=== PATIENT | male | born 1950 | race Caucasian/White ===

== ENCOUNTER → 2016-07-22 | Outpatient (CLI) | payer MEDICARE, OTHER ==
[2016-07-22 11:46] LABS: EKG EKG PERFORMED
[2016-07-22 12:42] LABS: Basophils % (A) 0 %; CH 26.9; CHCM 30.2; Eosinophils % (A) 1 %; HCT 34.9 % (39.0-53.0); HDW 2.88; HGB 10.8 gm/dL (13.0-17.5); Hypochromasia Marked; Luc # (Auto) 0.06; Luc % (Auto) 1; Lymphocytes # (A) 0.4 k/uL (1.0-4.8); Lymphocytes % (A) 7 %; MCH 27.5 pg (25.0-35.0); MCHC 30.9 g/dL (31.0-37.0); MCV 89.1 fL (80.0-100.0); Monocytes # (A) 0.3 k/uL (0-1.0); Monocytes % (A) 6 %; Neutrophils % (A) 85 %; RBC 3.92 m/uL (4.30-5.90); RDW 15.4 % (11.5-15.5); WBC 5.8 k/uL (3.8-10.6)
[2016-07-22 12:46] LABS: Anion Gap 13 mmol/L; Blood Urea Nitrogen 30 mg/dL (9-20); Carbon Dioxide 27 mmol/L (22-30); Chloride 95 mmol/L (98-107); Glucose 195 mg/dL (74-99); Non-African American GFR(MDRD) 59 (>60 ml/min/1.73 sqM); Potassium 4.1 mmol/L (3.5-5.1); Sodium 135 mmol/L (137-145)
== END | disposition home or self-care (01) ==
LOC: LABWHC1 11:24
PROVIDERS: ATTEND Urology
DX: Z01.812 Encounter for preprocedural laboratory examination (principal); E11.9 Type 2 diabetes mellitus without complications; R30.9 Painful micturition, unspecified; I10 Essential (primary) hypertension
CPT/HCPCS: 36415; 80048; 85025; 87077; 87086; 87186; 93005

== ENCOUNTER 2016-07-29 06:14 | Day surgery (SDC) | payer MEDICARE, OTHER ==
[2016-07-23 10:56] VITALS: BMI 23.8
[~2016-07-29 06:14] MED LIST: Pre Op ABX Message 1 EACH MISC MISCELLANE ONE
[2016-07-29] MEDS ORDERED: MIDAZOLAM 2 MG/2 ML VIAL IV PRN (06:25)
[2016-07-29] MEDS ORDERED: ONDANSETRON 4 MG/2 ML VIAL IVP ONE (06:25)
[2016-07-29] MEDS ORDERED: HYDROmorphone 1 MG/ML 1 ML SYRINGE IVP PRN (06:25)
[2016-07-29] MEDS ORDERED: LACTATED RINGERS 1,000 ML IV SCH (06:25)
[2016-07-29] MEDS ORDERED: DEXAMETHASONE SOD PHOSPHATE 10 MG/ML 1 ML VIAL IV ONE (06:25)
[2016-07-29] MEDS ORDERED: SCOPOLAMINE 1.5MG/72HR PATCH TRANSDERM ONE (06:25)
[2016-07-29] MEDS ORDERED: LIDOCAINE 1% 20 ML VIAL (10MG/ML) FOR IV START INTRADERMA PRN (06:25)
[2016-07-29] MEDS ORDERED: LIDOCAINE 1% 20 ML VIAL (10MG/ML) FOR IV START INTRADERMA ONE (07:01)
[2016-07-29 07:07] LABS: Glucose,Whole Blood 200 mg/dL (75-99)
[2016-07-29] MEDS ORDERED: ceFAZolin 1,000 MG in DEXTROSE/WATER 1 50ML.BAG IVPB STA (07:52)
[2016-07-29] MEDS ORDERED: MIDAZOLAM 2 MG/2 ML VIAL ONE (08:03)
[2016-07-29] MEDS ORDERED: SODIUM CHLORIDE 0.9% 50 ML with ceFAZolin 1,000 MG IV ONE ×2 (08:03)
[2016-07-29] MEDS ORDERED: LIDOCAINE 1% INJ 10MG/ML (20 ML MDV) ONE (08:03)
[2016-07-29] MEDS ORDERED: SODIUM CHLORIDE 0.9% 100 ML BAG ONE (08:03)
[2016-07-29] MEDS ORDERED: fentaNYL (PF) 50 MCG/ML 2 ML AMP ONE (08:03)
[2016-07-29] MEDS ORDERED: SUCCINYLCHOLINE CHLORIDE 100 MG/5 ML SYR IV ONE (08:03)
[2016-07-29] MEDS ORDERED: ceFAZolin 1,000 MG VIAL ONE (08:03)
[2016-07-29] MEDS ORDERED: PROPOFOL 10 MG/ML 20 ML VIAL IV ONE (08:03)
[2016-07-29] MEDS ORDERED: LACTATED RINGERS 1,000 ML IV ONE (08:47)
[2016-07-29 09:10] VITALS: TEMP 97.4
[2016-07-29 09:13] LABS: Glucose,Whole Blood 230 mg/dL (75-99)
[2016-07-29] MEDS ORDERED: INSULIN LISPRO (humaLOG) 300 UNIT/3 ML VIAL SQ ONE (09:24)
[2016-07-29 10:19] LABS: Glucose,Whole Blood 246 mg/dL (75-99)
[2016-07-29] MEDS ORDERED: Acetaminophen-Codeine 300-30mg TAB PO ONE (10:23)
[2016-07-29 10:28] VITALS: BP 164/74; PULSE 67; RESP 18
--- NOTE | 2016-07-29 11:06 | OP ---
DATE OF SERVICE: 07/29/2016 SURGEON: HIRAM CALVIN MD PREOPERATIVE DIAGNOSIS: Incomplete bladder emptying secondary to bladder outflow obstruction. POSTOPERATIVE DIAGNOSIS: Incomplete bladder emptying secondary to bladder outflow obstruction. OPERATION: Transurethral resection of bladder neck. ANESTHESIA: General. The patient is a 65-year-old male with a history of a chronic urinary tract infection and incomplete bladder emptying, who has failed treatment with alpha blockers. Cystoscopy identified a relatively short prostatic urethra with a tight bladder neck. The bladder was heavily trabeculated with numerous cellules. Transurethral incision of the prostate was initially planned. DESCRIPTION OF THE PROCEDURE: The patient was taken to the operative suite where adequate general anesthesia via orotracheal intubation was instituted. The patient was placed in the dorsal lithotomy position with his legs suspended from padded Randolph stirrups. Pneumatic compression stockings were applied to the lower legs. The genitalia was prepped with Betadine soap, painted with Betadine solution, and draped in sterile fashion. A prophylactic dorsal urethrotomy to 26 Czech was performed using the Krebs urethrotome. The 26 Czech resectoscope with visual obturator and 30-degree lens was passed through the urethra under direct vision. Anterior urethra was unremarkable. Prostatic urethra was relatively short with a prominent bladder neck. The bladder was examined and some sediment was present on the floor which was irrigated out. The remainder of the bladder was free of tumor, foreign body and diverticulum. Numerous cellules were present and the bladder was heavily trabeculated. I initially had hoped to perform a transurethral incision of the prostate but unfortunately a knife electrode was not available. It was elected to perform a limited resection of the bladder neck. This was performed using the [employer] resectoscope and loop cutting electrode. The bladder neck was incised between 5 o'clock and 7 o'clock down to the capsular fibers. The resection was continued distally up to the region of the veru. Bleeding vessels were controlled using electrocautery. The prostate tissue was removed using the Nelson evacuator. After ensuring adequate hemostasis, the resectoscope was withdrawn. An 18 Czech Meier catheter was inserted and left to gravity drainage. The patient tolerated the procedure well and left the operating room awake and in satisfactory condition. Blood loss was between 5 and 10 mL. Patient's catheter will be removed in the morning provided that his urine is clear. [facility]
== END 2016-07-29 12:01 | disposition home or self-care (01) ==
LOC: OR 06:14
PROVIDERS: ATTEND Urology
DX: N40.1 Benign prostatic hyperplasia with lower urinary tract symptoms (principal); N32.0 Bladder-neck obstruction; R33.9 Retention of urine, unspecified; N34.2 Other urethritis; Z94.2 Lung transplant status; I10 Essential (primary) hypertension; K21.9 Gastro-esophageal reflux disease without esophagitis; E11.9 Type 2 diabetes mellitus without complications; Z79.4 Long term (current) use of insulin; F32.9 Major depressive disorder, single episode, unspecified; M81.0 Age-related osteoporosis without current pathological fracture; J45.909 Unspecified asthma, uncomplicated; Z79.899 Other long term (current) drug therapy; Z79.51 Long term (current) use of inhaled steroids; Z88.1 Allergy status to other antibiotic agents; Z88.8 Allergy status to other drugs, medicaments and biological substances
CPT/HCPCS: 88305; 52500; J2250; J2405; J0690 ×2; J2001; J3010; J0330; J2704

== ENCOUNTER 2016-08-01 01:46 | Emergency (ER) | payer MEDICARE, OTHER ==
[2016-08-01] MEDS ORDERED: MORPHINE SULFATE 4 MG/ML SYRINGE IM STA (02:04)
[2016-08-01 02:07] VITALS: PULSE 75
--- NOTE | 2016-08-01 02:16 | ED ---
General Adult HPI - General Chief complaint: Urogenital Stated complaint: unable to urinate Time Seen by Provider: 08/01/16 01:47 Source: patient Mode of arrival: ambulatory Limitations: no limitations - History of Present Illness Initial comments: This is a 65-year-old male who presents emergency department for urinary retention. The patient recently had prostate surgery 3 days ago. He states that he was doing fine until this afternoon when he was unable to urinate. He has a severe amount of discomfort because of this. He states the last time he urinated was at 4 PM. Denies any nausea or vomiting. No fevers or chills. No other complaints. - Related Data Home Medications Medication Instructions Recorded Confirmed Alendronate Sodium [Fosamax] 70 mg PO WE 11/06/13 07/31/16 Calcium Carbonate [Antacid] 150 mg PO BID 11/06/13 07/31/16 Ergocalciferol (Vitamin D2) 50,000 units PO Q15D 11/06/13 07/31/16 [Drisdol] Fludrocortisone [Florinef] 0.1 mg PO QAM 11/06/13 07/31/16 Gammagard 35 gm IV QMONTH 11/06/13 07/31/16 Metoprolol Succinate (ER) [Toprol 100 mg PO QAM 11/06/13 07/31/16 XL] Omeprazole [PriLOSEC] 20 mg PO BID 11/06/13 07/31/16 Sulfamethox-Tmp 800-160Mg [Bactrim 800 mg PO MOWEFR 11/06/13 07/31/16 DS 800-160 mg] Tacrolimus [Prograf] 3 mg PO BID 11/06/13 07/31/16 Tamsulosin HCl [Flomax] 0.4 mg PO QAM 11/06/13 07/31/16 amLODIPine BESYLATE [Norvasc] 5 mg PO QAM 11/06/13 07/31/16 predniSONE 20 mg PO DAILY 11/06/13 07/31/16 Sodium Bicarbonate Tab 1,300 mg PO BID 11/07/13 07/31/16 Insulin Detemir [Levemir] 50 unit SQ QAM 01/02/14 07/31/16 Azithromycin [Zithromax] 250 mg PO MOWEFR 11/05/15 07/31/16 Sertraline [Zoloft] 25 mg PO QAM 04/30/16 07/31/16 HYDROcodone/APAP 5-325MG [[place] 1 tab PO Q4H PRN 07/23/16 07/31/16 5-325] Magnesium Chloride [Mag64] 64 mg PO BID 07/23/16 07/31/16 Multivitamins, Thera [Multivitamin] 1 tab PO DAILY 07/23/16 07/31/16 Previous Rx's Medication Instructions Recorded Acetaminophen-Codeine 300-30mg 1 tab PO Q6H PRN #10 tablet 07/29/16 [Tylenol w/codeine #3] Allergies Allergy/AdvReac Type Severity Reaction Status Date / Time clarithromycin [From Biaxin] Allergy instructed Verified 07/29/16 06:44 not to take r/t lung transplant ibuprofen [From Motrin] Allergy Abdominal Verified 07/29/16 06:44 Pain Review of Systems ROS Statement: Those systems with pertinent positive or pertinent negative responses have been documented in the HPI. ROS Other: All systems not noted in ROS Statement are negative. Past Medical History Past Medical History: Asthma, COPD, GERD/Reflux, Osteoarthritis (OA), Pneumonia , Respiratory Disorder Additional Past Medical History / Comment(s): ARTHRITIS/BACK PAIN/PULMONARY FIBROSIS/DEGENERATIVE DISC DS/DEPRESSED IMMUNE SYSTEM History of Any Multi-Drug Resistant Organisms: None Reported Past Surgical History: Heart Catheterization, Hernia Repair Additional Past Surgical History / Comment(s): RT & LT CATARACT REMOVED/ COLONOSCOPY/BILATERAL LUNG TRANSPLANT 20082013 HERNIA REPAIR UMBILICAL , LEFT INGUINAL AND FEMEROL Past Anesthesia/Blood Transfusion Reactions: No Reported Reaction Past Psychological History: Anxiety, Depression Smoking Status: Former smoker Past Alcohol Use History: None Reported Past Drug Use History: None Reported General Exam - General Exam Comments Initial Comments: Constitutional: Awake alert ears uncomfortable Head: Normocephalic atraumatic Eyes: no conjunctival injection No scleral icterus EOMI Neck: No JVD Supple Heart: Regular rate rhythm normal S1-S2 no murmurs Lungs: Clear to auscultation bilaterally No wheezing No rales Abdomen: Soft nondistended tenderness in the suprapubic region with distended bladder Extremities: Non edematous DP pulses intact Radial pulses intact Neuro: A&Ox3 No focal neurologic deficits Psych: Appropriate mood and affect Limitations: no limitations Course Vital Signs 08/01/16 01:59 Temperature 98.2 F Pulse Rate 75 Respiratory 20 Rate Blood Pressure 196/86 O2 Sat by Pulse 99 Oximetry Medical Decision Making - Medical Decision Making Patient had Meier catheter placed with immediate draining of over 1000 mL of bloody urine. Urinalysis reveals UTI. The patient is on Macrobid currently along with Bactrim and azithromycin. I told him to neuro telemetry the Meier in. He is to follow-up with Dr. Terrazas her about removal. He can return if he has worsening symptoms. - Lab Data Lab Results 08/01/16 Range/Units 02:10 Urine Color Light Red Urine Appearance Cloudy (Clear) Urine pH 6.0 (5.0-8.0) Ur Specific [place] 1.012 (1.001-1.035) Urine Protein 1+ H (Negative) Urine Glucose (UA) 4+ H (Negative) Urine Ketones Negative (Negative) Urine Blood Large H (Negative) Urine Nitrate Negative (Negative) Urine Bilirubin Negative (Negative) Urine Urobilinogen <2.0 (<2.0) mg/dL Ur Leukocyte Esterase Moderate H (Negative) Urine RBC >182 H (0-5) /hpf Urine WBC >182 H (0-5) /hpf Disposition Clinical Impression: Urinary retention Disposition: HOME SELF-CARE Condition: Stable Instructions: Urinary Tract Infection in Men (ED), Urinary Retention in Men (ED ) Referrals: Louie Alaniz MD [Primary Care Provider] - 1-2 days Kevin Teresa MD [STAFF PHYSICIAN] - 1-2 days
[2016-08-01 02:27] LABS: Appearance,Urine Cloudy (Clear); Bilirubin,Urine Negative (Negative); Glucose,Urine (UA) 4+ (Negative); Ketones,Urine Negative (Negative); Leukocyte Esterase,Urine Moderate (Negative); Nitrite,Urine Negative (Negative); Particle Count 6819; Protein,Urine 1+ (Negative); RBC,Urine >182 /hpf (0-5); Specific Gravity,Urine 1.012 (1.001-1.035); UA Billing (MACRO vs. MICRO) MICRO; Urobilinogen,Urine <2.0 mg/dL (<2.0); WBC,Urine >182 /hpf (0-5)
[2016-08-01 03:01] VITALS: BP 178/78; RESP 18; TEMP 97.8
== END 2016-08-01 03:26 | disposition home or self-care (01) ==
LOC: EC 01:46
DX: R33.9 Retention of urine, unspecified (principal); K21.9 Gastro-esophageal reflux disease without esophagitis; J45.909 Unspecified asthma, uncomplicated; J44.9 Chronic obstructive pulmonary disease, unspecified; F32.9 Major depressive disorder, single episode, unspecified; F41.9 Anxiety disorder, unspecified; Z87.891 Personal history of nicotine dependence; Z79.51 Long term (current) use of inhaled steroids; Z79.4 Long term (current) use of insulin; Z79.899 Other long term (current) drug therapy; Z88.1 Allergy status to other antibiotic agents; Z88.6 Allergy status to analgesic agent; Z98.890 Other specified postprocedural states
CPT/HCPCS: 96372 ×2; 99283 ×2; 51702 ×2; 81001; J2270

== ENCOUNTER → 2017-01-06 | Outpatient (CLI) | payer MEDICARE, OTHER ==
--- NOTE | 2017-01-06 09:23 | US ---
EXAMINATION TYPE: US abdomen limited DATE OF EXAM: 01/06/2017 COMPARISON: NONE CLINICAL HISTORY: 66-year-old male Abdominal distention R14.0. TECHNIQUE: Multiple sonographic images of the 4 abdominal quadrants were obtained. FINDINGS: No ascites fluid is identified in the 4 abdominal quadrants. Incidentally, the liver has a slight het erogeneous echotexture. IMPRESSION: 1. No abdominal ascites fluid seen. The 4 quadrants were scanned. 2. Incidentally, heterogeneous appearance to the liver. This could be on a technical basis. Correlate to exclude underlying nonspecific hepatocellular disease.
== END | disposition home or self-care (01) ==
LOC: RADUSWWP 07:53
PROVIDERS: ATTEND Internal Medicine
DX: R14.0 Abdominal distension (gaseous) (principal)
CPT/HCPCS: 76705

== ENCOUNTER 2017-05-06 11:43 | Emergency (ER) | payer MEDICARE, OTHER ==
[2017-05-06] MEDS ORDERED: HYDROmorphone 1 MG/ML 1 ML SYRINGE IVP STA ×2 (12:16→15:19)
[2017-05-06] MEDS ORDERED: RX INFO: IV CONTRAST WAS GIVEN 1 EACH MISC MISCELLANE PRN (12:16)
--- NOTE | 2017-05-06 12:19 | ED ---
General Adult HPI - General Chief complaint: Back Pain/Injury Stated complaint: dr sent/severe back pain Time Seen by Provider: 05/06/17 12:01 Source: patient, RN notes reviewed Mode of arrival: ambulatory Limitations: physical limitation - History of Present Illness Initial comments: 66 yo male presents to the ER with cc of left-sided back pain. Patient states he does suffer from back pain but over the last 4 days his back pain has been flaring up. He states is in the left side of his back and radiates down his left leg. He sees a pain management doctor for this and he is on [place] and he has had injections. Patient states that his pain was not flared up this much in a very long time and he is concerned. He has multiple specialists he's had multiple surgeries and does have an extensive past medical history. He states that his most recent workup discussed his ascites on his abdomen and discussed most likely a paracentesis at some point in the future. Patient denies any abdominal pain any nausea any vomiting with this. He states just his neck pain radiating down his left leg. He denies any falls traumas or recent. Patient denies any recent fever, chills, shortness of breath, chest pain, abdominal pain , nausea vomiting, numbness or tingling, dysuria or hematuria, constipation or diarrhea, headaches or visual changes, or any other current symptoms. - Related Data Home Medications Medication Instructions Recorded Confirmed Alendronate Sodium [Fosamax] 70 mg PO WE 11/06/13 05/06/17 Ergocalciferol (Vitamin D2) 50,000 units PO Q15D 11/06/13 05/06/17 [Drisdol] Fludrocortisone [Florinef] 0.1 mg PO QAM 11/06/13 05/06/17 Gammagard 35 gm IV Q28D 11/06/13 05/06/17 Metoprolol Succinate (ER) [Toprol 100 mg PO QAM 11/06/13 05/06/17 XL] Omeprazole [PriLOSEC] 20 mg PO BID 11/06/13 05/06/17 Sulfamethox-Tmp 800-160Mg [Bactrim 800 mg PO MOWEFR 11/06/13 05/06/17 DS 800-160 mg] Tacrolimus [Prograf] 3 mg PO BID 11/06/13 05/06/17 predniSONE 20 mg PO DAILY 11/06/13 05/06/17 Sodium Bicarbonate Tab 1,300 mg PO BID 11/07/13 05/06/17 Insulin Detemir [Levemir] 65 unit SQ QAM 01/02/14 05/06/17 Azithromycin [Zithromax] 250 mg PO MOWEFR 11/05/15 05/06/17 Sertraline [Zoloft] 25 mg PO QAM 04/30/16 05/06/17 HYDROcodone/APAP 5-325MG [[place] 1 tab PO TID PRN 07/23/16 05/06/17 5-325] Magnesium Chloride [Mag64] 64 mg PO BID 07/23/16 05/06/17 Multivitamins, Thera [Multivitamin] 1 tab PO DAILY 07/23/16 05/06/17 Ferrous Sulfate [Feosol] 325 mg PO BID 09/29/16 05/06/17 Allopurinol [Zyloprim] 100 mg PO DAILY 05/06/17 05/06/17 Calcium Carbonate 1500mg 1,500 mg PO BID 05/06/17 05/06/17 Fluticasone Nasal [place] [Flonase 2 spr EA NOSTRIL DAILY PRN 05/06/17 05/06/17 Nasal [place]] Losartan/Hydrochlorothiazide 1 tab PO DAILY 05/06/17 05/06/17 [Hyzaar 100-25 Tablet] Metoclopramide [Reglan] 10 mg PO QAM 05/06/17 05/06/17 Sennosides [Senokot] 8.6 mg PO DAILY PRN 05/06/17 05/06/17 amLODIPine [Norvasc] 10 mg PO DAILY 05/06/17 05/06/17 Previous Rx's Medication Instructions Recorded HYDROcodone/APAP 10-325MG [[place] 1 tab PO Q6H PRN #20 tab 05/06/17 10-325] Ondansetron Odt [Zofran ODT] 4 mg PO Q8HR PRN #20 tab 05/06/17 Tamsulosin [Flomax] 0.4 mg PO DAILY #5 cap 05/06/17 Allergies Allergy/AdvReac Type Severity Reaction Status Date / Time clarithromycin [From Biaxin] Allergy instructed Verified 05/06/17 12:27 not to take r/t lung transplant ibuprofen [From Motrin] Allergy Abdominal Verified 05/06/17 12:27 Pain Review of Systems ROS Statement: Those systems with pertinent positive or pertinent negative responses have been documented in the HPI. ROS Other: All systems not noted in ROS Statement are negative. Past Medical History Past Medical History: Asthma, COPD, Diabetes Mellitus, GERD/Reflux, Osteoarthritis (OA), Pneumonia, Prostate Disorder, Renal Disease, Respiratory Disorder Additional Past Medical History / Comment(s): having difficulty urinating, daily steroid,ARTHRITIS/BACK PAIN/PULMONARY FIBROSIS/DEGENERATIVE DISC DS/ DEPRESSED IMMUNE SYSTEM History of Any Multi-Drug Resistant Organisms: None Reported Past Surgical History: Heart Catheterization, Hernia Repair Additional Past Surgical History / Comment(s): RT & LT CATARACT REMOVED/ COLONOSCOPY/BILATERAL LUNG TRANSPLANT 20082013 HERNIA REPAIR UMBILICAL , LEFT INGUINAL AND FEMEROL. TURP - 2015 Past Anesthesia/Blood Transfusion Reactions: No Reported Reaction Past Psychological History: Anxiety, Depression Smoking Status: Former smoker Past Alcohol Use History: None Reported Past Drug Use History: None Reported - Past Family History Mother Family Medical History: No Reported History General Exam - General Exam Comments Initial Comments: General: The patient is awake and alert, in no distress, and does not appear acutely ill. Eye: Pupils are equal, round and reactive to light, extra-ocular movements are intact; there is normal conjunctiva bilaterally. No signs of icterus. Ears, nose, mouth and throat: There are moist mucous membranes and. Neck: The neck is supple, there is no tenderness. Cardiovascular: There is a regular rate and rhythm. No murmur, rub or gallop is appreciated. Respiratory: Lungs are clear to auscultation, respirations are non-labored, breath sounds are equal. No wheezes, stridor, rales, or rhonchi. Gastrointestinal: Soft, non-distended, non-tender abdomen without masses or organomegaly noted. There is no rebound or guarding present. Left sided CVA tenderness. Bowel sounds are unremarkable. Back: There is no tenderness to palpation in the midline. There is no obvious deformity. No rashes noted. Left sided straight leg raise is positive. Musculoskeletal: Normal ROM, no tenderness, There is no pedal edema. There is no calf tenderness or swelling. Sensation intact. Pulses equal bilaterally 2+. Neurological: CN II-XII intact, There are no obvious motor or sensory deficits. Coordination appears grossly intact. Speech is normal. Skin: Skin is warm and dry and no rashes or lesions are noted. Psychiatric: Cooperative, appropriate mood & affect, normal judgment. Limitations: physical limitation Course Vital Signs 05/06/17 05/06/17 11:53 14:21 Temperature 98.0 F Pulse Rate 80 71 Respiratory 20 20 Rate Blood Pressure 162/72 147/71 O2 Sat by Pulse 97 97 Oximetry Medical Decision Making - Medical Decision Making 66-year-old male presents to the emergency department with a chief complaint of left-sided flank pain and back pain. At this time patient's CAT scan has been discussed in detail with them. We did discuss the findings. He does have history of the bladder issues in the past. At this time it does appear to be a 6 mm calculus to the left ureter. This tenderness is a 60 causing the patient' s flank pain. This time we will give him pain medications for home. We discussed taking the Flomax that he states he has at home as well as nausea medication. We did discuss follow-up with urology and he states that he normally sees Dr. catherine castillo. We will give him Dr. Penn as well since he is on-call. We did discuss return parameters all questions. The patient stated that he understood any significant this plan. This time he will be discharged home. - Lab Data Result diagrams: 05/06/17 12:31 05/06/17 12:31 Lab Results 05/06/17 05/06/17 Range/Units 12:31 12:31 WBC 9.5 (3.8-10.6) k/uL RBC 4.12 L (4.30-5.90) m/uL Hgb 13.5 (13.0-17.5) gm/dL Hct 41.2 (39.0-53.0) % MCV 99.8 (80.0-100.0) fL MCH 32.7 (25.0-35.0) pg MCHC 32.7 (31.0-37.0) g/dL RDW 14.8 (11.5-15.5) % Plt Count 137 L (150-450) k/uL Neutrophils % 83 % Lymphocytes % 7 % Monocytes % 7 % Eosinophils % 1 % Basophils % 1 % Neutrophils # 7.9 H (1.3-7.7) k/uL Lymphocytes # 0.7 L (1.0-4.8) k/uL Monocytes # 0.7 (0-1.0) k/uL Eosinophils # 0.1 (0-0.7) k/uL Basophils # 0.1 (0-0.2) k/uL Macrocytosis Slight Sodium 135 L (137-145) mmol/L Potassium 4.3 (3.5-5.1) mmol/L Chloride 97 L (98-107) mmol/L Carbon Dioxide 26 (22-30) mmol/L Anion Gap 12 mmol/L BUN 24 H (9-20) mg/dL Creatinine 1.48 H (0.66-1.25) mg/dL Est GFR (MDRD) Af Amer 57 (>60 ml/min/1.73 sqM) Est GFR (MDRD) Non-Af 47 (>60 ml/min/1.73 sqM) Glucose 160 H (74-99) mg/dL Calcium 9.7 (8.4-10.2) mg/dL Phosphorus 2.6 (2.5-4.5) mg/dL Magnesium 1.5 L (1.6-2.3) mg/dL Total Bilirubin 0.6 (0.2-1.3) mg/dL AST 68 H (17-59) U/L ALT 77 H (21-72) U/L Alkaline Phosphatase 108 (38-126) U/L Total Protein 8.2 (6.3-8.2) g/dL Albumin 4.5 (3.5-5.0) g/dL Amylase 58 (30-110) U/L Lipase 99 (23-300) U/L - Radiology Data Radiology results: report reviewed, image reviewed Disposition Clinical Impression: Left ureteral calculus, Lymphadenopathy, Chronic back pain Disposition: HOME SELF-CARE Condition: Stable Instructions: Chronic Back Pain (ED), Kidney Stones (ED) Additional Instructions: Please use medication as discussed. Please follow up with family doctor if symptoms have not improved over the next two days. Please return to the emergency room if your symptoms increase or worsen or for any other concerns. Prescriptions: HYDROcodone/APAP 10-325MG [[place] 10-325] 1 tab PO Q6H PRN #20 tab PRN Reason: Pain Ondansetron Odt [Zofran ODT] 4 mg PO Q8HR PRN #20 tab PRN Reason: Nausea Tamsulosin [Flomax] 0.4 mg PO DAILY #5 cap Referrals: Reinaldo Alaniz MD [STAFF PHYSICIAN] - 1-2 days Robinson Christie MD [STAFF PHYSICIAN] - 1-2 days Time of Disposition: 15:18
[2017-05-06 12:46] LABS: Basophils # (A) 0.1 k/uL (0-0.2); Basophils % (A) 1 %; CH 33.8; Eosinophils # (A) 0.1 k/uL (0-0.7); Eosinophils % (A) 1 %; HCT 41.2 % (39.0-53.0); HDW 3.08; HGB 13.5 gm/dL (13.0-17.5); Luc # (Auto) 0.15; Luc % (Auto) 2; Lymphocytes # (A) 0.7 k/uL (1.0-4.8); Lymphocytes % (A) 7 %; MCH 32.7 pg (25.0-35.0); MCHC 32.7 g/dL (31.0-37.0); MCV 99.8 fL (80.0-100.0); Macrocytosis Slight; Monocytes # (A) 0.7 k/uL (0-1.0); Monocytes % (A) 7 %; Neutrophils # (A) 7.9 k/uL (1.3-7.7); Neutrophils % (A) 83 %; RBC 4.12 m/uL (4.30-5.90); RDW 14.8 % (11.5-15.5); WBC 9.5 k/uL (3.8-10.6); WBC (Perox) 9.56
[2017-05-06 12:56] LABS: Calcium 9.7 mg/dL (8.4-10.2); Magnesium 1.5 mg/dL (1.6-2.3); Phosphorus 2.6 mg/dL (2.5-4.5); Potassium 4.3 mmol/L (3.5-5.1); Total Bilirubin 0.6 mg/dL (0.2-1.3); Total Protein 8.2 g/dL (6.3-8.2)
--- NOTE | 2017-05-06 13:54 | CT ---
EXAMINATION TYPE: CT abdomen pelvis wo con DATE OF EXAM: 05/06/2017 COMPARISON: NONE HISTORY: 66-year-old male Severe back pain CT DLP: 754 mGycm. Automated exposure control for dose reduction was used. TECHNIQUE: Contiguous axial scanning of the abdomen and pelvis without IV contrast. Coronal and sagit jarrett reconstructions performed. FINDINGS: The heart is upper limits of normal in size without pericardial effusion. Coronary vessel calcificati ons are present in remarkable for coronary artery disease. Calcified right hilar and left paraesophag eal lymph nodes suggest prior granulomatous disease. Strandy atelectasis or scarring in the lower nick gs. Small hiatal hernia. Noncontrast appearance of the liver, adrenal glands, kidneys, and atrophic pancreas show no gross abn ormality. There is small dependent gallstones without abnormal gallbladder distention. Splenomegaly at 15.5 cm craniocaudal. Despite the absence of hydronephrosis, there is a suspicious 6 mm calcification in the left hemipelvi s along the course of the distal left ureter. No dilated small bowel, free fluid, or free air. Mild prostatic calcifications within the abdominal aorta and iliac arteries. There is a small right mid abdominal omental fat-containing hernia measuring 2.0 cm. The abdominal wa ll defect is very small. Mild surrounding inflammation. There seems to be some surgical material lisa g the left paramedian upper to mid abdomen. Mild stool burden in mild sigmoid diverticulosis without pericolonic inflammatory change. Mild circumferential bladder wall thickening with bladder diverticula noted measuring up to 2.8 cm. T here is a 3.3 x 1.3 cm lobulated hypodense area anterolateral aspect of the bladder wall just deep to the abdominal wall musculature which extends to the level of the superficial inguinal ring, axial im age 71. Exact etiology is uncertain. There appears to be a subtle fat plane on the coronal series, im age 48. Follow-up can be performed. Otherwise, no lymphadenopathy or abnormal fluid collection seen i n the pelvis. Bones: Sclerotic focus measuring 1.3 cm medial posterior right iliac bone was present back in 2009 co mpatible with a benign bone island. Degenerated dextroconvex curvature. IMPRESSION: 1. 6 mm distal left ureteral calculus without significant hydronephrosis. 2. Small 2 cm omental fat-containing hernia through a tiny defect in the right mid abdominal wall. T here is some surrounding fat stranding that could represent mild inflammation such as in the setting of fatty hernia incarceration. Correlate for any focal pain here. 3. Splenomegaly and cholelithiasis. Small hiatal hernia. 4. Mild circumferential bladder wall thickening and diverticular change in the bladder. Findings sug gest chronic bladder outlet obstruction. Clinically correlate. 5. A 3.3 x 1.3 cm lobulated hypodense area located anterolateral to the bladder just deep to the abd ominal wall musculature. Etiology is uncertain. Recommend three-month follow-up to exclude abnormal l ymphadenopathy.
[2017-05-06 15:27] VITALS: BP 153/71; PULSE 70; RESP 16; TEMP 98.9
== END 2017-05-06 15:35 | disposition home or self-care (01) ==
LOC: EC 11:43
DX: N20.1 Calculus of ureter (principal); R59.1 Generalized enlarged lymph nodes; M54.9 Dorsalgia, unspecified; G89.29 Other chronic pain; J44.1 Chronic obstructive pulmonary disease with (acute) exacerbation; E11.9 Type 2 diabetes mellitus without complications; K21.9 Gastro-esophageal reflux disease without esophagitis; M19.90 Unspecified osteoarthritis, unspecified site; N42.9 Disorder of prostate, unspecified; F32.9 Major depressive disorder, single episode, unspecified; F41.9 Anxiety disorder, unspecified; Z87.891 Personal history of nicotine dependence; Z79.4 Long term (current) use of insulin; Z79.52 Long term (current) use of systemic steroids; Z79.899 Other long term (current) drug therapy; Z88.1 Allergy status to other antibiotic agents; Z88.6 Allergy status to analgesic agent
CPT/HCPCS: 36415; 80053; 82150; 83690; 83735; 84100; 85025; 74176; 99284; 96374; 96376; J1170

== ENCOUNTER → 2017-07-29 | Outpatient (CLI) | payer MEDICARE, OTHER ==
--- NOTE | 2017-07-29 14:49 | XR ---
EXAMINATION TYPE: XR abdomen 1V DATE OF EXAM: 07/29/2017 CLINICAL DATA: 66-year-old male kidney stones, pain, PHH COMPARISON: Correlation CT 05/06/2017 FINDINGS: Supine imaging limited for assessment of free intraperitoneal air. Mild stool burden. No dilated small bowel loops. Prominent air and likely ingested debris within the stomach. Gallstones are seen in the right upper quadrant as well as splenic artery calcifications in the left upper quadrant. Possible 3 mm calcification projecting at the right mid kidney. A 1.1 cm density projecting over the right SI joint corresponds to a bone island in the posterior rig ht iliac bone. Vascular calcifications and surgical clips in the pelvis. IMPRESSION: 1. A 3 mm right renal calculus, new from 05/06/2017, is possible. 2. Otherwise, calcifications seem to represent cholelithiasis, splenic artery calcifications, and a r ight sided pelvic bone island.
== END | disposition home or self-care (01) ==
LOC: RADXRMAIN 13:17
PROVIDERS: ATTEND Urology
DX: K80.20 Calculus of gallbladder without cholecystitis without obstruction (principal); I70.8 Atherosclerosis of other arteries; M89.8X8 Other specified disorders of bone, other site
CPT/HCPCS: 74018

== ENCOUNTER 2018-03-02 13:35 | Emergency (ER) | payer MEDICARE, OTHER ==
[2018-03-02 14:09] VITALS: RESP 18
--- NOTE | 2018-03-02 15:02 | ED ---
General Adult HPI - General Chief complaint: Fall Stated complaint: fall, rt knee pain Time Seen by Provider: 03/02/18 14:15 Source: patient, family, RN notes reviewed Mode of arrival: wheelchair Limitations: no limitations - History of Present Illness Initial comments: 67-year-old male sent to the emergency department for a chief complaint of fall times one day. Patient states he was pushing a hammock with wheals across his yard yesterday when he tripped and fell. Patient states he injured his right elbow and right knee as well as his left shoulder. Patient is concerned most about the right knee. He states it is painful to walk on and he has been using his cane due to the pain. Patient denies any pain in the calf. Patient denies hitting his head. Patient denies any neck or back pain. Patient states he can move the right elbow without any difficulty but does have pain with moving the left shoulder and right knee. Patient has no other complaints at this time including shortness of breath, chest pain, abdominal pain, nausea or vomiting, headache, or visual changes. - Related Data Home Medications Medication Instructions Recorded Confirmed Alendronate Sodium [Fosamax] 70 mg PO WE 11/06/13 03/02/18 Ergocalciferol (Vitamin D2) 50,000 units PO Q15D 11/06/13 03/02/18 [Drisdol] Fludrocortisone [Florinef] 0.1 mg PO QAM 11/06/13 03/02/18 Metoprolol Succinate (ER) [Toprol 100 mg PO QAM 11/06/13 03/02/18 XL] Sulfamethox-Tmp 800-160Mg [Bactrim 800 mg PO MOWEFR 11/06/13 03/02/18 DS 800-160 mg] Tacrolimus [Prograf] 3 mg PO BID 11/06/13 03/02/18 Sodium Bicarbonate Tab 1,300 mg PO BID 11/07/13 03/02/18 Insulin Detemir [Levemir] 65 unit SQ QAM 01/02/14 03/02/18 Azithromycin [Zithromax] 250 mg PO MOWEFR 11/05/15 03/02/18 HYDROcodone/APAP 5-325MG [Tyler 1 tab PO QID PRN 07/23/16 03/02/18 5-325] Magnesium Chloride [Mag64] 64 mg PO BID 07/23/16 03/02/18 Multivitamins, Thera [Multivitamin] 1 tab PO DAILY 07/23/16 03/02/18 Ferrous Sulfate [Feosol] 325 mg PO BID 09/29/16 03/02/18 Allopurinol [Zyloprim] 100 mg PO DAILY 05/06/17 03/02/18 Calcium Carbonate 1500mg 1,500 mg PO MOFR 05/06/17 03/02/18 Losartan/Hydrochlorothiazide 1 tab PO DAILY 05/06/17 03/02/18 [Hyzaar 100-25 Tablet] Metoclopramide [Reglan] 10 mg PO QAM 05/06/17 03/02/18 amLODIPine [Norvasc] 10 mg PO DAILY 05/06/17 03/02/18 Omeprazole [PriLOSEC] 40 mg PO DAILY 03/02/18 03/02/18 Sertraline [Zoloft] 50 mg PO DAILY 03/02/18 03/02/18 Triamcinolone Acetonide 1 applic TOPICAL BID 03/02/18 03/02/18 [Triamcinolone Acetonide 0.025%] predniSONE 5 mg PO DAILY 03/02/18 03/02/18 Allergies Allergy/AdvReac Type Severity Reaction Status Date / Time clarithromycin [From Biaxin] Allergy instructed Verified 03/02/18 14:18 not to take r/t lung transplant ibuprofen [From Motrin] Allergy Abdominal Verified 03/02/18 14:18 Pain Review of Systems ROS Statement: Those systems with pertinent positive or pertinent negative responses have been documented in the HPI. ROS Other: All systems not noted in ROS Statement are negative. Past Medical History Past Medical History: Asthma, COPD, Diabetes Mellitus, GERD/Reflux, Osteoarthritis (OA), Pneumonia, Prostate Disorder, Renal Disease, Respiratory Disorder Additional Past Medical History / Comment(s): having difficulty urinating, daily steroid,ARTHRITIS/BACK PAIN/PULMONARY FIBROSIS/DEGENERATIVE DISC DS/ DEPRESSED IMMUNE SYSTEM. FELL ON 03/01/18. History of Any Multi-Drug Resistant Organisms: None Reported Past Surgical History: Heart Catheterization, Hernia Repair Additional Past Surgical History / Comment(s): RT & LT CATARACT REMOVED/ COLONOSCOPY/BILATERAL LUNG TRANSPLANT 20082013 HERNIA REPAIR UMBILICAL , LEFT INGUINAL AND FEMEROL. TURP - 2015 Past Anesthesia/Blood Transfusion Reactions: No Reported Reaction Past Psychological History: Anxiety, Depression Smoking Status: Former smoker Past Alcohol Use History: Occasional Past Drug Use History: None Reported - Past Family History Mother Family Medical History: No Reported History General Exam - General Exam Comments Initial Comments: Right elbow: Patient has full range of motion including flexion and extension of the right elbow. There is mild ecchymosis noted to the lateral right elbow about 5 cm x 5 cm. No tenderness to the right elbow. Capillary refill less than 2 seconds and radial pulse 2+ in the right upper extremity. Restaurant Kitchen Manager strength 5 out of 5. Sensation intact Right knee: Patient has full extension with about 90 flexion of the right knee. Capillary refill less than 2 seconds and pedal pulse 2+ in the right lower extremity. No erythema, edema, swelling or signs of infection on the right knee. Mild tenderness noted to the lateral right knee. No calf tenderness, erythema, swelling, or increased warmth. Negative Homans sign. Sensation intact in the right lower extremity and full range motion of all digits. Left shoulder: Mild lateral shoulder tenderness. 90 flexion and abduction and of left shoulder. Sensation intact in left upper extremity. Capillary refill less than 2 seconds and radial pulse 2+. Restaurant Kitchen Manager strength 5 out of 5. No AC joint tenderness. Limitations: no limitations General appearance: alert, in no apparent distress Head exam: Present: atraumatic, normocephalic, normal inspection Eye exam: Present: normal appearance. Absent: scleral icterus, conjunctival injection ENT exam: Present: normal exam, mucous membranes moist Neck exam: Present: normal inspection, full ROM. Absent: tenderness, meningismus, lymphadenopathy Respiratory exam: Present: normal lung sounds bilaterally. Absent: respiratory distress, wheezes, rales, rhonchi, stridor Cardiovascular Exam: Present: regular rate, normal rhythm, normal heart sounds. Absent: systolic murmur, diastolic murmur, rubs, gallop, clicks Neurological exam: Present: alert, oriented X3, CN II-XII intact Psychiatric exam: Present: normal affect, normal mood Course Vital Signs 03/02/18 03/02/18 14:06 16:16 Temperature 98.5 F 96.9 F L Pulse Rate 61 53 L Respiratory 18 18 Rate Blood Pressure 108/61 112/59 O2 Sat by Pulse 98 98 Oximetry Medical Decision Making - Medical Decision Making 67-year-old male who presents after falling yesterday. Patient complains of right elbow and knee pain as well as left shoulder pain. He did not hit his head and denies neck back pain or headache. Right elbow patient has full range of motion but there is mild ecchymosis noted. No tenderness. Right knee patient has about 90 flexion with full extension. Neurovascular intact. Mild tenderness noted to the lateral right knee. Negative Homans sign. No calf tenderness or concern for DVT. Patient has 90 flexion and abduction of the left shoulder. Mild lateral tenderness noted. Neurovascular intact in the upper airways bilaterally as well as right lower extremity.X-ray of the left shoulder shows a normal shoulder. No fractures or dislocations evident. X-ray of the right knee shows a small joint effusion and mild anterior soft tissue swelling. No acute osseous abnormality seen. X-ray of the right elbow shows no acute osseous abnormality. No abnormal elevation of posterior fat pad is evident. Discussed with patient that x-ray does not show ligamentous damage of the knee. Patient was given a knee immobilizer. He will take Motrin and Tylenol for pain and rest ice and elevate the right knee. Patient will follow up with orthopedics. He will return if he has any worsening symptoms. Disposition Clinical Impression: Knee pain, right Disposition: HOME SELF-CARE Condition: Good Instructions: Knee Pain (ED) Additional Instructions: Please follow up with primary care in 1-2 days. Follow-up with orthopedics for your knee. Wear knee immobilizer with ambulation. Take Tylenol for pain. Rest ice and elevate the right knee. Return to the emergency department if you have any worsening symptoms. Is patient prescribed a controlled substance at d/c from ED?: No Referrals: Louie Alaniz MD [Primary Care Provider] - 1-2 days Time of Disposition: 15:47
--- NOTE | 2018-03-02 15:19 | XR ---
EXAMINATION TYPE: XR knee complete RT DATE OF EXAM: 03/02/2018 COMPARISON: NONE HISTORY: 67-year-old male with pain after fall TECHNIQUE: 3 views FINDINGS: Small knee joint effusion. Mild prepatellar soft tissue swelling overlying the patellar tendon. No ac lyssa fracture, subluxation, or dislocation seen. IMPRESSION: Small knee joint effusion and mild anterior soft tissue swelling. No acute osseous abnormality seen. If concern for internal derangement, follow-up MRI.
--- NOTE | 2018-03-02 15:23 | XR ---
EXAMINATION TYPE: XR elbow complete RT DATE OF EXAM: 03/02/2018 COMPARISON: None HISTORY: Pain following fall TECHNIQUE: Three-view right elbow FINDINGS: Radius aligns normally with the humerus. No acute fractures are evident. Anterior fat pad i s normal. No abnormal elevation of the posterior fat pad is evident. Others some degenerative joint c hanges present. IMPRESSION: 1. No acute osseous abnormality. 2. Follow-up exam can be performed 7-10 days from acute trauma for continued pain.
--- NOTE | 2018-03-02 15:25 | XR ---
EXAMINATION TYPE: XR shoulder complete LT DATE OF EXAM: 03/02/2018 COMPARISON: NONE HISTORY: Pain TECHNIQUE: Shoulder examined in 3 FINDINGS: The humeral head articulates with the glenoid. The acromio-clavicular junction is normal. No acute fractures or dislocations are evident. A follow up study can be performed 7-10 days from acute trauma for continued pain. IMPRESSION: 1. Normal Shoulder
[2018-03-02] MEDS ORDERED: ACETAMINOPHEN TAB 500 MG TAB PO STA (15:48)
[2018-03-02 16:19] VITALS: BP 112/59; PULSE 53; TEMP 96.9
== END 2018-03-02 16:14 | disposition home or self-care (01) ==
LOC: EC 13:35
DX: M25.561 Pain in right knee (principal); S50.01XA Contusion of right elbow, initial encounter; M25.512 Pain in left shoulder; J44.9 Chronic obstructive pulmonary disease, unspecified; E11.9 Type 2 diabetes mellitus without complications; K21.9 Gastro-esophageal reflux disease without esophagitis; M19.90 Unspecified osteoarthritis, unspecified site; F41.9 Anxiety disorder, unspecified; F32.9 Major depressive disorder, single episode, unspecified; Z87.891 Personal history of nicotine dependence; Z98.890 Other specified postprocedural states; Z79.4 Long term (current) use of insulin; Z79.51 Long term (current) use of inhaled steroids; Z79.52 Long term (current) use of systemic steroids; Z79.899 Other long term (current) drug therapy; W01.0XXA Fall on same level from slipping, tripping and stumbling without subsequent striking against object, initial encounter; Y92.017 Garden or yard in single-family (private) house as the place of occurrence of the external cause; Y93.89 Activity, other specified
CPT/HCPCS: 99283

== ENCOUNTER → 2019-03-10 | Outpatient (CLI) | payer MEDICARE, OTHER ==
[~2019-03-10] MED LIST changes: +ACETAMINOPHEN TAB 325 MG TAB PO NR; +IMMUNE GLOBULIN IV NR; -Pre Op ABX Message 1 EACH MISC MISCELLANE ONE; +SODIUM CHLORIDE 0.9% 500 ML 500 ML in EMPTY BAG 1 BAG IV PRN; +diphenhydrAMINE 50 MG/ML 1 ML VIAL IVP NR
[2019-03-10 10:29] VITALS: PULSE 57; TEMP 98
[2019-03-10 11:13] LABS: Basophils # (A) 0.1 k/uL (0-0.2); Basophils % (A) 1 %; Eosinophils % (A) 0 %; HCT 36.4 % (39.0-53.0); HGB 11.5 gm/dL (13.0-17.5); Lymphocytes # (A) 0.3 k/uL (1.0-4.8); Lymphocytes % (A) 4 %; MCH 32.1 pg (25.0-35.0); MCHC 31.7 g/dL (31.0-37.0); MCV 101.5 fL (80.0-100.0); Macrocytosis Slight; Mean Platelet Volume 8.5; Monocytes # (A) 0.5 k/uL (0-1.0); Monocytes % (A) 6 %; Neutrophils # (A) 6.6 k/uL (1.3-7.7); Neutrophils % (A) 88 %; RBC 3.59 m/uL (4.30-5.90); RDW 15.8 % (11.5-15.5); WBC 7.5 k/uL (3.8-10.6)
[2019-03-10 11:22] LABS: Platelet Count 85 k/uL (150-450)
[2019-03-10 11:35] LABS: Albumin 4.1 g/dL (3.5-5.0); Calcium 9.5 mg/dL (8.4-10.2); Magnesium 2.2 mg/dL (1.6-2.3); Potassium 5.1 mmol/L (3.5-5.1); Total Bilirubin 0.5 mg/dL (0.2-1.3)
[2019-03-10 12:36] VITALS: RESP 16
[2019-03-10 12:53] VITALS: BP 156/71
[2019-03-11 10:47] LABS: Tacrolimus (FK506) 5.5 ng/mL (5.0-20.0)
[2019-03-13 15:10] LABS: CMV DNA Qualitative Not detected (Not detected); CMV DNA, Quantitative <50 IU/mL (<50); LOG CMV Copies/mL <126 Copies/mL (<126); Log Cytomegalovirus <1.70 (<1.70)
== END | disposition home or self-care (01) ==
LOC: PROCWHC3 10:03
PROVIDERS: ATTEND Internal Medicine
DX: D80.1 Nonfamilial hypogammaglobulinemia (principal); Z48.298 Encounter for aftercare following other organ transplant; Z94.2 Lung transplant status
CPT/HCPCS: 80053; 80197; 83735; 85025; 87497; 96365; 96366; 36415; J1200; J1566

== ENCOUNTER → 2019-04-10 | Outpatient (CLI) | payer MEDICARE, OTHER ==
[~2019-04-10] MED LIST changes: -ACETAMINOPHEN TAB 325 MG TAB PO NR; +ACETAMINOPHEN TAB 325 MG TAB PO ONE; -diphenhydrAMINE 50 MG/ML 1 ML VIAL IVP NR; +diphenhydrAMINE 50 MG/ML 1 ML VIAL IVP ONE
[2019-04-10 09:54] VITALS: RESP 16; TEMP 98.1
[2019-04-10 10:13] LABS: Basophils # (A) 0.1 k/uL (0-0.2); Basophils % (A) 2 %; Eosinophils # (A) 0.2 k/uL (0-0.7); Eosinophils % (A) 4 %; HCT 36.2 % (39.0-53.0); HGB 11.7 gm/dL (13.0-17.5); Hypochromasia Slight; Lymphocytes # (A) 0.7 k/uL (1.0-4.8); Lymphocytes % (A) 11 %; MCH 33.3 pg (25.0-35.0); MCHC 32.5 g/dL (31.0-37.0); MCV 102.7 fL (80.0-100.0); Macrocytosis Slight; Mean Platelet Volume 7.9; Monocytes # (A) 0.6 k/uL (0-1.0); Monocytes % (A) 10 %; Neutrophils # (A) 4.4 k/uL (1.3-7.7); Neutrophils % (A) 71 %; RBC 3.52 m/uL (4.30-5.90); RDW 15.1 % (11.5-15.5); WBC 6.2 k/uL (3.8-10.6)
[2019-04-10 10:20] LABS: Platelet Count 85 k/uL (150-450)
[2019-04-10 10:23] LABS: Albumin 4.1 g/dL (3.5-5.0); Calcium 9.4 mg/dL (8.4-10.2); Potassium 4.5 mmol/L (3.5-5.1); Total Bilirubin 0.7 mg/dL (0.2-1.3); Total Protein 7.1 g/dL (6.3-8.2)
[2019-04-10 11:54] VITALS: BP 147/69; PULSE 62
[2019-04-11 16:04] LABS: Tacrolimus (FK506) 5.6 ng/mL (5.0-20.0)
[2019-04-12 12:59] LABS: CMV DNA Qualitative Not detected (Not detected); CMV DNA, Quantitative <50 IU/mL (<50); Log Cytomegalovirus <1.70 (<1.70)
== END | disposition home or self-care (01) ==
LOC: PROCWHC3 09:12
PROVIDERS: ATTEND Internal Medicine
DX: D80.1 Nonfamilial hypogammaglobulinemia (principal); Z48.298 Encounter for aftercare following other organ transplant; Z94.2 Lung transplant status
CPT/HCPCS: 80053; 80197; 85025; 87497; 96365; 96366; 96375; 36415; J1200; J1566

== ENCOUNTER → 2019-05-10 | Outpatient (CLI) | payer MEDICARE, OTHER ==
[~2019-05-10] MED LIST changes: -ACETAMINOPHEN TAB 325 MG TAB PO ONE; +IMMUNE GLOBULIN IV ONE; +[UNRECOGNIZED DRUG - OTHER] IV ONE; +diphenhydrAMINE 50 MG/ML 1 ML VIAL IM ONE
[2019-05-10 10:46] VITALS: RESP 16; TEMP 97.8
[2019-05-10 11:09] LABS: Basophils # (A) 0.2 k/uL (0-0.2); Basophils % (A) 2 %; Eosinophils # (A) 0.2 k/uL (0-0.7); Eosinophils % (A) 3 %; HCT 38.6 % (39.0-53.0); HGB 12.3 gm/dL (13.0-17.5); Lymphocytes # (A) 1.1 k/uL (1.0-4.8); Lymphocytes % (A) 15 %; MCH 31.6 pg (25.0-35.0); MCV 98.7 fL (80.0-100.0); Mean Platelet Volume 7.5; Monocytes # (A) 0.8 k/uL (0-1.0); Monocytes % (A) 11 %; Neutrophils # (A) 4.9 k/uL (1.3-7.7); Neutrophils % (A) 67 %; RBC 3.91 m/uL (4.30-5.90); RDW 14.7 % (11.5-15.5); WBC 7.4 k/uL (3.8-10.6)
[2019-05-10 11:11] LABS: Albumin 4.3 g/dL (3.5-5.0); Calcium 9.7 mg/dL (8.4-10.2); Magnesium 1.9 mg/dL (1.6-2.3); Potassium 4.1 mmol/L (3.5-5.1); Total Bilirubin 0.6 mg/dL (0.2-1.3); Total Protein 7.6 g/dL (6.3-8.2)
[2019-05-10 11:19] LABS: Platelet Count 95 k/uL (150-450)
[2019-05-10 11:42] VITALS: BP 140/67; PULSE 54
[2019-05-11 12:03] LABS: Tacrolimus (FK506) 7.3 ng/mL (5.0-20.0)
[2019-05-12 13:32] LABS: CMV DNA Qualitative Not detected (Not detected); CMV DNA, Quantitative <50 IU/mL (<50); LOG CMV Copies/mL <126 Copies/mL (<126); Log Cytomegalovirus <1.70 (<1.70)
== END | disposition home or self-care (01) ==
LOC: PROCWHC3 09:55
PROVIDERS: ATTEND Internal Medicine
DX: D80.1 Nonfamilial hypogammaglobulinemia (principal); Z48.298 Encounter for aftercare following other organ transplant; Z94.2 Lung transplant status
CPT/HCPCS: 80053; 80197; 83735; 85025; 87497; 96365; 96366; 96375; 36415; J1200; J1566 ×2

== ENCOUNTER → 2019-06-13 | Outpatient (CLI) | payer MEDICARE, OTHER ==
[~2019-06-13] MED LIST changes: +ACETAMINOPHEN TAB 325 MG TAB PO NR; +IMMUNE GLOBULIN (GAMMAGARD) 10 GM in EMPTY BAG 1 BAG IV NR; +IMMUNE GLOBULIN (GAMMAGARD) 20 GM in EMPTY BAG 1 BAG IV NR; -IMMUNE GLOBULIN IV NR; -IMMUNE GLOBULIN IV ONE; -[UNRECOGNIZED DRUG - OTHER] IV ONE; -diphenhydrAMINE 50 MG/ML 1 ML VIAL IM ONE; +diphenhydrAMINE 50 MG/ML 1 ML VIAL IVP NR; -diphenhydrAMINE 50 MG/ML 1 ML VIAL IVP ONE
[2019-06-13 10:22] VITALS: RESP 16; TEMP 97.8
[2019-06-13 10:32] LABS: Basophils # (A) 0.1 k/uL (0-0.2); Basophils % (A) 1 %; Eosinophils # (A) 0.2 k/uL (0-0.7); Eosinophils % (A) 3 %; HCT 33.9 % (39.0-53.0); HGB 11.1 gm/dL (13.0-17.5); Lymphocytes # (A) 0.9 k/uL (1.0-4.8); Lymphocytes % (A) 15 %; MCH 32.9 pg (25.0-35.0); MCHC 32.6 g/dL (31.0-37.0); Macrocytosis Slight; Mean Platelet Volume 9.5; Monocytes # (A) 0.5 k/uL (0-1.0); Monocytes % (A) 9 %; Neutrophils # (A) 4.3 k/uL (1.3-7.7); Neutrophils % (A) 71 %; RBC 3.36 m/uL (4.30-5.90); RDW 15.1 % (11.5-15.5); WBC 6.1 k/uL (3.8-10.6)
[2019-06-13 10:43] LABS: Albumin 4.2 g/dL (3.5-5.0); Calcium 8.9 mg/dL (8.4-10.2); Potassium 3.8 mmol/L (3.5-5.1); Total Bilirubin 0.6 mg/dL (0.2-1.3); Total Protein 7.2 g/dL (6.3-8.2)
[2019-06-13 10:51] VITALS: BP 143/63; PULSE 59
[2019-06-13 11:16] LABS: Platelet Count 76 k/uL (150-450)
== END | disposition home or self-care (01) ==
LOC: PROCWHC3 09:34
PROVIDERS: ATTEND Internal Medicine
DX: D80.1 Nonfamilial hypogammaglobulinemia (principal)
CPT/HCPCS: 80053; 80197; 83735; 85025; 86644; 86645; 96365; 96366; 96375; 36415; J1200; J1569 ×2

== ENCOUNTER → 2019-07-11 | Outpatient (CLI) | payer MEDICARE, OTHER ==
[~2019-07-11] MED LIST changes: -ACETAMINOPHEN TAB 325 MG TAB PO NR; +ACETAMINOPHEN TAB 325 MG TAB PO ONE; +DEXTROSE 5% IN WATER 250 ML IV NR; -IMMUNE GLOBULIN (GAMMAGARD) 10 GM in EMPTY BAG 1 BAG IV NR; +IMMUNE GLOBULIN (GAMMAGARD) 10 GM in EMPTY BAG 1 BAG IV ONE; -IMMUNE GLOBULIN (GAMMAGARD) 20 GM in EMPTY BAG 1 BAG IV NR; +IMMUNE GLOBULIN (GAMMAGARD) 20 GM in EMPTY BAG 1 BAG IV ONE; -diphenhydrAMINE 50 MG/ML 1 ML VIAL IVP NR; +diphenhydrAMINE 50 MG/ML 1 ML VIAL IVP ONE
[2019-07-11 09:06] VITALS: TEMP 97.7
[2019-07-11 10:15] LABS: Basophils # (A) 0.1 k/uL (0-0.2); Basophils % (A) 3 %; Eosinophils # (A) 0.3 k/uL (0-0.7); Eosinophils % (A) 4 %; HCT 34.8 % (39.0-53.0); Lymphocytes # (A) 0.7 k/uL (1.0-4.8); Lymphocytes % (A) 12 %; MCHC 31.7 g/dL (31.0-37.0); MCV 101.1 fL (80.0-100.0); Macrocytosis Slight; Monocytes # (A) 0.4 k/uL (0-1.0); Monocytes % (A) 7 %; Neutrophils # (A) 4.1 k/uL (1.3-7.7); Neutrophils % (A) 72 %; RBC 3.44 m/uL (4.30-5.90); RDW 15.2 % (11.5-15.5); WBC 5.7 k/uL (3.8-10.6)
[2019-07-11 10:18] VITALS: PULSE 56; RESP 16
[2019-07-11 10:20] LABS: Platelet Count 87 k/uL (150-450)
[2019-07-11 10:25] LABS: Albumin 4.1 g/dL (3.5-5.0); Calcium 8.8 mg/dL (8.4-10.2); Magnesium 1.8 mg/dL (1.6-2.3); Potassium 4.4 mmol/L (3.5-5.1); Total Bilirubin 0.7 mg/dL (0.2-1.3); Total Protein 7.1 g/dL (6.3-8.2)
[2019-07-11 10:34] VITALS: BP 137/66
[2019-07-12 11:50] LABS: Tacrolimus (FK506) 5.8 ng/mL (5.0-20.0)
[2019-07-12 15:52] LABS: CMV DNA Qualitative Not detected (Not detected); CMV DNA, Quantitative <50 IU/mL (<50); LOG CMV Copies/mL <126 Copies/mL (<126); Log Cytomegalovirus <1.70 (<1.70)
== END | disposition home or self-care (01) ==
LOC: PROCWHC3 08:58
PROVIDERS: ATTEND Internal Medicine
DX: D80.1 Nonfamilial hypogammaglobulinemia (principal); Z48.298 Encounter for aftercare following other organ transplant; Z94.2 Lung transplant status
CPT/HCPCS: 80053; 80197; 83735; 85025; 87497; 96365; 96366; 96375; 36415; J1200; J1569 ×2

== ENCOUNTER 2019-08-16 11:29 | Inpatient (IN) | payer MEDICARE, OTHER ==
[2019-08-16] MEDS ORDERED: methylPREDNISolone SOD SUCCI 125 MG/2 ML VIAL IV STA (11:57)
[2019-08-16] MEDS ORDERED: IPRATROPIUM-ALBUTEROL 3 ML NEB INHALATION STA (11:57)
--- NOTE | 2019-08-16 12:00 | ED ---
General Adult HPI - General Chief complaint: Shortness of Breath Stated complaint: Dyspnea Time Seen by Provider: 08/16/19 11:47 Source: patient, family, RN notes reviewed Mode of arrival: wheelchair Limitations: no limitations - History of Present Illness Initial comments: Patient is a pleasant 68-year-old male presenting to the emergency Department wi complaints of difficulty breathing. Onset of symptoms was 3 days ago. Patient does have cough with multicolored. Patient questions if he may have coughed up blood at one point. Patient has had fevers up to 99.9. No nasal congestion or sore throat. Patient does have history of lung transplant 10 years ago associated with COPD. No leg pain or leg swelling. - Related Data Home Medications Medication Instructions Recorded Confirmed Alendronate Sodium [Fosamax] 70 mg PO WE 11/06/13 08/11/19 Ergocalciferol (Vitamin D2) 50,000 units PO Q15D 11/06/13 08/11/19 [Drisdol] Fludrocortisone [Florinef] 0.1 mg PO QAM 11/06/13 08/11/19 Metoprolol Succinate (ER) [Toprol 100 mg PO QAM 11/06/13 08/11/19 XL] Sulfamethox-Tmp 800-160Mg [Bactrim 800 mg PO MOWEFR 11/06/13 08/11/19 DS 800-160 mg] Tacrolimus [Prograf] 2.5 mg PO BID 11/06/13 08/11/19 Sodium Bicarbonate Tab 1,300 mg PO BID 11/07/13 08/11/19 Insulin Detemir (Levemir) [Levemir] 50 unit SQ QAM 01/02/14 08/11/19 Azithromycin [Zithromax] 250 mg PO MOWEFR 11/05/15 08/11/19 HYDROcodone/APAP 5-325MG [Carteret 3 tab PO TID 07/23/16 08/11/19 5-325] Multivitamins, Thera [Multivitamin] 1 tab PO DAILY 07/23/16 08/11/19 Ferrous Sulfate [Feosol] 325 mg PO BID 09/29/16 08/11/19 Allopurinol [Zyloprim] 100 mg PO DAILY 05/06/17 08/11/19 Calcium Carbonate 1500mg 1,500 mg PO MOFR 05/06/17 08/11/19 Metoclopramide [Reglan] 10 mg PO QAM 05/06/17 08/11/19 amLODIPine [Norvasc] 10 mg PO DAILY 05/06/17 08/11/19 Omeprazole [PriLOSEC] 40 mg PO DAILY 03/02/18 08/11/19 Sertraline [Zoloft] 50 mg PO DAILY 03/02/18 08/11/19 Triamcinolone Acetonide 1 applic TOPICAL BID 03/02/18 08/11/19 [Triamcinolone Acetonide 0.025%] predniSONE 5 mg PO DAILY 03/02/18 08/11/19 Lisinopril-Hctz 10-12.5 mg 1 tab PO DAILY 07/11/19 08/11/19 [Zestoretic 10-12.5] Allergies Allergy/AdvReac Type Severity Reaction Status Date / Time clarithromycin [From Biaxin] Allergy instructed Verified 08/16/19 11:42 not to take r/t lung transplant ibuprofen [From Motrin] Allergy Abdominal Verified 08/16/19 11:42 Pain Review of Systems ROS Statement: Those systems with pertinent positive or pertinent negative responses have been documented in the HPI. ROS Other: All systems not noted in ROS Statement are negative. Constitutional: Reports: fever, chills Eyes: Denies: eye pain ENT: Denies: ear pain Respiratory: Reports: cough, dyspnea Cardiovascular: Denies: chest pain Endocrine: Denies: fatigue Gastrointestinal: Denies: abdominal pain Genitourinary: Denies: dysuria Musculoskeletal: Denies: back pain Skin: Denies: rash Neurological: Denies: weakness Past Medical History Past Medical History: Asthma, COPD, Diabetes Mellitus, GERD/Reflux, Osteoarthritis (OA), Pneumonia, Prostate Disorder, Renal Disease, Respiratory Disorder Additional Past Medical History / Comment(s): having difficulty urinating, daily steroid,ARTHRITIS/BACK PAIN/PULMONARY FIBROSIS/DEGENERATIVE DISC DS/DEPRESSED IMMUNE SYSTEM. FELL ON 03/01/18. History of Any Multi-Drug Resistant Organisms: None Reported Past Surgical History: Heart Catheterization, Hernia Repair Additional Past Surgical History / Comment(s): RT & LT CATARACT REMOVED/COLONOSCOPY/BILATERAL LUNG TRANSPLANT 20082013 HERNIA REPAIR UMBILICAL, LEFT INGUINAL AND FEMEROL. TURP - 2015 Past Anesthesia/Blood Transfusion Reactions: No Reported Reaction Past Psychological History: Anxiety, Depression Smoking Status: Former smoker Past Alcohol Use History: None Reported Past Drug Use History: None Reported - Past Family History Mother Family Medical History: No Reported History General Exam Limitations: no limitations General appearance: alert, in no apparent distress Head exam: Present: normocephalic Eye exam: Present: normal appearance, PERRL ENT exam: Present: normal oropharynx Neck exam: Present: normal inspection Respiratory exam: Present: rhonchi, decreased breath sounds Cardiovascular Exam: Present: regular rate, normal rhythm GI/Abdominal exam: Present: soft. Absent: tenderness Extremities exam: Present: normal inspection. Absent: pedal edema, calf tenderness Neurological exam: Present: alert Psychiatric exam: Present: normal affect, normal mood Skin exam: Present: normal color Course Vital Signs 08/16/19 08/16/19 08/16/19 11:40 11:53 12:12 Temperature 98.3 F Pulse Rate 77 73 Respiratory 26 H 20 Rate Blood Pressure 115/61 O2 Sat by Pulse 94 L Oximetry 08/16/19 08/16/19 12:22 12:28 Temperature Pulse Rate 74 74 Respiratory 22 Rate Blood Pressure 120/69 O2 Sat by Pulse 97 Oximetry - Reevaluation(s) Reevaluation #1: 08/16/19 12:28 Case was discussed with Dr. Syed who will evaluate patient EKG Findings - EKG Comments: EKG Findings:: Normal sinus rhythm 74. MN 164. QRS 168. QT 4:30. QTC 46. Left axis. Right bundle branch block. Left anterior fascicular block. LVH criteria. No acute ST change. Medical Decision Making - Medical Decision Making Patient reevaluated and resting comfortably in bed. Patient and family updated on results and plan. Case discussed in detail with Dr. Gavin, who will admit for Dr. Alaniz, sonia. Dr. Syed was also notified. - Lab Data Result diagrams: 08/16/19 12:25 Lab Results 08/16/19 08/16/19 08/16/19 Range/Units 12:25 12:25 12:25 PT (9.0-12.0) sec INR (<1.2) APTT (22.0-30.0) sec Sodium 131 L (137-145) mmol/L Potassium 4.0 (3.5-5.1) mmol/L Chloride 101 (98-107) mmol/L Carbon Dioxide 19 L (22-30) mmol/L Anion Gap 11 mmol/L BUN 53 H (9-20) mg/dL Creatinine 2.10 H (0.66-1.25) mg/dL Est GFR (CKD-EPI)AfAm 36 (>60 ml/min/1.73 sqM) Est GFR (CKD-EPI)NonAf 31 (>60 ml/min/1.73 sqM) Glucose 155 H (74-99) mg/dL Plasma Lactic Acid Jaden 1.3 (0.7-2.0) mmol/L Calcium 8.7 (8.4-10.2) mg/dL Total Bilirubin 1.4 H (0.2-1.3) mg/dL AST 59 (17-59) U/L ALT 73 H (4-49) U/L Alkaline Phosphatase 104 (38-126) U/L Troponin I (0.000-0.034) ng/mL Total Protein 6.6 (6.3-8.2) g/dL Albumin 3.5 (3.5-5.0) g/dL Influenza Type A RNA Not Detected (Not Detectd) Influenza Type B (PCR) Not Detected (Not Detectd) 08/16/19 08/16/19 Range/Units 12:25 12:25 PT 11.7 (9.0-12.0) sec INR 1.1 (<1.2) APTT 27.3 (22.0-30.0) sec Sodium (137-145) mmol/L Potassium (3.5-5.1) mmol/L Chloride (98-107) mmol/L Carbon Dioxide (22-30) mmol/L Anion Gap mmol/L BUN (9-20) mg/dL Creatinine (0.66-1.25) mg/dL Est GFR (CKD-EPI)AfAm (>60 ml/min/1.73 sqM) Est GFR (CKD-EPI)NonAf (>60 ml/min/1.73 sqM) Glucose (74-99) mg/dL Plasma Lactic Acid Jaden (0.7-2.0) mmol/L Calcium (8.4-10.2) mg/dL Total Bilirubin (0.2-1.3) mg/dL AST (17-59) U/L ALT (4-49) U/L Alkaline Phosphatase (38-126) U/L Troponin I 0.015 (0.000-0.034) ng/mL Total Protein (6.3-8.2) g/dL Albumin (3.5-5.0) g/dL Influenza Type A RNA (Not Detectd) Influenza Type B (PCR) (Not Detectd) - Radiology Data Radiology results: image reviewed (Chest x-ray shows postsurgical changes. Opacities left midlung could represent pneumonia or neoplasm. Some interstitial changes.) Disposition Clinical Impression: Pneumonia, Lung transplant recipient Disposition: ADMITTED IP TO THIS HOSP Condition: Serious Is patient prescribed a controlled substance at d/c from ED?: No Referrals: Louie Alaniz MD [Primary Care Provider] - 1-2 days
--- NOTE | 2019-08-16 12:17 | XR ---
EXAMINATION TYPE: XR chest 2V DATE OF EXAM: 08/16/2019 COMPARISON: None HISTORY: 68-year-old male difficulty breathing TECHNIQUE: AP and lateral views FINDINGS: There seems to be some surgical clips in the bilateral hilar regions. Clamshell wire fixation along t he lower sternum. Masslike nodular opacities left midlung. Some additional patchy interstitial densit ies periphery of the right lung. Heart mildly enlarged. No pleural effusion. IMPRESSION: 1. Post surgical changes, suspect prior lung transplantation. 2. Nodular opacities at the left midlung could represent pneumonia or neoplasm. No priors available f or comparison purposes. 3. Some interstitial changes in the periphery of the right lung of unknown chronicity.
[2019-08-16] MEDS ORDERED: PIPERACILLIN-TAZOBACTAM 3.375 GM in SODIUM CHLORIDE 0.9% 100 ML IVPB STA (12:25)
[2019-08-16 12:47] LABS: Albumin 3.5 g/dL (3.5-5.0); Calcium 8.7 mg/dL (8.4-10.2); Total Bilirubin 1.4 mg/dL (0.2-1.3); Total Protein 6.6 g/dL (6.3-8.2)
[2019-08-16 12:49] LABS: INR 1.1 (<1.2); Partial Thromboplastin Time 27.3 sec (22.0-30.0); Prothrombin Time 11.7 sec (9.0-12.0)
[2019-08-16] MEDS ORDERED: LEVOFLOXACIN 750MG-D5W PMX 750 MG in DEXTROSE/WATER 1 150ML.BAG IVPB SCH (13:00)
[2019-08-16] MEDS ORDERED: IPRATROPIUM-ALBUTEROL 3 ML NEB INHALATION PRN (13:33)
[2019-08-16] MEDS ORDERED: PNEUMONIA PROTOCOL UTILIZED 1 EACH MISC PO PRN (13:33)
[2019-08-16 13:44] LABS: Basophils % (A) 0 %; Eosinophils # (A) 0.1 k/uL (0-0.7); Eosinophils % (A) 1 %; HCT 34.3 % (39.0-53.0); HGB 11.1 gm/dL (13.0-17.5); Lymphocytes # (A) 0.3 k/uL (1.0-4.8); Lymphocytes % (A) 3 %; MCH 32.1 pg (25.0-35.0); MCHC 32.2 g/dL (31.0-37.0); MCV 99.7 fL (80.0-100.0); Macrocytosis Slight; Mean Platelet Volume 11.2; Monocytes # (A) 0.5 k/uL (0-1.0); Monocytes % (A) 5 %; Neutrophils # (A) 8.9 k/uL (1.3-7.7); Neutrophils % (A) 90 %; Platelet Count 63 k/uL (150-450); RBC 3.45 m/uL (4.30-5.90); RDW 15.5 % (11.5-15.5); WBC 9.9 k/uL (3.8-10.6)
[2019-08-16 14:20] LABS: Large Platelets Present
[2019-08-16 14:21] LABS: Poikilocytosis (M) Present
[2019-08-16] MEDS ORDERED: HYDROcodone/APAP 5-325MG 1 EACH TAB PO STA (14:27)
[2019-08-16] MEDS ORDERED: SENNOSIDES 8.6 MG TAB PO PRN (15:35)
[2019-08-16] MEDS ORDERED: VANCOMYCIN IV PER PHARMACY 1 EACH MISC MISCELLANE PRN (15:46)
--- NOTE | 2019-08-16 15:55 | P.CNPUL ---
History of Present Illness Consult date: 08/16/19 Reason for consult: pneumonia History of present illness: This is a 68-year-old male patient was very well-known to me. I stool see him at [facility] lung transplant division as the patient suffered from COPD and pulmonary fibrosis. He ultimately got his lung transplantation in 2008. The patient underwent bilateral lung transportation. His course was extremely uneventful. The patient did not require oxygen following the transp lant. He ended up taking a combination of Prograf and prednisone and his been doing well on Bactrim prophylaxis. He was diagnosed having hypogammaglobulinemia and has been receiving IVIG replacement on a monthly basis through our hospital. The patient became acutely sick. Around [address] arted having generalized weakness and fatigue and tiredness and fever and chills and cough and congestion and some limited hemoptysis. He comes into the hospital and the chest x-ray shows extensive airspace disease/consolidation involving the left lung. There is a left midlung opacity which is affecting and pneumonia. The patient is having some soreness and some pleurisy within the involved area. His white cell count was at 9.9. His hemodynamics have remained stable. No hypotension. No significant tachycardia. He is in the emergency department with a lactic acid level of 1.3. The patient was given a dose of IV Zosyn. He is kidney function is abnormal with a creatinine of 2.0. However the patient has chronic kidney disease. The patient has not had any recurrent pneumonias over the years. No previous history of MRSA infection. No history of any PCP infection. No history of any acute or chronic rejection based on my knowledge. He has received all of his care at [facility] especially over the past 10 years following his transportation. No cardiac disease. No le g swelling. He does have a bruise along the left chest area which probably evolved from either coughing or a minor trauma. Review of Systems Constitutional: Reports fatigue, Reports fever, Reports poor appetite, Reports weakness Eyes: denies as per HPI, denies blurred vision, denies bulging eye, denies decreased vision, denies diplopia, denies discharge, denies dry eye, denies irritation, denies itching, denies pain, denies photophobia, denies loss of peripheral vision, denies loss of vision, denies tunnel vision/blind spots Ears: deny: decreased hearing, ear discharge, earache, tinnitus Ears, nose, mouth and throat: Reports as per HPI Breasts: absent: as per HPI, gynecomastia Cardiovascular: Reports chest pain, Reports decreased exercise tolerance, Reports dyspnea on exertion, Reports shortness of breath Respiratory: Reports cough, Reports dyspnea, Reports hemoptysis, Reports pain on inspiration Gastrointestinal: Reports as per HPI, Reports diarrhea, Reports nausea Genitourinary: Reports as per HPI Musculoskeletal: Reports as per HPI Musculoskeletal: absent: ankle pain, ankle stiffness, ankle swelling Integumentary: Reports as per HPI Neurological: Reports as per HPI, Reports weakness Psychiatric: Reports as per HPI Endocrine: Reports as per HPI Hematologic/Lymphatic: Reports as per HPI Allergic/Immunologic: Reports as per HPI Past Medical History Past Medical History: Asthma, COPD, Diabetes Mellitus, GERD/Reflux, Osteoarthritis (OA), Pneumonia, Prostate Disorder, Renal Disease, Respiratory Di sorder Additional Past Medical History / Comment(s): History of COPD and pulmonary fibrosis. The patient underwent bilateral lung transplantation and 2008. He has diabetes, chronic arthritis with back pain, degenerative disc disease, chronic stage III kidney disease, chronic hypogammaglobulinemia and the patient is receiving IVIG treatment on outpatient basis and the last treatment was in June 2019 History of Any Multi-Drug Resistant Organisms: None Reported Past Surgical History: Heart Catheterization, Hernia Repair Additional Past Surgical History / Comment(s): RT & LT CATARACT REMOVED /COLONOSCOPY/BILATERAL LUNG TRANSPLANT 20082013 HERNIA REPAIR UMBILICAL, LEFT INGUINAL AND FEMEROL. TURP - 2015 Past Anesthesia/Blood Transfusion Reactions: No Reported Reaction Past Psychological History: Anxiety, Depression Smoking Status: Former smoker Past Alcohol Use History: None Reported Past Drug Use History: None Reported - Past Family History Mother Family Medical History: No Reported History Medications and Allergies Home Medications Medication Instructions Recorded Confirmed Type Alendronate Sodium [Fosamax] 70 mg PO WE 11/06/13 08/16/19 History Ergocalciferol (Vitamin D2) 50,000 units PO Q15D 11/06/13 08/16/19 History [Drisdol] Fludrocortisone [Florinef] 0.1 mg PO QAM 11/06/13 08/16/19 History Metoprolol Succinate (ER) [Toprol 100 mg PO QAM 11/06/13 08/16/19 History XL] Sulfamethox-Tmp 800-160Mg [Bactrim 800 mg PO MOWEFR 11/06/13 08/16/19 History DS 800-160 mg] Tacrolimus [Prograf] 2 mg PO BID 11/06/13 08/16/19 History Sodium Bicarbonate Tab 1,300 mg PO BID 11/07/13 08/16/19 History Insulin Detemir (Levemir) [Levemir] 50 unit SQ QAM 01/02/14 08/16/19 History Azithromycin [Zithromax] 250 mg PO MOWEFR 11/05/15 08/16/19 History HYDROcodone/APAP 5-325MG [[place] 3 tab PO TID 07/23/16 08/16/19 History 5-325] Multivitamins, Thera [Multivitamin] 1 tab PO DAILY 07/23/16 08/16/19 History Ferrous Sulfate [Feosol] 325 mg PO BID 09/29/16 08/16/19 History Allopurinol [Zyloprim] 100 mg PO DAILY 05/06/17 08/16/19 History Metoclopramide [Reglan] 10 mg PO QAM 05/06/17 08/16/19 History amLODIPine [Norvasc] 10 mg PO DAILY 05/06/17 08/16/19 History Omeprazole [PriLOSEC] 40 mg PO DAILY 03/02/18 08/16/19 History Sertraline [Zoloft] 50 mg PO DAILY 03/02/18 08/16/19 History predniSONE 5 mg PO DAILY 03/02/18 08/16/19 History Lisinopril-Hctz 10-12.5 mg 1 tab PO DAILY 07/11/19 08/16/19 History [Zestoretic 10-12.5] Calcium Carbonate [Calcium] 600 mg PO MOFR 08/16/19 08/16/19 History Sennosides [Senna] 8.6 mg PO DAILY PRN 08/16/19 08/16/19 History Tacrolimus [Prograf] 0.5 mg PO BID 08/16/19 08/16/19 History Tamsulosin HCl [Flomax] 0.4 mg PO DAILY 08/16/19 08/16/19 History Allergies Allergy/AdvReac Type Severity Reaction Status Date / Time clarithromycin [From Biaxin] Allergy instructed Verified 02/19/20 11:42 not to take r/t lung transplant ibuprofen [From Motrin] Allergy Abdominal Verified 08/16/19 11:42 Pain Physical Exam Vitals: Vital Signs Temp Pulse Resp BP Pulse Ox 08/16/19 14:23 79 18 119/64 96 08/16/19 12:28 74 22 120/69 97 08/16/19 12:22 74 08/16/19 12:12 73 08/16/19 11:53 20 08/16/19 11:40 98.3 F 77 26 H 115/61 94 L Intake and Output 08/16/19 08/16/19 08/16/19 06:59 14:59 22:59 Other: Weight 67.268 kg Gen. appearance the patient is a mild degree of respiratory distress on 2 L about 2 by nasal cannula Head exam was generally normal. There was no scleral icterus or corneal arcus. Mucous membranes were moist. Neck was supple and without jugular venous distension, thyromegaly, or carotid bruits. Carotids were easily palpable bilaterally. There was no adenopathy. Examination of the lungs shows a clamshell incision over the anterior chest related to transplantation. The patient has crackles in the left upper lobe in the left midlung area anteriorly and posteriorly. Cardiac exam revealed the PMI to be normally situated and sized. The rhythm was regular and no extrasystoles were noted during several minutes of auscultation. The first and second heart sounds were normal and physiologic splitting of the second heart sound was noted. There were no murmurs, rubs, clicks, or gallops. Abdominal exam revealed normal bowel sounds. The abdomen was soft, non-tender, and without masses, organomegaly, or appreciable enlargement of the abdominal aorta. The patient has an abdominal wall hernia on examination Examination of the extremities revealed easily palpable radial, femoral and pedal pulses. There was no cyanosis, clubbing or edema. Examination of the skin revealed no evidence of significant rashes, suspicious appearing nevi or other concerning lesions. Results - Laboratory Findings CBC and BMP: 08/16/19 12:25 08/16/19 12:25 PT/INR, D-dimer PT 11.7 sec (9.0-12.0) 08/16/19 12:25 INR 1.1 (<1.2) 08/16/19 12:25 Abnormal lab findings: Abnormal Labs 08/16/19 08/16/19 12:25 12:25 RBC 3.45 L Hgb 11.1 L Hct 34.3 L Plt Count 63 L Neutrophils # 8.9 H Lymphocytes # 0.3 L Sodium 131 L Carbon Dioxide 19 L BUN 53 H Creatinine 2.10 H Glucose 155 H Total Bilirubin 1.4 H ALT 73 H Assessment and Plan Plan: 1 acute left lung pneumonia involving the left upper lobe and lingular segment and the patient has dense consolidation associated with development of an acute hypoxic respiratory failure, acute shortness of breath and some limited hemoptysis. He is having also some pleuritic chest pain along the left side of the chest. The patient was hospitalized for the same. He has been receiving Bactrim prophylaxis as an outpatient basis. He was also receiving IVIG for chr onic hyperglobulinemia. 2 Acute hypoxic respiratory failure secondary to above 3 acute hemoptysis secondary to above 4 acute shortness of breath secondary to above 5 bilateral lung transplantation. The patient estimates that the patient 2009 for COPD/fibrosis 6 chronic stage III kidney disease 7 diabetes mellitus2 8 chronic back pain Plan Sputum Gram stain and culture Blood culture IV fluids with normal state rate of 130 mL an hour Check a Legionella urine antigen Serum IgG levels antibiotic coverage including a combination of Levaquin and Zosyn and vancomycin Oxygen therapy at 2 L per minute nasal cannula Admit the patient to the hospital for further treatment. Put the Bactrim on hold for now
[2019-08-16] MEDS ORDERED: HYDROcodone/APAP 5-325MG 1 EACH TAB PO SCH (16:00)
[2019-08-16] MEDS ORDERED: LEVOFLOXACIN 500MG-D5W PMX 500 MG in DEXTROSE/WATER 1 100ML.BAG IVPB SCH (16:00)
[2019-08-16] MEDS: IPRATROPIUM-ALBUTEROL 3 ML NEB INHALATION SCH ×2 (16:19→19:20)
[2019-08-16] MEDS: SODIUM CHLORIDE 0.9% 1,000 ML IV SCH (17:07)
[2019-08-16] MEDS: VANCOMYCIN 1,250 MG in SODIUM CHLORIDE 0.9% 250 ML IVPB SCH (17:20)
[2019-08-16] MEDS: HYDROcodone/APAP 5-325MG 1 EACH TAB PO SCH ×2 (17:21→23:02)
[2019-08-16] MEDS: PIPERACILLIN-TAZOBACTAM 3.375 GM in SODIUM CHLORIDE 0.9% 100 ML IVPB SCH (20:33)
[2019-08-16] MEDS: SODIUM BICARBONATE TAB 650 MG TAB PO SCH (20:33)
[2019-08-16] MEDS: FERROUS SULFATE 325 MG TAB PO SCH (20:33)
[2019-08-16] MEDS: TACROLIMUS 1 MG CAP PO SCH (21:11)
[2019-08-16] MEDS: TACROLIMUS 0.5 MG CAP PO SCH (21:11)
[2019-08-17] MEDS: PIPERACILLIN-TAZOBACTAM 3.375 GM in SODIUM CHLORIDE 0.9% 100 ML IVPB SCH ×3 (04:24→21:51)
[2019-08-17] MEDS: IPRATROPIUM-ALBUTEROL 3 ML NEB INHALATION SCH ×4 (07:29→20:21)
[2019-08-17] MEDS: SODIUM CHLORIDE 0.9% 1,000 ML IV SCH ×3 (08:08→13:23)
[2019-08-17] MEDS: INSULIN DETEMIR (LEVEMIR) 100 UNIT/ML SYR SQ SCH (08:10)
[2019-08-17] MEDS: SERTRALINE 50 MG TAB PO SCH (08:25)
[2019-08-17] MEDS: amLODIPine 10 MG TAB PO SCH (08:25)
[2019-08-17] MEDS: TAMSULOSIN 0.4 MG CAP.ER.24H PO SCH (08:25)
[2019-08-17] MEDS: PANTOPRAZOLE 40 MG TABLET PO SCH (08:25)
[2019-08-17] MEDS: TACROLIMUS 0.5 MG CAP PO SCH ×2 (08:25→20:29)
[2019-08-17] MEDS: HYDROcodone/APAP 5-325MG 1 EACH TAB PO SCH ×3 (08:26→21:51)
[2019-08-17] MEDS: FLUDROCORTISONE 0.1 MG TAB PO SCH (08:26)
[2019-08-17] MEDS: FERROUS SULFATE 325 MG TAB PO SCH ×2 (08:26→20:28)
[2019-08-17] MEDS: SODIUM BICARBONATE TAB 650 MG TAB PO SCH ×2 (08:27→20:31)
[2019-08-17] MEDS: TACROLIMUS 1 MG CAP PO SCH ×2 (08:27→20:29)
[2019-08-17] MEDS: MULTIVITAMINS, THERA 1 EACH TAB PO SCH (08:27)
[2019-08-17] MEDS: ALLOPURINOL 100 MG TAB PO SCH (08:27)
[2019-08-17] MEDS: METOCLOPRAMIDE 10 MG TAB PO SCH (08:27)
--- NOTE | 2019-08-17 08:52 | XR ---
EXAMINATION TYPE: XR chest 2V DATE OF EXAM: 08/17/2019 COMPARISON: 08/16/2019 INDICATION: Pneumonia TECHNIQUE: Frontal and lateral views of the chest are obtained. FINDINGS: The heart size is normal. The pulmonary vasculature is normal. There is a left perihilar infiltrate. This has improved from prior study. Some thickening is along th e right pleural margin. Fluid may be present. IMPRESSION: 1. Improving left perihilar infiltrate which can be compatible with pneumonia in the proper clinical setting. 2. Small amount of fluid or pleural thickening along the right lateral margin.
[2019-08-17] MEDS ORDERED: predniSONE 5 MG TAB PO SCH (09:00)
[2019-08-17] MEDS: METOPROLOL SUCCINATE (ER) 100 MG TAB.ER.24H PO SCH (09:01)
--- NOTE | 2019-08-17 12:55 | P.PN ---
Subjective Progress Note Date: 08/17/19 On today's evaluation of 08/17/2019, I'm seeing Mr. Walton for a follow-up in the medical floor. He is looking better. Less short of breath. His cough is still present and he was unable to give me a sputum sample for now. No fever. No chills. He is a lung transplant recipient and he has received bilateral lung transportation and is currently on triple antibiotic coverage using Zosyn and Levaquin and vancomycin. No follow-up labs from today. Nevertheless, the chest x-ray showing improvement in the left lung consolidation/airspace disease. He is tolerating his diet. No nausea. No vomiting. No diarrhea. No other complaints otherwise. The serum IgG level was 1250. Influenza screen was negative. Cultures of been all negative. Objective - Vital Signs Vital signs: Vital Signs Temp 97.6 F 08/17/19 05:00 Pulse 84 08/17/19 11:36 Resp 20 08/17/19 05:00 BP 147/80 08/17/19 05:00 Pulse Ox 98 08/17/19 07:29 Intake & Output 08/16/19 08/17/19 08/17/19 18:59 06:59 18:59 Intake Total 845 Output Total 300 Balance 545 Weight 67.268 kg Intake: Intake, IV Titration 255 Amount Sodium Chloride 0.9% 1, 130 000 ml @ 130 mls/hr IV . [id number] [facility] Rx#:[id number] Vancomycin 1,250 mg In 125 Sodium Chloride 0.9% 250 ml @ 125 mls/hr IVPB Q24HR@1200 [facility] Rx#: [id number] Oral 590 Output: Urine 300 Other: Voiding Method Toilet # Voids 1 - Exam Gen. appearance the patient is a mild degree of respiratory distress on 2 L about 2 by nasal cannula Head exam was generally normal. There was no scleral icterus or corneal arcus. Mucous membranes were moist. Neck was supple and without jugular venous distension, thyromegaly, or carotid bruits. Carotids were easily palpable bilaterally. There was no adenopathy. Examination of the lungs shows a clamshell incision over the anterior chest related to transplantation. The patient has crackles in the left upper lobe in the left midlung area anteriorly and posteriorly. Cardiac exam revealed the PMI to be normally situated and sized. The rhythm was regular and no extrasystoles were noted during several minutes of auscultation. The first and second heart sounds were normal and physiologic splitting of the second heart sound was noted. There were no murmurs, rubs, clicks, or gallops. Abdominal exam revealed normal bowel sounds. The abdomen was soft, non-tender, and without masses, organomegaly, or appreciable enlargement of the abdominal aorta. The patient has an abdominal wall hernia on examination Examination of the extremities revealed easily palpable radial, femoral and pedal pulses. There was no cyanosis, clubbing or edema. Examination of the skin revealed no evidence of significant rashes, suspicious appearing nevi or other concerning lesions. - Labs CBC & Chem 7: 08/16/19 12:25 08/16/19 12:25 Labs: Abnormal Lab Results - Last 24 Hours (Table) 08/16/19 Range/Units 12:25 RBC 3.45 L (4.30-5.90) m/uL Hgb 11.1 L (13.0-17.5) gm/dL Hct 34.3 L (39.0-53.0) % Plt Count 63 L (150-450) k/uL Neutrophils # 8.9 H (1.3-7.7) k/uL Lymphocytes # 0.3 L (1.0-4.8) k/uL Assessment and Plan Plan: 1 acute left lung pneumonia involving the left upper lobe and lingular segment and the patient has dense consolidation associated with development of an acute hypoxic respiratory failure, acute shortness of breath and some limited hemoptysis. He is having also some pleuritic chest pain along the left side of the chest. The patient was hospitalized for the same. He has been receiving Bactrim prophylaxis as an outpatient basis. He was also receiving IVIG for chronic hyperglobulinemia. The patient is clinically improving. There is i mprovement in the left lung consolidation on today's chest x-ray. 2 Acute hypoxic respiratory failure secondary to above 3 acute hemoptysis secondary to above 4 acute shortness of breath secondary to above 5 bilateral lung transplantation. The patient estimates that the patient 2009 for COPD/fibrosis 6 chronic stage III kidney disease 7 diabetes mellitus2 8 chronic back pain Plan Sputum Gram stain and culture will be collected today. I preferred the patient gives me a sputum sample for microbial analysis. Blood culture is negative thus far IV fluids to be kept down to 50 mL's an hour Awaiting Legionella urine antigen Normal IgG levels antibiotic coverage including a combination of Levaquin and Zosyn and vancomycin Oxygen therapy at 2 L per minute nasal cannula Chest x-ray is showing improvement in the left lung consolidation. The patient was reassured about that. Admit the patient to the hospital for further treatment. Awaiting the follow-up labs from today. Follow-up chest x-ray for tomorrow with PA and lateral views. We'll continue to follow.
[2019-08-17] MEDS: VANCOMYCIN 1,250 MG in SODIUM CHLORIDE 0.9% 250 ML IVPB SCH (13:17)
[2019-08-17] MEDS: INSULIN ASPART (NovoLOG) 100 UNIT/ML VIAL SQ SCH ×3 (13:17→20:28)
[2019-08-17 13:46] LABS: Calcium 8.2 mg/dL (8.4-10.2); Potassium 3.8 mmol/L (3.5-5.1)
--- NOTE | 2019-08-17 15:01 | P.HPIM ---
History of Present Illness H&P Date: 08/17/19 Chief Complaint: Difficulty breathing. This is a 68-year-old male patient of Dr. Louie Alaniz with past medical history of bilateral lung transplant in 2008 at [facility] with underlying COPD, pulmonary fibrosis, hypogammaglobulinemia on IVIG replacement, chronic kidney disease stage III, diabetes mellitus type 2, osteoarthritis of spine with degenerative disc disease, gastroesophageal reflux disease, hypertension. Patient gives history of increasing shortness of breath for the past 3 days with cough and sputum production. Mild blood noted in his sputum. Patient states he has also had a loss of appetite and not eat well for the past 3 days. Patient came into [facility] emergency center for evaluation. Pulse ox was 94%,, vital signs stable. Sodium 131, CO2 19, BUN 53 and creatinine 2.10, blood sugar 155. Lactic acid 1.3, influenza testing negative. Total bilirubin 1.4, AST 59, ALT 73 and alkaline phosphatase 104. INR 1.1. Troponin 0.015. ProBNP 6250. IgG 1250. Chest x-ray shows postsurgical changes with prior lung transplantation. Nodular opacities at the left mid lung could represent pneumonia or neoplasm. Interstitial changes in the periphery of the right lung of unknown chronicity. Repeat chest x-ray this morning reveals improving left perihilar infiltrate which can be compatible with pneumonia. Small amount of fluid or pleural thickening along the right lateral margin. Patient fitted to the [facility] floor and consult with Dr. Syed. Review of Systems Constitutional: Reports anorexia, Reports chronic pain, Reports fatigue, Reports lethargy, Reports malaise, Reports poor appetite, Reports weight loss, Denies fever Eyes: denies blurred vision, denies pain Ears, nose, mouth and throat: Denies dysphagia, Denies headache, Denies nasal congestion, Denies nasal discharge, Denies sore throat, Denies vertigo Cardiovascular: Reports decreased exercise tolerance, Reports dyspnea on exertion, Reports edema, Reports shortness of breath, Denies chest pain, Denies leg edema, Denies lightheadedness, Denies syncope Respiratory: Reports cough, Reports cough with sputum, Reports dyspnea, Reports hemoptysis, Reports respiratory infections, Reports wheezing, Denies excessive sputum Gastrointestinal: Reports loss of appetite, Denies abdominal pain, Denies diarrhea, Denies nausea, Denies vomiting Genitourinary: Denies dysuria, Denies urinary frequency, Denies urinary retention Musculoskeletal: Reports low back pain, Reports muscle weakness, Denies frequent falls, Denies myalgias Integumentary: Denies pruritus, Denies rash, Denies wounds Neurological: Denies change in mentation, Denies change in speech, Denies numbness, Denies weakness Psychiatric: Denies anxiety, Denies depression Endocrine: Denies fatigue, Denies weight change Past Medical History Past Medical History: COPD, Diabetes Mellitus, GERD/Reflux, Osteoarthritis (OA), Pneumonia, Prostate Disorder, Renal Disease, Respiratory Disorder Additional Past Medical History / Comment(s): History of COPD and pulmonary fibrosis. The patient underwent bilateral lung transplantation and 2008. He has diabetes, chronic arthritis with back pain, degenerative disc disease, chronic stage III kidney disease, chronic hypogammaglobulinemia and the patient is receiving IVIG treatment on outpatient basis and the last treatment was in June 2019 History of Any Multi-Drug Resistant Organisms: None Reported Past Surgical History: Heart Catheterization, Hernia Repair Additional Past Surgical History / Comment(s): RT & LT CATARACT REMOVED/COLONOSCOPY/BILATERAL LUNG TRANSPLANT 20082013 HERNIA REPAIR UMBILICAL, LEFT INGUINAL AND FEMEROL. TURP - 2015 Past Anesthesia/Blood Transfusion Reactions: No Reported Reaction Past Psychological History: Anxiety, Depression Smoking Status: Former smoker Past Alcohol Use History: None Reported Additional Past Alcohol Use History / Comment(s): Patient was a smoker one and half to 2 packs per day starting at the age of 12 and quit at approximately age 43. He denies any marijuana, illicit drug use or alcohol use. He lives with his girlfriend. Patient does not have oxygen at home. Past Drug Use History: None Reported - Past Family History Mother Family Medical History: No Reported History Additional Family Medical History / Comment(s): Mother at age 73 from asthma or COPD. Father Additional Family Medical History / Comment(s): Father at age 68 from asthma. Brother(s) Additional Family Medical History / Comment(s): Patient states he has 6 brothers and 5 sisters and is not sure of their medical history. Some have passed. Patient has one daughter with no major medical problems. Medications and Allergies Home Medications Medication Instructions Recorded Confirmed Type Alendronate Sodium [Fosamax] 70 mg PO WE 11/06/13 08/16/19 History Ergocalciferol (Vitamin D2) 50,000 units PO Q15D 11/06/13 08/16/19 History [Drisdol] Fludrocortisone [Florinef] 0.1 mg PO QAM 11/06/13 08/16/19 History Metoprolol Succinate (ER) [Toprol 100 mg PO QAM 11/06/13 08/16/19 History XL] Sulfamethox-Tmp 800-160Mg [Bactrim 800 mg PO MOWEFR 11/06/13 08/16/19 History DS 800-160 mg] Tacrolimus [Prograf] 2 mg PO BID 11/06/13 08/16/19 History Sodium Bicarbonate Tab 1,300 mg PO BID 11/07/13 08/16/19 History Insulin Detemir (Levemir) [Levemir] 50 unit SQ QAM 01/02/14 08/16/19 History Azithromycin [Zithromax] 250 mg PO MOWEFR 11/05/15 08/16/19 History HYDROcodone/APAP 5-325MG [Pinckard 3 tab PO TID 07/23/16 08/16/19 History 5-325] Multivitamins, Thera [Multivitamin] 1 tab PO DAILY 07/23/16 08/16/19 History Ferrous Sulfate [Feosol] 325 mg PO BID 09/29/16 08/16/19 History Allopurinol [Zyloprim] 100 mg PO DAILY 05/06/17 08/16/19 History Metoclopramide [Reglan] 10 mg PO QAM 05/06/17 08/16/19 History amLODIPine [Norvasc] 10 mg PO DAILY 05/06/17 08/16/19 History Omeprazole [PriLOSEC] 40 mg PO DAILY 03/02/18 08/16/19 History Sertraline [Zoloft] 50 mg PO DAILY 03/02/18 08/16/19 History predniSONE 5 mg PO DAILY 03/02/18 08/16/19 History Lisinopril-Hctz 10-12.5 mg 1 tab PO DAILY 07/11/19 08/16/19 History [Zestoretic 10-12.5] Calcium Carbonate [Calcium] 600 mg PO MOFR 08/16/19 08/16/19 History Sennosides [Senna] 8.6 mg PO DAILY PRN 08/16/19 08/16/19 History Tacrolimus [Prograf] 0.5 mg PO BID 08/16/19 08/16/19 History Tamsulosin HCl [Flomax] 0.4 mg PO DAILY 08/16/19 08/16/19 History Allergies Allergy/AdvReac Type Severity Reaction Status Date / Time clarithromycin [From Biaxin] Allergy instructed Verified 08/16/19 11:42 not to take r/t lung transplant ibuprofen [From Motrin] Allergy Abdominal Verified 08/16/19 11:42 Pain Physical Exam Vitals: Vital Signs Temp Pulse Pulse Resp BP BP Pulse Ox 08/17/19 07:39 84 08/17/19 07:29 88 98 08/17/19 05:00 97.6 F 82 20 147/80 99 08/16/19 20:58 97.3 F L 83 20 120/69 97 08/16/19 19:31 84 18 08/16/19 19:20 82 18 08/16/19 18:20 97.6 F 80 22 118/64 96 08/16/19 17:44 98.3 F 80 18 119/64 96 08/16/19 16:32 80 08/16/19 16:19 71 08/16/19 14:23 79 18 119/64 96 08/16/19 12:28 74 22 120/69 97 08/16/19 12:22 74 08/16/19 12:12 73 08/16/19 11:53 20 08/16/19 11:40 98.3 F 77 26 H 115/61 94 L Intake and Output 08/16/19 08/17/19 08/17/19 22:59 06:59 14:59 Intake Total 255 590 Output Total 300 Balance 255 290 Intake: Intake, IV Titration 255 Amount Sodium Chloride 0.9% 1, 130 000 ml @ 130 mls/hr IV . [id number] BARB Rx#:[id number] Vancomycin 1,250 mg In 125 Sodium Chloride 0.9% 250 ml @ 125 mls/hr IVPB Q24HR@1200 BARB Rx#: [id number] Oral 590 Output: Urine 300 Other: Voiding Method Toilet # Voids 1 1 Weight 67.268 kg Gen: This is a 68-year-old male. Patient is sitting on the edge of the bed with accessory muscle usage and intercostal retractions. HEENT: Head is atraumatic, normocephalic. Pupils equal, round. Sclerae is anicteric. NECK: Supple. No JVD. No lymphadenopathy. No thyromegaly. LUNGS: Diminished with crackles and expiratory wheeze. Mild intercostal retractions. HEART: Regular rate and rhythm. No murmur. ABDOMEN: Soft. Bowel sounds are present. No masses. No tenderness. EXTREMITIES: No pedal edema. No calf tenderness. NEUROLOGICAL: Patient is awake, alert and oriented x3. Cranial nerves 2 through 12 are grossly intact. Results CBC & Chem 7: 08/16/19 12:25 08/17/19 13:18 Labs: Abnormal Lab Results - Last 24 Hours (Table) 08/16/19 08/16/19 Range/Units 12:25 12:25 RBC 3.45 L (4.30-5.90) m/uL Hgb 11.1 L (13.0-17.5) gm/dL Hct 34.3 L (39.0-53.0) % Plt Count 63 L (150-450) k/uL Neutrophils # 8.9 H (1.3-7.7) k/uL Lymphocytes # 0.3 L (1.0-4.8) k/uL Sodium 131 L (137-145) mmol/L Carbon Dioxide 19 L (22-30) mmol/L BUN 53 H (9-20) mg/dL Creatinine 2.10 H (0.66-1.25) mg/dL Glucose 155 H (74-99) mg/dL Total Bilirubin 1.4 H (0.2-1.3) mg/dL ALT 73 H (4-49) U/L Thrombosis Risk Factor Assmnt - DVT/VTE Prophylaxis DVT/VTE Prophylaxis: Pharmacologic Prophylaxis ordered - Choose All That Apply Any of the Below Risk Factors Present?: Yes Other Risk Factors: Yes Each Risk Factor Represents 2 Points: Age 61-74 years Thrombosis Risk Factor Assessment Total Risk Factor Score: 2 Thrombosis Risk Factor Assessment Level: Low Risk Assessment and Plan Plan: 1. Acute hypoxic respiratory failure secondary to left lung pneumonia, probable gram-negative pneumonia. Patient has been seen by Dr. Syed. Sputum for Gram stain and culture, blood culture in progress. Legionella ordered. Continue Levaquin, Zosyn and vancomycin. DuoNeb treatments 4 times daily every 4 hours as needed, Solu-Medrol 40 mg IV every 8 hours. 2. History of bilateral lung transplant in 2008 at [facility]. Continue Prograf 2.5 mg twice daily. Patient is usually on prednisone 5 mg daily and Bactrim Wednesday which are on hold. 3. Hypertension. Continue Norvasc 10 mg daily Toprol-XL 100 mg daily. 3. Hypogammaglobulinemia on IVIG replacement therapy as an outpatient. IgG level as above. 4. Diabetes mellitus type 2, insulin requiring. Continue Levemir 50 units every morning, NovoLog scale before meals and at bedtime. 5. Acute kidney injury. Continue IV fluids, monitor renal function. Lisinopril/hydrochlorothiazide on hold. 6. Chronic kidney disease stage III. Continue sodium bicarb 1300 mg twice daily, calcium carbonate 500 mg Wednesday and Wednesday. 7. Benign prostatic hypertrophy. Continue Flomax 0.4 mg daily. 8. Gastroesophageal reflux disease and GI prophylaxis. Protonix. 9. Recurrent depression. Continue Zoloft 50 mg daily. 10. DVT prophylaxis. Heparin subcu. Patient will be admitted to the hospital for a minimum of 2 night stay. Discharge plan: Home with significant other. Impression and plan of care have been directed as dictated by the signing physician. Tiera Elder nurse practitioner acting as scribe for signing physician.
[2019-08-17] MEDS: methylPREDNISolone SOD SUCCI 40 MG/ML 1 ML VIAL IV SCH ×2 (16:36→23:19)
[2019-08-17 16:47] LABS: Glucose,Whole Blood 306 mg/dL (75-99)
[2019-08-17 20:06] LABS: Glucose,Whole Blood 241 mg/dL (75-99)
[2019-08-17] MEDS: HEPARIN SODIUM,PORCINE 5,000 UNIT/ML 1 ML VIAL SQ SCH (20:28)
[2019-08-17] MEDS ORDERED: LEVOFLOXACIN 250MG-D5W PMX 250 MG in DEXTROSE/WATER 1 50ML.BAG IVPB SCH (21:00)
[2019-08-18] MEDS: PIPERACILLIN-TAZOBACTAM 3.375 GM in SODIUM CHLORIDE 0.9% 100 ML IVPB SCH ×3 (05:02→19:51)
[2019-08-18] MEDS: SODIUM CHLORIDE 0.9% 1,000 ML IV SCH ×2 (05:02→15:29)
[2019-08-18 07:27] LABS: Glucose,Whole Blood 278 mg/dL (75-99)
[2019-08-18] MEDS: PANTOPRAZOLE 40 MG TABLET PO SCH (07:46)
[2019-08-18] MEDS: HYDROcodone/APAP 5-325MG 1 EACH TAB PO SCH ×3 (07:46→21:47)
[2019-08-18] MEDS: ALLOPURINOL 100 MG TAB PO SCH (07:46)
[2019-08-18] MEDS: TACROLIMUS 0.5 MG CAP PO SCH ×2 (07:47→19:53)
[2019-08-18] MEDS: SERTRALINE 50 MG TAB PO SCH (07:47)
[2019-08-18] MEDS: METOPROLOL SUCCINATE (ER) 100 MG TAB.ER.24H PO SCH (07:47)
[2019-08-18] MEDS: MULTIVITAMINS, THERA 1 EACH TAB PO SCH (07:47)
[2019-08-18] MEDS: SODIUM BICARBONATE TAB 650 MG TAB PO SCH ×2 (07:47→19:52)
[2019-08-18] MEDS: IPRATROPIUM-ALBUTEROL 3 ML NEB INHALATION SCH ×4 (07:47→20:16)
[2019-08-18] MEDS: FLUDROCORTISONE 0.1 MG TAB PO SCH (07:47)
[2019-08-18] MEDS: METOCLOPRAMIDE 10 MG TAB PO SCH (07:48)
[2019-08-18] MEDS: TAMSULOSIN 0.4 MG CAP.ER.24H PO SCH (07:48)
[2019-08-18] MEDS: TACROLIMUS 1 MG CAP PO SCH ×2 (07:49→19:53)
[2019-08-18] MEDS: HEPARIN SODIUM,PORCINE 5,000 UNIT/ML 1 ML VIAL SQ SCH ×2 (07:52→19:51)
[2019-08-18] MEDS: methylPREDNISolone SOD SUCCI 40 MG/ML 1 ML VIAL IV SCH ×2 (07:53→19:51)
[2019-08-18] MEDS: INSULIN DETEMIR (LEVEMIR) 100 UNIT/ML SYR SQ SCH (07:53)
[2019-08-18] MEDS: INSULIN ASPART (NovoLOG) 100 UNIT/ML VIAL SQ SCH ×4 (07:53→20:22)
[2019-08-18] MEDS: FERROUS SULFATE 325 MG TAB PO SCH ×2 (07:55→19:52)
[2019-08-18] MEDS: amLODIPine 10 MG TAB PO SCH (07:55)
--- NOTE | 2019-08-18 08:39 | XR ---
EXAMINATION TYPE: XR chest 2V DATE OF EXAM: 08/18/2019 COMPARISON: July 2019 HISTORY: Shortness of breath TECHNIQUE: Frontal and lateral views of the chest are obtained. FINDINGS: Scattered senescent parenchymal changes noted. Hyperinflation compatible with COPD. Patchy perihilar and basal infiltrate versus plate. The pleural thickening right lung is also unchang ed. Heart size is stable. Mediastinal structures are stable and grossly unremarkable. No evidence for hilar prominence. Degenerative changes dorsal spine. IMPRESSION: 1. Stable chest.
[2019-08-18 08:48] LABS: Calcium 8.4 mg/dL (8.4-10.2); Potassium 3.8 mmol/L (3.5-5.1)
[2019-08-18 11:09] LABS: Glucose,Whole Blood 276 mg/dL (75-99)
[2019-08-18] MEDS: CALCIUM CARBONATE 500 MG CHEWABLE PO SCH (11:45)
[2019-08-18] MEDS: VANCOMYCIN 1,250 MG in SODIUM CHLORIDE 0.9% 250 ML IVPB SCH (11:46)
--- NOTE | 2019-08-18 12:12 | P.PN ---
Subjective Progress Note Date: 08/18/19 This is a 68-year-old male patient of Dr. Louie Alaniz with past medical history of bilateral lung transplant in 2008 at [facility] with underlying COPD, pulmonary fibrosis, hypogammaglobulinemia on IVIG replacement, chronic kidney disease stage III, diabetes mellitus type 2, osteoarthritis of spine with degenerative disc disease, gastroesophageal reflux disease, hypertension. Patient gives history of increasing shortness of breath for the past 3 days with cough and sputum production. Mild blood noted in his sputum. Patient states he has also had a loss of appetite and not eat well for the past 3 days. Patient came into [facility] emergency center for evaluation. Pulse ox was 94%,, vital signs stable. Sodium 131, CO2 19, BUN 53 and creatinine 2.10, blood sugar 155. Lactic acid 1.3, influenza testing negative. Total bilirubin 1.4, AST 59, ALT 73 and alkaline phosphatase 104. INR 1.1. Troponin 0.015. ProBNP 6250. IgG 1250. Chest x-ray shows postsurgical changes with prior lung transplantation. Nodular opacities at the left mid lung could r epresent pneumonia or neoplasm. Interstitial changes in the periphery of the right lung of unknown chronicity. Repeat chest x-ray this morning reveals improving left perihilar infiltrate which can be compatible with pneumonia. Small amount of fluid or pleural thickening along the right lateral margin. Patient fitted to the MedSurg floor and consult with Dr. Syed. 07/18: Patient states that his breathing status is a little better. Solu-Medrol will be decreased to frequency of every 12 hours. He continues to have a cough with sputum valentino green color. He states he is not eating very much but is drinking okay. Continue IV fluids for 1 more day. Patient is afebrile, heart rate 77, blood pressure 130/72, pulse ox 99% on 2 L nasal cannula. Repeat blood work reveals sodium 136, potassium 3.8, chloride 103, CO2 21. Lung sounds improving. Most likely plan for discharge tomorrow. Objective - Vital Signs Vital signs: Vital Signs Temp 97.9 F 08/18/19 04:23 Pulse 82 08/18/19 08:06 Resp 16 08/18/19 04:23 BP 142/71 08/18/19 04:23 Pulse Ox 97 08/18/19 07:56 Intake & Output 08/17/19 08/18/19 08/18/19 18:59 06:59 18:59 Intake Total 240 815 Output Total 300 600 Balance -60 215 Intake: Intake, IV Titration 225 Amount Sodium Chloride 0.9% 1, 225 000 ml @ 75 mls/hr IV . [id number] BARB Rx#:[id number] Oral 240 590 Output: Urine 300 600 Other: Voiding Method Toilet Toilet # Voids 2 - Exam Review of Systems Constitutional: Reports anorexia, Reports chronic pain, Reports fatigue, Reports lethargy, Reports malaise, Reports poor appetite, Reports weight loss, Denies fever Eyes: denies blurred vision, denies pain Ears, nose, mouth and throat: Denies dysphagia, Denies headache, Denies nasal congestion, Denies nasal discharge, Denies sore throat, Denies vertigo Cardiovascular: Reports decreased exercise tolerance, Reports dyspnea on exertion, Reports edema, Reports shortness of breath improving, Denies chest pain, Denies leg edema, Denies lightheadedness, Denies syncope Respiratory: Reports cough, Reports cough with sputum, Reports dyspnea, Reports hemoptysis, Reports respiratory infections, Reports wheezing, Denies excessive s putum Gastrointestinal: Reports loss of appetite, Denies abdominal pain, Denies diarrhea, Denies nausea, Denies vomiting Genitourinary: Denies dysuria, Denies urinary frequency, Denies urinary retention Musculoskeletal: Reports low back pain, Reports muscle weakness, Denies frequent falls, Denies myalgias Integumentary: Denies pruritus, Denies rash, Denies wounds Neurological: Denies change in mentation, Denies change in speech, Denies numbness, Denies weakness Psychiatric: Denies anxiety, Denies depression Endocrine: Denies fatigue, Denies weight change Physical exam: Gen: This is a 68-year-old male. Patient is sleeping flat in bed and appears to be in no acute distress. Patient awakens easily to verbal stimuli. HEENT: Head is atraumatic, normocephalic. Pupils equal, round. Sclerae is anicteric. NECK: Supple. No JVD. No lymphadenopathy. No thyromegaly. LUNGS: Clear to auscultation. No intercostal retractions. HEART: Regular rate and rhythm. No murmur. ABDOMEN: Soft. Bowel sounds are present. No masses. No tenderness. EXTREMITIES: No pedal edema. No calf tenderness. NEUROLOGICAL: Patient is awake, alert and oriented x3. Cranial nerves 2 through 12 are grossly intact. - Labs CBC & Chem 7: 08/16/19 12:25 08/18/19 08:03 Labs: Abnormal Lab Results - Last 24 Hours (Table) 08/17/19 08/17/19 08/17/19 Range/Units 13:18 16:45 20:04 Sodium 135 L (137-145) mmol/L Carbon Dioxide 17 L (22-30) mmol/L BUN 51 H (9-20) mg/dL Creatinine 1.74 H (0.66-1.25) mg/dL Glucose 269 H (74-99) mg/dL POC Glucose (mg/dL) 306 H 241 H (75-99) mg/dL Calcium 8.2 L (8.4-10.2) mg/dL 08/18/19 08/18/19 Range/Units 07:26 08:03 Sodium 136 L (137-145) mmol/L Carbon Dioxide 21 L (22-30) mmol/L BUN 50 H (9-20) mg/dL Creatinine 1.51 H (0.66-1.25) mg/dL Glucose 263 H (74-99) mg/dL POC Glucose (mg/dL) 278 H (75-99) mg/dL Calcium (8.4-10.2) mg/dL Microbiology - Last 24 Hours (Table) 08/16/19 12:25 Blood Culture - Preliminary Blood No Growth after 24 hours Assessment and Plan Plan: 1. Acute hypoxic respiratory failure secondary to left lung pneumonia, probable gram-negative pneumonia. Patient has been seen by Dr. Syed. Sputum for Gram stain and culture, blood culture in progress. Legionella pending. Continue Levaquin, Zosyn and vancomycin. DuoNeb treatments 4 times daily every 4 hours as needed, Solu-Medrol 40 mg IV decreased frequency to every 12 hours. 2. History of bilateral lung transplant in 2008 at [facility]. Continue Prograf 2.5 mg twice daily. Patient is usually on prednisone 5 mg daily and Bactrim Wednesday which are on hold. 3. Hypertension. Continue Norvasc 10 mg daily Toprol-XL 100 mg daily. 3. Hypogammaglobulinemia on IVIG replacement therapy as an outpatient. IgG level within normal limits. 4. Diabetes mellitus type 2, insulin requiring. Continue Levemir 50 units every morning, NovoLog scale before meals and at bedtime. 5. Acute kidney injury. Continue IV fluids, monitor renal function. Lisinopril/hydrochlorothiazide on hold. 6. Chronic kidney disease stage III. Continue sodium bicarb 1300 mg twice daily, calcium carbonate 500 mg Wednesday and Wednesday. 7. Benign prostatic hypertrophy. Continue Flomax 0.4 mg daily. 8. Gastroesophageal reflux disease and GI prophylaxis. Protonix. 9. Recurrent depression. Continue Zoloft 50 mg daily. 10. DVT prophylaxis. Heparin subcu. Discharge plan: Home with significant other on Wednesday. Impression and plan of care have been directed as dictated by the signing physician. Tiera Elder nurse practitioner acting as scribe for signing physician.
--- NOTE | 2019-08-18 12:26 | P.PN ---
Subjective Progress Note Date: 08/18/19 On O2 2019 patient seen in follow-up in the regular medical oncology floor, he states is feeling better, coughing less, and less dyspneic, he has been afebrile, patient remains on a combination of Levaquin and Zosyn and vancomycin, blood cultures have shown no growth, sputum culture has been sent and is pending at this time, today's chest x-ray showing stable findings of improving left perihilar infiltrate and a small amount of fluid at the right lateral margin. Overall improved since admission. Objective - Vital Signs Vital signs: Vital Signs Temp 97.6 F 08/18/19 11:39 Pulse 84 08/18/19 11:47 Resp 18 08/18/19 11:39 BP 138/72 08/18/19 11:39 Pulse Ox 99 08/18/19 11:39 Intake & Output 08/17/19 08/18/19 08/18/19 18:59 06:59 18:59 Intake Total 240 815 Output Total 300 600 Balance -60 215 Intake: Intake, IV Titration 225 Amount Sodium Chloride 0.9% 1, 225 000 ml @ 75 mls/hr IV . [id number] BARB Rx#:[id number] Oral 240 590 Output: Urine 300 600 Other: Voiding Method Toilet Toilet # Voids 2 - Exam GENERAL EXAM: Alert, pleasant, 68-year-old white male, on 2 L of oxygen comfortable in no apparent distress. HEAD: Normocephalic/atraumatic. EYES: Normal reaction of pupils, equal size. Conjunctiva pink, sclera white. NOSE: Clear with pink turbinates. THROAT: No erythema or exudates. NECK: No masses, no JVD, no thyroid enlargement, no adenopathy. CHEST: No chest wall deformity. Symmetrical expansion. LUNGS: Equal air entry with bibasilar crackles, no wheeze, rhonchi or dullness. CVS: Regular rate and rhythm, normal S1 and S2, no gallops, no murmurs, no rubs ABDOMEN: Soft, nontender. No hepatosplenomegaly, normal bowel sounds, no guarding or rigidity. EXTREMITIES: No clubbing, no edema, no cyanosis, 2+ pulses and upper and lower extremities. MUSCULOSKELETAL: Muscle strength and tone normal. SPINE: No scoliosis or deformity SKIN: No rashes. Healed clamshell incision from previous double lung transplantation under the rib cage CENTRAL NERVOUS SYSTEM: Alert and oriented -3. No focal deficits, tone is normal in all 4 extremities. PSYCHIATRIC: Alert and oriented -3. Appropriate affect. Intact judgment and insight. - Labs CBC & Chem 7: 08/16/19 12:25 08/18/19 08:03 Labs: Abnormal Lab Results - Last 24 Hours (Table) 08/17/19 08/17/19 08/17/19 Range/Units 13:18 16:45 20:04 Sodium 135 L (137-145) mmol/L Carbon Dioxide 17 L (22-30) mmol/L BUN 51 H (9-20) mg/dL Creatinine 1.74 H (0.66-1.25) mg/dL Glucose 269 H (74-99) mg/dL POC Glucose (mg/dL) 306 H 241 H (75-99) mg/dL Calcium 8.2 L (8.4-10.2) mg/dL 08/18/19 08/18/19 08/18/19 Range/Units 07:26 08:03 11:08 Sodium 136 L (137-145) mmol/L Carbon Dioxide 21 L (22-30) mmol/L BUN 50 H (9-20) mg/dL Creatinine 1.51 H (0.66-1.25) mg/dL Glucose 263 H (74-99) mg/dL POC Glucose (mg/dL) 278 H 276 H (75-99) mg/dL Calcium (8.4-10.2) mg/dL Microbiology - Last 24 Hours (Table) 08/16/19 12:25 Blood Culture - Preliminary Blood No Growth after 24 hours Assessment and Plan Plan: Assessment: 1 acute left lung pneumonia involving the left upper lobe and lingular segment and the patient has dense consolidation associated with development of an acute hypoxic respiratory failure, acute shortness of breath and some limited hemoptysis. He is having also some pleuritic chest pain along the left side of the chest. The patient was hospitalized for the same. He has been receiving Bactrim prophylaxis as an outpatient basis. He was also receiving IVIG for chronic hyperglobulinemia. The patient is clinically improving. There is improvement in the left lung consolidation on today's chest x-ray. 2 Acute hypoxic respiratory failure secondary to above 3 acute hemoptysis secondary to above 4 acute shortness of breath secondary to above 5 bilateral lung transplantation. The patient estimates that the patient 2009 for COPD/fibrosis 6 chronic stage III kidney disease 7 diabetes mellitus2 8 chronic back pain Plan: Today's chest x-ray has been reviewed showing no major difference compared to yesterday's chest x-ray however overall left lung consolidation has shown improvement since admission. Clinically patient is stable, breathing easier, so me limited cough with some phlegm production, sputum culture is pending, blood culture has been negative, has been afebrile, his covered with the combination of Levaquin, Zosyn and vancomycin, continue current treatment, presented activity as tolerated. Possibility of discharge home in the next 24 hours I performed a history & physical examination of the patient and discussed their management with my nurse practitioner, Marina Ayala. I reviewed the nurse practitioner's note and agree with the documented findings and plan of care. Lung sounds are positive for diminished breath sounds some limited bibasilar crackles. The findings and the impression was discussed with the patient. I attest to the documentation by the nurse practitioner. Time with Patient: Less than 30
[2019-08-18 17:13] LABS: Glucose,Whole Blood 265 mg/dL (75-99)
[2019-08-18] MEDS: LEVOFLOXACIN 250 MG TAB PO SCH (19:52)
[2019-08-18 20:06] LABS: Glucose,Whole Blood 293 mg/dL (75-99)
[2019-08-19] MEDS: PIPERACILLIN-TAZOBACTAM 3.375 GM in SODIUM CHLORIDE 0.9% 100 ML IVPB SCH ×3 (04:00→20:39)
[2019-08-19 07:05] LABS: Glucose,Whole Blood 141 mg/dL (75-99)
[2019-08-19] MEDS: INSULIN DETEMIR (LEVEMIR) 100 UNIT/ML SYR SQ SCH (08:07)
[2019-08-19] MEDS: INSULIN ASPART (NovoLOG) 100 UNIT/ML VIAL SQ SCH ×4 (08:08→20:40)
[2019-08-19] MEDS: SODIUM BICARBONATE TAB 650 MG TAB PO SCH ×2 (08:09→20:41)
[2019-08-19] MEDS: METOPROLOL SUCCINATE (ER) 100 MG TAB.ER.24H PO SCH (08:09)
[2019-08-19] MEDS: FLUDROCORTISONE 0.1 MG TAB PO SCH (08:09)
[2019-08-19] MEDS: HEPARIN SODIUM,PORCINE 5,000 UNIT/ML 1 ML VIAL SQ SCH ×2 (08:10→20:40)
[2019-08-19] MEDS: MULTIVITAMINS, THERA 1 EACH TAB PO SCH (08:10)
[2019-08-19] MEDS: methylPREDNISolone SOD SUCCI 40 MG/ML 1 ML VIAL IV SCH ×2 (08:10→20:40)
[2019-08-19] MEDS: PANTOPRAZOLE 40 MG TABLET PO SCH (08:10)
[2019-08-19] MEDS: METOCLOPRAMIDE 10 MG TAB PO SCH (08:10)
[2019-08-19] MEDS: FERROUS SULFATE 325 MG TAB PO SCH ×2 (08:10→20:40)
[2019-08-19] MEDS: amLODIPine 10 MG TAB PO SCH (08:10)
[2019-08-19] MEDS: HYDROcodone/APAP 5-325MG 1 EACH TAB PO SCH ×3 (08:11→23:32)
[2019-08-19] MEDS: ALLOPURINOL 100 MG TAB PO SCH (08:11)
[2019-08-19] MEDS: TACROLIMUS 0.5 MG CAP PO SCH ×2 (08:11→20:41)
[2019-08-19] MEDS: SERTRALINE 50 MG TAB PO SCH (08:11)
[2019-08-19] MEDS: TACROLIMUS 1 MG CAP PO SCH ×2 (08:12→20:41)
[2019-08-19] MEDS: TAMSULOSIN 0.4 MG CAP.ER.24H PO SCH (08:12)
[2019-08-19] MEDS: SODIUM CHLORIDE 0.9% 1,000 ML IV SCH ×2 (08:20→17:54)
[2019-08-19] MEDS: IPRATROPIUM-ALBUTEROL 3 ML NEB INHALATION SCH ×4 (09:13→20:11)
--- NOTE | 2019-08-19 11:09 | P.PN ---
Subjective Progress Note Date: 08/19/19 On today's evaluation of 08/19/2019 we are seeing the patient for a follow-up. The patient is feeling less short of breath. He has a congested cough. Unable to bring up much sputum. Chest x-ray shows ongoing improvement in the left lung pneumonia. The patient remains on Zosyn and Levaquin and vancomycin. The patient is afebrile. Currently off the Levoxyl by nasal cannula with a pulse is 99%. Reactive is stable at 1.35. Tolerating his diet. No nausea. No vomiting. No emesis. No altered mentation. Objective - Vital Signs Vital signs: Vital Signs Temp 98.1 F 08/19/19 05:00 Pulse 88 08/19/19 09:29 Resp 16 08/19/19 05:00 BP 149/75 08/19/19 05:00 Pulse Ox 100 08/19/19 05:00 Intake & Output 08/18/19 08/19/19 08/19/19 18:59 06:59 18:59 Intake Total 1985 590 Output Total 400 300 Balance 1585 290 Intake: Intake, IV Titration 825 Amount Piperacillin-Tazobactam 3 100 .375 gm In Sodium Chloride 0.9% 100 ml @ 25 mls/hr IVPB Q8H [facility] Rx#: [id number] Sodium Chloride 0.9% 1, 600 000 ml @ 75 mls/hr IV . [id number] [facility] Rx#:[id number] Vancomycin 1,250 mg In 125 Sodium Chloride 0.9% 250 ml @ 125 mls/hr IVPB Q24HR@1200 [facility] Rx#: [id number] Oral 1160 590 Output: Urine 400 300 Other: Voiding Method Toilet Toilet Toilet # Voids 4 2 - Exam Gen. appearance the patient is a mild degree of respiratory distress on 2 L about 2 by nasal cannula Head exam was generally normal. There was no scleral icterus or corneal arcus. Mucous membranes were moist. Neck was supple and without jugular venous distension, thyromegaly, or carotid bruits. Carotids were easily palpable bilaterally. There was no adenopathy. Examination of the lungs shows a clamshell incision over the anterior chest related to transplantation. The patient has crackles in the left upper lobe in the left midlung area anteriorly and posteriorly. Cardiac exam revealed the PMI to be normally situated and sized. The rhythm was regular and no extrasystoles were noted during several minutes of auscultation. The first and second heart sounds were normal and physiologic splitting of the second heart sound was noted. There were no murmurs, rubs, clicks, or gallops. Abdominal exam revealed normal bowel sounds. The abdomen was soft, non-tender, and without masses, organomegaly, or appreciable enlargement of the abdominal aorta. The patient has an abdominal wall hernia on examination Examination of the extremities revealed easily palpable radial, femoral and pedal pulses. There was no cyanosis, clubbing or edema. Examination of the skin revealed no evidence of significant rashes, suspicious appearing nevi or other concerning lesions. - Labs CBC & Chem 7: 08/16/19 12:25 08/19/19 07:11 Labs: Abnormal Lab Results - Last 24 Hours (Table) 08/18/19 08/18/19 08/18/19 Range/Units 11:08 17:10 20:04 Creatinine (0.66-1.25) mg/dL POC Glucose (mg/dL) 276 H 265 H 293 H (75-99) mg/dL 08/19/19 08/19/19 Range/Units 07:03 07:11 Creatinine 1.35 H (0.66-1.25) mg/dL POC Glucose (mg/dL) 141 H (75-99) mg/dL Microbiology - Last 24 Hours (Table) 08/18/19 08:00 Gram Stain - Preliminary Sputum Sputum Culture - Preliminary 08/16/19 12:25 Blood Culture - Preliminary Blood No Growth after 48 hours Assessment and Plan Plan: 1 acute left lung pneumonia involving the left upper lobe and lingular segment and the patient has dense consolidation associated with development of an acute hypoxic respiratory failure, acute shortness of breath and some limited he moptysis. He is having also some pleuritic chest pain along the left side of the chest. The patient was hospitalized for the same. He has been receiving Bactrim prophylaxis as an outpatient basis. He was also receiving IVIG for chronic hyperglobulinemia. The patient continues to clinically improve. The follow-up chest x-ray shows improvement in the left lung pneumonia. Still on several antibiotics pending sputum 2 Acute hypoxic respiratory failure secondary to above 3 acute hemoptysis secondary to above 4 acute shortness of breath secondary to above 5 bilateral lung transplantation. The patient estimates that the patient 2009 for COPD/fibrosis 6 chronic stage III kidney disease 7 diabetes mellitus2 8 chronic back pain Plan antibiotic coverage including a combination of Levaquin and Zosyn and vancomycin Oxygen therapy at 2 L per minute nasal cannula Chest x-ray is showing improvement in the left lung consolidation. Legionella urine antigen is negative. Sputum Gram stain and culture is pending. Serum IgG level is above 1200. We'll continue to follow.
[2019-08-19 11:15] LABS: Glucose,Whole Blood 274 mg/dL (75-99)
--- NOTE | 2019-08-19 13:10 | P.PN ---
Subjective Progress Note Date: 08/19/19 This is a 68-year-old male patient of Dr. Louie Alaniz with past medical history of bilateral lung transplant in 2008 at [facility] with underlying COPD, pulmonary fibrosis, hypogammaglobulinemia on IVIG replacement, chronic kidney disease stage III, diabetes mellitus type 2, osteoarthritis of spine with degenerative disc disease, gastroesophageal reflux disease, hypertension. Patient gives history of increasing shortness of breath for the past 3 days with cough and sputum production. Mild blood noted in his sputum. Patient states he has also had a loss of appetite and not eat well for the past 3 days. Patient came into [facility] emergency center for evaluation. Pulse ox was 94%,, vital signs stable. Sodium 131, CO2 19, BUN 53 and creatinine 2.10, blood sugar 155. Lactic acid 1.3, influenza testing negative. Total bilirubin 1.4, AST 59, ALT 73 and alkaline phosphatase 104. INR 1.1. Troponin 0.015. ProBNP 6250. IgG 1250. Chest x-ray shows postsurgical changes with prior lung transplantation. Nodular opacities at the left mid lung could r epresent pneumonia or neoplasm. Interstitial changes in the periphery of the right lung of unknown chronicity. Repeat chest x-ray this morning reveals improving left perihilar infiltrate which can be compatible with pneumonia. Small amount of fluid or pleural thickening along the right lateral margin. Patient fitted to the MedSurg floor and consult with Dr. Syed. 08/18: Patient states that his breathing status is a little better. Solu-Medrol will be decreased to frequency of every 12 hours. He continues to have a cough with sputum valentino green color. He states he is not eating very much but is drinking okay. Continue IV fluids for 1 more day. Patient is afebrile, heart rate 77, blood pressure 130/72, pulse ox 99% on 2 L nasal cannula. Repeat blood work reveals sodium 136, potassium 3.8, chloride 103, CO2 21. Lung sounds improving. Most likely plan for discharge tomorrow. 08/19: Patient's breathing status is slowly improving. He has less shortness of breath. He has cough with minimal sputum production. He is currently on Zosyn Levaquin and vancomycin. Pulse ox is 98% on 3 L nasal cannula. Heart rate 80. Patient afebrile, blood pressure 151/78, heart rate 80. Creatinine 1.35. Blood sugars running between 141 and 293. Legionella testing negative. Sputum culture is in progress. Patient is complaining of diarrhea occurring every 1-3 hours. This is to be monitored. He has had no nausea or vomiting, no abdominal pain. Objective - Vital Signs Vital signs: Vital Signs Temp 98.1 F 08/19/19 05:00 Pulse 88 08/19/19 09:29 Resp 16 08/19/19 05:00 BP 149/75 08/19/19 05:00 Pulse Ox 100 08/19/19 05:00 Intake & Output 08/18/19 08/19/19 08/19/19 18:59 06:59 18:59 Intake Total 1985 590 Output Total 400 300 Balance 1585 290 Intake: Intake, IV Titration 825 Amount Piperacillin-Tazobactam 3 100 .375 gm In Sodium Chloride 0.9% 100 ml @ 25 mls/hr IVPB Q8H [facility] Rx#: [id number] Sodium Chloride 0.9% 1, 600 000 ml @ 75 mls/hr IV . [id number] [facility] Rx#:[id number] Vancomycin 1,250 mg In 125 Sodium Chloride 0.9% 250 ml @ 125 mls/hr IVPB Q24HR@1200 [facility] Rx#: [id number] Oral 1160 590 Output: Urine 400 300 Other: Voiding Method Toilet Toilet Toilet # Voids 4 2 - Exam Review of Systems Constitutional: Reports anorexia, Reports chronic pain, Reports fatigue, Reports lethargy, Reports malaise, Reports poor appetite, Reports weight loss, Denies fever Eyes: denies blurred vision, denies pain Ears, nose, mouth and throat: Denies dysphagia, Denies headache, Denies nasal congestion, Denies nasal discharge, Denies sore throat, Denies vertigo Cardiovascular: Reports decreased exercise tolerance, Reports dyspnea on exertion, Reports edema, Reports shortness of breath improving, Denies chest pain, Denies leg edema, Denies lightheadedness, Denies syncope Respiratory: Reports cough, Reports cough with sputum, Reports dyspnea, Reports hemoptysis, Reports respiratory infections, Reports wheezing, Denies excessive sputum Gastrointestinal: Reports loss of appetite, Denies abdominal pain, reports diarrhea, Denies nausea, Denies vomiting Genitourinary: Denies dysuria, Denies urinary frequency, Denies urinary retention Musculoskeletal: Reports low back pain, Reports muscle weakness, Denies frequent falls, Denies myalgias Integumentary: Denies pruritus, Denies rash, Denies wounds Neurological: Denies change in mentation, Denies change in speech, Denies numbness, Denies weakness Psychiatric: Denies anxiety, Denies depression Endocrine: Denies fatigue, Denies weight change Physical exam: Gen: This is a 68-year-old male. Patient is sleeping flat in bed and appears to be in no acute distress. Patient awakens easily to verbal stimuli. HEENT: Head is atraumatic, normocephalic. Pupils equal, round. Sclerae is anicteric. NECK: Supple. No JVD. No lymphadenopathy. No thyromegaly. LUNGS: Crackles left. No intercostal retractions. HEART: Regular rate and rhythm. No murmur. ABDOMEN: Soft. Bowel sounds are present. No masses. No tenderness. EXTREMITIES: No pedal edema. No calf tenderness. NEUROLOGICAL: Patient is awake, alert and oriented x3. Cranial nerves 2 through 12 are grossly intact. - Labs CBC & Chem 7: 08/16/19 12:25 08/19/19 07:11 Labs: Abnormal Lab Results - Last 24 Hours (Table) 08/18/19 08/18/19 08/18/19 Range/Units 11:08 17:10 20:04 Creatinine (0.66-1.25) mg/dL POC Glucose (mg/dL) 276 H 265 H 293 H (75-99) mg/dL 08/19/19 08/19/19 Range/Units 07:03 07:11 Creatinine 1.35 H (0.66-1.25) mg/dL POC Glucose (mg/dL) 141 H (75-99) mg/dL Microbiology - Last 24 Hours (Table) 08/18/19 08:00 Gram Stain - Preliminary Sputum Sputum Culture - Preliminary 08/16/19 12:25 Blood Culture - Preliminary Blood No Growth after 48 hours Assessment and Plan Plan: 1. Acute hypoxic respiratory failure secondary to left lung pneumonia, probable gram-negative pneumonia. Patient has been seen by Dr. Syed. Sputum for Gr am stain and culture, blood culture in progress. Legionella pending. Continue Levaquin, Zosyn and vancomycin. DuoNeb treatments 4 times daily every 4 hours as needed, Solu-Medrol 40 mg IV every 12 hours. 2. History of bilateral lung transplant in 2008 at [facility]. Continue Prograf 2.5 mg twice daily. Patient is usually on prednisone 5 mg daily and Bactrim Wednesday which are on hold. 3. Hypertension. Continue Norvasc 10 mg daily Toprol-XL 100 mg daily. 3. Hypogammaglobulinemia on IVIG replacement therapy as an outpatient. IgG level within normal limits. 4. Diabetes mellitus type 2, insulin requiring. Continue Levemir 50 units every morning, NovoLog scale before meals and at bedtime. 5. Acute kidney injury. Continue IV fluids, monitor renal function. Lisinopril/hydrochlorothiazide on hold. 6. Chronic kidney disease stage III. Continue sodium bicarb 1300 mg twice daily, calcium carbonate 500 mg Wednesday and Wednesday. 7. Benign prostatic hypertrophy. Continue Flomax 0.4 mg daily. 8. Gastroesophageal reflux disease and GI prophylaxis. Protonix. 9. Recurrent depression. Continue Zoloft 50 mg daily. 10. DVT prophylaxis. Heparin subcu. Discharge plan: Home with significant. Impression and plan of care have been directed as dictated by the signing physician. Tiera Elder nurse practitioner acting as scribe for signing phys micki.
[2019-08-19] MEDS: VANCOMYCIN 1,250 MG in SODIUM CHLORIDE 0.9% 250 ML IVPB SCH (13:25)
[2019-08-19 17:00] LABS: Glucose,Whole Blood 232 mg/dL (75-99)
[2019-08-19 20:03] LABS: Glucose,Whole Blood 182 mg/dL (75-99)
[2019-08-19] MEDS: LEVOFLOXACIN 250 MG TAB PO SCH (20:41)
[2019-08-20] MEDS: PIPERACILLIN-TAZOBACTAM 3.375 GM in SODIUM CHLORIDE 0.9% 100 ML IVPB SCH ×3 (04:34→21:44)
[2019-08-20 07:05] LABS: Glucose,Whole Blood 98 mg/dL (75-99)
[2019-08-20] MEDS: INSULIN ASPART (NovoLOG) 100 UNIT/ML VIAL SQ SCH ×4 (07:11→21:51)
[2019-08-20] MEDS: INSULIN DETEMIR (LEVEMIR) 100 UNIT/ML SYR SQ SCH (07:56)
[2019-08-20] MEDS: methylPREDNISolone SOD SUCCI 40 MG/ML 1 ML VIAL IV SCH ×2 (07:57→21:44)
[2019-08-20] MEDS: amLODIPine 10 MG TAB PO SCH (07:57)
[2019-08-20] MEDS: HEPARIN SODIUM,PORCINE 5,000 UNIT/ML 1 ML VIAL SQ SCH ×2 (07:57→21:43)
[2019-08-20] MEDS: TAMSULOSIN 0.4 MG CAP.ER.24H PO SCH (07:57)
[2019-08-20] MEDS: ALLOPURINOL 100 MG TAB PO SCH (07:58)
[2019-08-20] MEDS: SODIUM BICARBONATE TAB 650 MG TAB PO SCH ×2 (07:58→21:44)
[2019-08-20] MEDS: METOPROLOL SUCCINATE (ER) 100 MG TAB.ER.24H PO SCH (07:58)
[2019-08-20] MEDS: SERTRALINE 50 MG TAB PO SCH (07:58)
[2019-08-20] MEDS: TACROLIMUS 0.5 MG CAP PO SCH ×2 (07:59→21:45)
[2019-08-20] MEDS: FLUDROCORTISONE 0.1 MG TAB PO SCH (07:59)
[2019-08-20] MEDS: PANTOPRAZOLE 40 MG TABLET PO SCH (07:59)
[2019-08-20] MEDS: METOCLOPRAMIDE 10 MG TAB PO SCH (07:59)
[2019-08-20] MEDS: MULTIVITAMINS, THERA 1 EACH TAB PO SCH (07:59)
[2019-08-20] MEDS: FERROUS SULFATE 325 MG TAB PO SCH ×2 (07:59→21:43)
[2019-08-20] MEDS: HYDROcodone/APAP 5-325MG 1 EACH TAB PO SCH ×3 (08:00→21:45)
[2019-08-20] MEDS: TACROLIMUS 1 MG CAP PO SCH ×2 (08:00→21:45)
[2019-08-20] MEDS: IPRATROPIUM-ALBUTEROL 3 ML NEB INHALATION SCH ×4 (08:13→21:09)
[2019-08-20] MEDS: SODIUM CHLORIDE 0.9% 1,000 ML IV SCH (09:08)
[2019-08-20] MEDS ORDERED: VANCOMYCIN TROUGH DUE 1 EACH MISC MISCELLANE ONE (11:00)
--- NOTE | 2019-08-20 11:10 | P.PN ---
Subjective Progress Note Date: 08/20/19 This is a 68-year-old male patient of Dr. Louie Alaniz with past medical history of bilateral lung transplant in 2008 at [facility] with underlying COPD, pulmonary fibrosis, hypogammaglobulinemia on IVIG replacement, chronic kidney disease stage III, diabetes mellitus type 2, osteoarthritis of spine with degenerative disc disease, gastroesophageal reflux disease, hypertension. Patient gives history of increasing shortness of breath for the past 3 days with cough and sputum production. Mild blood noted in his sputum. Patient states he has also had a loss of appetite and not eat well for the past 3 days. Patient came into [facility] emergency center for evaluation. Pulse ox was 94%,, vital signs stable. Sodium 131, CO2 19, BUN 53 and creatinine 2.10, blood sugar 155. Lactic acid 1.3, influenza testing negative. Total bilirubin 1.4, AST 59, ALT 73 and alkaline phosphatase 104. INR 1.1. Troponin 0.015. ProBNP 6250. IgG 1250. Chest x-ray shows postsurgical changes with prior lung transplantation. Nodular opacities at the left mid lung could r epresent pneumonia or neoplasm. Interstitial changes in the periphery of the right lung of unknown chronicity. Repeat chest x-ray this morning reveals improving left perihilar infiltrate which can be compatible with pneumonia. Small amount of fluid or pleural thickening along the right lateral margin. Patient fitted to the MedSurg floor and consult with Dr. Syed. 08/18: Patient states that his breathing status is a little better. Solu-Medrol will be decreased to frequency of every 12 hours. He continues to have a cough with sputum valentino green color. He states he is not eating very much but is drinking okay. Continue IV fluids for 1 more day. Patient is afebrile, heart rate 77, blood pressure 130/72, pulse ox 99% on 2 L nasal cannula. Repeat blood work reveals sodium 136, potassium 3.8, chloride 103, CO2 21. Lung sounds improving. Most likely plan for discharge tomorrow. 08/19: Patient's breathing status is slowly improving. He has less shortness of breath. He has cough with minimal sputum production. He is currently on Zosyn Levaquin and vancomycin. Pulse ox is 98% on 3 L nasal cannula. Heart rate 80. Patient afebrile, blood pressure 151/78, heart rate 80. Creatinine 1.35. Blood sugars running between 141 and 293. Legionella testing negative. Sputum culture is in progress. Patient is complaining of diarrhea occurring every 1-3 hours. This is to be monitored. He has had no nausea or vomiting, no abdominal pain. 08/19: Patient is afebrile, heart rate 76, blood pressure 151/73, pulse ox 99% on 2 L nasal cannula. Repeat creatinine 1.22, blood sugar running between 98 and 232. Patient is continued on Levaquin, Zosyn and vancomycin as well as Solu-M edrol 40 mg every 12 hours. IV fluids will be discontinued. Anticipate discharge home tomorrow. Objective - Vital Signs Vital signs: Vital Signs Temp 98.1 F 08/20/19 05:00 Pulse 88 08/20/19 08:23 Resp 16 08/20/19 05:00 BP 151/73 08/20/19 05:00 Pulse Ox 99 08/20/19 05:00 Intake & Output 08/19/19 08/20/19 08/20/19 18:59 06:59 18:59 Intake Total 450 Balance 450 Intake: Intake, IV Titration 450 Amount Piperacillin-Tazobactam 3 200 .375 gm In Sodium Chloride 0.9% 100 ml @ 25 mls/hr IVPB Q8H [facility] Rx#: [id number] Vancomycin 1,250 mg In 250 Sodium Chloride 0.9% 250 ml @ 125 mls/hr IVPB Q24HR@1200 [facility] Rx#: [id number] Other: Voiding Method Toilet Toilet # Voids 1 - Exam Review of Systems Constitutional: Reports anorexia, Reports chronic pain, Reports fatigue, Reports lethargy, Reports malaise, Reports poor appetite, Reports weight loss, Denies fever Eyes: denies blurred vision, denies pain Ears, nose, mouth and throat: Denies dysphagia, Denies headache, Denies nasal congestion, Denies nasal discharge, Denies sore throat, Denies vertigo Cardiovascular: Reports decreased exercise tolerance, denies dyspnea on exertion, Reports edema, denies shortness of breath improving, Denies chest pain, Denies leg edema, Denies lightheadedness, Denies syncope Respiratory: Reports cough, Reports cough with sputum, denies dyspnea, denies hemoptysis, Reports respiratory infections, denies wheezing, Denies excessive sputum Gastrointestinal: Reports loss of appetite, Denies abdominal pain, reports diarrhea, Denies nausea, Denies vomiting Genitourinary: Denies dysuria, Denies urinary frequency, Denies urinary retention Musculoskeletal: Reports low back pain, Reports muscle weakness, Denies frequent falls, Denies myalgias Integumentary: Denies pruritus, Denies rash, Denies wounds Neurological: Denies change in mentation, Denies change in speech, Denies numbness, Denies weakness Psychiatric: Denies anxiety, Denies depression Endocrine: Denies fatigue, Denies weight change Physical exam: Gen: This is a 68-year-old male. Patient is sleeping flat in bed and appears to be in no acute distress. Patient awakens easily to verbal stimuli. HEENT: Head is atraumatic, normocephalic. Pupils equal, round. Sclerae is anicteric. NECK: Supple. No JVD. No lymphadenopathy. No thyromegaly. LUNGS: Lungs are clear to auscultation. No intercostal retractions. HEART: Regular rate and rhythm. No murmur. ABDOMEN: Soft. Bowel sounds are present. No masses. No tenderness. EXTREMITIES: No pedal edema. No calf tenderness. NEUROLOGICAL: Patient is awake, alert and oriented x3. Cranial nerves 2 through 12 are grossly intact. - Labs CBC & Chem 7: 08/16/19 12:25 08/20/19 06:52 Labs: Abnormal Lab Results - Last 24 Hours (Table) 08/19/19 08/19/19 08/19/19 Range/Units 11:13 16:58 20:02 POC Glucose (mg/dL) 274 H 232 H 182 H (75-99) mg/dL Microbiology - Last 24 Hours (Table) 08/16/19 12:25 Blood Culture - Preliminary Blood No Growth after 72 hours 08/18/19 08:00 Gram Stain - Preliminary Sputum Sputum Culture - Preliminary Assessment and Plan Plan: 1. Acute hypoxic respiratory failure secondary to left lung pneumonia, probable gram-negative pneumonia. Patient has been seen by Dr. Syed. Sputum for Gram stain and culture, blood culture in progress. Legionella pending. Continue Levaquin, Zosyn and vancomycin. DuoNeb treatments 4 times daily every 4 hours as needed, Solu-Medrol 40 mg IV every 12 hours. 2. History of bilateral lung transplant in 2008 at [facility]. Continue Prograf 2.5 mg twice daily. Patient is usually on prednisone 5 mg daily and Bactrim Wednesday which are on hold. 3. Hypertension. Continue Norvasc 10 mg daily Toprol-XL 100 mg daily. 3. Hypogammaglobulinemia on IVIG replacement therapy as an outpatient. IgG level within normal limits. 4. Diabetes mellitus type 2, insulin requiring. Continue Levemir 50 units every morning, NovoLog scale before meals and at bedtime. 5. Acute kidney injury. Continue IV fluids, monitor renal function. Lisinopril/hydrochlorothiazide on hold. 6. Chronic kidney disease stage III. Continue sodium bicarb 1300 mg twice daily, calcium carbonate 500 mg Wednesday and Wednesday. 7. Benign prostatic hypertrophy. Continue Flomax 0.4 mg daily. 8. Gastroesophageal reflux disease and GI prophylaxis. Protonix. 9. Recurrent depression. Continue Zoloft 50 mg daily. 10. DVT prophylaxis. Heparin subcu. Discharge plan: Home with significant other, no homecare. Home on Wednesday after completing course of antibiotics. Impression and plan of care have been directed as dictated by the signing physician. Tiera Elder nurse practitioner acting as scribe for signing physician.
[2019-08-20 11:32] LABS: Glucose,Whole Blood 137 mg/dL (75-99)
[2019-08-20] MEDS: VANCOMYCIN 1,250 MG in SODIUM CHLORIDE 0.9% 250 ML IVPB SCH (12:03)
--- NOTE | 2019-08-20 12:30 | P.PN ---
Subjective Progress Note Date: 08/20/19 On 08/20/2019 the patient continues to improve. He is on room air oxygen. No fever. No chills. No cough or sputum production. As mentioned earlier the left lung pneumonia was gradually improving and the patient had a follow-up chest x-ray yesterday that was showing gradual improvement in renal function. No nausea or vomiting. No side effects of antibiotic treatment and the patient has been a combination of Zosyn and Levaquin and vancomycin. Cultures of been all negative. Legionella urine antigen was negative. Influenza screen was negative. Sputum was negative. Blood culture is negative. Objective - Vital Signs Vital signs: Vital Signs Temp 98.1 F 08/20/19 05:00 Pulse 84 08/20/19 11:40 Resp 16 08/20/19 05:00 BP 151/73 08/20/19 05:00 Pulse Ox 99 08/20/19 05:00 Intake & Output 08/19/19 08/20/19 08/20/19 18:59 06:59 18:59 Intake Total 450 Balance 450 Intake: Intake, IV Titration 450 Amount Piperacillin-Tazobactam 3 200 .375 gm In Sodium Chloride 0.9% 100 ml @ 25 mls/hr IVPB Q8H [facility] Rx#: [id number] Vancomycin 1,250 mg In 250 Sodium Chloride 0.9% 250 ml @ 125 mls/hr IVPB Q24HR@1200 [facility] Rx#: [id number] Other: Voiding Method Toilet Toilet # Voids 1 - Exam Gen. appearance the patient is not having any respiratory distress and oxygen is up to 99% on room air. Head exam was generally normal. There was no scleral icterus or corneal arcus. Mucous membranes were moist. Neck was supple and without jugular venous distension, thyromegaly, or carotid bruits. Carotids were easily palpable bilaterally. There was no adenopathy. Examination of the lungs shows a clamshell incision over the anterior chest related to transplantation. The patient has crackles in the left upper lobe in the left midlung area anteriorly and posteriorly. Cardiac exam revealed the PMI to be normally situated and sized. The rhythm was regular and no extrasystoles were noted during several minutes of auscultation. The first and second heart sounds were normal and physiologic splitting of the second heart sound was noted. There were no murmurs, rubs, clicks, or gallops. Abdominal exam revealed normal bowel sounds. The abdomen was soft, non-tender, and without masses, organomegaly, or appreciable enlargement of the abdominal aorta. The patient has an abdominal wall hernia on examination Examination of the extremities revealed easily palpable radial, femoral and pedal pulses. There was no cyanosis, clubbing or edema. Examination of the skin revealed no evidence of significant rashes, suspicious appearing nevi or other concerning lesions. - Labs CBC & Chem 7: 08/16/19 12:25 08/20/19 06:52 Labs: Abnormal Lab Results - Last 24 Hours (Table) 08/19/19 08/19/19 08/20/19 Range/Units 16:58 20:02 11:30 POC Glucose (mg/dL) 232 H 182 H 137 H (75-99) mg/dL Microbiology - Last 24 Hours (Table) 08/18/19 08:00 Gram Stain - Final Sputum Sputum Culture - Final 08/16/19 12:25 Blood Culture - Preliminary Blood No Growth after 72 hours Assessment and Plan Plan: 1 acute left lung pneumonia involving the left upper lobe and lingular segment and the patient has dense consolidation associated with development of an acute hypoxic respiratory failure, acute shortness of breath and some limited hemoptysis. He is having also some pleuritic chest pain along the left side of the chest. The patient was hospitalized for the same. He has been receiving Bactrim prophylaxis as an outpatient basis. He was also receiving IVIG for chronic hyperglobulinemia. The patient was covered with several antibiotics and he continues to improve. Currently is on room air oxygen. Chest x-ray was showing clearing of the left lung pneumonia. 2 Acute hypoxic respiratory failure secondary to above , recovered 3 acute hemoptysis secondary to above, not active for now 4 acute shortness of breath secondary to above 5 bilateral lung transplantation. The patient estimates that the patient 2009 for COPD/fibrosis 6 chronic stage III kidney disease 7 diabetes mellitus2 8 chronic back pain Plan antibiotic coverage including a combination of Levaquin and Zosyn and vancomycin and the patient can be simplified to Levaquin and can be discharged home tomorrow. He has been taken off the oxygen is currently on room air oxygen. The Chest x-ray is showing improvement in the left lung consolidation. Legionella urine antigen is negative. Sputum Gram stain and culture is normal. Serum IgG level is above 1200. Discharge home in a.m. We'll continue to follow.
[2019-08-20 17:16] LABS: Glucose,Whole Blood 207 mg/dL (75-99)
[2019-08-20 19:39] LABS: Glucose,Whole Blood 230 mg/dL (75-99)
[2019-08-20 21:42] VITALS: RESP 18
[2019-08-20] MEDS: LEVOFLOXACIN 250 MG TAB PO SCH (21:44)
[2019-08-21] MEDS: PIPERACILLIN-TAZOBACTAM 3.375 GM in SODIUM CHLORIDE 0.9% 100 ML IVPB SCH ×2 (05:29→11:41)
[2019-08-21 06:01] VITALS: BP 154/73; PULSE 70; TEMP 98.1
[2019-08-21 07:04] LABS: Glucose,Whole Blood 213 mg/dL (75-99)
[2019-08-21] MEDS: INSULIN ASPART (NovoLOG) 100 UNIT/ML VIAL SQ SCH (07:37)
[2019-08-21] MEDS: INSULIN DETEMIR (LEVEMIR) 100 UNIT/ML SYR SQ SCH (07:37)
[2019-08-21] MEDS: TAMSULOSIN 0.4 MG CAP.ER.24H PO SCH (07:38)
[2019-08-21] MEDS: HYDROcodone/APAP 5-325MG 1 EACH TAB PO SCH (07:38)
[2019-08-21] MEDS: FERROUS SULFATE 325 MG TAB PO SCH (07:38)
[2019-08-21] MEDS: SERTRALINE 50 MG TAB PO SCH (07:38)
[2019-08-21] MEDS: amLODIPine 10 MG TAB PO SCH (07:39)
[2019-08-21] MEDS: MULTIVITAMINS, THERA 1 EACH TAB PO SCH (07:39)
[2019-08-21] MEDS: HEPARIN SODIUM,PORCINE 5,000 UNIT/ML 1 ML VIAL SQ SCH (07:39)
[2019-08-21] MEDS: PANTOPRAZOLE 40 MG TABLET PO SCH (07:40)
[2019-08-21] MEDS: ALLOPURINOL 100 MG TAB PO SCH (07:40)
[2019-08-21] MEDS: METOPROLOL SUCCINATE (ER) 100 MG TAB.ER.24H PO SCH (07:40)
[2019-08-21] MEDS: SODIUM BICARBONATE TAB 650 MG TAB PO SCH (07:40)
[2019-08-21] MEDS: METOCLOPRAMIDE 10 MG TAB PO SCH (07:41)
[2019-08-21] MEDS: TACROLIMUS 1 MG CAP PO SCH (07:41)
[2019-08-21] MEDS: methylPREDNISolone SOD SUCCI 40 MG/ML 1 ML VIAL IV SCH (07:41)
[2019-08-21] MEDS: TACROLIMUS 0.5 MG CAP PO SCH (07:42)
[2019-08-21] MEDS: FLUDROCORTISONE 0.1 MG TAB PO SCH (08:05)
[2019-08-21 08:07] LABS: HCT 36.8 % (39.0-53.0); HGB 11.7 gm/dL (13.0-17.5); MCH 31.5 pg (25.0-35.0); MCHC 31.7 g/dL (31.0-37.0); MCV 99.4 fL (80.0-100.0); Macrocytosis Slight; Mean Platelet Volume 9.2; RBC 3.71 m/uL (4.30-5.90); RDW 15.5 % (11.5-15.5); WBC 4.7 k/uL (3.8-10.6)
[2019-08-21 08:13] LABS: Platelet Count 88 k/uL (150-450)
[2019-08-21 08:16] LABS: Albumin 3.2 g/dL (3.5-5.0); Calcium 8.7 mg/dL (8.4-10.2); Potassium 4.5 mmol/L (3.5-5.1); Total Bilirubin 0.9 mg/dL (0.2-1.3)
[2019-08-21] MEDS: IPRATROPIUM-ALBUTEROL 3 ML NEB INHALATION SCH ×2 (08:22→11:45)
[2019-08-21] MEDS ORDERED: VANCOMYCIN 1,500 MG in SODIUM CHLORIDE 0.9% 250 ML IVPB SCH (09:00)
[2019-08-21] MEDS: CALCIUM CARBONATE 500 MG CHEWABLE PO SCH (11:41)
--- NOTE | 2019-08-21 11:59 | P.PN ---
Subjective Progress Note Date: 08/21/19 Principal diagnosis: Acute left lung pneumonia involving left upper and lingular segments. The patient is seen today for very 2019 in follow-up on the regular medical floor. He is currently awake and alert in no acute distress. He is sitting up at the bedside. Denies any worsening shortness of breath, cough or congestion. Maintaining O2 saturations in the upper 90s on room air. He's been afebrile. Hemodynamically stable. Sputum culture reveals no growth. Blood culture reveals no growth. White count 4.7. Hemoglobin 11.7. Sodium 137. Potassium 4.5. Creatinine 1.34. Currently on DuoNeb inhalations, IV Solu-Medrol, antibiotics in the form of Zosyn, Levaquin, vancomycin. Objective - Vital Signs Vital signs: Vital Signs Temp 98.1 F 08/21/19 05:00 Pulse 70 08/21/19 08:30 Resp 18 08/21/19 08:30 BP 154/73 08/21/19 05:00 Pulse Ox 97 08/21/19 05:00 Intake & Output 08/20/19 08/21/19 08/21/19 18:59 06:59 18:59 Intake Total 100 Balance 100 Intake: Intake, IV Titration 100 Amount Piperacillin-Tazobactam 3 100 .375 gm In Sodium Chloride 0.9% 100 ml @ 25 mls/hr IVPB Q8H FOR[facility]LY [facility], [facility] Rx#: [id number] Other: Voiding Method Toilet Toilet # Voids 2 2 # Bowel Movements 1 - Exam Gen. appearance: Very pleasant 68-year-old gentleman, in no acute respiratory distress, on room air. Head exam was generally normal. There was no scleral icterus or corneal arcus. Mucous membranes were moist. Neck was supple and without jugular venous distension, thyromegaly, or carotid bruits. Carotids were easily palpable bilaterally. There was no adenopathy. Examination of the lungs shows a clamshell incision over the anterior chest related to transplantation. The patient has crackles in the left upper lobe in the left midlung area anteriorly and posteriorly. Cardiac exam revealed the PMI to be normally situated and sized. The rhythm was regular and no extrasystoles were noted during several minutes of auscultation. The first and second heart sounds were normal and physiologic splitting of the second heart sound was noted. There were no murmurs, rubs, clicks, or gallops. Abdominal exam revealed normal bowel sounds. The abdomen was soft, non-tender, and without masses, organomegaly, or appreciable enlargement of the abdominal aorta. The patient has an abdominal wall hernia on examination Examination of the extremities revealed easily palpable radial, femoral and pedal pulses. There was no cyanosis, clubbing or edema. Examination of the skin revealed no evidence of significant rashes, suspicious appearing nevi or other concerning lesions. - Labs CBC & Chem 7: 08/21/19 07:28 08/21/19 07:28 Labs: Abnormal Lab Results - Last 24 Hours (Table) 08/20/19 08/20/19 08/21/19 Range/Units 17:14 19:37 07:03 RBC (4.30-5.90) m/uL Hgb (13.0-17.5) gm/dL Hct (39.0-53.0) % Plt Count (150-450) k/uL BUN (9-20) mg/dL Creatinine (0.66-1.25) mg/dL Glucose (74-99) mg/dL POC Glucose (mg/dL) 207 H 230 H 213 H (75-99) mg/dL ALT (4-49) U/L Total Protein (6.3-8.2) g/dL Albumin (3.5-5.0) g/dL 08/21/19 08/21/19 Range/Units 07:28 07:28 RBC 3.71 L (4.30-5.90) m/uL Hgb 11.7 L (13.0-17.5) gm/dL Hct 36.8 L (39.0-53.0) % Plt Count 88 L (150-450) k/uL BUN 37 H (9-20) mg/dL Creatinine 1.34 H (0.66-1.25) mg/dL Glucose 208 H (74-99) mg/dL POC Glucose (mg/dL) (75-99) mg/dL ALT 52 H (4-49) U/L Total Protein 6.0 L (6.3-8.2) g/dL Albumin 3.2 L (3.5-5.0) g/dL Microbiology - Last 24 Hours (Table) 08/16/19 12:25 Blood Culture - Preliminary Blood No Growth after 96 hours 08/18/19 08:00 Gram Stain - Final Sputum Sputum Culture - Final Assessment and Plan Assessment: 1 acute left lung pneumonia involving the left upper lobe and lingular segment and the patient has dense consolidation associated with development of an acute hypoxic respiratory failure, acute shortness of breath and some limited hemoptysis. He is having also some pleuritic chest pain along the left side of the chest. The patient was covered with several antibiotics and he continues to improve. Currently is on room air oxygen. Chest x-ray was showing clearing of the left lung pneumonia. 2 Acute hypoxic respiratory failure secondary to above , recovered and on room air. 3 acute hemoptysis secondary to above, not active for now 4 acute shortness of breath secondary to above , recovered 5 bilateral lung transplantation. The patient estimates that the patient 2009 for COPD/fibrosis 6 chronic stage III kidney disease 7 diabetes mellitus2 8 chronic back pain 9 Hypogammaglobulinanemia on IVIG in the outpatient setting Plan The patient was seen and evaluated by Dr. Suarez. He is cleared for discharge from the pulmonary standpoint. Complete a course of Levaquin. Follow-up in our office in 1-2 weeks' time. We'll repeat a chest x-ray then. He is encouraged to call sooner if any recurrence of symptoms or other questions or concerns. I, the cosigning physician, performed a history & physical examination of the patient. Lungs sounds with few scattered rhonchi mainly in the left lung. Maintaining good O2 saturations in the 90s on room air. I discussed the assessment and plan of care with my nurse practitioner, Adina Khanna. I attest to the above note as dictated by her.
--- NOTE | 2019-08-21 13:21 | P.DS ---
Providers Date of admission: 08/16/19 13:34 Attending physician: Bharathi Rice Consults: 08/16/19 12:25 Consult Physician Urgent Consulting Provider: Tonya Syed Consult Reason/Comments: Dyspnea Do you want consulting provider notified?: Already Contacted Primary care physician: Louie Alaniz [place] [facility] Course: Progress Note Date: 08/20/19 This is a 68-year-old male patient of Dr. Louie Alaniz with past medical history of bilateral lung transplant in 2008 at [facility] with underlying COPD, pulmonary fibrosis, hypogammaglobulinemia on IVIG replacement, chronic kidney disease stage III, diabetes mellitus type 2, osteoarthritis of spine with degenerative disc disease, gastroesophageal reflux disease, hypertension. Patient gives history of increasing shortness of breath for the past 3 days with cough and sputum production. Mild blood noted in his sputum. Patient states he has also had a loss of appetite and not eat well for the past 3 days. Patient came into [facility] emergency center for evaluation. Pulse ox was 94%,, vital signs stable. Sodium 131, CO2 19, BUN 53 and creatinine 2.10, blood sugar 155. Lactic acid 1.3, influenza testing negative. Total bilirubin 1.4, AST 59, ALT 73 and alkaline phosphatase 104. INR 1.1. Troponin 0.015. ProBNP 6250. IgG 1250. Chest x-ray shows postsurgical changes with prior lung transplantation. Nodular opacities at the left mid lung could represent pneumonia or neoplasm. Interstitial changes in the periphery of the right lung of unknown chronicity. Repeat chest x-ray this morning reveals improving left perihilar infiltrate which can be compatible with pneumonia. Small amount of fluid or pleural thickening along the right lateral margin. Patient fitted to the MedSurg floor and consult with Dr. Syed. 08/18: Patient states that his breathing status is a little better. Solu-Medrol will be decreased to frequency of every 12 hours. He continues to have a cough with sputum valentino green color. He states he is not eating very much but is drinking okay. Continue IV fluids for 1 more day. Patient is afebrile, heart rate 77, blood pressure 130/72, pulse ox 99% on 2 L nasal cannula. Repeat blood work reveals sodium 136, potassium 3.8, chloride 103, CO2 21. Lung sounds improving. Most likely plan for discharge tomorrow. 08/19: Patient's breathing status is slowly improving. He has less shortness of breath. He has cough with minimal sputum production. He is currently on Zosyn Levaquin and vancomycin. Pulse ox is 98% on 3 L nasal cannula. Heart rate 80. Patient afebrile, blood pressure 151/78, heart rate 80. Creatinine 1.35. Blood sugars running between 141 and 293. Legionella testing negative. Sputum culture is in progress. Patient is complaining of diarrhea occurring every 1-3 hours. This is to be monitored. He has had no nausea or vomiting, no abdominal pain. 08/19: Patient is afebrile, heart rate 76, blood pressure 151/73, pulse ox 99% on 2 L nasal cannula. Repeat creatinine 1.22, blood sugar running between 98 and 232. Patient is continued on Levaquin, Zosyn and vancomycin as well as Solu- Medrol 40 mg every 12 hours. IV fluids will be discontinued. Anticipate discharge home tomorrow. 08/21: Patient is feeling much better afebrile and pulse ox is much better his infection is improved kidney function is a lot better, patient is asking to go home, his blood sugar still fluctuating slightly bit up will be switched to oral Levaquin and continue azithromycin and Bactrim for his lung transplant prophylaxis and will continue tapering dose of prednisone patient be able to be discharged home today. Review of Systems Constitutional: Reports anorexia, Reports chronic pain, Reports fatigue, Reports lethargy, Reports malaise, Reports poor appetite, Reports weight loss, Denies fever Eyes: denies blurred vision, denies pain Ears, nose, mouth and throat: Denies dysphagia, Denies headache, Denies nasal congestion, Denies nasal discharge, Denies sore throat, Denies vertigo Cardiovascular: Reports decreased exercise tolerance, denies dyspnea on exertion, Reports edema, denies shortness of breath improving, Denies chest pain, Denies leg edema, Denies lightheadedness, Denies syncope Respiratory: Reports cough, Reports cough with sputum, denies dyspnea, denies hemoptysis, Reports respiratory infections, denies wheezing, Denies excessive sputum Gastrointestinal: Reports loss of appetite, Denies abdominal pain, reports diarrhea, Denies nausea, Denies vomiting Genitourinary: Denies dysuria, Denies urinary frequency, Denies urinary retention Musculoskeletal: Reports low back pain, Reports muscle weakness, Denies frequent falls, Denies myalgias Integumentary: Denies pruritus, Denies rash, Denies wounds Neurological: Denies change in mentation, Denies change in speech, Denies numbness, Denies weakness Psychiatric: Denies anxiety, Denies depression Endocrine: Denies fatigue, Denies weight change Physical exam: Gen: This is a 68-year-old male. Patient is sleeping flat in bed and appears to be in no acute distress. Patient awakens easily to verbal stimuli. HEENT: Head is atraumatic, normocephalic. Pupils equal, round. Sclerae is anicteric. NECK: Supple. No JVD. No lymphadenopathy. No thyromegaly. LUNGS: Lungs are clear to auscultation. No intercostal retractions. HEART: Regular rate and rhythm. No murmur. ABDOMEN: Soft. Bowel sounds are present. No masses. No tenderness. EXTREMITIES: No pedal edema. No calf tenderness. NEUROLOGICAL: Patient is awake, alert and oriented x3. Cranial nerves 2 through 12 are grossly intact. Assessment and Plan Plan: 1. Acute hypoxic respiratory failure secondary to left lung pneumonia, probable gram-negative pneumonia. Patient has been seen by Dr. Syed. Sputum for Gram stain and culture, blood culture in progress. Legionella pending. Continue Levaquin, Zosyn and vancomycin. DuoNeb treatments 4 times daily every 4 hours as needed, Solu-Medrol 40 mg IV every 12 hours. 2. History of bilateral lung transplant in 2008 at [facility]. Continue Prograf 2.5 mg twice daily. Patient is usually on prednisone 5 mg daily and Bactrim Wednesday which are on hold. 3. Hypertension. Continue Norvasc 10 mg daily Toprol-XL 100 mg daily. 3. Hypogammaglobulinemia on IVIG replacement therapy as an outpatient. IgG level within normal limits. 4. Diabetes mellitus type 2, insulin requiring. Continue Levemir 50 units every morning, NovoLog scale before meals and at bedtime. 5. Acute kidney injury. Continue IV fluids, monitor renal function. Lisinopril/hydrochlorothiazide on hold. 6. Chronic kidney disease stage III. Continue sodium bicarb 1300 mg twice daily, calcium carbonate 500 mg Wednesday and Wednesday. 7. Benign prostatic hypertrophy. Continue Flomax 0.4 mg daily. 8. Gastroesophageal reflux disease and GI prophylaxis. Protonix. 9. Recurrent depression. Continue Zoloft 50 mg daily. 10. DVT prophylaxis. Heparin subcu. Patient is very stable to be discharged home today. Patient Condition at Discharge: Serious Plan - Discharge Summary Discharge Rx Participant: No New Discharge Prescriptions: New Ipratropium-Albuterol Nebulize [Duoneb 0.5 mg-3 mg/3 ml Soln] 3 ml INHALATION RT-QID ml Levofloxacin [Levaquin] 250 mg PO Q24H #5 tab Continue Metoprolol Succinate (ER) [Toprol XL] 100 mg PO QAM Sulfamethox-Tmp 800-160Mg [Bactrim DS 800-160 mg] 800 mg PO MOWEFR Tacrolimus [Prograf] 2 mg PO BID Fludrocortisone [Florinef] 0.1 mg PO QAM Ergocalciferol (Vitamin D2) [Drisdol] 50,000 units PO Q15D Alendronate Sodium [Fosamax] 70 mg PO WE Sodium Bicarbonate Tab 1,300 mg PO BID Insulin Detemir (Levemir) [Levemir] 50 unit SQ QAM Azithromycin [Zithromax] 250 mg PO MOWEFR HYDROcodone/APAP 5-325MG [Sasser 5-325] 3 tab PO TID Multivitamins, Thera [Multivitamin (formulary)] 1 tab PO DAILY Ferrous Sulfate [Iron (65 MG Elemental)] 325 mg PO BID Allopurinol [Zyloprim] 100 mg PO DAILY amLODIPine [Norvasc] 10 mg PO DAILY Metoclopramide [Reglan] 10 mg PO QAM Sertraline [Zoloft] 50 mg PO DAILY Omeprazole [PriLOSEC] 40 mg PO DAILY Lisinopril-Hctz 10-12.5 mg [Zestoretic 10-12.5] 1 tab PO DAILY Tacrolimus [Prograf] 0.5 mg PO BID Calcium Carbonate [Calcium] 600 mg PO MOFR Tamsulosin HCl [Flomax] 0.4 mg PO DAILY Sennosides [Senna] 8.6 mg PO DAILY PRN PRN Reason: Constipation predniSONE 5 mg PO DAILY #0 Discharge Medication List Alendronate Sodium [Fosamax] 70 mg PO WE 11/06/13 [History] Ergocalciferol (Vitamin D2) [Drisdol] 50,000 units PO Q15D 11/06/13 [History] Fludrocortisone [Florinef] 0.1 mg PO QAM 11/06/13 [History] Metoprolol Succinate (ER) [Toprol XL] 100 mg PO QAM 11/06/13 [History] Sulfamethox-Tmp 800-160Mg [Bactrim DS 800-160 mg] 800 mg PO MOWEFR 11/06/13 [His tory] Tacrolimus [Prograf] 2 mg PO BID 11/06/13 [History] Sodium Bicarbonate Tab 1,300 mg PO BID 11/07/13 [History] Insulin Detemir (Levemir) [Levemir] 50 unit SQ QAM 01/02/14 [History] Azithromycin [Zithromax] 250 mg PO MOWEFR 11/05/15 [History] HYDROcodone/APAP 5-325MG [Sasser 5-325] 3 tab PO TID 07/23/16 [History] Multivitamins, Thera [Multivitamin (formulary)] 1 tab PO DAILY 07/23/16 [History] Ferrous Sulfate [Iron (65 MG Elemental)] 325 mg PO BID 09/29/16 [History] Allopurinol [Zyloprim] 100 mg PO DAILY 05/06/17 [History] Metoclopramide [Reglan] 10 mg PO QAM 05/06/17 [History] amLODIPine [Norvasc] 10 mg PO DAILY 05/06/17 [History] Omeprazole [PriLOSEC] 40 mg PO DAILY 03/02/18 [History] Sertraline [Zoloft] 50 mg PO DAILY 03/02/18 [History] Lisinopril-Hctz 10-12.5 mg [Zestoretic 10-12.5] 1 tab PO DAILY 07/11/19 [History] Calcium Carbonate [Calcium] 600 mg PO MOFR 08/16/19 [History] Sennosides [Senna] 8.6 mg PO DAILY PRN 08/16/19 [History] Tacrolimus [Prograf] 0.5 mg PO BID 08/16/19 [History] Tamsulosin HCl [Flomax] 0.4 mg PO DAILY 08/16/19 [History] Ipratropium-Albuterol Nebulize [Duoneb 0.5 mg-3 mg/3 ml Soln] 3 ml INHALATION RT-QID ml 08/21/19 [Rx] Levofloxacin [Levaquin] 250 mg PO Q24H #5 tab 08/21/19 [Rx] predniSONE 5 mg PO DAILY #0 08/21/19 [Rx] Follow up Appointment(s)/Referral(s): Louie Alaniz MD [Primary Care Provider] - 08/28/19 1:00 pm Tonya Syed MD [STAFF PHYSICIAN] - 1 Week (office is closed for lunch.patient will have to call and schedule own appt.) Patient Instructions/Handouts: Levofloxacin (By mouth), Viral Pneumonia (DC) Activity/Diet/Wound Care/Special Instructions: activity limited until seen by DR. Morin as tolerated Discharge Disposition: HOME SELF-CARE
[2019-08-27] MEDS ORDERED: ERGOCALCIFEROL 50,000 UNIT CAP PO SCH (09:00)
== END 2019-08-21 13:50 | disposition home or self-care (01) | DRG 177 ==
LOC: EC 11:29 → 6NMEDSUR 13:34 → 5NMEDONC 17:15
PROVIDERS: ADMIT Internal Medicine; ATTEND Internal Medicine
DX: J15.6 Pneumonia due to other Gram-negative bacteria (principal); J96.01 Acute respiratory failure with hypoxia; Z94.2 Lung transplant status; N17.9 Acute kidney failure, unspecified; D80.1 Nonfamilial hypogammaglobulinemia; F33.9 Major depressive disorder, recurrent, unspecified; R04.2 Hemoptysis; N18.3 Chronic kidney disease, stage 3 (moderate); E11.22 Type 2 diabetes mellitus with diabetic chronic kidney disease; I12.9 Hypertensive chronic kidney disease with stage 1 through stage 4 chronic kidney disease, or unspecified chronic kidney disease; N40.0 Benign prostatic hyperplasia without lower urinary tract symptoms; F41.9 Anxiety disorder, unspecified; K21.9 Gastro-esophageal reflux disease without esophagitis; G89.29 Other chronic pain; M47.9 Spondylosis, unspecified; R19.7 Diarrhea, unspecified; M19.90 Unspecified osteoarthritis, unspecified site; Z79.83 Long term (current) use of bisphosphonates; Z79.2 Long term (current) use of antibiotics; Z79.52 Long term (current) use of systemic steroids; Z79.4 Long term (current) use of insulin; Z79.891 Long term (current) use of opiate analgesic; Z79.899 Other long term (current) drug therapy; Z87.01 Personal history of pneumonia (recurrent); Z87.891 Personal history of nicotine dependence; Z87.09 Personal history of other diseases of the respiratory system; Z98.890 Other specified postprocedural states; Z98.42 Cataract extraction status, left eye; Z98.41 Cataract extraction status, right eye; Z88.6 Allergy status to analgesic agent; Z88.1 Allergy status to other antibiotic agents; Z82.5 Family history of asthma and other chronic lower respiratory diseases
CPT/HCPCS: 36415; 71046; 80048; 80053; 80202; 82565; 82784; 83605; 83880; 84484; 85025; 85027; 85610; 85730; 87040; 87070; 87205; 87449; 87502; 93005; 94640; 94760; 96365; 96366; 96367; 96368; 96375; 99285

== ENCOUNTER → 2019-09-12 | Outpatient (CLI) | payer MEDICARE, OTHER ==
[~2019-09-12] MED LIST changes: -DEXTROSE 5% IN WATER 250 ML IV NR; +DEXTROSE 5% IN WATER 250 ML IV SCH; -IMMUNE GLOBULIN (GAMMAGARD) 10 GM in EMPTY BAG 1 BAG IV ONE; -IMMUNE GLOBULIN (GAMMAGARD) 20 GM in EMPTY BAG 1 BAG IV ONE; +IMMUNE GLOBULIN (GAMMAGARD) 30 GM in EMPTY BAG 1 BAG IV ONE
[2019-09-12 10:57] VITALS: RESP 16; TEMP 98.2
[2019-09-12 12:01] LABS: Basophils % (A) 0 %; Eosinophils # (A) 0.2 k/uL (0-0.7); Eosinophils % (A) 3 %; HGB 11.1 gm/dL (13.0-17.5); Lymphocytes % (A) 19 %; MCHC 31.7 g/dL (31.0-37.0); Macrocytosis Slight; Mean Platelet Volume 8.7; Monocytes # (A) 0.5 k/uL (0-1.0); Monocytes % (A) 10 %; Neutrophils # (A) 3.3 k/uL (1.3-7.7); Neutrophils % (A) 65 %; RBC 3.47 m/uL (4.30-5.90); RDW 15.5 % (11.5-15.5)
[2019-09-12 12:09] VITALS: BP 147/66; PULSE 69
[2019-09-12 12:11] LABS: Platelet Count 81 k/uL (150-450)
== END | disposition home or self-care (01) ==
LOC: PROCWHC3 10:12
PROVIDERS: ATTEND Internal Medicine
DX: D80.1 Nonfamilial hypogammaglobulinemia (principal); Z94.2 Lung transplant status
CPT/HCPCS: 80197; 83735; 85025; 96365; 96366; 96375

== ENCOUNTER → 2019-10-10 | Outpatient (CLI) | payer MEDICARE, OTHER ==
[~2019-10-10] MED LIST changes: +ACETAMINOPHEN TAB 325 MG TAB PO NR; -ACETAMINOPHEN TAB 325 MG TAB PO ONE; +IMMUNE GLOBULIN (GAMMAGARD) 30 GM in EMPTY BAG 1 BAG IV NR; -IMMUNE GLOBULIN (GAMMAGARD) 30 GM in EMPTY BAG 1 BAG IV ONE; +diphenhydrAMINE 50 MG/ML 1 ML VIAL IVP NR; -diphenhydrAMINE 50 MG/ML 1 ML VIAL IVP ONE
[2019-10-10 10:36] VITALS: TEMP 97.8
[2019-10-10 11:22] LABS: Albumin 4.2 g/dL (3.5-5.0); Calcium 8.9 mg/dL (8.4-10.2); Magnesium 1.7 mg/dL (1.6-2.3); Potassium 4.4 mmol/L (3.5-5.1); Total Bilirubin 0.5 mg/dL (0.2-1.3); Total Protein 7.1 g/dL (6.3-8.2)
[2019-10-10 12:21] VITALS: BP 137/70; PULSE 63; RESP 18
[2019-10-11 13:05] LABS: CMV DNA Qualitative Not detected (Not detected); CMV DNA, Quantitative <50 IU/mL (<50); LOG CMV Copies/mL <126 Copies/mL (<126); Log Cytomegalovirus <1.70 (<1.70)
== END | disposition home or self-care (01) ==
LOC: PROCWHC3 09:55
PROVIDERS: ATTEND Internal Medicine
DX: D80.1 Nonfamilial hypogammaglobulinemia (principal); Z94.2 Lung transplant status
CPT/HCPCS: 80053; 80197; 83735; 87497; 96365; 96366; 96375; 36415; J1200; J1569

== ENCOUNTER → 2019-11-07 | Outpatient (CLI) | payer MEDICARE, OTHER ==
[2019-11-07 10:34] VITALS: TEMP 98.5
[2019-11-07 11:25] VITALS: RESP 16
[2019-11-07 11:39] LABS: Anisocytosis Slight; Basophils % (A) 0 %; Eosinophils # (A) 0.2 k/uL (0-0.7); Eosinophils % (A) 3 %; HCT 39.9 % (39.0-53.0); HGB 12.5 gm/dL (13.0-17.5); Lymphocytes # (A) 1.2 k/uL (1.0-4.8); Lymphocytes % (A) 15 %; MCH 31.5 pg (25.0-35.0); MCHC 31.3 g/dL (31.0-37.0); MCV 100.6 fL (80.0-100.0); Macrocytosis Slight; Mean Platelet Volume 8.6; Monocytes # (A) 0.9 k/uL (0-1.0); Monocytes % (A) 11 %; Neutrophils # (A) 5.8 k/uL (1.3-7.7); Neutrophils % (A) 69 %; RBC 3.97 m/uL (4.30-5.90); RDW 16.1 % (11.5-15.5); WBC 8.4 k/uL (3.8-10.6)
[2019-11-07 11:43] LABS: Platelet Count 95 k/uL (150-450)
[2019-11-07 11:58] VITALS: BP 153/70; PULSE 64
[2019-11-08 11:45] LABS: CMV DNA Qualitative Not detected (Not detected); CMV DNA, Quantitative <50 IU/mL (<50); LOG CMV Copies/mL <126 Copies/mL (<126); Log Cytomegalovirus <1.70 (<1.70)
== END | disposition home or self-care (01) ==
LOC: PROCWHC3 09:49
PROVIDERS: ATTEND Internal Medicine
DX: D80.1 Nonfamilial hypogammaglobulinemia (principal); Z94.2 Lung transplant status
CPT/HCPCS: 80197; 83735; 85025; 87497; 96365; 96366; 96375; 36415; J1200; J1569

== ENCOUNTER → 2019-11-24 | Outpatient (CLI) | payer MEDICARE, OTHER ==
--- NOTE | 2019-11-24 10:51 | FL ---
EXAMINATION TYPE: FL UGI air DATE OF EXAM: 11/24/2019 COMPARISON: Correlation CT 05/06/2017 HISTORY: 69-year-old male with abdominal distention, loss of appetite, early satiety, history of Niss en fundoplication 11 years ago. Also, prior lung transplant. TECHNIQUE: A double contrast UGI study is performed. Total fluoroscopy time: 3.23 minutes. Total images: 53 FINDINGS: Clamshell median sternotomy fixation is demonstrated. There is silent aspiration noted into the trachea. Moderate tertiary peristaltic contractions are demonstrated. Several tiny less than 5 mm circumscribe d filling defects along the upper third thoracic esophagus could represent air bubbles from the effer vescent granules or tiny polyps. No large irregular filling defect is identified. Normal course and caliber of the thoracic esophagus. No fixed narrowing. There is a small hiatal hernia. Limited distention of the stomach. No obvious large filling defect is identified or ulceration. Only minimal contrast has progressed into the duodenal C-loop. The duodenal bulb shows no abnormality . Moderate to severe gastroesophageal reflux is demonstrated when the patient is supine with Valsalva a nd positional maneuvers. The refluxed contrast stagnates in the esophagus when supine. IMPRESSION: 1. Changes of prior lung transplantation. 2. Note silent aspiration into the trachea. Recommend speech pathology referral for further evaluatio n. 3. Presbyesophagus. Contrast stagnates in the esophagus when the patient is supine. 4. Several tiny, less than 5 mm circumscribed filling defect in the upper third thoracic esophagus co uld represent air bubbles from the effervescent granules or tiny polyps. Direct visualization if wanda cated. 5. Small hiatal hernia (despite history of prior Reg fundoplication) with moderate to severe gastr oesophageal reflux. 6. The patient had difficulty retaining air within the stomach. This results in limited distention of the stomach. No obvious filling defect. Only minimal contrast progressed into the duodenum. Given mj paredes's symptoms, consider gastroparesis.
== END | disposition home or self-care (01) ==
LOC: RADUSWWP 08:28
PROVIDERS: ATTEND Surgery
DX: K22.8 Other specified diseases of esophagus (principal); R93.3 Abnormal findings on diagnostic imaging of other parts of digestive tract; K44.9 Diaphragmatic hernia without obstruction or gangrene; K21.9 Gastro-esophageal reflux disease without esophagitis; K31.89 Other diseases of stomach and duodenum; Z94.2 Lung transplant status; R68.81 Early satiety
CPT/HCPCS: 74246

== ENCOUNTER → 2019-12-14 | Outpatient (CLI) | payer MEDICARE, OTHER ==
--- NOTE | 2019-12-14 11:12 | FL ---
MODIFIED SWALLOW / DEGLUTITION STUDY DATE OF EXAM: 12/14/2019 CLINICAL HISTORY: 69-year-old male R13.10, dysphagia, bilateral lung transplant 11 years ago, history of prior tracheostomy and PEG tube placement now with choking episodes. TECHNIQUE: Deglutition study is performed utilizing thin liquid barium, honey and nectar thick liqui d barium, barium thick applesauce, and barium coated cracker. Total fluoroscopy time: 1 minute 43 seconds. Total images: None. Real-time fluoroscopy support was provided to speech pathology. COMPARISON: None. FINDINGS: The patient is edentulous. The oral and pharyngeal phases show satisfactory initiation and propagatio n with all modalities tested. However there is limited epiglottic inversion, absent to minimal at ti mes. Moderate residuals are seen within the vallecula, piriform sinus, and at times, along the movie shot camera operator ior pharyngeal wall. There is no penetration or aspiration identified. IMPRESSION: No penetration or aspiration identified. Moderate residuals. Limited epiglottic inversion at times. Please refer to speech therapist notes for further details if necessary.
== END | disposition home or self-care (01) ==
LOC: RADFLMAIN 09:38
PROVIDERS: ATTEND Surgery
DX: R13.10 Dysphagia, unspecified (principal)
CPT/HCPCS: 74230

== ENCOUNTER → 2020-01-31 | Outpatient (CLI) | payer MEDICARE, OTHER | END | disposition home or self-care (01) | LOC: LABWHC1 13:30 | PROVIDERS: ATTEND Psychiatry & Neurology Neurology | DX: R13.10 Dysphagia, unspecified (principal) | CPT/HCPCS: 36415 ==

== ENCOUNTER → 2020-02-16 | Outpatient (CLI) | payer MEDICARE, OTHER ==
[~2020-02-16] MED LIST changes: -ACETAMINOPHEN TAB 325 MG TAB PO NR; -DEXTROSE 5% IN WATER 250 ML IV SCH; -IMMUNE GLOBULIN (GAMMAGARD) 30 GM in EMPTY BAG 1 BAG IV NR; +IODINE/POTASS IOD (LUGOLS) BOTTLE TOPICAL ONE; -SODIUM CHLORIDE 0.9% 500 ML 500 ML in EMPTY BAG 1 BAG IV PRN; -diphenhydrAMINE 50 MG/ML 1 ML VIAL IVP NR
--- NOTE | 2020-02-20 07:02 | NM ---
EXAMINATION TYPE: NM DatScan Brain SPECT DATE OF EXAM: 02/16/2020 COMPARISON: NONE HISTORY: Tremors. TECHNIQUE: 10 drops of Lugol's solution was administered 1 hour prior to injection as a thyroid bloc jonathan agent. After the administration of 4.5 mCi I-123 Ioflupane DaTscan. Images obtained [address] injection. SPECT images of the brain were acquired with axial and coronal reconstructions. FINDINGS: The DaTSCAN demonstrates normal uptake of tracer throughout the striata. Consequently there is no evidence of loss of the pre-synaptic dopaminergic terminals on this investig ation. IMPRESSION: This normal appearance is against a diagnosis of idiopathic Parkinson?s disease (PD) or a Parkinsonia n syndrome (PS) and is seen in healthy individuals and also patients with essential tremor (ET), drug induced parkinsonism, and vascular pseudo-parkinsonism.
== END | disposition home or self-care (01) ==
LOC: RADNMMAIN 10:09
PROVIDERS: ATTEND Psychiatry & Neurology Neurology
DX: G25.0 Essential tremor (principal); G21.19 Other drug induced secondary parkinsonism; G21.4 Vascular parkinsonism
CPT/HCPCS: 78803; A9584

== ENCOUNTER 2020-08-05 11:05 | Inpatient (IN) | payer MEDICARE, OTHER ==
[2020-08-05] MEDS ORDERED: PANTOPRAZOLE 40 MG/10 ML VIAL IVP STA (11:43)
[2020-08-05] MEDS ORDERED: SODIUM CHLORIDE 0.9% 1,000 ML IV STA (11:43)
--- NOTE | 2020-08-05 11:54 | ED ---
General Adult HPI - General Chief complaint: Abdominal Pain Stated complaint: hemoptysis, abd pain Time Seen by Provider: 08/05/20 11:28 Source: patient, RN notes reviewed, Caregiver Mode of arrival: ambulatory Limitations: no limitations - History of Present Illness Initial comments: Patient is a pleasant 69-year-old male presenting to the emergency Department with abdominal discomfort and distention. Onset of symptoms was close to a month ago, symptoms have worsened over the past couple of days with discomfort. Patient has also been vomiting for the past few days, up to 2 or 3 times per day, usually with oral intake. Loss of appetite. Patient has occasional cough and believes he has had some episodes of hemoptysis as well. No dyspnea. Jamie paredes has some discomfort of his left lower chest as well. Patient does not recall any trauma. - Related Data Home Medications Medication Instructions Recorded Confirmed Alendronate Sodium [Fosamax] 70 mg PO WE 11/06/13 08/05/20 Ergocalciferol (Vitamin D2) 50,000 units PO Q15D 11/06/13 08/05/20 [Drisdol] Fludrocortisone [Florinef] 0.1 mg PO QAM 11/06/13 08/05/20 Metoprolol Succinate (ER) [Toprol 100 mg PO QAM 11/06/13 08/05/20 XL] Sulfamethox-Tmp 800-160Mg [Bactrim 1 tab PO MOWEFR 11/06/13 08/05/20 DS 800-160 mg] Tacrolimus [Prograf] 2 mg PO BID 11/06/13 08/05/20 Insulin Detemir (Levemir) [Levemir] 40 unit SQ HS 01/02/14 08/05/20 Azithromycin [Zithromax] 250 mg PO MOWEFR 11/05/15 08/05/20 Multivitamins, Thera [Multivitamin 1 tab PO DAILY 07/23/16 08/05/20 (formulary)] Ferrous Sulfate [Iron (65 MG 325 mg PO DAILY 09/29/16 08/05/20 Elemental)] Allopurinol [Zyloprim] 100 mg PO DAILY 05/06/17 08/05/20 Metoclopramide [Reglan] 10 mg PO QAM 05/06/17 08/05/20 amLODIPine [Norvasc] 10 mg PO DAILY 05/06/17 08/05/20 Omeprazole [PriLOSEC] 40 mg PO DAILY 03/02/18 08/05/20 Sertraline [Zoloft] 50 mg PO DAILY 03/02/18 08/05/20 Lisinopril-Hctz 10-12.5 mg 1 tab PO DAILY 07/11/19 08/05/20 [Zestoretic 10-12.5] Tacrolimus [Prograf] 0.5 mg PO BID 08/16/19 08/05/20 Tamsulosin HCl [Flomax] 0.4 mg PO DAILY 08/16/19 08/05/20 Atorvastatin [Lipitor] 10 mg PO DAILY 05/30/20 08/05/20 Potassium Citrate [Urocit-K] 10 meq PO TID 05/30/20 08/05/20 HYDROcodone/APAP 7.5-325MG [Stacy 1 tab PO TID PRN 08/05/20 08/05/20 7.5-325] Sodium Bicarbonate 650 mg PO BID 08/05/20 08/05/20 Previous Rx's Medication Instructions Recorded predniSONE 5 mg PO DAILY #0 08/21/19 Allergies Allergy/AdvReac Type Severity Reaction Status Date / Time clarithromycin [From Biaxin] AdvReac instructed Verified 08/05/20 12:31 not to take r/t lung transplant ibuprofen [From Motrin] AdvReac Abdominal Verified 08/05/20 12:31 Pain Review of Systems ROS Statement: Those systems with pertinent positive or pertinent negative responses have been documented in the HPI. ROS Other: All systems not noted in ROS Statement are negative. Constitutional: Denies: fever Eyes: Denies: eye pain ENT: Denies: ear pain Respiratory: Reports: as per HPI, cough Cardiovascular: Reports: as per HPI Endocrine: Denies: fatigue Gastrointestinal: Reports: as per HPI, abdominal pain Genitourinary: Denies: dysuria Musculoskeletal: Denies: back pain Skin: Denies: rash Past Medical History Past Medical History: COPD, Diabetes Mellitus, GERD/Reflux, Osteoarthritis (OA), Pneumonia, Prostate Disorder, Renal Disease, Respiratory Disorder Additional Past Medical History / Comment(s): History of COPD and pulmonary fibrosis. The patient underwent bilateral lung transplantation and 2008. He has diabetes, chronic arthritis with back pain, degenerative disc disease, chronic stage III kidney disease, chronic hypogammaglobulinemia and the patient is receiving IVIG treatment on outpatient basis and the last treatment was in June 2019 History of Any Multi-Drug Resistant Organisms: None Reported Past Surgical History: Heart Catheterization, Hernia Repair Additional Past Surgical History / Comment(s): RT & LT CATARACT REMOVED/COLONOSCOPY/BILATERAL LUNG TRANSPLANT 20082013 HERNIA REPAIR UMBILICAL, LEFT INGUINAL AND FEMEROL. TURP - 2015 Past Anesthesia/Blood Transfusion Reactions: No Reported Reaction Past Psychological History: Anxiety, Depression Smoking Status: Former smoker - Past Family History Mother Family Medical History: No Reported History Additional Family Medical History / Comment(s): Mother at age 73 from asthma or COPD. Father Additional Family Medical History / Comment(s): Father at age 68 from asthma. Brother(s) Additional Family Medical History / Comment(s): Patient states he has 6 brothers and 5 sisters and is not sure of their medical history. Some have passed. Patient has one daughter with no major medical problems. General Exam Limitations: no limitations General appearance: alert, in no apparent distress Head exam: Present: normocephalic Eye exam: Present: normal appearance ENT exam: Present: normal exam Neck exam: Present: normal inspection Respiratory exam: Present: normal lung sounds bilaterally, chest wall tenderness (Left lower anterior ribs. There is mild ecchymosis in the area of tenderness) Cardiovascular Exam: Present: regular rate, normal rhythm, normal heart sounds Expanded Peripheral pulses: 2+: Dorsalis Pedis (R), Dorsalis Pedis (L) GI/Abdominal exam: Present: soft, distended, tenderness (Mild diffuse tendern ess), diminished bowel sounds. Absent: guarding, rebound, rigid, pulsatile mass Extremities exam: Present: normal inspection. Absent: pedal edema, calf tenderness Neurological exam: Present: alert Psychiatric exam: Present: normal affect, normal mood Skin exam: Present: normal color Course Vital Signs 08/05/20 11:19 Temperature 97.5 F L Pulse Rate 70 Respiratory 20 Rate Blood Pressure 135/65 O2 Sat by Pulse 94 L Oximetry EKG Findings - EKG Comments: EKG Findings:: Normal sinus rhythm at 63. UT 162. QRS 156. QTc 464. QTC 474. Right bundle branch block. Right axis. Nonspecific T waves. Medical Decision Making - Medical Decision Making Patient reevaluated. Patient and family updated. Case discussed with Dr. Whyte, who will admit the brain for Dr. Alaniz, sonia. - Lab Data Result diagrams: 08/05/20 12:00 08/05/20 12:00 Lab Results 08/05/20 08/05/20 08/05/20 Range/Units 12:00 12:00 12:00 WBC 6.2 (3.8-10.6) k/uL RBC 3.77 L (4.30-5.90) m/uL Hgb 12.4 L (13.0-17.5) gm/dL Hct 38.2 L (39.0-53.0) % MCV 101.5 H (80.0-100.0) fL MCH 32.8 (25.0-35.0) pg MCHC 32.3 (31.0-37.0) g/dL RDW 15.1 (11.5-15.5) % Plt Count 100 L (150-450) k/uL MPV 8.7 Neutrophils % 78 % Lymphocytes % 8 % Monocytes % 9 % Eosinophils % 2 % Basophils % 1 % Neutrophils # 4.9 (1.3-7.7) k/uL Lymphocytes # 0.5 L (1.0-4.8) k/uL Monocytes # 0.6 (0-1.0) k/uL Eosinophils # 0.1 (0-0.7) k/uL Basophils # 0.0 (0-0.2) k/uL Macrocytosis Slight PT 10.9 (9.0-12.0) sec INR 1.0 (<1.2) APTT 24.0 (22.0-30.0) sec D-Dimer 1.45 H (<0.60) mg/L FEU Sodium (137-145) mmol/L Potassium (3.5-5.1) mmol/L Chloride (98-107) mmol/L Carbon Dioxide (22-30) mmol/L Anion Gap mmol/L BUN (9-20) mg/dL Creatinine (0.66-1.25) mg/dL Est GFR (CKD-EPI)AfAm (>60 ml/min/1.73 sqM) Est GFR (CKD-EPI)NonAf (>60 ml/min/1.73 sqM) Glucose (74-99) mg/dL Calcium (8.4-10.2) mg/dL Total Bilirubin (0.2-1.3) mg/dL AST (17-59) U/L ALT (4-49) U/L Alkaline Phosphatase (38-126) U/L Troponin I (0.000-0.034) ng/mL Total Protein (6.3-8.2) g/dL Albumin (3.5-5.0) g/dL Amylase (30-110) U/L Lipase (23-300) U/L Urine Color Yellow Urine Appearance Clear (Clear) Urine pH 7.5 (5.0-8.0) Ur Specific [place] 1.013 (1.001-1.035) Urine Protein Negative (Negative) Urine Glucose (UA) Negative (Negative) Urine Ketones Negative (Negative) Urine Blood Negative (Negative) Urine Nitrite Negative (Negative) Urine Bilirubin Negative (Negative) Urine Urobilinogen <2.0 (<2.0) mg/dL Ur Leukocyte Esterase Small H (Negative) Urine RBC <1 (0-5) /hpf Urine WBC 2 (0-5) /hpf Ur Squamous Epith Cells <1 (0-4) /hpf Urine Mucus Rare H (None) /hpf 08/05/20 08/05/20 Range/Units 12:00 12:00 WBC (3.8-10.6) k/uL RBC (4.30-5.90) m/uL Hgb (13.0-17.5) gm/dL Hct (39.0-53.0) % MCV (80.0-100.0) fL MCH (25.0-35.0) pg MCHC (31.0-37.0) g/dL RDW (11.5-15.5) % Plt Count (150-450) k/uL MPV Neutrophils % % Lymphocytes % % Monocytes % % Eosinophils % % Basophils % % Neutrophils # (1.3-7.7) k/uL Lymphocytes # (1.0-4.8) k/uL Monocytes # (0-1.0) k/uL Eosinophils # (0-0.7) k/uL Basophils # (0-0.2) k/uL Macrocytosis PT (9.0-12.0) sec INR (<1.2) APTT (22.0-30.0) sec D-Dimer (<0.60) mg/L FEU Sodium 134 L (137-145) mmol/L Potassium 3.9 (3.5-5.1) mmol/L Chloride 101 (98-107) mmol/L Carbon Dioxide 25 (22-30) mmol/L Anion Gap 8 mmol/L BUN 37 H (9-20) mg/dL Creatinine 1.59 H (0.66-1.25) mg/dL Est GFR (CKD-EPI)AfAm 50 (>60 ml/min/1.73 sqM) Est GFR (CKD-EPI)NonAf 43 (>60 ml/min/1.73 sqM) Glucose 206 H (74-99) mg/dL Calcium 8.5 (8.4-10.2) mg/dL Total Bilirubin 0.9 (0.2-1.3) mg/dL AST 44 (17-59) U/L ALT 32 (4-49) U/L Alkaline Phosphatase 125 (38-126) U/L Troponin I <0.012 (0.000-0.034) ng/mL Total Protein 6.5 (6.3-8.2) g/dL Albumin 3.4 L (3.5-5.0) g/dL Amylase 41 (30-110) U/L Lipase 42 (23-300) U/L Urine Color Urine Appearance (Clear) Urine pH (5.0-8.0) Ur Specific [place] (1.001-1.035) Urine Protein (Negative) Urine Glucose (UA) (Negative) Urine Ketones (Negative) Urine Blood (Negative) Urine Nitrite (Negative) Urine Bilirubin (Negative) Urine Urobilinogen (<2.0) mg/dL Ur Leukocyte Esterase (Negative) Urine RBC (0-5) /hpf Urine WBC (0-5) /hpf Ur Squamous Epith Cells (0-4) /hpf Urine Mucus (None) /hpf - Radiology Data Radiology results: report reviewed (Computed tomography scan of the abdomen shows moderate to large amount of ascites. Sclerotic liver disease and hepa tosplenomegaly.), image reviewed (Chest x-ray shows postsurgical changes.) Disposition Clinical Impression: Ascites, Pneumonia Disposition: ADMITTED IP TO THIS HOSP Is patient prescribed a controlled substance at d/c from ED?: No Referrals: Louie Alaniz MD [Primary Care Provider] - 1-2 days Decision Time: 13:26
[2020-08-05 12:19] LABS: Basophils % (A) 1 %; Eosinophils # (A) 0.1 k/uL (0-0.7); Eosinophils % (A) 2 %; HCT 38.2 % (39.0-53.0); HGB 12.4 gm/dL (13.0-17.5); Lymphocytes # (A) 0.5 k/uL (1.0-4.8); Lymphocytes % (A) 8 %; MCH 32.8 pg (25.0-35.0); MCHC 32.3 g/dL (31.0-37.0); MCV 101.5 fL (80.0-100.0); Macrocytosis Slight; Mean Platelet Volume 8.7; Monocytes # (A) 0.6 k/uL (0-1.0); Monocytes % (A) 9 %; Neutrophils # (A) 4.9 k/uL (1.3-7.7); Neutrophils % (A) 78 %; Platelet Count 100 k/uL (150-450); RBC 3.77 m/uL (4.30-5.90); RDW 15.1 % (11.5-15.5); WBC 6.2 k/uL (3.8-10.6)
[2020-08-05 12:21] LABS: Appearance,Urine Clear (Clear); Bilirubin,Urine Negative (Negative); Blood,Urine Negative (Negative); Color,Urine Yellow; Glucose,Urine (UA) Negative (Negative); Ketones,Urine Negative (Negative); Leukocyte Esterase,Urine Small (Negative); Mucus,Urine Rare /hpf; Nitrite,Urine Negative (Negative); PH, Urine 7.5 (5.0-8.0); Protein,Urine Negative (Negative); RBC,Urine <1 /hpf (0-5); Specific Gravity,Urine 1.013 (1.001-1.035); Squamous Epithelial Cell,Urine <1 /hpf (0-4); Urobilinogen,Urine <2.0 mg/dL (<2.0); WBC,Urine 2 /hpf (0-5)
[2020-08-05 12:28] LABS: Albumin 3.4 g/dL (3.5-5.0); Calcium 8.5 mg/dL (8.4-10.2); Potassium 3.9 mmol/L (3.5-5.1); Total Bilirubin 0.9 mg/dL (0.2-1.3); Total Protein 6.5 g/dL (6.3-8.2)
--- NOTE | 2020-08-05 12:29 | XR ---
EXAMINATION TYPE: XR chest 2V DATE OF EXAM: 08/05/2020 COMPARISON: 09/13/2019 HISTORY: 69-year-old male lower chest and upper abdominal pain with distention. TECHNIQUE: PA and lateral views FINDINGS: Heart upper limits of normal in size. Clamshell sternotomy fixation. Surgical clips at the bilateral rich. Chronic pleural parenchymal thickening along the periphery of the right lung. No significant pl eural effusion. New patchy airspace opacity throughout the right lung. IMPRESSION: Suspect post surgical change related to bilateral lung transplant. There is new patchy infiltrate thr oughout the right lung. Correlate for pneumonia. Follow-up after treatment to ensure clearance.
[2020-08-05 12:41] LABS: Prothrombin Time 10.9 sec (9.0-12.0)
--- NOTE | 2020-08-05 12:52 | CT ---
EXAMINATION TYPE: CT abdomen pelvis wo con DATE OF EXAM: 08/05/2020 COMPARISON: 05/06/2017 HISTORY: pain, distention CT DLP: 654.1 mGycm Examination of the solid and hollow viscera is limited given the lack of contrast. FINDINGS: LUNG BASES: No evidence for nodule. No evidence for infiltrate. Small pleural effusions are noted. Th ere is evidence of cardiomegaly. LIVER/GB: Micronodular contour to the liver is suggestive of underlying cirrhotic liver disease. Ther e is also evidence of hepatomegaly. There is evidence of cholelithiasis. No space-occupying hepatic l esion. PANCREAS: No pancreatic mass identified. No inflammatory process seen. SPLEEN: Splenomegaly noted measuring 18.5 cm craniocaudal dimension. No intrasplenic lesions seen. ADRENALS: No adrenal nodules identified. No evidence for thickening. KIDNEYS: No evidence for renal mass. No nephrolithiasis. No hydronephrosis. Urinary bladder diverticu lum noted. BOWEL: Appendix has a normal appearance. No evidence of bowel obstruction. No inflammatory process. H iatal hernia is noted. Lymph nodes: No evidence for adenopathy greater than 1 cm. Abdominal aorta: Atheromatous changes seen. No evidence for aneurysm. Genital organs: No significant abnormality. Other: Moderate to large amount of ascites seen throughout the abdomen and pelvis. IMPRESSION: 1. Moderate to large amount of ascites seen throughout the abdomen and pelvis. 2. Findings compatible with the sclerotic liver disease and hepatosplenomegaly.
[2020-08-05 12:57] LABS: D-Dimer 1.45 mg/L FEU (<0.60)
[2020-08-05] MEDS ORDERED: LEVOFLOXACIN 750MG-D5W PMX 750 MG in DEXTROSE/WATER 1 150ML.BAG IVPB STA (13:27)
[2020-08-05] MEDS ORDERED: PNEUMONIA PROTOCOL UTILIZED 1 EACH MISC PO PRN (13:27)
[2020-08-05] MEDS: SODIUM CHLORIDE 0.9% 1,000 ML IV SCH (13:57)
[2020-08-05] MEDS: HYDROCORTISONE SUCCINATE 100 MG/2 ML VIAL IV SCH ×2 (15:54→23:11)
[2020-08-05] MEDS: HYDROcodone/APAP 7.5-325MG 1 EACH TAB PO PRN ×2 (15:54→23:10)
[2020-08-05] MEDS: POTASSIUM CITRATE 10 MEQ TABLET.ER PO SCH ×2 (15:55→20:46)
[2020-08-05 17:43] LABS: Glucose,Whole Blood 214 mg/dL (75-99)
[2020-08-05 20:27] LABS: Glucose,Whole Blood 330 mg/dL (75-99)
--- NOTE | 2020-08-05 20:43 | NM ---
EXAMINATION TYPE: NM pul vent and perfuse DATE OF EXAM: 08/05/2020 COMPARISON: Same-day radiograph. HISTORY: Chest pain. TECHNIQUE: Utilizing inhalation of 36 mCi Tc 99m DTPA aerosol and intravenous injection of 4.9 mCi o f Tc 99m MAA, ventilation and perfusion images are acquired post injection in multiple projections. FINDINGS: Heterogeneous radiotracer distribution is noted in the right greater than left. There are multiple ma tched ventilatory and perfusion defects. IMPRESSION: Heterogeneous radiotracer distribution with matched V/Q defects corresponding to radiographic abnorma lities. Findings are nondiagnostic for pulmonary embolus.
[2020-08-05] MEDS: HEPARIN SODIUM,PORCINE 5,000 UNIT/ML 1 ML VIAL SQ SCH (20:44)
[2020-08-05] MEDS: INSULIN DETEMIR (LEVEMIR) 100 UNIT/ML SYR SQ SCH (20:45)
[2020-08-05] MEDS: SODIUM BICARBONATE TAB 650 MG TAB PO SCH (20:45)
[2020-08-05] MEDS: PIPERACILLIN-TAZOBACTAM 3.375 GM in SODIUM CHLORIDE 0.9% 100 ML IVPB SCH (20:46)
[2020-08-05] MEDS: TACROLIMUS 0.5 MG CAP PO SCH (20:46)
[2020-08-05] MEDS ORDERED: TACROLIMUS 1 MG CAP PO SCH (21:00)
[2020-08-06] MEDS: SODIUM CHLORIDE 0.9% 1,000 ML IV SCH ×3 (01:58→13:54)
[2020-08-06 04:06] LABS: Hepatitis A Antibody IgM Non-Reactive (Non-Reactive); Hepatitis B Core IgM Non-Reactive (Non-Reactive); Hepatitis B Surface Antigen Non-Reactive (Non-Reactive); Hepatitis C IgG Antibody Non-Reactive (Non-Reactive)
--- NOTE | 2020-08-06 06:26 | CONS ---
CONSULTATION DATE OF SERVICE: 08/05/2020 REASON FOR CONSULTATION: Pneumonia. HISTORY OF PRESENT ILLNESS: The patient is a 69-year-old male with a past medical history significant for COPD/pulmonary fibrosis. The patient was double lung transplant. The patient is on immunosuppressive medication. The patient presented to the ER at [facility] with abdominal discomfort and distention. The patient said this has been going on for about a month with recent worsening. The patient has also been complaining of vomiting for the last few days and nothing tastes good. Appetite remains to be low. The patient did have a mild cough with occasional sputum production. Did mention hemoptysis to the ER physician, but not to me. No pleuritic chest pain. Did have some diarrhea. The patient did mention he did have a fever yesterday. However, on arrival to the ER, the patient was noticed to be afebrile and no fever has been recorded since then. The patient is currently saturating 94/93% on room air. The patient did have a normal white count with lymphopenia. Creatinine was elevated 1.59, d-dimer elevated at 1.45. Liver enzymes are normal. Amylase and lipase normal. Urine is negative. Dueñas PCR came back negative. The patient did have a chest x-ray with evidence of right-sided pneumonia. CT of abdomen and pelvis did show some moderate ascites and evidence of hypertensive renal disease. V/Q scan was low probability for PE. The patient had been started on Levaquin and Zosyn and admitted to the hospital. Infectious Disease was consulted for further management of antibiotic therapy. REVIEW OF SYSTEMS: Positive points have been mentioned in HPI. Rest of systems are negative. PAST MEDICAL HISTORY: COPD, diabetes mellitus, GERD, osteoarthritis, prostate disorder, renal insufficiency, COPD with pulmonary fibrosis. PAST SURGICAL HISTORY: Bilateral lung transplant, heart catheterization, hernia repair. SOCIAL HISTORY: Remote history of smoking. No drinking or drug use. FAMILY HISTORY: Mother had a history of COPD. Father at 68 from asthma. ALLERGIES: CLARITHROMYCIN AND IBUPROFEN. MEDICATIONS: Currently include the patient is on Zosyn, Zithromax, Flomax, Bactrim DS, Prograf, Zoloft, prednisone, Protonix, Toprol-XL, Levemir, Solu-Cortef, heparin, Zestoretic, Lipitor, Norvasc. PHYSICAL EXAMINATION: VITAL SIGNS: Blood pressure 123/63 with a pulse of 64, temperature 98.3, he is 93% on room air. GENERAL DESCRIPTION: The patient is an elderly male lying in bed in no distress. No tachypnea or accessory muscles of respiration use. HEENT: Examination shows no pallor or scleral icterus. Oral mucous membrane is dry. NECK: Trachea central, no thyromegaly. LUNGS: Unlabored breathing, decreased intensity of breath sounds. No wheeze. HEART: S1, S2. Regular rate and rhythm. ABDOMEN: Soft, no tenderness. No guarding or rigidity. EXTREMITIES: No edema of the feet. SKIN: No rash or masses palpable. NEUROLOGICAL: The patient is awake, alert, oriented times two, mood and affect normal. LABS: Hemoglobin is 12.4, white count 6.2, d-dimer is 1.45, BUN of 37, creatinine 1.59. Liver enzymes are normal. Amylase and lipase . Chest x-ray, CT and V/Q scan report as mentioned above. DIAGNOSTIC IMPRESSION: The patient admitted to the hospital predominantly with abdominal distention, discomfort. No nausea or vomiting. Also has respiratory symptom of cough. Did have some sputum production with evidence of right-sided pneumonia on the x-ray with a question of possible aspiration pneumonitis versus atypical bacterial versus viral pneumonia. Patient currently with no elevated white count and did have evidence of lymphopenia which will raise the possibility of viral pneumonia with with initial COVID test came back negative. PLAN: 1. We will obtain a sputum for Gram stain, culture and sensitivity of urine for Legionella antigen. 2. Will repeat his COVID test and check influenza PCR. 3. Continue empiric antibiotic in the form of Zosyn and Levaquin. 4. We will follow on clinical condition and investigation to further adjust medication if needed. Thank you for this consultation. Will follow this patient along with you. MMODL / IJN: [id number] /
[2020-08-06] MEDS: HEPARIN SODIUM,PORCINE 5,000 UNIT/ML 1 ML VIAL SQ SCH ×2 (06:40→20:59)
[2020-08-06 06:51] LABS: Glucose,Whole Blood 195 mg/dL (75-99)
[2020-08-06] MEDS: PANTOPRAZOLE 40 MG/10 ML VIAL IVP SCH (07:49)
[2020-08-06] MEDS: ATORVASTATIN 10 MG TAB PO SCH (07:49)
[2020-08-06] MEDS: FERROUS SULFATE 325 MG TAB PO SCH (07:49)
[2020-08-06] MEDS: SODIUM BICARBONATE TAB 650 MG TAB PO SCH ×2 (07:49→20:59)
[2020-08-06] MEDS: METOPROLOL SUCCINATE (ER) 100 MG TAB.ER.24H PO SCH (07:49)
[2020-08-06] MEDS: MULTIVITAMINS, THERA 1 EACH TAB PO SCH (07:49)
[2020-08-06] MEDS: SERTRALINE 50 MG TAB PO SCH (07:49)
[2020-08-06] MEDS: amLODIPine 10 MG TAB PO SCH (07:49)
[2020-08-06] MEDS: HYDROCORTISONE SUCCINATE 100 MG/2 ML VIAL IV SCH ×2 (07:49→17:27)
[2020-08-06] MEDS: TAMSULOSIN 0.4 MG CAP.ER.24H PO SCH (07:50)
[2020-08-06] MEDS: allopurinoL 100 MG TAB PO SCH (07:50)
[2020-08-06] MEDS: METOCLOPRAMIDE 10 MG TAB PO SCH (07:50)
[2020-08-06] MEDS: POTASSIUM CITRATE 10 MEQ TABLET.ER PO SCH ×3 (07:50→21:00)
[2020-08-06] MEDS: LISINOPRIL-HCTZ 10-12.5 MG 1 EACH TAB PO SCH (07:51)
[2020-08-06] MEDS: PIPERACILLIN-TAZOBACTAM 3.375 GM in SODIUM CHLORIDE 0.9% 100 ML IVPB SCH ×2 (07:52→20:59)
[2020-08-06] MEDS: TACROLIMUS 0.5 MG CAP PO SCH ×2 (07:52→21:00)
--- NOTE | 2020-08-06 07:55 | XR ---
EXAMINATION TYPE: XR chest 1V portable DATE OF EXAM: 08/06/2020 CLINICAL HISTORY: Pneumonia progress study. TECHNIQUE: Single AP portable upright view of the chest is obtained. COMPARISON: Chest x-ray from one day earlier and older studies. FINDINGS: Overlying sternal wires and mediastinal clips are redemonstrated. Diminished inspiration w ith new cardiomegaly. Chronic parenchymal changes with multifocal increased opacities and small right pleural effusion. Osseous structures are intact. IMPRESSION: Diminished inspiration on current study. Chronic parenchymal changes with bilateral multi focal acute infiltrates. Persistent small right pleural effusion.
[2020-08-06] MEDS: HYDROcodone/APAP 7.5-325MG 1 EACH TAB PO PRN ×3 (08:06→21:08)
[2020-08-06] MEDS ORDERED: NON FORMULARY DRUG (Omeprazole 40 MG Capsule.Dr) PO SCH (09:00)
[2020-08-06] MEDS ORDERED: predniSONE 5 MG TAB PO SCH (09:00)
[2020-08-06 09:31] LABS: HCT 32.6 % (39.6-50.0); HGB 10.3 g/dL (13.0-17.0); MCH 31.5 pg (27.0-32.0); MCHC 31.6 g/dL (32.0-37.0); MCV 99.7 fL (80.0-97.0); Mean Platelet Volume 12.4 fL (9.5-12.2); Platelet Count 96 X 10*3/uL (140-440); RBC 3.27 X 10*6/uL (4.40-5.60); RDW 13.8 % (11.5-14.5); WBC 3.08 X 10*3/uL (4.50-10.00)
--- NOTE | 2020-08-06 10:11 | XR ---
EXAMINATION TYPE: XR chest 2V DATE OF EXAM: 08/06/2020 COMPARISON: Chest x-ray 08/06/2020 earlier time HISTORY: Pneumonia TECHNIQUE: Frontal and lateral views of the chest are obtained. FINDINGS: Airspace disease is more conspicuous in the right upper lobe. There is pleural thickening again noted in the right hemithorax. Postop changes are stable. No evident pneumothorax or pleural ef fusion. Cardiac mediastinal silhouette shows a similar appearance accounting for differences in techn ique. The aorta is dense. IMPRESSION: Correlate for pneumonia, atypical pulmonary edema not excluded.
[2020-08-06 10:15] LABS: Ferritin 104.7 ng/mL (22.0-322.0)
[2020-08-06 10:25] LABS: African American GFR (CKD) 49.5 (60.0-200.0); Albumin 3.5 g/dL (3.80-4.90); Albumin/Globulin Ratio 1.52 (1.60-3.17); Anion Gap 6.6 mmol/L (4.00-12.00); BUN/Creat Ratio 21.25 Ratio (12.00-20.00); C Reactive Protein 2.3 mg/dL (0.0-0.8); Calcium 7.7 mg/dL (8.7-10.3); Carbon Dioxide 25.4 mmol/L (21.6-31.8); Globulin 2.3 g/dL (1.6-3.3); Non-African American GFR(CKD) 42.7 (60.0-200.0); Potassium 4.3 mmol/L (3.5-5.5); Total Bilirubin 0.5 mg/dL (0.3-1.2); Total Protein 5.8 g/dL (6.2-8.2)
[2020-08-06 11:44] LABS: Glucose,Whole Blood 201 mg/dL (75-99)
--- NOTE | 2020-08-06 11:45 | P.CNPUL ---
History of Present Illness Consult date: 08/05/20 Chief complaint: History of lung transplantation, ascites History of present illness: This is a 69-year-old male patient known history of COPD/pulmonary fibrosis was undergone double lung chest mentation many years back in 2008 maintained on imm unosuppressive agents on outpatient basis and the patient has been doing well. The patient is demented on a combination of Prograf and prednisone and he has been also receiving Bactrim as antibiotic prophylaxis. He was diagnosed having hypogammaglobulinemia and he was receiving IVIG replacement once a month for our hospital. His last hospitalization was in July 2019 when the patient came back with extensive bilateral pneumonia more so on the left and he was treated with broad-spectrum antibiotics and he improved and he was discharged home. The patient came into the emergency department with abdominal discomfort and distention. Symptoms of been going on for almost a month and it got worse over the past few days. He had developed emesis for the past few days around 2-3 times a day. He had lost his appetite. He was also experiencing some increased cough and he raised some concerns for hemoptysis as well. For that reason he came into the emergency department. On admission, his white cell count was at 6.2 with a hemoglobin of 12.4 and a platelet count of 100. D-dimer was at 1.45 with a normal coagulation profile. BUN is 37 with a creatinine of 1.5 and a sodium level of 134 with a potassium level of 3.9. His UA was negative. Troponin was negative. Amylase and lipase were within normal limits. SGOT and SGPT were within normal limits. Alkaline phosphatase was normal with a bilirubin of 0.9. UA was negative and the obando virus Covid 19 testing by nasal swab was also negative. His current pulse ox 94% liters about 2 by nasal cannula. Afebrile. BP is 140/74. CAT scan of the abdomen showed moderate to large amount of ascites throughout the abdomen and pelvis. This was consistent with chronic liver disease as the patient also had some hepatosplenomegaly. The lung bases were within normal limits. There are small better pleural effusion. The liver was macronodular suggestive of underlying cirrhotic liver disease. There is evidence of cholelithiasis. Review of Systems Constitutional: Reports fatigue, Reports fever, Reports poor appetite, Reports weakness Eyes: denies as per HPI, denies blurred vision, denies bulging eye, denies decreased vision, denies diplopia, denies discharge, denies dry eye, denies irritation, denies itching, denies pain, denies photophobia, denies loss of peripheral vision, denies loss of vision, denies tunnel vision/blind spots Ears: deny: decreased hearing, ear discharge, earache, tinnitus Ears, nose, mouth and throat: Reports as per HPI Breasts: absent: as per HPI, gynecomastia Cardiovascular: Reports chest pain, Reports decreased exercise tolerance, Reports dyspnea on exertion, Reports shortness of breath Respiratory: Reports cough, Reports dyspnea, Reports hemoptysis, Reports pain on inspiration, endorses worsening shortness of breath Gastrointestinal: Reports as per HPI, Reports diarrhea, Reports nausea and he also endorses increased emesis and abdominal distention Genitourinary: Reports as per HPI Musculoskeletal: Reports as per HPI Musculoskeletal: absent: ankle pain, ankle stiffness, ankle swelling Integumentary: Reports as per HPI Neurological: Reports as per HPI, Reports weakness Psychiatric: Reports as per HPI Endocrine: Reports as per HPI Hematologic/Lymphatic: Reports as per HPI Allergic/Immunologic: Reports as per HPI Past Medical History Past Medical History: COPD, Diabetes Mellitus, GERD/Reflux, Osteoarthritis (OA), Pneumonia, Prostate Disorder, Renal Disease, Respiratory Disorder Additional Past Medical History / Comment(s): History of COPD and pulmonary fibrosis. The patient underwent bilateral lung transplantation and 2008. He has diabetes, chronic arthritis with back pain, degenerative disc disease, chronic stage III kidney disease, chronic hypogammaglobulinemia and the patient is receiving IVIG treatment on outpatient basis and the last treatment was in June 2019, left lung pneumonia in July 2019 requiring hospitalization History of Any Multi-Drug Resistant Organisms: None Reported Past Surgical History: Heart Catheterization, Hernia Repair Additional Past Surgical History / Comment(s): RT & LT CATARACT REMOVED/COLONOSCOPY/BILATERAL LUNG TRANSPLANT 20082013 HERNIA REPAIR UMBILICAL, LEFT INGUINAL AND FEMEROL. TURP - 2015 Past Anesthesia/Blood Transfusion Reactions: No Reported Reaction Past Psychological History: Anxiety, Depression Smoking Status: Former smoker - Past Family History Mother Family Medical History: No Reported History Additional Family Medical History / Comment(s): Mother at age 73 from asthma or COPD. Father Additional Family Medical History / Comment(s): Father at age 68 from asthma. Brother(s) Additional Family Medical History / Comment(s): Patient states he has 6 brothers and 5 sisters and is not sure of their medical history. Some have passed. Patient has one daughter with no major medical problems. Medications and Allergies Home Medications Medication Instructions Recorded Confirmed Type Alendronate Sodium [Fosamax] 70 mg PO WE 11/06/13 08/05/20 History Ergocalciferol (Vitamin D2) 50,000 units PO Q15D 11/06/13 08/05/20 History [Drisdol] Fludrocortisone [Florinef] 0.1 mg PO QAM 11/06/13 08/05/20 History Metoprolol Succinate (ER) [Toprol 100 mg PO QAM 11/06/13 08/05/20 History XL] Sulfamethox-Tmp 800-160Mg [Bactrim 1 tab PO MOWEFR 11/06/13 08/05/20 History DS 800-160 mg] Tacrolimus [Prograf] 2 mg PO BID 11/06/13 08/05/20 History Insulin Detemir (Levemir) [Levemir] 40 unit SQ HS 01/02/14 08/05/20 History Azithromycin [Zithromax] 250 mg PO MOWEFR 11/05/15 08/05/20 History Multivitamins, Thera [Multivitamin 1 tab PO DAILY 07/23/16 08/05/20 History (formulary)] Ferrous Sulfate [Iron (65 MG 325 mg PO DAILY 09/29/16 08/05/20 History Elemental)] Allopurinol [Zyloprim] 100 mg PO DAILY 05/06/17 08/05/20 History Metoclopramide [Reglan] 10 mg PO QAM 05/06/17 08/05/20 History amLODIPine [Norvasc] 10 mg PO DAILY 05/06/17 08/05/20 History Omeprazole [PriLOSEC] 40 mg PO DAILY 03/02/18 08/05/20 History Sertraline [Zoloft] 50 mg PO DAILY 03/02/18 08/05/20 History Lisinopril-Hctz 10-12.5 mg 1 tab PO DAILY 07/11/19 08/05/20 History [Zestoretic 10-12.5] Tacrolimus [Prograf] 0.5 mg PO BID 08/16/19 08/05/20 History Tamsulosin HCl [Flomax] 0.4 mg PO DAILY 08/16/19 08/05/20 History predniSONE 5 mg PO DAILY #0 08/21/19 08/05/20 Rx Atorvastatin [Lipitor] 10 mg PO DAILY 05/30/20 08/05/20 History Potassium Citrate [Urocit-K] 10 meq PO TID 05/30/20 08/05/20 History HYDROcodone/APAP 7.5-325MG [[place] 1 tab PO TID PRN 08/05/20 08/05/20 History 7.5-325] Sodium Bicarbonate 650 mg PO BID 08/05/20 08/05/20 History Allergies Allergy/AdvReac Type Severity Reaction Status Date / Time clarithromycin [From Biaxin] AdvReac instructed Verified 08/05/20 12:31 not to take r/t lung transplant ibuprofen [From Motrin] AdvReac Abdominal Verified 08/05/20 12:31 Pain Physical Exam Vitals: Vital Signs Temp Pulse Resp BP Pulse Ox 08/05/20 14:13 67 18 140/74 94 L 08/05/20 11:19 97.5 F L 70 20 135/65 94 L Intake and Output 08/05/20 08/05/20 08/05/20 06:59 14:59 22:59 Other: Weight 68.039 kg Gen. appearance the patient is a mild degree of respiratory distress on 2 L of oxygen by nasal cannula Head exam was generally normal. There was no scleral icterus or corneal arcus. Mucous membranes were moist. Neck was supple and without jugular venous distension, thyromegaly, or carotid bruits. Carotids were easily palpable bilaterally. There was no adenopathy. Examination of the lungs shows a clamshell incision over the anterior chest related to transplantation. The patient has crackles in right midlung area anteriorly and posteriorly Cardiac exam revealed the PMI to be normally situated and sized. The rhythm was regular and no extrasystoles were noted during several minutes of auscultation. The first and second heart sounds were normal and physiologic splitting of the second heart sound was noted. There were no murmurs, rubs, clicks, or gallops. Abdominal exam revealed normal bowel sounds. The abdomen was soft, non-tender, and without masses, organomegaly, or appreciable enlargement of the abdominal aorta. The patient has an abdominal wall hernia on examination , the patient also has some fluid wave and shifting dullness. No direct tenderness, no rebo und tenderness or guarding Examination of the extremities revealed easily palpable radial, femoral and pedal pulses. There was no cyanosis, clubbing or edema. Examination of the skin revealed no evidence of significant rashes, suspicious appearing nevi or other concerning lesions. Results - Laboratory Findings CBC and BMP: 08/05/20 12:00 08/05/20 12:00 PT/INR, D-dimer PT 10.9 sec (9.0-12.0) 08/05/20 12:00 INR 1.0 (<1.2) 08/05/20 12:00 D-Dimer 1.45 mg/L FEU (<0.60) H 08/05/20 12:00 Abnormal lab findings: Abnormal Labs 08/05/20 08/05/20 08/05/20 12:00 12:00 12:00 RBC 3.77 L Hgb 12.4 L Hct 38.2 L MCV 101.5 H Plt Count 100 L Lymphocytes # 0.5 L D-Dimer 1.45 H Sodium BUN Creatinine Glucose Albumin Ur Leukocyte Esterase Small H Urine Mucus Rare H 08/05/20 12:00 RBC Hgb Hct MCV Plt Count Lymphocytes # D-Dimer Sodium 134 L BUN 37 H Creatinine 1.59 H Glucose 206 H Albumin 3.4 L Ur Leukocyte Esterase Urine Mucus - Diagnostic Findings Chest x-ray: image reviewed CT scan - chest: image reviewed Assessment and Plan Plan: 1 acute right lung pneumonia involving the right upper lobe/right middle lobe area. The patient is immunosuppressed with a combination of Prograf and p rednisone. The patient has also underlying chronic immunosuppression with hypogammaglobulinemia receiving IVIG on outpatient basis. He has been maintained on Zithromax/Bactrim as an antibiotic prophylaxis. His last bout of pneumonia was in July 2019 involving the left lung. 2 acute hypoxic respiratory failure currently on 2 L of oxygen by nasal cannula 3 history of bilateral lung transplantation for COPD/pulmonary fibrosis performed in 2008, maintained on a combination of Prograf and prednisone 4 abdominal distention with ascites in addition to some nausea and emesis. CAT scan of the abdomen is indicating the possibility of liver cirrhosis with secondary spleenmegaly and hepatomegaly 5 chronic stage III kidney disease, stable creatinine 6 diabetes mellitus type 2, maintained on Levemir insulin 50 units every morning along with sliding scale coverage 7 chronic back pain 8 osteoarthritis 9 BPH, Post TURP 10 HYPOGAMMAGLOBULINEMIA RECEIVING IVIG ON OUTPATIENT BASIS 11 chronic anxiety/depression 12 chronic immunosuppression utilizing a combination of Prograf and prednisone 13 osteoporosis on Fosamax Plan Obtain sputum Gram stain and culture Obtain blood culture Put the patient on a combination of Levaquin and Zosyn Check pro calcitonin level Monitor fever pattern Check hepatitis profile Coagulation profile is within normal limits Consult interventional radiology regarding the possibility of paracentesis for fluid analysis Stress dose hydrocortisone 100 mg every 8 hours Hold Prograf for now IV fluids with normal state rate of 150 mL an hour Monitor renal function Monitor blood sugar and resume the patient's Levemir insulin in addition to a sliding scale coverage Resume home medication We'll continue to follow
--- NOTE | 2020-08-06 11:52 | P.PN ---
Subjective Progress Note Date: 08/06/20 This is a 69-year-old male patient known history of COPD/pulmonary fibrosis was undergone double lung chest mentation many years back in 2008 maintained on immunosuppressive agents on outpatient basis and the patient has been doing well. The patient is demented on a combination of Prograf and prednisone and he has been also receiving Bactrim as antibiotic prophylaxis. He was diagnosed having hypogammaglobulinemia and he was receiving IVIG replacement once a month for our hospital. His last hospitalization was in July 2019 when the patient came back with extensive bilateral pneumonia more so on the left and he was treated with broad-spectrum antibiotics and he improved and he was discharged home. The patient came into the emergency department with abdominal discomfort and distention. Symptoms of been going on for almost a month and it got worse over the past few days. He had developed emesis for the past few days around 2-3 times a day. He had lost his appetite. He was also experiencing some increased cough and he raised some concerns for hemoptysis as well. For that reason he came into the emergency department. On admission, his white cell count was at 6.2 with a hemoglobin of 12.4 and a platelet count of 100. D-dimer was at 1.45 with a normal coagulation profile. BUN is 37 with a creatinine of 1.5 and a sodium level of 134 with a potassium level of 3.9. His UA was negative. Troponin was negative. Amylase and lipase were within normal limits. SGOT and SGPT were within normal limits. Alkaline phosphatase was normal with a bilirubin of 0.9. UA was negative and the obando virus Covid 19 testing by nasal swab was also negative. His current pulse ox 94% liters about 2 by nasal cannula. Afebrile. BP is 140/74. CAT scan of the abdomen showed moderate to large amount of ascites throughout the abdomen and pelvis. This was consistent with chronic liver disease as the patient also had some hepatosplenomegaly. The lung bases were within normal limits. There are small better pleural effusion. The liver was macronodular suggestive of underlying cirrhotic liver disease. There is evidence of cholelithiasis. 08/06/2020, the patient is being seen for a follow-up. He is currently on room air oxygen. He has a congested cough. Less sputum production. A repeat chest x-ray was done today and shows some improvement in the right lung pulmonary infiltrate. There is also some ongoing right-sided pleural effusion consistent with a right upper lobe pneumonia and a parapneumonic effusion. No evidence of any pneumothorax. Also, the patient is ascites. The patient underwent a large volume paracentesis by interventional radiology. On today's evaluation, as well as 1003 with a hemoglobin of 10.3 and a platelet count of 96. His creatinine is stable at 1.6 with a mean of 34. Cultures are all negative. Hepatitis profile is negative. UA negative. Remains on Zosyn and Levaquin. He is on stress dose hydrocortisone. Prograf has been stopped for now. Amount of fluid drained from his abdomen was 5.6 L. Objective - Vital Signs Vital signs: Vital Signs Temp 97.9 F 08/06/20 07:23 Pulse 70 08/06/20 11:21 Resp 18 08/06/20 11:21 BP 136/75 08/06/20 11:21 Pulse Ox 96 08/06/20 10:48 Intake & Output 08/05/20 08/06/20 08/06/20 18:59 06:59 18:59 Weight 68.039 kg Other: # Voids 1 2 - Exam Gen. appearance the patient is a mild degree of respiratory distress the patient is currently on room air oxygen Head exam was generally normal. There was no scleral icterus or corneal arcus. Mucous membranes were moist. Neck was supple and without jugular venous distension, thyromegaly, or carotid bruits. Carotids were easily palpable bilaterally. There was no adenopathy. Examination of the lungs shows a clamshell incision over the anterior chest related to transplantation. The patient has crackles in right midlung area anteriorly and posteriorly Cardiac exam revealed the PMI to be normally situated and sized. The rhythm was regular and no extrasystoles were noted during several minutes of auscultation. The first and second heart sounds were normal and physiologic splitting of the second heart sound was noted. There were no murmurs, rubs, clicks, or gallops. Abdominal exam revealed normal bowel sounds. The abdomen was soft, non-tender, and without masses, organomegaly, or appreciable enlargement of the abdominal aorta. The patient has an abdominal wall hernia on examination , the patient also has some fluid wave and shifting dullness. No direct tenderness, no rebou nd tenderness or guarding, and abdomen is less distended compared to yesterday following his large volume paracentesis. Examination of the extremities revealed easily palpable radial, femoral and peda l pulses. There was no cyanosis, clubbing or edema. Examination of the skin revealed no evidence of significant rashes, suspicious appearing nevi or other concerning lesions. - Labs CBC & Chem 7: 08/06/20 06:42 08/06/20 06:42 Labs: Abnormal Lab Results - Last 24 Hours (Table) 08/05/20 08/05/20 08/05/20 Range/Units 12:00 12:00 12:00 WBC (4.50-10.00) X 10*3/uL RBC 3.77 L (4.30-5.90) m/uL Hgb 12.4 L (13.0-17.5) gm/dL Hct 38.2 L (39.0-53.0) % MCV 101.5 H (80.0-100.0) fL MCHC (32.0-37.0) g/dL Plt Count 100 L (150-450) k/uL MPV (9.5-12.2) fL Lymphocytes # 0.5 L (1.0-4.8) k/uL D-Dimer 1.45 H (<0.60) mg/L FEU Sodium (137-145) mmol/L BUN (9-20) mg/dL Creatinine (0.66-1.25) mg/dL Est GFR (CKD-EPI)AfAm (60.0-200.0) Est GFR (CKD-EPI)NonAf (60.0-200.0) BUN/Creatinine Ratio (12.00-20.00) Ratio Glucose (74-99) mg/dL POC Glucose (mg/dL) (75-99) mg/dL Calcium (8.7-10.3) mg/dL Alkaline Phosphatase (41-126) U/L C-Reactive Protein (0.0-0.8) mg/dL Total Protein (6.2-8.2) g/dL Albumin (3.5-5.0) g/dL Albumin/Globulin Ratio (1.60-3.17) g/dL Procalcitonin (0.02-0.09) ng/mL Ur Leukocyte Esterase Small H (Negative) Urine Mucus Rare H (None) /hpf 08/05/20 08/05/20 08/05/20 Range/Units 12:00 12:00 17:42 WBC (4.50-10.00) X 10*3/uL RBC (4.30-5.90) m/uL Hgb (13.0-17.5) gm/dL Hct (39.0-53.0) % MCV (80.0-100.0) fL MCHC (32.0-37.0) g/dL Plt Count (150-450) k/uL MPV (9.5-12.2) fL Lymphocytes # (1.0-4.8) k/uL D-Dimer (<0.60) mg/L FEU Sodium 134 L (137-145) mmol/L BUN 37 H (9-20) mg/dL Creatinine 1.59 H (0.66-1.25) mg/dL Est GFR (CKD-EPI)AfAm (60.0-200.0) Est GFR (CKD-EPI)NonAf (60.0-200.0) BUN/Creatinine Ratio (12.00-20.00) Ratio Glucose 206 H (74-99) mg/dL POC Glucose (mg/dL) 214 H (75-99) mg/dL Calcium (8.7-10.3) mg/dL Alkaline Phosphatase (41-126) U/L C-Reactive Protein (0.0-0.8) mg/dL Total Protein (6.2-8.2) g/dL Albumin 3.4 L (3.5-5.0) g/dL Albumin/Globulin Ratio (1.60-3.17) g/dL Procalcitonin 0.58 H (0.02-0.09) ng/mL Ur Leukocyte Esterase (Negative) Urine Mucus (None) /hpf 08/05/20 08/06/20 08/06/20 Range/Units 20:25 06:42 06:42 WBC 3.08 L (4.50-10.00) X 10*3/uL RBC 3.27 L (4.30-5.90) m/uL Hgb 10.3 L (13.0-17.5) gm/dL Hct 32.6 L (39.0-53.0) % MCV 99.7 H (80.0-100.0) fL MCHC 31.6 L (32.0-37.0) g/dL Plt Count 96 L (150-450) k/uL MPV 12.4 H (9.5-12.2) fL Lymphocytes # (1.0-4.8) k/uL D-Dimer (<0.60) mg/L FEU Sodium (137-145) mmol/L BUN 34.0 H (9-20) mg/dL Creatinine 1.6 H (0.66-1.25) mg/dL Est GFR (CKD-EPI)AfAm 49.5 L (60.0-200.0) Est GFR (CKD-EPI)NonAf 42.7 L (60.0-200.0) BUN/Creatinine Ratio 21.25 H (12.00-20.00) Ratio Glucose 195 H (74-99) mg/dL POC Glucose (mg/dL) 330 H (75-99) mg/dL Calcium 7.7 L (8.7-10.3) mg/dL Alkaline Phosphatase 130 H (41-126) U/L C-Reactive Protein 2.3 H (0.0-0.8) mg/dL Total Protein 5.8 L (6.2-8.2) g/dL Albumin 3.50 L (3.5-5.0) g/dL Albumin/Globulin Ratio 1.52 L (1.60-3.17) g/dL Procalcitonin (0.02-0.09) ng/mL Ur Leukocyte Esterase (Negative) Urine Mucus (None) /hpf 08/06/20 08/06/20 Range/Units 06:50 11:43 WBC (4.50-10.00) X 10*3/uL RBC (4.30-5.90) m/uL Hgb (13.0-17.5) gm/dL Hct (39.0-53.0) % MCV (80.0-100.0) fL MCHC (32.0-37.0) g/dL Plt Count (150-450) k/uL MPV (9.5-12.2) fL Lymphocytes # (1.0-4.8) k/uL D-Dimer (<0.60) mg/L FEU Sodium (137-145) mmol/L BUN (9-20) mg/dL Creatinine (0.66-1.25) mg/dL Est GFR (CKD-EPI)AfAm (60.0-200.0) Est GFR (CKD-EPI)NonAf (60.0-200.0) BUN/Creatinine Ratio (12.00-20.00) Ratio Glucose (74-99) mg/dL POC Glucose (mg/dL) 195 H 201 H (75-99) mg/dL Calcium (8.7-10.3) mg/dL Alkaline Phosphatase (41-126) U/L C-Reactive Protein (0.0-0.8) mg/dL Total Protein (6.2-8.2) g/dL Albumin (3.5-5.0) g/dL Albumin/Globulin Ratio (1.60-3.17) g/dL Procalcitonin (0.02-0.09) ng/mL Ur Leukocyte Esterase (Negative) Urine Mucus (None) /hpf Assessment and Plan Plan: 1 acute right lung pneumonia involving the right upper lobe/right middle lobe area. The patient is immunosuppressed with a combination of Prograf and prednisone. The patient has also underlying chronic immunosuppression with hypogammaglobulinemia receiving IVIG on outpatient basis. He has been maintained on Zithromax/Bactrim as an antibiotic prophylaxis. His last bout of pneumonia was in July 2019 involving the left lung. For now, the patient has a right upper lobe infiltrate and a small right-sided pleural effusion. He is covered with a combination of Zosyn and Levaquin. Is currently on room air oxygen. Bactrim was restarted by the primary care team which is essentially a prophylaxis for PCP 90 the patient has been immunosuppressed. Nevertheless, I will suggest holding the Prograf for now pending further clearing of the pneumonia. 2 acute hypoxic respiratory failure currently on 2 L of oxygen by nasal cannula, currently on room air oxygen 3 history of bilateral lung transplantation for COPD/pulmonary fibrosis performed in 2008, maintained on a combination of Prograf and prednisone 4 abdominal distention with ascites in addition to some nausea and emesis. CAT scan of the abdomen is indicating the possibility of liver cirrhosis with secondary spleenmegaly and hepatomegaly , post large volume paracentesis with evacuation of 5.6 L of 5 chronic stage III kidney disease, stable creatinine ascitic fluid, creatinine is stable for now 6 diabetes mellitus type 2, maintained on Levemir insulin 50 units every morning along with sliding scale coverage 7 chronic back pain 8 osteoarthritis 9 BPH, Post TURP 10 HYPOGAMMAGLOBULINEMIA RECEIVING IVIG ON OUTPATIENT BASIS 11 chronic anxiety/depression 12 chronic immunosuppression utilizing a combination of Prograf and prednisone 13 osteoporosis on Fosamax Plan Blood cultures sent and the results are still pending. The pro calcitonin level was at 0.7 the patient is currently afebrile and the patient is on antibiotics Put the patient on a combination of Levaquin and Zosyn Stress dose hydrocortisone Check hepatitis profile is neg Large volume paracenteses was done and the patient will be given IV albumin as a replacement at a dose of 25 mg based on the amount of the volume drained from his abdomen , meanwhile, the fluid will be sent for cytology, albumin, Gram stain and cultures Stress dose hydrocortisone 100 mg every 8 hours Hold Prograf for now IV fluids to KVO Chest x-ray in the morning Monitor renal function Monitor blood sugar and resume the patient's Levemir insulin in addition to a sliding scale coverage Resume home medication We'll continue to follow
[2020-08-06 11:56] LABS: Immunoglobulin M <16.9 mg/dL (40.0-280.0)
--- NOTE | 2020-08-06 12:03 | P.PCN ---
Date of Procedure: 08/06/20 Preoperative Diagnosis: right sided pleural effusion Postoperative Diagnosis: same Procedure(s) Performed: Thoracentesis, right sided Anesthesia: local Surgeon: Tonya Syed Estimated Blood Loss (ml): 0 Pathology: other Condition: stable Disposition: floor Operative Findings: A time out was performed and the chest x-ray was reviewed, the appropriate side was confirmed and marked. My hands were washed immediately prior to the procedure. I wore a surgical cap, mask with protective eyewear, sterile gown and sterile gloves throughout the procedure. The patient was prepped and draped in a sterile manner using chlorhexidine scrub after the appropriate level was percussed and confirmed by ultrasound. 1% lidocaine was used to anesthesize the skin, subcutaneous tissue, superior aspect of the rib periosteum and parietal pleura. A finder needle was then introduced over the superior aspect of the rib to locate the pleural fluid; 2colored fluid was aspirated at a depth of approximately 2 cm. A 10-blade scalpel was used to meri the skin at the insertion site. The [id number] needle was then introduced through the skin incision into the pleural space using negative aspiration pressure and the red colometric indicator to confirm appropriate positioning of the needle. The thoracentesis catheter was then threaded without difficulty. 450 ml of turbid colored fluid was removed without difficulty. The catheter was then removed. No immediate complications were noted during the procedure. A post-procedure chest x-ray is pending at the time of this note. The fluid will 0 be sent for studies. Estimated blood loss is 0cc
[2020-08-06] MEDS: ALBUMIN HUMAN 25% 50 ML in EMPTY BAG 1 BAG IVPB SCH ×2 (13:49→14:20)
[2020-08-06 13:52] LABS: Appearance,BF Clear; Color,BF Yellow; Nucleated Cells, Body Fluid 89 /uL; RBC, Body Fluid 570 /uL
[2020-08-06 13:56] LABS: Mononuclear WBC,Body Fluid 71 %; Polynuclear WBC,Body Fluid 29 %; Total Cells Counted,Body Fluid 100
--- NOTE | 2020-08-06 14:19 | US ---
EXAMINATION TYPE: US paracentesis abd w/image DATE OF EXAM: 08/06/2020 CLINICAL HISTORY: Ascites The procedure was discussed with the patient. The risks, complications, benefits, and alternatives we re discussed and any questions were answered. Informed consent was obtained. The patient was placed s upine on the ultrasound table and prepped and draped in the usual sterile fashion. All elements of maximal barrier technique were utilized. Under ultrasound guidance, access into the right lower quadrant was obtained, via the paracentesis catheter system and direct ultrasound guidanc e. Approximately 5.6 liters of straw-colored fluid was removed. The patient was stable throughout the pr ocedure and remained stable upon discharge from Department of Radiology. IMPRESSION: Successful therapeutic paracentesis under ultrasound guidance.
--- NOTE | 2020-08-06 14:23 | P.HPIM ---
History of Present Illness H&P Date: 08/06/20 This is a 68-year-old male patient of Dr. Louie Alaniz with past medical history of chronic immunosuppresive drugs for bilateral lung transplant in 2008 at [facility] with underlying COPD, pulmonary fibrosis, hypogammaglobulinemia on IVIG replacement mponthly regimen with iv ig, chronic kidney disease stage III, diabetes mellitus type 2, osteoarthritis of spine with degenerative disc disease, gastroesophageal reflux disease, hypertension. he was last hosptialized 07/2019 for [facility] and was seen by dr monzon at that time currently Patient gives history of increasing shortness of 1 month duration with abdominal distention and abdominal discomfort, he got wrose with increasing emesis,anorexia weight gain. he has hemoptysis from increasing cough. In the emergency department wbc was at 6.2 with a hemoglobin of 12.4 and a platelet count of 100BUN is 37 with a creatinine of 1.5 and a sodium level of 134 with a potassium level of 3.9. His UA was negative. Troponin was negative.. D-dimer was at 1.45 with a normal inr. Amylase and lipase were within normal limits. LFT are within normal limits including lipase creat at 1.59. UA was negative Covid 19 testing was negative. CAT scan of the abdomen showed moderate to large amount of ascites throughout the abdomen and pelvis. This was consistent with chronic liver disease as the patient also had some hepatosplenomegaly. The liver was suggestive of underlying cirrhotic liver disease. There is evidence of cholelithiasis.. CXR showsThe lung bases some blunting costophrenic angle. There are small better pleural effusion. Patient was admitted with consult to dr Monzon pulmonary and Dr Suresh gi for ascites patient underwent abdominal paracenthesis today 5.6 L asciteic fluid drained out by IR. Review of Systems Constitutional: Reports anorexia, Reports chills, Reports fatigue, Reports lethargy, Reports malaise, Reports poor appetite, Reports weight gain, Denies as per HPI, Denies chronic headaches, Denies chronic pain, Denies daytime sleepiness, Denies fever, Denies night sweats, Denies sweats, Denies weakness, Denies weight loss Ears, nose, mouth and throat: Reports as per HPI Cardiovascular: Reports as per HPI, Reports decreased exercise tolerance, Reports dyspnea on exertion, Denies chest pain, Denies claudication, Denies edema, Denies high blood pressure, Denies irregular heart beat, Denies leg edema, Denies lightheadedness, Denies orthopnea, Denies palpitations, Denies paroxysmal nocturnal dyspnea, Denies phlebitis, Denies rapid heart beat, Denies shortness of breath, Denies syncope Respiratory: Reports as per HPI, Denies congestion, Denies cough, Denies cough with sputum, Denies dyspnea, Denies excessive sputum, Denies hemoptysis, Denies home oxygen, Denies pain, Denies pain on inspiration, Denies pleurisy, Denies respiratory infections, Denies sleep apnea, Denies snoring, Denies wheezing Gastrointestinal: Reports as per HPI, Denies abdominal pain, Denies belching, Denies bloating, Denies BRBPR, Denies change in bowel habits, Denies coffee ground emesis, Denies constipation, Denies diarrhea, Denies dyspepsia, Denies e sravanthi satiety, Denies excessive gas, Denies heartburn, Denies hematemesis, Denies hematochezia, Denies indigestion, Denies jaundice, Denies lactose intolerance, Denies loss of appetite, Denies melena, Denies nausea, Denies vomiting Genitourinary: Reports as per HPI Musculoskeletal: Reports gait dysfunction, Reports limitation of motion, Denies as per HPI, Denies arm numbness/tingling, Denies atrophy, Denies fractures, Denies frequent falls, Denies hot joints, Denies leg numbness/tingling, Denies loss of height, Denies low back pain, Denies morning stiffness, Denies muscle cramps, Denies muscle weakness, Denies myalgias, Denies neck pain, Denies neck stiffness, Denies prior amputations, Denies redness of joints, Denies shooting arm pain, Denies shooting leg pain Integumentary: Reports as per HPI Neurological: Reports as per HPI Psychiatric: Reports as per HPI, Reports change in sleep habits, Reports memory loss Endocrine: Reports as per HPI, Reports weight change, Denies cold intolerance, Denies deepening of the voice, Denies excessive sweating, Denies excessive thirst, Denies fatigue, Denies flushing, Denies heat intolerance, Denies high blood sugars, Denies increase in ring/shoe/hat size, Denies low blood sugars, Denies nocturia, Denies palpitations, Denies polydipsia, Denies polyphagia, Denies polyuria, Denies proptosis, Denies recent glucocorticoid use, Denies thyroid mass Hematologic/Lymphatic: Reports as per HPI Allergic/Immunologic: Reports as per HPI Past Medical History Past Medical History: COPD, Diabetes Mellitus, GERD/Reflux, Osteoarthritis (OA), Pneumonia, Prostate Disorder, Renal Disease, Respiratory Disorder Additional Past Medical History / Comment(s): History of COPD and pulmonary fibrosis. The patient underwent bilateral lung transplantation and 2008. He has diabetes, chronic arthritis with back pain, degenerative disc disease, chronic stage III kidney disease, chronic hypogammaglobulinemia and the patient is receiving IVIG treatment on outpatient basis and the last treatment was in June 2019, left lung pneumonia in July 2019 requiring hospitalization History of Any Multi-Drug Resistant Organisms: None Reported Past Surgical History: Heart Catheterization, Hernia Repair Additional Past Surgical History / Comment(s): RT & LT CATARACT REMOVED/COLONOSCOPY/BILATERAL LUNG TRANSPLANT 20082013 HERNIA REPAIR UMBILICAL, LEFT INGUINAL AND FEMEROL. TURP - 2015 Past Anesthesia/Blood Transfusion Reactions: No Reported Reaction Past Psychological History: Anxiety, Depression Smoking Status: Former smoker - Past Family History Mother Family Medical History: No Reported History Additional Family Medical History / Comment(s): Mother at age 73 from asthma or COPD. Father Additional Family Medical History / Comment(s): Father at age 68 from asthma. Brother(s) Additional Family Medical History / Comment(s): Patient states he has 6 brothers and 5 sisters and is not sure of their medical history. Some have passed. Patient has one daughter with no major medical problems. Medications and Allergies Home Medications Medication Instructions Recorded Confirmed Type Alendronate Sodium [Fosamax] 70 mg PO WE 11/06/13 08/05/20 History Ergocalciferol (Vitamin D2) 50,000 units PO Q15D 11/06/13 08/05/20 History [Drisdol] Fludrocortisone [Florinef] 0.1 mg PO QAM 11/06/13 08/05/20 History Metoprolol Succinate (ER) [Toprol 100 mg PO QAM 11/06/13 08/05/20 History XL] Sulfamethox-Tmp 800-160Mg [Bactrim 1 tab PO MOWEFR 11/06/13 08/05/20 History DS 800-160 mg] Tacrolimus [Prograf] 2 mg PO BID 11/06/13 08/05/20 History Insulin Detemir (Levemir) [Levemir] 40 unit SQ HS 01/02/14 08/05/20 History Azithromycin [Zithromax] 250 mg PO MOWEFR 11/05/15 08/05/20 History Multivitamins, Thera [Multivitamin 1 tab PO DAILY 07/23/16 08/05/20 History (formulary)] Ferrous Sulfate [Iron (65 MG 325 mg PO DAILY 09/29/16 08/05/20 History Elemental)] Allopurinol [Zyloprim] 100 mg PO DAILY 05/06/17 08/05/20 History Metoclopramide [Reglan] 10 mg PO QAM 05/06/17 08/05/20 History amLODIPine [Norvasc] 10 mg PO DAILY 05/06/17 08/05/20 History Omeprazole [PriLOSEC] 40 mg PO DAILY 03/02/18 08/05/20 History Sertraline [Zoloft] 50 mg PO DAILY 03/02/18 08/05/20 History Lisinopril-Hctz 10-12.5 mg 1 tab PO DAILY 07/11/19 08/05/20 History [Zestoretic 10-12.5] Tacrolimus [Prograf] 0.5 mg PO BID 08/16/19 08/05/20 History Tamsulosin HCl [Flomax] 0.4 mg PO DAILY 08/16/19 08/05/20 History predniSONE 5 mg PO DAILY #0 08/21/19 08/05/20 Rx Atorvastatin [Lipitor] 10 mg PO DAILY 05/30/20 08/05/20 History Potassium Citrate [Urocit-K] 10 meq PO TID 05/30/20 08/05/20 History HYDROcodone/APAP 7.5-325MG [[place] 1 tab PO TID PRN 08/05/20 08/05/20 History 7.5-325] Sodium Bicarbonate 650 mg PO BID 08/05/20 08/05/20 History Allergies Allergy/AdvReac Type Severity Reaction Status Date / Time clarithromycin [From Biaxin] AdvReac instructed Verified 08/05/20 12:31 not to take r/t lung transplant ibuprofen [From Motrin] AdvReac Abdominal Verified 08/05/20 12:31 Pain Physical Exam Vitals: Vital Signs Temp Pulse Pulse Resp BP BP Pulse Ox 08/06/20 11:21 70 18 136/75 08/06/20 11:08 66 18 138/70 08/06/20 10:48 18 150/72 96 08/06/20 10:32 68 18 142/73 95 08/06/20 10:00 74 18 150/73 95 08/06/20 07:23 97.9 F 67 18 144/75 96 08/06/20 02:15 98.4 F 64 16 138/76 95 08/05/20 20:25 98.3 F 64 16 123/63 93 L 08/05/20 16:05 18 08/05/20 15:20 98.0 F 70 18 141/73 92 L 08/05/20 14:13 67 18 140/74 94 L Intake and Output 08/05/20 08/06/20 08/06/20 22:59 06:59 14:59 Other: # Voids 1 2 - Constitutional General appearance: cooperative, no acute distress - EENT Eyes: anicteric sclerae, EOMI, PERRLA, dentition normal, normal appearance ENT: NA/AT, normal oropharynx - Neck Neck: normal ROM - Respiratory Respiratory: bilateral: CTA, diminished, negative: dullness, rales, rhonchi - Cardiovascular Rhythm: regular Heart sounds: normal: S1, S2 Abnormal Heart Sounds: no systolic murmur, no diastolic murmur, no rub, no S3 Gallop, no S4 Gallop, no click, no other - Gastrointestinal General gastrointestinal: distended, organomegaly, soft - Integumentary Integumentary: decreased turgor, normal - Neurologic Neurologic: CNII-XII intact - Musculoskeletal Musculoskeletal: gait normal, strength equal bilaterally - Psychiatric Psychiatric: A&O x's 3, appropriate affect, intact judgment & insight Results CBC & Chem 7: 08/06/20 06:42 08/06/20 06:42 Labs: Abnormal Lab Results - Last 24 Hours (Table) 08/05/20 08/05/20 08/05/20 Range/Units 12:00 14:04 17:42 WBC (4.50-10.00) X 10*3/uL RBC (4.40-5.60) X 10*6/uL Hgb (13.0-17.0) g/dL Hct (39.6-50.0) % MCV (80.0-97.0) fL MCHC (32.0-37.0) g/dL Plt Count (140-440) X 10*3/uL MPV (9.5-12.2) fL BUN (9.0-27.0) mg/dL Creatinine (0.6-1.5) mg/dL Est GFR (CKD-EPI)AfAm (60.0-200.0) Est GFR (CKD-EPI)NonAf (60.0-200.0) BUN/Creatinine Ratio (12.00-20.00) Ratio Glucose (70-110) mg/dL POC Glucose (mg/dL) 214 H (75-99) mg/dL Calcium (8.7-10.3) mg/dL Alkaline Phosphatase (41-126) U/L C-Reactive Protein (0.0-0.8) mg/dL Total Protein (6.2-8.2) g/dL Albumin (3.80-4.90) g/dL Albumin/Globulin Ratio (1.60-3.17) g/dL Procalcitonin 0.58 H (0.02-0.09) ng/mL IgA 366.0 H (60.0-350.0) mg/dL IgM <16.9 L (40.0-280.0) mg/dL 08/05/20 08/06/20 08/06/20 Range/Units 20:25 06:42 06:42 WBC 3.08 L (4.50-10.00) X 10*3/uL RBC 3.27 L (4.40-5.60) X 10*6/uL Hgb 10.3 L (13.0-17.0) g/dL Hct 32.6 L (39.6-50.0) % MCV 99.7 H (80.0-97.0) fL MCHC 31.6 L (32.0-37.0) g/dL Plt Count 96 L (140-440) X 10*3/uL MPV 12.4 H (9.5-12.2) fL BUN 34.0 H (9.0-27.0) mg/dL Creatinine 1.6 H (0.6-1.5) mg/dL Est GFR (CKD-EPI)AfAm 49.5 L (60.0-200.0) Est GFR (CKD-EPI)NonAf 42.7 L (60.0-200.0) BUN/Creatinine Ratio 21.25 H (12.00-20.00) Ratio Glucose 195 H (70-110) mg/dL POC Glucose (mg/dL) 330 H (75-99) mg/dL Calcium 7.7 L (8.7-10.3) mg/dL Alkaline Phosphatase 130 H (41-126) U/L C-Reactive Protein 2.3 H (0.0-0.8) mg/dL Total Protein 5.8 L (6.2-8.2) g/dL Albumin 3.50 L (3.80-4.90) g/dL Albumin/Globulin Ratio 1.52 L (1.60-3.17) g/dL Procalcitonin (0.02-0.09) ng/mL IgA (60.0-350.0) mg/dL IgM (40.0-280.0) mg/dL 08/06/20 08/06/20 08/06/20 Range/Units 06:42 06:50 11:43 WBC (4.50-10.00) X 10*3/uL RBC (4.40-5.60) X 10*6/uL Hgb (13.0-17.0) g/dL Hct (39.6-50.0) % MCV (80.0-97.0) fL MCHC (32.0-37.0) g/dL Plt Count (140-440) X 10*3/uL MPV (9.5-12.2) fL BUN (9.0-27.0) mg/dL Creatinine (0.6-1.5) mg/dL Est GFR (CKD-EPI)AfAm (60.0-200.0) Est GFR (CKD-EPI)NonAf (60.0-200.0) BUN/Creatinine Ratio (12.00-20.00) Ratio Glucose (70-110) mg/dL POC Glucose (mg/dL) 195 H 201 H (75-99) mg/dL Calcium (8.7-10.3) mg/dL Alkaline Phosphatase (41-126) U/L C-Reactive Protein (0.0-0.8) mg/dL Total Protein (6.2-8.2) g/dL Albumin (3.80-4.90) g/dL Albumin/Globulin Ratio (1.60-3.17) g/dL Procalcitonin 0.35 H (0.02-0.09) ng/mL IgA (60.0-350.0) mg/dL IgM (40.0-280.0) mg/dL Laboratory Results WBC 3.08 X 10*3/uL (4.50-10.00) L 08/06/20 06:42 RBC 3.27 X 10*6/uL (4.40-5.60) L 08/06/20 06:42 Hgb 10.3 g/dL (13.0-17.0) L 08/06/20 06:42 Hct 32.6 % (39.6-50.0) L 08/06/20 06:42 MCV 99.7 fL (80.0-97.0) H 08/06/20 06:42 MCH 31.5 pg (27.0-32.0) 08/06/20 06:42 MCHC 31.6 g/dL (32.0-37.0) L 08/06/20 06:42 RDW 13.8 % (11.5-14.5) 08/06/20 06:42 Plt Count 96 X 10*3/uL (140-440) L 08/06/20 06:42 MPV 12.4 fL (9.5-12.2) H 08/06/20 06:42 Absolute Nucleated RBC 0 X 10*3/uL (0.00-0.00) 08/06/20 06:42 Neutrophils % 78 % 08/05/20 12:00 Lymphocytes % 8 % 08/05/20 12:00 Monocytes % 9 % 08/05/20 12:00 Eosinophils % 2 % 08/05/20 12:00 Basophils % 1 % 08/05/20 12:00 Neutrophils # 4.9 k/uL (1.3-7.7) 08/05/20 12:00 Lymphocytes # 0.5 k/uL (1.0-4.8) L 08/05/20 12:00 Monocytes # 0.6 k/uL (0-1.0) 08/05/20 12:00 Eosinophils # 0.1 k/uL (0-0.7) 08/05/20 12:00 Basophils # 0.0 k/uL (0-0.2) 08/05/20 12:00 NRBC/100 WBC Diff 0 /100 WBCS (0.0-0.0) 08/06/20 06:42 Macrocytosis Slight 08/05/20 12:00 PT 10.9 sec (9.0-12.0) 08/05/20 12:00 INR 1.0 (<1.2) 08/05/20 12:00 APTT 24.0 sec (22.0-30.0) 08/05/20 12:00 D-Dimer 1.45 mg/L FEU (<0.60) H 08/05/20 12:00 Sodium 138 mmol/L (135-145) 08/06/20 06:42 Potassium 4.3 mmol/L (3.5-5.5) 08/06/20 06:42 Chloride 106 mmol/L (96-109) 08/06/20 06:42 Carbon Dioxide 25.4 mmol/L (21.6-31.8) 08/06/20 06:42 Anion Gap 6.60 mmol/L (4.00-12.00) 08/06/20 06:42 BUN 34.0 mg/dL (9.0-27.0) H 08/06/20 06:42 Creatinine 1.6 mg/dL (0.6-1.5) H 08/06/20 06:42 Est GFR (CKD-EPI)AfAm 49.5 (60.0-200.0) L 08/06/20 06:42 Est GFR (CKD-EPI)NonAf 42.7 (60.0-200.0) L 08/06/20 06:42 BUN/Creatinine Ratio 21.25 Ratio (12.00-20.00) H 08/06/20 06:42 Glucose 195 mg/dL (70-110) H 08/06/20 06:42 POC Glucose (mg/dL) 201 mg/dL (75-99) H 08/06/20 11:43 POC Glu Shower Screen Installer ID Linda Ferrera 08/06/20 11:43 Calcium 7.7 mg/dL (8.7-10.3) L 08/06/20 06:42 Ferritin 104.7 ng/mL (22.0-322.0) 08/06/20 06:42 Total Bilirubin 0.5 mg/dL (0.3-1.2) 08/06/20 06:42 AST 33 U/L (14-35) 08/06/20 06:42 ALT 28 U/L (10-49) 08/06/20 06:42 Alkaline Phosphatase 130 U/L (41-126) H 08/06/20 06:42 Lactate Dehydrogenase 140 U/L (120-246) 08/06/20 06:42 Troponin I <0.012 ng/mL (0.000-0.034) 08/05/20 12:00 C-Reactive Protein 2.3 mg/dL (0.0-0.8) H 08/06/20 06:42 Total Protein 5.8 g/dL (6.2-8.2) L 08/06/20 06:42 Albumin 3.50 g/dL (3.80-4.90) L 08/06/20 06:42 Globulin 2.3 g/dL (1.6-3.3) 08/06/20 06:42 Albumin/Globulin Ratio 1.52 g/dL (1.60-3.17) L 08/06/20 06:42 Amylase 41 U/L (30-110) 08/05/20 12:00 Lipase 42 U/L (23-300) 08/05/20 12:00 Procalcitonin 0.35 ng/mL (0.02-0.09) H 08/06/20 06:42 Urine Color Yellow 08/05/20 12:00 Urine Appearance Clear (Clear) 08/05/20 12:00 Urine pH 7.5 (5.0-8.0) 08/05/20 12:00 Ur Specific [place] 1.013 (1.001-1.035) 08/05/20 12:00 Urine Protein Negative (Negative) 08/05/20 12:00 Urine Glucose (UA) Negative (Negative) 08/05/20 12:00 Urine Ketones Negative (Negative) 08/05/20 12:00 Urine Blood Negative (Negative) 08/05/20 12:00 Urine Nitrite Negative (Negative) 08/05/20 12:00 Urine Bilirubin Negative (Negative) 08/05/20 12:00 Urine Urobilinogen <2.0 mg/dL (<2.0) 08/05/20 12:00 Ur Leukocyte Esterase Small (Negative) H 08/05/20 12:00 Urine RBC <1 /hpf (0-5) 08/05/20 12:00 Urine WBC 2 /hpf (0-5) 08/05/20 12:00 Ur Squamous Epith Cells <1 /hpf (0-4) 08/05/20 12:00 Urine Mucus Rare /hpf (None) H 08/05/20 12:00 Fluid Source Ascitic 08/06/20 11:00 Fluid Color Yellow 08/06/20 11:00 Fluid Appearance Clear 08/06/20 11:00 Fluid RBC 570 /uL 08/06/20 11:00 Fluid Nucleated Cells 89 /uL 08/06/20 11:00 Fluid Polynuclear WBCs 29 % 08/06/20 11:00 Fluid Mononuclear WBCs 71 % 08/06/20 11:00 IgG 1190.0 mg/dL (700.0-1600.0) 08/05/20 14:04 IgA 366.0 mg/dL (60.0-350.0) H 08/05/20 14:04 IgM <16.9 mg/dL (40.0-280.0) L 08/05/20 14:04 Coronavirus (PCR) Not Detected (Not Detectd) 08/05/20 14:04 Hepatitis A IgM Ab Non-Reactive (Non-Reactive) 08/05/20 12:00 Hep Bs Antigen Non-Reactive (Non-Reactive) 08/05/20 12:00 Hep B Core IgM Ab Non-Reactive (Non-Reactive) 08/05/20 12:00 Hep C IgG Ab Non-Reactive (Non-Reactive) 08/05/20 12:00 Influenza Type A RNA Not Detected (Not Detectd) 08/06/20 06:54 Influenza Type B (PCR) Not Detected (Not Detectd) 08/06/20 06:54 Thrombosis Risk Factor Assmnt - Choose All That Apply Each Risk Factor Represents 2 Points: Age 61-74 years Thrombosis Risk Factor Assessment Total Risk Factor Score: 2 Thrombosis Risk Factor Assessment Level: Low Risk Assessment and Plan Plan: 1. Acute and worsening shortness of breath releated to increasing ascites and small pleural effusion and right pneumonia . large volume paracenthesis performed removing 5.6 L ascitic fluid sent for analyiss and culture on08/06/20.plan for thoacenthesis today by dr monzon. Continue Levaquin, DuoNeb treatments 4 times daily every 4 hours as needed, stress dose hydrocortisone 100 mg q 8hr iv zosym levaquin 2. History of bilateral lung transplant in 2008 at [facility]. Prograf 2.5 mg twice daily on hold per pulmonary till penumonia clears. Patient is usually on prednisone 5 mg daily and Bactrim Wednesday , tacrolimus. . hydrocortisone 100 mg iv q 8 hrs provided 3 right pneumonia with pneumonic effusion sepsis present prior to admission on IV levaquin and zosyn, prograf recommended to be held per recommendation byt pulmo till clearing of penumonia 4. chronic immunosuppressive state on on chronic prednisone as well as transplant rejection medications 5 acute hypoxemic respiratory failure secondary to pneumonia underlying pulmonary fibrosis present prior to admission requiring 2 l O2 by NC 6 Hepatosplenomegaly with ascites, consult gastroenterlogy, cytology from paracentesis sent 7 Hypertension. Continue Norvasc 10 mg daily Toprol-XL 100 mg daily. 8 Hypogammaglobulinemia on IVIG replacement therapy as an outpatient. IgG level normal currently. on [place] levaquin iv zosyn 9 Diabetes mellitus type 2, insulin requiring. Continue Levemir 50 units every morning, NovoLog scale before meals and at bedtime. 10 Chronic kidney disease stage III. Continue sodium bicarb 1300 mg twice daily, calcium carbonate 500 mg Wednesday and Wednesday. 11 Benign prostatic hypertrophy. Continue Flomax 0.4 mg daily. 12 Gastroesophageal reflux disease and GI prophylaxis. Protonix. 13 Recurrent depression. Continue Zoloft 50 mg daily. 14 DVT prophylaxis. Heparin subcu. Patient will be admitted to the hospital for a minimum of 2 night stay. Discharge plan: Home with significant other.
[2020-08-06 17:00] LABS: Glucose,Whole Blood 311 mg/dL (75-99)
[2020-08-06] MEDS: LEVOFLOXACIN 750 MG TAB PO SCH (17:28)
[2020-08-06 20:31] LABS: Glucose,Whole Blood 315 mg/dL (75-99)
[2020-08-06] MEDS: INSULIN DETEMIR (LEVEMIR) 100 UNIT/ML SYR SQ SCH (20:59)
[2020-08-06 21:28] LABS: Glucose, BF Source Paracentesis Fluid; Glucose, Body Fluid 215 mg/dL; LDH, Body Fluid Source Paracentesis Fluid; Total Protein, Body Fluid 2500 mg/dL
--- NOTE | 2020-08-06 22:45 | PN ---
PROGRESS NOTE DATE OF SERVICE: 08/06/2020 REASON FOR FOLLOWUP: Pneumonia. INTERVAL HISTORY: Patient is currently afebrile. The patient is breathing more comfortably. Patient is status post thoracocentesis as well as paracentesis. He tolerated the procedures. No chest pain. Occasional cough and is bringing up some sputum. Sputum not collected, though. No nausea, no vomiting and no further diarrhea. PHYSICAL EXAMINATION: Blood pressure 149/74 with a pulse of 63, temperature of 97.8. He is 96% on room air. General description is an elderly male up in the room in no distress. RESPIRATORY SYSTEM: Unlabored breathing with decreased breath sounds at the base. No wheeze. HEART: S1, S2. Regular rate and rhythm. ABDOMEN: Soft. No tenderness. LABS: Paracentesis fluid: White count was only 89. Hemoglobin is 10 with a white count of 3.08. DIAGNOSTIC IMPRESSION AND PLAN: Patient admitted to hospital with abdominal distention, vomiting, shortness of breath and cough with right-sided pneumonia and concern about possible aspiration versus a Gram-negative. The patient is status post paracentesis. Those cultures will be followed. Trying to obtain a sputum sample. Patient is covered with Zosyn; to continue while waiting for the culture to finalize and monitor clinical course closely. MMODL / IJN: [id number] /
[2020-08-07] MEDS: HYDROCORTISONE SUCCINATE 100 MG/2 ML VIAL IV SCH ×4 (00:52→23:52)
[2020-08-07 06:52] LABS: Glucose,Whole Blood 144 mg/dL (75-99)
[2020-08-07] MEDS: HEPARIN SODIUM,PORCINE 5,000 UNIT/ML 1 ML VIAL SQ SCH ×2 (08:17→20:50)
[2020-08-07] MEDS: INSULIN ASPART (NovoLOG) 100 UNIT/ML VIAL SQ SCH ×4 (08:17→20:51)
[2020-08-07] MEDS: PANTOPRAZOLE 40 MG/10 ML VIAL IVP SCH (08:18)
[2020-08-07] MEDS: POTASSIUM CITRATE 10 MEQ TABLET.ER PO SCH ×3 (08:18→20:51)
[2020-08-07] MEDS: SODIUM BICARBONATE TAB 650 MG TAB PO SCH ×2 (08:18→20:51)
[2020-08-07] MEDS: amLODIPine 10 MG TAB PO SCH (08:18)
[2020-08-07] MEDS: TAMSULOSIN 0.4 MG CAP.ER.24H PO SCH (08:18)
[2020-08-07] MEDS: METOCLOPRAMIDE 10 MG TAB PO SCH (08:19)
[2020-08-07] MEDS: METOPROLOL SUCCINATE (ER) 100 MG TAB.ER.24H PO SCH (08:19)
[2020-08-07] MEDS: ATORVASTATIN 10 MG TAB PO SCH (08:19)
[2020-08-07] MEDS: SERTRALINE 50 MG TAB PO SCH (08:19)
[2020-08-07] MEDS: allopurinoL 100 MG TAB PO SCH (08:19)
[2020-08-07] MEDS: TACROLIMUS 0.5 MG CAP PO SCH ×2 (08:19→20:51)
[2020-08-07] MEDS: MULTIVITAMINS, THERA 1 EACH TAB PO SCH (08:19)
[2020-08-07] MEDS: LISINOPRIL-HCTZ 10-12.5 MG 1 EACH TAB PO SCH (08:19)
[2020-08-07] MEDS: FERROUS SULFATE 325 MG TAB PO SCH (08:19)
[2020-08-07] MEDS: PIPERACILLIN-TAZOBACTAM 3.375 GM in SODIUM CHLORIDE 0.9% 100 ML IVPB SCH ×3 (08:20→23:53)
[2020-08-07] MEDS: SODIUM CHLORIDE 0.9% 1,000 ML IV SCH (08:20)
--- NOTE | 2020-08-07 08:20 | XR ---
EXAMINATION TYPE: XR chest 1V portable DATE OF EXAM: 08/07/2020 COMPARISON: Prior chest 08/06/2020 HISTORY: Pneumonia TECHNIQUE: Single frontal view of the chest is obtained. FINDINGS: Postop changes are again seen. There is no significant change in the apical pleural thicke zoila, blunting the right costophrenic angle. Cardiac mediastinal silhouette shows a similar appearanc e accounting for differences in technique. Airspace disease is again noted in the right upper lobe, p erihilar region. No evident pneumothorax. IMPRESSION: Correlate for pneumonia versus edema. Less confluent density at the right upper lobe as compared to prior exam suggests improvement in aeration.
[2020-08-07] MEDS: HYDROcodone/APAP 7.5-325MG 1 EACH TAB PO PRN ×3 (08:28→23:47)
[2020-08-07] MEDS ORDERED: SULFAMETHOX-TMP 800-160MG 1 EACH TAB PO SCH (09:00)
[2020-08-07] MEDS ORDERED: AZITHROMYCIN 250 MG TAB PO SCH (09:00)
[2020-08-07 11:19] LABS: Glucose,Whole Blood 243 mg/dL (75-99)
--- NOTE | 2020-08-07 11:38 | P.CONS ---
History of Present Illness - Reason for Consult Consult date: 08/06/20 Ascites Requesting physician: Lilian Whyte - Chief Complaint Abdominal distention and pain - History of Present Illness 69-year-old male with multiple medical comorbidities including hypogammaglobulinemia on IVIG therapy, prior double lung transplantation on immunosuppressive therapy, chronic kidney disease, diabetes mellitus, osteoarthritis, GERD and hypertension who presented to the hospital due to complaints of abdominal discomfort and distention. Patient had reported increasing abdominal distention over the past few months prior to presentation. He does report some generalized pain secondary to the distention and associated with decreased oral intake. She had a computed tomography scan on the abdomen on presentation which showed moderate ascites with a sclerotic-appearing liver and hepatosplenomegaly. He is status post paracentesis with 5.6 L of ascitic fluid removed by the interventional radiology service. On questioning the patient denies any history of liver disease, primary ascites or paracentesis, excessive alcohol use, encephalopathy or GI bleed. He does believe his last colonoscopy was in the past few years with surgical service and reports a remote history of EGD. Laboratory evaluation on presentation significant for WBC 3, hemoglobin 10.3, platelet count 96,000 with total bilirubin 0.5, alkaline phosphatase 28, AST 33 and ALT 28. Review of Systems REVIEW OF SYSTEMS: CONSTITUTIONAL: Denies any fevers, chills or fatigue. CARDIOVASCULAR: Denies any chest pain, palpitations high or low blood pressures RESPIRATORY: Denies any shortness of breath, hemoptysis or cough. GENITOURINARY: No dysuria or hematuria. MUSCULOSKELETAL: No weakness reported. SKIN: Denies any new rashes or lesions, jaundice or pallor. PSYCHIATRIC: Denies any depression or anxiety. NEUROLOGY: Denies headache, denies any new focal deficits. EARS/NOSE/THROAT: No recent hearing change, congestion, nasal discharge or sore throat. EYES: No pain in eyes, discharge or change in vision. GASTROINTESTINAL: As per HPI. Past Medical History Past Medical History: COPD, Diabetes Mellitus, GERD/Reflux, Osteoarthritis (OA), Pneumonia, Prostate Disorder, Renal Disease, Respiratory Disorder Additional Past Medical History / Comment(s): History of COPD and pulmonary fibrosis. The patient underwent bilateral lung transplantation and 2008. He has diabetes, chronic arthritis with back pain, degenerative disc disease, chronic stage III kidney disease, chronic hypogammaglobulinemia and the patient is receiving IVIG treatment on outpatient basis and the last treatment was in June 2019, left lung pneumonia in July 2019 requiring hospitalization History of Any Multi-Drug Resistant Organisms: None Reported Past Surgical History: Heart Catheterization, Hernia Repair Additional Past Surgical History / Comment(s): RT & LT CATARACT REMOVED/COLONOSCOPY/BILATERAL LUNG TRANSPLANT 20082013 HERNIA REPAIR UMBILICAL, LEFT INGUINAL AND FEMEROL. TURP - 2015 Past Anesthesia/Blood Transfusion Reactions: No Reported Reaction Past Psychological History: Anxiety, Depression Smoking Status: Former smoker - Past Family History Mother Family Medical History: No Reported History Additional Family Medical History / Comment(s): Mother at age 73 from asthma or COPD. Father Additional Family Medical History / Comment(s): Father at age 68 from asthma. Brother(s) Additional Family Medical History / Comment(s): Patient states he has 6 brothers and 5 sisters and is not sure of their medical history. Some have passed. P marivel has one daughter with no major medical problems. Medications and Allergies Home Medications Medication Instructions Recorded Confirmed Type Alendronate Sodium [Fosamax] 70 mg PO WE 11/06/13 08/05/20 History Ergocalciferol (Vitamin D2) 50,000 units PO Q15D 11/06/13 08/05/20 History [Drisdol] Fludrocortisone [Florinef] 0.1 mg PO QAM 11/06/13 08/05/20 History Metoprolol Succinate (ER) [Toprol 100 mg PO QAM 11/06/13 08/05/20 History XL] Sulfamethox-Tmp 800-160Mg [Bactrim 1 tab PO MOWEFR 11/06/13 08/05/20 History DS 800-160 mg] Tacrolimus [Prograf] 2 mg PO BID 11/06/13 08/05/20 History Insulin Detemir (Levemir) [Levemir] 40 unit SQ HS 01/02/14 08/05/20 History Azithromycin [Zithromax] 250 mg PO MOWEFR 11/05/15 08/05/20 History Multivitamins, Thera [Multivitamin 1 tab PO DAILY 07/23/16 08/05/20 History (formulary)] Ferrous Sulfate [Iron (65 MG 325 mg PO DAILY 09/29/16 08/05/20 History Elemental)] Allopurinol [Zyloprim] 100 mg PO DAILY 05/06/17 08/05/20 History Metoclopramide [Reglan] 10 mg PO QAM 05/06/17 08/05/20 History amLODIPine [Norvasc] 10 mg PO DAILY 05/06/17 08/05/20 History Omeprazole [PriLOSEC] 40 mg PO DAILY 03/02/18 08/05/20 History Sertraline [Zoloft] 50 mg PO DAILY 03/02/18 08/05/20 History Lisinopril-Hctz 10-12.5 mg 1 tab PO DAILY 07/11/19 08/05/20 History [Zestoretic 10-12.5] Tacrolimus [Prograf] 0.5 mg PO BID 08/16/19 08/05/20 History Tamsulosin HCl [Flomax] 0.4 mg PO DAILY 08/16/19 08/05/20 History predniSONE 5 mg PO DAILY #0 08/21/19 08/05/20 Rx Atorvastatin [Lipitor] 10 mg PO DAILY 05/30/20 08/05/20 History Potassium Citrate [Urocit-K] 10 meq PO TID 05/30/20 08/05/20 History HYDROcodone/APAP 7.5-325MG [Van 1 tab PO TID PRN 08/05/20 08/05/20 History 7.5-325] Sodium Bicarbonate 650 mg PO BID 08/05/20 08/05/20 History Allergies Allergy/AdvReac Type Severity Reaction Status Date / Time clarithromycin [From Biaxin] AdvReac instructed Verified 08/05/20 12:31 not to take r/t lung transplant ibuprofen [From Motrin] AdvReac Abdominal Verified 08/05/20 12:31 Pain Physical Exam Vitals: Vital Signs Temp Pulse Resp BP Pulse Ox 08/06/20 11:21 70 18 136/75 08/06/20 11:08 66 18 138/70 08/06/20 10:48 18 150/72 96 08/06/20 10:32 68 18 142/73 95 08/06/20 10:00 74 18 150/73 95 08/06/20 07:23 97.9 F 67 18 144/75 96 08/06/20 02:15 98.4 F 64 16 138/76 95 08/05/20 20:25 98.3 F 64 16 123/63 93 L 08/05/20 16:05 18 08/05/20 15:20 98.0 F 70 18 141/73 92 L Intake and Output 08/05/20 08/06/20 08/06/20 22:59 06:59 14:59 Other: # Voids 1 2 On physical examination, patient appears comfortable in no apparent distress. HEAD: Normocephalic, atraumatic. EYES: No scleral icterus. No conjunctival injection. MOUTH: No lesions, tongue midline. NECK: Trachea midline, no gross abnormalities. CHEST: Decreased air entry in all harmon, no respiratory distress. HEART: S1-S2 appreciated. ABDOMEN: Soft, mildly distended to palpation. Bowel sounds are positive. No organomegaly. No guarding or rigidity. EXTREMITIES: No pedal edema. SKIN: No rashes, no jaundice. NEUROLOGIC: Alert and oriented x3. No focal deficits. Results CBC & Chem 7: 08/06/20 06:42 08/06/20 06:42 Labs: Abnormal Lab Results - Last 24 Hours (Table) 08/05/20 08/05/20 08/05/20 Range/Units 12:00 14:04 17:42 WBC (4.50-10.00) X 10*3/uL RBC (4.40-5.60) X 10*6/uL Hgb (13.0-17.0) g/dL Hct (39.6-50.0) % MCV (80.0-97.0) fL MCHC (32.0-37.0) g/dL Plt Count (140-440) X 10*3/uL MPV (9.5-12.2) fL BUN (9.0-27.0) mg/dL Creatinine (0.6-1.5) mg/dL Est GFR (CKD-EPI)AfAm (60.0-200.0) Est GFR (CKD-EPI)NonAf (60.0-200.0) BUN/Creatinine Ratio (12.00-20.00) Ratio Glucose (70-110) mg/dL POC Glucose (mg/dL) 214 H (75-99) mg/dL Calcium (8.7-10.3) mg/dL Alkaline Phosphatase (41-126) U/L C-Reactive Protein (0.0-0.8) mg/dL Total Protein (6.2-8.2) g/dL Albumin (3.80-4.90) g/dL Albumin/Globulin Ratio (1.60-3.17) g/dL Procalcitonin 0.58 H (0.02-0.09) ng/mL IgA 366.0 H (60.0-350.0) mg/dL IgM <16.9 L (40.0-280.0) mg/dL 08/05/20 08/06/20 08/06/20 Range/Units 20:25 06:42 06:42 WBC 3.08 L (4.50-10.00) X 10*3/uL RBC 3.27 L (4.40-5.60) X 10*6/uL Hgb 10.3 L (13.0-17.0) g/dL Hct 32.6 L (39.6-50.0) % MCV 99.7 H (80.0-97.0) fL MCHC 31.6 L (32.0-37.0) g/dL Plt Count 96 L (140-440) X 10*3/uL MPV 12.4 H (9.5-12.2) fL BUN 34.0 H (9.0-27.0) mg/dL Creatinine 1.6 H (0.6-1.5) mg/dL Est GFR (CKD-EPI)AfAm 49.5 L (60.0-200.0) Est GFR (CKD-EPI)NonAf 42.7 L (60.0-200.0) BUN/Creatinine Ratio 21.25 H (12.00-20.00) Ratio Glucose 195 H (70-110) mg/dL POC Glucose (mg/dL) 330 H (75-99) mg/dL Calcium 7.7 L (8.7-10.3) mg/dL Alkaline Phosphatase 130 H (41-126) U/L C-Reactive Protein 2.3 H (0.0-0.8) mg/dL Total Protein 5.8 L (6.2-8.2) g/dL Albumin 3.50 L (3.80-4.90) g/dL Albumin/Globulin Ratio 1.52 L (1.60-3.17) g/dL Procalcitonin (0.02-0.09) ng/mL IgA (60.0-350.0) mg/dL IgM (40.0-280.0) mg/dL 08/06/20 08/06/20 08/06/20 Range/Units 06:42 06:50 11:43 WBC (4.50-10.00) X 10*3/uL RBC (4.40-5.60) X 10*6/uL Hgb (13.0-17.0) g/dL Hct (39.6-50.0) % MCV (80.0-97.0) fL MCHC (32.0-37.0) g/dL Plt Count (140-440) X 10*3/uL MPV (9.5-12.2) fL BUN (9.0-27.0) mg/dL Creatinine (0.6-1.5) mg/dL Est GFR (CKD-EPI)AfAm (60.0-200.0) Est GFR (CKD-EPI)NonAf (60.0-200.0) BUN/Creatinine Ratio (12.00-20.00) Ratio Glucose (70-110) mg/dL POC Glucose (mg/dL) 195 H 201 H (75-99) mg/dL Calcium (8.7-10.3) mg/dL Alkaline Phosphatase (41-126) U/L C-Reactive Protein (0.0-0.8) mg/dL Total Protein (6.2-8.2) g/dL Albumin (3.80-4.90) g/dL Albumin/Globulin Ratio (1.60-3.17) g/dL Procalcitonin 0.35 H (0.02-0.09) ng/mL IgA (60.0-350.0) mg/dL IgM (40.0-280.0) mg/dL CT scan - abdomen: report reviewed (Computed tomography scan of the abdomen with findings of moderate ascites, a sclerotic-appearing liver and hepatosplenomegaly with no other acute intra-abdominal pathology noted.) Assessment and Plan (1) Ascites Narrative/Plan: 69-year-old male with multiple medical comorbidities including prior bilateral lung transplant 2 presented with increasing abdominal distention found to have moderate ascites is status post paracentesis with 0.6 L of ascitic fluid removed. Fluid studies are adequate for complete evaluation with an albumin performed, however suspicion is for underlying cirrhosis with computed tomography scan of the abdomen showing moderate ascites with a sclerotic-appe aring liver and hepatosplenomegaly as well as thrombocytopenia noted on laboratory evaluation. Patient has no prior history of ascites, underlying liver disease, or reports of decompensated liver disease denying any prior ascites, encephalopathy or GI bleed. Unclear etiology unsure of the underlying etiology of the patient's prior double lung transplant, however this was secondary to alpha-1 antitrypsin deficiency this may also be the etiology of his cirrhosis, differential also includes medication effect, Coyle cirrhosis or other etiology. Current Visit: Yes Status: Acute Code(s): R18.8 - OTHER ASCITES SNOMED Code(s): 083462764 (2) Lung transplant recipient Current Visit: No Status: Acute Code(s): Z94.2 - LUNG TRANSPLANT STATUS SNOMED Code(s): 230164521 Plan: Supportive care Okay for diet as tolerated, changed to a sodium restricted Continue monitor CBC, BMP, LFTs Patient may benefit from the addition of diuretic therapy however this will have to be done in a careful manner given underlying chronic kidney disease Plan is to order full liver serologies Given patient's complicated medical history may benefit from referral to [facility] hepatology after discharge Thank you for allowing us to participate in the care of the patient we will continue to follow
--- NOTE | 2020-08-07 12:28 | P.PN ---
Subjective Progress Note Date: 08/07/20 HISTORY OF PRESENT ILLNESS This is a 68-year-old male patient of Dr. Louie Alaniz with past medical history of chronic immunosuppresive drugs for bilateral lung transplant in 2008 at [facility] with underlying COPD, pulmonary fibrosis, hypogammaglobulinemia on IVIG replacement mponthly regimen with iv ig, chronic kidney disease stage III, diabetes mellitus type 2, osteoarthritis of spine with degenerative disc disease, gastroesophageal reflux disease, hypertension. he was last hosptialized 07/2019 for [facility] and was seen by dr monzon at that time currently Patient gives history of increasing shortness of 1 month duration with abdominal distention and abdominal discomfort, he got wrose with increasing emesis,anorexia weight gain. he has hemoptysis from increasing cough. In the emergency department wbc was at 6.2 with a hemoglobin of 12.4 and a platelet count of 100BUN is 37 with a creatinine of 1.5 and a sodium level of 134 with a potassium level of 3.9. His UA was negative. Troponin was negative.. D-dimer was at 1.45 with a normal inr. Amylase and lipase were within normal limits. LFT are within normal limits including lipase creat at 1.59. UA was negative Covid 19 testing was negative. CAT scan of the abdomen showed moderate to large amount of ascites throughout the abdomen and pelvis. This was consistent with chronic liver disease as the patient also had some hepatosplenomegaly. The liver was suggestive of underlying cirrhotic liver disease. There is evidence of cholelithiasis.. CXR showsThe lung bases some blunting costophrenic angle. There are small better pleural effusion. Patient was admitted with consult to dr Monzon pulmonary and Dr Demetrice ferrer for ascites patient underwent abdominal paracenthesis today 5.6 L asciteic fluid drained out by IR. 08/07: Patient states that he is feeling good today. He denies any nausea or vomiting. Abdomen is softer today. He denies any shortness of breath. We'll add an incentive spirometry. Patient has been seen by Dr. Villa for possible aspiration pneumonia. She is currently on Zosyn. Repeat chest x-ray reveals correlate for pneumonia versus edema. Less confluent density at the right upper lobe as compared to prior exam suggests improvement in aeration. Patient has also been seen by GI for suspected underlying cirrhosis possibly related to alp olsen antitrypsin deficiency which is underlying cause for the double lung transplant. Patient has been afebrile, heart rate 65, blood pressure 147/77, pulse ox 97% on room air. Blood sugars are elevated anywhere from 144-315. Legionella is negative. REVIEW OF SYSTEMS Constitutional: No fever, no chills, no night sweats. No weight change. No weakness, fatigue or lethargy. No daytime sleepiness. EENT: No headache. No blurred vision or double vision, no loss of vision. No loss of Hearing, no ringing in the ears, no dizziness. No nasal drainage or congestion. No epistaxis. No sore throat. Lungs: Reports improved shortness of breath, reports dyspnea on exertion, denies cough, no sputum production. No wheezing. Cardiovascular: No chest pain, no lower extremity edema. No palpitations. No paroxysmal nocturnal dyspnea. No orthopnea. No lightheadedness or dizziness. No syncopal episodes. Abdominal: No abdominal pain. No nausea, vomiting. No diarrhea. Reports improved abdominal bloating. No constipation. No bloody or tarry stools.. No loss of appetite. Genitourinary: No dysuria, increased frequency, urgency. No urinary retention. Musculoskeletal: No myalgias. No muscle weakness, no gait dysfunction, no frequent falls. No back pain. No neck pain. Integumentary: No wounds, no lesions. No rash or pruritus. No unusual bruising. No change in hair or nails. Neurologic: No aphasia. No facial droop. No change in mentation. No head injury. No headache. No paralysis. No paresthesia. Reports memory loss. Psychiatric: No depression. No anxiety. No mood swings. Endocrine: No abnormal blood sugars. No weight change. No excessive sweating or thirst. No cold intolerance. PHYSICAL EXAMINATION Gen: This is this is a thin disheveled appearing 69-year-old male. HEENT: Head is atraumatic, normocephalic. Pupils equal, round. Sclerae is anicteric. NECK: Supple. No JVD. No lymphadenopathy. No thyromegaly. LUNGS: Clear to auscultation. No wheezes or rhonchi. No intercostal retractions. HEART: Regular rate and rhythm. No murmur. ABDOMEN: Soft. Minimal distention. Significantly improved from yesterday. Bowel sounds are present. No masses. No tenderness. EXTREMITIES: No pedal edema. No calf tenderness. NEUROLOGICAL: Patient is awake, alert and oriented x3. Cranial nerves 2 through 12 are grossly intact. ASSESSMENT AND PLAN 1. Acute and worsening shortness of breath releated to increasing ascites and small pleural effusion and right probable gram-negative pneumonia . large volume paracenthesis performed removing 5.6 L ascitic fluid sent for analyiss and cult ure on08/06/20.status post thoracentesis with Dr. Monzon. Patient is currently on Levaquin and Zosyn 2. History of bilateral lung transplant in 2008 at [facility]. Prograf 2.5 mg twice daily on hold per pulmonary till penumonia clears. Patient is usually on prednisone 5 mg daily and Bactrim Wednesday , tacrolimus. . hydrocortisone 100 mg iv q 8 hrs provided 3 right pneumonia with pneumonic effusion sepsis present prior to admission on IV levaquin and zosyn, prograf recommended to be held per recommendation byt pulmo till clearing of penumonia 4. chronic immunosuppressive state on on chronic prednisone as well as transplant rejection medications 5 acute hypoxemic respiratory failure secondary to pneumonia underlying pulmonary fibrosis present prior to admission requiring 2 l O2 by DC 6 Hepatosplenomegaly with ascites, consult gastroenterlogy, cytology from paracentesis sent 7 Hypertension. Continue Norvasc 10 mg daily Toprol-XL 100 mg daily. 8 Hypogammaglobulinemia on IVIG replacement therapy as an outpatient. IgG level normal currently. on [place] levaquin iv zosyn 9 Diabetes mellitus type 2, insulin requiring. Continue Levemir 50 units every morning, NovoLog scale before meals and at bedtime. 10 Chronic kidney disease stage III. Continue sodium bicarb 1300 mg twice daily, calcium carbonate 500 mg Wednesday and Wednesday. 11 Benign prostatic hypertrophy. Continue Flomax 0.4 mg daily. 12 Gastroesophageal reflux disease and GI prophylaxis. Protonix. 13 Recurrent depression. Continue Zoloft 50 mg daily. 14 DVT prophylaxis. Heparin subcu. DISCHARGE PLAN Home with significant other. Impression and plan of care have been directed as dictated by the signing physician. Tiera Elder nurse practitioner acting as scribe for signing physician. Objective - Vital Signs Vital signs: Vital Signs Temp 98.6 F 08/07/20 07:23 Pulse 65 08/07/20 07:23 Resp 20 08/07/20 07:23 BP 147/77 08/07/20 07:23 Pulse Ox 97 08/07/20 07:23 Intake & Output 08/06/20 08/07/20 08/07/20 18:59 06:59 18:59 Output Total 575 Balance -575 Output: Urine 575 Other: Voiding Method Toilet # Voids 3 - Labs CBC & Chem 7: 08/06/20 06:42 08/06/20 06:42 Labs: Abnormal Lab Results - Last 24 Hours (Table) 08/05/20 08/06/20 08/06/20 Range/Units 14:04 06:42 06:42 BUN 34.0 H (9.0-27.0) mg/dL Creatinine 1.6 H (0.6-1.5) mg/dL Est GFR (CKD-EPI)AfAm 49.5 L (60.0-200.0) Est GFR (CKD-EPI)NonAf 42.7 L (60.0-200.0) BUN/Creatinine Ratio 21.25 H (12.00-20.00) Ratio Glucose 195 H (70-110) mg/dL POC Glucose (mg/dL) (75-99) mg/dL Calcium 7.7 L (8.7-10.3) mg/dL Alkaline Phosphatase 130 H (41-126) U/L C-Reactive Protein 2.3 H (0.0-0.8) mg/dL Total Protein 5.8 L (6.2-8.2) g/dL Albumin 3.50 L (3.80-4.90) g/dL Albumin/Globulin Ratio 1.52 L (1.60-3.17) g/dL Procalcitonin 0.35 H (0.02-0.09) ng/mL IgA 366.0 H (60.0-350.0) mg/dL IgM <16.9 L (40.0-280.0) mg/dL 08/06/20 08/06/20 08/06/20 Range/Units 11:43 16:50 20:29 BUN (9.0-27.0) mg/dL Creatinine (0.6-1.5) mg/dL Est GFR (CKD-EPI)AfAm (60.0-200.0) Est GFR (CKD-EPI)NonAf (60.0-200.0) BUN/Creatinine Ratio (12.00-20.00) Ratio Glucose (70-110) mg/dL POC Glucose (mg/dL) 201 H 311 H 315 H (75-99) mg/dL Calcium (8.7-10.3) mg/dL Alkaline Phosphatase (41-126) U/L C-Reactive Protein (0.0-0.8) mg/dL Total Protein (6.2-8.2) g/dL Albumin (3.80-4.90) g/dL Albumin/Globulin Ratio (1.60-3.17) g/dL Procalcitonin (0.02-0.09) ng/mL IgA (60.0-350.0) mg/dL IgM (40.0-280.0) mg/dL 08/07/20 Range/Units 06:51 BUN (9.0-27.0) mg/dL Creatinine (0.6-1.5) mg/dL Est GFR (CKD-EPI)AfAm (60.0-200.0) Est GFR (CKD-EPI)NonAf (60.0-200.0) BUN/Creatinine Ratio (12.00-20.00) Ratio Glucose (70-110) mg/dL POC Glucose (mg/dL) 144 H (75-99) mg/dL Calcium (8.7-10.3) mg/dL Alkaline Phosphatase (41-126) U/L C-Reactive Protein (0.0-0.8) mg/dL Total Protein (6.2-8.2) g/dL Albumin (3.80-4.90) g/dL Albumin/Globulin Ratio (1.60-3.17) g/dL Procalcitonin (0.02-0.09) ng/mL IgA (60.0-350.0) mg/dL IgM (40.0-280.0) mg/dL Microbiology - Last 24 Hours (Table) 08/06/20 11:00 Gram Stain - Preliminary Paracentesis Fluid Body Fluid Culture - Preliminary 08/06/20 11:00 Anaerobic Culture - Preliminary Paracentesis Fluid 08/05/20 13:44 Blood Culture - Preliminary Blood No Growth after 24 hours 08/05/20 14:00 Blood Culture - Preliminary Blood No Growth after 24 hours
[2020-08-07] MEDS: LEVOFLOXACIN 750 MG TAB PO SCH (13:56)
--- NOTE | 2020-08-07 14:21 | P.PN ---
Subjective Progress Note Date: 08/07/20 On today's evaluation of 08/07/2019, the patient is feeling well. He is on room air oxygen. No significant respiratory distress. Limited cough and congestion. The chest x-ray continues to show improvement in the right upper lobe pulmonary infiltration. The patient underwent a paracentesis and the fluid is still being analyzed. I'm interested in obtaining a fluid albumin level. Note that the patient may have an underlying liver cirrhosis. He is pulling the lung transplantation. On examination Zosyn and Levaquin as broad-spectrum antibiotic coverage. No signs of any bleeding. No altered mentation. Hemodynamically stable. His pro calcitonin for level was at 0.58 and dropped down to 0.35. Objective - Vital Signs Vital signs: Vital Signs Temp 98.9 F 08/07/20 13:53 Pulse 63 08/07/20 13:53 Resp 20 08/07/20 13:53 BP 144/71 08/07/20 13:53 Pulse Ox 98 08/07/20 13:53 Intake & Output 08/06/20 08/07/20 08/07/20 18:59 06:59 18:59 Intake Total 260 Output Total 575 Balance -575 260 Intake: IV 260 Piperacillin-Tazobactam 3 100 .375 gm In Sodium Chloride 0.9% 100 ml @ 25 mls/hr IVPB Q12HR BARB Rx #:[id number] Sodium Chloride 0.9% 1, 160 000 ml @ 20 mls/hr IV . Q24H BARB Rx#:[id number] Output: Urine 575 Other: Voiding Method Toilet # Voids 3 - Exam Gen. appearance the patient is a mild degree of respiratory distress the patient is currently on room air oxygen Head exam was generally normal. There was no scleral icterus or corneal arcus. Mucous membranes were moist. Neck was supple and without jugular venous distension, thyromegaly, or carotid bruits. Carotids were easily palpable bilaterally. There was no adenopathy. Examination of the lungs shows a clamshell incision over the anterior chest related to transplantation. The patient has crackles in right midlung area anteriorly and posteriorly Cardiac exam revealed the PMI to be normally situated and sized. The rhythm was regular and no extrasystoles were noted during several minutes of auscultation. The first and second heart sounds were normal and physiologic splitting of the second heart sound was noted. There were no murmurs, rubs, clicks, or gallops. Abdominal exam revealed normal bowel sounds. The abdomen was soft, non-tender, and without masses, organomegaly, or appreciable enlargement of the abdominal aorta. The patient has an abdominal wall hernia on examination , the patient also has some fluid wave and shifting dullness. No direct tenderness, no rebound tenderness or guarding, and abdomen is less distended compared to yesterday following his large volume paracentesis. Examination of the extremities revealed easily palpable radial, femoral and pedal pulses. There was no cyanosis, clubbing or edema. Examination of the skin revealed no evidence of significant rashes, suspicious appearing nevi or other concerning lesions. - Labs CBC & Chem 7: 08/06/20 06:42 08/06/20 06:42 Labs: Abnormal Lab Results - Last 24 Hours (Table) 08/06/20 08/06/20 08/07/20 Range/Units 16:50 20:29 06:51 POC Glucose (mg/dL) 311 H 315 H 144 H (75-99) mg/dL 08/07/20 Range/Units 11:15 POC Glucose (mg/dL) 243 H (75-99) mg/dL Microbiology - Last 24 Hours (Table) 08/06/20 11:00 Gram Stain - Preliminary Paracentesis Fluid Body Fluid Culture - Preliminary 08/06/20 11:00 Anaerobic Culture - Preliminary Paracentesis Fluid 08/05/20 13:44 Blood Culture - Preliminary Blood No Growth after 24 hours 08/05/20 14:00 Blood Culture - Preliminary Blood No Growth after 24 hours Assessment and Plan Plan: 1 acute right lung pneumonia involving the right upper lobe/right middle lobe area. The patient is immunosuppressed with a combination of Prograf and prednisone. The patient has also underlying chronic immunosuppression with hypogammaglobulinemia receiving IVIG on outpatient basis. He has been maintained on Zithromax/Bactrim as an antibiotic prophylaxis. His last bout of pneumonia was in July 2019 involving the left lung. For now, the patient has a right upper lobe infiltrate and a small right-sided pleural effusion. He is covered with a combination of Zosyn and Levaquin. Is currently on room air oxygen. Bactrim was restarted by the primary care team which is essentially a prophylaxis for PCP 90 the patient has been immunosuppressed. Nevertheless, I will suggest holding the Prograf for now pending further clearing of the pneumonia. 2 acute hypoxic respiratory failure currently on 2 L of oxygen by nasal cannula, currently on room air oxygen 3 history of bilateral lung transplantation for COPD/pulmonary fibrosis performed in 2008, maintained on a combination of Prograf and prednisone 4 abdominal distention with ascites in addition to some nausea and emesis. CAT scan of the abdomen is indicating the possibility of liver cirrhosis with secondary spleenmegaly and hepatomegaly , post large volume paracentesis with evacuation of 5.6 L of 5 chronic stage III kidney disease, stable creatinine ascitic fluid, creatinine is stable for now 6 diabetes mellitus type 2, maintained on Levemir insulin 50 units every morning along with sliding scale coverage 7 chronic back pain 8 osteoarthritis 9 BPH, Post TURP 10 HYPOGAMMAGLOBULINEMIA RECEIVING IVIG ON OUTPATIENT BASIS 11 chronic anxiety/depression 12 chronic immunosuppression utilizing a combination of Prograf and prednisone 13 osteoporosis on Fosamax Plan Blood cultures and ascitic fluid cultures are all negative for now. Chest x-ray is improving. Currently the patient on room air oxygen. Put the patient on a combination of Levaquin and Zosyn May discontinue the stress dose hydrocortisone by tomorrow Check hepatitis profile is neg Large volume paracenteses was done and the patient will be given IV albumin as a replacement at a dose of 25 mg, awaiting the abdominal fluid albumin level and final cytology Hold Prograf for now IV fluids to KVO Chest x-ray in the morning is showing improvement in the right lung infiltrate and the patient is currently on room air oxygen Monitor renal function Monitor blood sugar and resume the patient's Levemir insulin in addition to a sliding scale coverage Resume home medication We'll continue to follow
--- NOTE | 2020-08-07 15:53 | P.PN ---
Subjective Progress Note Date: 08/07/20 Principal diagnosis: New-onset ascites The patient was seen and examined sitting up in bed. He is status post paracentesis yesterday 5.6 L of fluid removal. He states he is feeling much better today. Denies any abdominal pain, nausea, or vomiting. No acute changes through the night. Afebrile. Objective - Vital Signs Vital signs: Vital Signs Temp 98.6 F 08/07/20 07:23 Pulse 65 08/07/20 07:23 Resp 20 08/07/20 07:23 BP 147/77 08/07/20 07:23 Pulse Ox 97 08/07/20 07:23 Intake & Output 08/06/20 08/07/20 08/07/20 18:59 06:59 18:59 Output Total 575 Balance -575 Output: Urine 575 Other: Voiding Method Toilet # Voids 3 - Exam General appearance: The patient is alert, oriented, in no acute distress. HET: Head is normocephalic and atraumatic. Conjunctiva pink. Sclera anicteric. Neck: Supple without lymphadenopathy. Abdomen: Soft, round, nontender, mildly distended with bowel sounds. No guarding or rigidity. Extremities: Normal skin color and turgor. No pedal edema Skin: No rahses, no jaundice Neurological: No focal deficits. Alert and oriented 3. - Labs CBC & Chem 7: 08/06/20 06:42 08/06/20 06:42 Labs: Abnormal Lab Results - Last 24 Hours (Table) 08/05/20 08/06/20 08/06/20 Range/Units 14:04 06:42 11:43 POC Glucose (mg/dL) 201 H (75-99) mg/dL Procalcitonin 0.35 H (0.02-0.09) ng/mL IgA 366.0 H (60.0-350.0) mg/dL IgM <16.9 L (40.0-280.0) mg/dL 08/06/20 08/06/20 08/07/20 Range/Units 16:50 20:29 06:51 POC Glucose (mg/dL) 311 H 315 H 144 H (75-99) mg/dL Procalcitonin (0.02-0.09) ng/mL IgA (60.0-350.0) mg/dL IgM (40.0-280.0) mg/dL Microbiology - Last 24 Hours (Table) 08/06/20 11:00 Gram Stain - Preliminary Paracentesis Fluid Body Fluid Culture - Preliminary 08/06/20 11:00 Anaerobic Culture - Preliminary Paracentesis Fluid 08/05/20 13:44 Blood Culture - Preliminary Blood No Growth after 24 hours 08/05/20 14:00 Blood Culture - Preliminary Blood No Growth after 24 hours Assessment and Plan (1) Ascites Narrative/Plan: A 69-year-old male with multiple medical comorbidities including prior bilateral lung transplant who presented with increasing abdominal distention found to have moderate ascites and status post paracentesis of 5.6 L of ascitic fluid removed. Fluid studies are adequate for complete evaluation with albumin Being performed, however suspicion is for underlying cirrhosis with computed tomography scan of abdomen showing moderate ascites with sclerotic appearing liver and hepatosplenomegaly as well as thrombocytopenia noted and laboratory evaluation. Patient has no prior history of ascites, underlying liver disease, reports of decompensated liver disease. Unclear etiology the possibility of underlying etiology being the patient's prior double lung transplant however this would be secondary to alpha-1 antitrypsin deficiency which may also be the etiology of cirrhosis, differential also includes medication effect, Coyle cirrhosis or other etiology Current Visit: Yes Status: Acute Code(s): R18.8 - OTHER ASCITES SNOMED Code(s): 936952190 (2) Lung transplant recipient Current Visit: No Status: Acute Code(s): Z94.2 - LUNG TRANSPLANT STATUS SNOMED Code(s): 823354714 Plan: 1. Supportive care 2. Fluid albumin ordered to be run off prior paracentesis 3. Full liver serology ordered 4. Sodium diet 5. Repeat CBC BMP and LFTs 6. Consideration of diuretics, will consult nephrology for chronic kidney disease 7. Recommend outpatient referral to [facility] hepatology after discharge For this consultation we will continue to follow Dr. Carranza I agree with the dictator's note, documented as a scribe by Arcelia Delarosa.
[2020-08-07 16:31] LABS: Glucose,Whole Blood 157 mg/dL (75-99)
[2020-08-07 20:24] LABS: Glucose,Whole Blood 268 mg/dL (75-99)
[2020-08-07] MEDS: INSULIN DETEMIR (LEVEMIR) 100 UNIT/ML SYR SQ SCH (20:53)
--- NOTE | 2020-08-07 22:45 | PN ---
PROGRESS NOTE DATE OF SERVICE: 08/07/2020. REASON FOR FOLLOW UP: Pneumonia. INTERVAL HISTORY: The patient is currently afebrile. The patient is breathing more comfortably. The patient denies having any chest pain. Occasional cough. No sputum. No abdominal pain or diarrhea. PHYSICAL EXAMINATION: Blood pressure 140/77 with pulse of 65, temperature is 98, he is 99% on room air. General description is an elderly male lying in bed in no distress. Respiratory system: Unlabored breathing with decreased intensity in breath sounds. No wheeze. Heart S1, S2. Regular rate and rhythm. ABDOMEN: Soft, no tenderness. LABS: No new labs have been obtained today. Culture so far pending. DIAGNOSTIC IMPRESSION AND PLAN: Patient admitted to hospital with nausea, vomiting, abdominal distention. No evidence of ascites and pneumonia. The patient is status post paracentesis. Antibiotic therapy culture pending. Covered with Zosyn to continue while waiting for the culture to finalize. MMODL / IJN: [id number] /
[2020-08-08 06:58] LABS: Glucose,Whole Blood 109 mg/dL (75-99)
[2020-08-08] MEDS: INSULIN ASPART (NovoLOG) 100 UNIT/ML VIAL SQ SCH ×2 (08:16→12:14)
[2020-08-08 08:19] VITALS: RESP 16; TEMP 97.6
[2020-08-08] MEDS: PIPERACILLIN-TAZOBACTAM 3.375 GM in SODIUM CHLORIDE 0.9% 100 ML IVPB SCH ×2 (08:21→14:59)
[2020-08-08] MEDS: SODIUM CHLORIDE 0.9% 1,000 ML IV SCH (08:21)
[2020-08-08] MEDS: HYDROCORTISONE SUCCINATE 100 MG/2 ML VIAL IV SCH ×2 (08:21→15:05)
[2020-08-08] MEDS: HEPARIN SODIUM,PORCINE 5,000 UNIT/ML 1 ML VIAL SQ SCH (08:21)
[2020-08-08] MEDS: TAMSULOSIN 0.4 MG CAP.ER.24H PO SCH (08:22)
[2020-08-08] MEDS: HYDROcodone/APAP 7.5-325MG 1 EACH TAB PO PRN ×2 (08:22→15:25)
[2020-08-08] MEDS: METOCLOPRAMIDE 10 MG TAB PO SCH (08:22)
[2020-08-08] MEDS: SERTRALINE 50 MG TAB PO SCH (08:22)
[2020-08-08] MEDS: SODIUM BICARBONATE TAB 650 MG TAB PO SCH (08:22)
[2020-08-08] MEDS: POTASSIUM CITRATE 10 MEQ TABLET.ER PO SCH ×2 (08:22→15:19)
[2020-08-08] MEDS: METOPROLOL SUCCINATE (ER) 100 MG TAB.ER.24H PO SCH (08:22)
[2020-08-08] MEDS: LISINOPRIL-HCTZ 10-12.5 MG 1 EACH TAB PO SCH (08:22)
[2020-08-08] MEDS: TACROLIMUS 0.5 MG CAP PO SCH (08:22)
[2020-08-08] MEDS: allopurinoL 100 MG TAB PO SCH (08:23)
[2020-08-08] MEDS: FERROUS SULFATE 325 MG TAB PO SCH (08:23)
[2020-08-08] MEDS: MULTIVITAMINS, THERA 1 EACH TAB PO SCH (08:23)
[2020-08-08] MEDS: amLODIPine 10 MG TAB PO SCH (08:23)
[2020-08-08] MEDS: ATORVASTATIN 10 MG TAB PO SCH (08:23)
[2020-08-08] MEDS ORDERED: PANTOPRAZOLE 40 MG TABLET PO SCH (09:00)
--- NOTE | 2020-08-08 09:36 | P.DS ---
Providers Date of admission: 08/05/20 13:27 Expected date of discharge: 08/08/20 Attending physician: Lilian Whyte Consults: 08/05/20 13:27 Consult Physician Routine Consulting Provider: Tonya Monzon Consult Reason/Comments: pneumonia Do you want consulting provider notified?: Yes Consult Physician Routine Consulting Provider: Ramos Villa Consult Reason/Comments: Immunodeficiency, pneumonia Do you want consulting provider notified?: Yes Consult Physician Routine Consulting Provider: James Carranza Consult Reason/Comments: New-onset ascites, evaluate for GI hemorrhage Do you want consulting provider notified?: Yes 08/07/20 13:04 Consult Physician Routine Consulting Provider: Carmen Vargas Consult Reason/Comments: CKD Do you want consulting provider notified?: Yes Primary care physician: Louie Alaniz [facility] Course: HISTORY OF PRESENT ILLNESS This is a 68-year-old male patient of Dr. Louie Alaniz with past me dical history of chronic immunosuppresive drugs for bilateral lung transplant in 2008 at [facility] with underlying COPD, pulmonary fibrosis, hypogammaglobulinemia on IVIG replacement mponthly regimen with iv ig, chronic kidney disease stage III, diabetes mellitus type 2, osteoarthritis of spine with degenerative disc disease, gastroesophageal reflux disease, hypertension. he was last hosptialized 07/2019 for [facility] and was seen by dr monzon at that time currently Patient gives history of increasing shortness of 1 month duration with abdominal distention and abdominal discomfort, he got wrose with increasing emesis,anorexia weight gain. he has hemoptysis from increasing cough. In the emergency department wbc was at 6.2 with a hemoglobin of 12.4 and a platelet count of 100BUN is 37 with a creatinine of 1.5 and a sodium level of 134 with a potassium level of 3.9. His UA was negative. Troponin was negative.. D-dimer was at 1.45 with a normal inr. Amylase and lipase were within normal limits. LFT are within normal limits including lipase creat at 1.59. UA was negative Covid 19 testing was negative. CAT scan of the abdomen showed moderate to large amount of ascites throughout the abdomen and pelvis. This was consistent with chronic liver disease as the patient also had some hepatosplenomegaly. The liver was suggestive of underlying cirrhotic liver disease. There is evidence of cholelithiasis.. CXR showsThe lung bases some blunting costophrenic angle. There are small better pleural effusion. Patient was admitted with consult to dr Monzon pulmonary and Dr Demetrice ferrer for ascites patient underwent abdominal paracenthesis today 5.6 L asciteic fluid drained out by IR. 08/07: Patient states that he is feeling good today. He denies any nausea or vomiting. Abdomen is softer today. He denies any shortness of breath. We'll add an incentive spirometry. Patient has been seen by Dr. Villa for possible aspiration pneumonia. She is currently on Zosyn. Repeat chest x-ray reveals correlate for pneumonia versus edema. Less confluent density at the right upper lobe as compared to prior exam suggests improvement in aeration. Patient has also been seen by GI for suspected underlying cirrhosis possibly related to alpha antitrypsin deficiency which is underlying cause for the double lung transplant. Patient has been afebrile, heart rate 65, blood pressure 147/77, pulse ox 97% on room air. Blood sugars are elevated anywhere from 144-315. Legionella is negative. 08/08: ASSESSMENT AND PLAN 1. Acute and worsening shortness of breath releated to increasing ascites and small pleural effusion and right probable gram-negative pneumonia 2. History of bilateral lung transplant in 2008 at [facility]. 3. Right pneumonia with pneumonic effusion sepsis present prior to admission 4. Chronic immunosuppressive state on on chronic prednisone as well as transplant rejection medications 5. Acute hypoxemic respiratory failure secondary to pneumonia underlying pulmonary fibrosis present prior to admission 6. Hepatosplenomegaly with ascites 7. Hypertension. 8 Hypogammaglobulinemia on IVIG replacement therapy as an outpatient. IgG level normal currently. on [place] levaquin iv zosyn 9 Diabetes mellitus type 2, insulin requiring. 10 Chronic kidney disease stage III. Continue sodium bicarb 1300 mg twice daily, calcium carbonate 500 mg Wednesday and Wednesday. 11 Benign prostatic hypertrophy. Continue Flomax 0.4 mg daily. 12 Gastroesophageal reflux disease and GI prophylaxis. Protonix. 13 Recurrent depression. Continue Zoloft 50 mg daily. 14 DVT prophylaxis. Heparin subcu. DISCHARGE PLAN Home with significant other. Impression and plan of care have been directed as dictated by the signing physician. Tiera Elder nurse practitioner acting as scribe for signing physician. Plan - Discharge Summary Discharge Rx Participant: Yes New Discharge Prescriptions: New Levofloxacin [Levaquin] 750 mg PO Q48H #3 tab Spironolactone [Aldactone] 25 mg PO DAILY #30 tablet Furosemide [Lasix] 40 mg PO DAILY #30 tablet Continue Metoprolol Succinate (ER) [Toprol XL] 100 mg PO QAM Sulfamethox-Tmp 800-160Mg [Bactrim DS 800-160 mg] 1 tab PO MOWEFR Tacrolimus [Prograf] 2 mg PO BID Fludrocortisone [Florinef] 0.1 mg PO QAM Ergocalciferol (Vitamin D2) [Drisdol] 50,000 units PO Q15D Alendronate Sodium [Fosamax] 70 mg PO WE Insulin Detemir (Levemir) [Levemir] 40 unit SQ HS Azithromycin [Zithromax] 250 mg PO MOWEFR Multivitamins, Thera [Multivitamin (formulary)] 1 tab PO DAILY Ferrous Sulfate [Iron (65 MG Elemental)] 325 mg PO DAILY Allopurinol [Zyloprim] 100 mg PO DAILY amLODIPine [Norvasc] 10 mg PO DAILY Metoclopramide [Reglan] 10 mg PO QAM Sertraline [Zoloft] 50 mg PO DAILY Omeprazole [PriLOSEC] 40 mg PO DAILY Lisinopril-Hctz 10-12.5 mg [Zestoretic 10-12.5] 1 tab PO DAILY Tacrolimus [Prograf] 0.5 mg PO BID Tamsulosin HCl [Flomax] 0.4 mg PO DAILY predniSONE 5 mg PO DAILY #0 Potassium Citrate [Urocit-K] 10 meq PO TID Atorvastatin [Lipitor] 10 mg PO DAILY HYDROcodone/APAP 7.5-325MG [[place] 7.5-325] 1 tab PO TID PRN PRN Reason: Pain Sodium Bicarbonate 650 mg PO BID Discharge Medication List Alendronate Sodium [Fosamax] 70 mg PO WE 11/06/13 [History] Ergocalciferol (Vitamin D2) [Drisdol] 50,000 units PO Q15D 11/06/13 [History] Fludrocortisone [Florinef] 0.1 mg PO QAM 11/06/13 [History] Metoprolol Succinate (ER) [Toprol XL] 100 mg PO QAM 11/06/13 [History] Sulfamethox-Tmp 800-160Mg [Bactrim DS 800-160 mg] 1 tab PO MOWEFR 11/06/13 [History] Tacrolimus [Prograf] 2 mg PO BID 11/06/13 [History] Insulin Detemir (Levemir) [Levemir] 40 unit SQ HS 01/02/14 [History] Azithromycin [Zithromax] 250 mg PO MOWEFR 11/05/15 [History] Multivitamins, Thera [Multivitamin (formulary)] 1 tab PO DAILY 07/23/16 [History] Ferrous Sulfate [Iron (65 MG Elemental)] 325 mg PO DAILY 09/29/16 [History] Allopurinol [Zyloprim] 100 mg PO DAILY 05/06/17 [History] Metoclopramide [Reglan] 10 mg PO QAM 05/06/17 [History] amLODIPine [Norvasc] 10 mg PO DAILY 05/06/17 [History] Omeprazole [PriLOSEC] 40 mg PO DAILY 03/02/18 [History] Sertraline [Zoloft] 50 mg PO DAILY 03/02/18 [History] Lisinopril-Hctz 10-12.5 mg [Zestoretic 10-12.5] 1 tab PO DAILY 07/11/19 [History] Tacrolimus [Prograf] 0.5 mg PO BID 08/16/19 [History] Tamsulosin HCl [Flomax] 0.4 mg PO DAILY 08/16/19 [History] predniSONE 5 mg PO DAILY #0 08/21/19 [Rx] Atorvastatin [Lipitor] 10 mg PO DAILY 05/30/20 [History] Potassium Citrate [Urocit-K] 10 meq PO TID 05/30/20 [History] HYDROcodone/APAP 7.5-325MG [[place] 7.5-325] 1 tab PO TID PRN 08/05/20 [History] Sodium Bicarbonate 650 mg PO BID 08/05/20 [History] Furosemide [Lasix] 40 mg PO DAILY #30 tablet 08/08/20 [Rx] Levofloxacin [Levaquin] 750 mg PO Q48H #3 tab 08/08/20 [Rx] Spironolactone [Aldactone] 25 mg PO DAILY #30 tablet 08/08/20 [Rx] Follow up Appointment(s)/Referral(s): Louie Alaniz MD [Primary Care Provider] - 1 Week Tonya Monzon MD [STAFF PHYSICIAN] - 2 Weeks James Carranza MD [STAFF PHYSICIAN] - 2 Weeks Discharge Disposition: HOME SELF-CARE
[2020-08-08 09:53] LABS: African American GFR (CKD) 54 (>60 ml/min/1.73 sqM); Anion Gap 11 mmol/L; Blood Urea Nitrogen 38 mg/dL (9-20); Calcium 7.7 mg/dL (8.4-10.2); Carbon Dioxide 24 mmol/L (22-30); Chloride 103 mmol/L (98-107); Glucose 113 mg/dL (74-99); Non-African American GFR(CKD) 46 (>60 ml/min/1.73 sqM); Potassium 3.5 mmol/L (3.5-5.1); Sodium 138 mmol/L (137-145)
[2020-08-08 10:49] LABS: Alpha Fetoprotein, Tumor Mkr <2.5 ng/mL (0.0-7.9)
[2020-08-08 11:22] LABS: % Iron Saturation 21.67 (15.00-50.00)
[2020-08-08 11:25] LABS: Albumin, Fluid Source Paracentesis Fluid
[2020-08-08 11:37] LABS: Ceruloplasmin 17.6 mg/dL (20.0-60.0)
[2020-08-08 11:45] LABS: Glucose,Whole Blood 133 mg/dL (75-99)
--- NOTE | 2020-08-08 14:38 | P.PN ---
Subjective Progress Note Date: 08/08/20 Principal diagnosis: New-onset ascites Seen and examined sitting up the bedside. States he is doing well overall. States he feels much better. He denies any acute changes through the night. No fevers or chills. He is status post paracentesis. Fluid cytology still pending. Objective - Vital Signs Vital signs: Vital Signs Temp 97.6 F 08/08/20 08:00 Pulse 57 L 08/08/20 08:00 Resp 16 08/08/20 08:00 BP 167/78 08/08/20 08:00 Pulse Ox 100 08/08/20 08:00 Intake & Output 08/07/20 08/08/20 08/08/20 18:59 06:59 18:59 Intake Total 260 236 Balance 260 236 Weight 69.4 kg Intake: IV 260 Piperacillin-Tazobactam 3 100 .375 gm In Sodium Chloride 0.9% 100 ml @ 25 mls/hr IVPB Q12HR BARB Rx #:[id number] Sodium Chloride 0.9% 1, 160 000 ml @ 20 mls/hr IV . Q24H BARB Rx#:[id number] Oral 236 Other: Voiding Method Toilet # Voids 3 - Exam General appearance: The patient is alert, oriented, in no acute distress. HET: Head is normocephalic and atraumatic. Conjunctiva pink. Sclera anicteric. Neck: Supple without lymphadenopathy. Abdomen: Soft, round, nontender, mildly distended with bowel sounds. No guarding or rigidity. Extremities: Normal skin color and turgor. No pedal edema Skin: No rahses, no jaundice Neurological: No focal deficits. Alert and oriented 3. - Labs CBC & Chem 7: 08/06/20 06:42 08/08/20 07:05 Labs: Abnormal Lab Results - Last 24 Hours (Table) 08/07/20 08/07/20 08/07/20 Range/Units 11:15 16:29 20:22 BUN (9-20) mg/dL Creatinine (0.66-1.25) mg/dL Glucose (74-99) mg/dL POC Glucose (mg/dL) 243 H 157 H 268 H (75-99) mg/dL Calcium (8.4-10.2) mg/dL 08/08/20 08/08/20 Range/Units 06:57 07:05 BUN 38 H (9-20) mg/dL Creatinine 1.50 H (0.66-1.25) mg/dL Glucose 113 H (74-99) mg/dL POC Glucose (mg/dL) 109 H (75-99) mg/dL Calcium 7.7 L (8.4-10.2) mg/dL Microbiology - Last 24 Hours (Table) 08/05/20 14:00 Blood Culture - Preliminary Blood No Growth after 48 hours 08/05/20 13:44 Blood Culture - Preliminary Blood No Growth after 48 hours 08/06/20 11:00 Gram Stain - Preliminary Paracentesis Fluid Body Fluid Culture - Preliminary Assessment and Plan (1) Ascites Narrative/Plan: A 69-year-old male with multiple medical comorbidities including prior bilateral lung transplant who presented with increasing abdominal distention found to have moderate ascites and status post paracentesis of 5.6 L of ascitic fluid removed. Fluid studies are adequate for complete evaluation with albumin Being performed, however suspicion is for underlying cirrhosis with computed tomography scan of abdomen showing moderate ascites with sclerotic appearing liver and hepatosplenomegaly as well as thrombocytopenia noted and laboratory evaluation. Patient has no prior history of ascites, underlying liver disease, reports of decompensated liver disease. Unclear etiology the possibility of underlying etiology being the patient's prior double lung transplant however this would be secondary to alpha-1 antitrypsin deficiency which may also be the etiology of cirrhosis, differential also includes medication effect, Coyle cirrhosis or other etiology Current Visit: Yes Status: Acute Code(s): R18.8 - OTHER ASCITES SNOMED Code(s): 579278311 (2) Lung transplant recipient Current Visit: No Status: Acute Code(s): Z94.2 - LUNG TRANSPLANT STATUS SNOMED Code(s): 652972316 Plan: 1. Supportive care 2. Fluid albumin ordered to be run off prior paracentesis 3. Full liver serology ordered, pedning results 4. Low Sodium diet 5. Repeat CBC BMP and LFTs 6. Nephrology consulted for advisement on diuretic therapy, patient with history of chronic kidney disease 7. Recommend outpatient referral to [facility] hepatology after discharge Thank you for this consultation we will continue to follow Dr. Carranza I agree with the dictator's note, documented as a scribe by Arcelia Delarosa.
[2020-08-08 14:48] VITALS: BP 115/64; PULSE 69
--- NOTE | 2020-08-08 16:16 | P.PN ---
Subjective Progress Note Date: 08/08/20 On today's evaluation of 08/08/2020, the patient is being seen for a follow-up in place. No shortness of breath or chest pain. He remains on a combination of Zosyn and Levaquin. No abdominal distention. The ascitic fluid albumin came back low and the fluid in the abdomen was consistent with liver failure. Meanwhile, the patient underwent an evaluation for liver disease including alpha-fetoprotein protein that came back negative, consider plasma level that came back at 17.6 which is low, alpha-1 antitrypsin level was at 148. The patient otherwise has a creatinine of 1.5 which is essentially stable consistent with chronic kidney disease. No significant respiratory distress. He is currently on room air oxygen. No abdominal distention. No fever. No chills. Vitals are all stable for now. Objective - Vital Signs Vital signs: Vital Signs Temp 97.6 F 08/08/20 14:00 Pulse 69 08/08/20 14:00 Resp 16 08/08/20 14:00 BP 115/64 08/08/20 14:00 Pulse Ox 96 08/08/20 14:00 Intake & Output 08/07/20 08/08/20 08/08/20 18:59 06:59 18:59 Intake Total 260 832 Balance 260 832 Weight 69.4 kg Intake: IV 260 360 Piperacillin-Tazobactam 3 100 200 .375 gm In Sodium Chloride 0.9% 100 ml @ 25 mls/hr IVPB Q12HR BARB Rx #:[id number] Sodium Chloride 0.9% 1, 160 160 000 ml @ 20 mls/hr IV . Q24H BARB Rx#:[id number] Oral 472 Other: Voiding Method Toilet # Voids 3 - Exam Gen. appearance the patient is a mild degree of respiratory distress the patient is currently on room air oxygen Head exam was generally normal. There was no scleral icterus or corneal arcus. Mucous membranes were moist. Neck was supple and without jugular venous distension, thyromegaly, or carotid bruits. Carotids were easily palpable bilaterally. There was no adenopathy. Examination of the lungs shows a clamshell incision over the anterior chest related to transplantation. The patient has crackles in right midlung area anteriorly and posteriorly Cardiac exam revealed the PMI to be normally situated and sized. The rhythm was regular and no extrasystoles were noted during several minutes of auscultation. The first and second heart sounds were normal and physiologic splitting of the second heart sound was noted. There were no murmurs, rubs, clicks, or gallops. Abdominal exam revealed normal bowel sounds. The abdomen was soft, non-tender, and without masses, organomegaly, or appreciable enlargement of the abdominal aorta. The patient has an abdominal wall hernia on examination , the patient also has some fluid wave and shifting dullness. No direct tenderness, no rebound tenderness or guarding, and abdomen is less distended compared to yesterday following his large volume paracentesis. Examination of the extremities revealed easily palpable radial, femoral and pedal pulses. There was no cyanosis, clubbing or edema. Examination of the skin revealed no evidence of significant rashes, suspicious appearing nevi or other concerning lesions. - Labs CBC & Chem 7: 08/06/20 06:42 08/08/20 07:05 Labs: Abnormal Lab Results - Last 24 Hours (Table) 08/07/20 08/07/20 08/08/20 Range/Units 16:29 20:22 06:57 BUN (9-20) mg/dL Creatinine (0.66-1.25) mg/dL Glucose (74-99) mg/dL POC Glucose (mg/dL) 157 H 268 H 109 H (75-99) mg/dL Calcium (8.4-10.2) mg/dL Iron (65-175) ug/dL Ceruloplasmin (20.0-60.0) mg/dL 08/08/20 08/08/20 08/08/20 Range/Units 07:05 07:05 07:05 BUN 38 H (9-20) mg/dL Creatinine 1.50 H (0.66-1.25) mg/dL Glucose 113 H (74-99) mg/dL POC Glucose (mg/dL) (75-99) mg/dL Calcium 7.7 L (8.4-10.2) mg/dL Iron 52 L (65-175) ug/dL Ceruloplasmin 17.6 L (20.0-60.0) mg/dL 08/08/20 Range/Units 11:43 BUN (9-20) mg/dL Creatinine (0.66-1.25) mg/dL Glucose (74-99) mg/dL POC Glucose (mg/dL) 133 H (75-99) mg/dL Calcium (8.4-10.2) mg/dL Iron (65-175) ug/dL Ceruloplasmin (20.0-60.0) mg/dL Microbiology - Last 24 Hours (Table) 08/05/20 14:00 Blood Culture - Preliminary Blood No Growth after 72 hours 08/05/20 13:44 Blood Culture - Preliminary Blood No Growth after 72 hours 08/06/20 11:00 Gram Stain - Preliminary Paracentesis Fluid Body Fluid Culture - Preliminary 08/06/20 11:00 Anaerobic Culture - Preliminary Paracentesis Fluid Assessment and Plan Plan: 1 acute right lung pneumonia involving the right upper lobe/right middle lobe area. The patient is immunosuppressed with a combination of Prograf and prednisone. The patient has also underlying chronic immunosuppression with hypogammaglobulinemia receiving IVIG on outpatient basis. He has been maintained on Zithromax/Bactrim as an antibiotic prophylaxis. His last bout of pneumonia was in July 2019 involving the left lung. For now, the patient has a right upper lobe infiltrate and a small right-sided pleural effusion. He is covered with a combination of Zosyn and Levaquin. Is currently on room air oxygen. Bactrim was restarted by the primary care team which is essentially a prophylaxis for PCP 90 the patient has been immunosuppressed. 2 acute hypoxic respiratory failure currently on 2 L of oxygen by nasal cannula, currently on room air oxygen 3 history of bilateral lung transplantation for COPD/pulmonary fibrosis performed in 2008, maintained on a combination of Prograf and prednisone 4 abdominal distention with ascites in addition to some nausea and emesis. CAT scan of the abdomen is indicating the possibility of liver cirrhosis with secondary spleenmegaly and hepatomegaly , post large volume paracentesis with evacuation of 5.6 L of 5 chronic stage III kidney disease, stable creatinine ascitic fluid, creatinine is stable for now 6 diabetes mellitus type 2, maintained on Levemir insulin 50 units every morning along with sliding scale coverage 7 chronic back pain 8 osteoarthritis 9 BPH, Post TURP 10 HYPOGAMMAGLOBULINEMIA RECEIVING IVIG ON OUTPATIENT BASIS 11 chronic anxiety/depression 12 chronic immunosuppression utilizing a combination of Prograf and prednisone 13 osteoporosis on Fosamax Plan Complete a course of Levaquin 750 mg on outpatient basis Cultures of been all negative Chest x-ray is improving. Currently the patient on room air oxygen. Check hepatitis profile is neg and the various markers for chronic liver disease were also negative Large volume paracenteses was done IV fluids to KVO Renal function remains stable Continue Lasix 40 mg by mouth daily and Aldactone was added to his regimen Watch for hyperkalemia investigation with Aldactone Discharge home today to be followed up on outpatient basis We'll continue to follow in the office
--- NOTE | 2020-08-08 16:20 | CONS ---
CONSULTATION REASON FOR CONSULT: Renal failure. HISTORY OF PRESENT ILLNESS: Patient is a 69-year-old male with history of chronic liver disease. He has a history of bilateral lung transplant, history of CKD stage 3 previously with previous creatinine around 1.5-1.4 mg/dL at baseline secondary to nephrosclerosis. No evidence of proteinuria on UA. The patient was admitted to the hospital with complaints of increased abdominal distention and discomfort. He has been losing weight and had some blood in his sputum as well. CT of the abdomen shows significant ascites and serum creatinine has been staying at about 1.5-1.6 mg/dL. The patient is maintained on MERARY inhibitors. He is not on any IV fluids currently. He is maintained on Bactrim as a maintenance medication post lung transplant along with his immunosuppressive medications. PAST MEDICAL HISTORY: Significant for COPD, type 2 diabetes, osteoarthritis, pneumonia, pulmonary fibrosis, status post bilateral lung transplant 2008, diabetes, CKD stage 3, chronic hypogammaglobulinemia, receiving IVIG treatments as outpatient. SURGICAL HISTORY: Cardiac catheterization, hernia repair, cataract surgery, colonoscopy, lung transplant, hernia repair, inguinal and umbilical. SOCIAL HISTORY: Negative for smoking currently. The patient is a former smoker. No history of drug abuse or alcohol abuse. MEDICATIONS: Medications prior to admission included Fosamax, vitamin D2, Florinef, Toprol, Bactrim, Prograf, Zithromax, insulin, Zyloprim, Reglan, Norvasc, Prilosec, iron, Flomax, Zoloft, Lipitor, Urocit-K, [place], sodium bicarb. ALLERGIES: Allergies include CLARITHROMYCIN and MOTRIN. PHYSICAL EXAMINATION: Patient is currently comfortable, awake. He is not in any acute distress. Blood pressure was 152/75, heart rate 61 per minute. He is afebrile. EXAMINATION OF THE HEART: S1, S2. EXAMINATION OF THE LUNGS: Bilateral breath sounds are heard. Abdomen is soft, distended with ascites noted. Examination of lower extremities shows edema 1+ bilaterally. STORE C[employer]ODIAN exam is grossly intact. LABS: Labs show sodium 138, potassium 3.5, BUN 38, creatinine 1.5. Iron saturation 21.6%. UA is fairly benign with no evidence of proteinuria or hematuria. Coronavirus PCR is negative. ASSESSMENT: 1. Chronic kidney disease stage 3 secondary to chronic use of calcineurin inhibitors. The patient is maintained on Prograf. His UA is quite benign. Renal function seems to be at baseline at this point. 2. Ascites with evidence of chronic liver disease, status post paracentesis. 3. History of bilateral lung transplant for chronic obstructive pulmonary disease and pulmonary fibrosis in 2008, maintained on Prograf and prednisone. 4. Chronic hypogammaglobulinemia, receiving IVIG as outpatient. 5. History of chronic anxiety and depression. 6. Type 2 diabetes, maintained on insulin. 7. Acute right lung pneumonia as well as right upper lobe and middle lobe pneumonia, being followed by Pulmonary, maintained on antibiotics. PLAN: Continue off of IV fluids. Continue with potassium supplementation. Continue with the sodium bicarb as well. Prograf being held due to ongoing pneumonia. The patient is maintained on steroids. Thank you for this consultation. Will continue to follow the patient with you during his hospitalization. MMODL / IJN: [id number] /
--- NOTE | 2020-08-08 16:31 | PN ---
PROGRESS NOTE DATE OF SERVICE: 08/08/2020 REASON FOR FOLLOWUP: Pneumonia. INTERVAL HISTORY: The patient is currently afebrile. The patient is breathing comfortably, currently on room air. The patient denies having any chest pain or shortness of breath or cough. No abdominal pain. No diarrhea. He wants to go home. PHYSICAL EXAMINATION: Blood pressure 115/64 with a pulse of 69, temperature 97.6. He is 96% on room air. General description is an elderly male in the bed in no distress. RESPIRATORY SYSTEM: Unlabored breathing with decreased intensity of breath sounds. No wheeze. HEART: S1, S2. Regular rate and rhythm. ABDOMEN: Soft. No tenderness. LABS: Creatinine is 1.50. pleural culture pending. DIAGNOSTIC IMPRESSION AND PLAN: Patient admitted to hospital with nausea, vomiting and evidence of pneumonia on the x- ray study. The patient clinically responded to the antibiotic in the form of Zosyn, and prescription for Levaquin has been sent to finish his therapy, and close outpatient followup. MMGELYL / IJN: [id number] /
[2020-08-09 11:39] LABS: Liver/Kidney Microsome Antibod 2.9 UNITS (<=20)
[2020-08-09 12:46] LABS: Protein, Total 5.6 g/dL (6.2-8.2)
[2020-08-09 14:15] LABS: Gamma Globulin 0.97 g/dL (0.70-1.50)
[2020-08-09] MEDS ORDERED: LEVOFLOXACIN 750 MG TAB PO SCH (15:00)
== END 2020-08-08 16:06 | disposition home or self-care (01) | DRG 871 ==
LOC: EC 11:05 → 4SSUR 13:27
PROVIDERS: ADMIT Family Medicine; ATTEND Family Medicine
PROC: 0W993ZZ Drainage of Right Pleural Cavity, Percutaneous Approach (ICD-10-PCS; principal; 2020-08-06)
PROC: 0W9G3ZX Drainage of Peritoneal Cavity, Percutaneous Approach, Diagnostic (ICD-10-PCS; 2020-08-06)
DX: A41.50 Gram-negative sepsis, unspecified (principal); J15.6 Pneumonia due to other Gram-negative bacteria; J96.01 Acute respiratory failure with hypoxia; D80.1 Nonfamilial hypogammaglobulinemia; F33.9 Major depressive disorder, recurrent, unspecified; J44.0 Chronic obstructive pulmonary disease with (acute) lower respiratory infection; J91.8 Pleural effusion in other conditions classified elsewhere; R18.8 Other ascites; D84.821 Immunodeficiency due to drugs; R04.2 Hemoptysis; Z94.2 Lung transplant status; Z20.822 Contact with and (suspected) exposure to COVID-19; E11.22 Type 2 diabetes mellitus with diabetic chronic kidney disease; F41.9 Anxiety disorder, unspecified; I12.9 Hypertensive chronic kidney disease with stage 1 through stage 4 chronic kidney disease, or unspecified chronic kidney disease; J84.10 Pulmonary fibrosis, unspecified; K72.90 Hepatic failure, unspecified without coma; K80.20 Calculus of gallbladder without cholecystitis without obstruction; N18.30 Chronic kidney disease, stage 3 unspecified; N40.0 Benign prostatic hyperplasia without lower urinary tract symptoms; K74.60 Unspecified cirrhosis of liver; Z79.2 Long term (current) use of antibiotics; Z79.4 Long term (current) use of insulin; Z79.52 Long term (current) use of systemic steroids; Z79.83 Long term (current) use of bisphosphonates; T45.1X5A Adverse effect of antineoplastic and immunosuppressive drugs, initial encounter; T38.0X5A Adverse effect of glucocorticoids and synthetic analogues, initial encounter; E88.01 Alpha-1-antitrypsin deficiency; R63.0 Anorexia; Z68.24 Body mass index [BMI] 24.0-24.9, adult; M47.9 Spondylosis, unspecified; G89.29 Other chronic pain; R16.2 Hepatomegaly with splenomegaly, not elsewhere classified; K21.9 Gastro-esophageal reflux disease without esophagitis; Z87.01 Personal history of pneumonia (recurrent); Z90.79 Acquired absence of other genital organ(s); Z79.899 Other long term (current) drug therapy; Z82.5 Family history of asthma and other chronic lower respiratory diseases; Z87.891 Personal history of nicotine dependence
CPT/HCPCS: 36415; 49083; 71045; 71046; 74176; 78582; 80048; 80053; 80074; 81001; 82042; 82103; 82105; 82150; 82390; 82728; 82784; 82945; 83516; 83540; 83550; 83615; 83690; 84145; 84157; 84165; 84484; 85025; 85027; 85379; 85610; 85730; 86140; 86376; 87040; 87070; 87075; 87205; 87449; 87502; 87635; 88108; 88305; 89050; 93005; 94760; 96365; 96375; 99285

== ENCOUNTER → 2020-08-14 | Outpatient (CLI) | payer MEDICARE, OTHER ==
[2020-08-14 14:17] LABS: Basophils % (A) 0 %; Eosinophils # (A) 0.1 k/uL (0-0.7); Eosinophils % (A) 2 %; HCT 37.4 % (39.0-53.0); HGB 11.5 gm/dL (13.0-17.5); Hypochromasia Slight; Lymphocytes # (A) 0.6 k/uL (1.0-4.8); Lymphocytes % (A) 7 %; MCH 30.8 pg (25.0-35.0); MCHC 30.7 g/dL (31.0-37.0); MCV 100.3 fL (80.0-100.0); Macrocytosis Slight; Mean Platelet Volume 8.1; Monocytes # (A) 0.7 k/uL (0-1.0); Monocytes % (A) 9 %; Neutrophils # (A) 6.6 k/uL (1.3-7.7); Neutrophils % (A) 81 %; RBC 3.73 m/uL (4.30-5.90); RDW 15.6 % (11.5-15.5); WBC 8.2 k/uL (3.8-10.6)
[2020-08-14 14:21] LABS: INR 1.1 (<1.2); Prothrombin Time 11.5 sec (9.0-12.0)
[2020-08-14 14:23] LABS: Platelet Count 83 k/uL (150-450)
[2020-08-14 14:30] LABS: Albumin 3.4 g/dL (3.5-5.0); Calcium 8.7 mg/dL (8.4-10.2); Potassium 5.1 mmol/L (3.5-5.1); Total Bilirubin 0.6 mg/dL (0.2-1.3); Total Protein 6.2 g/dL (6.3-8.2)
== END | disposition home or self-care (01) ==
LOC: LABPAT 12:56
PROVIDERS: ATTEND Internal Medicine
DX: K74.60 Unspecified cirrhosis of liver (principal); N18.30 Chronic kidney disease, stage 3 unspecified
CPT/HCPCS: 80053; 85025; 85610

== ENCOUNTER 2020-08-19 11:41 | Day surgery (SDC) | payer MEDICARE, OTHER ==
[2020-08-19 12:38] VITALS: RESP 16; TEMP 97.5
[2020-08-19 12:58] LABS: Mean Platelet Volume 8.9
[2020-08-19 13:01] LABS: Platelet Count 83 k/uL (150-450)
[2020-08-19 13:02] LABS: INR 1.1 (<1.2); Prothrombin Time 11.9 sec (9.0-12.0)
[2020-08-19] MEDS: ALBUMIN HUMAN 25% 50 ML in EMPTY BAG 1 BAG IVPB SCH ×3 (13:54→14:57)
[2020-08-19 14:41] VITALS: BP 113/63; PULSE 62
--- NOTE | 2020-08-19 16:20 | US ---
EXAMINATION TYPE: US paracentesis abd w/image DATE OF EXAM: 08/19/2020 COMPARISON: NONE HISTORY: Ascites. PROCEDURE: Maximal barrier technique was utilized. The skin overlying a suitable pocket of fluid was localized with ultrasound and the overlying skin was prepped and draped. Ultrasound was utilized with sterile technique. Lidocaine was used for local anesthesia and a skin meri made with a scalpel. Catheter was advanced under direct ultrasound guidance into a suitable pocket of fluid and approximately 5.1 liter s of serous fluid were removed. Catheter was withdrawn and hemostasis achieved. There is no immedia te complication; the patient is discharged in stable condition. IMPRESSION: STATUS POST ULTRASOUND GUIDED PARACENTESIS FOR PALLIATION OF ASCITES. THIS PROCEDURE WA S PERFORMED BY THE UNDERSIGNED. Specimen obtained for laboratory analysis.
[2020-08-19 18:34] LABS: Appearance,BF Hazy; Color,BF Yellow; Nucleated Cells, Body Fluid 36 /uL; RBC, Body Fluid 399 /uL
[2020-08-19 18:43] LABS: Mononuclear WBC,Body Fluid 37 %; Polynuclear WBC,Body Fluid 63 %; Total Cells Counted,Body Fluid 100
[2020-08-20 05:52] LABS: Albumin, Fluid Source Paracentesis Fluid
== END 2020-08-19 15:20 | disposition home or self-care (01) ==
LOC: RADPROMAIN 11:41
PROVIDERS: ATTEND Internal Medicine
DX: R18.8 Other ascites (principal)
CPT/HCPCS: 82042; 89050; 82565; 82947; 85049; 85610; 87070; 87205; 87075; 84157; 36415; 49083; P9047

== ENCOUNTER → 2020-09-02 | Outpatient (CLI) | payer MEDICARE, OTHER ==
[2020-09-02 18:54] LABS: Prothrombin Time 10.9 sec (9.9-11.9)
[2020-09-02 20:02] LABS: Basophils # (A) 0.01 X 10*3/uL (0.00-0.10); Basophils % (A) 0.1 %; Eosinophils # (A) 0.11 X 10*3/uL (0.04-0.35); Eosinophils % (A) 1.6 %; HCT 32.2 % (39.6-50.0); HGB 10.2 g/dL (13.0-17.0); Lymphocytes # (A) 0.42 X 10*3/uL (0.90-5.00); Lymphocytes % (A) 6.2 %; MCH 31.8 pg (27.0-32.0); MCHC 31.7 g/dL (32.0-37.0); MCV 100.3 fL (80.0-97.0); Mean Platelet Volume 12.9 fL (9.5-12.2); Monocytes # (A) 1.03 X 10*3/uL (0.20-1.00); Monocytes % (A) 15.1 %; Neutrophils # (A) 5.19 X 10*3/uL (1.80-7.70); Neutrophils % (A) 76.3 %; Platelet Count 68 X 10*3/uL (140-440); RBC 3.21 X 10*6/uL (4.40-5.60); RDW 14.7 % (11.5-14.5); WBC 6.81 X 10*3/uL (4.50-10.00)
[2020-09-02 20:56] LABS: African American GFR (CKD) 31.9 (60.0-200.0); Albumin 3.5 g/dL (3.80-4.90); Albumin/Globulin Ratio 1.67 (1.60-3.17); Anion Gap 6.4 mmol/L (4.00-12.00); BUN/Creat Ratio 27.39 Ratio (12.00-20.00); Carbon Dioxide 16.6 mmol/L (21.6-31.8); Globulin 2.1 g/dL (1.6-3.3); Non-African American GFR(CKD) 27.5 (60.0-200.0); Potassium 5.9 mmol/L (3.5-5.5); Total Bilirubin 0.3 mg/dL (0.3-1.2); Total Protein 5.6 g/dL (6.2-8.2)
== END | disposition home or self-care (01) ==
LOC: LABWHC1 12:49
PROVIDERS: ATTEND Internal Medicine
DX: K74.60 Unspecified cirrhosis of liver (principal); N18.30 Chronic kidney disease, stage 3 unspecified
CPT/HCPCS: 36415; 80053; 85025; 85610

== ENCOUNTER 2020-09-05 15:39 | Inpatient (IN) | payer MEDICARE, OTHER ==
--- NOTE | 2020-09-05 16:33 | ED ---
Recheck HPI - General Chief Complaint: Recheck/Abnormal Lab/Rx Stated Complaint: High Potassium Time Seen by Provider: 09/05/20 16:00 Source: patient, RN notes reviewed Mode of arrival: wheelchair Limitations: no limitations - History of Present Illness Initial Comments: This is a 69-year-old male history of multiple medical issues including COPD and diabetes history of lung transplant recent paracentesis who is in today because he was instructed to come back in because of a high potassium level of 5.6 on the blood drawn yesterday at [facility]. He denies any fevers chills sweats cough shortness of breath or other symptoms at this time. He states his belly is somewhat distended but is not painful he is scheduled for another paracentesis on the of this month. He does state he has some pain at the previous left-sided paracentesis site but notices no localized increased temperature or redness. - Related Data Home Medications Medication Instructions Recorded Confirmed Alendronate Sodium [Fosamax] 70 mg PO WE 11/06/13 09/05/20 Ergocalciferol (Vitamin D2) 50,000 units PO Q15D 11/06/13 09/05/20 [Drisdol] Fludrocortisone [Florinef] 0.1 mg PO DAILY 11/06/13 09/05/20 Metoprolol Succinate (ER) [Toprol 100 mg PO DAILY 11/06/13 09/05/20 XL] Sulfamethox-Tmp 800-160Mg [Bactrim 1 tab PO DIRECTED 11/06/13 09/05/20 DS 800-160 mg] Tacrolimus [Prograf] 2 mg PO BID 11/06/13 09/05/20 Multivitamins, Thera [Multivitamin 1 tab PO DAILY 07/23/16 09/05/20 (formulary)] Ferrous Sulfate [Iron (65 MG 325 mg PO DAILY 09/29/16 09/05/20 Elemental)] Allopurinol [Zyloprim] 100 mg PO DAILY 05/06/17 09/05/20 Metoclopramide [Reglan] 10 mg PO DAILY 05/06/17 09/05/20 amLODIPine [Norvasc] 10 mg PO DAILY 05/06/17 09/05/20 Omeprazole [PriLOSEC] 40 mg PO BID 03/02/18 09/05/20 Sertraline [Zoloft] 50 mg PO DAILY 03/02/18 09/05/20 Tacrolimus [Prograf] 0.5 mg PO BID 08/16/19 09/05/20 Tamsulosin HCl [Flomax] 0.4 mg PO DAILY 08/16/19 09/05/20 Atorvastatin [Lipitor] 10 mg PO DAILY 05/30/20 09/05/20 Sodium Bicarbonate 650 mg PO BID 08/05/20 09/05/20 HYDROcodone/APAP 5-325MG [[place] 1 tab PO TID PRN 08/15/20 09/05/20 5-325] Ciprofloxacin HCl [Cipro] 750 mg PO Q12H 09/04/20 09/05/20 Azithromycin 250 mg PO DIRECTED 09/05/20 09/05/20 Insulin Detemir [Levemir Flextouch] 20 unit SQ DAILY 09/05/20 09/05/20 diphenhydrAMINE [Benadryl] 50 mg PO DAILY PRN 09/05/20 09/05/20 Previous Rx's Medication Instructions Recorded predniSONE 5 mg PO DAILY #0 08/21/19 Allergies Allergy/AdvReac Type Severity Reaction Status Date / Time clarithromycin [From Biaxin] AdvReac instructed Verified 09/05/20 17:21 not to take r/t lung transplant ibuprofen [From Motrin] AdvReac Abdominal Verified 09/05/20 17:21 Pain Review of Systems ROS Statement: Those systems with pertinent positive or pertinent negative responses have been documented in the HPI. ROS Other: All systems not noted in ROS Statement are negative. Past Medical History Past Medical History: COPD, Diabetes Mellitus, GERD/Reflux, Osteoarthritis (OA), Pneumonia, Prostate Disorder, Renal Disease, Respiratory Disorder Additional Past Medical History / Comment(s): recent admission with pneumonia, History of COPD and pulmonary fibrosis. The patient underwent bilateral lung transplantation and 2008. He has diabetes, chronic arthritis with back pain, degenerative disc disease, chronic stage III kidney disease, chronic hypogammaglobulinemia and the patient is receiving IVIG treatment on outpatient basis and the last treatment was in June 2019, left lung pneumonia in July 2019 requiring hospitalization, cirrhosis of the liver History of Any Multi-Drug Resistant Organisms: None Reported Past Surgical History: Heart Catheterization, Hernia Repair Additional Past Surgical History / Comment(s): RT & LT CATARACT REMOVED/COLONOSCOPY/BILATERAL LUNG TRANSPLANT 20082013 HERNIA REPAIR UMBILICAL, LEFT INGUINAL AND FEMEROL. TURP - 2015, paracentesis 08/06/20 Past Anesthesia/Blood Transfusion Reactions: No Reported Reaction Past Psychological History: Anxiety, Depression Smoking Status: Former smoker Past Alcohol Use History: None Reported Past Drug Use History: None Reported - Past Family History Mother Family Medical History: No Reported History Additional Family Medical History / Comment(s): Mother at age 73 from asthma or COPD. Father Additional Family Medical History / Comment(s): Father at age 68 from a sthma. Brother(s) Additional Family Medical History / Comment(s): Patient states he has 6 brothers and 5 sisters and is not sure of their medical history. Some have passed. Patient has one daughter with no major medical problems. General Exam - General Exam Comments Initial Comments: This is a well-developed asthenic appearing male who is awake alert oriented 3 Limitations: no limitations General appearance: alert, in no apparent distress Head exam: Present: atraumatic, normocephalic, normal inspection Eye exam: Present: normal appearance, PERRL, EOMI. Absent: scleral icterus, conjunctival injection, periorbital swelling ENT exam: Present: normal exam, mucous membranes moist Neck exam: Present: normal inspection, full ROM, other (Surgery or bruits). Absent: tenderness, meningismus, lymphadenopathy Respiratory exam: Present: normal lung sounds bilaterally. Absent: respiratory distress, wheezes, rales, rhonchi, stridor Cardiovascular Exam: Present: regular rate, normal rhythm, normal heart sounds. Absent: systolic murmur, diastolic murmur, rubs, gallop, clicks GI/Abdominal exam: Present: soft, distended, normal bowel sounds. Absent: tenderness, guarding, rebound, rigid, bruit, pulsatile mass Extremities exam: Present: normal inspection, full ROM, normal capillary refill. Absent: tenderness, pedal edema, joint swelling, calf tenderness Back exam: Present: normal inspection Neurological exam: Present: alert, oriented X3, CN II-XII intact Psychiatric exam: Present: normal affect, normal mood Skin exam: Present: warm, dry, intact, normal color. Absent: rash Course Vital Signs 09/05/20 15:56 Temperature 98.0 F Pulse Rate 68 Respiratory 18 Rate Blood Pressure 111/57 O2 Sat by Pulse 98 Oximetry Medical Decision Making - Medical Decision Making I did discuss findings the patient family as well as with Dr. Sosa she'll be admitted with consultation by GI as well as vaginal radiology - Lab Data Result diagrams: 09/05/20 16:32 09/05/20 16:26 Lab Results 09/05/20 09/05/20 Range/Units 16:26 16:32 WBC 4.3 (3.8-10.6) k/uL RBC 3.04 L (4.30-5.90) m/uL Hgb 10.1 L (13.0-17.5) gm/dL Hct 30.6 L (39.0-53.0) % MCV 100.8 H (80.0-100.0) fL MCH 33.1 (25.0-35.0) pg MCHC 32.8 (31.0-37.0) g/dL RDW 15.9 H (11.5-15.5) % Plt Count 68 L (150-450) k/uL MPV 8.0 Neutrophils % 84 % Lymphocytes % 6 % Monocytes % 7 % Eosinophils % 1 % Basophils % 0 % Neutrophils # 3.6 (1.3-7.7) k/uL Lymphocytes # 0.3 L (1.0-4.8) k/uL Monocytes # 0.3 (0-1.0) k/uL Eosinophils # 0.0 (0-0.7) k/uL Basophils # 0.0 (0-0.2) k/uL Hypochromasia Slight Macrocytosis Slight Sodium 134 L (137-145) mmol/L Potassium 6.1 H* (3.5-5.1) mmol/L Chloride 111 H (98-107) mmol/L Carbon Dioxide 16 L (22-30) mmol/L Anion Gap 7 mmol/L BUN 53 H (9-20) mg/dL Creatinine 1.65 H (0.66-1.25) mg/dL Est GFR (CKD-EPI)AfAm 48 (>60 ml/min/1.73 sqM) Est GFR (CKD-EPI)NonAf 41 (>60 ml/min/1.73 sqM) Glucose 244 H (74-99) mg/dL Calcium 8.2 L (8.4-10.2) mg/dL Magnesium 1.8 (1.6-2.3) mg/dL Total Bilirubin 0.3 (0.2-1.3) mg/dL AST 42 (17-59) U/L ALT 35 (4-49) U/L Alkaline Phosphatase 160 H (38-126) U/L Total Protein 5.4 L (6.3-8.2) g/dL Albumin 2.9 L (3.5-5.0) g/dL Critical Care Time Critical Care Time: Yes Total Critical Care Time: 31 Critical Care Time: Critical care time includes initial presentation with history physical labs x- rays several reevaluation the patient discussed with the patient family regarding findings discussion with the admitting physician initial orders and documentation the above also included reviewing old charting was available. Disposition Clinical Impression: Hyperkalemia, Ascites, History of lung transplant, Renal insufficiency Disposition: ADMITTED IP TO THIS [facility] Condition: Fair Referrals: Louie Alaniz MD [Primary Care Provider] - 1-2 days
[2020-09-05 17:03] LABS: Albumin 2.9 g/dL (3.5-5.0); Calcium 8.2 mg/dL (8.4-10.2); Magnesium 1.8 mg/dL (1.6-2.3); Total Bilirubin 0.3 mg/dL (0.2-1.3); Total Protein 5.4 g/dL (6.3-8.2)
[2020-09-05 17:04] LABS: Potassium 6.1 mmol/L (3.5-5.1)
[2020-09-05] MEDS ORDERED: SODIUM POLYSTYRENE SULFONATE 15 GM/60 ML BOTTLE PO ONE (17:18)
[2020-09-05] MEDS ORDERED: ALBUTEROL NEBULIZED (CONC) 20 MG, SODIUM CHLORIDE 0.9% NEBULIZ 3 ML INHALATION ONE ×2 (17:19)
[2020-09-05] MEDS ORDERED: FUROSEMIDE 10 MG/ML 4 ML VIAL IV STA (17:19)
[2020-09-05 17:20] LABS: Basophils % (A) 0 %; Eosinophils % (A) 1 %; HCT 30.6 % (39.0-53.0); HGB 10.1 gm/dL (13.0-17.5); Hypochromasia Slight; Lymphocytes # (A) 0.3 k/uL (1.0-4.8); Lymphocytes % (A) 6 %; MCH 33.1 pg (25.0-35.0); MCHC 32.8 g/dL (31.0-37.0); MCV 100.8 fL (80.0-100.0); Macrocytosis Slight; Monocytes # (A) 0.3 k/uL (0-1.0); Monocytes % (A) 7 %; Neutrophils # (A) 3.6 k/uL (1.3-7.7); Neutrophils % (A) 84 %; RBC 3.04 m/uL (4.30-5.90); RDW 15.9 % (11.5-15.5); WBC 4.3 k/uL (3.8-10.6)
[2020-09-05] MEDS ORDERED: INSULIN REGULAR 100 UNIT/ML VIAL IV ONE (17:20)
[2020-09-05 17:21] LABS: Platelet Count 68 k/uL (150-450)
[2020-09-05] MEDS ORDERED: SODIUM BICARB 8.4% 50 ML SYR (1 MEQ/ML) IV STA (17:21)
[2020-09-05] MEDS ORDERED: CALCIUM CHLORIDE 100 MG/ML 10 ML SYRINGE IVP STA (17:22)
[2020-09-05] MEDS ORDERED: NALOXONE 0.4 MG/ML 1 ML VIAL IV PRN (18:25)
[2020-09-05] MEDS ORDERED: diphenhydrAMINE 25 MG CAP PO PRN (18:36)
[2020-09-05] MEDS ORDERED: AZITHROMYCIN 250 MG TAB PO SCH (18:45)
[2020-09-05] MEDS: SODIUM CHLORIDE 0.9% 1,000 ML IV SCH (18:47)
[2020-09-05 20:47] LABS: Glucose,Whole Blood 167 mg/dL (75-99)
[2020-09-05] MEDS: CIPROFLOXACIN HCL 250 MG TAB PO SCH (21:41)
[2020-09-05] MEDS: INSULIN ASPART (NovoLOG) 100 UNIT/ML VIAL SQ SCH (21:42)
[2020-09-06] MEDS: SODIUM CHLORIDE 0.9% 1,000 ML IV SCH ×2 (02:21→08:30)
[2020-09-06 06:23] LABS: Glucose,Whole Blood 152 mg/dL (75-99)
[2020-09-06] MEDS: INSULIN ASPART (NovoLOG) 100 UNIT/ML VIAL SQ SCH ×4 (06:34→21:48)
[2020-09-06] MEDS: FERROUS SULFATE 325 MG TAB PO SCH (08:30)
[2020-09-06] MEDS: ATORVASTATIN 10 MG TAB PO SCH (08:30)
[2020-09-06] MEDS: allopurinoL 100 MG TAB PO SCH (08:30)
[2020-09-06] MEDS: amLODIPine 10 MG TAB PO SCH (08:30)
[2020-09-06] MEDS: CIPROFLOXACIN HCL 250 MG TAB PO SCH (08:30)
[2020-09-06] MEDS ORDERED: FLUDROCORTISONE 0.1 MG TAB PO SCH (09:00)
--- NOTE | 2020-09-06 09:59 | US ---
EXAMINATION TYPE: US abdomen limited DATE OF EXAM: 09/06/2020 COMPARISON: CT August 05, 2020 CLINICAL HISTORY: Ascites. Swelling. Recent paracentesis August 19. Minimal amount of free fluid noted. Small amount of recurrent ascites greatest in the right lower quadrant correlates with most recent CT . IMPRESSION: As above.
[2020-09-06 10:18] LABS: INR 1.1 (<1.2); Prothrombin Time 11.5 sec (9.0-12.0)
[2020-09-06 11:03] LABS: Albumin 3.1 g/dL (3.5-5.0); Calcium 8.7 mg/dL (8.4-10.2); Total Bilirubin 0.5 mg/dL (0.2-1.3); Total Protein 5.8 g/dL (6.3-8.2)
[2020-09-06 11:45] LABS: Potassium 5.5 mmol/L (3.5-5.1)
[2020-09-06 11:59] LABS: Glucose,Whole Blood 131 mg/dL (75-99)
[2020-09-06] MEDS ORDERED: HYDROcodone/APAP 5-325MG 1 EACH TAB PO PRN (13:46)
[2020-09-06] MEDS ORDERED: SULFAMETHOX-TMP 800-160MG 1 EACH TAB PO SCH (14:00)
--- NOTE | 2020-09-06 14:03 | P.HPIM ---
History of Present Illness H&P Date: 09/06/20 HISTORY OF PRESENT ILLNESS This is a 69-year-old male patient of Dr. Louie Alaniz with past medical history of bilateral lung transplant in 2008 at [facility] with underlying COPD, pulmonary fibrosis, hypogammaglobulinemia on IVIG replacement, chronic kidney disease stage III, diabetes mellitus type 2, benign prostatic hypertrophy, generalized osteoarthritis of the spine and degenerative disc disease, gastroesophageal reflux disease, hypertension recurrent depression. Patient had a recent hospitalization at [facility] from August 05 through August 08 at which time he was treated for acute hypoxic respiratory failure secondary to pneumonia, and ascites. Patient underwent a paracentesis during that time with removal of 5.6 L of fluid. Patient was seen by GI at that time and was referred to [facility] for further evaluatio n of liver disease. He subsequently underwent outpatient paracentesis with interventional radiology on August 19 with removal of 5.1 L of serous fluid and is scheduled for repeat on September 16. Patient gives history that he was recently admitted to [facility] for 6 days underwent a paracentesis at that time. Patient cannot provide reason for liver disease. He states he is having frequent bowel movements but is not on lactulose. Patient is not currently on any diuretics. Patient was contacted by [facility] regarding potassium of 5.6 and was instructed to come into the hospital. He is currently denying abdominal pain. Patient presented to [facility] emergency center. Abdominal ultrasound revealed minimal amount of free fluid. Patient was afebrile, heart rate 71, blood pressure 122/64, pulse ox is 98% on room air. W BC 4.3, hemoglobin 10.1, platelet count 68. Sodium 134, potassium 6.1 with repeat at midnight of 5, chloride 111, CO2 16, BUN 53 and creatinine 1.65. Blood 244. Alkaline phosphatase 160, AST 42, ALT 35. Coronavirus not detected. Patient is status post Kayexalate, 1 L of IV fluids, sodium bicarb 1 amp, Lasix 40 mg, regular insulin, calcium chloride. Patient was admitted to the cardiac stepdown unit. Consults are in place with nephrology. Interventional radiology consult was added but there is no indication for paracentesis at this time. Repeat lab work reveals sodium 138, potassium 5.5, chloride 112, CO2 17. Per Dr. Vargas, bicarb drip will be started and patient monitored overnight, repeat blood work in the morning. Anticipate the patient will be able to be discharged home tomorrow. We'll graft level ordered for morning. REVIEW OF SYSTEMS Constitutional: No fever, no chills, no night sweats. No weight change. No weakness, fatigue or lethargy. No daytime sleepiness. EENT: No headache. No blurred vision or double vision, no loss of vision. No loss of Hearing, no ringing in the ears, no dizziness. No nasal drainage or congestion. No epistaxis. No sore throat. Lungs: No shortness of breath, cough, no sputum production. No wheezing. Cardiovascular: No chest pain, no lower extremity edema. No palpitations. No paroxysmal nocturnal dyspnea. No orthopnea. No lightheadedness or dizziness. No syncopal episodes. Abdominal: No abdominal pain. No nausea, vomiting. No diarrhea. No constipation. No bloody or tarry stools.. No loss of appetite. Reported a scites. Genitourinary: No dysuria, increased frequency, urgency. No urinary retention. Musculoskeletal: No myalgias. No muscle weakness, no gait dysfunction, no frequent falls. No back pain. No neck pain. Integumentary: No wounds, no lesions. No rash or pruritus. No unusual bruising. No change in hair or nails. Neurologic: No aphasia. No facial droop. No change in mentation. No head injury. No headache. No paralysis. No paresthesia. Psychiatric: No depression. No anxiety. No mood swings. Endocrine: Reports abnormal blood sugars. No weight change. SOCIAL HISTORY Patient started smoking when he was 11 years old and smoked for a total of close to 30 years. He does have a history of heavy alcohol use for 30 years and quit 14 years ago. He denies any marijuana or illicit drug use. He lives with his girlfriend.. FAMILY HISTORY Mother at age 73 from asthma or COPD. Father at age 68 from asthma. Patient has 6 brothers and 5 sisters not sure of their medical history. Some's siblings have passed. Patient has one daughter with no major medical problems. PHYSICAL EXAMINATION Gen: This is a 69-year-old male. Patient is resting in bed and appears to be comfortable and in no acute distress. HEENT: Head is atraumatic, normocephalic. Pupils equal, round. Sclerae is anicteric. NECK: Supple. No JVD. No lymphadenopathy. No thyromegaly. LUNGS: Clear to auscultation. No wheezes or rhonchi. No intercostal retractions. HEART: Regular rate and rhythm. No murmur. ABDOMEN: Soft. Bowel sounds are present. No masses. No tenderness. No discernible ascites. EXTREMITIES: No pedal edema. No calf tenderness. NEUROLOGICAL: Patient is awake, alert and oriented x3. Cranial nerves 2 through 12 are grossly intact. ASSESSMENT AND PLAN 1. Hyperkalemia and dairy to acute kidney injury. Consult with nephrology. 2. Acute kidney injury. On nephrology consult. Patient is status post IV fluids. Continue to monitor closely. Avoid nephrotoxic agents. 3. Metabolic acidosis secondary to acute kidney injury. Patient to be started on sodium bicarb drip. 4. Transaminitis with ascites, currently stable. 5. History of bilateral lung transplant in 2008 at [facility] with underlying COPD and pulmonary fibrosis. Continue Prograf at home dosing. Prograf level ordered in the morning. 6. Hypogammaglobulinemia status post IVIG, stable. 7. Diabetes mellitus type 2. Patient will be resumed on Levemir 20 units daily and NovoLog scale. 8. Hypertension. Continue Norvasc 10 mg daily, Toprol-XL 100 mg daily. 9. Hyperlipidemia. Continue atorvastatin 10 mg daily. 10. Benign prostatic hypertrophy. Continue Flomax 0.4 mg daily. 11. Chronic gout. Continue allopurinol 100 mg daily. 12. Chronic kidney disease stage III. 13. Remote history of tobacco use and dependence. 14. Remote history of alcohol abuse. 15. Recurrent depression. Continue Zoloft 50 mg daily. 16. Chronic thrombocytopenia. 17. Gastroesophageal reflux disease and GI prophylaxis. Omeprazole. 18. DVT prophylaxis. Heparin subcu Patient will be admitted to the hospital for a minimum of 2 night stay. DISCHARGE PLAN Home on Wednesday. Impression and plan of care have been directed as dictated by the signing physician. Tiera Elder nurse practitioner acting as scribe for signing physician. Past Medical History Past Medical History: COPD, Diabetes Mellitus, GERD/Reflux, Osteoarthritis (OA), Pneumonia, Prostate Disorder, Renal Disease, Respiratory Disorder Additional Past Medical History / Comment(s): recent admission with pneumonia, History of COPD and pulmonary fibrosis. The patient underwent bilateral lung transplantation and 2008. He has diabetes, chronic arthritis with back pain, degenerative disc disease, chronic stage III kidney disease, chronic hypogammaglobulinemia and the patient is receiving IVIG treatment on outpatient basis and the last treatment was in June 2019, left lung pneumonia in July 2019 requiring hospitalization, cirrhosis of the liver History of Any Multi-Drug Resistant Organisms: None Reported Past Surgical History: Heart Catheterization, Hernia Repair Additional Past Surgical History / Comment(s): RT & LT CATARACT REMOVED/COLONO SCOPY/BILATERAL LUNG TRANSPLANT 20082013 HERNIA REPAIR UMBILICAL, LEFT INGUINAL AND FEMEROL. TURP - 2015, paracentesis 08/06/20 Past Anesthesia/Blood Transfusion Reactions: No Reported Reaction Past Psychological History: Anxiety, Depression Smoking Status: Former smoker Past Alcohol Use History: None Reported Additional Past Alcohol Use History / Comment(s): Patient was a smoker one and half to 2 packs per day starting at the age of 12 and quit at approximately age 43. He denies any marijuana, illicit drug use or alcohol use. He lives with his girlfriend. Patient does not have oxygen at home. Past Drug Use History: None Reported - Past Family History Mother Family Medical History: No Reported History Additional Family Medical History / Comment(s): Mother at age 73 from asthma or COPD. Father Additional Family Medical History / Comment(s): Father at age 68 from asthma. Brother(s) Additional Family Medical History / Comment(s): Patient states he has 6 brothers and 5 sisters and is not sure of their medical history. Some have passed. Patient has one daughter with no major medical problems. Medications and Allergies Home Medications Medication Instructions Recorded Confirmed Type Alendronate Sodium [Fosamax] 70 mg PO WE 11/06/13 09/05/20 History Ergocalciferol (Vitamin D2) 50,000 units PO Q15D 11/06/13 09/05/20 History [Drisdol] Fludrocortisone [Florinef] 0.1 mg PO DAILY 11/06/13 09/05/20 History Metoprolol Succinate (ER) [Toprol 100 mg PO DAILY 11/06/13 09/05/20 History XL] Sulfamethox-Tmp 800-160Mg [Bactrim 1 tab PO DIRECTED 11/06/13 09/05/20 History DS 800-160 mg] Tacrolimus [Prograf] 2 mg PO BID 11/06/13 09/05/20 History Multivitamins, Thera [Multivitamin 1 tab PO DAILY 07/23/16 09/05/20 History (formulary)] Ferrous Sulfate [Iron (65 MG 325 mg PO DAILY 09/29/16 09/05/20 History Elemental)] Allopurinol [Zyloprim] 100 mg PO DAILY 05/06/17 09/05/20 History Metoclopramide [Reglan] 10 mg PO DAILY 05/06/17 09/05/20 History amLODIPine [Norvasc] 10 mg PO DAILY 05/06/17 09/05/20 History Omeprazole [PriLOSEC] 40 mg PO BID 03/02/18 09/05/20 History Sertraline [Zoloft] 50 mg PO DAILY 03/02/18 09/05/20 History Tacrolimus [Prograf] 0.5 mg PO BID 08/16/19 09/05/20 History Tamsulosin HCl [Flomax] 0.4 mg PO DAILY 08/16/19 09/05/20 History predniSONE 5 mg PO DAILY #0 08/21/19 09/05/20 Rx Atorvastatin [Lipitor] 10 mg PO DAILY 05/30/20 09/05/20 History Sodium Bicarbonate 650 mg PO BID 08/05/20 09/05/20 History HYDROcodone/APAP 5-325MG [Geraldine 1 tab PO TID PRN 08/15/20 09/05/20 History 5-325] Ciprofloxacin HCl [Cipro] 750 mg PO Q12H 09/04/20 09/05/20 History Azithromycin 250 mg PO DIRECTED 09/05/20 09/05/20 History Insulin Detemir [Levemir Flextouch] 20 unit SQ DAILY 09/05/20 09/05/20 History diphenhydrAMINE [Benadryl] 50 mg PO DAILY PRN 09/05/20 09/05/20 History Allergies Allergy/AdvReac Type Severity Reaction Status Date / Time clarithromycin [From Biaxin] AdvReac instructed Verified 09/05/20 17:21 not to take r/t lung transplant ibuprofen [From Motrin] AdvReac Abdominal Verified 09/05/20 17:21 Pain Physical Exam Vitals: Vital Signs Temp Pulse Pulse Resp BP BP Pulse Ox 09/06/20 08:00 98.1 F 65 18 132/64 99 09/06/20 04:00 98.0 F 71 21 122/64 98 09/06/20 01:27 21 09/05/20 23:33 98.1 F 77 20 125/62 99 09/05/20 21:00 98.2 F 88 20 116/57 97 09/05/20 20:00 98.2 F 90 22 127/68 99 09/05/20 19:36 86 09/05/20 19:15 84 09/05/20 19:00 84 20 129/68 96 09/05/20 18:59 86 09/05/20 18:01 74 18 127/64 96 09/05/20 17:01 72 20 120/69 96 09/05/20 15:56 98.0 F 68 18 111/57 98 Intake and Output 09/05/20 09/06/20 09/06/20 22:59 06:59 14:59 Intake Total 660 Output Total 250 1630 Balance 410 -1630 Intake: Oral 660 Output: Urine 250 1630 Other: Voiding Method Urinal Urinal # Voids 1 Weight 67.585 kg 65.3 kg Results CBC & Chem 7: 09/05/20 16:32 09/06/20 09:34 Labs: Abnormal Lab Results - Last 24 Hours (Table) 09/05/20 09/05/20 09/05/20 Range/Units 16:26 16:32 20:45 RBC 3.04 L (4.30-5.90) m/uL Hgb 10.1 L (13.0-17.5) gm/dL Hct 30.6 L (39.0-53.0) % MCV 100.8 H (80.0-100.0) fL RDW 15.9 H (11.5-15.5) % Plt Count 68 L (150-450) k/uL Lymphocytes # 0.3 L (1.0-4.8) k/uL Sodium 134 L (137-145) mmol/L Potassium 6.1 H* (3.5-5.1) mmol/L Chloride 111 H (98-107) mmol/L Carbon Dioxide 16 L (22-30) mmol/L BUN 53 H (9-20) mg/dL Creatinine 1.65 H (0.66-1.25) mg/dL Glucose 244 H (74-99) mg/dL POC Glucose (mg/dL) 167 H (75-99) mg/dL Calcium 8.2 L (8.4-10.2) mg/dL Alkaline Phosphatase 160 H (38-126) U/L Total Protein 5.4 L (6.3-8.2) g/dL Albumin 2.9 L (3.5-5.0) g/dL 09/06/20 Range/Units 06:22 RBC (4.30-5.90) m/uL Hgb (13.0-17.5) gm/dL Hct (39.0-53.0) % MCV (80.0-100.0) fL RDW (11.5-15.5) % Plt Count (150-450) k/uL Lymphocytes # (1.0-4.8) k/uL Sodium (137-145) mmol/L Potassium (3.5-5.1) mmol/L Chloride (98-107) mmol/L Carbon Dioxide (22-30) mmol/L BUN (9-20) mg/dL Creatinine (0.66-1.25) mg/dL Glucose (74-99) mg/dL POC Glucose (mg/dL) 152 H (75-99) mg/dL Calcium (8.4-10.2) mg/dL Alkaline Phosphatase (38-126) U/L Total Protein (6.3-8.2) g/dL Albumin (3.5-5.0) g/dL Thrombosis Risk Factor Assmnt - Choose All That Apply Each Factor Represents 1 point: Abnormal pulmonary function (COPD) Each Risk Factor Represents 2 Points: Age 61-74 years Thrombosis Risk Factor Assessment Total Risk Factor Score: 3 Thrombosis Risk Factor Assessment Level: Moderate Risk
[2020-09-06] MEDS ORDERED: DEXTROSE 5% IN WATER 1,000 ML with SODIUM BICARB (1 MEQ/ML) 150 ML IV SCH (15:45)
--- NOTE | 2020-09-06 16:03 | CONS ---
CONSULTATION REASON FOR CONSULT: Renal failure, hyperkalemia. HISTORY OF PRESENT ILLNESS: Patient is a 69-year-old male with history of chronic kidney disease, stage IIIB, with baseline creatinine about 1.5 to 1.86 mg/dL, recently at about 2 to 2.5 in July of 2020. Patient has a history of bilateral lung transplant in 2008 for underlying COPD, pulmonary fibrosis. He was admitted to the hospital for increased weakness, not feeling well. His potassium was elevated as outpatient and patient was advised to come into the hospital. He states he has been having a lot of diarrhea for the past few days. Patient also has a history of chronic liver disease and has ascites, for which he has been receiving paracentesis every 2 weeks for the past couple of months. No significant urinary symptoms. Serum creatinine on admission was 1.6. It is currently down to 1.35. Patient is maintained on IV fluids. His potassium was 6.1 on admission; now it is down to 5.5. Patient denies use of any nonsteroidal anti-inflammatory agents at home. He is maintained on Prograf, and patient states that he recently saw his transplant senior vice president and chief information officer at [facility] about 3 days ago. PAST MEDICAL HISTORY: Pulmonary fibrosis, COPD, type 2 diabetes, osteoarthritis, history of pneumonia, bilateral lung transplant, chronic hypogammaglobinemia, receiving IVIg, left lung pneumonia in 2019, liver cirrhosis, etiology not known. PAST SURGICAL HISTORY: Cardiac catheterization, bilateral lung transplant, umbilical hernia repair, inguinal hernia repair, paracentesis, cataract surgery, colonoscopy. SOCIAL HISTORY: Patient is an ex-smoker. No history of alcohol abuse. MEDICATIONS: Medications prior to admission included Fosamax, vitamin D2, Florinef, Toprol, Bactrim, Prograf, Zyloprim, Reglan, Norvasc, Prilosec, Zoloft, Flomax, prednisone, sodium bicarb, Cipro, azithromycin, insulin. ALLERGIES: ALLERGIES include BIAXIN and MOTRIN, which causes abdominal pain. REVIEW OF SYSTEMS: As per HPI. Other systems negative. PHYSICAL EXAMINATION: Patient is comfortable, awake, alert, oriented x3, not in any acute distress. Blood pressure is 153/70, heart rate 68 per minute. He is afebrile. EXAMINATION OF THE HEART: S1 and S2. EXAMINATION OF LUNGS: Bilateral breath sounds are heard. ABDOMEN: Soft, non-tender. There is ascites noted. Examination of lower extremities shows no significant edema. DIRECTOR OF [employer]COLLEGI[employer] exam is grossly intact. LABS: Sodium 138, potassium 5.5, chloride 112, CO2 17, BUN 42, creatinine 1.35. UA is not available. Coronavirus PCR is negative. ASSESSMENT: 1. Acute kidney injury, most likely prerenal, currently improved. No history of use of NSAIDs. Patient did receive IV fluids initially. Currently he is off of IV fluids. He also stated that he had not been drinking much fluids prior to admission. UA will be ordered, and I will check a post-void scan to rule out underlying urine retention. 2. Hyperkalemia associated with acute kidney injury, currently improved; also exacerbated by acidosis. Blood sugars have not been significantly elevated. Avoid use of Kayexalate. Expect improvement with improving renal function and correction of acidosis. Avoid [id number] foods. Patient is also maintained on Bactrim, which will add to his hyperkalemia. 3. Status post bilateral lung transplant for pulmonary fibrosis, chronic obstructive pulmonary disease, maintained on Prograf. 4. Chronic kidney disease, NK of stage III. Baseline creatinine about 1.3 to 1.5, most likely secondary to chronic use of calcium inhibitors. Patient is maintained on Bactrim for prophylaxis post lung transplant. 5. Hypertension. Blood pressure is currently controlled; in fact, slightly on the lower side. 6. Metabolic acidosis, non-gap, associated with acute kidney injury and possibly related to use of tacrolimus as well. Some degree of RTA. PLAN: Add IV bicarb and repeat labs in a.m. Check Prograf level in a.m. Patient may need a maintenance dose of sodium bicarb post discharge, especially if he is going to continue use of Bactrim. He is also advised low-potassium diet. Thank you for this consultation. Will continue to follow the patient with you during his hospitalization. MMODL / IJN: [id number] /
[2020-09-06 17:14] LABS: Glucose,Whole Blood 148 mg/dL (75-99)
[2020-09-06] MEDS: predniSONE 5 MG TAB PO SCH (17:21)
[2020-09-06 20:20] LABS: Glucose,Whole Blood 176 mg/dL (75-99)
[2020-09-06] MEDS: HEPARIN SODIUM,PORCINE 5,000 UNIT/ML 1 ML VIAL SQ SCH (21:48)
[2020-09-06] MEDS: TACROLIMUS 1 MG CAP PO SCH (21:49)
[2020-09-06] MEDS: TACROLIMUS 0.5 MG CAP PO SCH (21:49)
[2020-09-06] MEDS: PANTOPRAZOLE 40 MG TABLET PO SCH (21:49)
[2020-09-06 23:03] LABS: Appearance,Urine Clear (Clear); Bilirubin,Urine Negative (Negative); Blood,Urine Negative (Negative); Color,Urine Light Yellow; Glucose,Urine (UA) Negative (Negative); Ketones,Urine Negative (Negative); Leukocyte Esterase,Urine Negative (Negative); Nitrite,Urine Negative (Negative); PH, Urine 5.5 (5.0-8.0); Protein,Urine Trace (Negative); Specific Gravity,Urine 1.012 (1.001-1.035); Urobilinogen,Urine <2.0 mg/dL (<2.0)
[2020-09-07 03:42] VITALS: TEMP 97.9
[2020-09-07 06:07] LABS: Glucose,Whole Blood 138 mg/dL (75-99)
[2020-09-07] MEDS: INSULIN ASPART (NovoLOG) 100 UNIT/ML VIAL SQ SCH (06:31)
[2020-09-07] MEDS ORDERED: INSULIN DETEMIR (LEVEMIR) 100 UNIT/ML SYR SQ SCH (07:00)
[2020-09-07 07:25] LABS: Calcium 8.7 mg/dL (8.4-10.2)
[2020-09-07] MEDS: ATORVASTATIN 10 MG TAB PO SCH (08:49)
[2020-09-07] MEDS: PANTOPRAZOLE 40 MG TABLET PO SCH (08:49)
[2020-09-07] MEDS: allopurinoL 100 MG TAB PO SCH (08:49)
[2020-09-07] MEDS: FERROUS SULFATE 325 MG TAB PO SCH (08:49)
[2020-09-07] MEDS: amLODIPine 10 MG TAB PO SCH (08:49)
[2020-09-07] MEDS: HEPARIN SODIUM,PORCINE 5,000 UNIT/ML 1 ML VIAL SQ SCH (08:49)
[2020-09-07] MEDS: TACROLIMUS 1 MG CAP PO SCH (08:50)
[2020-09-07] MEDS: TACROLIMUS 0.5 MG CAP PO SCH (08:50)
[2020-09-07] MEDS: predniSONE 5 MG TAB PO SCH (08:51)
[2020-09-07 08:59] VITALS: BP 135/69; PULSE 72; RESP 16
[2020-09-07] MEDS ORDERED: METOPROLOL SUCCINATE (ER) 100 MG TAB.ER.24H PO SCH (09:00)
[2020-09-07] MEDS ORDERED: TAMSULOSIN 0.4 MG CAP.ER.24H PO SCH (09:00)
[2020-09-07] MEDS ORDERED: SERTRALINE 50 MG TAB PO SCH (09:00)
[2020-09-07] MEDS ORDERED: MULTIVITAMINS, THERA 1 EACH TAB PO SCH (09:00)
[2020-09-07] MEDS ORDERED: METOCLOPRAMIDE 10 MG TAB PO SCH (09:00)
--- NOTE | 2020-09-07 09:59 | P.PN ---
Subjective Progress Note Date: 09/07/20 Principal diagnosis: This is 69-year-old male with lung transplant, chronic kidney disease stage IIIB, COPD, cirrhosis, remote history of drinking, who came in because of elevated creatinine and hyperkalemia potassium was 6.1. Etiology is deemed to be from medications including Prograf, Bactrim, He is doing much better. Symptomatically he denies any complaints. No chest pain shortness of breath dizziness is able to walk. He is also known with diabetes, hypogammaglobulinemia receiving IVIG, frequent ascites taps. Is somewhat emaciated Is on immunosuppressive medication with Prograf and prednisone Objective - Vital Signs Vital signs: Vital Signs Temp 97.9 F 09/07/20 03:35 Pulse 72 09/07/20 08:00 Resp 16 09/07/20 08:00 BP 135/69 09/07/20 08:00 Pulse Ox 98 09/07/20 08:00 Intake & Output 09/06/20 09/07/20 09/07/20 18:59 06:59 18:59 Intake Total 1680 236 Output Total 1405 Balance 1680 -1405 236 Weight 65.9 kg Intake: Intake, IV Titration 1000 Amount Sodium Chloride 0.9% 1, 1000 000 ml @ 130 mls/hr IV . [id number] [facility] Rx#:[id number] Oral 680 236 Output: Urine 1405 Other: Voiding Method Urinal Urinal # Voids 0 # Bowel Movements 0 Exertion is very emaciated, Awake alert oriented comfortable HEENT exam no JVP neck is supple no facial asymmetry Lungs are clear of any adventitious sounds good air entry bilaterally. Are sounds are unremarkable for any murmur rub gallop Abdomen is somewhat distended with ascites nontender Extremity exam was no edema Neuro logically awake alert oriented - Labs CBC & Chem 7: 09/05/20 16:32 09/07/20 06:16 Labs: Abnormal Lab Results - Last 24 Hours (Table) 09/06/20 09/06/20 09/06/20 Range/Units 09:34 11:57 17:11 Sodium (137-145) mmol/L Potassium 5.5 H (3.5-5.1) mmol/L Chloride 112 H (98-107) mmol/L Carbon Dioxide 17 L (22-30) mmol/L BUN 42 H (9-20) mg/dL Creatinine 1.35 H (0.66-1.25) mg/dL Glucose 115 H (74-99) mg/dL POC Glucose (mg/dL) 131 H 148 H (75-99) mg/dL Alkaline Phosphatase 145 H (38-126) U/L Total Protein 5.8 L (6.3-8.2) g/dL Albumin 3.1 L (3.5-5.0) g/dL Urine Protein (Negative) 09/06/20 09/06/20 09/07/20 Range/Units 20:18 22:06 06:05 Sodium (137-145) mmol/L Potassium (3.5-5.1) mmol/L Chloride (98-107) mmol/L Carbon Dioxide (22-30) mmol/L BUN (9-20) mg/dL Creatinine (0.66-1.25) mg/dL Glucose (74-99) mg/dL POC Glucose (mg/dL) 176 H 138 H (75-99) mg/dL Alkaline Phosphatase (38-126) U/L Total Protein (6.3-8.2) g/dL Albumin (3.5-5.0) g/dL Urine Protein Trace H (Negative) 09/07/20 Range/Units 06:16 Sodium 136 L (137-145) mmol/L Potassium (3.5-5.1) mmol/L Chloride (98-107) mmol/L Carbon Dioxide (22-30) mmol/L BUN 32 H (9-20) mg/dL Creatinine (0.66-1.25) mg/dL Glucose 133 H (74-99) mg/dL POC Glucose (mg/dL) (75-99) mg/dL Alkaline Phosphatase (38-126) U/L Total Protein (6.3-8.2) g/dL Albumin (3.5-5.0) g/dL Urine Protein (Negative) Assessment and Plan Assessment: Impression 1. Acute kidney injury likely from combination off decreased intake Prograf and possibly from the peritoneal fluid, improved with creatinine coming down to his best of 1.13. 2. Hyperkalemia secondary to compression of Prograf and Bactrim and acute kidne y injury resolved. 3. Chronic kidney disease stage III B. Etiology is likely from Prograf. His u rinalysis is benign on 09/06/2020 with trace proteinuria 4. Bilateral lung transplant, etiology was probably fibrosis and COPD. On immunosuppressive medication including Prograf and prednisone. 5. Chronic liver disease with cirrhosis and ascites needing taps frequently 6. Acidosis secondary to acute kidney injury, resolved 7. Cachexia and poor nutritional state Recommendation 1. Maintain current medication including the immunosuppressives 2. Patient can be discharged and followed up in the outpatient.
--- NOTE | 2020-09-07 12:40 | P.DS ---
Providers Date of admission: 09/05/20 18:31 Attending physician: Parisa Sosa MD Consults: 09/05/20 18:32 Consult Physician Routine Consulting Provider: Akira Lee Consult Reason/Comments: Paracentesis Do you want consulting provider notified?: Yes, Notify in am Consult Physician Routine Consulting Provider: Carmen Vargas Consult Reason/Comments: Hyperkalemia Do you want consulting provider notified?: Yes Primary care physician: Louie Alaniz [facility] Course: This is a 69-year-old male patient of Dr. Louie Alaniz with past medical history of bilateral lung transplant in 2008 at [facility] with underlying COPD, pulmonary fibrosis, hypogammaglobulinemia on IVIG replacement, chronic kidney disease stage III, diabetes mellitus type 2, benign prostatic hypertrophy, generalized osteoarthritis of the spine and degenerative disc disease, gastroesophageal reflux disease, hypertension recurrent depression. Patient had a recent hospitalization at [facility] from August 05 through August 08 at which time he was treated for acute hypoxic respiratory failure secondary to pneumonia, and ascites. Patient underwent a paracentesis during that time with removal of 5.6 L of fluid. Patient was seen by GI at that time and was referred to [facility] for further evaluation of liver disease. He subsequently underwent outpatient paracentesis with interventional radiology on August 19 with removal of 5.1 L of serous fluid and is scheduled for repeat on September 16. Patient gives history that he was recently admitted to Hospital [facility] for 6 days underwent a paracentesis at that time. Patient cannot provide reason for liver disease. He states he is having frequent bowel movements but is not on lactulose. Patient is not currently on any diuretics. Patient was contacted by [facility] regarding potassium of 5.6 and was instructed to come into the hospital. He is currently denying abdominal pain. Patient presented to [facility] emergency center. Abdominal ultrasound revealed minimal amount of free fluid. Patient was afebrile, heart rate 71, blood pressure 122/64, pulse ox is 98% on room air. W BC 4.3, hemoglobin 10.1, platelet count 68. Sodium 134, potassium 6.1 with repeat at midnight of 5, chloride 111, CO2 16, BUN 53 and creatinine 1.65. Blood 244. Alkaline phosphatase 160, AST 42, ALT 35. Coronavirus not detected. Patient is status post Kayexalate, 1 L of IV fluids, sodium bicarb 1 amp, Lasix 40 mg, regular insulin, calcium chloride. Patient was admitted to the cardiac stepdown unit. Consults are in place with nephrology. Interventional radiology consult was added but there is no indication for paracentesis at this time. Repeat lab work reveals sodium 138, potassium 5.5, chloride 112, CO2 17. Per Dr. Vargas, bicarb drip will be started and patient monitored overnight, repeat blood work in the morning. Anticipate the patient will be able to be discharged home tomorrow. We'll graft level ordered for morning. 09/07 and patient examined at bedside. Denies any shortness or breath or chest pain. Blood work evaluated suggested a potassium of 5. Creatinine improved to 1.18 from 1.35. It appears patient was not drinking enough water and is only drinking coffee. Would recommend 0280-5824 mL of fluid restriction as patient has cirrhosis and ascites. Patient to hold Lasix, Aldactone, hydrochlorothiazide, lisinopril until follow-up labs as outpatient. Prograf levels are pending. Patient was seen outpatient nephrology for readjustment of her Prograf dose. Hold Bactrim continue Cipro for SBP. PHYSICAL EXAMINATION Gen: This is a 69-year-old male. Patient is resting in bed and appears to be comfortable and in no acute distress. HEENT: Head is atraumatic, normocephalic. Pupils equal, round. Sclerae is anicteric. NECK: Supple. No JVD. No lymphadenopathy. No thyromegaly. LUNGS: Clear to auscultation. No wheezes or rhonchi. No intercostal retractions. HEART: Regular rate and rhythm. No murmur. ABDOMEN: Soft. Bowel sounds are present. No masses. No tenderness. Abdomen distended minimal ascites EXTREMITIES: No pedal edema. No calf tenderness. NEUROLOGICAL: Patient is awake, alert and oriented x3. Assessment and plan 1. Hyperkalemia and dairy to acute kidney injury from medications including Bactrim and Prograf and decreased oral intake of fluids 2. Acute kidney injury. 3. Metabolic acidosis secondary to acute kidney injury. 4. Transaminitis with ascites, currently stable. 5. History of bilateral lung transplant in 2008 at [facility] with underlying COPD and pulmonary fibrosis. 6. Hypogammaglobulinemia status post IVIG, stable. 7. Diabetes mellitus type 2. 8. Hypertension. 9. Hyperlipidemia. 10. Benign prostatic hypertrophy. 11. Chronic gout. 12. Chronic kidney disease stage III. 13. Remote history of tobacco use and dependence. 14. Remote history of alcohol abuse. 15. Recurrent depression. 16. Chronic thrombocytopenia. 17. Gastroesophageal reflux disease Disposition home with some Patient Condition at Discharge: Fair Plan - Discharge Summary Discharge Rx Participant: No New Discharge Prescriptions: Continue Metoprolol Succinate (ER) [Toprol XL] 100 mg PO DAILY Sulfamethox-Tmp 800-160Mg [Bactrim DS 800-160 mg] 1 tab PO DIRECTED Tacrolimus [Prograf] 2 mg PO BID Fludrocortisone [Florinef] 0.1 mg PO DAILY Ergocalciferol (Vitamin D2) [Drisdol] 50,000 units PO Q15D Alendronate Sodium [Fosamax] 70 mg PO WE Multivitamins, Thera [Multivitamin (formulary)] 1 tab PO DAILY Ferrous Sulfate [Iron (65 MG Elemental)] 325 mg PO DAILY Allopurinol [Zyloprim] 100 mg PO DAILY amLODIPine [Norvasc] 10 mg PO DAILY Metoclopramide [Reglan] 10 mg PO DAILY Sertraline [Zoloft] 50 mg PO DAILY Omeprazole [PriLOSEC] 40 mg PO BID Tacrolimus [Prograf] 0.5 mg PO BID Tamsulosin HCl [Flomax] 0.4 mg PO DAILY predniSONE 5 mg PO DAILY #0 Atorvastatin [Lipitor] 10 mg PO DAILY Sodium Bicarbonate 650 mg PO BID HYDROcodone/APAP 5-325MG [[place] 5-325] 1 tab PO TID PRN PRN Reason: Pain Ciprofloxacin HCl [Cipro] 750 mg PO Q12H Azithromycin 250 mg PO DIRECTED diphenhydrAMINE [Benadryl] 50 mg PO DAILY PRN PRN Reason: when getting IV infusions Insulin Detemir [Levemir Flextouch] 20 unit SQ DAILY Discharge Medication List Alendronate Sodium [Fosamax] 70 mg PO WE 11/06/13 [History] Ergocalciferol (Vitamin D2) [Drisdol] 50,000 units PO Q15D 11/06/13 [History] Fludrocortisone [Florinef] 0.1 mg PO DAILY 11/06/13 [History] Metoprolol Succinate (ER) [Toprol XL] 100 mg PO DAILY 11/06/13 [History] Sulfamethox-Tmp 800-160Mg [Bactrim DS 800-160 mg] 1 tab PO DIRECTED 11/06/13 [History] Tacrolimus [Prograf] 2 mg PO BID 11/06/13 [History] Multivitamins, Thera [Multivitamin (formulary)] 1 tab PO DAILY 07/23/16 [History] Ferrous Sulfate [Iron (65 MG Elemental)] 325 mg PO DAILY 09/29/16 [History] Allopurinol [Zyloprim] 100 mg PO DAILY 05/06/17 [History] Metoclopramide [Reglan] 10 mg PO DAILY 05/06/17 [History] amLODIPine [Norvasc] 10 mg PO DAILY 05/06/17 [History] Omeprazole [PriLOSEC] 40 mg PO BID 03/02/18 [History] Sertraline [Zoloft] 50 mg PO DAILY 03/02/18 [History] Tacrolimus [Prograf] 0.5 mg PO BID 08/16/19 [History] Tamsulosin HCl [Flomax] 0.4 mg PO DAILY 08/16/19 [History] predniSONE 5 mg PO DAILY #0 08/21/19 [Rx] Atorvastatin [Lipitor] 10 mg PO DAILY 05/30/20 [History] Sodium Bicarbonate 650 mg PO BID 08/05/20 [History] HYDROcodone/APAP 5-325MG [[place]agland 5-325] 1 tab PO TID PRN 08/15/20 [History] Ciprofloxacin HCl [Cipro] 750 mg PO Q12H 09/04/20 [History] Azithromycin 250 mg PO DIRECTED 09/05/20 [History] Insulin Detemir [Levemir Flextouch] 20 unit SQ DAILY 09/05/20 [History] diphenhydrAMINE [Benadryl] 50 mg PO DAILY PRN 09/05/20 [History] Follow up Appointment(s)/Referral(s): Louie Alaniz MD [Primary Care Provider] - 1-2 days Discharge Disposition: HOME SELF-CARE
[2020-09-10] MEDS ORDERED: ERGOCALCIFEROL 1,250 MCG (50,000 IU) CAPSULE PO SCH (09:00)
[2020-09-11] MEDS ORDERED: PATIENT'S OWN (Alendronate Sodium [Fosamax] 70 MG Tablet) PO SCH (07:00)
== END 2020-09-07 14:30 | disposition home or self-care (01) | DRG 641 ==
LOC: EC 15:39 → 3SCARD 18:31
PROVIDERS: ADMIT Internal Medicine; ATTEND Internal Medicine
DX: E87.5 Hyperkalemia (principal); D80.1 Nonfamilial hypogammaglobulinemia; F33.9 Major depressive disorder, recurrent, unspecified; N17.9 Acute kidney failure, unspecified; R18.8 Other ascites; R64 Cachexia; Z94.2 Lung transplant status; D69.6 Thrombocytopenia, unspecified; E11.22 Type 2 diabetes mellitus with diabetic chronic kidney disease; E78.5 Hyperlipidemia, unspecified; E87.2 Acidosis; Z87.891 Personal history of nicotine dependence; I45.10 Unspecified right bundle-branch block; Z20.822 Contact with and (suspected) exposure to COVID-19; F41.9 Anxiety disorder, unspecified; I12.9 Hypertensive chronic kidney disease with stage 1 through stage 4 chronic kidney disease, or unspecified chronic kidney disease; J44.9 Chronic obstructive pulmonary disease, unspecified; J84.10 Pulmonary fibrosis, unspecified; K21.9 Gastro-esophageal reflux disease without esophagitis; K74.60 Unspecified cirrhosis of liver; M15.9 Polyosteoarthritis, unspecified; M1A.9XX0 Chronic gout, unspecified, without tophus (tophi); N18.32 Chronic kidney disease, stage 3b; N40.0 Benign prostatic hyperplasia without lower urinary tract symptoms; Z68.23 Body mass index [BMI] 23.0-23.9, adult; T45.1X5A Adverse effect of antineoplastic and immunosuppressive drugs, initial encounter; Z87.01 Personal history of pneumonia (recurrent); Z79.4 Long term (current) use of insulin; Z79.52 Long term (current) use of systemic steroids; Z79.83 Long term (current) use of bisphosphonates; Z79.899 Other long term (current) drug therapy; Z79.2 Long term (current) use of antibiotics; Z82.5 Family history of asthma and other chronic lower respiratory diseases; F10.11 Alcohol abuse, in remission; R74.01 Elevation of levels of liver transaminase levels; Z88.6 Allergy status to analgesic agent; Z88.1 Allergy status to other antibiotic agents
CPT/HCPCS: 36415; 76705; 80048; 80053; 80197; 81003; 83735; 84132; 85025; 85610; 87635; 93005; 94644; 96374; 96375; 99291

== ENCOUNTER 2020-09-16 11:33 | Day surgery (SDC) | payer MEDICARE, OTHER ==
[2020-09-16 12:49] LABS: Mean Platelet Volume 8.4
[2020-09-16 12:54] LABS: Platelet Count 72 k/uL (150-450)
[2020-09-16 13:07] LABS: Prothrombin Time 10.8 sec (9.0-12.0)
[2020-09-16 13:35] VITALS: RESP 16; TEMP 97.9
[2020-09-16] MEDS: ALBUMIN HUMAN 25% 50 ML in EMPTY BAG 1 BAG IVPB SCH ×2 (13:48→14:01)
[2020-09-16 14:23] VITALS: BP 136/68; PULSE 61
--- NOTE | 2020-09-16 16:16 | US ---
EXAMINATION TYPE: US paracentesis abd w/image DATE OF EXAM: 09/16/2020 COMPARISON: NONE HISTORY: Ascites. PROCEDURE: Maximal barrier technique was utilized. The skin overlying a suitable pocket of fluid was localized with ultrasound and the overlying skin was prepped and draped. Ultrasound was utilized with sterile technique. Lidocaine was used for local anesthesia and a skin meri made with a scalpel. Catheter was advanced under direct ultrasound guidance into a suitable pocket of fluid and approximately 4.8 liter s of serous fluid were removed. Catheter was withdrawn and hemostasis achieved. There is no immedia te complication; the patient is discharged in stable condition. IMPRESSION: STATUS POST ULTRASOUND GUIDED PARACENTESIS FOR PALLIATION OF ASCITES. THIS PROCEDURE WA S PERFORMED BY THE UNDERSIGNED.
== END 2020-09-16 14:35 | disposition home or self-care (01) ==
LOC: RADPROMAIN 11:33
PROVIDERS: ATTEND Internal Medicine
DX: R18.8 Other ascites (principal)
CPT/HCPCS: 82565; 82947; 85049; 85610; 36415; 49083; P9047

== ENCOUNTER → 2020-09-17 | Outpatient (CLI) | payer MEDICARE, OTHER ==
[~2020-09-17] MED LIST changes: +ALBUTEROL NEBULIZED 2.5 MG/3 ML INHALATION ONE; -IODINE/POTASS IOD (LUGOLS) BOTTLE TOPICAL ONE; +[UNRECOGNIZED DRUG - OTHER] INHALATION ONE
[2020-09-17 14:18] VITALS: PULSE 76
== END ==
LOC: CPPFTMAIN 13:14
PROVIDERS: ATTEND Internal Medicine
DX: Z94.2 Lung transplant status (principal)
CPT/HCPCS: 94640; 94642

== ENCOUNTER 2020-09-30 11:22 | Inpatient (IN) | payer MEDICARE, OTHER ==
--- NOTE | 2020-09-30 11:59 | ED ---
General Adult HPI - General Chief complaint: Shortness of Breath Stated complaint: SOB Time Seen by Provider: 09/30/20 11:30 Source: EMS Mode of arrival: ambulatory Limitations: no limitations - History of Present Illness Initial comments: Dictation was produced using [employer] dictation software. please excuse any grammatical, word or spelling errors. This patient was cared for during a federal and state declared state of emergency secondary to Covid 19 Chief Complaint: Patient 69-year-old male presents to the emergency department for nausea vomiting and abdominal pain History of Present Illness: 69-year-old male is past medical history of cirrhosis requiring frequent paracentesis. Patient had an appointment today at 12:30 AM. He states that he is here to the emergency department because his girlfriend told him that he had a fever. Patient has history of chronic abdominal and back pain. He states that his pain is typical of his usual symptoms. Patient states that he was initially nauseated earlier today however his symptoms improved. His girlfriend checked his temperature and he was told by his girlfriend that he had a fever. Patient states he is thirsty and wants water. He does complain of some mild dyspnea. The ROS documented in this emergency department record has been reviewed and confirmed by me. Those systems with pertinent positive or negative responses have been documented in the HPI. All other systems are other negative and/or noncontributory. PHYSICAL EXAM: General Impression: Alert and oriented x3, not in acute distress HEENT: Normocephalic atraumatic, extra-ocular movements intact, pupils equal and reactive to light bilaterally, mucous membranes moist. Cardiovascular: Heart regular rate and rhythm Chest: Able to complete full sentences, no retractions, no tachypnea Abdomen: abdomen soft, non-tender, distended, no organomegaly Musculoskeletal: Pulses present and equal in all extremities, no peripheral edema Motor: no focal deficits noted Neurological: CN II-XII grossly intact, no focal motor or sensory deficits noted Skin: Intact with no visualized rashes Psych: Normal affect and mood ED course: 69 yo male presents with chief complaint of dyspnea and constitutional symptoms. He has past medical history of cirrhosis. He does have history of ascites that was supposed to be drained by interventional radiology today. Patient states that he has been having low-grade temperatures and fevers at home. He has been having chills. EKG interpretation: Ventricular rate 90, normal sinus rhythm, right bundle branch block,. Interval 156, QS 150, QTc 481. No IN prolongation, no QTC prolongation, no ST or T-wave changes noted. EKG compared to 09/05/2020 showing no changes. Overall, this EKG is unremarkable Laboratory evaluation obtained. Leukocytosis 13.7. Hemoglobin 12.3. Platelets of 90. Patient does not generally have leukocytosis. Metabolic panel is unremarkable. He does have elevated renal markers. There is some degree of what appears to be dehydration. Is not acidotic. Coag panel is unremarkable. Carotid virus is negative. Chest x-ray shows bilateral patchy infiltrates with small right pleural effusion. Blood cultures ordered. Patient was able to get a paracentesis today. Ascites fluid was sent for laboratory evaluation. Jayde ent reevaluated bedside at 3:20 PM with improvement of symptoms. However given his age and comorbidities there is concern that patient has a bacterial infection. Patient doesn't have any overwhelming respiratory symptoms however he does report having cough and persistent chills. Case discussed Dr. Gerard who is willing to accept patients care. Patient was ordered for Levaquin for treating presumed acquired pneumonia. - Related Data Home Medications Medication Instructions Recorded Confirmed Alendronate Sodium [Fosamax] 70 mg PO WE 11/06/13 09/16/20 Ergocalciferol (Vitamin D2) 50,000 units PO Q15D 11/06/13 09/16/20 [Drisdol] Fludrocortisone [Florinef] 0.1 mg PO DAILY 11/06/13 09/16/20 Metoprolol Succinate (ER) [Toprol 100 mg PO DAILY 11/06/13 09/16/20 XL] Tacrolimus [Prograf] 2 mg PO BID 11/06/13 09/16/20 Multivitamins, Thera [Multivitamin 1 tab PO DAILY 07/23/16 09/16/20 (formulary)] Ferrous Sulfate [Iron (65 MG 325 mg PO DAILY 09/29/16 09/16/20 Elemental)] Allopurinol [Zyloprim] 100 mg PO DAILY 05/06/17 09/16/20 Metoclopramide [Reglan] 10 mg PO DAILY 05/06/17 09/16/20 amLODIPine [Norvasc] 10 mg PO DAILY 05/06/17 09/16/20 Omeprazole [PriLOSEC] 40 mg PO BID 03/02/18 09/16/20 Sertraline [Zoloft] 50 mg PO DAILY 03/02/18 09/16/20 Tacrolimus [Prograf] 0.5 mg PO BID 08/16/19 09/16/20 Tamsulosin HCl [Flomax] 0.4 mg PO DAILY 08/16/19 09/16/20 Atorvastatin [Lipitor] 10 mg PO DAILY 05/30/20 09/16/20 Sodium Bicarbonate 650 mg PO BID 08/05/20 09/16/20 HYDROcodone/APAP 5-325MG [[place] 1 tab PO TID PRN 08/15/20 09/16/20 5-325] Insulin Detemir [Levemir Flextouch] 20 unit SQ HS 09/05/20 09/16/20 Previous Rx's Medication Instructions Recorded predniSONE 5 mg PO DAILY #0 08/21/19 Allergies Allergy/AdvReac Type Severity Reaction Status Date / Time clarithromycin [From Biaxin] AdvReac instructed Verified 09/30/20 11:27 not to take r/t lung transplant ibuprofen [From Motrin] AdvReac Abdominal Verified 09/30/20 11:27 Pain Review of Systems ROS Statement: Those systems with pertinent positive or pertinent negative responses have been documented in the HPI. ROS Other: All systems not noted in ROS Statement are negative. Past Medical History Past Medical History: COPD, Diabetes Mellitus, GERD/Reflux, Osteoarthritis (OA), Pneumonia, Prostate Disorder, Renal Disease, Respiratory Disorder Additional Past Medical History / Comment(s): recent admission with pneumonia, History of COPD and pulmonary fibrosis. The patient underwent bilateral lung transplantation and 2008. He has diabetes, chronic arthritis with back pain, degenerative disc disease, chronic stage III kidney disease, chronic hypogammaglobulinemia and the patient is receiving IVIG treatment on outpatient basis and the last treatment was in June 2019, left lung pneumonia in July 2019 requiring hospitalization, cirrhosis of the liver History of Any Multi-Drug Resistant Organisms: None Reported Past Surgical History: Heart Catheterization, Hernia Repair Additional Past Surgical History / Comment(s): RT & LT CATARACT REMOVED/COLONOSCOPY/BILATERAL LUNG TRANSPLANT 20082013 HERNIA REPAIR UMBILICAL, LEFT INGUINAL AND FEMEROL. TURP - 2015, paracentesis 08/06/20 Past Anesthesia/Blood Transfusion Reactions: No Reported Reaction Past Psychological History: Anxiety, Depression Smoking Status: Former smoker Past Alcohol Use History: None Reported Past Drug Use History: None Reported - Past Family History Mother Family Medical History: No Reported History Additional Family Medical History / Comment(s): Mother at age 73 from asthma or COPD. Father Additional Family Medical History / Comment(s): Father at age 68 from asthma. Brother(s) Additional Family Medical History / Comment(s): Patient states he has 6 brothers and 5 sisters and is not sure of their medical history. Some have passed. Patient has one daughter with no major medical problems. General Exam Limitations: no limitations Course Vital Signs 09/30/20 09/30/20 09/30/20 11:24 13:55 14:10 Temperature 99.6 F 100.4 F H Pulse Rate 101 H Pulse Rate [ 75 76 Pulse Oximetery ] Respiratory 26 H 16 16 Rate Blood Pressure 130/70 Blood Pressure 111/58 106/58 [Right Arm] O2 Sat by Pulse 98 99 99 Oximetry 09/30/20 09/30/20 09/30/20 14:25 14:40 14:55 Temperature Pulse Rate Pulse Rate [ 72 74 73 Pulse Oximetery ] Respiratory 18 20 20 Rate Blood Pressure Blood Pressure 110/56 100/59 120/59 [Right Arm] O2 Sat by Pulse 98 97 98 Oximetry Medical Decision Making - Lab Data Result diagrams: 09/30/20 11:59 09/30/20 11:59 Lab Results 09/30/20 09/30/20 09/30/20 Range/Units 11:47 11:59 11:59 WBC 13.7 H (3.8-10.6) k/uL RBC 3.81 L (4.30-5.90) m/uL Hgb 12.3 L (13.0-17.5) gm/dL Hct 37.0 L (39.0-53.0) % MCV 97.0 (80.0-100.0) fL MCH 32.4 (25.0-35.0) pg MCHC 33.4 (31.0-37.0) g/dL RDW 15.3 (11.5-15.5) % Plt Count 90 L (150-450) k/uL MPV 8.2 Neutrophils % 87 % Lymphocytes % 3 % Monocytes % 8 % Eosinophils % 0 % Basophils % 0 % Neutrophils # 12.0 H (1.3-7.7) k/uL Lymphocytes # 0.5 L (1.0-4.8) k/uL Monocytes # 1.1 H (0-1.0) k/uL Eosinophils # 0.1 (0-0.7) k/uL Basophils # 0.0 (0-0.2) k/uL PT (9.0-12.0) sec INR (<1.2) APTT (22.0-30.0) sec Sodium 135 L (137-145) mmol/L Potassium 4.2 (3.5-5.1) mmol/L Chloride 104 (98-107) mmol/L Carbon Dioxide 22 (22-30) mmol/L Anion Gap 9 mmol/L BUN 47 H (9-20) mg/dL Creatinine 1.90 H (0.66-1.25) mg/dL Est GFR (CKD-EPI)AfAm 40 (>60 ml/min/1.73 sqM) Est GFR (CKD-EPI)NonAf 35 (>60 ml/min/1.73 sqM) Glucose 165 H (74-99) mg/dL Calcium 8.5 (8.4-10.2) mg/dL Total Bilirubin 0.7 (0.2-1.3) mg/dL AST 38 (17-59) U/L ALT 31 (4-49) U/L Alkaline Phosphatase 169 H (38-126) U/L Total Protein 5.8 L (6.3-8.2) g/dL Albumin 3.2 L (3.5-5.0) g/dL Lipase 37 (23-300) U/L Coronavirus (PCR) Not Detected (Not Detectd) 09/30/20 Range/Units 12:53 WBC (3.8-10.6) k/uL RBC (4.30-5.90) m/uL Hgb (13.0-17.5) gm/dL Hct (39.0-53.0) % MCV (80.0-100.0) fL MCH (25.0-35.0) pg MCHC (31.0-37.0) g/dL RDW (11.5-15.5) % Plt Count (150-450) k/uL MPV Neutrophils % % Lymphocytes % % Monocytes % % Eosinophils % % Basophils % % Neutrophils # (1.3-7.7) k/uL Lymphocytes # (1.0-4.8) k/uL Monocytes # (0-1.0) k/uL Eosinophils # (0-0.7) k/uL Basophils # (0-0.2) k/uL PT 11.2 (9.0-12.0) sec INR 1.1 (<1.2) APTT 23.3 (22.0-30.0) sec Sodium (137-145) mmol/L Potassium (3.5-5.1) mmol/L Chloride (98-107) mmol/L Carbon Dioxide (22-30) mmol/L Anion Gap mmol/L BUN (9-20) mg/dL Creatinine (0.66-1.25) mg/dL Est GFR (CKD-EPI)AfAm (>60 ml/min/1.73 sqM) Est GFR (CKD-EPI)NonAf (>60 ml/min/1.73 sqM) Glucose (74-99) mg/dL Calcium (8.4-10.2) mg/dL Total Bilirubin (0.2-1.3) mg/dL AST (17-59) U/L ALT (4-49) U/L Alkaline Phosphatase (38-126) U/L Total Protein (6.3-8.2) g/dL Albumin (3.5-5.0) g/dL Lipase (23-300) U/L Coronavirus (PCR) (Not Detectd) Disposition Clinical Impression: Pneumonia Disposition: ADMITTED IP TO THIS [facility] Condition: Fair Referrals: Louie Alaniz MD [Primary Care Provider] - 1-2 days Decision Time: 15:24
[2020-09-30 12:28] LABS: Basophils % (A) 0 %; Eosinophils # (A) 0.1 k/uL (0-0.7); Eosinophils % (A) 0 %; HGB 12.3 gm/dL (13.0-17.5); Lymphocytes # (A) 0.5 k/uL (1.0-4.8); Lymphocytes % (A) 3 %; MCH 32.4 pg (25.0-35.0); MCHC 33.4 g/dL (31.0-37.0); Mean Platelet Volume 8.2; Monocytes # (A) 1.1 k/uL (0-1.0); Monocytes % (A) 8 %; Neutrophils % (A) 87 %; RBC 3.81 m/uL (4.30-5.90); RDW 15.3 % (11.5-15.5); WBC 13.7 k/uL (3.8-10.6)
[2020-09-30 12:31] LABS: Platelet Count 90 k/uL (150-450)
--- NOTE | 2020-09-30 12:32 | XR ---
EXAMINATION TYPE: XR chest 1V portable DATE OF EXAM: 09/30/2020 COMPARISON: 08/07/2020 HISTORY: Shortness of breath TECHNIQUE: Single frontal view of the chest is obtained. FINDINGS: Patchy bilateral infiltrate with small right effusion. Heart size stable. Postoperative ch anges. Diffuse osteopenia. Atherosclerotic change aorta. IMPRESSION: Bilateral patchy infiltrates with small right effusion stable.
[2020-09-30 12:56] LABS: Albumin 3.2 g/dL (3.5-5.0); Calcium 8.5 mg/dL (8.4-10.2); Potassium 4.2 mmol/L (3.5-5.1); Total Bilirubin 0.7 mg/dL (0.2-1.3); Total Protein 5.8 g/dL (6.3-8.2)
[2020-09-30 13:34] LABS: INR 1.1 (<1.2); Partial Thromboplastin Time 23.3 sec (22.0-30.0); Prothrombin Time 11.2 sec (9.0-12.0)
[2020-09-30] MEDS ORDERED: LEVOFLOXACIN 750MG-D5W PMX 750 MG in DEXTROSE/WATER 1 150ML.BAG IVPB STA (15:00)
[2020-09-30] MEDS ORDERED: PNEUMONIA PROTOCOL UTILIZED 1 EACH MISC PO PRN (15:24)
--- NOTE | 2020-09-30 15:56 | US ---
Ultrasound-guided paracentesis. DATE OF EXAM: 09/30/2020 CLINICAL HISTORY: Ascites The procedure was discussed with the patient. The risks, complications, benefits, and alternatives we re discussed and any questions were answered. Informed consent was obtained. The patient was placed s upine on the ultrasound table and prepped and draped in the usual sterile fashion. All elements of maximal barrier technique were utilized. Under ultrasound guidance, access into the right lower quadrant was obtained, via the paracentesis catheter system and direct ultrasound guidanc e. Approximately 5.4 liters of straw-colored fluid was removed. The patient was stable throughout the pr ocedure and remained stable upon discharge from Department of Radiology. Sample sent to pathology for analysis. IMPRESSION: Successful paracentesis under ultrasound guidance.
[2020-09-30] MEDS: ALBUMIN HUMAN 25% 50 ML in EMPTY BAG 1 BAG IVPB SCH ×2 (15:58→17:12)
--- NOTE | 2020-09-30 17:20 | P.HPIM ---
History of Present Illness H&P Date: 09/30/20 HISTORY OF PRESENT ILLNESS This is a 69-year-old male patient of Dr. Louie Alaniz with past medical history of bilateral lung transplant in 2008 at [facility] with underlying COPD, pulmonary fibrosis, hypogammaglobulinemia on IVIG replacement, chronic kidney disease stage III, diabetes mellitus type 2, benign prostatic hypertrophy, generalized osteoarthritis of the spine and degenerative disc disease, gastroesophageal reflux disease, hypertension recurrent depression. Patient had a recent hospitalization at [facility] and was treated for worsening ascites fluid overload along with intractable nausea vomiting and significant shortness of breath had paracentesis and at the time was having lactic acidosis with worsening metabolic problem. Patient was treated and was discharged within 48 hours and has done well. Patient presented to demurs department at [facility] today complaining of worsening dyspnea and shortness of breath intractable nausea and vomiting and distended abdomen with worsening pain and discomfort. Was seen and evaluated had elevated white blood cell at 13,000 left shifted chest x-ray showed slightly fluid overloaded by basilar infiltrate consistent with pneumonia. Patient was giving 1 g of Rocephin along with azithromycin paracentesis was done by radiology had made the symptoms slightly but better. Patient will be admitted to the hospital for the next day or 2 for IV antibiotic management along with O2 and updraft treatment. Also of my surprise patient found to be in acute kidney injury with chronic kidney disease his creatinine jumped quite bed since last admission. Patient will be seen nephrology continue hydration repeat BUN/creatinine next 24 hours. REVIEW OF SYSTEMS Constitutional: No fever, no chills, no night sweats. No weight change. No weakness, fatigue or lethargy. No daytime sleepiness. EENT: No headache. No blurred vision or double vision, no loss of vision. No loss of Hearing, no ringing in the ears, no dizziness. No nasal drainage or congestion. No epistaxis. No sore throat. Lungs: No shortness of breath, cough, no sputum production. No wheezing. Cardiovascular: No chest pain, no lower extremity edema. No palpitations. No paroxysmal nocturnal dyspnea. No orthopnea. No lightheadedness or dizziness. No syncopal episodes. Abdominal: No abdominal pain. No nausea, vomiting. No diarrhea. No constipation. No bloody or tarry stools.. No loss of appetite. Reported ascites. Genitourinary: No dysuria, increased frequency, urgency. No urinary retention. Musculoskeletal: No myalgias. No muscle weakness, no gait dysfunction, no frequent falls. No back pain. No neck pain. Integumentary: No wounds, no lesions. No rash or pruritus. No unusual bruising. No change in hair or nails. Neurologic: No aphasia. No facial droop. No change in mentation. No head injury. No headache. No paralysis. No paresthesia. Psychiatric: No depression. No anxiety. No mood swings. Endocrine: Reports abnormal blood sugars. No weight change. SOCIAL HISTORY Patient started smoking when he was 11 years old and smoked for a total of close to 30 years. He does have a history of heavy alcohol use for 30 years and quit 14 years ago. He denies any marijuana or illicit drug use. He lives with his girlfriend.. FAMILY HISTORY Mother at age 73 from asthma or COPD. Father at age 68 from asthma. Patient has 6 brothers and 5 sisters not sure of their medical history. Some's siblings have passed. Patient has one daughter with no major medical problems. PHYSICAL EXAMINATION Gen: This is a 69-year-old male. Patient is resting in bed and appears to be comfortable and in no acute distress. HEENT: Head is atraumatic, normocephalic. Pupils equal, round. Sclerae is anicteric. NECK: Supple. No JVD. No lymphadenopathy. No thyromegaly. LUNGS: Decreased breath some bilateral fine rhonchi positive mild crackles with mild expiratory wheezes. HEART: Regular rate and rhythm. No murmur. ABDOMEN: Soft positive bowel sounds slightly distended abdomen with sign of paracentesis was drain with no bleeding. EXTREMITIES: No pedal edema. No calf tenderness. NEUROLOGICAL: Patient is awake, alert and oriented x3. Cranial nerves 2 through 12 are grossly intact. ASSESSMENT AND PLAN 1. Severe dyspnea and shortness of breath: With patchy infiltrate in the bases in both lung field with the possibly bilateral pneumonia, elevated white blood cell with left shift chest x-ray also shows slight fluid overload . Post par acentesis continue to watch for any worsening symptoms afterward. Patient will be giving Levaquin 750 daily for the next 5 days see the progress the next 24 hours. 2 severe ascites and fluid overload patient ended up going for paracentesis with radiology with good result so far continue to watch for any worsening symptoms. 3 intractable nausea vomiting: With worsening abdominal discomfort and distention continue Zofran continue pantoprazole watch for any worsening symptoms. 4. Acute kidney injury. On nephrology consult. Patient is status post IV fluids. Continue to monitor closely. Avoid nephrotoxic agents. 5. History of bilateral lung transplant in 2008 at [facility] with underlying COPD and pulmonary fibrosis. Continue Prograf at home dosing. Prograf level ordered in the morning. 6. Hypogammaglobulinemia status post IVIG, stable. 7. Diabetes mellitus type 2. Patient will be resumed on Levemir 20 units daily and NovoLog scale. 8. Hypertension. Continue Norvasc 10 mg daily, Toprol-XL 100 mg daily. 9. Hyperlipidemia. Continue atorvastatin 10 mg daily. 10. Benign prostatic hypertrophy. Continue Flomax 0.4 mg daily. 11. Chronic gout. Continue allopurinol 100 mg daily. 12. Chronic kidney disease stage III. 13. Remote history of tobacco use and dependence. 14. Remote history of alcohol abuse. 15. Recurrent depression. Continue Zoloft 50 mg daily. 16. Chronic thrombocytopenia. 17. Gastroesophageal reflux disease and GI prophylaxis. Omeprazole. 18. DVT prophylaxis. Heparin subcu Patient will be admitted to the hospital for a minimum of 2 night stay. Past Medical History Past Medical History: COPD, Diabetes Mellitus, GERD/Reflux, Osteoarthritis (OA), Pneumonia, Prostate Disorder, Renal Disease, Respiratory Disorder Additional Past Medical History / Comment(s): recent admission with pneumonia, History of COPD and pulmonary fibrosis. The patient underwent bilateral lung transplantation and 2008. He has diabetes, chronic arthritis with back pain, degenerative disc disease, chronic stage III kidney disease, chronic hypogammaglobulinemia and the patient is receiving IVIG treatment on outpatient basis and the last treatment was in June 2019, left lung pneumonia in July 2019 requiring hospitalization, cirrhosis of the liver History of Any Multi-Drug Resistant Organisms: None Reported Past Surgical History: Heart Catheterization, Hernia Repair Additional Past Surgical History / Comment(s): RT & LT CATARACT REMOVED/COLONOSCOPY/BILATERAL LUNG TRANSPLANT 20082013 HERNIA REPAIR UMBILICAL, LEFT INGUINAL AND FEMEROL. TURP - 2015, paracentesis 08/06/20 Past Anesthesia/Blood Transfusion Reactions: No Reported Reaction Past Psychological History: Anxiety, Depression Smoking Status: Former smoker Past Alcohol Use History: None Reported Past Drug Use History: None Reported - Past Family History Mother Family Medical History: No Reported History Additional Family Medical History / Comment(s): Mother at age 73 from asthma or COPD. Father Additional Family Medical History / Comment(s): Father at age 68 from asthma. Brother(s) Additional Family Medical History / Comment(s): Patient states he has 6 brothers and 5 sisters and is not sure of their medical history. Some have passed. Patient has one daughter with no major medical problems. Medications and Allergies Home Medications Medication Instructions Recorded Confirmed Type Alendronate Sodium [Fosamax] 70 mg PO WE 11/06/13 09/30/20 History Ergocalciferol (Vitamin D2) 50,000 units PO Q15D 11/06/13 09/30/20 History [Drisdol] Fludrocortisone [Florinef] 0.1 mg PO DAILY 11/06/13 09/30/20 History Metoprolol Succinate (ER) [Toprol 100 mg PO DAILY 11/06/13 09/30/20 History XL] Tacrolimus [Prograf] 2 mg PO BID 11/06/13 09/30/20 History Multivitamins, Thera [Multivitamin 1 tab PO DAILY 07/23/16 09/30/20 History (formulary)] Ferrous Sulfate [Iron (65 MG 325 mg PO DAILY 09/29/16 09/30/20 History Elemental)] Allopurinol [Zyloprim] 100 mg PO DAILY 05/06/17 09/30/20 History Metoclopramide [Reglan] 10 mg PO DAILY 05/06/17 09/30/20 History amLODIPine [Norvasc] 10 mg PO DAILY 05/06/17 09/30/20 History Omeprazole [PriLOSEC] 40 mg PO BID 03/02/18 09/30/20 History Sertraline [Zoloft] 50 mg PO DAILY 03/02/18 09/30/20 History Tacrolimus [Prograf] 0.5 mg PO BID 08/16/19 09/30/20 History Tamsulosin HCl [Flomax] 0.4 mg PO DAILY 08/16/19 09/30/20 History predniSONE 5 mg PO DAILY #0 08/21/19 09/30/20 Rx Atorvastatin [Lipitor] 10 mg PO DAILY 05/30/20 09/30/20 History Sodium Bicarbonate 650 mg PO BID 08/05/20 09/30/20 History HYDROcodone/APAP 5-325MG [[place] 1 tab PO TID PRN 08/15/20 09/30/20 History 5-325] Insulin Detemir [Levemir Flextouch] 20 unit SQ HS 09/05/20 09/30/20 History Azithromycin [Zithromax] 250 mg PO MOWEFR 09/30/20 09/30/20 History Furosemide [Lasix] 40 mg PO Q48H 09/30/20 09/30/20 History Allergies Allergy/AdvReac Type Severity Reaction Status Date / Time clarithromycin [From Biaxin] AdvReac instructed Verified 09/30/20 16:11 not to take r/t lung transplant ibuprofen [From Motrin] AdvReac Abdominal Verified 09/30/20 16:11 Pain Physical Exam Vitals: Vital Signs Temp Pulse Pulse Resp BP BP Pulse Ox 09/30/20 16:16 75 22 121/66 100 09/30/20 16:05 75 22 101/47 96 09/30/20 15:44 72 24 96/48 99 09/30/20 15:25 98.5 F 75 22 99/48 97 09/30/20 14:55 73 20 120/59 98 09/30/20 14:40 74 20 100/59 97 09/30/20 14:25 72 18 110/56 98 09/30/20 14:10 76 16 106/58 99 09/30/20 13:55 100.4 F H 75 16 111/58 99 09/30/20 11:24 99.6 F 101 H 26 H 130/70 98 Intake and Output 09/30/20 09/30/20 09/30/20 06:59 14:59 22:59 Other: Weight 70.307 kg Results CBC & Chem 7: 09/30/20 11:59 09/30/20 11:59 Labs: Abnormal Lab Results - Last 24 Hours (Table) 09/30/20 09/30/20 Range/Units 11:59 11:59 WBC 13.7 H (3.8-10.6) k/uL RBC 3.81 L (4.30-5.90) m/uL Hgb 12.3 L (13.0-17.5) gm/dL Hct 37.0 L (39.0-53.0) % Plt Count 90 L (150-450) k/uL Neutrophils # 12.0 H (1.3-7.7) k/uL Lymphocytes # 0.5 L (1.0-4.8) k/uL Monocytes # 1.1 H (0-1.0) k/uL Sodium 135 L (137-145) mmol/L BUN 47 H (9-20) mg/dL Creatinine 1.90 H (0.66-1.25) mg/dL Glucose 165 H (74-99) mg/dL Alkaline Phosphatase 169 H (38-126) U/L Total Protein 5.8 L (6.3-8.2) g/dL Albumin 3.2 L (3.5-5.0) g/dL
[2020-09-30 17:55] LABS: Appearance,BF Clear; Nucleated Cells, Body Fluid 93 /uL; RBC, Body Fluid 241 /uL
[2020-09-30 17:57] LABS: Mononuclear WBC,Body Fluid 65 %; Polynuclear WBC,Body Fluid 35 %; Total Cells Counted,Body Fluid 100
[2020-09-30] MEDS ORDERED: INSULIN DETEMIR (LEVEMIR) 100 UNIT/ML SYR SQ SCH (21:00)
[2020-09-30 23:13] LABS: Glucose,Whole Blood 213 mg/dL (75-99)
[2020-09-30] MEDS: HYDROcodone/APAP 5-325MG 1 EACH TAB PO PRN (23:23)
[2020-09-30] MEDS: PANTOPRAZOLE 40 MG TABLET PO SCH (23:23)
[2020-09-30] MEDS: TACROLIMUS 0.5 MG CAP PO SCH (23:24)
[2020-09-30] MEDS: SODIUM BICARBONATE TAB 650 MG TAB PO SCH (23:24)
[2020-09-30] MEDS: TACROLIMUS 1 MG CAP PO SCH (23:25)
[2020-09-30] MEDS: HEPARIN SODIUM,PORCINE/PF 5,000 UNIT/0.5 ML SYRINGE SQ SCH (23:25)
[2020-09-30] MEDS: INSULIN ASPART (NovoLOG) 100 UNIT/ML VIAL SQ SCH (23:26)
[2020-09-30] MEDS: INSULIN DETEMIR (LEVEMIR) 100 UNIT/ML SYR SQ SCH (23:29)
[2020-10-01 00:41] LABS: Glucose, BF Source Paracentesis Fluid; Glucose, Body Fluid 150 mg/dL
[2020-10-01] MEDS: INSULIN ASPART (NovoLOG) 100 UNIT/ML VIAL SQ SCH ×6 (08:49→22:26)
[2020-10-01 08:53] LABS: Glucose,Whole Blood 66 mg/dL (75-99)
[2020-10-01] MEDS ORDERED: amLODIPine 10 MG TAB PO SCH (09:00)
[2020-10-01] MEDS ORDERED: LEVOFLOXACIN 750 MG TAB PO SCH (09:00)
[2020-10-01] MEDS: ATORVASTATIN 10 MG TAB PO SCH (09:07)
[2020-10-01] MEDS: MULTIVITAMINS, THERA 1 EACH TAB PO SCH (09:07)
[2020-10-01] MEDS: FLUDROCORTISONE 0.1 MG TAB PO SCH (09:07)
[2020-10-01] MEDS: HEPARIN SODIUM,PORCINE/PF 5,000 UNIT/0.5 ML SYRINGE SQ SCH ×2 (09:07→22:12)
[2020-10-01] MEDS: TAMSULOSIN 0.4 MG CAP.ER.24H PO SCH (09:07)
[2020-10-01] MEDS: PANTOPRAZOLE 40 MG TABLET PO SCH ×2 (09:07→22:27)
[2020-10-01] MEDS: allopurinoL 100 MG TAB PO SCH (09:07)
[2020-10-01] MEDS: FERROUS SULFATE 325 MG TAB PO SCH (09:07)
[2020-10-01 09:13] LABS: Glucose,Whole Blood 86 mg/dL (75-99)
--- NOTE | 2020-10-01 09:28 | XR ---
EXAMINATION TYPE: XR chest 1V DATE OF EXAM: 10/01/2020 HISTORY: Shortness of breath. COMPARISON: 09/30/2020 TECHNIQUE: Single view of the chest is submitted. FINDINGS: Demonstrated are scattered senescent parenchymal change. Scattered airspace and interstitial infiltrates noted. The heart is stable. Hilar and mediastinal structures are within normal limits. Degenerative changes are seen of the dorsal spine. IMPRESSION: 1. Scattered airspace and interstitial infiltrates noted.
[2020-10-01] MEDS: SERTRALINE 50 MG TAB PO SCH (09:50)
[2020-10-01] MEDS: METOPROLOL SUCCINATE (ER) 100 MG TAB.ER.24H PO SCH (09:50)
[2020-10-01] MEDS: SODIUM BICARBONATE TAB 650 MG TAB PO SCH ×2 (09:50→14:43)
[2020-10-01] MEDS: METOCLOPRAMIDE 10 MG TAB PO SCH (09:50)
[2020-10-01] MEDS: TACROLIMUS 0.5 MG CAP PO SCH ×2 (09:50→22:11)
[2020-10-01] MEDS: predniSONE 5 MG TAB PO SCH (09:50)
--- NOTE | 2020-10-01 10:05 | P.DS ---
Providers Date of admission: 09/30/20 15:24 Expected date of discharge: 10/01/20 Attending physician: Reinaldo Gerard Consults: 09/30/20 17:24 Consult Physician Routine Consulting Provider: Roberto Suarez Consult Reason/Comments: SOB, Lung Transplant Do you want consulting provider notified?: Yes Consult Physician Routine Consulting Provider: Carmen Vargas Consult Reason/Comments: Acute Kidney injury Do you want consulting provider notified?: Yes Primary care physician: Louie Alaniz [facility] Course: HISTORY OF PRESENT ILLNESS This is a 69-year-old male patient of Dr. Louie Alaniz with past medical history of bilateral lung transplant in 2008 at [facility] with underlying COPD, pulmonary fibrosis, hypogammaglobulinemia on IVIG replacement, chronic kidney disease stage III, diabetes mellitus type 2, benign prostatic hypertrophy, generalized osteoarthritis of the spine and degenerative disc disease, gastroesophageal reflux disease, hypertension recurrent depression. Patient had a recent hospitalization at [facility] and was treated for worsening ascites fluid overload along with intractable nausea vomiting and significant shortness of breath had paracentesis and at the time was having lactic acidosis with worsening metabolic problem. Patient was treated and was discharged within 48 hours and has done well. Patient presented to demurs department at [facility] today complaining of worsening dyspnea and shortness of breath intractable nausea and vomiting and distended abdomen with worsening pain and discomfort. Was seen and evaluated had elevated white blood cell at 13,000 left shifted chest x-ray showed slightly fluid overloaded by basilar infiltrate consistent with pneumonia. Patient was giving 1 g of Rocephin along with azithromycin paracentesis was done by radiology had made the symptoms slightly but better. Patient will be admitted to the hospital for the next day or 2 for IV antibiotic management along with O2 and updraft treatment. Also of my surprise patient found to be in acute kidney injury with chronic kidney disease his creatinine jumped quite bed since last admission. Patient will be seen nephrology continue hydration repeat BUN/creatinine next 24 hours. 10/01: Patient remains in the emergency center waiting for a MedSurg room. He has been transitioned into a hospital bed. Patient has been afebrile since yesterday afternoon. Heart rate 69, blood pressure 123/74, pulse ox 94% on 3 L nasal cannula. He is status post 2 bags of albumin. IV Levaquin has been transitioned to oral. Paracentesis fluid culture and blood culture in process. Repeat blood work this morning reveals Repeat chest x-ray reveals REVIEW OF SYSTEMS Constitutional: No fever, no chills, no night sweats. No weight change. No weakness, fatigue or lethargy. No daytime sleepiness. EENT: No headache. No blurred vision or double vision, no loss of vision. No loss of Hearing, no ringing in the ears, no dizziness. No nasal drainage or congestion. No epistaxis. No sore throat. Lungs: No shortness of breath, cough, no sputum production. No wheezing. Cardiovascular: No chest pain, no lower extremity edema. No palpitations. No paroxysmal nocturnal dyspnea. No orthopnea. No lightheadedness or dizziness. No syncopal episodes. Abdominal: No abdominal pain. No nausea, vomiting. No diarrhea. No constipation. No bloody or tarry stools.. No loss of appetite. Reported ascites. Genitourinary: No dysuria, increased frequency, urgency. No urinary retention. Musculoskeletal: No myalgias. No muscle weakness, no gait dysfunction, no frequent falls. No back pain. No neck pain. Integumentary: No wounds, no lesions. No rash or pruritus. No unusual bruising. No change in hair or nails. Neurologic: No aphasia. No facial droop. No change in mentation. No head injury. No headache. No paralysis. No paresthesia. Psychiatric: No depression. No anxiety. No mood swings. Endocrine: Reports abnormal blood sugars. No weight change. PHYSICAL EXAMINATION Gen: This is a 69-year-old male. Patient is resting in bed and appears to be comfortable and in no acute distress. HEENT: Head is atraumatic, normocephalic. Pupils equal, round. Sclerae is anicteric. NECK: Supple. No JVD. No lymphadenopathy. No thyromegaly. LUNGS: Decreased breath some bilateral fine rhonchi positive mild crackles with mild expiratory wheezes. HEART: Regular rate and rhythm. No murmur. ABDOMEN: Soft positive bowel sounds slightly distended abdomen with sign of paracentesis was drain with no bleeding. EXTREMITIES: No pedal edema. No calf tenderness. NEUROLOGICAL: Patient is awake, alert and oriented x3. Cranial nerves 2 through 12 are grossly intact. ASSESSMENT AND PLAN 1. Severe dyspnea and shortness of breath: With patchy infiltrate in the bases in both lung field with the possibly bilateral pneumonia, elevated white blood cell with left shift chest x-ray also shows slight fluid overload . Post paracentesis continue to watch for any worsening symptoms afterward. Patient will be giving Levaquin 750 daily for the next 5 days see the progress the next 24 hours. 2. Severe ascites and fluid overload patient ended up going for paracentesis with radiology with good result so far continue to watch for any worsening symptoms. 3. Intractable nausea vomiting: With worsening abdominal discomfort and distention continue Zofran continue pantoprazole watch for any worsening symptoms. 4. Acute kidney injury. On nephrology consult. Patient is status post IV fluids. Continue to monitor closely. Avoid nephrotoxic agents. 5. History of bilateral lung transplant in 2008 at [facility] with underlying COPD and pulmonary fibrosis. Continue Prograf at home dosing. Prograf level ordered in the morning. 6. Hypogammaglobulinemia status post IVIG, stable. 7. Diabetes mellitus type 2. Patient will be resumed on Levemir 20 units daily and NovoLog scale. 8. Hypertension. Continue Norvasc 10 mg daily, Toprol-XL 100 mg daily. 9. Hyperlipidemia. Continue atorvastatin 10 mg daily. 10. Benign prostatic hypertrophy. Continue Flomax 0.4 mg daily. 11. Chronic gout. Continue allopurinol 100 mg daily. 12. Chronic kidney disease stage III. 13. Remote history of tobacco use and dependence. 14. Remote history of alcohol abuse. 15. Recurrent depression. Continue Zoloft 50 mg daily. 16. Chronic thrombocytopenia. 17. Gastroesophageal reflux disease and GI prophylaxis. Omeprazole. 18. DVT prophylaxis. Heparin subcu DISCHARGE PLAN TBD Impression and plan of care have been directed as dictated by the signing physician. Tiera Elder nurse practitioner acting as scribe for signing physician. Patient Condition at Discharge: Good Plan - Discharge Summary New Discharge Prescriptions: New Levofloxacin [Levaquin] 750 mg PO DAILY #5 tab Continue Metoprolol Succinate (ER) [Toprol XL] 100 mg PO DAILY Tacrolimus [Prograf] 2 mg PO BID Fludrocortisone [Florinef] 0.1 mg PO DAILY Ergocalciferol (Vitamin D2) [Drisdol] 50,000 units PO Q15D Alendronate Sodium [Fosamax] 70 mg PO WE Multivitamins, Thera [Multivitamin (formulary)] 1 tab PO DAILY Ferrous Sulfate [Iron (65 MG Elemental)] 325 mg PO DAILY Allopurinol [Zyloprim] 100 mg PO DAILY amLODIPine [Norvasc] 10 mg PO DAILY Metoclopramide [Reglan] 10 mg PO DAILY Sertraline [Zoloft] 50 mg PO DAILY Omeprazole [PriLOSEC] 40 mg PO BID Tacrolimus [Prograf] 0.5 mg PO BID Tamsulosin HCl [Flomax] 0.4 mg PO DAILY predniSONE 5 mg PO DAILY #0 Atorvastatin [Lipitor] 10 mg PO DAILY Sodium Bicarbonate 650 mg PO BID HYDROcodone/APAP 5-325MG [[place] 5-325] 1 tab PO TID PRN PRN Reason: Pain Insulin Detemir [Levemir Flextouch] 20 unit SQ HS Azithromycin [Zithromax] 250 mg PO MOWEFR Furosemide [Lasix] 40 mg PO Q48H Discharge Medication List Alendronate Sodium [Fosamax] 70 mg PO WE 11/06/13 [History] Ergocalciferol (Vitamin D2) [Drisdol] 50,000 units PO Q15D 11/06/13 [History] Fludrocortisone [Florinef] 0.1 mg PO DAILY 11/06/13 [History] Metoprolol Succinate (ER) [Toprol XL] 100 mg PO DAILY 11/06/13 [History] Tacrolimus [Prograf] 2 mg PO BID 11/06/13 [History] Multivitamins, Thera [Multivitamin (formulary)] 1 tab PO DAILY 07/23/16 [History] Ferrous Sulfate [Iron (65 MG Elemental)] 325 mg PO DAILY 09/29/16 [History] Allopurinol [Zyloprim] 100 mg PO DAILY 05/06/17 [History] Metoclopramide [Reglan] 10 mg PO DAILY 05/06/17 [History] amLODIPine [Norvasc] 10 mg PO DAILY 05/06/17 [History] Omeprazole [PriLOSEC] 40 mg PO BID 03/02/18 [History] Sertraline [Zoloft] 50 mg PO DAILY 03/02/18 [History] Tacrolimus [Prograf] 0.5 mg PO BID 08/16/19 [History] Tamsulosin HCl [Flomax] 0.4 mg PO DAILY 08/16/19 [History] predniSONE 5 mg PO DAILY #0 08/21/19 [Rx] Atorvastatin [Lipitor] 10 mg PO DAILY 05/30/20 [History] Sodium Bicarbonate 650 mg PO BID 08/05/20 [History] HYDROcodone/APAP 5-325MG [[place] 5-325] 1 tab PO TID PRN 08/15/20 [History] Insulin Detemir [Levemir Flextouch] 20 unit SQ HS 09/05/20 [History] Azithromycin [Zithromax] 250 mg PO MOWEFR 09/30/20 [History] Furosemide [Lasix] 40 mg PO Q48H 09/30/20 [History] Levofloxacin [Levaquin] 750 mg PO DAILY #5 tab 10/01/20 [Rx] Follow up Appointment(s)/Referral(s): Louie Alaniz MD [Primary Care Provider] - 1 Week Discharge Disposition: HOME SELF-CARE
[2020-10-01] MEDS: TACROLIMUS 1 MG CAP PO SCH ×2 (10:10→22:11)
[2020-10-01 10:24] LABS: HCT 30.3 % (39.6-50.0); HGB 9.5 g/dL (13.0-17.0); MCHC 31.4 g/dL (32.0-37.0); Mean Platelet Volume 13.1 fL (9.5-12.2); Platelet Count 65 X 10*3/uL (140-440); RBC 3.06 X 10*6/uL (4.40-5.60); RDW 14.6 % (11.5-14.5); WBC 10.12 X 10*3/uL (4.50-10.00)
[2020-10-01 10:35] LABS: African American GFR (CKD) 37.8 (60.0-200.0); Albumin 3.1 g/dL (3.80-4.90); Albumin/Globulin Ratio 2.07 (1.60-3.17); Anion Gap 6.3 mmol/L (4.00-12.00); Calcium 8.3 mg/dL (8.7-10.3); Carbon Dioxide 27.7 mmol/L (21.6-31.8); Globulin 1.5 g/dL (1.6-3.3); Non-African American GFR(CKD) 32.6 (60.0-200.0); Potassium 4.8 mmol/L (3.5-5.5); Total Bilirubin 0.5 mg/dL (0.2-1.2); Total Protein 4.6 g/dL (6.2-8.2)
[2020-10-01] MEDS ORDERED: VANCOMYCIN IV PER PHARMACY 1 EACH MISC MISCELLANE PRN (10:50)
[2020-10-01] MEDS: VANCOMYCIN 1,250 MG in SODIUM CHLORIDE 0.9% 250 ML IVPB SCH (11:15)
--- NOTE | 2020-10-01 12:04 | P.PN ---
Subjective Progress Note Date: 10/01/20 HISTORY OF PRESENT ILLNESS This is a 69-year-old male patient of Dr. Louie Alaniz with past medical history of bilateral lung transplant in 2008 at [facility] with under lying COPD, pulmonary fibrosis, hypogammaglobulinemia on IVIG replacement, chronic kidney disease stage III, diabetes mellitus type 2, benign prostatic hypertrophy, generalized osteoarthritis of the spine and degenerative disc disease, gastroesophageal reflux disease, hypertension recurrent depression. Patient had a recent hospitalization at [facility] and was treated for worsening ascites fluid overload along with intractable nausea vomiting and significant shortness of breath had paracentesis and at the time was having lactic acidosis with worsening metabolic problem. Patient was treated and was discharged within 48 hours and has done well. Patient presented to demurs department at [facility] today complaining of worsening dyspnea and shortness of breath intractable nausea and vomiting and distended abdomen with worsening pain and discomfort. Was seen and evaluated had elevated white blood cell at 13,000 left shifted chest x-ray showed slightly fluid overloaded by basilar infiltrate consistent with pneumonia. Patient was giving 1 g of Rocephin along with azithromycin paracentesis was done by radiology had made the symptoms slightly but better. Patient will be admitted to the hospital for the next day or 2 for IV antibiotic management along with O2 and updraft treatment. Also of my surprise patient found to be in acute kidney injury with chronic k idney disease his creatinine jumped quite bed since last admission. Patient will be seen nephrology continue hydration repeat BUN/creatinine next 24 hours. 10/01: Patient remains in the emergency center waiting for a MedSurg room. He has been transitioned into a hospital bed. Patient has been afebrile since yesterday afternoon. Heart rate 69, blood pressure 123/74, pulse ox 94% on 3 L nasal cannula. He is status post 2 bags of albumin. IV Levaquin has been transitioned to oral. Paracentesis fluid culture and blood culture in process. Repeat blood work this morning reveals WBC 10.1, hemoglobin 9.5, platelet count 65. Electrolytes are within normal limits. BUN 50 and creatinine 2. Blood sugars running between 66 and 213. Blood culture gram-positive cocci in clusters. Repeat chest x-ray reveals scattered airspace and interstitial infiltrates noted. Patient was prepared for discharge as he was feeling well. No fever or chills. Breathing was improved. He is scheduled for IVIG at the [facility] today. He had a total of 5.4 L of fluid removed from his abdomen during paracentesis. Discharge was held due to positive blood cultures, consult added for Dr. Villa, vancomycin 1. Patient is scheduled to see pulmonary medicine and nephrology today. REVIEW OF SYSTEMS Constitutional: No fever, no chills, no night sweats. No weight change. No weakness, fatigue or lethargy. No daytime sleepiness. EENT: No headache. No blurred vision or double vision, no loss of vision. No loss of Hearing, no ringing in the ears, no dizziness. No nasal drainage or congestion. No epistaxis. No sore throat. Lungs: No shortness of breath, cough, no sputum production. No wheezing. Cardiovascular: No chest pain, no lower extremity edema. No palpitations. No paroxysmal nocturnal dyspnea. No orthopnea. No lightheadedness or dizziness. No syncopal episodes. Abdominal: No abdominal pain. No nausea, vomiting. No diarrhea. No constipation. No bloody or tarry stools.. No loss of appetite. Reported ascites. Genitourinary: No dysuria, increased frequency, urgency. No urinary retention. Musculoskeletal: No myalgias. No muscle weakness, no gait dysfunction, no frequent falls. No back pain. No neck pain. Integumentary: No wounds, no lesions. No rash or pruritus. No unusual bruising. No change in hair or nails. Neurologic: No aphasia. No facial droop. No change in mentation. No head injury. No headache. No paralysis. No paresthesia. Psychiatric: No depression. No anxiety. No mood swings. Endocrine: Reports abnormal blood sugars. No weight change. PHYSICAL EXAMINATION Gen: This is a 69-year-old male. Patient is resting in bed and appears to be comfortable and in no acute distress. HEENT: Head is atraumatic, normocephalic. Pupils equal, round. Sclerae is anicteric. NECK: Supple. No JVD. No lymphadenopathy. No thyromegaly. LUNGS: Decreased breath some bilateral fine rhonchi positive mild crackles with mild expiratory wheezes. HEART: Regular rate and rhythm. No murmur. ABDOMEN: Soft positive bowel sounds minimal distended abdomen with sign of paracentesis was drained with no bleeding. EXTREMITIES: No pedal edema. No calf tenderness. NEUROLOGICAL: Patient is awake, alert and oriented x3. Cranial nerves 2 through 12 are grossly intact. ASSESSMENT AND PLAN 1. Severe dyspnea and shortness of breath: With patchy infiltrate in the bases in both lung field with the possibly bilateral pneumonia, elevated white blood cell with left shift chest x-ray also shows slight fluid overload . Post paracentesis continue to watch for any worsening symptoms afterward. Patient will be giving Levaquin 750 daily. 2. Severe ascites and fluid overload patient ended up going for paracentesis with radiology with good result so far continue to watch for any worsening symptoms. 3. Intractable nausea vomiting: With worsening abdominal discomfort and distention continue Zofran continue pantoprazole watch for any worsening symptoms. 4. Acute kidney injury. On nephrology consult. Patient is status post IV fluids. Continue to monitor closely. Avoid nephrotoxic agents. 5. Possible bacteremia. Consult with Dr. Benz. Vancomycin. 6. History of bilateral lung transplant in 2008 at [facility] with underlying COPD and pulmonary fibrosis. Continue Prograf at home dosing. Prograf level ordered in the morning. 7. Hypogammaglobulinemia status post IVIG, stable. 8. Diabetes mellitus type 2. Patient will be resumed on Levemir 20 units daily and NovoLog scale. 9. Hypertension. Continue Norvasc 10 mg daily, Toprol-XL 100 mg daily. 10. Hyperlipidemia. Continue atorvastatin 10 mg daily. 11. Benign prostatic hypertrophy. Continue Flomax 0.4 mg daily. 12. Chronic gout. Continue allopurinol 100 mg daily. 13. Chronic kidney disease stage III. 14. Remote history of tobacco use and dependence. 15. Remote history of alcohol abuse. 16. Recurrent depression. Continue Zoloft 50 mg daily. 17. Chronic thrombocytopenia. 18. Gastroesophageal reflux disease and GI prophylaxis. Omeprazole. 19. DVT prophylaxis. Heparin subcu DISCHARGE PLAN Home Impression and plan of care have been directed as dictated by the signing physician. Tiera Elder nurse practitioner acting as scribe for signing wil walker. Objective - Vital Signs Vital signs: Vital Signs Temp 98.6 F 10/01/20 03:44 Pulse 69 10/01/20 03:44 Resp 18 10/01/20 03:44 BP 123/74 10/01/20 03:44 Pulse Ox 94 L 10/01/20 03:44 Intake & Output 09/30/20 10/01/20 10/01/20 18:59 06:59 18:59 Weight 70.307 kg - Labs CBC & Chem 7: 10/01/20 04:07 10/01/20 04:07 Labs: Abnormal Lab Results - Last 24 Hours (Table) 09/30/20 09/30/20 09/30/20 Range/Units 11:59 11:59 23:12 WBC 13.7 H (3.8-10.6) k/uL RBC 3.81 L (4.30-5.90) m/uL Hgb 12.3 L (13.0-17.5) gm/dL Hct 37.0 L (39.0-53.0) % Plt Count 90 L (150-450) k/uL Neutrophils # 12.0 H (1.3-7.7) k/uL Lymphocytes # 0.5 L (1.0-4.8) k/uL Monocytes # 1.1 H (0-1.0) k/uL Sodium 135 L (137-145) mmol/L BUN 47 H (9-20) mg/dL Creatinine 1.90 H (0.66-1.25) mg/dL Glucose 165 H (74-99) mg/dL POC Glucose (mg/dL) 213 H (75-99) mg/dL Alkaline Phosphatase 169 H (38-126) U/L Total Protein 5.8 L (6.3-8.2) g/dL Albumin 3.2 L (3.5-5.0) g/dL Microbiology - Last 24 Hours (Table) 09/30/20 14:10 Anaerobic Culture - Preliminary Paracentesis Fluid 09/30/20 14:10 Body Fluid Culture - Preliminary Paracentesis Fluid
[2020-10-01 12:15] LABS: Glucose,Whole Blood 102 mg/dL (75-99)
[2020-10-01] MEDS: HYDROcodone/APAP 5-325MG 1 EACH TAB PO PRN ×2 (12:30→18:11)
--- NOTE | 2020-10-01 13:56 | P.CNPUL ---
History of Present Illness Consult date: 10/01/20 Requesting physician: Reinaldo Gerard Reason for consult: dyspnea, cough, chest pain, pneumonia Chief complaint: Shortness of breath, cough, chest congestion, phlegm production. History of present illness: 69-year-old male, with a history of cirrhosis, and double long transplant, who presents to the emergency department with complaints of shortness of breath. He apparently came to the emergency department because his girlfriend told him that he had a fever. He has significant abdominal distention, and recently had her paracentesis abdominis performed on September 30, where 5.4 L of fluid was removed. He also complained of nausea, cough, and he was coughing up yellow phlegm. He states his chest hurts when he coughs. He states, he was told that he had pneumonia in the emergency department. He tested negative for coronavirus. White count 10.12, hemoglobin 9.5, hematocrit 30.3, and platelet count 65,000. Sodium potassium chloride CO2 all normal. Anion gap 6, BUN 50, with a creatinine of 2.0. Chest x-ray did reveal bilateral patchy infiltrates. Repeat chest x-ray was similar to the initial chest x-ray. Review of Systems REVIEW OF SYSTEMS: CONSTITUTIONAL: Possible fever. NEUROLOGIC: [ Negative.] HEENT: [ Negative.] CARDIAC: Chest pain. PULMONARY: Shortness of breath, cough, phlegm production. GI: Abdominal distention and ascites. : [Negative.] RHEUMATOLOGIC: [ Negative.] IMMUNOLOGIC: [ Negative.] ENDOCRINE: [Negative. ] DERMATOLOGIC: [Negative.] Past Medical History Past Medical History: COPD, Diabetes Mellitus, GERD/Reflux, GI Bleed, Hyperlipidemia, Hypertension, Liver Disease, Osteoarthritis (OA), Pneumonia, Prostate Disorder, Renal Disease, Respiratory Disorder Additional Past Medical History / Comment(s): Pt recently admitted to [facility] on 09/05/20 with hyperkalemia/acute kidney injury/ascities/transaminitis. Other hx; 2009 bilateral lung transplants, pt has had pne since transplant and prior to transplant had copd/pneumonia/pulmonary fibrosis/bronchitis/past chronic respiratory failure, chronic abdominal pain, liver cirrhosis, ascities with frequent paracentesis, lower GI bleed, diverticular disease, IDDM type II neuropathy bilateral hands/feet, CKD stage III, hypogammaglobulinemia with IVIG infusions, gout, diverticular disease, benign colon polyp, R abdominal hernia, BPH with surgery, chronic back pain, DDD History of Any Multi-Drug Resistant Organisms: None Reported Past Surgical History: Heart Catheterization, Hernia Repair Additional Past Surgical History / Comment(s): 2009 bilateral lung transplants at [facility], umbilical/bilateral inguinal hernia repairs and a femoral hernia repair, TURP, colonoscopy with benign polypectomy, bilateral cataract removals/lens implants Past Anesthesia/Blood Transfusion Reactions: No Reported Reaction Additional Past Anesthesia/Blood Transfusion Reaction / Comment(s): Pt has clausterphobia. Smoking Status: Former smoker - Past Family History Mother Family Medical History: Asthma, COPD Additional Family Medical History / Comment(s): Mother at age 73 from asthma or COPD. Father Family Medical History: Asthma, Pneumonia Additional Family Medical History / Comment(s): Father at age 68 from asthma. Brother(s) Additional Family Medical History / Comment(s): Patient states he has 6 brothers and 5 sisters and is not sure of their medical history. Some have passed. Patient has one daughter with no major medical problems. Medications and Allergies Home Medications Medication Instructions Recorded Confirmed Type Alendronate Sodium [Fosamax] 70 mg PO WE 11/06/13 09/30/20 History Ergocalciferol (Vitamin D2) 50,000 units PO Q15D 11/06/13 09/30/20 History [Drisdol] Fludrocortisone [Florinef] 0.1 mg PO DAILY 11/06/13 09/30/20 History Metoprolol Succinate (ER) [Toprol 100 mg PO DAILY 11/06/13 09/30/20 History XL] Tacrolimus [Prograf] 2 mg PO BID 11/06/13 09/30/20 History Multivitamins, Thera [Multivitamin 1 tab PO DAILY 07/23/16 09/30/20 History (formulary)] Ferrous Sulfate [Iron (65 MG 325 mg PO DAILY 09/29/16 09/30/20 History Elemental)] Allopurinol [Zyloprim] 100 mg PO DAILY 05/06/17 09/30/20 History Metoclopramide [Reglan] 10 mg PO DAILY 05/06/17 09/30/20 History amLODIPine [Norvasc] 10 mg PO DAILY 05/06/17 09/30/20 History Omeprazole [PriLOSEC] 40 mg PO BID 03/02/18 09/30/20 History Sertraline [Zoloft] 50 mg PO DAILY 03/02/18 09/30/20 History Tacrolimus [Prograf] 0.5 mg PO BID 08/16/19 09/30/20 History Tamsulosin HCl [Flomax] 0.4 mg PO DAILY 08/16/19 09/30/20 History predniSONE 5 mg PO DAILY #0 08/21/19 09/30/20 Rx Atorvastatin [Lipitor] 10 mg PO DAILY 05/30/20 09/30/20 History Sodium Bicarbonate 650 mg PO BID 08/05/20 09/30/20 History HYDROcodone/APAP 5-325MG [Hadley 1 tab PO TID PRN 08/15/20 09/30/20 History 5-325] Insulin Detemir [Levemir Flextouch] 20 unit SQ HS 09/05/20 09/30/20 History Azithromycin [Zithromax] 250 mg PO MOWEFR 09/30/20 09/30/20 History Furosemide [Lasix] 40 mg PO Q48H 09/30/20 09/30/20 History Levofloxacin [Levaquin] 750 mg PO DAILY #5 tab 10/01/20 Rx Allergies Allergy/AdvReac Type Severity Reaction Status Date / Time clarithromycin [From Biaxin] AdvReac instructed Verified 09/30/20 16:11 not to take r/t lung transplant ibuprofen [From Motrin] AdvReac Abdominal Verified 09/30/20 16:11 Pain Physical Exam Osteopathic Statement: *. No significant issues noted on an osteopathic structural exam other than those noted in the History and Physical/Consult. Vitals: Vital Signs Temp Pulse Pulse Resp BP BP Pulse Ox 10/01/20 10:17 77 20 94 L 10/01/20 08:15 97.8 F 65 19 128/63 93 L 10/01/20 03:44 98.6 F 69 18 123/74 94 L 09/30/20 17:19 99 F 84 20 111/57 99 09/30/20 16:16 75 22 121/66 100 09/30/20 16:05 75 22 101/47 96 09/30/20 15:44 72 24 96/48 99 09/30/20 15:25 98.5 F 75 22 99/48 97 04/05/21 14:55 73 20 120/59 98 09/30/20 14:40 74 20 100/59 97 09/30/20 14:25 72 18 110/56 98 09/30/20 14:10 76 16 106/58 99 09/30/20 13:55 100.4 F H 75 16 111/58 99 Intake and Output 09/30/20 10/01/20 10/01/20 22:59 06:59 14:59 Intake Total 240 Balance 240 Intake: Oral 240 Other: Weight 70.307 kg No acute distress, oriented 3. Room air saturations 93-94%. No audible wheezing, use of accessory muscles or conversational dyspnea. HEENT examination is grossly unremarkable. Neck supple. Full range of motion. No adenopathy thyromegaly or neck vein distention. Cardiovascular examination reveals regular rhythm rate. S1-S2 normal. No S3 or S4. No discernible murmur noted. Heart sounds are distant and heart rate is 63 bpm. Lungs reveal scattered crackles. A few scattered rhonchi and wheezes are noted. Breath sounds equal bilaterally. Breath sounds are diminished throughout. Abdomen soft bowel sounds are heard. No masses or tenderness. Extremities are intact. No cyanosis clubbing or edema. Skin is without rash or lesion. Neurologic examination is brief but nonfocal. Results - Laboratory Findings CBC and BMP: 10/01/20 04:07 10/01/20 04:07 PT/INR, D-dimer PT 11.2 sec (9.0-12.0) 09/30/20 12:53 INR 1.1 (<1.2) 09/30/20 12:53 Abnormal lab findings: Abnormal Labs 09/30/20 09/30/20 09/30/20 11:59 11:59 23:12 WBC 13.7 H RBC 3.81 L Hgb 12.3 L Hct 37.0 L MCV MCHC RDW Plt Count 90 L Plt Count Comment MPV Neutrophils # 12.0 H Lymphocytes # 0.5 L Monocytes # 1.1 H Sodium 135 L BUN 47 H Creatinine 1.90 H Est GFR (CKD-EPI)AfAm Est GFR (CKD-EPI)NonAf BUN/Creatinine Ratio Glucose 165 H POC Glucose (mg/dL) 213 H Calcium Alkaline Phosphatase 169 H Total Protein 5.8 L Albumin 3.2 L Globulin 10/01/20 10/01/20 10/01/20 04:07 04:07 08:46 WBC 10.12 H RBC 3.06 L Hgb 9.5 L Hct 30.3 L MCV 99.0 H MCHC 31.4 L RDW 14.6 H Plt Count 65 L Plt Count Comment DECREASED A MPV 13.1 H Neutrophils # Lymphocytes # Monocytes # Sodium BUN 50.0 H Creatinine 2.0 H Est GFR (CKD-EPI)AfAm 37.8 L Est GFR (CKD-EPI)NonAf 32.6 L BUN/Creatinine Ratio 25.00 H Glucose POC Glucose (mg/dL) 66 L Calcium 8.3 L Alkaline Phosphatase Total Protein 4.6 L Albumin 3.10 L Globulin 1.5 L 10/01/20 12:13 WBC RBC Hgb Hct MCV MCHC RDW Plt Count Plt Count Comment MPV Neutrophils # Lymphocytes # Monocytes # Sodium BUN Creatinine Est GFR (CKD-EPI)AfAm Est GFR (CKD-EPI)NonAf BUN/Creatinine Ratio Glucose POC Glucose (mg/dL) 102 H Calcium Alkaline Phosphatase Total Protein Albumin Globulin - Diagnostic Findings Chest x-ray: image reviewed Assessment and Plan Assessment: Shortness of breath, secondary to possible bilateral patchy pneumonia. COVID testing was negative. History of recurrent ascites, status post recent high volume paracentesis on September 30. Acute kidney injury. Status post bilateral lung transplantation for COPD and pulmonary fibrosis, 2008, [facility]. Hypogammaglobulinemia. History of diabetes mellitus. History of hypertension. History of hyperlipidemia. Benign prostatic hypertrophy. Chronic gout. Stage III chronic kidney disease. Remote history of tobacco use and nicotine addiction. Remote history of alcohol abuse. Depression. Gastroesophageal reflux disease. Plan: Plan dated 10/01/2020. The patient is not really demonstrating much in the way of respiratory distress. Room air saturations are 93-94%. The patient's chest x-ray does show patchy bilateral infiltrates. The patient was given Levaquin. We will continue to follow. The patient should follow up with his transplant team at [facility], and also Dr. Syed here in [place]. No additional recommendations are made. Prognosis is guarded. Coronavirus testing was negative. Time with Patient: Greater than 30
[2020-10-01 15:42] VITALS: BMI 24.3
[2020-10-01 17:10] LABS: Glucose,Whole Blood 194 mg/dL (75-99)
[2020-10-01 19:48] LABS: Glucose,Whole Blood 98 mg/dL (75-99)
[2020-10-01] MEDS: INSULIN DETEMIR (LEVEMIR) 100 UNIT/ML SYR SQ SCH (22:12)
--- NOTE | 2020-10-01 22:55 | CONS ---
CONSULTATION REASON FOR CONSULT: Renal failure. HISTORY OF PRESENT ILLNESS: Patient is a 69-year-old male who has a history of pulmonary fibrosis and a bilateral lung transplant in 2008 at [facility]. He also has underlying chronic obstructive pulmonary disease and hypogammaglobulinemia, receiving IVIG treatments. Patient is admitted to the hospital with complaints of shortness of breath. He denied any fevers or chills. No nausea or vomiting this time. The patient was recently discharged from the hospital on 09/07/2020. He had paracentesis at that time during his hospitalization. Serum creatinine was 1.3 on 09/16/2020, and it is 1.9 this admission. The patient denies use of any nonsteroidal anti-inflammatory agents. He is not maintained on any MERARY inhibitors or NSAIDs. Blood pressure has been on the lower side and systolic was noted to be 96-99 mmHg yesterday. Currently patient is maintained on IV fluids. He states that he is feeling better. The patient has been voiding well and denies any urinary symptoms. He is maintained on Flomax. The patient does have a history of CKD with baseline creatinine about 1.5 mg/dL. It has been as high as 2 and 2.5 in July of 2020 as well as 1.86 during that hospitalization. PAST MEDICAL HISTORY: Significant for pulmonary fibrosis, COPD, status post bilateral lung transplant 2008 at [facility], type 2 diabetes, osteoarthritis, pneumonia, chronic hypogammaglobulinemia receiving IVIG, liver cirrhosis, etiology unclear. PAST SURGICAL HISTORY: Cardiac catheterization, bilateral lung transplant, umbilical hernia repair, inguinal hernia repair, paracentesis, cataract surgery, colonoscopy. SOCIAL HISTORY: Patient is a former smoker. No history of drug abuse or alcohol abuse. MEDICATIONS: Medications prior to admission included Prograf, Flomax, vitamin D, multivitamins, Fosamax, prednisone, sodium bicarb, omeprazole, metoprolol, Reglan, Norvasc Lasix, Florinef, Zithromax, Lipitor, Zyloprim, Levaquin. REVIEW OF SYSTEMS: As per HPI. Other systems negative. EXAMINATION: The patient is currently comfortable, awake. He is not in any acute distress. Blood pressure is 128/63, heart rate 65 per minute. He is afebrile. Examination of the heart S1, S2. Examination of the lungs, bilateral breath sounds are heard. Abdomen is soft, nontender. Examination of lower extremities shows no evidence of edema. PERSONAL CONSULTANT exam grossly intact. LAB: Show sodium 136, potassium 4.8, BUN 50, serum creatinine 2.0, hemoglobin 9.5 g/dL, calcium is 8.3, albumin 3.1, white cell count 10.1, hemoglobin 9.5. Blood cultures positive for gram-positive cocci in clusters. Fluid from the paracentesis is not growing any organisms yet. ASSESSMENT: 1. Acute kidney injury most likely prerenal associated with low blood pressure as well as underlying sepsis. The patient is maintained on IV fluids which I will continue. I will add midodrine as blood pressure stays on the lower side. This will also help with underlying liver cirrhosis. Check post-void residual. Rule out urine retention. 2. Metabolic acidosis. CO2 is at 27. Decrease sodium bicarb. 3. Gram-positive bacteremia, given a dose of vancomycin. ID has been consulted. Fluid culture from the paracentesis is pending. No other open sores or wounds. 4. Chronic kidney disease stage 3 with serum creatinine fluctuating between 1.5 and 8 mg/dL and as low as 1.1 on 09/07/2020. Etiology is likely underlying chronic kidney disease secondary to calcium urine inhibitors post lung transplant. Check urinalysis. Ultrasound, CT abdomen in July did not show any evidence of hydronephrosis or obstructive uropathy. PLAN: Continue IV fluids. Consider changing antibiotics to daptomycin. Decrease sodium bicarb, check postvoid residual. Add midodrine if blood pressure remains low and repeat labs in a.m. I will decrease the dose of Norvasc for now and add parameters to hold for systolic blood pressure less than 120 mmHg. Thank you for this consultation. We will continue to follow the patient with you during his hospitalization. MMODL / IJN: [id number] /
[2020-10-02 07:16] LABS: Glucose,Whole Blood 66 mg/dL (75-99)
[2020-10-02 07:39] LABS: Glucose,Whole Blood 88 mg/dL (75-99)
[2020-10-02] MEDS: INSULIN ASPART (NovoLOG) 100 UNIT/ML VIAL SQ SCH ×6 (08:34→22:29)
[2020-10-02] MEDS ORDERED: FUROSEMIDE 40 MG TAB PO SCH (09:00)
[2020-10-02] MEDS ORDERED: AZITHROMYCIN 250 MG TAB PO SCH (09:00)
[2020-10-02] MEDS: VANCOMYCIN 1,250 MG in SODIUM CHLORIDE 0.9% 250 ML IVPB SCH (09:07)
[2020-10-02] MEDS: FLUDROCORTISONE 0.1 MG TAB PO SCH (09:09)
[2020-10-02] MEDS: TAMSULOSIN 0.4 MG CAP.ER.24H PO SCH (09:09)
[2020-10-02] MEDS: amLODIPine 5 MG TAB PO SCH (09:09)
[2020-10-02] MEDS: MULTIVITAMINS, THERA 1 EACH TAB PO SCH (09:09)
[2020-10-02] MEDS: allopurinoL 100 MG TAB PO SCH (09:09)
[2020-10-02] MEDS: FERROUS SULFATE 325 MG TAB PO SCH (09:09)
[2020-10-02] MEDS: PANTOPRAZOLE 40 MG TABLET PO SCH ×2 (09:09→22:33)
[2020-10-02] MEDS: HEPARIN SODIUM,PORCINE/PF 5,000 UNIT/0.5 ML SYRINGE SQ SCH ×2 (09:09→22:29)
[2020-10-02] MEDS: ATORVASTATIN 10 MG TAB PO SCH (09:09)
[2020-10-02] MEDS: METOPROLOL SUCCINATE (ER) 100 MG TAB.ER.24H PO SCH (09:10)
[2020-10-02] MEDS: SERTRALINE 50 MG TAB PO SCH (09:10)
[2020-10-02] MEDS: TACROLIMUS 0.5 MG CAP PO SCH ×2 (09:10→22:30)
[2020-10-02] MEDS: predniSONE 5 MG TAB PO SCH (09:10)
[2020-10-02] MEDS: METOCLOPRAMIDE 10 MG TAB PO SCH (09:11)
[2020-10-02] MEDS: SODIUM BICARBONATE TAB 650 MG TAB PO SCH (09:12)
[2020-10-02] MEDS: TACROLIMUS 1 MG CAP PO SCH ×2 (09:12→22:29)
[2020-10-02] MEDS: HYDROcodone/APAP 5-325MG 1 EACH TAB PO PRN ×2 (09:21→22:29)
--- NOTE | 2020-10-02 11:28 | P.PN ---
Subjective Progress Note Date: 10/02/20 Principal diagnosis: Shortness of breath, hypoxemia 69-year-old male, with a history of cirrhosis, and double long transplant, who presents to the emergency department with complaints of shortness of breath. He apparently came to the emergency department because his girlfriend told him that he had a fever. He has significant abdominal distention, and recently had her paracentesis abdominis performed on September 30, where 5.4 L of fluid was removed. He also complained of nausea, cough, and he was coughing up yellow phlegm. He states his chest hurts when he coughs. He states, he was told that he had pneumonia in the emergency department. He tested negative for coronavirus. White count 10.12, hemoglobin 9.5, hematocrit 30.3, and platelet count 65,000. Sodium potassium chloride CO2 all normal. Anion gap 6, BUN 50, with a creatinine of 2.0. Chest x-ray did reveal bilateral patchy infiltrates. Repeat chest x-ray was similar to the initial chest x-ray. On 10/02/2020 patient seen in follow-up on medical surgical floor, she is resting comfortably in bed, he states he is breathing a little easier, he is on [place] Levaquin Zithromax and vancomycin, coughing, and bringing up some blood-tinged sputum, no chest pain, lung sounds reveal coarse crackles, and he feels chilled at times. His blood culture was positive for coagulase-negative staph, he was placed on vancomycin, abdomen is soft but a bit distended, patient is status post paracentesis with removal of 5.4 L of fluid. Ascitic fluid cultures are pending. No new labs from today. Patient appears to be in no acute distress, does have a occasional pain in his left lower back on the left side. No new chest x-ray today. Objective - Vital Signs Vital signs: Vital Signs Temp 97.6 F 10/02/20 07:14 Pulse 66 10/02/20 07:14 Resp 25 H 10/02/20 07:14 BP 131/64 10/02/20 07:14 Pulse Ox 95 10/02/20 07:14 Intake & Output 10/01/20 10/02/20 10/02/20 18:59 06:59 18:59 Intake Total 490 Balance 490 Weight 70.307 kg Intake: IV 250 Vancomycin 1,250 mg In 250 Sodium Chloride 0.9% 250 ml @ 125 mls/hr IVPB Q24HR REPLACED BY [facility] Rx#:[id number] Oral 240 Other: # Voids 1 - Exam GENERAL EXAM: Alert, very pleasant, 69-year-old white male, looks chronically ill, but no acute distress, he is currently on 2 L of oxygen, sats at 95%, comfortable in no apparent distress. HEAD: Normocephalic/atraumatic. EYES: Normal reaction of pupils, equal size. Conjunctiva pink, sclera white. NOSE: Clear with pink turbinates. THROAT: No erythema or exudates. NECK: No masses, no JVD, no thyroid enlargement, no adenopathy. CHEST: No chest wall deformity. Symmetrical expansion. LUNGS: Equal air entry with coarse crackles, but no wheeze, rhonchi or dullness. CVS: Regular rate and rhythm, normal S1 and S2, no gallops, no murmurs, no rubs ABDOMEN: Soft, nontender. No hepatosplenomegaly, normal bowel sounds, no guarding or rigidity. EXTREMITIES: No clubbing, no edema, no cyanosis, 2+ pulses and upper and lower extremities. MUSCULOSKELETAL: Muscle strength and tone normal. SPINE: No scoliosis or deformity SKIN: No rashes CENTRAL NERVOUS SYSTEM: Alert and oriented -3. No focal deficits, tone is normal in all 4 extremities. PSYCHIATRIC: Alert and oriented -3. Appropriate affect. Intact judgment and insight. - Labs CBC & Chem 7: 10/01/20 04:07 10/01/20 04:07 Labs: Abnormal Lab Results - Last 24 Hours (Table) 10/01/20 10/01/20 10/02/20 Range/Units 12:13 17:00 07:09 POC Glucose (mg/dL) 102 H 194 H 66 L (75-99) mg/dL Microbiology - Last 24 Hours (Table) 09/30/20 14:10 Gram Stain - Preliminary Paracentesis Fluid Body Fluid Culture - Preliminary 09/30/20 15:50 Blood Culture Gram Stain - Preliminary Blood Blood Culture - Preliminary Coagulase Negative Staph 09/30/20 15:50 Blood Culture - Preliminary Blood No Growth after 24 hours 09/30/20 15:50 Blood Culture - Final Blood Assessment and Plan Plan: Assessment: #1. Acute hypoxic respiratory failure related to bilateral patchy pneumonia, COVID 19 test was negative #2. Status post bilateral lung transplantation for COPD and pulmonary fibrosis in 2008 at [facility] #3. History of recurrent ascites, status post recent high-volume paracentesis on 09/30/2020 for removal of 540 cc of increased fluid in the fluid was sent for cultures #4. Acute kidney injury #5. Hypogammaglobulinemia #6. History of diabetes type II #7. History of hypertension #8. Hyperlipidemia #9. BPH #10. Chronic gout #11. Stage III chronic kidney disease #12. Remote history of tobacco use. Nicotine addiction #13. Remote history of alcohol abuse #14. Depression #15. Remote history of alcohol abuse #16. GERD/reflux Plan: Continue with antibiotics per Dr. Cox's recommendations, follow-up chest x-ray tomorrow, cultures are pending, and signs are stable, blood culture was positive for coagulase-negative staph likely related to contamination, no fever, but po sitive for chills, follow-up blood work in the morning, follow-up chest x-ray in the morning, GI and DVT prophylaxis. Continue weaning FiO2, continue to follow I performed a history & physical examination of the patient and discussed their management with my nurse practitioner, Marina Ayala. I reviewed the nurse practitioner's note and agree with the documented findings and plan of care. Lung sounds are positive for coarse crackles. The findings and the impression was discussed with the patient. I attest to the documentation by the nurse practitioner. Time with Patient: Less than 30
[2020-10-02 11:54] LABS: Glucose,Whole Blood 168 mg/dL (75-99)
[2020-10-02 12:36] LABS: Calcium 7.8 mg/dL (8.4-10.2); Potassium 4.5 mmol/L (3.5-5.1)
--- NOTE | 2020-10-02 14:07 | P.PN ---
Subjective Progress Note Date: 10/02/20 HISTORY OF PRESENT ILLNESS This is a 69-year-old male patient of Dr. Louie Alaniz with past medical history of bilateral lung transplant in 2008 at [facility] with under lying COPD, pulmonary fibrosis, hypogammaglobulinemia on IVIG replacement, chronic kidney disease stage III, diabetes mellitus type 2, benign prostatic hypertrophy, generalized osteoarthritis of the spine and degenerative disc disease, gastroesophageal reflux disease, hypertension recurrent depression. Patient had a recent hospitalization at [facility] and was treated for worsening ascites fluid overload along with intractable nausea vomiting and significant shortness of breath had paracentesis and at the time was having lactic acidosis with worsening metabolic problem. Patient was treated and was discharged within 48 hours and has done well. Patient presented to demurs department at [facility] today complaining of worsening dyspnea and shortness of breath intractable nausea and vomiting and distended abdomen with worsening pain and discomfort. Was seen and evaluated had elevated white blood cell at 13,000 left shifted chest x-ray showed slightly fluid overloaded by basilar infiltrate consistent with pneumonia. Patient was giving 1 g of Rocephin along with azithromycin paracentesis was done by radiology had made the symptoms slightly but better. Patient will be admitted to the hospital for the next day or 2 for IV antibiotic management along with O2 and updraft treatment. Also of my surprise patient found to be in acute kidney injury with chronic k idney disease his creatinine jumped quite bed since last admission. Patient will be seen nephrology continue hydration repeat BUN/creatinine next 24 hours. 10/01: Patient remains in the emergency center waiting for a MedSurg room. He has been transitioned into a hospital bed. Patient has been afebrile since yesterday afternoon. Heart rate 69, blood pressure 123/74, pulse ox 94% on 3 L nasal cannula. He is status post 2 bags of albumin. IV Levaquin has been transitioned to oral. Paracentesis fluid culture and blood culture in process. Repeat blood work this morning reveals WBC 10.1, hemoglobin 9.5, platelet count 65. Electrolytes are within normal limits. BUN 50 and creatinine 2. Blood sugars running between 66 and 213. Blood culture gram-positive cocci in clusters. Repeat chest x-ray reveals scattered airspace and interstitial infiltrates noted. Patient was prepared for discharge as he was feeling well. No fever or chills. Breathing was improved. He is scheduled for IVIG at the [facility] today. He had a total of 5.4 L of fluid removed from his abdomen during paracentesis. Discharge was held due to positive blood cultures, consult added for Dr. Villa, vancomycin 1. Patient is scheduled to see pulmonary medicine and nephrology today. 10/02: Patient states that he is feeling better today. Patient has not been seen by Dr. Villa. Blood culture has finalized with coag-negative staph most likely contamination. Patient continues to have occasional cough with sputum production. Patient does have mild ascites and will have GI reassess for need for hair centesis prior to discharge. We will plan for discharge tomorrow. Vancomycin discontinued and patient placed on for now. Patient has been afebrile, heart rate 66, blood pressure 131/64, pulse ox 95% on 2 L nasal cannula. Repeat blood work reveals sodium 131, potassium 4.5, chloride 102, CO2 24, BUN 48 creatinine 1.76. Blood sugars running between 88 and 168. Calcium 7.8. Patient has been seen by nephrology with plan to continue IV fluids, decreased sodium bicarb, check post void residual, and admitted treated blood pressure is low. Dr. Vargas is decreased dose of Norvasc. Nursing staff recei lamar a call from patient's physician at [facility] and requested a call back. This was Dr. Randolph Hammonds at [phone]. Anticipate discharge home tomorrow. REVIEW OF SYSTEMS Constitutional: No fever, no chills, no night sweats. No weight change. No weakness, fatigue or lethargy. No daytime sleepiness. EENT: No headache. No blurred vision or double vision, no loss of vision. No loss of Hearing, no ringing in the ears, no dizziness. No nasal drainage or co ngestion. No epistaxis. No sore throat. Lungs: No shortness of breath improved, cough, no sputum production. No wheezing. Cardiovascular: No chest pain, no lower extremity edema. No palpitations. No paroxysmal nocturnal dyspnea. No orthopnea. No lightheadedness or dizziness. No syncopal episodes. Abdominal: No abdominal pain. No nausea, vomiting. No diarrhea. No constipation. No bloody or tarry stools.. No loss of appetite. Reported ascites. Genitourinary: No dysuria, increased frequency, urgency. No urinary retention. Musculoskeletal: No myalgias. No muscle weakness, no gait dysfunction, no frequent falls. No back pain. No neck pain. Integumentary: No wounds, no lesions. No rash or pruritus. No unusual bruising. No change in hair or nails. Neurologic: No aphasia. No facial droop. No change in mentation. No head injury. No headache. No paralysis. No paresthesia. Psychiatric: No depression. No anxiety. No mood swings. Endocrine: Reports abnormal blood sugars. No weight change. PHYSICAL EXAMINATION Gen: This is a 69-year-old male. Patient is resting in bed and appears to be comfortable and in no acute distress. HEENT: Head is atraumatic, normocephalic. Pupils equal, round. Sclerae is anicteric. NECK: Supple. No JVD. No lymphadenopathy. No thyromegaly. LUNGS: Decreased breath sounds bilaterally. HEART: Regular rate and rhythm. No murmur. ABDOMEN: Soft positive bowel sounds minimal distended abdomen with sign of pa racentesis was drained with no bleeding. EXTREMITIES: No pedal edema. No calf tenderness. NEUROLOGICAL: Patient is awake, alert and oriented x3. Cranial nerves 2 through 12 are grossly intact. ASSESSMENT AND PLAN 1. Acute hypoxic respiratory failure secondary to bilateral patchy pneumonia. Pulmonary consult appreciated. Patient is currently on Levaquin, repeat chest x-ray ordered for tomorrow. 2. Severe ascites and fluid overload patient ended up going for paracentesis with radiology with good result so far continue to watch for any worsening symptoms. 3. Intractable nausea vomiting: With worsening abdominal discomfort and distention continue Zofran continue pantoprazole watch for any worsening symptoms. 4. Acute kidney injury. On nephrology consult. Patient is status post IV fluids. Continue to monitor closely. Avoid nephrotoxic agents. Sodium bicarb changed to 650 mg daily. 5. Possible bacteremia, most likely contamination with coag-negative staph. Consult with Dr. Villa. Vancomycin transitioned to for now. 6. History of bilateral lung transplant in 2008 at [facility] with underlying COPD and pulmonary fibrosis. Continue Prograf at home dosing. Prograf level ordered in the morning. 7. Hypogammaglobulinemia status post IVIG, stable. 8. Diabetes mellitus type 2. Patient will be resumed on Levemir 20 units daily and NovoLog scale. 9. Hypertension. Continue Norvasc decreased to 5 mg daily, Toprol-XL 100 mg da manolo. 10. Hyperlipidemia. Continue atorvastatin 10 mg daily. 11. Benign prostatic hypertrophy. Continue Flomax 0.4 mg daily. 12. Chronic gout. Continue allopurinol 100 mg daily. 13. Chronic kidney disease stage III. 14. Remote history of tobacco use and dependence. 15. Remote history of alcohol abuse. 16. Recurrent depression. Continue Zoloft 50 mg daily. 17. Chronic thrombocytopenia. 18. Gastroesophageal reflux disease and GI prophylaxis. Omeprazole. 19. DVT prophylaxis. Heparin subcu DISCHARGE PLAN Home in the next 24 hours Impression and plan of care have been directed as dictated by the signing physician. Tiera Elder nurse practitioner acting as scribe for signing physician. Objective - Vital Signs Vital signs: Vital Signs Temp 97.6 F 10/02/20 07:14 Pulse 66 10/02/20 07:14 Resp 25 H 10/02/20 07:14 BP 131/64 10/02/20 07:14 Pulse Ox 95 10/02/20 07:14 Intake & Output 10/01/20 10/02/20 10/02/20 18:59 06:59 18:59 Intake Total 490 Balance 490 Weight 70.307 kg Intake: IV 250 Vancomycin 1,250 mg In 250 Sodium Chloride 0.9% 250 ml @ 125 mls/hr IVPB Q24HR [facility] Rx#:[id number] Oral 240 Other: # Voids 1 - Labs CBC & Chem 7: 10/01/20 04:07 10/02/20 11:43 Labs: Abnormal Lab Results - Last 24 Hours (Table) 10/01/20 10/01/20 10/01/20 Range/Units 04:07 04:07 12:13 WBC 10.12 H (4.50-10.00) X 10*3/uL RBC 3.06 L (4.40-5.60) X 10*6/uL Hgb 9.5 L (13.0-17.0) g/dL Hct 30.3 L (39.6-50.0) % MCV 99.0 H (80.0-97.0) fL MCHC 31.4 L (32.0-37.0) g/dL RDW 14.6 H (11.5-14.5) % Plt Count 65 L (140-440) X 10*3/uL Plt Count Comment DECREASED A MPV 13.1 H (9.5-12.2) fL BUN 50.0 H (9.0-27.0) mg/dL Creatinine 2.0 H (0.6-1.5) mg/dL Est GFR (CKD-EPI)AfAm 37.8 L (60.0-200.0) Est GFR (CKD-EPI)NonAf 32.6 L (60.0-200.0) BUN/Creatinine Ratio 25.00 H (12.00-20.00) Ratio POC Glucose (mg/dL) 102 H (75-99) mg/dL Calcium 8.3 L (8.7-10.3) mg/dL Total Protein 4.6 L (6.2-8.2) g/dL Albumin 3.10 L (3.80-4.90) g/dL Globulin 1.5 L (1.6-3.3) g/dL 10/01/20 10/02/20 Range/Units 17:00 07:09 WBC (4.50-10.00) X 10*3/uL RBC (4.40-5.60) X 10*6/uL Hgb (13.0-17.0) g/dL Hct (39.6-50.0) % MCV (80.0-97.0) fL MCHC (32.0-37.0) g/dL RDW (11.5-14.5) % Plt Count (140-440) X 10*3/uL Plt Count Comment MPV (9.5-12.2) fL BUN (9.0-27.0) mg/dL Creatinine (0.6-1.5) mg/dL Est GFR (CKD-EPI)AfAm (60.0-200.0) Est GFR (CKD-EPI)NonAf (60.0-200.0) BUN/Creatinine Ratio (12.00-20.00) Ratio POC Glucose (mg/dL) 194 H 66 L (75-99) mg/dL Calcium (8.7-10.3) mg/dL Total Protein (6.2-8.2) g/dL Albumin (3.80-4.90) g/dL Globulin (1.6-3.3) g/dL Microbiology - Last 24 Hours (Table) 09/30/20 14:10 Gram Stain - Preliminary Paracentesis Fluid Body Fluid Culture - Preliminary 09/30/20 15:50 Blood Culture Gram Stain - Preliminary Blood Blood Culture - Preliminary Coagulase Negative Staph 09/30/20 15:50 Blood Culture - Preliminary Blood No Growth after 24 hours 09/30/20 15:50 Blood Culture - Final Blood
[2020-10-02 16:42] LABS: Glucose,Whole Blood 176 mg/dL (75-99)
[2020-10-02] MEDS ORDERED: NON FORMULARY DRUG (Alendronate Sodium [Fosamax] 70 MG Tablet) PO SCH (17:20)
--- NOTE | 2020-10-02 18:55 | PN ---
PROGRESS NOTE Patient is seen for followup for acute kidney injury. Renal function has improved. The patient denies any significant complaints. His blood culture is growing coagulase- negative Staph. He has not had any fevers. There are plans for possible discharge today. The patient did get a dose of vancomycin. PHYSICAL EXAMINATION: On examination today, blood pressure is 119/60, heart rate 60 per minute. He is afebrile. EXAMINATION OF THE HEART: S1, S2. EXAMINATION OF THE LUNGS: Bilateral breath sounds are heard. Abdomen is soft, nontender and distended. Examination of lower extremities shows trace edema bilaterally. CUTTER OPERATOR TILE exam is grossly intact. LABS: Labs show sodium 131, potassium 4.5, BUN 48, creatinine 1.76. ASSESSMENT: 1. Acute kidney injury with serum creatinine currently improving. The patient is status post IV fluids. His blood pressure was low initially. It is currently improved. We can discontinue the IV fluids. 2. Metabolic acidosis. The patient was on sodium bicarb. It was decreased. Continue with the lower dose. 3. Coagulase-negative Staph bacteremia, possible contaminant. 4. Chronic kidney disease, stage 3, serum creatinine fluctuating between 1.5 and 1.8, but as low as 1.1 on 09/07/2020, some degree of chronic kidney disease secondary to calcineurin inhibitors (pro tacrolimus) that patient has been taking post lung transplant. PLAN: Discontinue IV fluids. Consider paracentesis prior to discharge. Continue with lower dose of sodium bicarb upon discharge as well. MMODL / IJN: [id number] /
[2020-10-02 21:04] LABS: Glucose,Whole Blood 195 mg/dL (75-99)
[2020-10-02] MEDS: INSULIN DETEMIR (LEVEMIR) 100 UNIT/ML SYR SQ SCH (22:28)
[2020-10-03 06:23] LABS: HCT 31.1 % (39.0-53.0); HGB 10.4 gm/dL (13.0-17.5); Hypochromasia Slight; MCH 32.6 pg (25.0-35.0); MCHC 33.4 g/dL (31.0-37.0); MCV 97.5 fL (80.0-100.0); Mean Platelet Volume 8.3; Platelet Count 76 k/uL (150-450); RBC 3.19 m/uL (4.30-5.90); RDW 15.2 % (11.5-15.5)
[2020-10-03 06:37] LABS: Albumin 2.7 g/dL (3.5-5.0); Calcium 8.1 mg/dL (8.4-10.2); Potassium 4.4 mmol/L (3.5-5.1); Total Bilirubin 0.3 mg/dL (0.2-1.3); Total Protein 4.9 g/dL (6.3-8.2)
[2020-10-03 07:23] LABS: Glucose,Whole Blood 106 mg/dL (75-99)
[2020-10-03] MEDS: INSULIN ASPART (NovoLOG) 100 UNIT/ML VIAL SQ SCH ×2 (07:46→12:10)
[2020-10-03] MEDS: HEPARIN SODIUM,PORCINE/PF 5,000 UNIT/0.5 ML SYRINGE SQ SCH (07:58)
[2020-10-03] MEDS: amLODIPine 5 MG TAB PO SCH (07:58)
[2020-10-03] MEDS: ATORVASTATIN 10 MG TAB PO SCH (07:59)
[2020-10-03] MEDS: METOCLOPRAMIDE 10 MG TAB PO SCH (07:59)
[2020-10-03] MEDS: SERTRALINE 50 MG TAB PO SCH (07:59)
[2020-10-03] MEDS: METOPROLOL SUCCINATE (ER) 100 MG TAB.ER.24H PO SCH (07:59)
[2020-10-03] MEDS: FLUDROCORTISONE 0.1 MG TAB PO SCH (07:59)
[2020-10-03] MEDS: MULTIVITAMINS, THERA 1 EACH TAB PO SCH (07:59)
[2020-10-03] MEDS: allopurinoL 100 MG TAB PO SCH (07:59)
[2020-10-03] MEDS: PANTOPRAZOLE 40 MG TABLET PO SCH (07:59)
[2020-10-03] MEDS: SODIUM BICARBONATE TAB 650 MG TAB PO SCH (07:59)
[2020-10-03] MEDS: TACROLIMUS 0.5 MG CAP PO SCH (07:59)
[2020-10-03] MEDS: FERROUS SULFATE 325 MG TAB PO SCH (07:59)
[2020-10-03] MEDS: predniSONE 5 MG TAB PO SCH (07:59)
[2020-10-03] MEDS: TAMSULOSIN 0.4 MG CAP.ER.24H PO SCH (07:59)
[2020-10-03] MEDS: TACROLIMUS 1 MG CAP PO SCH (08:00)
[2020-10-03] MEDS: HYDROcodone/APAP 5-325MG 1 EACH TAB PO PRN (08:10)
--- NOTE | 2020-10-03 08:15 | XR ---
EXAMINATION TYPE: XR chest 1V portable DATE OF EXAM: 10/03/2020 Comparison: 10/01/2020 Clinical History: 69-year-old male pneumonia Findings: Heart is enlarged. Sternal clam shell wire fixation. Patchy perihilar and interstitial opacities. Smo oth pleural thickening along the periphery of the right lung redemonstrated. Surgical clips at the co lum of prior bilateral lung transplantation. Impression: 1. Mild cardiomegaly and redemonstrated changes of bilateral lung transplantation. 2. Continued scattered patchy interstitial and airspace infiltrates. Opacities may be slightly worsen ed on the right.
[2020-10-03] MEDS ORDERED: LEVOFLOXACIN 750 MG TAB PO SCH (09:00)
--- NOTE | 2020-10-03 10:17 | P.DS ---
Providers Date of admission: 09/30/20 15:24 Expected date of discharge: 10/03/20 Attending physician: Reinaldo Gerard Consults: 09/30/20 17:24 Consult Physician Routine Consulting Provider: Roberto Suarez Consult Reason/Comments: SOB, Lung Transplant Do you want consulting provider notified?: Yes Consult Physician Routine Consulting Provider: Carmen Vargas Consult Reason/Comments: Acute Kidney injury Do you want consulting provider notified?: Yes 10/01/20 10:42 Consult Physician Routine Consulting Provider: Ramos Villa Consult Reason/Comments: + blood culture Do you want consulting provider notified?: Yes Primary care physician: Louie Alaniz [place] [facility] Course: HISTORY OF PRESENT ILLNESS This is a 69-year-old male patient of Dr. Louie Alaniz with past medical history of bilateral lung transplant in 2008 at [facility] with underlying COPD, pulmonary fibrosis, hypogammaglobulinemia on IVIG replacement, chronic kidney disease stage III, diabetes mellitus type 2, benign prostatic hypertrophy, generalized osteoarthritis of the spine and degenerative disc disease, gastroesophageal reflux disease, hypertension recurrent depression. Patient had a recent hospitalization at [facility] and was treated for worsening ascites fluid overload along with intractable nausea vomiting and significant shortness of breath had paracentesis and at the time was having lactic acidosis with worsening metabolic problem. Patient was treated and was discharged within 48 hours and has done well. Patient presented to demurs department at [facility] today complaining of worsening dyspnea and shortness of breath intractable nausea and vomiting and distended abdomen with worsening pain and discomfort. Was seen and evaluated had elevated white blood cell at 13,000 left shifted chest x-ray showed slightly fluid overloaded by basilar infiltrate consistent with pneumonia. Patient was giving 1 g of Rocephin along with azithromycin paracentesis was done by radiology had made the symptoms slightly but better. Patient will be admitted to the hospital for the next day or 2 for IV antibiotic management along with O2 and updraft treatment. Also of my surprise patient found to be in acute kidney injury with chronic kidney disease his creatinine jumped quite bed since last admission. Patient will be seen nephrology continue hydration repeat BUN/creatinine next 24 hours. 10/01: Patient remains in the emergency center waiting for a MedSurg room. He has been transitioned into a hospital bed. Patient has been afebrile since yesterday afternoon. Heart rate 69, blood pressure 123/74, pulse ox 94% on 3 L nasal cannula. He is status post 2 bags of albumin. IV Levaquin has been transitioned to oral. Paracentesis fluid culture and blood culture in process. Repeat blood work this morning reveals WBC 10.1, hemoglobin 9.5, platelet count 65. Electrolytes are within normal limits. BUN 50 and creatinine 2. Blood sugars running between 66 and 213. Blood culture gram-positive cocci in clusters. Repeat chest x-ray reveals scattered airspace and interstitial infiltrates noted. Patient was prepared for discharge as he was feeling well. No fever or chills. Breathing was improved. He is scheduled for IVIG at the [facility] today. He had a total of 5.4 L of fluid removed from his abdomen during paracentesis. Discharge was held due to positive blood cultures, consult added for Dr. Villa, vancomycin 1. Patient is scheduled to see pulmonary medicine and nephrology today. 10/02: Patient states that he is feeling better today. Patient has not been seen by Dr. Villa. Blood culture has finalized with coag-negative staph most likely contamination. Patient continues to have occasional cough with sputum production. Patient does have mild ascites and will have GI reassess for need for hair centesis prior to discharge. We will plan for discharge tomorrow. Vancomycin discontinued and patient placed on for now. Patient has been afebrile, heart rate 66, blood pressure 131/64, pulse ox 95% on 2 L nasal cannula. Repeat blood work reveals sodium 131, potassium 4.5, chloride 102, CO2 24, BUN 48 creatinine 1.76. Blood sugars running between 88 and 168. Calcium 7.8. Patient has been seen by nephrology with plan to continue IV fluids, decreased sodium bicarb, check post void residual, and admitted treated blood pressure is low. Dr. Vargas is decreased dose of Norvasc. Nursing staff received a call from patient's physician at [facility] and requested a call back. This was Dr. Randolph Hammonds at [phone]. Anticipate discharge home tomorrow. 10/03: ASSESSMENT AND PLAN 1. Acute hypoxic respiratory failure secondary to bilateral patchy pneumonia. Pulmonary consult appreciated. Patient is currently on Levaquin, repeat chest x-ray ordered for tomorrow. 2. Severe ascites and fluid overload patient ended up going for paracentesis with radiology with good result so far continue to watch for any worsening symptoms. 3. Intractable nausea vomiting: With worsening abdominal discomfort and distention continue Zofran continue pantoprazole watch for any worsening symptoms. 4. Acute kidney injury. 5. Possible bacteremia, most likely contamination with coag-negative staph. 6. History of bilateral lung transplant in 2008 at [facility] with underlying COPD and pulmonary fibrosis. 7. Hypogammaglobulinemia status post IVIG, stable. 8. Diabetes mellitus type 2. 9. Hypertension. 10. Hyperlipidemia. 11. Benign prostatic hypertrophy. 12. Chronic gout. Continue allopurinol 100 mg daily. 13. Chronic kidney disease stage III. 14. Remote history of tobacco use and dependence. 15. Remote history of alcohol abuse. 16. Recurrent depression. Continue Zoloft 50 mg daily. 17. Chronic thrombocytopenia. 18. Gastroesophageal reflux disease and GI prophylaxis. Omeprazole. 19. DVT prophylaxis. Heparin subcu DISCHARGE PLAN Home Impression and plan of care have been directed as dictated by the signing physician. Tiera Elder nurse practitioner acting as scribe for signing phys ician. Patient Condition at Discharge: Good Plan - Discharge Summary Discharge Rx Participant: No New Discharge Prescriptions: New Levofloxacin [Levaquin] 750 mg PO DAILY #5 tab Continue Metoprolol Succinate (ER) [Toprol XL] 100 mg PO DAILY Tacrolimus [Prograf] 2 mg PO BID Fludrocortisone [Florinef] 0.1 mg PO DAILY Ergocalciferol (Vitamin D2) [Drisdol] 50,000 units PO Q15D Alendronate Sodium [Fosamax] 70 mg PO WE Multivitamins, Thera [Multivitamin (formulary)] 1 tab PO DAILY Ferrous Sulfate [Iron (65 MG Elemental)] 325 mg PO DAILY Allopurinol [Zyloprim] 100 mg PO DAILY amLODIPine [Norvasc] 10 mg PO DAILY Metoclopramide [Reglan] 10 mg PO DAILY Sertraline [Zoloft] 50 mg PO DAILY Omeprazole [PriLOSEC] 40 mg PO BID Tacrolimus [Prograf] 0.5 mg PO BID Tamsulosin HCl [Flomax] 0.4 mg PO DAILY predniSONE 5 mg PO DAILY #0 Atorvastatin [Lipitor] 10 mg PO DAILY Sodium Bicarbonate 650 mg PO BID HYDROcodone/APAP 5-325MG [Oxford 5-325] 1 tab PO TID PRN PRN Reason: Pain Insulin Detemir [Levemir Flextouch] 20 unit SQ HS Azithromycin [Zithromax] 250 mg PO MOWEFR Furosemide [Lasix] 40 mg PO Q48H Discharge Medication List Alendronate Sodium [Fosamax] 70 mg PO WE 11/06/13 [History] Ergocalciferol (Vitamin D2) [Drisdol] 50,000 units PO Q15D 11/06/13 [History] Fludrocortisone [Florinef] 0.1 mg PO DAILY 11/06/13 [History] Metoprolol Succinate (ER) [Toprol XL] 100 mg PO DAILY 11/06/13 [History] Tacrolimus [Prograf] 2 mg PO BID 11/06/13 [History] Multivitamins, Thera [Multivitamin (formulary)] 1 tab PO DAILY 07/23/16 [History] Ferrous Sulfate [Iron (65 MG Elemental)] 325 mg PO DAILY 09/29/16 [History] Allopurinol [Zyloprim] 100 mg PO DAILY 05/06/17 [History] Metoclopramide [Reglan] 10 mg PO DAILY 05/06/17 [History] amLODIPine [Norvasc] 10 mg PO DAILY 05/06/17 [History] Omeprazole [PriLOSEC] 40 mg PO BID 03/02/18 [History] Sertraline [Zoloft] 50 mg PO DAILY 03/02/18 [History] Tacrolimus [Prograf] 0.5 mg PO BID 08/16/19 [History] Tamsulosin HCl [Flomax] 0.4 mg PO DAILY 08/16/19 [History] predniSONE 5 mg PO DAILY #0 08/21/19 [Rx] Atorvastatin [Lipitor] 10 mg PO DAILY 05/30/20 [History] Sodium Bicarbonate 650 mg PO BID 08/05/20 [History] HYDROcodone/APAP 5-325MG [Oxford 5-325] 1 tab PO TID PRN 08/15/20 [History] Insulin Detemir [Levemir Flextouch] 20 unit SQ HS 09/05/20 [History] Azithromycin [Zithromax] 250 mg PO MOWEFR 09/30/20 [History] Furosemide [Lasix] 40 mg PO Q48H 09/30/20 [History] Levofloxacin [Levaquin] 750 mg PO DAILY #5 tab 10/01/20 [Rx] Follow up Appointment(s)/Referral(s): Louie Alaniz MD [Primary Care Provider] - 1 Week Discharge Disposition: HOME SELF-CARE
--- NOTE | 2020-10-03 10:54 | P.PN ---
Subjective Progress Note Date: 10/03/20 Principal diagnosis: Shortness of breath, hypoxemia 69-year-old male, with a history of cirrhosis, and double long transplant, who presents to the emergency department with complaints of shortness of breath. He apparently came to the emergency department because his girlfriend told him that he had a fever. He has significant abdominal distention, and recently had her paracentesis abdominis performed on September 30, where 5.4 L of fluid was removed. He also complained of nausea, cough, and he was coughing up yellow phlegm. He states his chest hurts when he coughs. He states, he was told that he had pneumonia in the emergency department. He tested negative for coronavirus. White count 10.12, hemoglobin 9.5, hematocrit 30.3, and platelet count 65,000. Sodium potassium chloride CO2 all normal. Anion gap 6, BUN 50, with a creatinine of 2.0. Chest x-ray did reveal bilateral patchy infiltrates. Repeat chest x-ray was similar to the initial chest x-ray. On 10/02/2020 patient seen in follow-up on medical surgical floor, she is resting comfortably in bed, he states he is breathing a little easier, he is on Saxon Levaquin Zithromax and vancomycin, coughing, and bringing up some blood-tinged sputum, no chest pain, lung sounds reveal coarse crackles, and he feels chilled at times. His blood culture was positive for coagulase-negative staph, he was placed on vancomycin, abdomen is soft but a bit distended, patient is status post paracentesis with removal of 5.4 L of fluid. Ascitic fluid cultures are pending. No new labs from today. Patient appears to be in no acute distress, does have a occasional pain in his left lower back on the left side. No new chest x-ray today. On October 03 2020 patient seen in follow-up on medical floor, doing well, breath ing easier, patient was able to get up in the shower today, feels better, currently on 3 L of oxygen pulse ox is 98%, he is afebrile, stable vitals through the night, no fever or chills, denies chest x-ray shows mild cardiomegaly and bilateral lung transplantation changes, and scattered patchy interstitial and airspace infiltrates with slightly worsening on the right. Clinically patient is improving, today's labs have been reviewed, white blood cell, is 5.0, hemoglobin is 10.4, sodium is 135, the rest of electrolytes were within normal limits, renal profile is improving, BUN is 43, creatinine is 1.61, abdomen a bit more distended, and patient is being considered for repeat ultrasound-guided paracentesis by interventional radiology. Ascitic fluid cultures remained negative, sputum culture has been sent pending at this time. Vancomycin has been discontinued, patient is on a combination of azithromycin, Levaquin, and capsule was added by ID service. Mild swelling in his legs, and patient states it's at about the baseline. Objective - Vital Signs Vital signs: Vital Signs Temp 97.8 F 10/03/20 05:00 Pulse 62 10/02/20 20:13 Resp 16 10/03/20 05:00 BP 133/67 10/03/20 05:00 Pulse Ox 98 10/03/20 05:00 Intake & Output 10/02/20 10/03/20 10/03/20 18:59 06:59 18:59 Other: # Voids 3 - Exam GENERAL EXAM: Alert, very pleasant, 69-year-old white male, looks chronically ill, but no acute distress, he is currently on 2 L of oxygen, sats at 95%, com fortable in no apparent distress. HEAD: Normocephalic/atraumatic. EYES: Normal reaction of pupils, equal size. Conjunctiva pink, sclera white. NOSE: Clear with pink turbinates. THROAT: No erythema or exudates. NECK: No masses, no JVD, no thyroid enlargement, no adenopathy. CHEST: No chest wall deformity. Symmetrical expansion. LUNGS: Equal air entry with coarse crackles, but no wheeze, rhonchi or dullness. CVS: Regular rate and rhythm, normal S1 and S2, no gallops, no murmurs, no rubs ABDOMEN: Soft, nontender. No hepatosplenomegaly, normal bowel sounds, no guarding or rigidity. EXTREMITIES: No clubbing, no edema, no cyanosis, 2+ pulses and upper and lower extremities. MUSCULOSKELETAL: Muscle strength and tone normal. SPINE: No scoliosis or deformity SKIN: No rashes CENTRAL NERVOUS SYSTEM: Alert and oriented -3. No focal deficits, tone is normal in all 4 extremities. PSYCHIATRIC: Alert and oriented -3. Appropriate affect. Intact judgment and insight. - Labs CBC & Chem 7: 10/03/20 05:20 10/03/20 05:20 Labs: Abnormal Lab Results - Last 24 Hours (Table) 10/02/20 10/02/20 10/02/20 Range/Units 11:43 11:52 16:38 RBC (4.30-5.90) m/uL Hgb (13.0-17.5) gm/dL Hct (39.0-53.0) % Plt Count (150-450) k/uL Sodium 131 L (137-145) mmol/L BUN 48 H (9-20) mg/dL Creatinine 1.76 H (0.66-1.25) mg/dL Glucose 139 H (74-99) mg/dL POC Glucose (mg/dL) 168 H 176 H (75-99) mg/dL Calcium 7.8 L (8.4-10.2) mg/dL Alkaline Phosphatase (38-126) U/L Total Protein (6.3-8.2) g/dL Albumin (3.5-5.0) g/dL 10/02/20 10/03/20 10/03/20 Range/Units 20:57 05:20 05:20 RBC 3.19 L (4.30-5.90) m/uL Hgb 10.4 L (13.0-17.5) gm/dL Hct 31.1 L (39.0-53.0) % Plt Count 76 L (150-450) k/uL Sodium 135 L (137-145) mmol/L BUN 43 H (9-20) mg/dL Creatinine 1.61 H (0.66-1.25) mg/dL Glucose 120 H (74-99) mg/dL POC Glucose (mg/dL) 195 H (75-99) mg/dL Calcium 8.1 L (8.4-10.2) mg/dL Alkaline Phosphatase 140 H (38-126) U/L Total Protein 4.9 L (6.3-8.2) g/dL Albumin 2.7 L (3.5-5.0) g/dL 10/03/20 Range/Units 07:22 RBC (4.30-5.90) m/uL Hgb (13.0-17.5) gm/dL Hct (39.0-53.0) % Plt Count (150-450) k/uL Sodium (137-145) mmol/L BUN (9-20) mg/dL Creatinine (0.66-1.25) mg/dL Glucose (74-99) mg/dL POC Glucose (mg/dL) 106 H (75-99) mg/dL Calcium (8.4-10.2) mg/dL Alkaline Phosphatase (38-126) U/L Total Protein (6.3-8.2) g/dL Albumin (3.5-5.0) g/dL Microbiology - Last 24 Hours (Table) 09/30/20 15:50 Blood Culture - Final Blood 10/02/20 09:41 Gram Stain - Preliminary Sputum Sputum Culture - Preliminary 09/30/20 15:50 Blood Culture Gram Stain - Final Blood Blood Culture - Final Coagulase Negative Staph 09/30/20 14:10 Anaerobic Culture - Preliminary Paracentesis Fluid Assessment and Plan Plan: Assessment: #1. Acute hypoxic respiratory failure related to bilateral patchy pneumonia, COVID 19 test was negative #2. Status post bilateral lung transplantation for COPD and pulmonary fibrosis in 2008 at [facility] #3. History of recurrent ascites, status post recent high-volume paracentesis on 09/30/2020 for removal of 540 cc, ascites fluid cultures negative thus far #4. Acute kidney injury, improving #5. Hypogammaglobulinemia #6. History of diabetes type II #7. History of hypertension #8. Hyperlipidemia #9. BPH #10. Chronic gout #11. Stage III chronic kidney disease #12. Remote history of tobacco use. Nicotine addiction #13. Remote history of alcohol abuse #14. Depression #15. Remote history of alcohol abuse #16. GERD/reflux Plan: Patient is doing well, today's chest x-ray has been reviewed, slight worsening in the appearance of right sided infiltrates, is mild swelling in his lower extremities, could possibly benefit from a dose of diuretics, we will leave that to nephrology and attending physician, at any rate his oxygenation is stable, no fever or chills, clinically he is feeling better, is going for repeat paracentesis today, his paracentesis every 2 weeks will be increased to weekly basis. Antibiotics postdischarge per ID service recommendations, follow-up with Dr. Syed in the office in 7-10 days. I performed a history & physical examination of the patient and discussed their management with my nurse practitioner, Marina Ayala. I reviewed the nurse practitioner's note and agree with the documented findings and plan of care. Lung sounds are positive for coarse crackles. The findings and the impression was discussed with the patient. I attest to the documentation by the nurse practitioner. Time with Patient: Less than 30
[2020-10-03 12:06] LABS: Glucose,Whole Blood 91 mg/dL (75-99)
[2020-10-03 13:21] VITALS: BP 122/66; PULSE 56; RESP 17; TEMP 97.6
--- NOTE | 2020-10-03 13:47 | US ---
EXAMINATION TYPE: US abdomen limited DATE OF EXAM: 10/03/2020 COMPARISON: NONE CLINICAL HISTORY: ascites. Small amount of ascites. IMPRESSION: Small amount of ascites
--- NOTE | 2020-10-03 19:44 | PN ---
PROGRESS NOTE Patient is seen for followup for acute kidney injury. There is consideration for paracentesis today if there is significant fluid noted on the ultrasound. Overall, patient denies any significant complaints. His serum creatinine is better. Creatinine is down to 1.6. He states he has been voiding. PHYSICAL EXAMINATION: Blood pressure was 133/67, heart rate 56 per minute. He is afebrile. EXAMINATION OF THE HEART: S1 and S2. EXAMINATION OF LUNGS: Bilateral breath sounds are heard. ABDOMEN: Soft, non-tender. Examination of lower extremities shows 1+ edema bilaterally. CREDIT ADMINISTRATOR exam is grossly intact. LABS: Sodium 135, potassium 4.4, chloride 104, hemoglobin 10.4, creatinine 1.6 and BUN of 43. ASSESSMENT: 1. Acute kidney injury, currently improved. Patient is status post IV fluids. No obstructive uropathy. He has some lower extremity edema. Blood pressure was also low on initial admission, currently improved. 2. Metabolic acidosis, maintained on sodium bicarb, currently improved, and the dose has been decreased. 3. Coagulase-negative Staph bacteremia, possible contaminant. 4. Chronic kidney disease, stage 3. Previous creatinine about 1.5 and as low as 1.1 on 09/07/2020, mostly associated with use of calcineurin inhibitors for lung transplant. 5. History of bilateral lung transplant. PLAN: Continue off of IV fluids. Okay to for discharge. Follow up as outpatient for CKD. Continue with the lower dose of sodium bicarb. May need to resume low-dose loop diuretics at home, depending on volume status and blood pressure. MMODL / IJN: [id number] /
[2020-10-11] MEDS ORDERED: ERGOCALCIFEROL 1,250 MCG (50,000 IU) CAPSULE PO SCH (09:00)
== END 2020-10-03 14:50 | disposition home or self-care (01) | DRG 205 ==
LOC: EC 11:22 → 1SOBS 15:24 → 4SSUR 18:28 → 1SOBS 10-01 07:52
PROVIDERS: ADMIT Internal Medicine Geriatric Medicine; ATTEND Internal Medicine Geriatric Medicine
PROC: 0W9G3ZZ Drainage of Peritoneal Cavity, Percutaneous Approach (ICD-10-PCS; principal; 2020-09-30)
DX: T86.812 Lung transplant infection (principal); J18.9 Pneumonia, unspecified organism; J96.21 Acute and chronic respiratory failure with hypoxia; N17.9 Acute kidney failure, unspecified; R18.8 Other ascites; D80.1 Nonfamilial hypogammaglobulinemia; F33.9 Major depressive disorder, recurrent, unspecified; J44.0 Chronic obstructive pulmonary disease with (acute) lower respiratory infection; E87.2 Acidosis; Z94.2 Lung transplant status; R10.9 Unspecified abdominal pain; Z79.4 Long term (current) use of insulin; Z82.5 Family history of asthma and other chronic lower respiratory diseases; K74.60 Unspecified cirrhosis of liver; Z20.822 Contact with and (suspected) exposure to COVID-19; E87.70 Fluid overload, unspecified; E78.5 Hyperlipidemia, unspecified; N40.0 Benign prostatic hyperplasia without lower urinary tract symptoms; N18.30 Chronic kidney disease, stage 3 unspecified; D69.6 Thrombocytopenia, unspecified; K21.9 Gastro-esophageal reflux disease without esophagitis; M1A.9XX0 Chronic gout, unspecified, without tophus (tophi); E11.22 Type 2 diabetes mellitus with diabetic chronic kidney disease; I12.9 Hypertensive chronic kidney disease with stage 1 through stage 4 chronic kidney disease, or unspecified chronic kidney disease; Z87.19 Personal history of other diseases of the digestive system; Z96.1 Presence of intraocular lens; Z87.01 Personal history of pneumonia (recurrent); Z79.52 Long term (current) use of systemic steroids; M15.9 Polyosteoarthritis, unspecified; I45.10 Unspecified right bundle-branch block; F41.9 Anxiety disorder, unspecified; Z79.83 Long term (current) use of bisphosphonates; Y83.0 Surgical operation with transplant of whole organ as the cause of abnormal reaction of the patient, or of later complication, without mention of misadventure at the time of the procedure
CPT/HCPCS: 36415; 49083; 71045; 76705; 80048; 80053; 82945; 83690; 85025; 85027; 85610; 85730; 87040; 87070; 87075; 87077; 87186; 87205; 87635; 88108; 88305; 89050; 93005; 99285

== ENCOUNTER 2020-10-14 11:45 | Day surgery (SDC) | payer MEDICARE, OTHER ==
[~2020-10-14 11:45] MED LIST changes: +ALBUMIN HUMAN 25% 50 ML in EMPTY BAG 1 BAG IVPB SCH; -ALBUTEROL NEBULIZED 2.5 MG/3 ML INHALATION ONE; -[UNRECOGNIZED DRUG - OTHER] INHALATION ONE
[2020-10-14 12:40] LABS: Mean Platelet Volume 8.1
[2020-10-14 12:44] LABS: Platelet Count 78 k/uL (150-450)
[2020-10-14 12:47] VITALS: TEMP 98.1
[2020-10-14 12:55] LABS: Prothrombin Time 11.1 sec (9.0-12.0)
[2020-10-14] MEDS: ALBUMIN HUMAN 25% 50 ML in EMPTY BAG 1 BAG IVPB SCH ×4 (13:42→14:28)
[2020-10-14 14:53] VITALS: PULSE 72
[2020-10-14 14:55] VITALS: BP 136/68; RESP 18
--- NOTE | 2020-10-14 17:25 | US ---
EXAMINATION TYPE: US paracentesis abd w/image DATE OF EXAM: 10/14/2020 COMPARISON: NONE HISTORY: Ascites. PROCEDURE: Maximal barrier technique was utilized. The skin overlying a suitable pocket of fluid was localized with ultrasound and the overlying skin was prepped and draped. Ultrasound was utilized with sterile technique. Lidocaine was used for local anesthesia and a skin meri made with a scalpel. Catheter was advanced under direct ultrasound guidance into a suitable pocket of fluid and approximately 6.1 L lit ers of serous fluid were removed. Catheter was withdrawn and hemostasis achieved. There is no immed iate complication; the patient is discharged in stable condition. IMPRESSION: STATUS POST ULTRASOUND GUIDED PARACENTESIS FOR PALLIATION OF ASCITES. THIS PROCEDURE WA S PERFORMED BY THE UNDERSIGNED.
== END 2020-10-14 15:00 | disposition home or self-care (01) ==
LOC: RADPROMAIN 11:45
PROVIDERS: ATTEND Internal Medicine
DX: R18.8 Other ascites (principal)
CPT/HCPCS: 82565; 82947; 85049; 85610; 36415; 49083; P9047

== ENCOUNTER → 2020-10-15 | Outpatient (CLI) | payer MEDICARE, OTHER ==
[~2020-10-15] MED LIST changes: -ALBUMIN HUMAN 25% 50 ML in EMPTY BAG 1 BAG IVPB SCH; +ALBUTEROL NEBULIZED 2.5 MG/3 ML INHALATION ONE; +[UNRECOGNIZED DRUG - OTHER] INHALATION ONE
[2020-10-15 14:10] VITALS: PULSE 72
== END | disposition home or self-care (01) ==
LOC: CPPFTMAIN 13:16
PROVIDERS: ATTEND Internal Medicine
DX: Z48.24 Encounter for aftercare following lung transplant (principal); Z94.2 Lung transplant status
CPT/HCPCS: 94640; 94642

== ENCOUNTER 2020-10-26 09:13 | Inpatient (IN) | payer MEDICARE, OTHER ==
[2020-10-26] MEDS ORDERED: IPRATROPIUM-ALBUTEROL 3 ML NEB INHALATION STA (09:27)
--- NOTE | 2020-10-26 09:32 | ED ---
General Adult HPI - General Chief complaint: Shortness of Breath Stated complaint: BREONNA Time Seen by Provider: 10/26/20 09:15 Source: patient, EMS, RN notes reviewed Mode of arrival: EMS Limitations: no limitations - History of Present Illness Initial comments: Patient is a pleasant 70-year-old male presenting to the emergency department with difficulty in breathing. Patient is post-lung transplant 12-13 years ago. Symptoms started a few days ago. Patient does have cough with productive white sputum. No fevers. Symptoms improved somewhat with nebulizer treatment by EMS. Oxygen was low, in the 70s by EMS. Patient does not wear oxygen at home. No chest pain. No leg pain or leg swelling. - Related Data Home Medications Medication Instructions Recorded Confirmed Alendronate Sodium [Fosamax] 70 mg PO WE 11/06/13 10/14/20 Ergocalciferol (Vitamin D2) 50,000 units PO Q15D 11/06/13 10/14/20 [Drisdol] Fludrocortisone [Florinef] 0.1 mg PO DAILY 11/06/13 10/14/20 Metoprolol Succinate (ER) [Toprol 100 mg PO DAILY 11/06/13 10/14/20 XL] Tacrolimus [Prograf] 2 mg PO BID 11/06/13 10/14/20 Multivitamins, Thera [Multivitamin 1 tab PO DAILY 07/23/16 10/14/20 (formulary)] Ferrous Sulfate [Iron (65 MG 325 mg PO DAILY 09/29/16 10/14/20 Elemental)] Allopurinol [Zyloprim] 100 mg PO DAILY 05/06/17 10/14/20 Metoclopramide [Reglan] 10 mg PO DAILY 05/06/17 10/14/20 amLODIPine [Norvasc] 10 mg PO DAILY 05/06/17 10/14/20 Omeprazole [PriLOSEC] 40 mg PO BID 03/02/18 10/14/20 Sertraline [Zoloft] 50 mg PO DAILY 03/02/18 10/14/20 Tacrolimus [Prograf] 0.5 mg PO BID 08/16/19 10/14/20 Tamsulosin HCl [Flomax] 0.4 mg PO DAILY 08/16/19 10/14/20 Atorvastatin [Lipitor] 10 mg PO DAILY 05/30/20 10/14/20 Sodium Bicarbonate 650 mg PO BID 08/05/20 10/14/20 HYDROcodone/APAP 5-325MG [[place] 1 tab PO TID PRN 08/15/20 10/14/20 5-325] Insulin Detemir [Levemir Flextouch] 20 unit SQ BID 09/05/20 10/14/20 Azithromycin [Zithromax] 250 mg PO MOWEFR 09/30/20 10/14/20 Furosemide [Lasix] 40 mg PO Q48H 09/30/20 10/14/20 Previous Rx's Medication Instructions Recorded predniSONE 5 mg PO DAILY #0 08/21/19 Allergies Allergy/AdvReac Type Severity Reaction Status Date / Time clarithromycin [From Biaxin] AdvReac instructed Verified 10/14/20 12:51 not to take r/t lung transplant grapefruit AdvReac Unknown Verified 10/14/20 12:51 ibuprofen [From Motrin] AdvReac Abdominal Verified 10/14/20 12:51 Pain orange juice AdvReac Unknown Verified 10/14/20 12:51 Review of Systems ROS Statement: Those systems with pertinent positive or pertinent negative responses have been documented in the HPI. ROS Other: All systems not noted in ROS Statement are negative. Constitutional: Denies: fever Eyes: Denies: eye pain ENT: Denies: ear pain Respiratory: Reports: cough, dyspnea Cardiovascular: Denies: chest pain Endocrine: Reports: fatigue Gastrointestinal: Denies: abdominal pain Genitourinary: Denies: urgency Musculoskeletal: Denies: back pain Skin: Denies: rash Neurological: Denies: weakness Past Medical History Past Medical History: COPD, Diabetes Mellitus, GERD/Reflux, Osteoarthritis (OA), Pneumonia, Prostate Disorder, Renal Disease, Respiratory Disorder Additional Past Medical History / Comment(s): recent admission with pneumonia, History of COPD and pulmonary fibrosis. The patient underwent bilateral lung transplantation and 2008. He has diabetes, chronic arthritis with back pain, degenerative disc disease, chronic stage III kidney disease, chronic hypogam maglobulinemia and the patient is receiving IVIG treatment on outpatient basis and the last treatment was in June 2019, left lung pneumonia in July 2019 requiring hospitalization, cirrhosis of the liver History of Any Multi-Drug Resistant Organisms: None Reported Past Surgical History: Heart Catheterization, Hernia Repair Additional Past Surgical History / Comment(s): RT & LT CATARACT REMOVED/COLONOSCOPY/BILATERAL LUNG TRANSPLANT 20082013 HERNIA REPAIR UMBILICAL, LEFT INGUINAL AND FEMEROL. TURP - 2015, paracentesis 08/06/20 Past Anesthesia/Blood Transfusion Reactions: No Reported Reaction Past Psychological History: Anxiety, Depression Smoking Status: Former smoker Past Alcohol Use History: None Reported Past Drug Use History: None Reported - Past Family History Mother Family Medical History: No Reported History Additional Family Medical History / Comment(s): Mother at age 73 from asthma or COPD. Father Family Medical History: Asthma, Pneumonia Additional Family Medical History / Comment(s): Father at age 68 from a sthma. Brother(s) Additional Family Medical History / Comment(s): Patient states he has 6 brothers and 5 sisters and is not sure of their medical history. Some have passed. Patient has one daughter with no major medical problems. General Exam Limitations: no limitations General appearance: alert, in no apparent distress Head exam: Present: normocephalic Eye exam: Present: normal appearance Neck exam: Present: normal inspection Respiratory exam: Present: rales Cardiovascular Exam: Present: tachycardia GI/Abdominal exam: Present: soft. Absent: tenderness Extremities exam: Present: pedal edema (Minimal bilateral). Absent: calf tenderness Neurological exam: Present: alert Psychiatric exam: Present: normal affect, normal mood Skin exam: Present: normal color Course Vital Signs 10/26/20 10/26/20 10/26/20 09:15 09:49 09:59 Temperature 97.8 F Pulse Rate 72 70 70 Respiratory 24 Rate Blood Pressure 101/51 O2 Sat by Pulse 92 L Oximetry 10/26/20 11:19 Temperature Pulse Rate 80 Respiratory 18 Rate Blood Pressure 108/58 O2 Sat by Pulse 90 L Oximetry - Reevaluation(s) Reevaluation #1: 10/26/20 11:20 Patient reevaluated and updated. Case was discussed with Dr. Baker, who will consult. Pulmonary and Dr. Cervantes have been paged. 10/26/20 11:21 Case was discussed with Dr. Posada, who will consult. 10/26/20 11:30 Case was also discussed with Dr. Alaniz, who will admit his patient and come evaluate. EKG Findings - EKG Comments: EKG Findings:: Sinus rhythm with a rate of 72. Premature atrial complex is. HI 176. QRS 156. QT 446. QTc 488. Left axis. Right bundle branch block. LVH with repolarization change. Medical Decision Making - Lab Data Result diagrams: 10/26/20 09:48 10/26/20 09:47 Lab Results 10/26/20 10/26/20 10/26/20 Range/Units 09:45 09:47 09:47 WBC (3.8-10.6) k/uL RBC (4.30-5.90) m/uL Hgb (13.0-17.5) gm/dL Hct (39.0-53.0) % MCV (80.0-100.0) fL MCH (25.0-35.0) pg MCHC (31.0-37.0) g/dL RDW (11.5-15.5) % Plt Count (150-450) k/uL MPV Neutrophils % % Lymphocytes % % Monocytes % % Eosinophils % % Basophils % % Neutrophils # (1.3-7.7) k/uL Lymphocytes # (1.0-4.8) k/uL Monocytes # (0-1.0) k/uL Eosinophils # (0-0.7) k/uL Basophils # (0-0.2) k/uL Hypochromasia PT 12.8 H (9.0-12.0) sec INR 1.2 H (<1.2) APTT 26.9 (22.0-30.0) sec Sodium 135 L (137-145) mmol/L Potassium 4.9 (3.5-5.1) mmol/L Chloride 102 (98-107) mmol/L Carbon Dioxide 25 (22-30) mmol/L Anion Gap 8 mmol/L BUN 57 H (9-20) mg/dL Creatinine 2.69 H (0.66-1.25) mg/dL Est GFR (CKD-EPI)AfAm 26 (>60 ml/min/1.73 sqM) Est GFR (CKD-EPI)NonAf 23 (>60 ml/min/1.73 sqM) Glucose 86 (74-99) mg/dL Plasma Lactic Acid Jaden (0.7-2.0) mmol/L Calcium 8.2 L (8.4-10.2) mg/dL Total Bilirubin 0.6 (0.2-1.3) mg/dL AST 101 H (17-59) U/L ALT 45 (4-49) U/L Alkaline Phosphatase 147 H (38-126) U/L Troponin I (0.000-0.034) ng/mL NT-Pro-B Natriuret Pep pg/mL Total Protein 5.4 L (6.3-8.2) g/dL Albumin 2.9 L (3.5-5.0) g/dL Influenza Type A (PCR) Not Detected (Not Detectd) Influenza Type B (PCR) Not Detected (Not Detectd) RSV (PCR) Not Detected (Not Detectd) SARS-CoV-2 (PCR) Not Detected (Not Detectd) 10/26/20 10/26/20 10/26/20 Range/Units 09:47 09:47 09:47 WBC (3.8-10.6) k/uL RBC (4.30-5.90) m/uL Hgb (13.0-17.5) gm/dL Hct (39.0-53.0) % MCV (80.0-100.0) fL MCH (25.0-35.0) pg MCHC (31.0-37.0) g/dL RDW (11.5-15.5) % Plt Count (150-450) k/uL MPV Neutrophils % % Lymphocytes % % Monocytes % % Eosinophils % % Basophils % % Neutrophils # (1.3-7.7) k/uL Lymphocytes # (1.0-4.8) k/uL Monocytes # (0-1.0) k/uL Eosinophils # (0-0.7) k/uL Basophils # (0-0.2) k/uL Hypochromasia PT (9.0-12.0) sec INR (<1.2) APTT (22.0-30.0) sec Sodium (137-145) mmol/L Potassium (3.5-5.1) mmol/L Chloride (98-107) mmol/L Carbon Dioxide (22-30) mmol/L Anion Gap mmol/L BUN (9-20) mg/dL Creatinine (0.66-1.25) mg/dL Est GFR (CKD-EPI)AfAm (>60 ml/min/1.73 sqM) Est GFR (CKD-EPI)NonAf (>60 ml/min/1.73 sqM) Glucose (74-99) mg/dL Plasma Lactic Acid Jaden 2.4 H* (0.7-2.0) mmol/L Calcium (8.4-10.2) mg/dL Total Bilirubin (0.2-1.3) mg/dL AST (17-59) U/L ALT (4-49) U/L Alkaline Phosphatase (38-126) U/L Troponin I 5.140 H* (0.000-0.034) ng/mL NT-Pro-B Natriuret Pep 14117 pg/mL Total Protein (6.3-8.2) g/dL Albumin (3.5-5.0) g/dL Influenza Type A (PCR) (Not Detectd) Influenza Type B (PCR) (Not Detectd) RSV (PCR) (Not Detectd) SARS-CoV-2 (PCR) (Not Detectd) 10/26/20 Range/Units 09:48 WBC 13.8 H (3.8-10.6) k/uL RBC 3.55 L (4.30-5.90) m/uL Hgb 10.7 L (13.0-17.5) gm/dL Hct 34.3 L (39.0-53.0) % MCV 96.6 (80.0-100.0) fL MCH 30.1 (25.0-35.0) pg MCHC 31.1 (31.0-37.0) g/dL RDW 15.9 H (11.5-15.5) % Plt Count 100 L (150-450) k/uL MPV 8.3 Neutrophils % 88 % Lymphocytes % 5 % Monocytes % 4 % Eosinophils % 1 % Basophils % 0 % Neutrophils # 12.2 H (1.3-7.7) k/uL Lymphocytes # 0.7 L (1.0-4.8) k/uL Monocytes # 0.6 (0-1.0) k/uL Eosinophils # 0.1 (0-0.7) k/uL Basophils # 0.0 (0-0.2) k/uL Hypochromasia Moderate PT (9.0-12.0) sec INR (<1.2) APTT (22.0-30.0) sec Sodium (137-145) mmol/L Potassium (3.5-5.1) mmol/L Chloride (98-107) mmol/L Carbon Dioxide (22-30) mmol/L Anion Gap mmol/L BUN (9-20) mg/dL Creatinine (0.66-1.25) mg/dL Est GFR (CKD-EPI)AfAm (>60 ml/min/1.73 sqM) Est GFR (CKD-EPI)NonAf (>60 ml/min/1.73 sqM) Glucose (74-99) mg/dL Plasma Lactic Acid Jaden (0.7-2.0) mmol/L Calcium (8.4-10.2) mg/dL Total Bilirubin (0.2-1.3) mg/dL AST (17-59) U/L ALT (4-49) U/L Alkaline Phosphatase (38-126) U/L Troponin I (0.000-0.034) ng/mL NT-Pro-B Natriuret Pep pg/mL Total Protein (6.3-8.2) g/dL Albumin (3.5-5.0) g/dL Influenza Type A (PCR) (Not Detectd) Influenza Type B (PCR) (Not Detectd) RSV (PCR) (Not Detectd) SARS-CoV-2 (PCR) (Not Detectd) - Radiology Data Radiology results: image reviewed (Chest x-ray shows diffuse right greater than left infiltrates) Critical Care Time Critical Care Time: Yes Total Critical Care Time: 32 Disposition Clinical Impression: Congestive heart failure, NSTEMI (non-ST elevated myocardial infarction), Lung transplant recipient, Pulmonary edema Disposition: ADMITTED IP TO THIS [facility] Condition: Serious Decision Time: 11:22
[2020-10-26 10:19] LABS: Basophils % (A) 0 %; Eosinophils # (A) 0.1 k/uL (0-0.7); Eosinophils % (A) 1 %; HCT 34.3 % (39.0-53.0); HGB 10.7 gm/dL (13.0-17.5); Hypochromasia Moderate; Lymphocytes # (A) 0.7 k/uL (1.0-4.8); Lymphocytes % (A) 5 %; MCH 30.1 pg (25.0-35.0); MCHC 31.1 g/dL (31.0-37.0); MCV 96.6 fL (80.0-100.0); Mean Platelet Volume 8.3; Monocytes # (A) 0.6 k/uL (0-1.0); Monocytes % (A) 4 %; Neutrophils # (A) 12.2 k/uL (1.3-7.7); Neutrophils % (A) 88 %; Platelet Count 100 k/uL (150-450); RBC 3.55 m/uL (4.30-5.90); RDW 15.9 % (11.5-15.5); WBC 13.8 k/uL (3.8-10.6)
[2020-10-26 10:22] LABS: Albumin 2.9 g/dL (3.5-5.0); Calcium 8.2 mg/dL (8.4-10.2); Potassium 4.9 mmol/L (3.5-5.1); Total Bilirubin 0.6 mg/dL (0.2-1.3); Total Protein 5.4 g/dL (6.3-8.2)
[2020-10-26 10:23] LABS: INR 1.2 (<1.2); Partial Thromboplastin Time 26.9 sec (22.0-30.0); Prothrombin Time 12.8 sec (9.0-12.0)
--- NOTE | 2020-10-26 10:24 | XR ---
EXAMINATION TYPE: XR chest 2V DATE OF EXAM: 10/26/2020 COMPARISON: 10/03/2020 HISTORY: Pneumonia TECHNIQUE: Frontal and lateral views of the chest are obtained. FINDINGS: There are diffuse partially consolidative opacities in both lungs right much greater than left. There is pleural thickening/loculated pleural fluid along the right lateral thorax which was se en previously. The heart size is enlarged. The osseous structures are intact. IMPRESSION: Diffuse bilateral lung infiltrates right greater than left with right pleural thickening /loculated pleural effusion. No significant interval change.
[2020-10-26] MEDS ORDERED: ASPIRIN 325 MG TAB PO STA (11:05)
[2020-10-26] MEDS ORDERED: HEPARIN SODIUM 1,000 UN/ML (10ML VL) IV ONE (11:06)
[2020-10-26] MEDS ORDERED: IPRATROPIUM-ALBUTEROL 3 ML NEB INHALATION PRN (11:23)
[2020-10-26] MEDS: HEPARIN SOD,PORK IN 0.45% NACL 25,000 UNIT in 0.45% NACL 1 250ML.BAG IV SCH (11:36)
--- NOTE | 2020-10-26 13:07 | P.CNPUL ---
History of Present Illness Consult date: 10/26/20 Requesting physician: Reinaldo Alaniz Reason for consult: dyspnea, abnormal CXR/CT Chief complaint: Shortness of breath History of present illness: This is a very pleasant 70-year-old gentleman with a known history of chronic back pain, anemia, chronic kidney disease stage III, diabetes mellitus, acute hypoxemic respiratory failure, recurrent ascites with paracentesis required nearly every 2 weeks. Last paracentesis here 10/14/2020 with 6.1 L removed, immunosuppressive therapy treated with Prograf and prednisone secondary to transplanted lungs back in 2008. He had complications of COPD and pulmonary fibrosis. He follows with Dr. Syed in our office for the same. He was hospitalized earlier this month for right lower lobe pneumonia. He was seen in the office on 10/17/2020 and at that time his follow-up chest x-ray showed no acute abnormalities. There was some transplanted changes and chronic pleural thickening along the right heart border. He presented to the emergency room again earlier this morning with complaints of increasing shortness of breath, cough and congestion. Chest x-ray again shows diffuse bilateral infiltrates right greater than left with right pleural thickening/loculated effusion. No significant change compared to x-ray on 10/03/2020. White count 13.8. Hemoglobin 10.7. Platelets 100,000. INR 1.2. Sodium 135. Potassium 4.9. Creatinine 2.69. Lactic acid 2.4. AST 101. ALT 45. Troponin 5.14. ProBNP 28,700. Influenza screen negative. COVID-19 screen negative. He is seen today in consultation in the emergency room. He is currently sitting up in the stretcher. Awake and alert. He does have a loose nonproductive cough. Maintaining O2 saturations in the 90s on 4 L/m per nasal cannula. He is afebrile. EKG reveals a right bundle branch block pattern cannot rule out septal or lateral infarct. He has been initiated on a heparin drip. DuoNeb inhalations, IV Lasix. Review of Systems REVIEW OF SYSTEMS: CONSTITUTIONAL: Denies weakness, fatigue Denies any recent significant weight loss or weight gain. EYES: Denies change in vision. EARS, NOSE, MOUTH, THROAT: Denies headaches, denies sore throat. CARDIOVASCULAR: Denies chest pain, palpitations or syncopal episodes. RESPIRATORY: As noted for shortness of breath, cough, congestion no hemoptysis. GASTROINTESTINAL: Denies change in appetite, denies abdominal pain GENITOURINARY: Denies hematuria, denies infections. MUSKULOSKELETAL: Denies pain, denies swelling. INTEGUMENTARY: Denies rash, denies eczema. NEUROLOGICAL: Denies recent memory loss, no recent seizure activity. PSYCHIATRIC: Denies anxiety, denies depression. HEMATOLOGIC/LYMPHATIC: Denies anemia, denies enlarged lymph nodes. Past Medical History Past Medical History: COPD, Diabetes Mellitus, GERD/Reflux, Osteoarthritis (OA), Pneumonia, Prostate Disorder, Renal Disease, Respiratory Disorder Additional Past Medical History / Comment(s): recent admission with pneumonia, History of COPD and pulmonary fibrosis. The patient underwent bilateral lung transplantation and 2008. He has diabetes, chronic arthritis with back pain, degenerative disc disease, chronic stage III kidney disease, chronic hypogammaglobulinemia and the patient is receiving IVIG treatment on outpatient basis and the last treatment was in June 2019, left lung pneumonia in July 2019 requiring hospitalization, cirrhosis of the liver History of Any Multi-Drug Resistant Organisms: None Reported Past Surgical History: Heart Catheterization, Hernia Repair Additional Past Surgical History / Comment(s): RT & LT CATARACT REMOVED/COLONOSCOPY/BILATERAL LUNG TRANSPLANT 20082013 HERNIA REPAIR UMBILICAL, LEFT INGUINAL AND FEMEROL. TURP - 2015, paracentesis 08/06/20 Past Anesthesia/Blood Transfusion Reactions: No Reported Reaction Past Psychological History: Anxiety, Depression Smoking Status: Former smoker Past Alcohol Use History: None Reported Past Drug Use History: None Reported - Past Family History Mother Family Medical History: No Reported History Additional Family Medical History / Comment(s): Mother at age 73 from asthma or COPD. Father Family Medical History: Asthma, Pneumonia Additional Family Medical History / Comment(s): Father at age 68 from asthma. Brother(s) Additional Family Medical History / Comment(s): Patient states he has 6 brothers and 5 sisters and is not sure of their medical history. Some have passed. Patient has one daughter with no major medical problems. Medications and Allergies Home Medications Medication Instructions Recorded Confirmed Type Alendronate Sodium [Fosamax] 70 mg PO WE 11/06/13 10/26/20 History Ergocalciferol (Vitamin D2) 50,000 units PO Q15D 11/06/13 10/26/20 History [Drisdol] Fludrocortisone [Florinef] 0.1 mg PO DAILY 11/06/13 10/26/20 History Metoprolol Succinate (ER) [Toprol 100 mg PO DAILY 11/06/13 10/26/20 History XL] Tacrolimus [Prograf] 2 mg PO BID 11/06/13 10/26/20 History Multivitamins, Thera [Multivitamin 1 tab PO DAILY 07/23/16 10/26/20 History (formulary)] Ferrous Sulfate [Iron (65 MG 325 mg PO DAILY 09/29/16 10/26/20 History Elemental)] Allopurinol [Zyloprim] 100 mg PO DAILY 05/06/17 10/26/20 History Metoclopramide [Reglan] 10 mg PO DAILY 05/06/17 10/26/20 History amLODIPine [Norvasc] 10 mg PO DAILY 05/06/17 10/26/20 History Omeprazole [PriLOSEC] 40 mg PO BID 03/02/18 10/26/20 History Sertraline [Zoloft] 50 mg PO DAILY 03/02/18 10/26/20 History Tacrolimus [Prograf] 0.5 mg PO BID 08/16/19 10/26/20 History Tamsulosin HCl [Flomax] 0.4 mg PO DAILY 08/16/19 10/26/20 History predniSONE 5 mg PO DAILY #0 08/21/19 10/26/20 Rx Atorvastatin [Lipitor] 10 mg PO DAILY 05/30/20 10/26/20 History Sodium Bicarbonate 650 mg PO BID 08/05/20 10/26/20 History HYDROcodone/APAP 5-325MG [[place] 1 tab PO TID PRN 08/15/20 10/26/20 History 5-325] Insulin Detemir [Levemir Flextouch] 20 unit SQ BID 09/05/20 10/26/20 History Azithromycin [Zithromax] 250 mg PO MOWEFR 09/30/20 10/26/20 History Furosemide [Lasix] 40 mg PO Q48H 09/30/20 10/26/20 History Losartan Potassium 50 mg PO DAILY 10/26/20 10/26/20 History Allergies Allergy/AdvReac Type Severity Reaction Status Date / Time clarithromycin [From Biaxin] AdvReac instructed Verified 10/26/20 11:44 not to take r/t lung transplant grapefruit AdvReac Unknown Verified 10/26/20 11:44 ibuprofen [From Motrin] AdvReac Abdominal Verified 10/26/20 11:44 Pain orange juice AdvReac Unknown Verified 10/26/20 11:44 Physical Exam Vitals: Vital Signs Temp Pulse Resp BP Pulse Ox 10/26/20 11:19 80 18 108/58 90 L 10/26/20 09:59 70 10/26/20 09:49 70 10/26/20 09:15 97.8 F 72 24 101/51 92 L Intake and Output 10/25/20 10/26/20 10/26/20 22:59 06:59 14:59 Other: Weight 63.503 kg GENERAL EXAM: Alert, very pleasant 70-year-old gentleman, on 4 L nasal cannula, frail, cachectic, fairly comfortable in no apparent distress. HEAD: Normocephalic. EYES: Normal reaction of pupils, equal size. NOSE: Clear with pink turbinates. THROAT: No erythema or exudates. NECK: No masses, no JVD. CHEST: No chest wall deformity. LUNGS: Equal air entry with bilateral scattered rhonchi, crackles in the posterior bases CVS: S1 and S2 normal with no audible murmur, regular rhythm. ABDOMEN: Stented, ascites, fluid wave. Normal bowel sounds, no guarding or rigidity. SPINE: Kyphoscoliosis SKIN: No rashes CENTRAL NERVOUS SYSTEM: No focal deficits, tone is normal in all 4 extremities. EXTREMITIES: There is 2+ peripheral edema. It is of chronic venous stasis. Peripheral pulses are intact. Results - Laboratory Findings CBC and BMP: 10/26/20 09:48 10/26/20 09:47 PT/INR, D-dimer PT 12.8 sec (9.0-12.0) H 10/26/20 09:47 INR 1.2 (<1.2) H 10/26/20 09:47 Abnormal lab findings: Abnormal Labs 10/26/20 10/26/20 10/26/20 09:47 09:47 09:47 WBC RBC Hgb Hct RDW Plt Count Neutrophils # Lymphocytes # PT 12.8 H INR 1.2 H Sodium 135 L BUN 57 H Creatinine 2.69 H Plasma Lactic Acid Jaden 2.4 H* Calcium 8.2 L AST 101 H Alkaline Phosphatase 147 H Troponin I Total Protein 5.4 L Albumin 2.9 L 10/26/20 10/26/20 09:47 09:48 WBC 13.8 H RBC 3.55 L Hgb 10.7 L Hct 34.3 L RDW 15.9 H Plt Count 100 L Neutrophils # 12.2 H Lymphocytes # 0.7 L PT INR Sodium BUN Creatinine Plasma Lactic Acid Jaden Calcium AST Alkaline Phosphatase Troponin I 5.140 H* Total Protein Albumin - Diagnostic Findings Chest x-ray: image reviewed Assessment and Plan Assessment: 1 Acute on chronic hypoxemic respiratory failure secondary to suspected acute bilateral pneumonia, pulmonary edema, congestive heart failure 2 Acute non-ST segment elevation myocardial infarction 3 Recurrent pneumonias secondary to immunosuppressed state 4 History of bilateral lung transplant in 2008 maintained on Prograf and prednisone in the outpatient setting 5 History of hypogammaglobulinemia. 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 Hand Chest x-ray and labs reviewed Check a pro-calcitonin Continue bronchodilators Continue IV diuretics Heparin drip initiated, cardiology consult Prognosis is guarded We will continue to follow and make further recommendations based on his clinical status I, the cosigning physician, performed a history & physical examination of the patient. Lungs sounds scattered rhonchi, crackles in the posterior bases. Maintaining good O2 saturations in the 90s on 4 L/m per nasal cannula. I discussed the assessment and plan of care with my nurse practitioner, Adina Khanna. I attest to the above consultation as dictated by her.
[2020-10-26] MEDS ORDERED: LEVOFLOXACIN 500 MG TAB PO ONE (13:30)
[2020-10-26] MEDS: IPRATROPIUM-ALBUTEROL 3 ML NEB INHALATION SCH ×3 (13:43→19:25)
[2020-10-26] MEDS: FUROSEMIDE 10 MG/ML 4 ML VIAL IV SCH ×2 (14:40→20:16)
[2020-10-26] MEDS: NITROGLYCERIN OINT 1 INCH/GM PACKET TOPICAL SCH ×3 (14:42→21:42)
--- NOTE | 2020-10-26 15:18 | HP ---
HISTORY AND PHYSICAL A 70-year-old white male, chronic back pain, anemia, chronic kidney disease stage 3, diabetes mellitus. He has got ascites and paracentesis every 2 weeks. Had 6 L removed on 10/14/2020. He came with fluid overload with elevated BNP over 30,000. He has COPD, pulmonary fibrosis. White count 13.8, hemoglobin is 10.7. BNP 27,000. He is on 4 L oxygen normally, saturating in the low 90s. He normally does not wear any oxygen at all. REVIEW OF SYMPTOMS: 14-point review of systems: Weakness, fatigue, PND, orthopnea, could not breathe last night. He has got a lot of fluid buildup in his legs he says. Otherwise 14 point review of systems is negative. PAST MEDICAL HISTORY: COPD, diabetes mellitus, GERD, osteoarthritis, pneumonia, prostate disorder, renal disease, COPD, pulmonary fibrosis, degenerative disc disease, chronic kidney disease, stage 3, heart catheterization, hernia repair, bilateral lung transplant, bilateral cataract removal. He has anxiety and depression. He is a former smoker. FAMILY HISTORY: Mother at age 73 from asthma and COPD. Father has asthma and pneumonia. HOME MEDICINES: Include Fosamax 70 mg once a week, vitamin D 50,000 units once a week, Prograf 10 mg b.i.d., Toprol-XL 100 mg daily, Florinef 0.1 mg daily, multivitamin daily, Zyloprim 100 mg daily, Reglan 10 mg daily, Norvasc 10 mg daily, Prilosec 40 mg b.i.d., Zoloft 50 daily, Flomax 0.4 daily, Prograf 0.5 b.i.d., prednisone 5 mg daily, Lipitor 10 daily, sodium bicarb 650 mg b.i.d., [place] 5/325 t.i.d., Levemir 20 units subcutaneously b.i.d., Lasix 40 every 48 hours, losartan 50 daily. ALLERGIES: IBUPROFEN, GRAPEFRUIT, ORANGE JUICE. PHYSICAL EXAMINATION: VITAL SIGNS: Temperature 97.8, pulse 72-80, respiratory 18-24, blood pressure 101 to 108 over 50s to 80s, O2 90 to 92% on room air. GENERAL: He is alert, oriented, on 4 L. He is frail, cachectic, long cannon, disheveled. HEENT: Normocephalic, atraumatic. ABDOMEN: Distended due to positive fluid wave and ascites. LUNGS: Scattered rhonchi and wheeze. EXTREMITIES: Show 2 to 3+ pedal edema with stasis changes. Possible cellulitis of the lower legs. NEUROLOGIC: He moves all 4 extremities. LABORATORY DATA: Hemoglobin is 10.7, white count 13.3, BUN is 27, creatinine 2.59. ASSESSMENT: 1. Acute on chronic hypoxic respiratory failure secondary to bilateral pneumonia, pulmonary edema, congestive heart failure, acute non STEMI, elevated myocardial infarction, recurrent pneumonia, immunosuppression, bilateral lung transplant 2008. Remains on Prograf, prednisone. 2. Type 2 diabetes mellitus. 3. Chronic kidney disease, stage 3. 4. Hypogammaglobulinemia. 5. Thrombocytopenia. 6. Anemia. 7. Chronic back pain. 8. Cirrhosis of the liver. 9. Frequent paracentesis every 2 weeks. 10.Hypertension. 11.Benign prostatic hypertrophy. 12.Gout. Prognosis extremely guarded. Broad-spectrum antibiotics. Pulmonary and cardiology consults. Please see further orders. MMODL / IJN: [id number] /
[2020-10-26 17:17] LABS: Appearance,Urine Clear (Clear); Bilirubin,Urine Negative (Negative); Blood,Urine Negative (Negative); Color,Urine Yellow; Glucose,Urine (UA) Negative (Negative); Hyaline Casts,Urine 5 /lpf (0-2); Ketones,Urine Negative (Negative); Leukocyte Esterase,Urine Moderate (Negative); Mucus,Urine Rare /hpf; Nitrite,Urine Negative (Negative); Protein,Urine Trace (Negative); RBC,Urine 1 /hpf (0-5); Specific Gravity,Urine 1.013 (1.001-1.035); Squamous Epithelial Cell,Urine 1 /hpf (0-4); Urobilinogen,Urine <2.0 mg/dL (<2.0); WBC,Urine 18 /hpf (0-5)
[2020-10-26 17:22] LABS: Glucose,Whole Blood 179 mg/dL (75-99)
[2020-10-26 17:30] LABS: Creatinine,Urine Random 93.9 mg/dL
--- NOTE | 2020-10-26 18:01 | US ---
EXAMINATION TYPE: US kidneys/renal and bladder DATE OF EXAM: 10/26/2020 COMPARISON: Ultrasound 10/03/2020 CLINICAL HISTORY: obstruction. EXAM MEASUREMENTS: Right Kidney: 9.9 x 5.1 x 5.5 cm Left Kidney: 9.1 x 4.3 x 3.9 cm Right Kidney: No hydronephrosis or masses seen Left Kidney: No hydronephrosis or masses seen Bladder: wnl Bilateral Jets seen: No Incidental note is made of moderate amount of ascites. There is no evidence for hydronephrosis at this point in time. No nephrolithiasis is seen. No lucy s are identified. The urinary bladder is anechoic. Bilateral ureteral jets are seen. IMPRESSION: No evidence of renal mass or obstruction. There is abdominal ascites that is also present on old exam.
[2020-10-26] MEDS: HEPARIN SODIUM 1,000 UN/ML (10ML VL) IV PRN (18:36)
[2020-10-26] MEDS: PANTOPRAZOLE 40 MG TABLET PO SCH (18:36)
[2020-10-26 19:59] LABS: Glucose,Whole Blood 291 mg/dL (75-99)
[2020-10-26] MEDS: TACROLIMUS 1 MG CAP PO SCH (20:15)
[2020-10-26] MEDS: SODIUM BICARBONATE TAB 650 MG TAB PO SCH (20:16)
[2020-10-26] MEDS: TACROLIMUS 0.5 MG CAP PO SCH (20:16)
[2020-10-26] MEDS: INSULIN DETEMIR (LEVEMIR) 100 UNIT/ML SYR SQ SCH (20:16)
[2020-10-26 23:40] LABS: Hemoglobin A1C 6.5 % (4.0-6.0)
--- NOTE | 2020-10-27 00:45 | CONS ---
CONSULTATION DATE OF SERVICE: 10/26/2020 REASON FOR CONSULTATION: Pneumonia. HISTORY OF PRESENT ILLNESS: The patient is a 70-year-old male with a past medical history significant for chronic back pain, acute hypoxemic respiratory failure and recurrent ascites requiring every two weeks. The patient did have a hospitalization hospitalization with the patient treated for right lower lobe pneumonia. Subsequent discharge. Apparently the patient did have an outpatient x-ray that was negative for any acute infiltrate indicating adequate treatment of pneumonia. The patient is now presenting back to [facility] ER early this morning for evaluation of increasing shortness of breath and cough in this patient whose symptoms have been getting worse for the last few days. The patient complaining of shortness of breath on minimal exertion even at rest. The patient also had a cough with moderate intensity. Noted to have some white sputum. No hemoptysis. The patient denies high-grade fever or URI symptoms. No nausea, no vomiting. No abdominal pain. No diarrhea. The patient was noticed to be hypoxic by the EMS with the sats in 70s. The patient was brought to the hospital. On arrival to the ER, the patient was afebrile. He was saturating 92% on arrival to the ER. Patient did have a white count of 13.8 with a left shift. Troponins are elevated. Kidney function, creatinine 2.69. Urine moderate leukocyte esterase with 18 WBC. Dueñas, influenza and RSV PCR were negative. The patient did have a chest x-ray with diffuse bilateral lung infiltrate slightly greater than the left with regular local diffusion. The patient has been admitted to the hospital. Infectious Disease was consulted with concern for possible pneumonia in this patient is currently being treated with Levaquin. REVIEW OF SYSTEMS: Positive points have been mentioned in HPI. Rest of systems are negative. PAST MEDICAL HISTORY: COPD, osteoarthritis, pneumonia and C difficile colitis, diabetes mellitus, history. PAST SURGICAL HISTORY: Heart catheterization, hernia repair, a lung transplant. SOCIAL HISTORY: Remote history of smoking no drinking or drug use. FAMILY HISTORY: Mother history of COPD. Father history of asthma and pneumonia. ALLERGIES: To clarithromycin. MEDICATIONS: The patient is currently on Flomax, Prograf, Zoloft, prednisone, Protonix, Reglan, Cozaar, heparin per weight-based protocol on the left, Lipitor aspirin, [place], DuoNeb and [place]. PHYSICAL EXAMINATION: VITAL SIGNS: Blood pressure 111/59, pulse 81, temperature 97.7. He is 95% on 4 L nasal cannula. General description is an elderly male up in the bed in no distress. No tachypnea or accessory muscles of respiration use. HEENT examination pallor no scleral icterus. Oral mucous membrane is dry., NECK: Trachea central. No thyromegaly. Lungs unlabored breathing. Coarse breath sounds bilaterally. No wheeze. Heart S1, S2. Regular rate and rhythm. ABDOMEN: Soft, no tenderness. Extremities 1+ edema feet. SKIN: No rash or mass palpable. NEUROLOGICAL: Patient is awake, alert, oriented times three. Mood and affect normal. LABS: Hemoglobin is 10.3, white count of 13.8 with a BUN of 57, creatinine 2.69. The fluid has been normal. Yeast, mildly elevated. Troponins are ALL. was elevated. Influenza and PCR have been negative. DIAGNOSTIC IMPRESSION AND PLAN: Patient is hospital with increasing shortness of breath and hypoxemia and cough in this patient did not have a fever. Did have elevated troponin and elevated NT proBNP with concern for possible fluid overload or possible COPD exacerbation with tracheobronchitis rather than pneumonia as the patient is currently not toxic. However, the patient is on immunosuppressive medication that will be concerning. PLAN: 1. We will try to obtain a sputum for culture and culture. 2. Check a procalcitonin level. 3. Continue the Levaquin for now. 4. We will follow on his clinical condition and culture to further adjust medication if needed, thank you for this consultation. Will follow the patient along with you. MMODL / IJN: [id number] /
[2020-10-27] MEDS: HEPARIN SODIUM 1,000 UN/ML (10ML VL) IV PRN (01:35)
[2020-10-27] MEDS: FUROSEMIDE 10 MG/ML 4 ML VIAL IV SCH ×3 (04:22→21:57)
[2020-10-27] MEDS: HYDROcodone/APAP 5-325MG 1 EACH TAB PO PRN ×2 (04:30→23:02)
[2020-10-27] MEDS: PANTOPRAZOLE 40 MG TABLET PO SCH ×2 (06:39→16:06)
[2020-10-27 06:50] LABS: Glucose,Whole Blood 173 mg/dL (75-99)
[2020-10-27] MEDS: IPRATROPIUM-ALBUTEROL 3 ML NEB INHALATION SCH ×4 (08:14→20:13)
[2020-10-27 08:49] LABS: Albumin 2.9 g/dL (3.5-5.0); Calcium 7.8 mg/dL (8.4-10.2); Potassium 4.9 mmol/L (3.5-5.1); Total Bilirubin 0.6 mg/dL (0.2-1.3); Total Protein 5.6 g/dL (6.3-8.2); Uric Acid 7.1 mg/dL (3.5-8.5)
[2020-10-27 08:53] LABS: INR 1.2 (<1.2); Partial Thromboplastin Time 39.4 sec (22.0-30.0); Prothrombin Time 12.6 sec (9.0-12.0)
[2020-10-27] MEDS ORDERED: LOSARTAN 50 MG TAB PO SCH (09:00)
[2020-10-27 09:20] LABS: Basophils % (A) 0 %; Eosinophils % (A) 0 %; HCT 34.1 % (39.0-53.0); HGB 10.4 gm/dL (13.0-17.5); Hypochromasia Slight; Lymphocytes # (A) 0.2 k/uL (1.0-4.8); Lymphocytes % (A) 2 %; MCH 29.4 pg (25.0-35.0); MCHC 30.5 g/dL (31.0-37.0); MCV 96.3 fL (80.0-100.0); Mean Platelet Volume 8.7; Monocytes # (A) 0.3 k/uL (0-1.0); Monocytes % (A) 4 %; Neutrophils # (A) 6.7 k/uL (1.3-7.7); Neutrophils % (A) 94 %; RBC 3.53 m/uL (4.30-5.90); RDW 15.8 % (11.5-15.5); WBC 7.1 k/uL (3.8-10.6)
[2020-10-27] MEDS: SODIUM BICARBONATE TAB 650 MG TAB PO SCH ×2 (09:42→21:58)
[2020-10-27] MEDS: SERTRALINE 50 MG TAB PO SCH (09:42)
[2020-10-27] MEDS: amLODIPine 10 MG TAB PO SCH (09:42)
[2020-10-27] MEDS: INSULIN DETEMIR (LEVEMIR) 100 UNIT/ML SYR SQ SCH ×2 (09:42→21:58)
[2020-10-27] MEDS: METOCLOPRAMIDE 10 MG TAB PO SCH (09:42)
[2020-10-27] MEDS: METOPROLOL SUCCINATE (ER) 100 MG TAB.ER.24H PO SCH (09:42)
[2020-10-27] MEDS: ATORVASTATIN 10 MG TAB PO SCH (09:42)
[2020-10-27] MEDS: MULTIVITAMINS, THERA 1 EACH TAB PO SCH (09:42)
[2020-10-27] MEDS: NITROGLYCERIN OINT 1 INCH/GM PACKET TOPICAL SCH ×3 (09:42→21:58)
[2020-10-27] MEDS: TAMSULOSIN 0.4 MG CAP.ER.24H PO SCH (09:42)
[2020-10-27] MEDS: LEVOFLOXACIN 250 MG TAB PO SCH (09:44)
[2020-10-27] MEDS: FLUDROCORTISONE 0.1 MG TAB PO SCH (09:44)
[2020-10-27] MEDS: predniSONE 5 MG TAB PO SCH (09:45)
[2020-10-27] MEDS: TACROLIMUS 1 MG CAP PO SCH ×2 (09:45→22:00)
[2020-10-27 09:48] LABS: Platelet Count 83 k/uL (150-450)
[2020-10-27 12:03] LABS: Glucose,Whole Blood 188 mg/dL (75-99)
--- NOTE | 2020-10-27 13:29 | P.NPCON ---
History of Present Illness - Reason for Consult Consult date: 10/27/20 acute renal failure - Chief Complaint Shortness of breath - History of Present Illness Coming to the hospital with shortness of breath. Recently in the hospital with similar complaints, had acute kidney injury. Creatinine lately around 1.9-2.1 MG per DL. He presented with a creatinine of 2.5 currently stable today. He had abdominal distention with ascites recently had paracentesis with 6 L of fluid removed. Denies any nausea vomiting or diarrhea. Decreased urine output. Home medications include Lasix and Cozaar. He also had lung transplant currently on Prograf and prednisone. Review of Systems Constitutional: Reports as per HPI Past Medical History Past Medical History: COPD, Diabetes Mellitus, GERD/Reflux, Osteoarthritis (OA), Pneumonia, Prostate Disorder, Renal Disease, Respiratory Disorder Additional Past Medical History / Comment(s): recent admission with pneumonia, H istory of COPD and pulmonary fibrosis. The patient underwent bilateral lung transplantation and 2008. He has diabetes, chronic arthritis with back pain, degenerative disc disease, chronic stage III kidney disease, chronic hypogammaglobulinemia and the patient is receiving IVIG treatment on outpatient basis and the last treatment was in June 2019, left lung pneumonia in July 2019 requiring hospitalization, cirrhosis of the liver History of Any Multi-Drug Resistant Organisms: None Reported Past Surgical History: Heart Catheterization, Hernia Repair Additional Past Surgical History / Comment(s): RT & LT CATARACT REMOVED/COLONOSCOPY/BILATERAL LUNG TRANSPLANT 20082013 HERNIA REPAIR UMBILICAL, LEFT INGUINAL AND FEMEROL. TURP - 2015, paracentesis 08/06/20 Past Anesthesia/Blood Transfusion Reactions: No Reported Reaction Past Psychological History: Anxiety, Depression Smoking Status: Former smoker Past Alcohol Use History: None Reported Additional Past Alcohol Use History / Comment(s): Patient was a smoker one and half to 2 packs per day starting at the age of 12 and quit at approximately age 43. He denies any marijuana, illicit drug use or alcohol use. He lives with his girlfriend. Patient does not have oxygen at home. Past Drug Use History: None Reported - Past Family History Mother Family Medical History: No Reported History Additional Family Medical History / Comment(s): Mother at age 73 from asthma or COPD. Father Family Medical History: Asthma, Pneumonia Additional Family Medical History / Comment(s): Father at age 68 from asthma. Brother(s) Additional Family Medical History / Comment(s): Patient states he has 6 brothers and 5 sisters and is not sure of their medical history. Some have passed. Patient has one daughter with no major medical problems. Medications and Allergies Home Medications Medication Instructions Recorded Confirmed Type Alendronate Sodium [Fosamax] 70 mg PO WE 11/06/13 10/26/20 History Ergocalciferol (Vitamin D2) 50,000 units PO Q15D 11/06/13 10/26/20 History [Drisdol] Fludrocortisone [Florinef] 0.1 mg PO DAILY 11/06/13 10/26/20 History Metoprolol Succinate (ER) [Toprol 100 mg PO DAILY 11/06/13 10/26/20 History XL] Tacrolimus [Prograf] 2 mg PO BID 11/06/13 10/26/20 History Multivitamins, Thera [Multivitamin 1 tab PO DAILY 07/23/16 10/26/20 History (formulary)] Ferrous Sulfate [Iron (65 MG 325 mg PO DAILY 09/29/16 10/26/20 History Elemental)] Allopurinol [Zyloprim] 100 mg PO DAILY 05/06/17 10/26/20 History Metoclopramide [Reglan] 10 mg PO DAILY 05/06/17 10/26/20 History amLODIPine [Norvasc] 10 mg PO DAILY 05/06/17 10/26/20 History Omeprazole [PriLOSEC] 40 mg PO BID 03/02/18 10/26/20 History Sertraline [Zoloft] 50 mg PO DAILY 03/02/18 10/26/20 History Tacrolimus [Prograf] 0.5 mg PO BID 08/16/19 10/26/20 History Tamsulosin HCl [Flomax] 0.4 mg PO DAILY 08/16/19 10/26/20 History predniSONE 5 mg PO DAILY #0 08/21/19 10/26/20 Rx Atorvastatin [Lipitor] 10 mg PO DAILY 05/30/20 10/26/20 History Sodium Bicarbonate 650 mg PO BID 08/05/20 10/26/20 History HYDROcodone/APAP 5-325MG [[place] 1 tab PO TID PRN 08/15/20 10/26/20 History 5-325] Insulin Detemir [Levemir Flextouch] 20 unit SQ BID 09/05/20 10/26/20 History Azithromycin [Zithromax] 250 mg PO MOWEFR 09/30/20 10/26/20 History Furosemide [Lasix] 40 mg PO Q48H 09/30/20 10/26/20 History Losartan Potassium 50 mg PO DAILY 10/26/20 10/26/20 History Allergies Allergy/AdvReac Type Severity Reaction Status Date / Time clarithromycin [From Biaxin] AdvReac instructed Verified 10/26/20 11:44 not to take r/t lung transplant grapefruit AdvReac Unknown Verified 10/26/20 11:44 ibuprofen [From Motrin] AdvReac Abdominal Verified 10/26/20 11:44 Pain orange juice AdvReac Unknown Verified 10/26/20 11:44 Physical Exam Vitals: Vital Signs Temp Pulse Pulse Resp BP BP Pulse Ox 10/27/20 12:06 80 10/27/20 11:55 80 10/27/20 09:42 97.8 F 88 20 123/75 98 10/27/20 08:27 80 10/27/20 08:14 80 10/27/20 04:00 98.1 F 95 20 126/64 97 10/27/20 00:00 97.9 F 80 20 114/55 96 10/26/20 20:00 97.7 F 81 22 111/59 95 10/26/20 19:34 80 10/26/20 19:26 80 10/26/20 18:52 97.9 F 91 20 145/65 92 L 10/26/20 16:12 84 10/26/20 16:01 84 10/26/20 15:30 20 10/26/20 14:44 83 18 108/58 89 L Intake and Output 10/26/20 10/27/20 10/27/20 22:59 06:59 14:59 Intake Total 52.324 66.516 118 Output Total 255 600 Balance -202.676 -533.484 118 Intake: Intake, IV Titration 52.324 66.516 Amount Heparin Sod,Pork in 0.45% 52.324 66.516 NaCl 25,000 unit In 0.45 % NaCl 1 250ml.bag @ 12 UNITS/KG/HR 7.62 mls/hr IV .Q24H [facility] Rx#: [id number] Oral 0 118 Output: Urine 215 600 Post Void Residual 40 Other: Voiding Method Urinal Urinal Urinal Weight 77.8 kg 77 kg No acute distress S1-S2 heard Decreased breath sounds Abdomen distended Edema Results - Lab Results Most recent lab results Calcium 7.8 mg/dL (8.4-10.2) L 10/27/20 08:00 10/27/20 08:00 10/27/20 08:00 Assessment and Plan Assessment: #1 acute kidney injury secondary to hemodynamic ATN. #2 decompensated liver disease with ascites. #3 chronic kidney disease stage IV with baseline creatinine around 1.9-2.1 MG per DL. #4 status post lung transplant on immunosuppression #5 hypervolemic hyponatremia Plan: #1 renal function stable. Continue with Lasix 40 mg every 8 hours. #2 discontinue Cozaar. Follow-up on Prograf levels. #3 renal ultrasound no hydronephrosis. #4 consider thoracentesis with distended abdomen. #5 avoid nephrotoxic agents and hypotensive episodes.
[2020-10-27] MEDS: TACROLIMUS 0.5 MG CAP PO SCH ×2 (15:59→22:00)
[2020-10-27] MEDS: HEPARIN SOD,PORK IN 0.45% NACL 25,000 UNIT in 0.45% NACL 1 250ML.BAG IV SCH (15:59)
--- NOTE | 2020-10-27 16:02 | P.PN ---
Subjective Progress Note Date: 10/27/20 Principal diagnosis: Non-ST elevated myocardial infarction This is a 52-year-old male, sent to the emergency department on October 21, for chest pain. The patient apparently was evaluated and found to have a non-ST segment elevation myocardial infarction. The patient also apparently has a history of hypertension, hyperlipidemia, insulin-dependent diabetes mellitus, chronic tobacco use and possible COPD, peripheral artery disease, previous history of left lower extremity DVT, and apparently a history of PE. Anyway, the patient was evaluated and found to have significant coronary disease. He did smoke for 40 years at 1-1-1/2 packs a day. The patient is being evaluated f or possible bypass grafting. No decision has been made yet. He is currently on room air. Not receiving any IV fluids. His chest x-ray on admission was negative. He is currently not having any pain. He denies being short of breath on exertion. Lab data today shows a white count 8.4, hemoglobin 17.2, and a platelet count which is 221,000. PT/INR are normal. Sodium potassium chloride CO2 anion gap BUN and creatinine are all normal. Troponin was 1.25. Progress note dated 10/24/2020. The patient's doing well. The patient will not have surgery until Wednesday. The patient will be maintained in the hospital till then. The patient is on room air. Is not receiving any IV fluids. Apparently his spirometry showed an FEV1 that was 68% of predicted. I have not yet seen the actual pulmonary function test. Clinically he is doing well. He denies any chest pain or chest discomfort. He also denies any shortness of breath. Lab data today includes a completely normal CBC. In addition, sodium 137, potassium 5.6, chlorides 102, CO2 29, anion gap 6, BUN 18, creatinine 0.69. Progress note dated 10/25/2020. Patient's doing well. The patient is not receiving any supplemental oxygen, or IV fluids the patient was admitted to the hospital with a diagnosis of non-ST segment elevation myocardial infarction he is to undergo bypass grafting on Wednesday. The patient did have a bedside spirometry. The FEV1 percent was 68. The patient is not having any pulmonary complaints. He did smoke for 40 years, at less than 1 full pack a day. No new labs today. Progress note dated 10/26/2020. Currently, the patient's doing well. The patient was admitted with a diagnosis of non-ST segment elevation myocardial infarction. The patient's catheterization showed significant coronary disease. The patient's awaiting a bypass grafting on October 28. The patient's currently on room air. Not receiving any IV fluids. He was a smoker for about 40 years. Less than a pack a day. On his bedside spirometry, his FEV1 percent was 68. Sodium 138, potassium 4.8, chlorides 101, CO2 33, anion gap 4, BUN 15, creatinine 0.65. On 10/27/2020 patient seen in follow-up on selective care unit, he has remained stable, complains of chest pain, no worsening dyspnea, room air pulse ox is 98%, his been afebrile, hemodynamically he is stable. he remains on heparin infusion and point tenderness and uterine to 75 ML per hour. No new chest x-ray, today's labs have been reviewed showing sodium is 138, potassium is 4.9, chloride is 99, CO2 33, BUN of 16 creatinine 0.64. His preop FEV1 was 68%. Has had no acute events overnight, his been instructed on incentive spirometry use. Objective - Vital Signs Vital signs: Vital Signs Temp 97.8 F 10/27/20 09:42 Pulse 80 10/27/20 12:06 Resp 20 10/27/20 09:42 BP 123/75 10/27/20 09:42 Pulse Ox 98 10/27/20 09:42 Intake & Output 10/26/20 10/27/20 10/27/20 18:59 06:59 18:59 Intake Total 52.324 66.516 358 Output Total 255 600 Balance -202.676 -533.484 358 Weight 77.8 kg 77 kg Intake: Intake, IV Titration 52.324 66.516 Amount Heparin Sod,Pork in 0.45% 52.324 66.516 NaCl 25,000 unit In 0.45 % NaCl 1 250ml.bag @ 12 UNITS/KG/HR 7.62 mls/hr IV .Q24H [facility] Rx#: [id number] Oral 0 358 Output: Urine 215 600 Post Void Residual 40 Other: Voiding Method Urinal Urinal - Exam GENERAL EXAM: Alert, very pleasant, 70-year-old white male, on room air, with a pulse ox of 98% comfortable in no apparent distress. HEAD: Normocephalic/atraumatic. EYES: Normal reaction of pupils, equal size. Conjunctiva pink, sclera white. NOSE: Clear with pink turbinates. THROAT: No erythema or exudates. NECK: No masses, no JVD, no thyroid enlargement, no adenopathy. CHEST: No chest wall deformity. Symmetrical expansion. LUNGS: Equal air entry with no crackles, wheeze, rhonchi or dullness. CVS: Regular rate and rhythm, normal S1 and S2, no gallops, no murmurs, no rubs ABDOMEN: Soft, nontender. No hepatosplenomegaly, normal bowel sounds, no guarding or rigidity. EXTREMITIES: No clubbing, no edema, no cyanosis, 2+ pulses and upper and lower extremities. MUSCULOSKELETAL: Muscle strength and tone normal. SPINE: No scoliosis or deformity SKIN: No rashes CENTRAL NERVOUS SYSTEM: Alert and oriented -3. No focal deficits, tone is normal in all 4 extremities. PSYCHIATRIC: Alert and oriented -3. Appropriate affect. Intact judgment and insight. - Labs CBC & Chem 7: 10/27/20 08:00 10/27/20 08:00 Labs: Abnormal Lab Results - Last 24 Hours (Table) 10/26/20 10/26/20 10/26/20 Range/Units 16:58 16:58 16:58 RBC (4.30-5.90) m/uL Hgb (13.0-17.5) gm/dL Hct (39.0-53.0) % MCHC (31.0-37.0) g/dL RDW (11.5-15.5) % Plt Count (150-450) k/uL Lymphocytes # (1.0-4.8) k/uL PT (9.0-12.0) sec INR (<1.2) APTT (22.0-30.0) sec Sodium (137-145) mmol/L BUN (9-20) mg/dL Creatinine (0.66-1.25) mg/dL Glucose (74-99) mg/dL POC Glucose (mg/dL) (75-99) mg/dL Hemoglobin A1c 6.5 H (4.0-6.0) % Calcium (8.4-10.2) mg/dL AST (17-59) U/L Troponin I 3.790 H* (0.000-0.034) ng/mL Total Protein (6.3-8.2) g/dL Albumin (3.5-5.0) g/dL Procalcitonin 62.19 H (0.02-0.09) ng/mL Urine Protein (Negative) Ur Leukocyte Esterase (Negative) Urine WBC (0-5) /hpf Hyaline Casts (0-2) /lpf Urine Mucus (None) /hpf 10/26/20 10/26/20 10/26/20 Range/Units 16:58 17:01 17:05 RBC (4.30-5.90) m/uL Hgb (13.0-17.5) gm/dL Hct (39.0-53.0) % MCHC (31.0-37.0) g/dL RDW (11.5-15.5) % Plt Count (150-450) k/uL Lymphocytes # (1.0-4.8) k/uL PT (9.0-12.0) sec INR (<1.2) APTT 33.4 H (22.0-30.0) sec Sodium (137-145) mmol/L BUN (9-20) mg/dL Creatinine (0.66-1.25) mg/dL Glucose (74-99) mg/dL POC Glucose (mg/dL) 179 H (75-99) mg/dL Hemoglobin A1c (4.0-6.0) % Calcium (8.4-10.2) mg/dL AST (17-59) U/L Troponin I (0.000-0.034) ng/mL Total Protein (6.3-8.2) g/dL Albumin (3.5-5.0) g/dL Procalcitonin (0.02-0.09) ng/mL Urine Protein Trace H (Negative) Ur Leukocyte Esterase Moderate H (Negative) Urine WBC 18 H (0-5) /hpf Hyaline Casts 5 H (0-2) /lpf Urine Mucus Rare H (None) /hpf 10/26/20 10/27/20 10/27/20 Range/Units 19:57 00:11 06:49 RBC (4.30-5.90) m/uL Hgb (13.0-17.5) gm/dL Hct (39.0-53.0) % MCHC (31.0-37.0) g/dL RDW (11.5-15.5) % Plt Count (150-450) k/uL Lymphocytes # (1.0-4.8) k/uL PT (9.0-12.0) sec INR (<1.2) APTT 42.2 H (22.0-30.0) sec Sodium (137-145) mmol/L BUN (9-20) mg/dL Creatinine (0.66-1.25) mg/dL Glucose (74-99) mg/dL POC Glucose (mg/dL) 291 H 173 H (75-99) mg/dL Hemoglobin A1c (4.0-6.0) % Calcium (8.4-10.2) mg/dL AST (17-59) U/L Troponin I (0.000-0.034) ng/mL Total Protein (6.3-8.2) g/dL Albumin (3.5-5.0) g/dL Procalcitonin (0.02-0.09) ng/mL Urine Protein (Negative) Ur Leukocyte Esterase (Negative) Urine WBC (0-5) /hpf Hyaline Casts (0-2) /lpf Urine Mucus (None) /hpf 10/27/20 10/27/20 10/27/20 Range/Units 08:00 08:00 08:00 RBC 3.53 L (4.30-5.90) m/uL Hgb 10.4 L (13.0-17.5) gm/dL Hct 34.1 L (39.0-53.0) % MCHC 30.5 L (31.0-37.0) g/dL RDW 15.8 H (11.5-15.5) % Plt Count 83 L (150-450) k/uL Lymphocytes # 0.2 L (1.0-4.8) k/uL PT 12.6 H (9.0-12.0) sec INR 1.2 H (<1.2) APTT 39.4 H (22.0-30.0) sec Sodium 133 L (137-145) mmol/L BUN 74 H (9-20) mg/dL Creatinine 2.48 H (0.66-1.25) mg/dL Glucose 165 H (74-99) mg/dL POC Glucose (mg/dL) (75-99) mg/dL Hemoglobin A1c (4.0-6.0) % Calcium 7.8 L (8.4-10.2) mg/dL AST 69 H (17-59) U/L Troponin I (0.000-0.034) ng/mL Total Protein 5.6 L (6.3-8.2) g/dL Albumin 2.9 L (3.5-5.0) g/dL Procalcitonin (0.02-0.09) ng/mL Urine Protein (Negative) Ur Leukocyte Esterase (Negative) Urine WBC (0-5) /hpf Hyaline Casts (0-2) /lpf Urine Mucus (None) /hpf 10/27/20 Range/Units 11:56 RBC (4.30-5.90) m/uL Hgb (13.0-17.5) gm/dL Hct (39.0-53.0) % MCHC (31.0-37.0) g/dL RDW (11.5-15.5) % Plt Count (150-450) k/uL Lymphocytes # (1.0-4.8) k/uL PT (9.0-12.0) sec INR (<1.2) APTT (22.0-30.0) sec Sodium (137-145) mmol/L BUN (9-20) mg/dL Creatinine (0.66-1.25) mg/dL Glucose (74-99) mg/dL POC Glucose (mg/dL) 188 H (75-99) mg/dL Hemoglobin A1c (4.0-6.0) % Calcium (8.4-10.2) mg/dL AST (17-59) U/L Troponin I (0.000-0.034) ng/mL Total Protein (6.3-8.2) g/dL Albumin (3.5-5.0) g/dL Procalcitonin (0.02-0.09) ng/mL Urine Protein (Negative) Ur Leukocyte Esterase (Negative) Urine WBC (0-5) /hpf Hyaline Casts (0-2) /lpf Urine Mucus (None) /hpf Microbiology - Last 24 Hours (Table) 10/26/20 09:47 Blood Culture - Preliminary Blood No Growth after 24 hours 10/26/20 09:47 Blood Culture - Preliminary Blood No Growth after 24 hours Assessment and Plan Plan: Assessment: #1. Multivessel coronary artery disease with non-ST segment elevation m yocardial infarction, awaiting coronary artery bypass grafting on 10/28/2020 #2. History of hypertension #3. History of hyperlipidemia #4. Peripheral artery disease #5. Insulin-dependent diabetes mellitus #6. Ongoing tobacco use with nicotine addiction, patient carries a [id number] smoking history #7. History of left lower leg DVT, remote #8. Moderately severe COPD based on bedside spirometry with an FEV1 of 60% of predicted Plan: Continue encouraging deep breathing and coughing No acute events overnight No complaints of chest pain Patient is scheduled for surgery tomorrow We'll see the patient postoperative period in the intensive care unit We'll continue to follow I performed a history & physical examination of the patient and discussed their management with my nurse practitioner, Marina Ayala. I reviewed the nurse practitioner's note and agree with the documented findings and plan of care. Lung sounds are positive for diminished breath sounds. The findings and the impression was discussed with the patient. I attest to the documentation by the nurse practitioner. Time with Patient: Less than 30
--- NOTE | 2020-10-27 16:16 | P.PN ---
Subjective Progress Note Date: 10/27/20 Principal diagnosis: CHF, non-ST segment elevation myocardial infarction. This is a very pleasant 70-year-old gentleman with a known history of chronic back pain, anemia, chronic kidney disease stage III, diabetes mellitus, acute hypoxemic respiratory failure, recurrent ascites with paracentesis required nearly every 2 weeks. Last paracentesis here 10/14/2020 with 6.1 L removed, immunosuppressive therapy treated with Prograf and prednisone secondary to transplanted lungs back in 2008. He had complications of COPD and pulmonary fibrosis. He follows with Dr. Syed in our office for the same. He was hospitalized earlier this month for right lower lobe pneumonia. He was seen in the office on 10/17/2020 and at that time his follow-up chest x-ray showed no acute abnormalities. There was some transplanted changes and chronic pleural thickening along the right heart border. He presented to the emergency room again earlier this morning with complaints of increasing shortness of breath, cough and congestion. Chest x-ray again shows diffuse bilateral infiltrates r ight greater than left with right pleural thickening/loculated effusion. No significant change compared to x-ray on 10/03/2020. White count 13.8. Hemoglobin 10.7. Platelets 100,000. INR 1.2. Sodium 135. Potassium 4.9. Creatinine 2.69. Lactic acid 2.4. AST 101. ALT 45. Troponin 5.14. ProBNP 28,700. Influenza screen negative. COVID-19 screen negative. He is seen today in consultation in the emergency room. He is currently sitting up in the stretcher. Awake and alert. He does have a loose nonproductive cough. Maintaining O2 saturations in the 90s on 4 L/m per nasal cannula. He is afebrile. EKG reveals a right bundle branch block pattern cannot rule out septal or lateral infarct. He has been initiated on a heparin drip. DuoNeb inhalations, IV Lasix. Progress note dated 10/27/2020. 70-year-old male, well-known to us. The patient has a history of chronic back pain, anemia, stage III chronic kidney disease, diabetes, hypoxemic respiratory failure, recurrent ascites, COPD, pulmonary fibrosis, and double lung transplantation in 2008. The patient was admitted secondary to bilateral pneumonia, and CHF. In addition, he was found have an acute non-ST; elevation myocardial infarction. Currently he is resting comfortably. He has no complaints. His abdomen is quite distended. Currently, the patient's resting comfortably. He's lying nearly flat in bed. He is on 4 L nasal cannula. He is on saline at 10 mL an hour, and IV heparin drip. White count 7.1, heme him 10.4, crit 34.1, platelet count 83,000. PT 12.6, INR 1.2, PTT 39.4, sodium 133, potassium 4.9, chlorides 101, CO2 23, anion gap 9, BUN 74, creatinine 2.48. Chest x-ray shows diffuse bilateral lung infiltrates, right greater than left, which are unchanged compared to x-ray done on October 03. Objective - Vital Signs Vital signs: Vital Signs Temp 97.8 F 10/27/20 09:42 Pulse 80 10/27/20 12:06 Resp 20 10/27/20 09:42 BP 123/75 10/27/20 09:42 Pulse Ox 98 10/27/20 09:42 Intake & Output 10/26/20 10/27/20 10/27/20 18:59 06:59 18:59 Intake Total 52.324 66.516 489.16 Output Total 255 600 Balance -202.676 -533.484 489.16 Weight 77.8 kg 77 kg Intake: Intake, IV Titration 52.324 66.516 131.16 Amount Heparin Sod,Pork in 0.45% 52.324 66.516 131.16 NaCl 25,000 unit In 0.45 % NaCl 1 250ml.bag @ 12 UNITS/KG/HR 7.62 mls/hr IV .Q24H [facility] Rx#: [id number] Oral 0 358 Output: Urine 215 600 Post Void Residual 40 Other: Voiding Method Urinal Urinal - Exam No acute distress, oriented 3. Currently on 4 L. No use of accessory muscles or conversational dyspnea. HEENT examination is grossly unremarkable. Neck supple. Full range of motion. No adenopathy thyromegaly or neck vein distention. Cardiovascular examination reveals regular rhythm rate. S1-S2 normal. No S3 or S4. No discernible murmur noted. Heart rate 80 bpm. Lungs reveal scattered rhonchi and crackles. Breath sounds equal bilaterally. No wheezes. Saturations are 98% on 4 L. Abdomen is quite distended, with ascites. There is a fluid wave. No tenderness. Extremities are intact. No cyanosis clubbing or edema. Skin is without rash or lesion. Neurologic examination is brief but nonfocal. - Labs CBC & Chem 7: 10/27/20 08:00 10/27/20 08:00 Labs: Abnormal Lab Results - Last 24 Hours (Table) 10/26/20 10/26/20 10/26/20 Range/Units 16:58 16:58 16:58 RBC (4.30-5.90) m/uL Hgb (13.0-17.5) gm/dL Hct (39.0-53.0) % MCHC (31.0-37.0) g/dL RDW (11.5-15.5) % Plt Count (150-450) k/uL Lymphocytes # (1.0-4.8) k/uL PT (9.0-12.0) sec INR (<1.2) APTT (22.0-30.0) sec Sodium (137-145) mmol/L BUN (9-20) mg/dL Creatinine (0.66-1.25) mg/dL Glucose (74-99) mg/dL POC Glucose (mg/dL) (75-99) mg/dL Hemoglobin A1c 6.5 H (4.0-6.0) % Calcium (8.4-10.2) mg/dL AST (17-59) U/L Troponin I 3.790 H* (0.000-0.034) ng/mL Total Protein (6.3-8.2) g/dL Albumin (3.5-5.0) g/dL Procalcitonin 62.19 H (0.02-0.09) ng/mL Urine Protein (Negative) Ur Leukocyte Esterase (Negative) Urine WBC (0-5) /hpf Hyaline Casts (0-2) /lpf Urine Mucus (None) /hpf 10/26/20 10/26/20 10/26/20 Range/Units 16:58 17:01 17:05 RBC (4.30-5.90) m/uL Hgb (13.0-17.5) gm/dL Hct (39.0-53.0) % MCHC (31.0-37.0) g/dL RDW (11.5-15.5) % Plt Count (150-450) k/uL Lymphocytes # (1.0-4.8) k/uL PT (9.0-12.0) sec INR (<1.2) APTT 33.4 H (22.0-30.0) sec Sodium (137-145) mmol/L BUN (9-20) mg/dL Creatinine (0.66-1.25) mg/dL Glucose (74-99) mg/dL POC Glucose (mg/dL) 179 H (75-99) mg/dL Hemoglobin A1c (4.0-6.0) % Calcium (8.4-10.2) mg/dL AST (17-59) U/L Troponin I (0.000-0.034) ng/mL Total Protein (6.3-8.2) g/dL Albumin (3.5-5.0) g/dL Procalcitonin (0.02-0.09) ng/mL Urine Protein Trace H (Negative) Ur Leukocyte Esterase Moderate H (Negative) Urine WBC 18 H (0-5) /hpf Hyaline Casts 5 H (0-2) /lpf Urine Mucus Rare H (None) /hpf 10/26/20 10/27/20 10/27/20 Range/Units 19:57 00:11 06:49 RBC (4.30-5.90) m/uL Hgb (13.0-17.5) gm/dL Hct (39.0-53.0) % MCHC (31.0-37.0) g/dL RDW (11.5-15.5) % Plt Count (150-450) k/uL Lymphocytes # (1.0-4.8) k/uL PT (9.0-12.0) sec INR (<1.2) APTT 42.2 H (22.0-30.0) sec Sodium (137-145) mmol/L BUN (9-20) mg/dL Creatinine (0.66-1.25) mg/dL Glucose (74-99) mg/dL POC Glucose (mg/dL) 291 H 173 H (75-99) mg/dL Hemoglobin A1c (4.0-6.0) % Calcium (8.4-10.2) mg/dL AST (17-59) U/L Troponin I (0.000-0.034) ng/mL Total Protein (6.3-8.2) g/dL Albumin (3.5-5.0) g/dL Procalcitonin (0.02-0.09) ng/mL Urine Protein (Negative) Ur Leukocyte Esterase (Negative) Urine WBC (0-5) /hpf Hyaline Casts (0-2) /lpf Urine Mucus (None) /hpf 10/27/20 10/27/20 10/27/20 Range/Units 08:00 08:00 08:00 RBC 3.53 L (4.30-5.90) m/uL Hgb 10.4 L (13.0-17.5) gm/dL Hct 34.1 L (39.0-53.0) % MCHC 30.5 L (31.0-37.0) g/dL RDW 15.8 H (11.5-15.5) % Plt Count 83 L (150-450) k/uL Lymphocytes # 0.2 L (1.0-4.8) k/uL PT 12.6 H (9.0-12.0) sec INR 1.2 H (<1.2) APTT 39.4 H (22.0-30.0) sec Sodium 133 L (137-145) mmol/L BUN 74 H (9-20) mg/dL Creatinine 2.48 H (0.66-1.25) mg/dL Glucose 165 H (74-99) mg/dL POC Glucose (mg/dL) (75-99) mg/dL Hemoglobin A1c (4.0-6.0) % Calcium 7.8 L (8.4-10.2) mg/dL AST 69 H (17-59) U/L Troponin I (0.000-0.034) ng/mL Total Protein 5.6 L (6.3-8.2) g/dL Albumin 2.9 L (3.5-5.0) g/dL Procalcitonin (0.02-0.09) ng/mL Urine Protein (Negative) Ur Leukocyte Esterase (Negative) Urine WBC (0-5) /hpf Hyaline Casts (0-2) /lpf Urine Mucus (None) /hpf 10/27/20 Range/Units 11:56 RBC (4.30-5.90) m/uL Hgb (13.0-17.5) gm/dL Hct (39.0-53.0) % MCHC (31.0-37.0) g/dL RDW (11.5-15.5) % Plt Count (150-450) k/uL Lymphocytes # (1.0-4.8) k/uL PT (9.0-12.0) sec INR (<1.2) APTT (22.0-30.0) sec Sodium (137-145) mmol/L BUN (9-20) mg/dL Creatinine (0.66-1.25) mg/dL Glucose (74-99) mg/dL POC Glucose (mg/dL) 188 H (75-99) mg/dL Hemoglobin A1c (4.0-6.0) % Calcium (8.4-10.2) mg/dL AST (17-59) U/L Troponin I (0.000-0.034) ng/mL Total Protein (6.3-8.2) g/dL Albumin (3.5-5.0) g/dL Procalcitonin (0.02-0.09) ng/mL Urine Protein (Negative) Ur Leukocyte Esterase (Negative) Urine WBC (0-5) /hpf Hyaline Casts (0-2) /lpf Urine Mucus (None) /hpf Microbiology - Last 24 Hours (Table) 10/26/20 09:47 Blood Culture - Preliminary Blood No Growth after 24 hours 10/26/20 09:47 Blood Culture - Preliminary Blood No Growth after 24 hours Assessment and Plan Assessment: 1 Acute on chronic hypoxemic respiratory failure secondary to suspected acute bilateral pneumonia, pulmonary edema, congestive heart failure. 2 Acute non-ST segment elevation myocardial infarction. 3 Recurrent pneumonias secondary to immunosuppressed state. 4 History of bilateral lung transplant in 2008 maintained on Prograf and prednisone in the outpatient setting. 5 History of hypogammaglobulinemia. Has received IVIG. 6 Chronic kidney disease, stage III. 7 Diabetes mellitus, type II. 8 Chronic back pain. 9 Chronic anemia. 10 History of thrombocytopenia. 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 12 Hyperlipidemia. 13 Hypertension. 14 Benign prostatic hypertrophy. 15 Chronic gout. 16 History of previous alcohol abuse. 17 Poor overall functional performance based on the above-mentioned multiple comorbidities. Plan: Plan dated 10/27/2020. Currently, the patient seemed to be very comfortable. The patient is currently on 4 L nasal cannula. He is receiving saline at 10 mL an hour, and a heparin drip. Pro-calcitonin level is 62.19. Troponin was 3.790. N-terminal proBNP was 28,700. We did add Levaquin. He may have a urinary tract infection. Additional recommendations and suggestions are forthcoming. [facility] He is not manifesting any signs or symptoms of respiratory distress. Time with Patient: Less than 30
[2020-10-27 17:07] LABS: Glucose,Whole Blood 216 mg/dL (75-99)
--- NOTE | 2020-10-27 18:16 | P.CRDCN ---
History of Present Illness Consult date: 10/27/20 History of present illness: This is a 70-year-old gentleman with history of lung transplant, cirrhosis with repeated paracentesis and also chronic renal failure was admitted to the hospital with complaints of increasing shortness of breath, cough and congestion. A chest x-ray showed him bilateral infiltrates, more so on the right side. Underlying CHF cannot be excluded. His proBNP is elevated. His EKG did not reveal any acute changes. Troponin values are elevated. Patient's creatinine also is elevated size to acute on chronic renal failure. His echo [place] showed normal LV function. EKGs did not reveal any acute changes. The importance of elevated troponin is not entirely clear at this time. I do not think we are dealing with acute coronary syndrome. However, patient has multiple metabolic issues. Patient is on IV Lasix. His abdomen is distended and he may need repeat paracentesis. I will recommend continued conservative management with IV diuretic therapy. Patient may also require antibiotics. Further recommendations depend upon clinical course. No cardiac intervention is suggested at this time except medical therapy. May also consider adding some nitrates and beta celine as tolerated Review of Systems As per the chart Past Medical History Past Medical History: COPD, Diabetes Mellitus, GERD/Reflux, Osteoarthritis (OA), Pneumonia, Prostate Disorder, Renal Disease, Respiratory Disorder Additional Past Medical History / Comment(s): recent admission with pneumonia, History of COPD and pulmonary fibrosis. The patient underwent bilateral lung transplantation and 2008. He has diabetes, chronic arthritis with back pain, degenerative disc disease, chronic stage III kidney disease, chronic hypogammaglobulinemia and the patient is receiving IVIG treatment on outpatient basis and the last treatment was in June 2019, left lung pneumonia in July 2019 requiring hospitalization, cirrhosis of the liver History of Any Multi-Drug Resistant Organisms: None Reported Past Surgical History: Heart Catheterization, Hernia Repair Additional Past Surgical History / Comment(s): RT & LT CATARACT REMOVED/COLONOSCOPY/BILATERAL LUNG TRANSPLANT 20082013 HERNIA REPAIR UMBILICAL, LEFT INGUINAL AND FEMEROL. TURP - 2015, paracentesis 08/06/20 Past Anesthesia/Blood Transfusion Reactions: No Reported Reaction Past Psychological History: Anxiety, Depression Smoking Status: Former smoker Past Alcohol Use History: None Reported Additional Past Alcohol Use History / Comment(s): Patient was a smoker one and half to 2 packs per day starting at the age of 12 and quit at approximately age 43. He denies any marijuana, illicit drug use or alcohol use. He lives with his girlfriend. Patient does not have oxygen at home. Past Drug Use History: None Reported - Past Family History Mother Family Medical History: No Reported History Additional Family Medical History / Comment(s): Mother at age 73 from asthma or COPD. Father Family Medical History: Asthma, Pneumonia Additional Family Medical History / Comment(s): Father at age 68 from asthma. Brother(s) Additional Family Medical History / Comment(s): Patient states he has 6 brothers and 5 sisters and is not sure of their medical history. Some have passed. Patient has one daughter with no major medical problems. Medications and Allergies Home Medications Medication Instructions Recorded Confirmed Type Alendronate Sodium [Fosamax] 70 mg PO WE 11/06/13 10/26/20 History Ergocalciferol (Vitamin D2) 50,000 units PO Q15D 11/06/13 10/26/20 History [Drisdol] Fludrocortisone [Florinef] 0.1 mg PO DAILY 11/06/13 10/26/20 History Metoprolol Succinate (ER) [Toprol 100 mg PO DAILY 11/06/13 10/26/20 History XL] Tacrolimus [Prograf] 2 mg PO BID 11/06/13 10/26/20 History Multivitamins, Thera [Multivitamin 1 tab PO DAILY 07/23/16 10/26/20 History (formulary)] Ferrous Sulfate [Iron (65 MG 325 mg PO DAILY 09/29/16 10/26/20 History Elemental)] Allopurinol [Zyloprim] 100 mg PO DAILY 05/06/17 10/26/20 History Metoclopramide [Reglan] 10 mg PO DAILY 05/06/17 10/26/20 History amLODIPine [Norvasc] 10 mg PO DAILY 05/06/17 10/26/20 History Omeprazole [PriLOSEC] 40 mg PO BID 03/02/18 10/26/20 History Sertraline [Zoloft] 50 mg PO DAILY 03/02/18 10/26/20 History Tacrolimus [Prograf] 0.5 mg PO BID 08/16/19 10/26/20 History Tamsulosin HCl [Flomax] 0.4 mg PO DAILY 08/16/19 10/26/20 History predniSONE 5 mg PO DAILY #0 08/21/19 10/26/20 Rx Atorvastatin [Lipitor] 10 mg PO DAILY 05/30/20 10/26/20 History Sodium Bicarbonate 650 mg PO BID 08/05/20 10/26/20 History HYDROcodone/APAP 5-325MG [[place] 1 tab PO TID PRN 08/15/20 10/26/20 History 5-325] Insulin Detemir [Levemir Flextouch] 20 unit SQ BID 09/05/20 10/26/20 History Azithromycin [Zithromax] 250 mg PO MOWEFR 09/30/20 10/26/20 History Furosemide [Lasix] 40 mg PO Q48H 09/30/20 10/26/20 History Losartan Potassium 50 mg PO DAILY 10/26/20 10/26/20 History Allergies Allergy/AdvReac Type Severity Reaction Status Date / Time clarithromycin [From Biaxin] AdvReac instructed Verified 10/26/20 11:44 not to take r/t lung transplant grapefruit AdvReac Unknown Verified 10/26/20 11:44 ibuprofen [From Motrin] AdvReac Abdominal Verified 10/26/20 11:44 Pain orange juice AdvReac Unknown Verified 10/26/20 11:44 Physical Exam Vitals: Vital Signs Temp Pulse Pulse Resp BP Pulse Ox 10/27/20 16:24 80 10/27/20 16:12 80 10/27/20 12:06 80 10/27/20 11:55 80 10/27/20 09:42 97.8 F 88 20 123/75 98 10/27/20 08:27 80 10/27/20 08:14 80 10/27/20 04:00 98.1 F 95 20 126/64 97 10/27/20 00:00 97.9 F 80 20 114/55 96 10/26/20 20:00 97.7 F 81 22 111/59 95 10/26/20 19:34 80 10/26/20 19:26 80 10/26/20 18:52 97.9 F 91 20 145/65 92 L Intake and Output 10/27/20 10/27/20 10/27/20 06:59 14:59 22:59 Intake Total 66.516 489.16 Output Total 600 Balance -533.484 489.16 Intake: Intake, IV Titration 66.516 131.16 Amount Heparin Sod,Pork in 0.45% 66.516 131.16 NaCl 25,000 unit In 0.45 % NaCl 1 250ml.bag @ 12 UNITS/KG/HR 7.62 mls/hr IV .Q24H [facility] Rx#: [id number] Oral 358 Output: Urine 600 Other: Voiding Method Urinal Urinal Weight 77 kg GENERAL EXAM: Patient is alert and oriented and doesn't appear to be in any acute distress HEENT: Normocephalic. Normal reaction of pupils, equal size, normal range of extraocular motion. No erythema or exudates in the throat. NECK: No masses, no nuchal rigidity. CHEST: No chest wall deformity. LUNGS: Equal air entry with with a scattered rhonchi HEART: S1 and S2 normal with no audible mumurs or gallops. Regular rhythm, femorals equal on both sides.. ABDOMEN: Distended with ascites SKIN: No rashes CENTRAL NERVOUS SYSTEM: No focal deficits. EXTREMITIES: Plus edema. Chronic venous stasis Results 10/27/20 08:00 10/27/20 08:00 Cardiac Enzymes 10/27/20 Range/Units 08:00 AST 69 H (17-59) U/L Coagulation 10/27/20 10/27/20 Range/Units 00:11 08:00 PT 12.6 H (9.0-12.0) sec APTT 42.2 H 39.4 H (22.0-30.0) sec CBC 10/27/20 Range/Units 08:00 WBC 7.1 (3.8-10.6) k/uL RBC 3.53 L (4.30-5.90) m/uL Hgb 10.4 L (13.0-17.5) gm/dL Hct 34.1 L (39.0-53.0) % Plt Count 83 L (150-450) k/uL Comprehensive Metabolic Panel 10/27/20 Range/Units 08:00 Sodium 133 L (137-145) mmol/L Potassium 4.9 (3.5-5.1) mmol/L Chloride 101 (98-107) mmol/L Carbon Dioxide 23 (22-30) mmol/L BUN 74 H (9-20) mg/dL Creatinine 2.48 H (0.66-1.25) mg/dL Glucose 165 H (74-99) mg/dL Calcium 7.8 L (8.4-10.2) mg/dL AST 69 H (17-59) U/L ALT 44 (4-49) U/L Alkaline Phosphatase 123 (38-126) U/L Total Protein 5.6 L (6.3-8.2) g/dL Albumin 2.9 L (3.5-5.0) g/dL Current Medications Generic Name Dose Route Start Last Admin Trade Name Freq PRN Reason Stop Dose Admin Hydrocodone Bitart/Acetaminophen 1 each 10/26/20 13:16 10/27/20 04:30 Hydrocodone/Apap 5-325mg 1 Each Tab PO 1 each TID PRN Administration Pain Albuterol/Ipratropium 3 ml 10/26/20 12:00 10/27/20 16:12 Ipratropium-Albuterol 3 Ml Neb INHALATION 3 ml RT-QID BARB Administration Albuterol/Ipratropium 3 ml 10/26/20 11:23 Ipratropium-Albuterol 3 Ml Neb INHALATION RT-QID PRN Shortness Of Breath Or Wheezing Amlodipine Besylate 10 mg 10/27/20 09:00 10/27/20 09:42 Amlodipine 10 Mg Tab PO 10 mg DAILY BARB Administration Aspirin 325 mg 10/28/20 09:00 Aspirin 325 Mg Tab PO DAILY BARB Atorvastatin Calcium 10 mg 10/27/20 09:00 10/27/20 09:42 Atorvastatin 10 Mg Tab PO 10 mg DAILY BARB Administration Fludrocortisone Acetate 0.1 mg 10/27/20 09:00 10/27/20 09:44 Fludrocortisone 0.1 Mg Tab PO 0.1 mg DAILY BARB Administration Furosemide 40 mg 10/26/20 12:00 10/27/20 15:58 Furosemide 10 Mg/Ml 4 Ml Vial IV 40 mg Q8H BARB Administration Heparin Sodium (Porcine) 0 unit 10/26/20 11:06 10/27/20 01:35 Heparin Sodium 1,000 Un/Ml (10ml Vl) IV 2,000 unit PER PROTOCOL PRN Administration Low PTT Protocol Heparin Sodium/Sodium Chloride 250 mls @ 7.62 mls/hr 10/26/20 11:15 10/27/20 15:59 25,000 unit/ Sodium Chloride IV 17 units/kg/hr .Q24H [facility] 10.796 mls/hr Administration Protocol 12 UNITS/KG/HR Insulin Detemir 20 unit 10/26/20 21:00 10/27/20 09:42 Insulin Detemir (Levemir) 100 Unit/Ml Syr SQ 20 unit BID BARB Administration Levofloxacin 250 mg 10/27/20 09:00 10/27/20 09:44 Levofloxacin 250 Mg Tab PO 250 mg DAILY BARB Administration Metoclopramide HCl 10 mg 10/27/20 09:00 10/27/20 09:42 Metoclopramide 10 Mg Tab PO 10 mg DAILY BARB Administration Metoprolol Succinate 100 mg 10/27/20 09:00 10/27/20 09:42 Metoprolol Succinate (Er) 100 Mg Tab.Er.24h PO 100 mg DAILY BARB Administration Multivitamins 1 each 10/27/20 09:00 10/27/20 09:42 Multivitamins, Thera 1 Each Tab PO 1 each DAILY BARB Administration Nitroglycerin 1 inch 10/26/20 13:00 10/27/20 15:59 Nitroglycerin Oint 1 Inch/Gm Packet TOPICAL 1 inch QID BARB Administration Pantoprazole Sodium 40 mg 10/26/20 17:30 10/27/20 16:06 Pantoprazole 40 Mg Tablet PO 40 mg AC-BID BARB Administration Prednisone 5 mg 10/27/20 09:00 10/27/20 09:45 Prednisone 5 Mg Tab PO 5 mg DAILY BARB Administration Sertraline HCl 50 mg 10/27/20 09:00 10/27/20 09:42 Sertraline 50 Mg Tab PO 50 mg DAILY BARB Administration Sodium Bicarbonate 650 mg 10/26/20 21:00 10/27/20 09:42 Sodium Bicarbonate Tab 650 Mg Tab PO 650 mg BID BARB Administration Sodium Chloride 10 ml 10/26/20 21:00 10/27/20 09:46 Sodium Chloride 0.9% Flush 10 Ml Syringe IV Not Given BID BARB Tacrolimus 0.5 mg 10/26/20 21:00 10/27/20 15:59 Tacrolimus 0.5 Mg Cap PO 0.5 mg BID BARB Administration Tacrolimus 2 mg 10/26/20 21:00 10/27/20 09:45 Tacrolimus 1 Mg Cap PO 2 mg BID BARB Administration Tamsulosin HCl 0.4 mg 10/27/20 09:00 10/27/20 09:42 Tamsulosin 0.4 Mg Cap.Er.24h PO 0.4 mg DAILY BARB Administration Intake and Output 10/27/20 10/27/20 10/27/20 06:59 14:59 22:59 Intake Total 66.516 489.16 Output Total 600 Balance -533.484 489.16 Intake: Intake, IV Titration 66.516 131.16 Amount Heparin Sod,Pork in 0.45% 66.516 131.16 NaCl 25,000 unit In 0.45 % NaCl 1 250ml.bag @ 12 UNITS/KG/HR 7.62 mls/hr IV .Q24H [facility] Rx#: [id number] Oral 358 Output: Urine 600 Other: Voiding Method Urinal Urinal Weight 77 kg 10/27/20 08:00 10/27/20 08:00 EKG Interpretations (text) Sinus rhythm with evidence of right bundle-branch block. Left axis deviation and ST-T abnormalities Assessment and Plan (1) Ascites Current Visit: No Status: Acute Code(s): R18.8 - OTHER ASCITES SNOMED Code(s): 965280831 (2) History of lung transplant Current Visit: No Status: Acute Code(s): Z94.2 - LUNG TRANSPLANT STATUS SNOMED Code(s): 805838110 (3) Pneumonia Current Visit: No Status: Acute Code(s): J18.9 - PNEUMONIA, UNSPECIFIED ORGANISM SNOMED Code(s): 177267762 (4) Diastolic CHF Current Visit: Yes Status: Acute Code(s): I50.30 - UNSPECIFIED DIASTOLIC (CONGESTIVE) HEART FAILURE SNOMED Code(s): 064911387 (5) Elevated troponin Current Visit: Yes Status: Acute Code(s): R77.8 - OTHER SPECIFIED ABNORMALITIES OF PLASMA PROTEINS SNOMED Code(s): 918737506 (6) Acute on chronic renal failure Current Visit: Yes Status: Acute Code(s): N17.9 - ACUTE KIDNEY FAILURE, UNSPECIFIED; N18.9 - CHRONIC KIDNEY DISEASE, UNSPECIFIED SNOMED Code(s): 832623633 Plan: Continue with IV diuretics takes. May consider paracentesis. No cardiac i ntervention is recommended. May add beta blockers and nitrates as tolerated. May discontinue heparin and start on by mouth baby aspirin
[2020-10-27 20:30] LABS: Glucose,Whole Blood 227 mg/dL (75-99)
[2020-10-27] MEDS: CEFEPIME 2 GM in SODIUM CHLORIDE 0.9% 100 ML IVPB SCH (22:03)
--- NOTE | 2020-10-28 04:46 | PN ---
PROGRESS NOTE DATE OF SERVICE: 10/27/2020 REASON FOR FOLLOWUP: Pneumonia. INTERVAL HISTORY: The patient is currently afebrile. The patient is breathing more comfortably. The patient denies any chest pain. Did have a cough, bringing up some sputum. No hemoptysis. No nausea, no vomiting. No abdominal pain or diarrhea. PHYSICAL EXAMINATION: Blood pressure 123/75, pulse of 88, temperature is 97.8. He is 98% on 4 L nasal cannula. General description is an elderly male lying in bed in no distress. Respiratory system: Unlabored breathing, decreased intensity of breath sounds. No wheeze. HEART: S1, S2. Regular rate and rhythm. ABDOMEN: Soft, no tenderness. Extremities: 1+ edema of feet. LABS: Hemoglobin is 10.4, white count 7.1. BUN of 74, creatinine is 2.48. The patient did have elevated procalcitonin of 52.19. DIAGNOSTIC IMPRESSION AND PLAN: Patient admitted to the hospital with shortness of breath, cough and purulent sputum, which is likely multifactorial in this patient who did have a component of fluid overload. However, likely component of pneumonia with significant elevated Procalcitonin with recent hospitalization for resistant gram-negative. We will add cefepime. Continue Levaquin. Try to obtain a sputum to narrow down his antibiotics and monitor clinical course closely. MMODL / IJN: [id number] /
[2020-10-28 05:59] LABS: Glucose,Whole Blood 93 mg/dL (75-99)
[2020-10-28] MEDS: FUROSEMIDE 10 MG/ML 4 ML VIAL IV SCH ×3 (06:46→20:47)
[2020-10-28] MEDS: NITROGLYCERIN OINT 1 INCH/GM PACKET TOPICAL SCH ×5 (06:47→20:49)
[2020-10-28] MEDS: PANTOPRAZOLE 40 MG TABLET PO SCH ×2 (06:48→16:35)
[2020-10-28] MEDS: IPRATROPIUM-ALBUTEROL 3 ML NEB INHALATION SCH ×4 (08:12→20:02)
[2020-10-28] MEDS ORDERED: ASPIRIN 325 MG TAB PO SCH (09:00)
[2020-10-28] MEDS: CEFEPIME 2 GM in SODIUM CHLORIDE 0.9% 100 ML IVPB SCH (09:08)
[2020-10-28] MEDS: INSULIN DETEMIR (LEVEMIR) 100 UNIT/ML SYR SQ SCH ×2 (09:09→20:47)
[2020-10-28] MEDS: TAMSULOSIN 0.4 MG CAP.ER.24H PO SCH (09:09)
[2020-10-28] MEDS: METOPROLOL SUCCINATE (ER) 100 MG TAB.ER.24H PO SCH (09:09)
[2020-10-28] MEDS: ATORVASTATIN 10 MG TAB PO SCH (09:09)
[2020-10-28] MEDS: SERTRALINE 50 MG TAB PO SCH (09:09)
[2020-10-28] MEDS: METOCLOPRAMIDE 10 MG TAB PO SCH (09:09)
[2020-10-28] MEDS: SODIUM BICARBONATE TAB 650 MG TAB PO SCH ×2 (09:09→20:47)
[2020-10-28] MEDS: MULTIVITAMINS, THERA 1 EACH TAB PO SCH (09:09)
[2020-10-28] MEDS: amLODIPine 10 MG TAB PO SCH (09:09)
[2020-10-28] MEDS: TACROLIMUS 0.5 MG CAP PO SCH ×2 (09:10→20:49)
[2020-10-28] MEDS: predniSONE 5 MG TAB PO SCH (09:10)
[2020-10-28] MEDS: FLUDROCORTISONE 0.1 MG TAB PO SCH (09:10)
[2020-10-28] MEDS: TACROLIMUS 1 MG CAP PO SCH ×2 (09:11→20:48)
[2020-10-28] MEDS: HYDROcodone/APAP 5-325MG 1 EACH TAB PO PRN ×2 (09:18→16:35)
[2020-10-28] MEDS: ASPIRIN 81 MG PO SCH (09:18)
[2020-10-28] MEDS: LEVOFLOXACIN 250 MG TAB PO SCH (09:27)
[2020-10-28 09:50] LABS: Albumin 2.9 g/dL (3.5-5.0); Potassium 4.2 mmol/L (3.5-5.1); Total Protein 5.5 g/dL (6.3-8.2)
[2020-10-28 09:51] LABS: Calcium 7.6 mg/dL (8.4-10.2); Total Bilirubin 0.8 mg/dL (0.2-1.3)
[2020-10-28 10:49] VITALS: BMI 27.6
[2020-10-28 11:46] LABS: Glucose,Whole Blood 140 mg/dL (75-99)
--- NOTE | 2020-10-28 12:03 | P.PN ---
Subjective Progress Note Date: 10/28/20 10/28/2020 and seeing the patient for a follow-up. Clinically stool came slightly improved compared to yesterday. As mentioned earlier, the patient presented with worsening shortness of breath and hypoxic respiratory failure. The patient is a case of lung transplantation is patient has been maintained on immunosuppression with a combination of Prograf and prednisone. However, he has also developed liver failure/liver cirrhosis and the patient has recurrent ascites and he has required multiple paracenteses in the past and he has been receiving drainage almost every 2-3 weeks. The last paracentesis that was done on this patient was on 10/14/2020 and a total of 6.1 L of pleural fluid was drai kane. During this current admission, the patient's pro-calcitonin level was elevated. Based on the fact that his chronic immunosuppressed, the patient will be covered with antibiotics and I'm going to start the patient IV cefepime 2 g every 12 hours and the patient is also on Levaquin 250 mg by mouth on a daily basis.. The patient is currently on 2 L of oxygen with a pulse ox of 97%. He is afebrile. Paracentesis to follow. As far as the elevated protein calcitonin level, we are considering the possibility of a pneumonia versus spontaneous bacterial peritonitis. The patient is going to undergo the paracentesis and following that the ascitic fluid was sent for cultures. He remains also on IV Lasix and the patient is receiving Lasix 40 mg every 8 hours. Nephrology is on the case. The patient is on Prograf 2.5 mg twice a day and the patient is still on prednisone 5 mg by mouth daily. No altered mentation. No hepatic encephalopathy. Abdomen is quite distended with ascites. The creatinine is down to 2.3 from a baseline of 2.6 and the patient also has a component of chronic kidney disease. No altered mentation. Note that the patient's pro- calcitonin level was elevated at 62.1 and the patient's proBNP level was also elevated at 28,700 and the patient's troponin was elevated at 3.7. Objective - Vital Signs Vital signs: Vital Signs Temp 97.9 F 10/28/20 08:00 Pulse 80 10/28/20 08:25 Resp 20 10/28/20 08:00 BP 133/66 10/28/20 08:00 Pulse Ox 97 10/28/20 08:00 Intake & Output 10/27/20 10/28/20 10/28/20 18:59 06:59 18:59 Intake Total 729.16 180 Output Total 875 600 675 Balance -145.84 -600 -495 Weight 77.7 kg 77.7 kg Intake: Intake, IV Titration 131.16 Amount Heparin Sod,Pork in 0.45% 131.16 NaCl 25,000 unit In 0.45 % NaCl 1 250ml.bag @ 12 UNITS/KG/HR 7.62 mls/hr IV .Q24H [facility] Rx#: [id number] Oral 598 180 Output: Urine 575 600 675 Post Void Residual 300 Other: Voiding Method Urinal Bedpan Bedpan Urinal Urinal # Voids 2 - Exam Gen. appearance the patient is a mild degree of respiratory distress the patient is currently on 4 L of oxygen by nasal cannula. Head exam was generally normal. There was no scleral icterus or corneal arcus. Mucous membranes were moist. Neck was supple and without jugular venous distension, thyromegaly, or carotid bruits. Carotids were easily palpable bilaterally. There was no adenopathy. Examination of the lungs shows a clamshell incision over the anterior chest related to transplantation. The patient has crackles in right midlung area anteriorly and posteriorly Cardiac exam revealed the PMI to be normally situated and sized. The rhythm was regular and no extrasystoles were noted during several minutes of auscultation. The first and second heart sounds were normal and physiologic splitting of the second heart sound was noted. There were no murmurs, rubs, clicks, or gallops. Abdominal exam revealed normal bowel sounds. The abdomen was soft, non-tender, and without masses, organomegaly, or appreciable enlargement of the abdominal aorta. The patient has an abdominal wall hernia on examination , the patient also has some fluid wave and shifting dullness. No direct tenderness, no rebound tenderness or guarding, and abdomen is significantly distended and the patient is in ascites secondary to liver cirrhosis. Examination of the extremities revealed easily palpable radial, femoral and pedal pulses. There was no cyanosis, clubbing or edema. Examination of the skin revealed no evidence of significant rashes, suspicious appearing nevi or other concerning lesions. - Labs CBC & Chem 7: 10/27/20 08:00 10/28/20 08:56 Labs: Abnormal Lab Results - Last 24 Hours (Table) 10/27/20 10/27/20 10/27/20 Range/Units 11:56 16:56 20:24 Sodium (137-145) mmol/L BUN (9-20) mg/dL Creatinine (0.66-1.25) mg/dL Glucose (74-99) mg/dL POC Glucose (mg/dL) 188 H 216 H 227 H (75-99) mg/dL Calcium (8.4-10.2) mg/dL Total Protein (6.3-8.2) g/dL Albumin (3.5-5.0) g/dL 10/28/20 10/28/20 Range/Units 08:56 11:35 Sodium 134 L (137-145) mmol/L BUN 75 H (9-20) mg/dL Creatinine 2.30 H (0.66-1.25) mg/dL Glucose 135 H (74-99) mg/dL POC Glucose (mg/dL) 140 H (75-99) mg/dL Calcium 7.6 L (8.4-10.2) mg/dL Total Protein 5.5 L (6.3-8.2) g/dL Albumin 2.9 L (3.5-5.0) g/dL Microbiology - Last 24 Hours (Table) 10/26/20 09:47 Blood Culture - Preliminary Blood No Growth after 24 hours 10/26/20 09:47 Blood Culture - Preliminary Blood No Growth after 24 hours Assessment and Plan Plan: 1 acute hypoxic respiratory failure, currently on 4 L of oxygen by nasal cannula. The patient had diffuse breath and pulmonary infiltrates right more than left. The patient is immunosuppressed with a combination of Prograf and prednisone. The patient has also underlying chronic immunosuppression with hypogammaglobulinemia receiving IVIG on outpatient basis. He has been maintained on Zithromax/Bactrim as an antibiotic prophylaxis. His last bout of pneumonia was in July 2019 involving the left lung. Following that, he was hospitalized again in September and currently is coming in for the same problem. Consider interstitial edema versus pneumonia. Pro-calcitonin is elevated. ProBNP is elevated. He is covered with a combination of cefepime and Levaquin. Is currently on 4 L oxygen. Patient is on pentamadine for PCP prophylaxis 2 acute non-STEMI with a troponin maxed at 3.7 3 history of bilateral lung transplantation for COPD/pulmonary fibrosis performed in 2008, maintained on a combination of Prograf and prednisone 4 liver cirrhosis with secondary ascites and abdominal distention 5 chronic stage III kidney disease, with a component of an acute kidney injury on top of chronic kidney disease 6 diabetes mellitus type 2, maintained on Levemir insulin 20 units twice a day 7 chronic back pain 8 osteoarthritis 9 BPH, Post TURP 10 HYPOGAMMAGLOBULINEMIA RECEIVING IVIG ON OUTPATIENT BASIS 11 chronic anxiety/depression 12 chronic immunosuppression utilizing a combination of Prograf and prednisone 13 osteoporosis on Fosamax Plan Proceed with large volume paracentesis Replace the ascitic fluid with albumin depending on the volume Check ascitic fluid for cultures Continue cefepime and Levaquin Continue diuretics Monitor renal function Echocardiogram to assess baseline LV function Cardiology consultation regarding the acute non-STEMI Monitor troponins Currently free of any chest pain We'll continue to follow
--- NOTE | 2020-10-28 13:39 | P.PN ---
Subjective This is a very pleasant 70-year-old gentleman with a known history of chronic back pain, anemia, chronic kidney disease stage III, diabetes mellitus, acute hypoxemic respiratory failure, recurrent ascites with paracentesis required nearly every 2 weeks. Last paracentesis here 10/14/2020 with 6.1 L removed, immunosuppressive therapy treated with Prograf and prednisone secondary to transplanted lungs back in 2008. He does not follow with a field director. We are consulted for elevated troponin and conestive heart failure. His proBNP is elevated 28,700. His EKG did not reveal any acute changes. Troponin 5.1--*>4.7-->3.7. 10/28/20: Patient seen and examined at bedside. No acute distress. Denies chest pain. States his breathing has improved. Currently being maintained on aspirin 81 mg daily, atorvastatin 10 mg daily, Lasix 40 mg IV every 8 hours, metoprolol succinate 100 mg daily. GENERAL: Well-appearing, well-nourished and in no acute distress. VS: Pressure 114/60, heart rate 80, afebrile, 96% on 2 L NECK: Supple without JVD or thyromegaly. LUNGS: Breath sounds clear to auscultation bilaterally. Respiration equal and unlabored. No wheezes, rales or rhonchi. HEART: Regular rate and rhythm without murmurs, rubs or gallops. S1 and S2 heard. EXTREMITIES: Normal range of motion, no edema. No clubbing or cyanosis. Peripheral pulses intact. ASSESSMENT Acute hypoxic respiratory failure Elevated troponin, cannot exclude NSTEMI, EKG with no acute changes. Patient denies chest discomfort. Acute on Chronic Kidney Disease Type 2 Diabetes Recurrent Ascities with paracentesis History of bilateral Lung Transplant in 2008 for COPD/pulmonary fibriosis - on Prograf and prednisone History Liver Cirrhosis with secondary ascites PLAN Echocardiogram ordered will review results No cardiac intervention at this time, will maximize medical therapy aspirin 81 mg daily, statin, Toprol succinate 100 mg daily, continue amlodipine. Nephrology is following and managing patient's diuretics, recommendations appreciated Patient plan to undero paracentesis today, will re-evaluate after. Further recommendations to follow Nurse Practitioner note has been reviewed, I agree with a documented findings and plan of care. Patient was seen and examined. Objective - Vital Signs Vital signs: Vital Signs Temp 97.6 F 10/28/20 04:00 Pulse 80 05/03/21 08:25 Resp 20 10/28/20 04:00 BP 127/66 10/28/20 04:00 Pulse Ox 94 L 10/28/20 04:00 Intake & Output 10/27/20 10/28/20 10/28/20 18:59 06:59 18:59 Intake Total 729.16 Output Total 875 600 675 Balance -145.84 -600 -675 Weight 77.7 kg Intake: Intake, IV Titration 131.16 Amount Heparin Sod,Pork in 0.45% 131.16 NaCl 25,000 unit In 0.45 % NaCl 1 250ml.bag @ 12 UNITS/KG/HR 7.62 mls/hr IV .Q24H [facility] Rx#: [id number] Oral 598 Output: Urine 575 600 675 Post Void Residual 300 Other: Voiding Method Urinal Bedpan Urinal # Voids 2 - Labs CBC & Chem 7: 10/27/20 08:00 10/28/20 08:56 Labs: Abnormal Lab Results - Last 24 Hours (Table) 10/27/20 10/27/20 10/27/20 Range/Units 08:00 08:00 08:00 RBC 3.53 L (4.30-5.90) m/uL Hgb 10.4 L (13.0-17.5) gm/dL Hct 34.1 L (39.0-53.0) % MCHC 30.5 L (31.0-37.0) g/dL RDW 15.8 H (11.5-15.5) % Plt Count 83 L (150-450) k/uL Lymphocytes # 0.2 L (1.0-4.8) k/uL PT 12.6 H (9.0-12.0) sec INR 1.2 H (<1.2) APTT 39.4 H (22.0-30.0) sec Sodium 133 L (137-145) mmol/L BUN 74 H (9-20) mg/dL Creatinine 2.48 H (0.66-1.25) mg/dL Glucose 165 H (74-99) mg/dL POC Glucose (mg/dL) (75-99) mg/dL Calcium 7.8 L (8.4-10.2) mg/dL AST 69 H (17-59) U/L Total Protein 5.6 L (6.3-8.2) g/dL Albumin 2.9 L (3.5-5.0) g/dL 10/27/20 10/27/20 10/27/20 Range/Units 11:56 16:56 20:24 RBC (4.30-5.90) m/uL Hgb (13.0-17.5) gm/dL Hct (39.0-53.0) % MCHC (31.0-37.0) g/dL RDW (11.5-15.5) % Plt Count (150-450) k/uL Lymphocytes # (1.0-4.8) k/uL PT (9.0-12.0) sec INR (<1.2) APTT (22.0-30.0) sec Sodium (137-145) mmol/L BUN (9-20) mg/dL Creatinine (0.66-1.25) mg/dL Glucose (74-99) mg/dL POC Glucose (mg/dL) 188 H 216 H 227 H (75-99) mg/dL Calcium (8.4-10.2) mg/dL AST (17-59) U/L Total Protein (6.3-8.2) g/dL Albumin (3.5-5.0) g/dL Microbiology - Last 24 Hours (Table) 10/26/20 09:47 Blood Culture - Preliminary Blood No Growth after 24 hours 10/26/20 09:47 Blood Culture - Preliminary Blood No Growth after 24 hours
--- NOTE | 2020-10-28 13:50 | PN ---
PROGRESS NOTE The patient is seen for followup for acute kidney injury mostly ATN currently improving. Patient is currently being diuresed. Angiotensin receptor blockers are on hold. Blood pressure systolic around 127 to 114 mmHg. The patient has been voiding; 24-hour urine output about 1.4 L. PHYSICAL EXAMINATION: On examination today, blood pressure 114/68, heart rate 80 per minute. Patient is afebrile. EXAMINATION OF THE HEART: S1, S2. EXAMINATION OF THE LUNGS: Decreased breath sounds at bases. Abdomen is soft with significant ascites, distended. Examination of lower extremities edema 1+ with chronic skin changes. RAILROAD CONDUCTOR exam grossly intact. LABS: Labs show sodium 134, potassium 4.2, chloride 101, BUN 75, creatinine 2.3. ASSESSMENT: 1. Acute kidney injury, currently improving. The patient has evidence of volume overload, continue with Lasix, mostly acute tubular necrosis. 2. Acute hypoxic respiratory failure, being followed by Pulmonology. The patient is immunosuppressed. He is maintained on empiric antibiotics and he is also maintained on pentamidine for PCP prophylaxis. 3. Acute non ST elevation myocardial infarction. 4. Liver cirrhosis with ascites. 5. Status post bilateral lung transplantation for chronic obstructive pulmonary disease, pulmonary fibrosis in 2008, maintained on prednisone and Prograf. 6. Chronic kidney disease stage 3 with creatinine as low as 1.6 and also at 1.3 mg/dL but mostly staying around 1.7-2 mg/dL recently. PLAN: Continue with the Lasix. I would hold off on the fludrocortisone given the significant edema. Repeat labs in a.m. MMODL / IJN: [id number] /
[2020-10-28 16:49] LABS: Glucose,Whole Blood 171 mg/dL (75-99)
--- NOTE | 2020-10-28 18:26 | PN ---
PROGRESS NOTE This 70-year-old white male remains on DuoNeb updrafts, heparin IV, insulin, Reglan, Toprol-XL, Nitro-Bid, Prograf, bicarbonate. He had paracentesis, ultrasound today which is pending. Pulmonary saw the patient today. His creatinine is down to 2.3 from baseline of 2.6. Procalcitonin level was elevated. BNP was 28,700. Troponin is elevated at 3.7. Lungs show scattered wheeze and rhonchi. GI has possible ascites. Cardiovascular: S1, S2. Pulses are 1+ dorsalis pedis, posterior tibial. BUN 75, creatinine 2.3, hemoglobin is 10.4, white count 7.1. ASSESSMENT: 1. Acute hypoxemic respiratory failure. Continue on 4 L oxygen. 2. Pulmonary infiltrates, right more than the left. 3. Immunosuppressed, on Prograf and prednisone, under chronic immunosuppression. 4. Hypokalemic globulinemia. He gets IVIg as an outpatient. He is maintained on azithromycin, Biaxin due to antibiotic prophylaxis. 5. Chronic interstitial edema versus pneumonia. He is on pentamidine for PCP prophylaxis. He is covered with cefepime and Levaquin. 6. Acute udm-XX-oqqjaci-elevation myocardial infarction. Troponin 3.7. Status post bilateral lung transplantation for COPD. 7. Pulmonary fibrosis. He is Prograf, prednisone. 8. Liver cirrhosis. 9. Ascites. 10.Chronic kidney disease, stage 3. 11.Diabetes mellitus, type 2, insulin. 12.Chronic back pain. 13.Osteoarthritis. 14.Benign prostatic hypertrophy, status post transurethral resection of prostate. 15.Hypogammaglobulinemia. 16.Anxiety. 17.Depression. 18.Chronic immunotherapy. 19.Osteoporosis. He is going to get paracentesis. Continue cefepime, Levaquin, diuretics. Echo. Cardiology consult for non-STEMI. Prognosis guarded. MMODL / IJN: [id number] /
[2020-10-28 19:01] LABS: Appearance,BF Hazy; Color,BF Yellow; Nucleated Cells, Body Fluid 140 /uL; RBC, Body Fluid 240 /uL
[2020-10-28 19:03] LABS: Mononuclear WBC,Body Fluid 35 %; Polynuclear WBC,Body Fluid 65 %; Total Cells Counted,Body Fluid 100
[2020-10-28 20:30] LABS: Glucose,Whole Blood 218 mg/dL (75-99)
[2020-10-29 01:31] LABS: Total Protein, Body Fluid 1810 mg/dL
[2020-10-29 02:06] LABS: Amylase, Fluid Source Ascites; Glucose, BF Source Ascites; Glucose, Body Fluid 152 mg/dL; LDH, Body Fluid Source Ascites
[2020-10-29] MEDS: HYDROcodone/APAP 5-325MG 1 EACH TAB PO PRN ×2 (03:54→23:42)
[2020-10-29] MEDS: FUROSEMIDE 10 MG/ML 4 ML VIAL IV SCH ×3 (03:54→19:45)
[2020-10-29 06:12] LABS: Glucose,Whole Blood 75 mg/dL (75-99)
[2020-10-29] MEDS: PANTOPRAZOLE 40 MG TABLET PO SCH ×2 (06:22→17:56)
[2020-10-29] MEDS: IPRATROPIUM-ALBUTEROL 3 ML NEB INHALATION SCH ×4 (07:49→20:57)
[2020-10-29 08:01] LABS: Basophils % (A) 1 %; Eosinophils # (A) 0.1 k/uL (0-0.7); Eosinophils % (A) 1 %; HGB 10.6 gm/dL (13.0-17.5); Hypochromasia Slight; Lymphocytes # (A) 0.3 k/uL (1.0-4.8); Lymphocytes % (A) 4 %; MCH 30.6 pg (25.0-35.0); MCHC 32.1 g/dL (31.0-37.0); MCV 95.3 fL (80.0-100.0); Mean Platelet Volume 8.2; Monocytes # (A) 0.5 k/uL (0-1.0); Monocytes % (A) 9 %; Neutrophils % (A) 85 %; RBC 3.47 m/uL (4.30-5.90); RDW 15.3 % (11.5-15.5); WBC 5.9 k/uL (3.8-10.6)
[2020-10-29 08:09] LABS: Platelet Count 86 k/uL (150-450)
[2020-10-29 08:20] LABS: Albumin 2.5 g/dL (3.5-5.0); Calcium 7.6 mg/dL (8.4-10.2); Total Bilirubin 0.4 mg/dL (0.2-1.3); Total Protein 4.9 g/dL (6.3-8.2)
--- NOTE | 2020-10-29 09:47 | XR ---
EXAMINATION TYPE: XR chest 1V portable DATE OF EXAM: 10/29/2020 COMPARISON: 10/26/2020 INDICATION: Pneumonia TECHNIQUE: Single frontal view of the chest is obtained. FINDINGS: The heart size is normal. The pulmonary vasculature is normal. Scattered mild increased lung markings are through the right lung. This is improved over the interval . Postsurgical CABG changes are evident. IMPRESSION: 1. Improving right lung infiltrate. Continued follow-up is recommended.
--- NOTE | 2020-10-29 09:57 | US ---
EXAMINATION TYPE: US paracentesis abd w/image DATE OF EXAM: 10/28/2020 CLINICAL HISTORY: Ascites COMPARISON: 10/14/2020 LAP MACHINE TENDER: Dr. Sally Abdalla PROCEDURE: Preprocedure preliminary ultrasound imaging demonstrates large volume ascites. The procedure was discussed with the patient. The risks, complications, benefits, and alternatives we re discussed and any questions were answered. Informed consent was obtained. The patient was placed s upine on the ultrasound table and prepped and draped in the usual sterile fashion. All elements of maximal barrier technique were utilized. Under ultrasound guidance, access into the right lower quadrant was obtained with a 5 Icelandic one-step centesis catheter. Approximately 6 liters of clear serous fluid was removed. Catheter was removed and sterile bandage wa s applied. The patient was stable throughout the procedure and remained stable upon discharge from [facility]. IMPRESSION: Successful ultrasound-guided diagnostic and therapeutic paracentesis, with removal of 6 liters of viktor ar serous fluid.
[2020-10-29] MEDS: ASPIRIN 81 MG PO SCH (10:25)
[2020-10-29] MEDS: ATORVASTATIN 10 MG TAB PO SCH (10:25)
[2020-10-29] MEDS: METOPROLOL SUCCINATE (ER) 100 MG TAB.ER.24H PO SCH (10:26)
[2020-10-29] MEDS: MULTIVITAMINS, THERA 1 EACH TAB PO SCH (10:26)
[2020-10-29] MEDS: LEVOFLOXACIN 250 MG TAB PO SCH (10:26)
[2020-10-29] MEDS: METOCLOPRAMIDE 10 MG TAB PO SCH (10:26)
[2020-10-29] MEDS: predniSONE 5 MG TAB PO SCH (10:27)
[2020-10-29] MEDS: SODIUM BICARBONATE TAB 650 MG TAB PO SCH ×2 (10:28→19:45)
[2020-10-29] MEDS: SERTRALINE 50 MG TAB PO SCH (10:28)
[2020-10-29] MEDS: TACROLIMUS 1 MG CAP PO SCH ×2 (10:29→20:48)
[2020-10-29] MEDS: TACROLIMUS 0.5 MG CAP PO SCH ×2 (10:29→20:48)
[2020-10-29] MEDS: TAMSULOSIN 0.4 MG CAP.ER.24H PO SCH (10:30)
[2020-10-29] MEDS: CEFEPIME 2 GM in SODIUM CHLORIDE 0.9% 100 ML IVPB SCH (10:33)
[2020-10-29] MEDS: INSULIN DETEMIR (LEVEMIR) 100 UNIT/ML SYR SQ SCH (11:07)
[2020-10-29] MEDS ORDERED: INSULIN DETEMIR (LEVEMIR) 100 UNIT/ML SYR SQ SCH ×2 (11:15→21:00)
[2020-10-29 11:54] LABS: Glucose,Whole Blood 92 mg/dL (75-99)
--- NOTE | 2020-10-29 12:38 | P.PN ---
Progress Note - Text Progress Note Date: 10/28/20 REASON FOR FOLLOWUP: Pneumonia. INTERVAL HISTORY: The patient is afebrile. The patient is breathing comfortably. The patient denies any chest pain. Did have a cough, bringing up some sputum. No hemoptysis. No nausea, no vomiting. No abdominal pain or diarrhea. PHYSICAL EXAMINATION: Blood pressure 128/59, pulse of 62, temperature is 97.8. He is 98% on 4 L nasal cannula. General description is an elderly male lying in bed in no distress. Respiratory system: Unlabored breathing, decreased intensity of breath sounds. No wheeze. HEART: S1, S2. Regular rate and rhythm. ABDOMEN: Soft, no tenderness. Extremities: 1+ edema of feet. LABS: Hemoglobin is 10.4, white count 7.1. BUN of 74, creatinine is 2.48. blood cultures and sputum cultures pending DIAGNOSTIC IMPRESSION AND PLAN: Patient admitted to the hospital with shortness of breath, cough and purulent sputum, which is likely multifactorial in this patient who did have a component of fluid overload. However, likely component of pneumonia with significant elevated Procalcitonin with recent hospitalization, concern for possible resistant gram- negative. Continue with cefepime and Levaquin. follow sputum cultures to narrow down his antibiotics and monitor clinical course closely.
--- NOTE | 2020-10-29 12:40 | P.PN ---
Progress Note - Text Progress Note Date: 10/29/20 REASON FOR FOLLOWUP: Pneumonia. INTERVAL HISTORY: The patient remains to be afebrile. The patient is breathing comfortably. The patient denies any chest pain. pt cough has decreased in intensity with occasional sputum. No hemoptysis. No nausea, no vomiting. No abdominal pain or diarrhea. PHYSICAL EXAMINATION: Blood pressure 98/56, pulse of 62, temperature is 98.1. He is 98% on 4 L nasal cannula. General description is an elderly male lying in bed in no distress. Respiratory system: Unlabored breathing, decreased intensity of breath sounds. No wheeze. HEART: S1, S2. Regular rate and rhythm. ABDOMEN: Soft, no tenderness. Extremities: 1+ edema of feet. LABS: white count 7.1. BUN of 74, creatinine is 2.48. blood cultures and sputum cultures pending DIAGNOSTIC IMPRESSION AND PLAN: Patient admitted to the hospital with shortness of breath, cough and purulent sputum, which is likely multifactorial in this patient who did have a component of fluid overload and component of pneumonia with significant elevated Procalcitonin , pt to Continue with cefepime and Levaquin. sputum cultures so far pending and monitor clinical course closely.
--- NOTE | 2020-10-29 12:52 | P.PN ---
Subjective Progress Note Date: 10/29/20 10/28/2020 and seeing the patient for a follow-up. Clinically stool came slightly improved compared to yesterday. As mentioned earlier, the patient presented with worsening shortness of breath and hypoxic respiratory failure. The patient is a case of lung transplantation is patient has been maintained on immunosuppression with a combination of Prograf and prednisone. However, he has also developed liver failure/liver cirrhosis and the patient has recurrent ascites and he has required multiple paracenteses in the past and he has been receiving drainage almost every 2-3 weeks. The last paracentesis that was done on this patient was on 10/14/2020 and a total of 6.1 L of pleural fluid was drai kane. During this current admission, the patient's pro-calcitonin level was elevated. Based on the fact that his chronic immunosuppressed, the patient will be covered with antibiotics and I'm going to start the patient IV cefepime 2 g every 12 hours and the patient is also on Levaquin 250 mg by mouth on a daily basis.. The patient is currently on 2 L of oxygen with a pulse ox of 97%. He is afebrile. Paracentesis to follow. As far as the elevated protein calcitonin level, we are considering the possibility of a pneumonia versus spontaneous bacterial peritonitis. The patient is going to undergo the paracentesis and following that the ascitic fluid was sent for cultures. He remains also on IV Lasix and the patient is receiving Lasix 40 mg every 8 hours. Nephrology is on the case. The patient is on Prograf 2.5 mg twice a day and the patient is still on prednisone 5 mg by mouth daily. No altered mentation. No hepatic encephalopathy. Abdomen is quite distended with ascites. The creatinine is down to 2.3 from a baseline of 2.6 and the patient also has a component of chronic kidney disease. No altered mentation. Note that the patient's pro- calcitonin level was elevated at 62.1 and the patient's proBNP level was also elevated at 28,700 and the patient's troponin was elevated at 3.7. On today's evaluation of 10/29/2020, seeing the patient for a follow-up. The patient is feeling well. Less short of breath compared to yesterday. The patient underwent a large volume paracentesis yesterday without a total of 6 L of ascitic fluid was aspirated without any complications. The patient is also on IV Lasix. He is receiving Lasix 40 g IV every 8 hours. Is producing adeq uate amount of urine output. He is less short of breath compared to yesterday. He is currently on 2 L of oxygen by nasal cannula with a pulse is 98%. I tried him on room air oxygen and we are monitoring the pulse ox on room air accordingly. He is afebrile. He remains on broad-spectrum antibiotics and the patient is receiving a combination of cefepime and Levaquin. The creatinine is down to 2.1 with a BUN of 81. Sodium level is at 135. Potassium level is at 4. White cell count dropped down to 5.9. The stricture which showed a low cellular count and the cultures of been negative. As such, I doubt the possibility of spontaneous bacterial peritonitis. Echocardiogram was on the results are still pending for now. Follow-up chest x-ray was also ordered for tomorrow. Tolerating diet. No altered mentation. No chest pain. Objective - Vital Signs Vital signs: Vital Signs Temp 98.1 F 10/29/20 08:00 Pulse 82 10/29/20 12:36 Resp 16 10/29/20 12:36 BP 98/56 10/29/20 11:10 Pulse Ox 98 10/29/20 11:10 Intake & Output 10/28/20 10/29/20 10/29/20 18:59 06:59 18:59 Intake Total 1360 600 480 Output Total 1850 650 450 Balance -490 -50 30 Weight 77.7 kg 77 kg Intake: Intake, IV Titration 100 Amount Cefepime 2 gm In Sodium 100 Chloride 0.9% 100 ml @ 25 mls/hr IVPB Q24HR [facility] Rx #:[id number] Oral 1260 600 480 Output: Urine 1850 650 450 Other: Voiding Method Bedpan Urinal # Voids 2 1 - Exam Gen. appearance the patient is a mild degree of respiratory distress the patient is currently on 2 L of oxygen by nasal cannula. Head exam was generally normal. There was no scleral icterus or corneal arcus. Mucous membranes were moist. Neck was supple and without jugular venous distension, thyromegaly, or carotid bruits. Carotids were easily palpable bilaterally. There was no adenopathy. Examination of the lungs shows a clamshell incision over the anterior chest related to transplantation. The patient has crackles in right midlung area anteriorly and posteriorly Cardiac exam revealed the PMI to be normally situated and sized. The rhythm was regular and no extrasystoles were noted during several minutes of auscultation. The first and second heart sounds were normal and physiologic splitting of the second heart sound was noted. There were no murmurs, rubs, clicks, or gallops. Abdominal exam revealed normal bowel sounds. The abdomen was soft, non-tender, and without masses, organomegaly, or appreciable enlargement of the abdominal aorta. The patient has an abdominal wall hernia on examination , the patient also has some fluid wave and shifting dullness. No direct tenderness, no rebound tenderness or guarding, and abdomen is significantly distended and the patient is in ascites secondary to liver cirrhosis. The ascitic fluid has diminished in size compared to yesterday as the patient underwent a large old paracentesis. Examination of the extremities revealed easily palpable radial, femoral and pedal pulses. There was no cyanosis, clubbing or edema. Examination of the skin revealed no evidence of significant rashes, suspicious appearing nevi or other concerning lesions. - Labs CBC & Chem 7: 10/29/20 06:40 10/29/20 06:40 Labs: Abnormal Lab Results - Last 24 Hours (Table) 10/28/20 10/28/20 10/29/20 Range/Units 16:47 20:20 06:40 RBC 3.47 L (4.30-5.90) m/uL Hgb 10.6 L (13.0-17.5) gm/dL Hct 33.0 L (39.0-53.0) % Plt Count 86 L (150-450) k/uL Lymphocytes # 0.3 L (1.0-4.8) k/uL Sodium (137-145) mmol/L BUN (9-20) mg/dL Creatinine (0.66-1.25) mg/dL Glucose (74-99) mg/dL POC Glucose (mg/dL) 171 H 218 H (75-99) mg/dL Calcium (8.4-10.2) mg/dL Total Protein (6.3-8.2) g/dL Albumin (3.5-5.0) g/dL 10/29/20 Range/Units 06:40 RBC (4.30-5.90) m/uL Hgb (13.0-17.5) gm/dL Hct (39.0-53.0) % Plt Count (150-450) k/uL Lymphocytes # (1.0-4.8) k/uL Sodium 135 L (137-145) mmol/L BUN 81 H (9-20) mg/dL Creatinine 2.16 H (0.66-1.25) mg/dL Glucose 40 L* (74-99) mg/dL POC Glucose (mg/dL) (75-99) mg/dL Calcium 7.6 L (8.4-10.2) mg/dL Total Protein 4.9 L (6.3-8.2) g/dL Albumin 2.5 L (3.5-5.0) g/dL Microbiology - Last 24 Hours (Table) 10/26/20 09:47 Blood Culture - Preliminary Blood No Growth after 72 hours 10/26/20 09:47 Blood Culture - Preliminary Blood No Growth after 72 hours 10/28/20 20:15 Gram Stain - Preliminary Sputum Sputum Culture - Preliminary 10/28/20 15:06 Gram Stain - Preliminary Paracentesis Fluid Body Fluid Culture - Preliminary Assessment and Plan Plan: 1 acute hypoxic respiratory failure, currently on 2 L of oxygen by nasal cannula. The patient had diffuse breath and pulmonary infiltrates right more than left. The patient is immunosuppressed with a combination of Prograf and prednisone. The patient has also underlying chronic immunosuppression with hypogammaglobulinemia receiving IVIG on outpatient basis. He has been maintained on Zithromax as an antibiotic prophylaxis. His pro-calcitonin level was elevated. As such a pneumonia was suspected. I favor interstitial edema/fluid overload. The patient had similar hospitalizations twice this year for the same problem. He is currently improving. His post-paracentesis. Is also on diuretics. Echo of the heart was done and the results are still pending for now. 2 acute non-STEMI with a troponin maxed at 3.7 3 history of bilateral lung transplantation for COPD/pulmonary fibrosis performed in 2008, maintained on a combination of Prograf and prednisone 4 liver cirrhosis with secondary ascites and abdominal distention , post large volume paracentesis 5 chronic stage III kidney disease, with a component of an acute kidney injury on top of chronic kidney disease, acute kidney injury is improving and the creatinine is down to 2.1 6 diabetes mellitus type 2, maintained on Levemir insulin 20 units twice a day 7 chronic back pain 8 osteoarthritis 9 BPH, Post TURP 10 HYPOGAMMAGLOBULINEMIA RECEIVING IVIG ON OUTPATIENT BASIS 11 chronic anxiety/depression 12 chronic immunosuppression utilizing a combination of Prograf and prednisone 13 osteoporosis on Fosamax Plan Paracentesis was done and the patient had a total of 6 L of ascitic fluid removed. The fluid culture has been negative. Continue IV Lasix Monitor electrolytes Monitor renal function Keep same antibiotic coverage Awaiting the results of the echocardiogram Repeat chest x-ray in the morning Pro-calcitonin a.m. Cardiology consultation regarding the acute non-STEMI Monitor troponins Currently free of any chest pain We'll continue to follow
[2020-10-29] MEDS: INSULIN ASPART (NovoLOG) 100 UNIT/ML VIAL SQ SCH ×3 (12:54→20:47)
[2020-10-29] MEDS: NITROGLYCERIN OINT 1 INCH/GM PACKET TOPICAL SCH ×4 (12:54→22:53)
[2020-10-29] MEDS: amLODIPine 10 MG TAB PO SCH (13:49)
--- NOTE | 2020-10-29 15:29 | PN ---
PROGRESS NOTE Patient is seen for followup for acute kidney injury. Currently he is being diuresed. Renal function continues to improve. Overall, patient states he is feeling better. PHYSICAL EXAMINATION: On examination today, blood pressure was 98/56, heart rate 62 per minute. He is afebrile. EXAMINATION OF THE HEART: S1 and S2. EXAMINATION OF LUNGS: Bilateral breath sounds are heard. ABDOMEN: Soft, distended with ascites. Examination of lower extremities shows chronic skin changes, edema 1+ bilaterally. 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 LAB: Hemoglobin 10.6, sodium 135, potassium 4.0, BUN 81, creatinine 2.16, glucose 40, albumin 2.5. ASSESSMENT: 1. Acute kidney injury, acute tubular necrosis, currently improving. The patient is volume-overloaded. He is being diuresed. He seems to be tolerating that well and overall he is feeling better. 2. Acute hypoxic respiratory failure, maintained on empiric antibiotics. Patient has been immunosuppressed. He is maintained on antibiotic coverage for fortunistic infections as well. 3. Acute [id number]-[id number] myocardial infarction. 4. Liver cirrhosis with ascites. 5. Status post bilateral lung transplantation for chronic obstructive pulmonary disease, pulmonary fibrosis, 2008, maintained on prednisone and Prograf. 6. Chronic kidney disease, stage 3; baseline creatinine 1.6 but as low as 1.3, but most recently staying now at about 1.7 to 2 mg/dL. Patient has had multiple episodes of acute kidney injury. PLAN: Continue off of fludrocortisone. Continue with Lasix for now. Monitor electrolytes. Also continue with the sodium bicarb. Prograf level was 6 on 10/27/2020, which is appropriate. MMODL / IJN: [id number] /
[2020-10-29 16:30] LABS: Glucose,Whole Blood 78 mg/dL (75-99)
--- NOTE | 2020-10-29 16:37 | P.PN ---
Subjective This is a very pleasant 70-year-old gentleman with a known history of chronic back pain, anemia, chronic kidney disease stage III, diabetes mellitus, acute hypoxemic respiratory failure, recurrent ascites with paracentesis required nearly every 2 weeks. Last paracentesis here 10/14/2020 with 6.1 L removed, immunosuppressive therapy treated with Prograf and prednisone secondary to transplanted lungs back in 2008. He does not follow with a golf cart attendant. We are consulted for elevated troponin and conestive heart failure. His proBNP is elevated 28,700. His EKG did not reveal any acute changes. Troponin 5.1--*>4.7-->3.7. 10/28/20: Patient underwent paracentesis with 6 L of clear serous fluid removed 10/29/20: Patient seen and examined at bedside. No acute distress. Denies chest pain. States his breathing has improved. Currently being maintained on aspirin 81 mg daily, atorvastatin 10 mg daily, Lasix 40 mg IV every 8 hours, metoprolol succinate 100 mg daily. Patient with 2.5 L urine output over the past 24 hours. Weight has been unchanged. Echocardiogram 10/27/20EF between 55-60%, aortic valve is mildly thickened, mild aortic regurgitation, there is an Ecotrin structure on the non-coronary cusp. Mitral valves are mildly thickened, mild mitral regurgitation, mild tricuspid regurgitation, mild pulmonary hypertension with an RVSP of 44.5 mmHg GENERAL: Well-appearing, well-nourished and in no acute distress. VS: Pressure 98/56, heart rate 62, afebrile, 96% on 2 L NECK: Supple without JVD or thyromegaly. LUNGS: Breath sounds clear to auscultation bilaterally. Respiration equal and unlabored. No wheezes, rales or rhonchi. HEART: Regular rate and rhythm without murmurs, rubs or gallops. S1 and S2 heard. EXTREMITIES: Right sided abdomen with paracentesis site covered with a dressing. Normal range of motion. Trace bilateral lower extremity edema No clubbing or cyanosis. Peripheral pulses intact. ASSESSMENT Acute hypoxic respiratory failure Elevated troponin, cannot exclude NSTEMI, EKG with no acute changes. Patient den ies chest discomfort. 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 Baker Nurse Practitioner note has been reviewed, I agree with a documented findings and plan of care. Patient was seen and examined. Objective - Vital Signs Vital signs: Vital Signs Temp 98.1 F 10/29/20 08:00 Pulse 62 10/29/20 08:00 Resp 18 10/29/20 08:00 BP 97/57 10/29/20 08:00 Pulse Ox 96 10/29/20 08:00 Intake & Output 10/28/20 10/29/20 10/29/20 18:59 06:59 18:59 Intake Total 1360 600 240 Output Total 1850 650 200 Balance -490 -50 40 Weight 77.7 kg 77 kg Intake: Intake, IV Titration 100 Amount Cefepime 2 gm In Sodium 100 Chloride 0.9% 100 ml @ 25 mls/hr IVPB Q24HR [facility] Rx #:[id number] Oral 1260 600 240 Output: Urine 1850 650 200 Other: Voiding Method Bedpan Urinal # Voids 2 1 - Labs CBC & Chem 7: 10/29/20 06:40 10/29/20 06:40 Labs: Abnormal Lab Results - Last 24 Hours (Table) 10/28/20 10/28/20 10/28/20 Range/Units 11:35 16:47 20:20 RBC (4.30-5.90) m/uL Hgb (13.0-17.5) gm/dL Hct (39.0-53.0) % Plt Count (150-450) k/uL Lymphocytes # (1.0-4.8) k/uL Sodium (137-145) mmol/L BUN (9-20) mg/dL Creatinine (0.66-1.25) mg/dL Glucose (74-99) mg/dL POC Glucose (mg/dL) 140 H 171 H 218 H (75-99) mg/dL Calcium (8.4-10.2) mg/dL Total Protein (6.3-8.2) g/dL Albumin (3.5-5.0) g/dL 10/29/20 10/29/20 Range/Units 06:40 06:40 RBC 3.47 L (4.30-5.90) m/uL Hgb 10.6 L (13.0-17.5) gm/dL Hct 33.0 L (39.0-53.0) % Plt Count 86 L (150-450) k/uL Lymphocytes # 0.3 L (1.0-4.8) k/uL Sodium 135 L (137-145) mmol/L BUN 81 H (9-20) mg/dL Creatinine 2.16 H (0.66-1.25) mg/dL Glucose 40 L* (74-99) mg/dL POC Glucose (mg/dL) (75-99) mg/dL Calcium 7.6 L (8.4-10.2) mg/dL Total Protein 4.9 L (6.3-8.2) g/dL Albumin 2.5 L (3.5-5.0) g/dL Microbiology - Last 24 Hours (Table) 10/28/20 20:15 Gram Stain - Preliminary Sputum Sputum Culture - Preliminary 10/28/20 15:06 Gram Stain - Preliminary Paracentesis Fluid Body Fluid Culture - Preliminary 10/26/20 09:47 Blood Culture - Preliminary Blood No Growth after 48 hours 10/26/20 09:47 Blood Culture - Preliminary Blood No Growth after 48 hours
--- NOTE | 2020-10-29 17:42 | PN ---
PROGRESS NOTE This is a 30-year-old white male with acute kidney injury, ascites, status post paracentesis. His blood pressure 98/56, heart rate 62 per minute. He is afebrile. He has mild edema and ascites, fluid wave in his belly. Cardiovascular: S1, S2. Lungs reveal rales at the base. Hemoglobin is 10.6, sodium 135, potassium 4.0, BUN 31, creatinine 2.16. Albumin is 2.5. He has acute kidney injury, acute tubular necrosis, hypoxemic respiratory failure secondary to bilateral pneumonia, acute non-STEMI, liver cirrhosis, ascites, status post lung , chronic kidney disease. Continues to be seen by Infectious Disease and Pulmonology. He is feeling much better since yesterday. He had 6 L of ascitic fluid removed yesterday. He is remaining on IV Lasix, 2 L of oxygen. He does not wear oxygen at home. He remains on broad-spectrum antibiotics, cefepime and Levaquin. Sodium was 135, potassium 4, white count 5.9. Echo is pending. Tolerating diet. ASSESSMENT: 1. Acute hypoxemic respiratory failure. 2. Hypogammaglobulinemia. 3. Probable bilateral pneumonia. 4. Acute hsd-NQ-speirrq-elevation myocardial infarction. 5. Bilateral lung transplantation. 6. Liver cirrhosis with ascites. Doubt peritonitis of the belly. 7. Type 2 diabetes mellitus. 8. Osteoarthritis. 9. Benign prostatic hypertrophy. 10.Chronic anxiety. 11.Depression. Try to wean him off oxygen. Paracentesis has been done. Continue IV Lasix, IV antibiotics. Recheck procalcitonin, chest x-ray. Cardiology continues to treat non- STEMI but is not really being aggressive with treatment. Please see further orders. MMODL / IJN: [id number] /
[2020-10-29 20:12] LABS: Glucose,Whole Blood 99 mg/dL (75-99)
[2020-10-30] MEDS: FUROSEMIDE 10 MG/ML 4 ML VIAL IV SCH ×3 (04:22→20:13)
[2020-10-30 06:19] LABS: Glucose,Whole Blood 159 mg/dL (75-99)
[2020-10-30] MEDS: PANTOPRAZOLE 40 MG TABLET PO SCH ×2 (06:19→16:44)
[2020-10-30] MEDS: INSULIN ASPART (NovoLOG) 100 UNIT/ML VIAL SQ SCH ×4 (06:20→20:14)
[2020-10-30] MEDS: IPRATROPIUM-ALBUTEROL 3 ML NEB INHALATION SCH ×4 (08:26→20:25)
--- NOTE | 2020-10-30 08:50 | ECHOF ---
Referral Reason:chf MEASUREMENTS -------- HEIGHT: 167.6 cm WEIGHT: 63.5 kg BP: RVIDd: 2.8 cm (< 3.3) IVSd: 1.0 cm (0.6 - 1.1) LVIDd: 3.1 cm (3.9 - 5.3) LVPWd: 1.3 cm (0.6 - 1.1) IVSs: 1.9 cm LVIDs: 0.8 cm LVPWs: 0.9 cm Ao Diam: 3.3 cm (2.0 - 3.7) AV Cusp: 2.1 cm (1.5 - 2.6) LA Diam: 4.9 cm (2.7 - 3.8) MV EXCURSION: 22.213 mm (> 18.000) MV EF SLOPE: 82 mm/s (70 - 150) EPSS: 0.3 cm MV E Bert: 0.98 m/s MV DecT: 150 ms MV A Bert: 0.64 m/s MV E/A Ratio: 1.52 AR PHT: 480 ms RAP: 5.00 mmHg RVSP: 44.50 mmHg FINDINGS -------- This was a technically good study. The left ventricular size is normal. There is mild concentric left ventricular hypertrophy. Overa ll left ventricular systolic function is normal with, an EF between 55 - 60 %. The right ventricle is normal in size. The left atrium is moderately dilated. The right atrial size is normal. Aortic valve is trileaflet and is mildly thickened. There is mild aortic regurgitation. There is an echo dense structure on the non coronary cusp. The mitral valve is normal. The mitral valve leaflets are mildly thickened. Mild mitral regurgita tion is present. The tricuspid valve appears structurally normal. Mild tricuspid regurgitation present. There is m ild pulmonary hypertension. The right ventricular systolic pressure, as measured by Doppler, is 44. 50mmHg. There is no pulmonic regurgitation present. The aortic root size is normal. IVC Not well visulized. There is no pericardial effusion. CONCLUSIONS -------- 1. The left ventricular size is normal. 2. There is mild concentric left ventricular hypertrophy. 3. Overall left ventricular systolic function is normal with, an EF between 55 - 60 %. 4. Aortic valve is trileaflet and is mildly thickened. 5. There is mild aortic regurgitation. 6. There is an echo dense structure on the non coronary cusp. 7. The mitral valve leaflets are mildly thickened. 8. Mild mitral regurgitation is present. 9. Mild tricuspid regurgitation present. 10. There is mild pulmonary hypertension. 11. The right ventricular systolic pressure, as measured by Doppler, is 44.50mmHg. 12. There is no pericardial effusion. MOCK UP ASSEMBLER: Meg Saenz RDCS
[2020-10-30] MEDS: ATORVASTATIN 10 MG TAB PO SCH (09:15)
[2020-10-30] MEDS: HYDROcodone/APAP 5-325MG 1 EACH TAB PO PRN ×2 (09:15→16:44)
[2020-10-30] MEDS: ASPIRIN 81 MG PO SCH (09:15)
[2020-10-30] MEDS: METOPROLOL SUCCINATE (ER) 100 MG TAB.ER.24H PO SCH (09:15)
[2020-10-30] MEDS: MULTIVITAMINS, THERA 1 EACH TAB PO SCH (09:15)
[2020-10-30] MEDS: SODIUM BICARBONATE TAB 650 MG TAB PO SCH ×2 (09:15→20:14)
[2020-10-30] MEDS: TACROLIMUS 0.5 MG CAP PO SCH ×2 (09:16→20:13)
[2020-10-30] MEDS: TACROLIMUS 1 MG CAP PO SCH ×2 (09:16→20:13)
[2020-10-30] MEDS: SERTRALINE 50 MG TAB PO SCH (09:16)
[2020-10-30] MEDS: TAMSULOSIN 0.4 MG CAP.ER.24H PO SCH (09:16)
[2020-10-30] MEDS: LEVOFLOXACIN 250 MG TAB PO SCH (09:16)
[2020-10-30] MEDS: predniSONE 5 MG TAB PO SCH (09:16)
[2020-10-30] MEDS: NITROGLYCERIN OINT 1 INCH/GM PACKET TOPICAL SCH (09:16)
[2020-10-30] MEDS: METOCLOPRAMIDE 10 MG TAB PO SCH (09:16)
[2020-10-30] MEDS: CEFEPIME 2 GM in SODIUM CHLORIDE 0.9% 100 ML IVPB SCH (09:19)
--- NOTE | 2020-10-30 10:21 | P.PN ---
Subjective Progress Note Date: 10/30/20 10/28/2020 and seeing the patient for a follow-up. Clinically stool came slightly improved compared to yesterday. As mentioned earlier, the patient presented with worsening shortness of breath and hypoxic respiratory failure. The patient is a case of lung transplantation is patient has been maintained on immunosuppression with a combination of Prograf and prednisone. However, he has also developed liver failure/liver cirrhosis and the patient has recurrent ascites and he has required multiple paracenteses in the past and he has been receiving drainage almost every 2-3 weeks. The last paracentesis that was done on this patient was on 10/14/2020 and a total of 6.1 L of pleural fluid was drai kane. During this current admission, the patient's pro-calcitonin level was elevated. Based on the fact that his chronic immunosuppressed, the patient will be covered with antibiotics and I'm going to start the patient IV cefepime 2 g every 12 hours and the patient is also on Levaquin 250 mg by mouth on a daily basis.. The patient is currently on 2 L of oxygen with a pulse ox of 97%. He is afebrile. Paracentesis to follow. As far as the elevated protein calcitonin level, we are considering the possibility of a pneumonia versus spontaneous bacterial peritonitis. The patient is going to undergo the paracentesis and following that the ascitic fluid was sent for cultures. He remains also on IV Lasix and the patient is receiving Lasix 40 mg every 8 hours. Nephrology is on the case. The patient is on Prograf 2.5 mg twice a day and the patient is still on prednisone 5 mg by mouth daily. No altered mentation. No hepatic encephalopathy. Abdomen is quite distended with ascites. The creatinine is down to 2.3 from a baseline of 2.6 and the patient also has a component of chronic kidney disease. No altered mentation. Note that the patient's pro- calcitonin level was elevated at 62.1 and the patient's proBNP level was also elevated at 28,700 and the patient's troponin was elevated at 3.7. On today's evaluation of 10/29/2020, seeing the patient for a follow-up. The patient is feeling well. Less short of breath compared to yesterday. The patient underwent a large volume paracentesis yesterday without a total of 6 L of ascitic fluid was aspirated without any complications. The patient is also on IV Lasix. He is receiving Lasix 40 g IV every 8 hours. Is producing adeq uate amount of urine output. He is less short of breath compared to yesterday. He is currently on 2 L of oxygen by nasal cannula with a pulse is 98%. I tried him on room air oxygen and we are monitoring the pulse ox on room air accordingly. He is afebrile. He remains on broad-spectrum antibiotics and the patient is receiving a combination of cefepime and Levaquin. The creatinine is down to 2.1 with a BUN of 81. Sodium level is at 135. Potassium level is at 4. White cell count dropped down to 5.9. The stricture which showed a low cellular count and the cultures of been negative. As such, I doubt the possibility of spontaneous bacterial peritonitis. Echocardiogram was on the results are still pending for now. Follow-up chest x-ray was also ordered for tomorrow. Tolerating diet. No altered mentation. No chest pain. 10/30/2020 patient is being seen for a follow-up. Currently is on room air oxygen. The chest x-ray from yesterday was already improving and the patient was kept on IV Lasix and he is post large volume paracentesis. His pro- calcitonin level is improving. It is currently down to 18.3. He remains on antibiotics and he is on a combination of cefepime and Levaquin. He remains on Prograf. He is also on 5 mg of prednisone. He is on Lasix at a dose of 40 mg every 8 hours. Fluid balance has been -565 mL over the past 24 hours. Follow- up blood work is still pending for now. Echo of the heart was completed and it showed a preserved LV function with an EF of around 55-60%, mild concentric LVH, [id number] hypertension. No altered mentation. No chest pain. He is resting comfortably in bed. Reported fever. Still has some ascites which is sm aller post paracentesis. Objective - Vital Signs Vital signs: Vital Signs Temp 97.4 F L 10/30/20 04:00 Pulse 64 10/30/20 08:43 Resp 16 10/30/20 04:00 BP 115/64 10/30/20 04:00 Pulse Ox 96 10/30/20 04:00 Intake & Output 10/29/20 10/30/20 10/30/20 18:59 06:59 18:59 Intake Total 960 480 Output Total 550 975 100 Balance 410 -975 380 Weight 78 kg Intake: Oral 960 480 Output: Urine 550 975 100 Other: # Bowel Movements 1 1 1 - Exam Gen. appearance the patient is a mild degree of respiratory distress the patient is currently on oxygen RA Head exam was generally normal. There was no scleral icterus or corneal arcus. Mucous membranes were moist. Neck was supple and without jugular venous distension, thyromegaly, or carotid bruits. Carotids were easily palpable bilaterally. There was no adenopathy. Examination of the lungs shows a clamshell incision over the anterior chest related to transplantation. The patient has crackles in right midlung area anteriorly and posteriorly Cardiac exam revealed the PMI to be normally situated and sized. The rhythm was regular and no extrasystoles were noted during several minutes of auscultation. The first and second heart sounds were normal and physiologic splitting of the second heart sound was noted. There were no murmurs, rubs, clicks, or gallops. Abdominal exam revealed normal bowel sounds. The abdomen was soft, non-tender, and without masses, organomegaly, or appreciable enlargement of the abdominal aorta. The patient has an abdominal wall hernia on examination , the patient also has some fluid wave and shifting dullness. No direct tenderness, no rebound tenderness or guarding, and abdomen is significantly distended and the patient is in ascites secondary to liver cirrhosis. The ascitic fluid has diminished in size compared to yesterday as the patient underwent a large old paracentesis. Examination of the extremities revealed easily palpable radial, femoral and pe thalia pulses. There was no cyanosis, clubbing or edema. Examination of the skin revealed no evidence of significant rashes, suspicious appearing nevi or other concerning lesions. - Labs CBC & Chem 7: 10/29/20 06:40 10/29/20 06:40 Labs: Abnormal Lab Results - Last 24 Hours (Table) 10/29/20 10/30/20 Range/Units 06:40 06:18 POC Glucose (mg/dL) 159 H (75-99) mg/dL Procalcitonin 18.35 H (0.02-0.09) ng/mL Microbiology - Last 24 Hours (Table) 10/28/20 15:06 Gram Stain - Preliminary Paracentesis Fluid Body Fluid Culture - Preliminary 10/26/20 09:47 Blood Culture - Preliminary Blood No Growth after 72 hours 10/26/20 09:47 Blood Culture - Preliminary Blood No Growth after 72 hours 10/28/20 20:15 Gram Stain - Preliminary Sputum Sputum Culture - Preliminary Assessment and Plan Plan: 1 acute hypoxic respiratory failure, currently on RA oxygen . The patient had diffuse breath and pulmonary infiltrates right more than left. The patient is immunosuppressed with a combination of Prograf and prednisone. The patient has also underlying chronic immunosuppression with hypogammaglobulinemia receiving IVIG on outpatient basis. He has been maintained on Zithromax as an antibiotic prophylaxis. His pro-calcitonin level was elevated. As such a pneumonia was suspected. The patient is improving. I'm not absolutely sure whether this is a pneumonia. He has had several bouts of a similar presentation with diffuse but the pulmonary infiltrates and the patient has responded to diuretics and antibiotics. His pro-calcitonin level is improving. He still has crackles and the patient will be continued on diuretics for another 24 hours. He is on room air oxygen. He is making excellent urine output at this point in time. Awaiting follow-up labs. Chest x-ray from yesterday was showing improvement of the bilateral pulmonary infiltrates. 2 acute non-STEMI with a troponin maxed at 3.7 3 history of bilateral lung transplantation for COPD/pulmonary fibrosis performed in 2008, maintained on a combination of Prograf and prednisone 4 liver cirrhosis with secondary ascites and abdominal distention , post large volume paracentesis 5 chronic stage III kidney disease, with a component of an acute kidney injury on top of chronic kidney disease, acute kidney injury is improving and the creatinine is down to 2.1 6 diabetes mellitus type 2, maintained on Levemir insulin 20 units twice a day 7 chronic back pain 8 osteoarthritis 9 BPH, Post TURP 10 HYPOGAMMAGLOBULINEMIA RECEIVING IVIG ON OUTPATIENT BASIS 11 chronic anxiety/depression 12 chronic immunosuppression utilizing a combination of Prograf and prednisone 13 osteoporosis on Fosamax Plan Paracentesis was done and the patient had a total of 6 L of ascitic fluid removed. The fluid culture has been negative. Continue IV Lasix for another 24 hours Monitor electrolytes Monitor renal function Stop cefepime and switch this patient to Levaquin only Echo of the heart was noted and the patient is a preserved LV function Repeat chest x-ray in the morning Pro-calcitonin a.m. is improving. The level will be monitored. Cardiology consultation regarding the acute non-STEMI Monitor troponins Currently free of any chest pain We'll continue to follow
--- NOTE | 2020-10-30 11:03 | P.PN ---
Subjective This is a pleasant 70-year-old male past medical history significant for chronic kidney disease, diabetes mellitus, recurrent ascites requiring paracentesis, chronic back pain and anemia. We are following secondary to elevated troponins. He is currently being diuresed per nephrology. Blood pressure 115/64 heart rate 64 afebrile and maintaining oxygen saturation on room air. He denies symptoms of chest pain and breathing is stable. Echocardiogram obtained revealed preserved LV systolic function with EF 55-60%, mild MR, mild TR and mild pulmonary hypertension with RVSP 44 mmHg. GENERAL: Well-appearing, well-nourished and in no acute distress. NECK: Supple without JVD or thyromegaly. LUNGS: Breath sounds clear to auscultation bilaterally. Respiration equal and unlabored. No wheezes, rales or rhonchi. HEART: Regular rate and rhythm without murmurs, rubs or gallops. S1 and S2 heard. EXTREMITIES: Normal range of motion, trace bilateral lower extremity edema. No clubbing or cyanosis. Peripheral pulses intact. ASSESSMENT Acute hypoxic respiratory failure NSTEMI Acute on chronic kidney disease Diabetes mellitus Recurrent ascites s/p paracentesis History of b/l lung transplant COPD Liver cirrhosis PLAN Continue aspirin, atorvastatin and toprol as previously ordered. No MERARY/ARB due to renal function. Diuretic management per nephrology. We will follow along as needed, follow up with Dr. Baker upon discharge. Nurse Practitioner note has been reviewed, I agree with a documented findings and plan of care. Patient was seen and examined. Objective - Vital Signs Vital signs: Vital Signs Temp 97.4 F L 10/30/20 04:00 Pulse 64 10/30/20 08:43 Resp 16 10/30/20 04:00 BP 115/64 10/30/20 04:00 Pulse Ox 96 10/30/20 04:00 Intake & Output 10/29/20 10/30/20 10/30/20 18:59 06:59 18:59 Intake Total 960 480 Output Total 550 975 100 Balance 410 -975 380 Weight 78 kg Intake: Oral 960 480 Output: Urine 550 975 100 Other: # Bowel Movements 1 1 1 - Labs CBC & Chem 7: 10/29/20 06:40 10/29/20 06:40 Labs: Abnormal Lab Results - Last 24 Hours (Table) 10/29/20 10/30/20 Range/Units 06:40 06:18 POC Glucose (mg/dL) 159 H (75-99) mg/dL Procalcitonin 18.35 H (0.02-0.09) ng/mL Microbiology - Last 24 Hours (Table) 10/28/20 15:06 Gram Stain - Preliminary Paracentesis Fluid Body Fluid Culture - Preliminary 10/26/20 09:47 Blood Culture - Preliminary Blood No Growth after 72 hours 10/26/20 09:47 Blood Culture - Preliminary Blood No Growth after 72 hours 10/28/20 20:15 Gram Stain - Preliminary Sputum Sputum Culture - Preliminary
[2020-10-30 11:21] LABS: Basophils % (A) 1 %; Eosinophils # (A) 0.1 k/uL (0-0.7); Eosinophils % (A) 2 %; HCT 35.8 % (39.0-53.0); HGB 11.2 gm/dL (13.0-17.5); Hypochromasia Slight; Lymphocytes # (A) 0.4 k/uL (1.0-4.8); Lymphocytes % (A) 10 %; MCHC 31.1 g/dL (31.0-37.0); MCV 96.4 fL (80.0-100.0); Mean Platelet Volume 8.6; Monocytes # (A) 0.5 k/uL (0-1.0); Monocytes % (A) 12 %; Neutrophils % (A) 73 %; RBC 3.72 m/uL (4.30-5.90); RDW 15.5 % (11.5-15.5); WBC 4.2 k/uL (3.8-10.6)
[2020-10-30 11:32] LABS: Albumin 2.5 g/dL (3.5-5.0); Calcium 8.3 mg/dL (8.4-10.2); Potassium 4.2 mmol/L (3.5-5.1); Total Bilirubin 0.5 mg/dL (0.2-1.3); Total Protein 4.9 g/dL (6.3-8.2)
[2020-10-30 11:38] LABS: Platelet Count 74 k/uL (150-450)
--- NOTE | 2020-10-30 11:46 | PN ---
PROGRESS NOTE DATE OF SERVICE: 10/30/2020 REASON FOR FOLLOWUP: Pneumonia. INTERVAL HISTORY: The patient is currently afebrile. The patient is breathing more comfortably. Patient denies having any chest pain or shortness of breath. He did have pain to the left lower lung, especially taking a deep breath and coughing though coughing has decreased. No vomiting. No abdominal pain, no diarrhea. PHYSICAL EXAMINATION: Blood pressure is 115/64, pulse of 64, temperature 97.4. He is 96% on room air. General description is an elderly male up in the chair in no distress. RESPIRATORY SYSTEM: Unlabored breathing. A few coarse crackles at the left base. No wheeze. HEART: S1, S2. Regular rate and rhythm. ABDOMEN: Soft, no tenderness. LABS: Hemoglobin is 10.6, white count of 5.9, BUN of 81, creatinine is 2.16. Cultures so far negative. DIAGNOSTIC IMPRESSION AND PLAN: Patient admitted to the hospital with left lower lobe pneumonia. Patient is covered with cefepime and Levaquin while waiting for the culture to finalize to determine his discharge antibiotics and monitor clinical course closely. MMODL / IJN: [id number] /
[2020-10-30 12:02] LABS: Poikilocytosis (M) Present; Tear Drop Cells Present
[2020-10-30 12:03] LABS: Glucose,Whole Blood 240 mg/dL (75-99)
--- NOTE | 2020-10-30 14:24 | PN ---
PROGRESS NOTE The patient is seen for followup for acute kidney injury mostly acute tubular necrosis, currently being diuresed. Renal function is stable. Creatinine staying at about 2.1 mg/dL for the last couple of days. PHYSICAL EXAMINATION: On examination today, patient is comfortable, not in any acute distress. Blood pressure 118/62, heart rate 64 per minute. EXAMINATION OF THE HEART: S1, S2. EXAMINATION OF THE LUNGS: Decreased breath sounds at bases. Abdomen is soft and distended with ascites. Examination of lower extremities chronic skin changes. Chronic edema noted. SENIOR COMPUTER SPECIALIST exam is grossly intact. LABS: Labs show sodium of 133, potassium 4.2, BUN 84, creatinine 2.12, hemoglobin 11.2 g/dL. ASSESSMENT: 1. Acute kidney injury, acute tubular necrosis, currently nonoliguric, stable. Continue with current dose of Lasix. 2. Liver cirrhosis, status post paracentesis. 3. History of bilateral lung transplant. 4. Status post acute myocardial infarction, non ST elevation. 5. Chronic kidney disease stage 3. Creatinine around 1.6, but as low as 1.3 earlier, most recently staying 1.7-2 mg/dL with multiple episodes of acute kidney injury. PLAN: Continue with the Lasix for now. MMODL / IJN: [id number] /
--- NOTE | 2020-10-30 15:35 | CDI ---
Acute on chronic diastolic heart failure Documentation Clarification Form Date: 10/30/2020 03:15:25 PM From: Ally Schulz RN, CCDS Admit Date: 10/26/2020 11:05:00 AM Patient Name: Sacha Walton Visit Number: [id number] Discharge Date: ATTENTION: The Clinical Documentation Specialists (CDI) and [facility] Coding Staff appreciate your assistance in clarifying documentation. Please respond to the clarification below the line at the bottom and electronically sign. The CDI & [facility] Coding staff will review the response and follow-up if needed. Please note: Queries are made part of the Legal Health Record. If you have any questions, please contact the author of this message via ITS. Dr. Matthew Baker Your consult on 10/26 and progress note on 10/27 has diastolic CHF. Additional information regarding the acuity of CHF is requested. History/Risk Factors: Lung transplant, Pneumonia, cirrhosis, chronic renal failure, diabetes mellitus, COPD Clinical Indicators: 70-year-old male present on 10/26 with complaints of increasing shortness of breath, cough and congestion. In the consult and progress notes, underlying CHF cannot be excluded. His proBNP is elevated 10/26 VS/Pulse OX: 101/51 72 254 92 % 4/L NC 10/26 BNP: 79475 10/26 Troponin 5.140, 4.700, 3.790 Echocardiogram Results: Normal LV function, EF55-60 % 10/26 Chest X Ray: bilateral infiltrates, more on the right side. Treatment: Telemetry Monitoring Aspirin 81 MG PO Daily Toprol XL 100 MG PO Daily Lasix 40 MG IV Q8 HR Lipitor 10MG PO Daily In your professional opinion, can you please clarify the acuity of CHF if known? [ ] Acute Diastolic Heart Failure (preserved EF) [ ] Acute on Chronic Diastolic Heart Failure (preserved EF) [ ] Other, please specify [ ] Unable to determine (Template Last Revised: July 2020) MTDD
--- NOTE | 2020-10-30 16:01 | PN ---
PROGRESS NOTE This patient is a white male who was admitted with COPD exacerbation, community- acquired pneumonia, ascites, status post thoracentesis. His BUN is 80, creatinine is 2.12, sugars in the mid 100s to 200s. Hemoglobin is 11.2, white count 3.5. He has been improving with IV antibiotics. He is 93 on room air, respiratory rate 18-20, pulse 70. Dr. Vargas has been seeing him as well as Cardiology and Dr. Syed. He has pain when he takes a deep breath, left lung. Cough has decreased. Blood pressure 115/64, pulse 60s, temperature 97.4, O2 96 on room air. Lungs have a few coarse crackles at the lung base. No wheeze. Heart: S1, S2. Abdomen is soft. White count as mentioned above. ASSESSMENT: 1. Left lower lobe pneumonia, covered with cefepime, Levaquin. Determine final antibiotics depending on patient's improvement in the next 24 to 48 hours. Wait for Pulmonary to clear him. Cardiology has seen him, also, as well as renal physician. continue aspirin, atorvastatin, Toprol. No ACEs or ARBs due to renal function. 2. Pqm-FO-esonscp-elevation myocardial infarction. 3. Recurrent ascites. 4. Status post thoracentesis. Prognosis is guarded. Follow up as an outpatient. Probably discharge him home in the next day or two. MMGELYL / IJN: [id number] /
--- NOTE | 2020-10-30 16:17 | CDI ---
Documentation Clarification Form Date: 10/30/2020 03:39:31 PM From: Ally Schulz RN, CCDS Admit Date: 10/26/2020 11:05:00 AM Patient Name: Sacha Walton Visit Number: [id number] Discharge Date: ATTENTION: The Clinical Documentation Specialists (CDI) and [facility] Coding Staff appreciate your assistance in clarifying documentation. Please respond to the clarification below the line at the bottom and electronically sign. The CDI & [facility] Coding staff will review the response and follow-up if needed. Please note: Queries are made part of the Legal Health Record. If you have any questions, please contact the author of this message via ITS. Dr. Reinaldo Alaniz Pneumonia is documented in the H/P and subsequent progress notes. Additional clarification regarding the type of pneumonia is requested. History/Risk Factors: Recurrent Pneumonia, bilateral lung transplant 2008, chronic kidney disease stage 3, Diabetes Mellitus, Cirrhosis, Ascites, COPD, pulmonary fibrosis Clinical Indicators: 70-year-old male present to ED on 10/26 with complaints of shortness of breath, cough, congestion. He is on immunosuppression. 10/26 Vital signs: 101/51 72 24 97.8 92 % 4/L NC 10/26 WBC 13.8, Lactic acid 2.4 10/26 Chest X-ray: Diffuse bilateral lung infiltrates right greater than left with right pleural thickening/loculated pleural effusion. 10/26 Lung/Breathing assessment: (Pulmonary) Equal air entry with bilateral scattered rhonchi, crackles in the posterior bases. 10/30 Sputum Preliminary: Rare Gram Positive cocci (final pending) Treatment: Telemetry Monitoring Duoneb 0.5 Mg Inhalation QID PRN Cefepime HCL 2 GM IVPB Q 24 HRS Levaquin 250 MG PO Daily Monitor O2 Sat's (titrate) Please clarify the type of pneumonia, if known: [ ] Bacterial Pneumonia, specify causal organism (if known) [ ] Gram Negative Bacterial Pneumonia [ ] Bacterial Pneumonia Due to Strep [ ] Bacterial Pneumonia Due to Staph [ ] Other bacteria (please specify) [ ] Other, please specify [ ] Unable to determine (Template Last Revised: August 2020) MTDD
[2020-10-30 16:43] LABS: Glucose,Whole Blood 250 mg/dL (75-99)
[2020-10-30 20:07] LABS: Glucose,Whole Blood 214 mg/dL (75-99)
[2020-10-31] MEDS: FUROSEMIDE 10 MG/ML 4 ML VIAL IV SCH (03:23)
[2020-10-31 03:50] VITALS: TEMP 98.1
[2020-10-31 06:12] LABS: Glucose,Whole Blood 277 mg/dL (75-99)
[2020-10-31] MEDS: PANTOPRAZOLE 40 MG TABLET PO SCH (06:18)
[2020-10-31] MEDS: INSULIN ASPART (NovoLOG) 100 UNIT/ML VIAL SQ SCH ×2 (06:18→12:48)
[2020-10-31 07:48] LABS: Basophils % (A) 1 %; Eosinophils # (A) 0.2 k/uL (0-0.7); Eosinophils % (A) 3 %; HCT 36.2 % (39.0-53.0); HGB 11.5 gm/dL (13.0-17.5); Hypochromasia Slight; Lymphocytes # (A) 0.5 k/uL (1.0-4.8); Lymphocytes % (A) 9 %; MCH 30.2 pg (25.0-35.0); MCHC 31.8 g/dL (31.0-37.0); MCV 95.2 fL (80.0-100.0); Mean Platelet Volume 8.2; Monocytes # (A) 0.5 k/uL (0-1.0); Monocytes % (A) 9 %; Neutrophils # (A) 4.3 k/uL (1.3-7.7); Neutrophils % (A) 77 %; RBC 3.81 m/uL (4.30-5.90); RDW 15.3 % (11.5-15.5); WBC 5.6 k/uL (3.8-10.6)
[2020-10-31 07:57] LABS: Platelet Count 76 k/uL (150-450)
[2020-10-31 08:04] LABS: Albumin 2.8 g/dL (3.5-5.0); Calcium 8.6 mg/dL (8.4-10.2); Potassium 4.1 mmol/L (3.5-5.1); Total Bilirubin 0.5 mg/dL (0.2-1.3); Total Protein 5.2 g/dL (6.3-8.2)
--- NOTE | 2020-10-31 08:16 | XR ---
EXAMINATION TYPE: XR chest 1V portable DATE OF EXAM: 10/31/2020 CLINICAL HISTORY: Difficulty breathing and CHF progress study. TECHNIQUE: Single AP portable upright view of the chest is obtained. COMPARISON: Chest x-ray from 2 days earlier and older studies. FINDINGS: Overlying sternal wires and mediastinal clips. Cardiac silhouette size stable and mildly e nlarged without a cirrhotic aorta. Chronic parenchymal changes with small right pleural effusion. Oss eous structures are demineralized. Age-indeterminate lateral left lower rib fracture. IMPRESSION: Chronic changes and mild cardiomegaly with small right pleural effusion and associated pa tchy right basilar atelectasis and/or infiltrate. No new acute infiltrate. No significant change from 2 days earlier
[2020-10-31] MEDS: IPRATROPIUM-ALBUTEROL 3 ML NEB INHALATION SCH ×3 (08:19→16:28)
[2020-10-31] MEDS: MULTIVITAMINS, THERA 1 EACH TAB PO SCH (08:55)
[2020-10-31] MEDS: TACROLIMUS 0.5 MG CAP PO SCH (08:55)
[2020-10-31] MEDS: LEVOFLOXACIN 250 MG TAB PO SCH (08:55)
[2020-10-31] MEDS: SODIUM BICARBONATE TAB 650 MG TAB PO SCH (08:55)
[2020-10-31] MEDS: predniSONE 5 MG TAB PO SCH (08:55)
[2020-10-31] MEDS: ASPIRIN 81 MG PO SCH (08:55)
[2020-10-31] MEDS: TACROLIMUS 1 MG CAP PO SCH (08:55)
[2020-10-31] MEDS: SERTRALINE 50 MG TAB PO SCH (08:55)
[2020-10-31] MEDS: ATORVASTATIN 10 MG TAB PO SCH (08:56)
[2020-10-31] MEDS: METOPROLOL SUCCINATE (ER) 100 MG TAB.ER.24H PO SCH (08:56)
[2020-10-31] MEDS: TAMSULOSIN 0.4 MG CAP.ER.24H PO SCH (08:56)
[2020-10-31] MEDS: HYDROcodone/APAP 5-325MG 1 EACH TAB PO PRN (08:56)
[2020-10-31] MEDS: CEFEPIME 2 GM in SODIUM CHLORIDE 0.9% 100 ML IVPB SCH (08:56)
[2020-10-31] MEDS: METOCLOPRAMIDE 10 MG TAB PO SCH (08:56)
--- NOTE | 2020-10-31 09:50 | P.PN ---
Subjective Progress Note Date: 10/31/20 10/28/2020 and seeing the patient for a follow-up. Clinically stool came slightly improved compared to yesterday. As mentioned earlier, the patient presented with worsening shortness of breath and hypoxic respiratory failure. The patient is a case of lung transplantation is patient has been maintained on immunosuppression with a combination of Prograf and prednisone. However, he has also developed liver failure/liver cirrhosis and the patient has recurrent ascites and he has required multiple paracenteses in the past and he has been receiving drainage almost every 2-3 weeks. The last paracentesis that was done on this patient was on 10/14/2020 and a total of 6.1 L of pleural fluid was drai kane. During this current admission, the patient's pro-calcitonin level was elevated. Based on the fact that his chronic immunosuppressed, the patient will be covered with antibiotics and I'm going to start the patient IV cefepime 2 g every 12 hours and the patient is also on Levaquin 250 mg by mouth on a daily basis.. The patient is currently on 2 L of oxygen with a pulse ox of 97%. He is afebrile. Paracentesis to follow. As far as the elevated protein calcitonin level, we are considering the possibility of a pneumonia versus spontaneous bacterial peritonitis. The patient is going to undergo the paracentesis and following that the ascitic fluid was sent for cultures. He remains also on IV Lasix and the patient is receiving Lasix 40 mg every 8 hours. Nephrology is on the case. The patient is on Prograf 2.5 mg twice a day and the patient is still on prednisone 5 mg by mouth daily. No altered mentation. No hepatic encephalopathy. Abdomen is quite distended with ascites. The creatinine is down to 2.3 from a baseline of 2.6 and the patient also has a component of chronic kidney disease. No altered mentation. Note that the patient's pro- calcitonin level was elevated at 62.1 and the patient's proBNP level was also elevated at 28,700 and the patient's troponin was elevated at 3.7. On today's evaluation of 10/29/2020, seeing the patient for a follow-up. The patient is feeling well. Less short of breath compared to yesterday. The patient underwent a large volume paracentesis yesterday without a total of 6 L of ascitic fluid was aspirated without any complications. The patient is also on IV Lasix. He is receiving Lasix 40 g IV every 8 hours. Is producing adeq uate amount of urine output. He is less short of breath compared to yesterday. He is currently on 2 L of oxygen by nasal cannula with a pulse is 98%. I tried him on room air oxygen and we are monitoring the pulse ox on room air accordingly. He is afebrile. He remains on broad-spectrum antibiotics and the patient is receiving a combination of cefepime and Levaquin. The creatinine is down to 2.1 with a BUN of 81. Sodium level is at 135. Potassium level is at 4. White cell count dropped down to 5.9. The stricture which showed a low cellular count and the cultures of been negative. As such, I doubt the possibility of spontaneous bacterial peritonitis. Echocardiogram was on the results are still pending for now. Follow-up chest x-ray was also ordered for tomorrow. Tolerating diet. No altered mentation. No chest pain. 10/30/2020 patient is being seen for a follow-up. Currently is on room air oxygen. The chest x-ray from yesterday was already improving and the patient was kept on IV Lasix and he is post large volume paracentesis. His pro- calcitonin level is improving. It is currently down to 18.3. He remains on antibiotics and he is on a combination of cefepime and Levaquin. He remains on Prograf. He is also on 5 mg of prednisone. He is on Lasix at a dose of 40 mg every 8 hours. Fluid balance has been -565 mL over the past 24 hours. Follow- up blood work is still pending for now. Echo of the heart was completed and it showed a preserved LV function with an EF of around 55-60%, mild concentric LVH, aqpr-et-ekqqmhyc hypertension. No altered mentation. No chest pain. He is resting comfortably in bed. Reported fever. Still has some ascites which is sm aller post paracentesis. 10/31/2020, I'm seeing the patient for a follow-up. He remains on room air oxygen. Remains on IV Lasix. Producing excellent amount of urine output and he is in a negative fluid balance. He does have ascites which is stable for now and he underwent a large volume paracentesis. Chest x-ray shows clearing of the previously described pulmonary infiltrates. As such, I'm not sure this was an infection versus fluid overload. His pro-calcitonin level was high and I do arce spect infection. A repeat pro-calcitonin level is down to 9.3. The patient remains on antibiotics. Currently he is receiving antibiotics in the form of IV cefepime and Levaquin that can be further simplified. I think it would be simplified to Levaquin only. ID is on the case. Cultures of been all negative. The blood work today showing a stable creatinine of 2.2 with a BUN of 88 and electrolytes are normal with acute metabolic alkalosis secondary to diuresis, platelet count is at 76 with a white cell count of 5.6. Sitting up on a chair. Tolerating diet. No nausea. No vomiting. No emesis. Echo showed a preserved LV function with an ejection fraction of 55-60%. Objective - Vital Signs Vital signs: Vital Signs Temp 98.1 F 10/31/20 03:50 Pulse 64 10/31/20 08:29 Resp 16 10/31/20 03:50 BP 118/63 10/31/20 03:50 Pulse Ox 95 10/31/20 03:50 Intake & Output 10/30/20 10/31/20 10/31/20 18:59 06:59 18:59 Intake Total 960 Output Total 600 1050 Balance 360 -1050 Weight 77.5 kg Intake: Oral 960 Output: Urine 600 1050 Other: Voiding Method Bedpan Bedside Commode Urinal Urinal # Bowel Movements 1 - Exam Gen. appearance the patient is a mild degree of respiratory distress the patient is currently on oxygen RA Head exam was generally normal. There was no scleral icterus or corneal arcus. Mucous membranes were moist. Neck was supple and without jugular venous distension, thyromegaly, or carotid bruits. Carotids were easily palpable bilaterally. There was no adenopathy. Examination of the lungs shows a clamshell incision over the anterior chest related to transplantation. The patient has crackles in right midlung area anteriorly and posteriorly Cardiac exam revealed the PMI to be normally situated and sized. The rhythm was regular and no extrasystoles were noted during several minutes of auscultation. The first and second heart sounds were normal and physiologic splitting of the second heart sound was noted. There were no murmurs, rubs, clicks, or gallops. Abdominal exam revealed normal bowel sounds. The abdomen was soft, non-tender, and without masses, organomegaly, or appreciable enlargement of the abdominal aorta. The patient has an abdominal wall hernia on examination , the patient also has some fluid wave and shifting dullness. No direct tenderness, no rebound tenderness or guarding, and abdomen is significantly distended and the patient is in ascites secondary to liver cirrhosis. The ascitic fluid has diminished in size compared to yesterday as the patient underwent a large old paracentesis. Examination of the extremities revealed easily palpable radial, femoral and pedal pulses. There was no cyanosis, clubbing or edema. Examination of the skin revealed no evidence of significant rashes, suspicious appearing nevi or other concerning lesions. - Labs CBC & Chem 7: 10/31/20 06:46 10/31/20 06:45 Labs: Abnormal Lab Results - Last 24 Hours (Table) 10/30/20 10/30/20 10/30/20 Range/Units 10:32 10:32 10:32 RBC 3.72 L (4.30-5.90) m/uL Hgb 11.2 L (13.0-17.5) gm/dL Hct 35.8 L (39.0-53.0) % Plt Count 74 L (150-450) k/uL Lymphocytes # 0.4 L (1.0-4.8) k/uL Sodium 133 L (137-145) mmol/L Chloride (98-107) mmol/L Carbon Dioxide (22-30) mmol/L BUN 84 H (9-20) mg/dL Creatinine 2.12 H (0.66-1.25) mg/dL Glucose 256 H (74-99) mg/dL POC Glucose (mg/dL) (75-99) mg/dL Calcium 8.3 L (8.4-10.2) mg/dL Total Protein 4.9 L (6.3-8.2) g/dL Albumin 2.5 L (3.5-5.0) g/dL Procalcitonin 9.33 H (0.02-0.09) ng/mL 10/30/20 10/30/20 10/30/20 Range/Units 12:02 16:42 20:06 RBC (4.30-5.90) m/uL Hgb (13.0-17.5) gm/dL Hct (39.0-53.0) % Plt Count (150-450) k/uL Lymphocytes # (1.0-4.8) k/uL Sodium (137-145) mmol/L Chloride (98-107) mmol/L Carbon Dioxide (22-30) mmol/L BUN (9-20) mg/dL Creatinine (0.66-1.25) mg/dL Glucose (74-99) mg/dL POC Glucose (mg/dL) 240 H 250 H 214 H (75-99) mg/dL Calcium (8.4-10.2) mg/dL Total Protein (6.3-8.2) g/dL Albumin (3.5-5.0) g/dL Procalcitonin (0.02-0.09) ng/mL 10/31/20 10/31/20 10/31/20 Range/Units 06:11 06:45 06:46 RBC 3.81 L (4.30-5.90) m/uL Hgb 11.5 L (13.0-17.5) gm/dL Hct 36.2 L (39.0-53.0) % Plt Count 76 L (150-450) k/uL Lymphocytes # 0.5 L (1.0-4.8) k/uL Sodium 135 L (137-145) mmol/L Chloride 96 L (98-107) mmol/L Carbon Dioxide 32 H (22-30) mmol/L BUN 88 H (9-20) mg/dL Creatinine 2.22 H (0.66-1.25) mg/dL Glucose 219 H (74-99) mg/dL POC Glucose (mg/dL) 277 H (75-99) mg/dL Calcium (8.4-10.2) mg/dL Total Protein 5.2 L (6.3-8.2) g/dL Albumin 2.8 L (3.5-5.0) g/dL Procalcitonin (0.02-0.09) ng/mL Microbiology - Last 24 Hours (Table) 10/28/20 20:15 Gram Stain - Final Sputum Sputum Culture - Final 10/26/20 09:47 Blood Culture - Preliminary Blood No Growth after 96 hours 10/26/20 09:47 Blood Culture - Preliminary Blood No Growth after 96 hours Assessment and Plan Plan: 1 acute hypoxic respiratory failure, currently on RA oxygen . The patient had diffuse breath and pulmonary infiltrates right more than left. The patient is immunosuppressed with a combination of Prograf and prednisone. The patient has also underlying chronic immunosuppression with hypogammaglobulinemia receiving IVIG on outpatient basis. He has been maintained on Zithromax as an antibiotic prophylaxis. His pro-calcitonin level was elevated. As such a pneumonia was suspected. The patient is improving. I'm not absolutely sure whether this is a pneumonia. He has had several bouts of a similar presentation with diffuse but the pulmonary infiltrates and the patient has responded to diuretics and antibiotics. His pro-calcitonin level is improving. , The patient is improving and he received a combination of antibiotics and di uretics. Volume status is improved. Pro-calcitonin level is also improved. 2 acute non-STEMI with a troponin maxed at 3.7 3 history of bilateral lung transplantation for COPD/pulmonary fibrosis pe rformed in 2008, maintained on a combination of Prograf and prednisone 4 liver cirrhosis with secondary ascites and abdominal distention , post large volume paracentesis 5 chronic stage III kidney disease, with a component of an acute kidney injury on top of chronic kidney disease, acute kidney injury is improving and the creatinine is down to 2.1 6 diabetes mellitus type 2, maintained on Levemir insulin 20 units twice a day 7 chronic back pain 8 osteoarthritis 9 BPH, Post TURP 10 HYPOGAMMAGLOBULINEMIA RECEIVING IVIG ON OUTPATIENT BASIS 11 chronic anxiety/depression 12 chronic immunosuppression utilizing a combination of Prograf and prednisone 13 osteoporosis on Fosamax Plan Paracentesis was done and the patient had a total of 6 L of ascitic fluid removed. The fluid culture has been negative. Culture are all negative. The patient has no evidence of any spontaneous bacterial peritonitis. I'm going to discontinue the IV Lasix and put the patient on Lasix 40 mg by mouth twice a day Monitor electrolytes Monitor renal function Suggest stopping cefepime and switch this patient to Levaquin only, his pro- calcitonin level is improving Echo of the heart was noted and the patient is a preserved LV function Repeat chest x-ray in the morning was reviewed and the patient shows marked improvement in bilateral pulmonary infiltrates Pro-calcitonin a.m. is improving. The level will be monitored. Cardiology consultation regarding the acute non-STEMI Monitor troponins Currently free of any chest pain We'll continue to follow
[2020-10-31 11:43] LABS: Glucose,Whole Blood 179 mg/dL (75-99)
--- NOTE | 2020-10-31 11:52 | PN ---
PROGRESS NOTE DATE OF SERVICE: 10/31/2020 REASON FOR FOLLOWUP: Pneumonia. INTERVAL HISTORY: Patient is currently afebrile. Patient is breathing comfortably on room air. Patient denies having any chest pain. The left lower chest pain that patient was complaining has improved. Continued to have some cough though no decreased in intensity. No nausea, no vomiting. No abdominal pain or diarrhea. PHYSICAL EXAMINATION: Blood pressure 118/63 with a pulse of 72, temperature 98.1. He is 95% on room air. General description is an elderly male up in the bed in no distress. RESPIRATORY SYSTEM: Unlabored breathing, decreased intensity of breath sounds. No wheeze. HEART: S1, S2. Regular rate and rhythm. ABDOMEN: Soft, no tenderness. LABS: Hemoglobin is 11.5, white count 5.6, BUN of 88, creatinine is 2.22. Sputum is usual respiratory davis. Blood culture negative. DIAGNOSTIC IMPRESSION AND PLAN: Patient admitted to the hospital with shortness of breath, cough with concern for pneumonia, more likely community-acquired with negative for resistant pathogen, treated with Levaquin and cefepime. oral Levaquin and close outpatient followup. MMODL / IJN: [id number] /
--- NOTE | 2020-10-31 14:37 | PN ---
PROGRESS NOTE Patient is seen for followup for acute kidney injury on top of chronic kidney disease. Renal function has been stable with creatinine staying at about 2.1 mg/dL. Patient is being diuresed. He is maintained on IV Lasix, which is switched to p.o. today. Volume status has improved. A 24-hour urine output of about 1.6 L. PHYSICAL EXAMINATION: On examination today, blood pressure 118/63, heart rate 72 per minute. He is afebrile. EXAMINATION OF THE HEART: S1, S2. EXAMINATION OF THE LUNGS: Decreased breath sounds at bases. ABDOMEN: Soft, distended with ascites, nontender. Examination of lower extremities shows chronic skin changes, edema 1+ bilaterally. LABS: Labs show sodium 135, potassium 4.1, chloride 96, CO2 is 32, BUN 88, creatinine 2.22, hemoglobin 11.5 g/dL. ASSESSMENT: 1. Acute kidney injury, acute tubular necrosis, currently stable. Continue to diurese patient post discharge as well. Can switch to oral diuretics. 2. Chronic kidney disease stage 3. Most recently serum creatinine has been 1.7-2 mg/dL with multiple episodes of acute kidney injury. 3. History of bilateral lung transplant for pulmonary fibrosis, advanced chronic obstructive pulmonary disease. 4. Status post acute non ST elevation myocardial infarction. 5. Liver cirrhosis, requiring paracentesis. 6. Volume overload, currently improved. PLAN: Continue with oral diuretics post discharge. Monitor labs as outpatient. MMGELYL / VERNA: [id number] /
[2020-10-31] MEDS ORDERED: FUROSEMIDE 40 MG TAB PO SCH (16:00)
[2020-10-31 16:36] VITALS: RESP 18
[2020-10-31 16:37] VITALS: BP 113/56; PULSE 74
--- NOTE | 2020-11-01 09:15 | CDI ---
Documentation Clarification Form Date: 10/30/2020 03:39:00 PM From: Ally Schulz CCS, CCDS Admit Date: 10/26/2020 11:05:00 AM Patient Name: Sacha Walton Visit Number: [id number] Discharge Date: 10/31/2020 04:26:00 PM ATTENTION: The Clinical Documentation Specialists (CDI) and [facility] Coding Staff appreciate your assistance in clarifying documentation. Please respond to the clarification below the line at the bottom and electronically sign. The CDI & [facility] Coding staff will review the response and follow-up if needed. Please note: Queries are made part of the Legal Health Record. If you have any questions, please contact the author of this message via ITS. Dr. Reinaldo Alaniz: Pneumonia] is documented in the H/P and subsequent progress notes. Additional clarification regarding the type of pneumonia is requested. History/Risk Factors: Recurrent Pneumonia, bilateral lung transplant 2008, Chronic kidney disease stage 3, Diabetes Mellitus, Cirrhosis, Ascites, COPD, pulmonary fibrosis Clinical Indicators:70-year-old male present to ED on 10/26 with complaints of shortness of breath, cough, congestion. He is on immunosuppression. 10/26 Vital signs: 101/51 72 24 97.8 92 % 4/L NC 10/26 WBC 13.8, Lactic acid 2.4 10/26 Chest X-ray: Diffuse bilateral lung infiltrates right greater than left with right pleural thickening/loculated pleural effusion. 10/26 Lung/Breathing assessment: (Pulmonary) Equal air entry with bilateral scattered rhonchi, crackles in the posterior bases. 10/30 Sputum Preliminary: Rare Gram Positive cocci ( final pending) Treatment: Telemetry Monitoring Duoneb 0.5Mg Inhalation QID PRN Cefepime HCL 2 GM IVPB Q 24 HRS Levaquin 250 MG PO Daily Monitor O2 Sat's (titrate) Please clarify the type of pneumonia, if known: [ ] Bacterial Pneumonia, specify causal organism (if known) [ ] Gram Negative Bacterial Pneumonia [ ] Bacterial Pneumonia Due to Strep [ ] Bacterial Pneumonia Due to Staph [ ] Other bacteria (please specify) [ ] Other, please specify [ ] Unable to determine (Template Last Revised: August 2020) MTDD
--- NOTE | 2020-11-01 15:14 | PN ---
PROGRESS NOTE Please add: Gram-negative bacterial pneumonia. MMODL / IJN: [id number] /
--- NOTE | 2020-11-21 07:18 | DS ---
DISCHARGE SUMMARY DISCHARGE MEDICATIONS: DuoNeb updraft q.i.d., aspirin 81 mg daily, Lasix 40 mg b.i.d., Toprol-XL 100 mg daily, Prograf 2 mg b.i.d., Florinef 0.1 mg daily, Drisdol 50,000 units every 15 days, Fosamax 70 mg weekly, multivitamin daily, iron 325 daily, zyloprim 100 mg daily, Reglan 10 mg daily, Zoloft 50 mg daily, Prilosec 40 mg b.i.d., Prograf 0.5 mg daily, Flomax 0.4 mg daily, prednisone 5 mg daily, Lipitor 10 mg daily, sodium bicarbonate 650 b.i.d., [place] 5/325 t.i.d., Levemir 20 units subcu b.i.d., azithromycin 250 mg Wednesday, Wednesday, Wednesday. DISCHARGE DIAGNOSIS: Acute on chronic renal failure, ascites, congestive heart failure, diastolic heart failure. HOSPITAL COURSE: He was seen by Cardiology, Pulmonology, Infectious Disease and GI physicians. He was having chest pain. His chest pain was atypical. We thought he might have community- acquired pneumonia and was treated with Levaquin and cefepime while admitted and switched him to oral on discharge. We also had Outside Salesman see him, financial investment adviser, Dr. Syed. He had recurrent ascites and liver cirrhosis. He gets drainage every 2-3 weeks. We treated him with IV antibiotics for multiple days. He had thoracentesis I believe while in the hospital. He had acute hypoxemic respiratory failure on room air up to 2 L to 3 L for pulmonary infiltrates. He slowly improved from that. He had acute non STEMI with troponin at 3.7. Cardiology treated that medically. He had a history of bilateral lung transplantation for pulmonary fibrosis. He was maintained on Prograf and prednisone. He has liver cirrhosis, ascites. He will have to follow this up with outpatient paracentesis. Chronic kidney disease stage 3, component of acute kidney injury, but on discharge, his creatinine is down to 2.1. Diabetes mellitus type 2. Remains on Levemir insulin, osteoarthritis, back pain, BPH status post TURP, hypogammaglobulinemia, receiving IVIG on an outpatient basis. Chronic anxiety and depression. Chronic immune suppression. He was weaned off antibiotics oral antibiotics. His ascites has improved. He had paracentesis. Cultures have all been negative. No evidence of spontaneous bacterial peritonitis. He was stopped off IV Lasix which help with the diuresis and switched to oral Lasix 40 mg by mouth twice a day, at which time he was discharged home on oral medicines to follow up as an outpatient. Prognosis extremely guarded. Condition stable. Diet was as tolerated. MMODL / IJN: [id number] /
== END 2020-10-31 16:26 | disposition home health service (06) | DRG 280 ==
LOC: EC 09:13 → 3SCARD 11:05
PROVIDERS: ADMIT Family Medicine; ATTEND Family Medicine
PROC: 0W9G3ZZ Drainage of Peritoneal Cavity, Percutaneous Approach (ICD-10-PCS; principal; 2020-10-29)
DX: I21.4 Non-ST elevation (NSTEMI) myocardial infarction (principal); I50.33 Acute on chronic diastolic (congestive) heart failure; J96.21 Acute and chronic respiratory failure with hypoxia; N17.0 Acute kidney failure with tubular necrosis; J15.6 Pneumonia due to other Gram-negative bacteria; T86.812 Lung transplant infection; R64 Cachexia; I13.0 Hypertensive heart and chronic kidney disease with heart failure and stage 1 through stage 4 chronic kidney disease, or unspecified chronic kidney disease; J44.0 Chronic obstructive pulmonary disease with (acute) lower respiratory infection; D80.1 Nonfamilial hypogammaglobulinemia; E87.1 Hypo-osmolality and hyponatremia; E87.3 Alkalosis; J44.1 Chronic obstructive pulmonary disease with (acute) exacerbation; R18.8 Other ascites; E11.649 Type 2 diabetes mellitus with hypoglycemia without coma; N18.4 Chronic kidney disease, stage 4 (severe); D69.6 Thrombocytopenia, unspecified; I27.20 Pulmonary hypertension, unspecified; K72.90 Hepatic failure, unspecified without coma; E11.22 Type 2 diabetes mellitus with diabetic chronic kidney disease; K74.69 Other cirrhosis of liver; Z79.4 Long term (current) use of insulin; Z20.822 Contact with and (suspected) exposure to COVID-19; I45.10 Unspecified right bundle-branch block; D63.1 Anemia in chronic kidney disease; E78.5 Hyperlipidemia, unspecified; F32.9 Major depressive disorder, single episode, unspecified; F41.9 Anxiety disorder, unspecified; G89.29 Other chronic pain; M54.9 Dorsalgia, unspecified; M19.90 Unspecified osteoarthritis, unspecified site; M1A.9XX0 Chronic gout, unspecified, without tophus (tophi); N40.0 Benign prostatic hyperplasia without lower urinary tract symptoms; F10.11 Alcohol abuse, in remission; K21.9 Gastro-esophageal reflux disease without esophagitis; T50.2X5A Adverse effect of carbonic-anhydrase inhibitors, benzothiadiazides and other diuretics, initial encounter; M41.9 Scoliosis, unspecified; M81.0 Age-related osteoporosis without current pathological fracture; Z68.27 Body mass index [BMI] 27.0-27.9, adult; Z79.83 Long term (current) use of bisphosphonates; Z79.52 Long term (current) use of systemic steroids; Z79.899 Other long term (current) drug therapy; Z87.891 Personal history of nicotine dependence; Z90.79 Acquired absence of other genital organ(s); Z86.19 Personal history of other infectious and parasitic diseases; Z98.41 Cataract extraction status, right eye; Z98.42 Cataract extraction status, left eye; Z87.01 Personal history of pneumonia (recurrent); Z87.19 Personal history of other diseases of the digestive system; Z87.09 Personal history of other diseases of the respiratory system; Z71.3 Dietary counseling and surveillance; Z98.890 Other specified postprocedural states; Z88.6 Allergy status to analgesic agent; Z88.1 Allergy status to other antibiotic agents; Z91.018 Allergy to other foods; Z82.5 Family history of asthma and other chronic lower respiratory diseases
CPT/HCPCS: 36415; 49083; 71045; 71046; 76770; 80053; 80197; 81001; 82150; 82570; 82945; 83036; 83605; 83615; 83880; 84133; 84145; 84157; 84300; 84484; 84540; 84550; 85025; 85610; 85730; 87040; 87070; 87205; 87636; 89050; 93005; 93306; 94640; 94760; 99291

== ENCOUNTER 2020-11-11 11:53 | Day surgery (SDC) | payer MEDICARE, OTHER ==
[2020-11-11 12:24] LABS: Mean Platelet Volume 7.5
[2020-11-11 12:54] LABS: Platelet Count 83 k/uL (150-450)
[2020-11-11 13:09] VITALS: TEMP 97.9
[2020-11-11 13:29] LABS: Prothrombin Time 11.1 sec (9.0-12.0)
[2020-11-11] MEDS: ALBUMIN HUMAN 25% 50 ML in EMPTY BAG 1 BAG IVPB SCH ×2 (13:51→14:12)
[2020-11-11 15:17] VITALS: RESP 16
[2020-11-11 15:20] VITALS: BP 146/76; PULSE 75
--- NOTE | 2020-11-12 09:47 | US ---
EXAMINATION TYPE: US paracentesis abd w/image DATE OF EXAM: 11/11/2020 COMPARISON: NONE HISTORY: Ascites. PROCEDURE: Maximal barrier technique was utilized. The skin overlying a suitable pocket of fluid was localized with ultrasound and the overlying skin was prepped and draped. Ultrasound was utilized with sterile technique. Lidocaine was used for local anesthesia and a skin meri made with a scalpel. Catheter was advanced under direct ultrasound guidance into a suitable pocket of fluid and approximately 5.1 liter s of serous fluid were removed. Catheter was withdrawn and hemostasis achieved. There is no immedia te complication; the patient is discharged in stable condition. IMPRESSION: STATUS POST ULTRASOUND GUIDED PARACENTESIS FOR PALLIATION OF ASCITES. THIS PROCEDURE WA S PERFORMED BY THE UNDERSIGNED.
== END 2020-11-11 15:10 | disposition home or self-care (01) ==
LOC: RADPROMAIN 11:53
PROVIDERS: ATTEND Internal Medicine
DX: R18.8 Other ascites (principal); K74.60 Unspecified cirrhosis of liver
CPT/HCPCS: 82565; 82947; 85049; 85610; 36415; 49083; P9047

== ENCOUNTER → 2020-11-12 | Outpatient (CLI) | payer MEDICARE, OTHER ==
[2020-11-12 14:28] VITALS: PULSE 80
== END ==
LOC: CPPFTMAIN 13:07
PROVIDERS: ATTEND Internal Medicine
DX: Z94.2 Lung transplant status (principal); Z88.1 Allergy status to other antibiotic agents; Z91.018 Allergy to other foods; Z88.6 Allergy status to analgesic agent
CPT/HCPCS: 94640; 94642

== ENCOUNTER 2020-11-21 12:37 | Day surgery (SDC) | payer MEDICARE, OTHER ==
[2020-11-21 13:41] LABS: Mean Platelet Volume 8.3
[2020-11-21 13:47] LABS: Platelet Count 83 k/uL (150-450)
[2020-11-21 14:15] LABS: INR 1.1 (<1.2); Prothrombin Time 11.3 sec (9.0-12.0)
[2020-11-21 14:49] VITALS: RESP 18; TEMP 97.6
[2020-11-21 15:56] VITALS: BP 151/74; PULSE 77
--- NOTE | 2020-11-21 16:32 | US ---
EXAMINATION TYPE: US paracentesis abd w/image DATE OF EXAM: 11/21/2020 COMPARISON: NONE HISTORY: Ascites. PROCEDURE: Maximal barrier technique was utilized. The skin overlying a suitable pocket of fluid was localized with ultrasound and the overlying skin was prepped and draped. Ultrasound was utilized with sterile technique. Lidocaine was used for local anesthesia and a skin meri made with a scalpel. Catheter was advanced under direct ultrasound guidance into a suitable pocket of fluid and approximately 3.7 liter s of serous fluid were removed. Catheter was withdrawn and hemostasis achieved. There is no immedia te complication; the patient is discharged in stable condition. IMPRESSION: STATUS POST ULTRASOUND GUIDED PARACENTESIS FOR PALLIATION OF ASCITES. THIS PROCEDURE WA S PERFORMED BY THE UNDERSIGNED.
== END 2020-11-21 15:50 | disposition home or self-care (01) ==
LOC: RADPROMAIN 12:37
PROVIDERS: ATTEND Internal Medicine
DX: R18.8 Other ascites (principal); K74.60 Unspecified cirrhosis of liver
CPT/HCPCS: 36415; 49083; 82565; 82947; 85049; 85610

== ENCOUNTER 2020-12-02 12:50 | Day surgery (SDC) | payer MEDICARE, OTHER ==
[~2020-12-02 12:50] MED LIST changes: +ALBUMIN HUMAN 25% 50 ML in EMPTY BAG 1 BAG IVPB SCH; -ALBUTEROL NEBULIZED 2.5 MG/3 ML INHALATION ONE; -[UNRECOGNIZED DRUG - OTHER] INHALATION ONE
[2020-12-02 13:31] LABS: Mean Platelet Volume 9.1
[2020-12-02 13:33] VITALS: TEMP 98.3
[2020-12-02 13:38] LABS: Platelet Count 79 k/uL (150-450)
[2020-12-02 13:57] LABS: Prothrombin Time 10.8 sec (9.0-12.0)
[2020-12-02 15:22] VITALS: RESP 16
[2020-12-02 15:48] VITALS: BP 148/72; PULSE 67
--- NOTE | 2020-12-03 08:09 | US ---
Ultrasound-guided paracentesis. DATE OF EXAM: 12/02/2020 CLINICAL HISTORY: Ascites The procedure was discussed with the patient. The risks, complications, benefits, and alternatives we re discussed and any questions were answered. Informed consent was obtained. The patient was placed s upine on the ultrasound table and prepped and draped in the usual sterile fashion. All elements of maximal barrier technique were utilized. Under ultrasound guidance, access into the right lower quadrant was obtained, via the paracentesis catheter system and direct ultrasound guidanc e. Approximately 3.1 liters of straw-colored fluid was removed. The patient was stable throughout the pr ocedure and remained stable upon discharge from Department of Radiology. IMPRESSION: Successful paracentesis under ultrasound guidance.
== END 2020-12-02 15:52 | disposition home or self-care (01) ==
LOC: RADPROMAIN 12:50
PROVIDERS: ATTEND Internal Medicine
DX: R18.8 Other ascites (principal)
CPT/HCPCS: 36415; 49083; 82565; 82947; 85049; 85610

== ENCOUNTER 2020-12-09 12:09 | Day surgery (SDC) | payer MEDICARE, OTHER ==
[2020-12-09 12:51] LABS: Mean Platelet Volume 7.8
[2020-12-09 13:02] LABS: INR 1.1 (<1.2); Prothrombin Time 11.5 sec (9.0-12.0)
[2020-12-09 13:18] LABS: Platelet Count 70 k/uL (150-450)
[2020-12-09 14:05] VITALS: RESP 16; TEMP 97.6
[2020-12-09 14:45] VITALS: BP 150/72; PULSE 66
[2020-12-09] MEDS: ALBUMIN HUMAN 25% 50 ML in EMPTY BAG 1 BAG IVPB SCH (14:46)
--- NOTE | 2020-12-09 15:54 | US ---
Ultrasound-guided paracentesis. DATE OF EXAM: 12/09/2020 CLINICAL HISTORY: Ascites The procedure was discussed with the patient. The risks, complications, benefits, and alternatives we re discussed and any questions were answered. Informed consent was obtained. The patient was placed s upine on the ultrasound table and prepped and draped in the usual sterile fashion. All elements of maximal barrier technique were utilized. Under ultrasound guidance, access into the right lower quadrant was obtained, via the paracentesis catheter system and direct ultrasound guidanc e. Approximately 2.5 liters of straw-colored fluid was removed. The patient was stable throughout the pr ocedure and remained stable upon discharge from Department of Radiology. IMPRESSION: Successful paracentesis under ultrasound guidance.
== END 2020-12-09 14:47 | disposition home or self-care (01) ==
LOC: RADPROMAIN 12:09
PROVIDERS: ATTEND Internal Medicine
DX: R18.8 Other ascites (principal); K74.60 Unspecified cirrhosis of liver
CPT/HCPCS: 36415; 49083; 82565; 82947; 85049; 85610

== ENCOUNTER 2020-12-10 10:19 | Inpatient (IN) | payer MEDICARE, OTHER ==
--- NOTE | 2020-12-10 10:36 | ED ---
General Adult HPI - General Chief complaint: Altered Mental Status Stated complaint: altered mental status Time Seen by Provider: 12/10/20 10:21 Source: patient, EMS, RN notes reviewed Mode of arrival: EMS Limitations: altered mental status - History of Present Illness Initial comments: Patient is a pleasant 70-year-old male presenting to the emergency Department with change in mental status. Patient was transferred from [facility]. Patient was reportedly found with decreased shots illness this morning patient arrived there acting well and then had a focal seizure activity episode. Patient was postictal following Ativan again returned back to normal. Patient does have history of previous ascites with recent paracentesis. Patient has no specific complaints at this time. Patient was given Ativan and Keppra. No history of reported previous seizure. - Related Data Home Medications Medication Instructions Recorded Confirmed Alendronate Sodium [Fosamax] 70 mg PO WE 11/06/13 12/09/20 Ergocalciferol (Vitamin D2) 50,000 units PO DIRECTED 11/06/13 12/09/20 [Drisdol] Fludrocortisone [Florinef] 0.1 mg PO DAILY 11/06/13 12/09/20 Metoprolol Succinate (ER) [Toprol 100 mg PO DAILY 11/06/13 12/09/20 XL] Tacrolimus [Prograf] 2 mg PO BID 11/06/13 12/09/20 Multivitamins, Thera [Multivitamin 1 tab PO DAILY 07/23/16 12/09/20 (formulary)] Ferrous Sulfate [Iron (65 MG 325 mg PO DAILY 09/29/16 12/09/20 Elemental)] Allopurinol [Zyloprim] 100 mg PO BID 05/06/17 12/09/20 Metoclopramide [Reglan] 10 mg PO DAILY 05/06/17 12/09/20 Omeprazole [PriLOSEC] 40 mg PO BID 03/02/18 12/09/20 Sertraline [Zoloft] 50 mg PO DAILY 03/02/18 12/09/20 Tacrolimus [Prograf] 0.5 mg PO BID 08/16/19 12/09/20 Tamsulosin HCl [Flomax] 0.4 mg PO DAILY 08/16/19 12/09/20 Atorvastatin [Lipitor] 10 mg PO DAILY 05/30/20 12/09/20 Sodium Bicarbonate 650 mg PO BID 08/05/20 12/09/20 HYDROcodone/APAP 5-325MG [[place] 1 tab PO TID PRN 08/15/20 12/09/20 5-325] Insulin Detemir [Levemir Flextouch] 20 unit SQ BID 09/05/20 12/09/20 Azithromycin [Zithromax] 250 mg PO MOWEFR 09/30/20 12/09/20 Magnesium Oxide [Mag-Ox] 400 mg PO BID 11/21/20 12/09/20 calcitrioL [Calcitriol] 0.25 mcg PO DIRECTED 11/21/20 12/09/20 Albuterol Nebulized [Ventolin 2.5 mg INHALATION Q6HR PRN 12/03/20 12/09/20 Nebulized] Furosemide [Lasix] 40 mg PO BID@0900,1400 12/03/20 12/09/20 Previous Rx's Medication Instructions Recorded predniSONE 5 mg PO DAILY #0 08/21/19 Ipratropium-Albuterol Nebulize 3 ml INHALATION RT-QID 30 Days 10/31/20 [Duoneb 0.5 mg-3 mg/3 ml Soln] #120 ml Allergies Allergy/AdvReac Type Severity Reaction Status Date / Time clarithromycin [From Biaxin] AdvReac instructed Verified 12/10/20 10:31 not to take r/t lung transplant grapefruit AdvReac Unknown Verified 12/10/20 10:31 ibuprofen [From Motrin] AdvReac Abdominal Verified 12/10/20 10:31 Pain orange juice AdvReac Unknown Verified 12/10/20 10:31 Review of Systems ROS Statement: Those systems with pertinent positive or pertinent negative responses have been documented in the HPI. ROS Other: All systems not noted in ROS Statement are negative. Constitutional: Denies: fever Eyes: Denies: eye pain ENT: Denies: ear pain Respiratory: Denies: cough Cardiovascular: Denies: chest pain Endocrine: Denies: fatigue Gastrointestinal: Reports: as per HPI Genitourinary: Denies: dysuria Musculoskeletal: Denies: back pain Skin: Denies: rash Neurological: Reports: as per HPI Past Medical History Past Medical History: Heart Failure, COPD, Diabetes Mellitus, GERD/Reflux, GI Bleed, Hyperlipidemia, Hypertension, Liver Disease, Osteoarthritis (OA), Pneumonia, Prostate Disorder, Renal Disease, Respiratory Disorder Additional Past Medical History / Comment(s): Pt recently admitted to [facility] on 09/05/20 with hyperkalemia/acute kidney injury/ascities/transaminitis. Other hx; 2009 bilateral lung transplants, pt has had pne since transplant and prior to transplant had copd/pneumonia/pulmonary fibrosis/bronchitis/past chronic respiratory failure, chronic abdominal pain, liver cirrhosis, ascities with frequent paracentesis, lower GI bleed, diverticular disease, IDDM type II neuropathy bilateral hands/feet, CKD stage III, hypogammaglobulinemia with IVIG infusions, gout, diverticular disease, benign colon polyp, R abdominal hernia, BPH with surgery, chronic back pain, DDD History of Any Multi-Drug Resistant Organisms: None Reported Past Surgical History: Heart Catheterization, Hernia Repair Additional Past Surgical History / Comment(s): 2009 bilateral lung transplants at [facility], umbilical/bilateral inguinal hernia repairs and a femoral hernia repair, TURP, colonoscopy with benign polypectomy, bilateral cataract removals/lens implants Past Anesthesia/Blood Transfusion Reactions: No Reported Reaction Past Psychological History: Anxiety, Depression Smoking Status: Former smoker Past Alcohol Use History: None Reported Past Drug Use History: None Reported - Past Family History Mother Family Medical History: Asthma, COPD Additional Family Medical History / Comment(s): Mother at age 73 from asthma or COPD. Father Family Medical History: Asthma, Pneumonia Additional Family Medical History / Comment(s): Father at age 68 from asthma. Brother(s) Additional Family Medical History / Comment(s): Patient states he has 6 brothers and 5 sisters and is not sure of their medical history. Some have passed. Patient has one daughter with no major medical problems. General Exam Limitations: altered mental status General appearance: alert, in no apparent distress Head exam: Present: atraumatic Eye exam: Present: normal appearance, PERRL, EOMI ENT exam: Present: normal oropharynx Neck exam: Present: normal inspection. Absent: tenderness, meningismus Respiratory exam: Present: normal lung sounds bilaterally Cardiovascular Exam: Present: regular rate, normal rhythm GI/Abdominal exam: Present: soft, distended. Absent: tenderness Extremities exam: Present: normal inspection Neurological exam: Present: alert, CN II-XII intact. Absent: motor sensory deficit Expanded Neurological exam: Present: protecting the airway Patient oriented to: Present: person, place. Absent: time Motor strength exam: RUE: 5, LUE: 5, RLE: 5, LLE: 5 Eye Response: (4) open spontaneously Motor Response: (6) obeys commands Verbal Response: (4) confused conversation Psychiatric exam: Present: normal affect, normal mood Skin exam: Present: normal color Course Vital Signs 12/10/20 10:24 Temperature 97.6 F Pulse Rate 99 Respiratory 24 Rate Blood Pressure 155/87 O2 Sat by Pulse 97 Oximetry EKG Findings - EKG Comments: EKG Findings:: Normal sinus rhythm with rate of 71. TX 146. QRS 156. QT or 20. QTc 456. Left axis. LVH criteria. Right bundle branch block. Nonspecific ST-T. Medical Decision Making - Medical Decision Making Patient updated with plan. Case was discussed with Dr. Whyte, covering for Dr. Alaniz, sonia, who will admit. She is aware of pending chest x-ray and ammonia level. She does agree with neurology consult and requests continuing Keppra. Disposition Clinical Impression: New onset seizure Disposition: ADMITTED IP TO THIS HOSP Instructions (If sedation given, give patient instructions): Seizure/Epilepsy Discharge Instructions & Follow-Up Is patient prescribed a controlled substance at d/c from ED?: No Referrals: Louie Alaniz MD [Primary Care Provider] - 1-2 days Decision Time: 10:41
[2020-12-10] MEDS ORDERED: NALOXONE 0.4 MG/ML 1 ML VIAL IV PRN (10:42)
[2020-12-10] MEDS ORDERED: LORazepam 2 MG/ML INJ IV PRN (10:42)
[2020-12-10] MEDS: SODIUM CHLORIDE 0.9% 1,000 ML IV SCH (11:44)
--- NOTE | 2020-12-10 11:56 | XR ---
EXAMINATION TYPE: XR chest 2V DATE OF EXAM: 12/10/2020 COMPARISON: Chest x-ray dated 12/10/2020, 10/31/2020 HISTORY: Altered mental status TECHNIQUE: Frontal and lateral views of the chest are obtained. FINDINGS: There is airspace disease in the right lung. Pleural thickening along the right lateral ch est margin is present. No evident pneumothorax. Heart is enlarged. Aorta is dense. Postop changes are noted with surgical clips in the chest, there are wires at the lower aspect of the chest, patient is rotated. There are overlying leads and artifacts. IMPRESSION: Correlate for pneumonia. There is cardiomegaly.
[2020-12-10 15:04] LABS: Glucose,Whole Blood 152 mg/dL (75-99)
--- NOTE | 2020-12-10 16:42 | P.CNNES ---
History of Present Illness Consult date: 12/10/20 Requesting physician: Sinan Foley Reason for Consult: New onset seizure History of Present Illness: Patient is a 70-year-old male, with history of bilateral lung transplantation, multiple other medical issues, who was transferred from [facility] for further neurological evaluation for new onset seizure. Patient at present is obtunded, as he has received 0.5 mg Ativan now. History provided by patient's significant other, who knows him very well and is a very good historian. According to patient's significant other, she states that patient went to bed at 9:30 to 10 PM last night. He was feeling fine. Around midnight, she saw him in the garage, looking for food items in the cabinet, although only food items is in the freezer, and he was far from the freezer. But otherwise he was coherent. This morning at 5 AM patient significant other found him shaking and breathing funny. She called his name and he was unresponsive. She called the ambulance and the patient was taken to [facility]. Records from [facility] showed when EMS arrived, his GCS was 12, E3, V4, M5. His pulse ox was in the 70s, responded immediately to nonrebreather mask with improved oxygenation and improve coordination. When he arrived to the ER, he was noted to be alert and oriented and communicative. His blood sugar in [facility] was 165 mg/dL. His blood pressure was 203/127, heart rate 71, respirations 16, saturation 98% EKG with normal sinus rhythm with sinus arrhythmia. Right bundle branch block, left anterior fascicular block. Sars Cov-2 PCR negative, influenza screen negative for A and B, ammonia is mildly elevated 40/30. Blood alcohol level less than 10, urine drug screen positive fo r opiates. CBC with WBC 4.18, hemoglobin 9.8, MCV 96.1, platelets 67. Sodium was 137 potassium 4.4, glucose 141. BUN 38, creatinine 1.3. AST 50 normal, ALT 31 also normal. Lactic acid 2.6. PT/PTT normal. Patient's computed tomography scan of head showed no acute intracranial hemorrhage, midline shift or hydrocephalus. Mild chronic microvascular ischemic change. Inflammatory sinus disease, likely acute in the sphenoid sinuses and in the ethmoid air cells. While in the ER patient was noted to be GCS of 15 and was hemodynamically stable. However he was noted to have focal seizure and returned to decreased level of consciousness with myoclonic rigidity of his upper extremities and jaw clenching. Ativan 1 mg IV push was given. Keppra 500 mg IVPB was given. Patient's GCS decreased to 10. He was transferred to [facility] for further evaluation. Patient has history of bilateral lung transplant, Reg fundoplication, heart catheterization, chronic renal disease, COPD, type 2 diabetes, atrial fibrillation, osteoporosis. Patient also gets IVIG every 28 days for immuno deficiency. Patient also received Moderna first shot on 11/25/2020. I doubt would be the cause of current seizure type spells. Patient also has cirrhosis, renal insufficiency. Has undergone paracentesis done yesterday. Patient was supposed to undergo Pentamidine treatment today was missed due to current illness. Patient's nurse informed me that earlier he was fairly coherent, new his birthda y, his name, and that he was in the hospital. Patient then wanted to "pee", and then became restless, and wanted to get out of the bed. He was just given Ativan 0.5 mg IV. Therefore he is sedated. He has not had any seizure activity in the [facility]. Patient has history of smoking 1 pack per day for unknown period of time. He quit smoking 20-30 years ago after his lung transplant. Review of Systems ROS unobtainable: due to mental status Past Medical History Past Medical History: Heart Failure, COPD, Diabetes Mellitus, GERD/Reflux, GI Bleed, Hyperlipidemia, Hypertension, Liver Disease, Osteoarthritis (OA), Pneumonia, Prostate Disorder, Renal Disease, Respiratory Disorder Additional Past Medical History / Comment(s): Pt recently admitted to [facility] on 09/05/20 with hyperkalemia/acute kidney injury/ascities/transaminitis. Other hx; 2008 bilateral lung transplants, pt has had pne since transplant and prior to transplant had copd/pneumonia/pulmonary fibrosis/bronchitis/past chronic respiratory failure, chronic abdominal pain, liver cirrhosis, ascities with frequent paracentesis, lower GI bleed, diverticular disease, IDDM type II neuropathy bilateral hands/feet, CKD stage III, hypogammaglobulinemia with IVIG infusions, gout, diverticular disease, benign colon polyp, R abdominal hernia, BPH with surgery, chronic back pain, DDD History of Any Multi-Drug Resistant Organisms: None Reported Past Surgical History: Heart Catheterization, Hernia Repair Additional Past Surgical History / Comment(s): 2009 bilateral lung transplants at [facility], umbilical/bilateral inguinal hernia repairs and a femoral hernia repair, TURP, colonoscopy with benign polypectomy, bilateral cataract removals/lens implants Past Anesthesia/Blood Transfusion Reactions: No Reported Reaction Past Psychological History: Anxiety, Depression Smoking Status: Former smoker Past Alcohol Use History: None Reported Past Drug Use History: None Reported - Past Family History Mother Family Medical History: Asthma, COPD Additional Family Medical History / Comment(s): Mother at age 73 from asthma or COPD. Father Family Medical History: Asthma, Pneumonia Additional Family Medical History / Comment(s): Father at age 68 from asthma. Brother(s) Additional Family Medical History / Comment(s): Patient states he has 6 brothers and 5 sisters and is not sure of their medical history. Some have passed. Patient has one daughter with no major medical problems. Medications and Allergies Home Medications Medication Instructions Recorded Confirmed Type Alendronate Sodium [Fosamax] 70 mg PO WE 11/06/13 12/10/20 History Ergocalciferol (Vitamin D2) 50,000 units PO DIRECTED 11/06/13 12/10/20 History [Drisdol] Fludrocortisone [Florinef] 0.1 mg PO DAILY 11/06/13 12/10/20 History Metoprolol Succinate (ER) [Toprol 100 mg PO DAILY 11/06/13 12/10/20 History XL] Tacrolimus [Prograf] 2 mg PO BID 11/06/13 12/10/20 History Multivitamins, Thera [Multivitamin 1 tab PO DAILY 07/23/16 12/10/20 History (formulary)] Ferrous Sulfate [Iron (65 MG 325 mg PO DAILY 09/29/16 12/10/20 History Elemental)] Allopurinol [Zyloprim] 100 mg PO BID 05/06/17 12/10/20 History Metoclopramide [Reglan] 10 mg PO DAILY 05/06/17 12/10/20 History Omeprazole [PriLOSEC] 40 mg PO BID 03/02/18 12/10/20 History Sertraline [Zoloft] 50 mg PO DAILY 03/02/18 12/10/20 History Tacrolimus [Prograf] 0.5 mg PO BID 08/16/19 12/10/20 History Tamsulosin HCl [Flomax] 0.4 mg PO DAILY 08/16/19 12/10/20 History predniSONE 5 mg PO DAILY #0 08/21/19 12/10/20 Rx Atorvastatin [Lipitor] 10 mg PO DAILY 05/30/20 12/10/20 History Sodium Bicarbonate 650 mg PO BID 08/05/20 12/10/20 History HYDROcodone/APAP 5-325MG [[place] 1 tab PO TID PRN 08/15/20 12/10/20 History 5-325] Insulin Detemir [Levemir Flextouch] 20 unit SQ BID 09/05/20 12/10/20 History Azithromycin [Zithromax] 250 mg PO MOWEFR 09/30/20 12/10/20 History Magnesium Oxide [Mag-Ox] 400 mg PO BID 11/21/20 12/10/20 History calcitrioL [Calcitriol] 0.25 mcg PO TUFR 11/21/20 12/10/20 History Furosemide [Lasix] 40 mg PO BID@0900,1400 12/03/20 12/10/20 History Ipratropium-Albuterol Nebulize 3 ml INHALATION RT-QID PRN 12/10/20 12/10/20 History [Duoneb 0.5 mg-3 mg/3 ml Soln] Triamcinolone 0.1% Cream [Kenalog 1 applicatio TOPICAL BID 12/10/20 12/10/20 History 0.1% Cream] Allergies Allergy/AdvReac Type Severity Reaction Status Date / Time clarithromycin [From Biaxin] AdvReac instructed Verified 12/10/20 13:03 not to take r/t lung transplant grapefruit AdvReac Unknown Verified 12/10/20 13:03 ibuprofen [From Motrin] AdvReac Abdominal Verified 12/10/20 13:03 Pain orange juice AdvReac Unknown Verified 12/10/20 13:03 Physical Examination - Vital Signs Vital Signs: Vital Signs Temp Pulse Resp BP Pulse Ox 12/10/20 10:24 97.6 F 99 24 155/87 97 Intake and Output 12/09/20 12/10/20 12/10/20 22:59 06:59 14:59 Other: Weight 64.41 kg Patient is an elderly male, laying in the bed, sleeping, snoring, as he has recently received Ativan 0.5 mg IV. Per nurse report, patient prior to g iving Ativan, new his name, birthday and that he was in the hospital, although did not know the exact name. He could not tell the year. He knew that he had undergone paracentesis the day prior. There was no slurred speech noted by the nurse. At present patient is sedated. Attention, concentration and fund of knowledge is limited. On cranial examination, pupils are round and reacting to light, visual harmon cannot be checked. Oculocephalics are slightly inhibited. Face is symmetric, tongue cannot be checked. Palatal elevation and sensation cannot be checked, hearing and shoulder shrug or facial sensations cannot be checked. On muscle strength testing, patient asleep, therefore muscle strength cannot be checked. He does move all activities equally per nurse. Tone is equal. Deep tendon reflexes are diminished. Plantars are flat. Sensory to touch cannot be checked. Cerebellar function cannot be checked. Gait cannot be checked. On general examination, there is no carotid bruit or murmur, S1-S2 audible. Abdomen is soft and protuberant. Chest is clear. Peripheral pulses are present. Patient has peripheral edema. Results - Laboratory Findings CBC and BMP: 12/11/20 05:31 12/11/20 05:31 Assessment and Plan Assessment: * New onset seizure, unclear etiology. Rule out metabolic causes. * History of bilateral lung transplantation. * Hepatic cirrhosis. * Renal insufficiency, mild * History of hypogammaglobulinemia, on IVIG treatments every 28 days. * COPD * Diabetes * Heart failure * Hypertension * Osteoarthritis Plan: * EEG will be checked. * Patient started on Keppra 500 mg every 12 hours. * MRI of the brain with and without contrast rule out any opportunistic infection, or mass, for new onset seizure. * Medical management as per IM. * We will follow.
--- NOTE | 2020-12-10 17:43 | EEG ---
ELECTROENCEPHALOGRAM REPORT DATE OF SERVICE: 12/10/2020 PREAMBLE: This is a 70-year-old male with new onset seizure. EEG FINDINGS: This is a 21 channel routine EEG recording patient utilizing 10/20 international system with referential and bipolar montages. Background consists of moderately well- developed, poorly regulated, mixed frequency of diffuse moderate to low voltage delta slowing in 1-2 hertz. Some intermittent superimposed fast frequency activity was also seen. Some intermittent sleep spindles were also seen during the study. Well- formed awake pattern not seen in the entire study. Photic stimulation and hyperventilation were not performed. No focal or generalized epileptiform activity was seen. IMPRESSION: This is an abnormal EEG due to background slowing of at least moderate degree. Patient was asleep partly during the study as well. Well-formed awake pattern not seen in the entire study. This is suggestive of generalized cerebral dysfunction as can be seen with toxic metabolic encephalopathy or due to diffuse structural brain abnormality or medication effect. No epileptiform activity was seen. MMODL / IJN: [id number] / ELVIRA
[2020-12-10 18:50] LABS: Glucose,Whole Blood 151 mg/dL (75-99)
--- NOTE | 2020-12-10 19:17 | P.HPIM ---
History of Present Illness H&P Date: 12/10/20 Chief Complaint: Seizure This is a 70-year-old pleasant gentleman, with known history of bilateral lung transplantation, COPD, GI bleed, diabetes mellitus, liver disease, transferred from [facility], secondary to new onset seizure. According to patient, he had seizures in the past, however he is unreliable with the history today, and he is not reliable whether he takes compliance to medications or not for seizures. He was transferred from [facility], and was given IV Keppra, he was obtunded on his arrival at [facility], his pulse ox was in the 70s, nonrebreather mask was provided, with improved oxygenation, and improvement of obtundation. Patient's blood sugar was 165, blood pressure was 202/127, heart rate was 71, he was given Keppra as well as IV benzodiazepine, 1m iv ativan when seen in ER by myself he was obtunded, but struggles to give me answers, has a bedpan in place and a flor cath. from chart review he has received ivig every 4 wks for immunodeficiency, he is for his mother no shot was November 25, has history of cirrhosis and renal sufficiency, apparently notes mention that patient underwent paracentesis yesterday, and pentamidine treatment. Which was due today however it was missed secondary to the current ER visit. Review of Systems ROS unobtainable: due to mental status Past Medical History Past Medical History: Heart Failure, COPD, Diabetes Mellitus, GERD/Reflux, GI Bleed, Hyperlipidemia, Hypertension, Liver Disease, Osteoarthritis (OA), Pneumonia, Prostate Disorder, Renal Disease, Respiratory Disorder Additional Past Medical History / Comment(s): Pt recently admitted to [facility] on 09/05/20 with hyperkalemia/acute kidney injury/ascities/transaminitis. Other hx; 2008 bilateral lung transplants, pt has had pne since transplant and prior to transplant had copd/pneumonia/pulmonary fibrosis/bronchitis/past chronic respiratory failure, chronic abdominal pain, liver cirrhosis, ascities with frequent paracentesis, lower GI bleed, diverticular disease, IDDM type II neuropathy bilateral hands/feet, CKD stage III, hypogammaglobulinemia with IVIG infusions, gout, diverticular disease, benign colon polyp, R abdominal hernia, BPH with surgery, chronic back pain, DDD History of Any Multi-Drug Resistant Organisms: None Reported Past Surgical History: Heart Catheterization, Hernia Repair Additional Past Surgical History / Comment(s): 2009 bilateral lung transplants at [facility], umbilical/bilateral inguinal hernia repairs and a femoral hernia repair, TURP, colonoscopy with benign polypectomy, bilateral cataract removals/lens implants Past Anesthesia/Blood Transfusion Reactions: No Reported Reaction Past Psychological History: Anxiety, Depression Smoking Status: Former smoker Past Alcohol Use History: None Reported Past Drug Use History: None Reported - Past Family History Mother Family Medical History: Asthma, COPD Additional Family Medical History / Comment(s): Mother at age 73 from asthma or COPD. Father Family Medical History: Asthma, Pneumonia Additional Family Medical History / Comment(s): Father at age 68 from asthma. Brother(s) Additional Family Medical History / Comment(s): Patient states he has 6 brothers and 5 sisters and is not sure of their medical history. Some have passed. Patient has one daughter with no major medical problems. Medications and Allergies Home Medications Medication Instructions Recorded Confirmed Type Alendronate Sodium [Fosamax] 70 mg PO WE 11/06/13 12/10/20 History Ergocalciferol (Vitamin D2) 50,000 units PO DIRECTED 11/06/13 12/10/20 History [Drisdol] Fludrocortisone [Florinef] 0.1 mg PO DAILY 11/06/13 12/10/20 History Metoprolol Succinate (ER) [Toprol 100 mg PO DAILY 11/06/13 12/10/20 History XL] Tacrolimus [Prograf] 2 mg PO BID 11/06/13 12/10/20 History Multivitamins, Thera [Multivitamin 1 tab PO DAILY 07/23/16 12/10/20 History (formulary)] Ferrous Sulfate [Iron (65 MG 325 mg PO DAILY 09/29/16 12/10/20 History Elemental)] Allopurinol [Zyloprim] 100 mg PO BID 05/06/17 12/10/20 History Metoclopramide [Reglan] 10 mg PO DAILY 05/06/17 12/10/20 History Omeprazole [PriLOSEC] 40 mg PO BID 03/02/18 12/10/20 History Sertraline [Zoloft] 50 mg PO DAILY 03/02/18 12/10/20 History Tacrolimus [Prograf] 0.5 mg PO BID 08/16/19 12/10/20 History Tamsulosin HCl [Flomax] 0.4 mg PO DAILY 08/16/19 12/10/20 History predniSONE 5 mg PO DAILY #0 08/21/19 12/10/20 Rx Atorvastatin [Lipitor] 10 mg PO DAILY 05/30/20 12/10/20 History Sodium Bicarbonate 650 mg PO BID 08/05/20 12/10/20 History HYDROcodone/APAP 5-325MG [Heaters 1 tab PO TID PRN 08/15/20 12/10/20 History 5-325] Insulin Detemir [Levemir Flextouch] 20 unit SQ BID 09/05/20 12/10/20 History Azithromycin [Zithromax] 250 mg PO MOWEFR 09/30/20 12/10/20 History Magnesium Oxide [Mag-Ox] 400 mg PO BID 11/21/20 12/10/20 History calcitrioL [Calcitriol] 0.25 mcg PO TUFR 11/21/20 12/10/20 History Furosemide [Lasix] 40 mg PO BID@0900,1400 12/03/20 12/10/20 History Ipratropium-Albuterol Nebulize 3 ml INHALATION RT-QID PRN 12/10/20 12/10/20 History [Duoneb 0.5 mg-3 mg/3 ml Soln] Triamcinolone 0.1% Cream [Kenalog 1 applicatio TOPICAL BID 12/10/20 12/10/20 History 0.1% Cream] Allergies Allergy/AdvReac Type Severity Reaction Status Date / Time clarithromycin [From Biaxin] AdvReac instructed Verified 12/10/20 13:03 not to take r/t lung transplant grapefruit AdvReac Unknown Verified 12/10/20 13:03 ibuprofen [From Motrin] AdvReac Abdominal Verified 12/10/20 13:03 Pain orange juice AdvReac Unknown Verified 12/10/20 13:03 Physical Exam Vitals: Vital Signs Temp Pulse Resp BP Pulse Ox 12/10/20 13:00 80 18 153/77 96 12/10/20 10:24 97.6 F 99 24 155/87 97 Intake and Output 12/09/20 12/10/20 12/10/20 22:59 06:59 14:59 Other: Weight 64.41 kg - Constitutional General appearance: cooperative, no acute distress - EENT Eyes: EOMI, dentition normal ENT: NA/AT, normal oropharynx - Neck Neck: normal ROM - Respiratory Respiratory: bilateral: CTA, negative: diminished, dullness, rales - Cardiovascular Rhythm: regular Heart sounds: normal: S1, S2 Abnormal Heart Sounds: no systolic murmur, no diastolic murmur, no rub, no S3 Gallop, no S4 Gallop, no click, no other - Gastrointestinal General gastrointestinal: normal bowel sounds - Genitourinary Flor catheter - Psychiatric Obtunded and lethargic Assessment and Plan Plan: 1. Acute seizure disorder, per patient, he has a history of seizures in the past this could be a conflict as the notes from the chart mentioned that this will be a new onset seizure, patient is receiving IV Keppra, serum ammonia level was normal, check EEG of the brain, MRI of the brain, consult with neurology, 2. Possible aspiration pneumonia, with infiltrate on chest x-ray, start on IV Zosyn, check pro- 3. History of hepatic liver disease with cirrhosis, follow transaminitis, and ammonia levels normal on admission, 3. History of hypo-gammaglobinemia, on IVIG treatments every 28 days, 4. COPD currently nonsmoker, nebulized treatment, when necessary 5. Metabolic encephalopathy with obtundation, mostly related to seizure episode as well as sedation, patient received IV Ativan, in the emergency room, EEG to be done, MRI to be done, neurology consultation, serum ammonia levels normal on admission 6. Abnormal EKG, with bifascicular block, LVH, age undetermined septal infarct 7 Diabetes mellitus type 2 follow the sugars, check A1c NovoLog scale, restart 8 History of bilateral lung transplantation on oral prednisone, 5 mg maintenance daily Zithromax 250 mg 3 times a week 9 Hypertension restart metoprolol 10 Acute kidney injury underlying CK D 11 on Florinef for unknown reason, either adrenal insufficiency, or autonomic dysfunction Chronic prednisone use, on 5 mg, start oral home dose at 5 mg might need hydrocortisone Prognosis guarded
[2020-12-10 21:45] LABS: Glucose,Whole Blood 154 mg/dL (75-99)
[2020-12-10] MEDS: predniSONE 5 MG TAB PO SCH (21:53)
[2020-12-10] MEDS: TACROLIMUS 0.5 MG CAP PO SCH (21:53)
[2020-12-10] MEDS: TACROLIMUS 1 MG CAP PO SCH (21:53)
[2020-12-10] MEDS: INSULIN DETEMIR (LEVEMIR) 100 UNIT/ML SYR SQ SCH (21:53)
[2020-12-10] MEDS: SODIUM BICARBONATE TAB 650 MG TAB PO SCH (21:53)
[2020-12-10] MEDS: levETIRAcetam IV 500 MG in SODIUM CHLORIDE 0.9% 100 ML IVPB SCH (21:54)
[2020-12-10] MEDS: PIPERACILLIN-TAZOBACTAM 3.375 GM in SODIUM CHLORIDE 0.9% 100 ML IVPB SCH (22:37)
[2020-12-11] MEDS: PIPERACILLIN-TAZOBACTAM 3.375 GM in SODIUM CHLORIDE 0.9% 100 ML IVPB SCH ×3 (03:51→20:30)
[2020-12-11 06:41] LABS: Anisocytosis Slight; Basophils % (A) 0 %; Eosinophils # (A) 0.1 k/uL (0-0.7); Eosinophils % (A) 1 %; HGB 10.2 gm/dL (13.0-17.5); Hypochromasia Slight; Lymphocytes # (A) 0.5 k/uL (1.0-4.8); Lymphocytes % (A) 8 %; MCH 30.1 pg (25.0-35.0); MCV 94.1 fL (80.0-100.0); Mean Platelet Volume 8.3; Monocytes # (A) 0.6 k/uL (0-1.0); Monocytes % (A) 9 %; Neutrophils # (A) 4.9 k/uL (1.3-7.7); Neutrophils % (A) 81 %; RDW 17.4 % (11.5-15.5)
[2020-12-11 06:50] LABS: Platelet Count 67 k/uL (150-450)
[2020-12-11 07:35] LABS: Glucose,Whole Blood 104 mg/dL (75-99)
[2020-12-11] MEDS: levETIRAcetam IV 500 MG in SODIUM CHLORIDE 0.9% 100 ML IVPB SCH ×2 (07:41→21:31)
[2020-12-11] MEDS: SODIUM BICARBONATE TAB 650 MG TAB PO SCH ×2 (07:45→21:25)
[2020-12-11] MEDS: TACROLIMUS 1 MG CAP PO SCH ×2 (07:45→21:25)
[2020-12-11] MEDS: AZITHROMYCIN 250 MG TAB PO SCH (07:46)
[2020-12-11] MEDS: TACROLIMUS 0.5 MG CAP PO SCH ×2 (07:46→21:26)
[2020-12-11] MEDS: ATORVASTATIN 10 MG TAB PO SCH (07:46)
[2020-12-11] MEDS: METOPROLOL SUCCINATE (ER) 100 MG TAB.ER.24H PO SCH (07:46)
[2020-12-11] MEDS: predniSONE 5 MG TAB PO SCH (07:46)
[2020-12-11] MEDS: SERTRALINE 50 MG TAB PO SCH (07:46)
[2020-12-11] MEDS: FLUDROCORTISONE 0.1 MG TAB PO SCH (07:47)
[2020-12-11] MEDS: INSULIN DETEMIR (LEVEMIR) 100 UNIT/ML SYR SQ SCH ×2 (07:47→21:28)
[2020-12-11] MEDS: SODIUM CHLORIDE 0.9% 1,000 ML IV SCH (10:44)
[2020-12-11 11:12] LABS: INR 1.05 (0.90-1.11); Prothrombin Time 11.4 sec (9.9-11.9)
[2020-12-11 11:29] LABS: Glucose,Whole Blood 125 mg/dL (75-99)
[2020-12-11] MEDS: INSULIN ASPART (NovoLOG) 100 UNIT/ML VIAL SQ SCH ×3 (11:51→21:28)
--- NOTE | 2020-12-11 12:26 | P.PN ---
Subjective Progress Note Date: 12/11/20 HISTORY OF PRESENT ILLNESS This is a 70-year-old pleasant gentleman, with known history of bilateral lung transplantation, COPD, GI bleed, diabetes mellitus, liver disease, transferred from [facility], secondary to new onset seizure. According to patient, he had seizures in the past, however he is unreliable with the history today, and he is not reliable whether he takes compliance to medications or not for seizures. He was transferred from [facility], and was given IV Keppra, he was obtunded on his arrival at [facility], his pulse ox was in the 70s, nonrebreather mask was provided, with improved oxygenation, and improvement of obtundation. Patient's blood sugar was 165, blood pressure was 202/127, heart rate was 71, he was given Keppra as well as IV benzodiazepine, 1m iv ativan when seen in ER by myself he was obtunded, but struggles to give me answers, has a bedpan in place and a flor cath. from chart review he has received ivig every 4 wks for immunodeficiency, he is for his mother no shot was November 25, has history of cirrhosis and renal sufficiency, apparently notes mention that patient underwent paracentesis yesterday, and pentamidine treatment. Which was due today however it was missed secondary to the current ER visit. 12/11: Patient has been seen by neurology for new onset of seizure rule out metabolic causes. Patient was started on Keppra 500 mg every 12 hours, EEG reveals abnormal slowing moderate degree suggestive of toxic metabolic encephalopathy. MRI of the brain with and without contrast ordered. Pro- calcitonin's were 18.35 and 9.33. Repeat CBC today reveals WBC 6, hemoglobin 10.2, platelet count 67. Capillary blood glucose running between 104 and 154. Patient's mental status seems to be improved today. No weakness noted. Patient denies having any cough or choking with eating. He has a Flor catheter which will be discontinued this morning. REVIEW OF SYSTEMS Constitutional: No fever, no chills, no night sweats. No weight change. Reported weakness, Reported fatigue Reported lethargy. No daytime sleepiness. EENT: No headache. No blurred vision or double vision, no loss of vision. No loss of Hearing, no ringing in the ears, no dizziness. No nasal drainage or congestion. No epistaxis. No sore throat. Lungs: No shortness of breath, cough, no sputum production. No wheezing. Cardiovascular: No chest pain, no lower extremity edema. No palpitations. No paroxysmal nocturnal dyspnea. No orthopnea. No lightheadedness or dizziness. No syncopal episodes. Abdominal: No abdominal pain. No nausea, vomiting. No diarrhea. No constipation. No bloody or tarry stools. Reported loss of appetite. Genitourinary: No dysuria, increased frequency, urgency. No urinary retention. Musculoskeletal: No myalgias. No muscle weakness, no gait dysfunction, no frequent falls. No back pain. No neck pain. Integumentary: No wounds, no lesions. No rash or pruritus. No unusual bruising. No change in hair or nails. Neurologic: No aphasia. No facial droop. Reported change in mentation. No head injury. No headache. No paralysis. No paresthesia. Psychiatric: No depression. No anxiety. Endocrine: No abnormal blood sugars. PHYSICAL EXAMINATION Gen: This is a 70-year-old male patient resting in bed and in no acute distress. HEENT: Head is atraumatic, normocephalic. Pupils equal, round. Sclerae is anicteric. NECK: Supple. No JVD. No lymphadenopathy. No thyromegaly. LUNGS: Clear to auscultation. No wheezes or rhonchi. No intercostal ret ractions. HEART: Regular rate and rhythm. No murmur. ABDOMEN: Soft. Bowel sounds are present. No masses. No tenderness. EXTREMITIES: No pedal edema. No calf tenderness. NEUROLOGICAL: Patient is awake, alert and oriented x3. Cranial nerves 2 through 12 are grossly intact. ASSESSMENT AND PLAN 1. Acute seizure disorder, per patient, he has a history of seizures in the p ast this could be a conflict as the notes from the chart mentioned that this will be a new onset seizure, patient is receiving IV Keppra, serum ammonia level was normal, EEG asabove, MRI of the brain, consult with neurology appreciated. 2. Possible aspiration pneumonia, with infiltrate on chest x-ray, start on IV Zosyn, check pro- 3. History of hepatic liver disease with cirrhosis, follow transaminitis, and ammonia levels normal on admission, 3. History of hypo-gammaglobinemia, on IVIG treatments every 28 days, 4. COPD currently nonsmoker, nebulized treatment, when necessary 5. Metabolic encephalopathy with obtundation, mostly related to seizure episode as well as sedation, patient received IV Ativan, in the emergency room, EEG to be done, MRI to be done, neurology consultation, serum ammonia levels normal on admission 6. Abnormal EKG, with bifascicular block, LVH, age undetermined septal infarct 7. Diabetes mellitus type 2 follow the sugars, check A1c is 6.5. NovoLog sc francisco, Levemir 20 units twice daily 8. History of bilateral lung transplantation on oral prednisone 5 mg maintenance daily Zithromax 250 mg 3 times a week 9. Hypertension restart metoprolol 10. Acute kidney injury underlying CKD stage III. 11 on Florinef for unknown reason, either adrenal insufficiency, or autonomic dysfunction Chronic prednisone use, on 5 mg, start oral home dose at 5 mg might need hydrocortisone Prognosis guarded DISCHARGE PLAN Home. Impression and plan of care have been directed as dictated by the signing physician. Tiera Elder nurse practitioner acting as scribe for signing physician. Objective - Vital Signs Vital signs: Vital Signs Temp 98 F 12/11/20 02:00 Pulse 97 12/11/20 02:00 Resp 20 12/11/20 02:00 BP 151/74 12/11/20 02:00 Pulse Ox 97 12/11/20 02:00 Intake & Output 12/10/20 12/11/20 12/11/20 18:59 06:59 18:59 Intake Total 100 Output Total 300 Balance -200 Weight 64.41 kg Intake: Oral 100 Output: Urine 300 Other: Voiding Method Indwelling Catheter - Labs CBC & Chem 7: 12/11/20 05:31 Labs: Abnormal Lab Results - Last 24 Hours (Table) 12/10/20 12/10/20 12/10/20 Range/Units 15:03 18:47 21:40 RBC (4.30-5.90) m/uL Hgb (13.0-17.5) gm/dL Hct (39.0-53.0) % RDW (11.5-15.5) % Plt Count (150-450) k/uL Lymphocytes # (1.0-4.8) k/uL POC Glucose (mg/dL) 152 H 151 H 154 H (75-99) mg/dL 12/11/20 12/11/20 Range/Units 05:31 07:31 RBC 3.40 L (4.30-5.90) m/uL Hgb 10.2 L (13.0-17.5) gm/dL Hct 32.0 L (39.0-53.0) % RDW 17.4 H (11.5-15.5) % Plt Count 67 L (150-450) k/uL Lymphocytes # 0.5 L (1.0-4.8) k/uL POC Glucose (mg/dL) 104 H (75-99) mg/dL
[2020-12-11 12:40] LABS: African American GFR (CKD) 69.6 (60.0-200.0); Albumin/Globulin Ratio 1.25 (1.60-3.17); Anion Gap 6.4 mmol/L (4.00-12.00); BUN/Creat Ratio 32.5 Ratio (12.00-20.00); Carbon Dioxide 27.6 mmol/L (21.6-31.8); Globulin 2.4 g/dL (1.6-3.3); Magnesium 1.6 mg/dL (1.5-2.4); Non-African American GFR(CKD) 60.1 (60.0-200.0); Potassium 4.3 mmol/L (3.5-5.5); Total Bilirubin 0.6 mg/dL (0.2-1.2); Total Protein 5.4 g/dL (6.2-8.2)
--- NOTE | 2020-12-11 13:16 | P.PN ---
Subjective Progress Note Date: 12/11/20 Patient was seen for a follow-up. Patient's significant other was present. Patient is now fully alert and awake. Answering and following commands very well. No further seizures reported. Objective - Vital Signs Vital signs: Vital Signs Temp 98.0 F 12/11/20 12:10 Pulse 75 12/11/20 12:10 Resp 16 12/11/20 12:10 BP 167/85 12/11/20 12:10 Pulse Ox 94 L 12/11/20 12:10 Intake & Output 12/10/20 12/11/20 12/11/20 18:59 06:59 18:59 Intake Total 100 480 Output Total 300 Balance -200 480 Weight 64.41 kg Intake: Oral 100 480 Output: Urine 300 Other: Voiding Method Indwelling Catheter Indwelling Catheter - Exam Patient is alert and awake. He knows his name and states is 69 years old. Also knows that he is in [facility] but thinks he is in [place], [place]. Patient could not tell current month or year. In states Sera is the current president. Speech and language functions are normal. Attention, concentration and fund of knowledge is somewhat limited. On cranial nerve exam admission pupils are round and reacting to light, visual harmon are full, extraocular muscles are intact with no nystagmus. Face is symmetric, tongue protrudes to the midline. Palatal elevation and sensation normal, hearing and shoulder shrug normal. On muscle strength testing there is no pronator drift and the strength is normal in arms and legs. Reflexes are diminished and plantars are downgoing. Sensory touch is equal. No ataxia. Tone and bulk of muscles normal. Patient is thin built. - Labs CBC & Chem 7: 12/11/20 05:31 12/11/20 05:31 Labs: Abnormal Lab Results - Last 24 Hours (Table) 12/10/20 12/10/20 12/10/20 Range/Units 15:03 18:47 21:40 RBC (4.30-5.90) m/uL Hgb (13.0-17.5) gm/dL Hct (39.0-53.0) % RDW (11.5-15.5) % Plt Count (150-450) k/uL Lymphocytes # (1.0-4.8) k/uL BUN (9.0-27.0) mg/dL BUN/Creatinine Ratio (12.00-20.00) Ratio POC Glucose (mg/dL) 152 H 151 H 154 H (75-99) mg/dL Calcium (8.7-10.3) mg/dL AST (14-35) U/L Alkaline Phosphatase (41-126) U/L Total Protein (6.2-8.2) g/dL Albumin (3.80-4.90) g/dL Albumin/Globulin Ratio (1.60-3.17) g/dL Procalcitonin (0.02-0.09) ng/mL 12/11/20 12/11/20 12/11/20 Range/Units 05:31 05:31 05:31 RBC 3.40 L (4.30-5.90) m/uL Hgb 10.2 L (13.0-17.5) gm/dL Hct 32.0 L (39.0-53.0) % RDW 17.4 H (11.5-15.5) % Plt Count 67 L (150-450) k/uL Lymphocytes # 0.5 L (1.0-4.8) k/uL BUN 39.0 H (9.0-27.0) mg/dL BUN/Creatinine Ratio 32.50 H (12.00-20.00) Ratio POC Glucose (mg/dL) (75-99) mg/dL Calcium 8.0 L (8.7-10.3) mg/dL AST 43 H (14-35) U/L Alkaline Phosphatase 180 H (41-126) U/L Total Protein 5.4 L (6.2-8.2) g/dL Albumin 3.00 L (3.80-4.90) g/dL Albumin/Globulin Ratio 1.25 L (1.60-3.17) g/dL Procalcitonin 0.26 H (0.02-0.09) ng/mL 12/11/20 12/11/20 Range/Units 07:31 11:26 RBC (4.30-5.90) m/uL Hgb (13.0-17.5) gm/dL Hct (39.0-53.0) % RDW (11.5-15.5) % Plt Count (150-450) k/uL Lymphocytes # (1.0-4.8) k/uL BUN (9.0-27.0) mg/dL BUN/Creatinine Ratio (12.00-20.00) Ratio POC Glucose (mg/dL) 104 H 125 H (75-99) mg/dL Calcium (8.7-10.3) mg/dL AST (14-35) U/L Alkaline Phosphatase (41-126) U/L Total Protein (6.2-8.2) g/dL Albumin (3.80-4.90) g/dL Albumin/Globulin Ratio (1.60-3.17) g/dL Procalcitonin (0.02-0.09) ng/mL Assessment and Plan Assessment: * New onset seizure, unclear etiology. Rule out metabolic causes. Patient's oxygen saturation was in 70s at the scene, and blood pressure was very elevated 203/127, which may be the cause of seizure. Rule out hypertensive encephalopathy. * History of bilateral lung transplantation. * Hepatic cirrhosis. * Renal insufficiency, mild * History of hypogammaglobulinemia, on IVIG treatments every 28 days. * COPD * Diabetes * Heart failure * Hypertension * Osteoarthritis Plan: * EEG was performed yesterday, which was at least moderately abnormal due to background slowing, consistent with encephalopathy or postictal effect. No epileptiform activity was seen. * Continue Keppra 500 mg every 12 hours at this time. EEG showed no epileptiform activity. If the MRI is normal, may consider weaning of Keppra, as seizure could be provoked due to hypoxemia/accelerated hypertension. * Await MRI of the brain with and without contrast rule out any opportunistic infection, or mass, for new onset seizure. * Patient's mentation is back to normal. * Patient and his significant other was informed about [place] state law of no driving unless seizure free for 6 months, climbing ladders, operate dangerous machinery or unsupervised swimming.
--- NOTE | 2020-12-11 14:45 | MR ---
EXAMINATION TYPE: MR brain wo/w con DATE OF EXAM: 12/11/2020 COMPARISON: Outside CT head from yesterday HISTORY: New onset seizure. TECHNIQUE: Multiplanar, multisequence images of the brain and brainstem is performed without and with IV contras t, utilizing 6.5 mL intravenous Gadavist . FINDINGS: Diffusion weighted images demonstrate no evidence of a recent infarct or other diffusion ab normality. There is mild ventricular and sulcal prominence. Scattered areas of T2 hyperintensity thr oughout the white matter bilaterally with more confluent appearance of periventricular level. Old lac unar infarct deep left frontal lobe axial image 22 noted. T2 coronal weighted images show hippocampa l gyri to appear symmetric and felt within normal limits. Midline structures demonstrate normal morphology. The craniocervical junction appears within normal limits. Post contrast images demonstrate no abnormal enhancement. The dural venous sinuses appear pa tent. Mild mucosal thickening and patchy fluid in the sphenoid sinuses bilaterally is redemonstrated. Globes are intact bilaterally. IMPRESSION: Mild diffuse age-related cerebral atrophy and moderate nonspecific white matter changes p resumed on the basis of product of chronic small vessel ischemic change in patient's of this age are redemonstrated. 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 Acute on chronic sphenoid sinus disease.
[2020-12-11 17:30] LABS: Glucose,Whole Blood 148 mg/dL (75-99)
[2020-12-11 19:43] LABS: Glucose,Whole Blood 188 mg/dL (75-99)
[2020-12-12] MEDS: PIPERACILLIN-TAZOBACTAM 3.375 GM in SODIUM CHLORIDE 0.9% 100 ML IVPB SCH ×3 (03:50→19:59)
[2020-12-12 07:28] LABS: Glucose,Whole Blood 68 mg/dL (75-99)
[2020-12-12 07:51] LABS: Glucose,Whole Blood 65 mg/dL (75-99)
[2020-12-12] MEDS: INSULIN ASPART (NovoLOG) 100 UNIT/ML VIAL SQ SCH ×4 (08:12→21:22)
[2020-12-12] MEDS: SERTRALINE 50 MG TAB PO SCH (08:15)
[2020-12-12] MEDS: ATORVASTATIN 10 MG TAB PO SCH (08:15)
[2020-12-12] MEDS: INSULIN DETEMIR (LEVEMIR) 100 UNIT/ML SYR SQ SCH ×2 (08:16→21:23)
[2020-12-12] MEDS: TACROLIMUS 0.5 MG CAP PO SCH ×2 (08:16→21:20)
[2020-12-12] MEDS: predniSONE 5 MG TAB PO SCH (08:16)
[2020-12-12] MEDS: SODIUM BICARBONATE TAB 650 MG TAB PO SCH ×2 (08:16→21:19)
[2020-12-12] MEDS: TACROLIMUS 1 MG CAP PO SCH ×2 (08:17→21:19)
[2020-12-12] MEDS: FLUDROCORTISONE 0.1 MG TAB PO SCH (08:17)
[2020-12-12] MEDS: METOPROLOL SUCCINATE (ER) 100 MG TAB.ER.24H PO SCH (08:17)
[2020-12-12] MEDS: levETIRAcetam IV 500 MG in SODIUM CHLORIDE 0.9% 100 ML IVPB SCH ×2 (08:21→21:17)
[2020-12-12 08:47] LABS: Glucose,Whole Blood 94 mg/dL (75-99)
[2020-12-12 11:15] LABS: Glucose,Whole Blood 90 mg/dL (75-99)
[2020-12-12 13:39] VITALS: BMI 20.9
--- NOTE | 2020-12-12 16:29 | P.PN ---
Subjective Progress Note Date: 12/12/20 Patient was seen for a follow-up. Patient is laying comfortably in the bed. Offers no complaints. Denies headache. No pain anywhere. Denies abdominal discomfort although abdomen appears protuberant. No further seizures reported. Patient's significant other was not present. Objective - Vital Signs Vital signs: Vital Signs Temp 97.6 F 12/12/20 11:16 Pulse 85 12/12/20 11:16 Resp 16 12/12/20 11:16 BP 176/80 12/12/20 11:16 Pulse Ox 96 12/12/20 11:16 Intake & Output 12/11/20 12/12/20 12/12/20 18:59 06:59 18:59 Intake Total 840 Output Total 650 400 400 Balance 190 -400 -400 Weight 64.41 kg Intake: Oral 840 Output: Urine 650 400 400 Other: Voiding Method Indwelling Catheter Indwelling Catheter Indwelling Catheter # Bowel Movements 5 - Exam Patient is an elderly male, in no acute distress. Patient is alert awake oriented to time place and person. Patient knows it is November, although states his 2001 or 2000. He knows he is in [facility] in [place]. He has difficulty with recalling names and required prompting. He was able to tell the right president Biden but after prompting. Speech and language functions are normal. Attention, concentration and fund of knowledge is stable. Detailed cognitive function testing deferred. On cranial examination, pupils are round and reacting to light, visual harmon are full on confrontation, extraocular muscles are intact with no nystagmus. Face is symmetric, tongue protrudes to the midline. Palatal elevation and sensation normal, hearing and shoulder shrug normal, facial sensation normal. Shoulder shrug normal. On muscle strength testing, there is no pronator drift and the strength is normal in arms and legs distally and proximally. Deep tendon reflexes are symmetric and plantars downgoing. Sensory to touch is equal with no neglect. Cerebellar function showed no ataxia for [id number] testing. Patient is mildly tremulous. No dysdiadochokinesia. Tone is normal and bulk of muscles slightly overall decreased. Gait patient walks with walker, steady. On general examination, there is no carotid bruit or murmur, S1-S2 audible. Abdomen is soft nontender, although quite protuberant with positive ascites on percussion. Chest is clear. Peripheral pulses are present. - Labs CBC & Chem 7: 12/11/20 05:31 12/11/20 05:31 Labs: Abnormal Lab Results - Last 24 Hours (Table) 12/11/20 12/11/20 12/12/20 Range/Units 17:27 19:41 07:26 POC Glucose (mg/dL) 148 H 188 H 68 L (75-99) mg/dL 12/12/20 Range/Units 07:49 POC Glucose (mg/dL) 65 L (75-99) mg/dL Assessment and Plan Assessment: * New onset seizure, unclear etiology. Rule out metabolic causes. Patient's oxygen saturation was in 70s at the scene, and blood pressure was very elevated 203/127, which may be the cause of seizure. Rule out hypertensive encephalopathy. * History of bilateral lung transplantation. * Hepatic cirrhosis. * Renal insufficiency, mild * History of hypogammaglobulinemia, on IVIG treatments every 28 days. * COPD * Diabetes with hemoglobin A1c 6.5 on 10/26/2020 * Heart failure * Hypertension * Osteoarthritis Plan: * MRI of brain revealed mild diffuse age-related cerebral atrophy and moderate nonspecific white matter changes, presumed on the basis of product of chronic small vessel ischemic change in patient of this age artery demonstrated. 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 Acute on chronic sphenoid sinus disease. Patient is on Zosyn, which should cover sphenoid sinusitis. * EEG was performed 12/10/2020, which was at least moderately abnormal due to background slowing, consistent with encephalopathy or postictal effect. No epileptiform activity was seen. * Continue Keppra 500 mg every 12 hours at this time. EEG showed no epileptiform activity. As the MRI is normal, may consider weaning of Keppra, as seizure could be provoked due to hypoxemia/accelerated hypertension. Recommend patient follow up with neurologist as outpatient. Patient may need a repeat EEG before discontinuing Keppra. * Patient's mentation is back to normal. * Patient and his significant other was informed about [place] state law of no driving unless seizure free for 6 months, climbing ladders, operate dangerous machinery or unsupervised swimming. * Neurologically clear for discharge.
--- NOTE | 2020-12-12 16:43 | P.PN ---
Subjective Progress Note Date: 12/12/20 HISTORY OF PRESENT ILLNESS This is a 70-year-old pleasant gentleman, with known history of bilateral lung transplantation, COPD, GI bleed, diabetes mellitus, liver disease, transferred from [facility], secondary to new onset seizure. According to patient, he had seizures in the past, however he is unreliable with the history today, and he is not reliable whether he takes compliance to medications or not for seizures. He was transferred from [facility], and was given IV Keppra, he was obtunded on his arrival at [facility], his pulse ox was in the 70s, nonre breather mask was provided, with improved oxygenation, and improvement of obtundation. Patient's blood sugar was 165, blood pressure was 202/127, heart rate was 71, he was given Keppra as well as IV benzodiazepine, 1m iv ativan when seen in ER by myself he was obtunded, but struggles to give me answers, has a bedpan in place and a flor cath. from chart review he has received ivig every 4 wks for immunodeficiency, he is for his mother no shot was November 25, has history of cirrhosis and renal sufficiency, apparently notes mention that patient underwent paracentesis yesterday, and pentamidine treatment. Which was due today however it was missed secondary to the current ER visit. 12/11: Patient has been seen by neurology for new onset of seizure rule out metabolic causes. Patient was started on Keppra 500 mg every 12 hours, EEG reveals abnormal slowing moderate degree suggestive of toxic metabolic encephalopathy. MRI of the brain with and without contrast ordered. Pro- calcitonin's were 18.35 and 9.33. Repeat CBC today reveals WBC 6, hemoglobin 10.2, platelet count 67. Capillary blood glucose running between 104 and 154. Patient's mental status seems to be improved today. No weakness noted. Patient denies having any cough or choking with eating. He has a Flor catheter which will be discontinued this morning. 12/12: Patient was seen for follow-up today, is more alert, more conversant, no headaches's sign, no nausea no vomiting, denies any cough or fever, patient underwent MRI of the brain that shows mild diffuse age-related cerebral atrophy, and nonspecific white matter changes, in moderate degree of degree. There is an old left frontal lobe coronary infarct, acute on chronic sphenoid sinus disease, EEG of the brain as noted above, plan is to continue on Keppra at this time, await further recommendations from neurology. Patient is aware for no driving, until seizure-free for 6 months. REVIEW OF SYSTEMS Constitutional: No fever, no chills, no night sweats. No weight change. Reported weakness, Reported fatigue Reported lethargy. No daytime sleepiness. EENT: No headache. No blurred vision or double vision, no loss of vision. No loss of Hearing, no ringing in the ears, no dizziness. No nasal drainage or congestion. No epistaxis. No sore throat. Lungs: No shortness of breath, cough, no sputum production. No wheezing. Cardiovascular: No chest pain, no lower extremity edema. No palpitations. No paroxysmal nocturnal dyspnea. No orthopnea. No lightheadedness or dizziness. No syncopal episodes. Abdominal: No abdominal pain. No nausea, vomiting. No diarrhea. No constipation. No bloody or tarry stools. Reported loss of appetite. Genitourinary: No dysuria, increased frequency, urgency. No urinary retention. Musculoskeletal: No myalgias. No muscle weakness, no gait dysfunction, no frequent falls. No back pain. No neck pain. Integumentary: No wounds, no lesions. No rash or pruritus. No unusual bruising . No change in hair or nails. Neurologic: No aphasia. No facial droop. Reported change in mentation. No head injury. No headache. No paralysis. No paresthesia. Psychiatric: No depression. No anxiety. Endocrine: No abnormal blood sugars. Objective - Vital Signs Vital signs: Vital Signs Temp 97.6 F 12/12/20 11:16 Pulse 85 12/12/20 11:16 Resp 16 12/12/20 11:16 BP 176/80 12/12/20 11:16 Pulse Ox 96 12/12/20 11:16 Intake & Output 12/11/20 12/12/20 12/12/20 18:59 06:59 18:59 Intake Total 840 Output Total 650 400 400 Balance 190 -400 -400 Weight 64.41 kg Intake: Oral 840 Output: Urine 650 400 400 Other: Voiding Method Indwelling Catheter Indwelling Catheter Indwelling Catheter # Bowel Movements 5 - Labs CBC & Chem 7: 12/11/20 05:31 12/11/20 05:31 Labs: Abnormal Lab Results - Last 24 Hours (Table) 12/11/20 12/11/20 12/12/20 Range/Units 17:27 19:41 07:26 POC Glucose (mg/dL) 148 H 188 H 68 L (75-99) mg/dL 12/12/20 Range/Units 07:49 POC Glucose (mg/dL) 65 L (75-99) mg/dL
[2020-12-12 17:05] LABS: Glucose,Whole Blood 111 mg/dL (75-99)
[2020-12-12] MEDS: SODIUM CHLORIDE 0.9% 1,000 ML IV SCH (17:23)
[2020-12-12 21:01] LABS: Glucose,Whole Blood 166 mg/dL (75-99)
[2020-12-13] MEDS: PIPERACILLIN-TAZOBACTAM 3.375 GM in SODIUM CHLORIDE 0.9% 100 ML IVPB SCH ×2 (04:20→15:20)
[2020-12-13 07:26] LABS: Glucose,Whole Blood 62 mg/dL (75-99)
[2020-12-13 09:37] LABS: Glucose,Whole Blood 148 mg/dL (75-99)
[2020-12-13] MEDS: INSULIN ASPART (NovoLOG) 100 UNIT/ML VIAL SQ SCH ×4 (10:42→21:56)
[2020-12-13] MEDS: AZITHROMYCIN 250 MG TAB PO SCH (10:43)
[2020-12-13] MEDS: ATORVASTATIN 10 MG TAB PO SCH (10:43)
[2020-12-13] MEDS: SERTRALINE 50 MG TAB PO SCH (10:44)
[2020-12-13] MEDS: SODIUM BICARBONATE TAB 650 MG TAB PO SCH ×2 (10:44→21:57)
[2020-12-13] MEDS: predniSONE 5 MG TAB PO SCH (10:44)
[2020-12-13] MEDS: FLUDROCORTISONE 0.1 MG TAB PO SCH (10:44)
[2020-12-13] MEDS: INSULIN DETEMIR (LEVEMIR) 100 UNIT/ML SYR SQ SCH ×2 (10:45→21:56)
[2020-12-13] MEDS: METOPROLOL SUCCINATE (ER) 100 MG TAB.ER.24H PO SCH (10:59)
[2020-12-13] MEDS: levETIRAcetam IV 500 MG in SODIUM CHLORIDE 0.9% 100 ML IVPB SCH (11:00)
[2020-12-13] MEDS: TACROLIMUS 1 MG CAP PO SCH ×2 (11:00→21:58)
[2020-12-13] MEDS: TACROLIMUS 0.5 MG CAP PO SCH ×2 (11:00→21:58)
[2020-12-13 12:38] LABS: Glucose,Whole Blood 96 mg/dL (75-99)
[2020-12-13 13:23] LABS: Anisocytosis Slight; Basophils % (A) 1 %; Eosinophils # (A) 0.1 k/uL (0-0.7); Eosinophils % (A) 3 %; HCT 37.3 % (39.0-53.0); HGB 11.6 gm/dL (13.0-17.5); Hypochromasia Moderate; Lymphocytes # (A) 0.6 k/uL (1.0-4.8); Lymphocytes % (A) 11 %; MCH 29.5 pg (25.0-35.0); MCHC 31.1 g/dL (31.0-37.0); MCV 95.1 fL (80.0-100.0); Macrocytosis Slight; Mean Platelet Volume 7.2; Monocytes # (A) 0.5 k/uL (0-1.0); Monocytes % (A) 10 %; Neutrophils # (A) 3.8 k/uL (1.3-7.7); Neutrophils % (A) 73 %; Platelet Count 64 k/uL (150-450); RBC 3.92 m/uL (4.30-5.90); RDW 17.7 % (11.5-15.5); WBC 5.2 k/uL (3.8-10.6)
[2020-12-13] MEDS: DOXYCYCLINE 100 MG CAP PO SCH ×2 (14:50→21:58)
[2020-12-13 17:17] LABS: Glucose,Whole Blood 98 mg/dL (75-99)
--- NOTE | 2020-12-13 18:51 | P.PN ---
Subjective Progress Note Date: 12/13/20 HISTORY OF PRESENT ILLNESS This is a 70-year-old pleasant gentleman, with known history of bilateral lung transplantation, COPD, GI bleed, diabetes mellitus, liver disease, transferred from [facility], secondary to new onset seizure. According to patient, he had seizures in the past, however he is unreliable with the history today, and he is not reliable whether he takes compliance to medications or not for seizures. He was transferred from [facility], and was given IV Keppra, he was obtunded on his arrival at [facility], his pulse ox was in the 70s, nonre breather mask was provided, with improved oxygenation, and improvement of obtundation. Patient's blood sugar was 165, blood pressure was 202/127, heart rate was 71, he was given Keppra as well as IV benzodiazepine, 1m iv ativan when seen in ER by myself he was obtunded, but struggles to give me answers, has a bedpan in place and a flor cath. from chart review he has received ivig every 4 wks for immunodeficiency, he is for his mother no shot was November 25, has history of cirrhosis and renal sufficiency, apparently notes mention that patient underwent paracentesis yesterday, and pentamidine treatment. Which was due today however it was missed secondary to the current ER visit. 12/11: Patient has been seen by neurology for new onset of seizure rule out metabolic causes. Patient was started on Keppra 500 mg every 12 hours, EEG reveals abnormal slowing moderate degree suggestive of toxic metabolic encephalopathy. MRI of the brain with and without contrast ordered. Pro- calcitonin's were 18.35 and 9.33. Repeat CBC today reveals WBC 6, hemoglobin 10.2, platelet count 67. Capillary blood glucose running between 104 and 154. Patient's mental status seems to be improved today. No weakness noted. Patient denies having any cough or choking with eating. He has a Flor catheter which will be discontinued this morning. 12/12: Patient was seen for follow-up today, is more alert, more conversant, no headaches's sign, no nausea no vomiting, denies any cough or fever, patient underwent MRI of the brain that shows mild diffuse age-related cerebral atrophy, and nonspecific white matter changes, in moderate degree of degree. There is an old left frontal lobe coronary infarct, acute on chronic sphenoid sinus disease, EEG of the brain as noted above, plan is to continue on Keppra at this time, await further recommendations from neurology. Patient is aware for no driving, until seizure-free for 6 months. 12/13: Patient has had diarrhea at least 4 times already this morning, most likely related to IV Zosyn, patient has some cough, no fever, we discontinued IV Zosyn, and obtain stools for enteric pathogen, and C. diff toxin, patient has no significant abdominal pain, no purulence or cough, vitals are stable, with O2 sats 98% on room air, heart rate 55, blood pressure is the higher end of normal, between 160-170, creatinine are at 1.2, GFR of 60, we will start on lisinopril 10 mg twice a day, therefore renal function, and hypotension. Zosyn discontinued, and doxycycline 100 mg twice a day for suspected pneumonia, possible aspiration. Continue on Zithromax as scheduled Wednesday, unable to use Augmentin at this time, might need Flagyl, pro-calcitonin elevated at 0.2, REVIEW OF SYSTEMS Constitutional: No fever, no chills, no night sweats. No weight change. Reported weakness, Reported fatigue Reported lethargy. No daytime sleepiness. EENT: No headache. No blurred vision or double vision, no loss of vision. No loss of Hearing, no ringing in the ears, no dizziness. No nasal drainage or congestion. No epistaxis. No sore throat. Lungs: No shortness of breath, cough, no sputum production. No wheezing. Cardiovascular: No chest pain, no lower extremity edema. No palpitations. No paroxysmal nocturnal dyspnea. No orthopnea. No lightheadedness or dizziness. No syncopal episodes. Abdominal: No abdominal pain. No nausea, vomiting. No diarrhea. No constipation. No bloody or tarry stools. Reported loss of appetite. Genitourinary: No dysuria, increased frequency, urgency. No urinary retention. Musculoskeletal: No myalgias. No muscle weakness, no gait dysfunction, no frequent falls. No back pain. No neck pain. Integumentary: No wounds, no lesions. No rash or pruritus. No unusual bruising. No change in hair or nails. Neurologic: No aphasia. No facial droop. Reported change in mentation. No head injury. No headache. No paralysis. No paresthesia. Psychiatric: No depression. No anxiety. Endocrine: No abnormal blood sugars. Objective - Vital Signs Vital signs: Vital Signs Temp 97.8 F 12/13/20 03:49 Pulse 58 L 12/13/20 03:49 Resp 18 12/13/20 03:49 BP 173/72 12/13/20 03:49 Pulse Ox 99 12/13/20 03:49 Intake & Output 12/12/20 12/13/20 12/13/20 18:59 06:59 18:59 Intake Total 1300 Output Total 1300 600 Balance 0 -600 Weight 64.41 kg Intake: Oral 1300 Output: Urine 1300 600 Other: Voiding Method Indwelling Catheter Indwelling Catheter Toilet # Bowel Movements 2 - Constitutional General appearance: Present: cooperative, no acute distress - EENT Eyes: Present: EOMI, dentition normal, normal appearance ENT: Present: NA/AT, normal oropharynx - Neck Neck: Present: normal ROM - Respiratory Respiratory: negative: CTA, diminished, dullness - Gastrointestinal General gastrointestinal: Present: soft - Integumentary Integumentary: Present: decreased turgor, normal - Neurologic Neurologic: Present: CNII-XII intact - Musculoskeletal Musculoskeletal: Present: gait normal - Psychiatric Psychiatric: Present: A&O x's 3, appropriate affect, intact judgment & insight - Labs CBC & Chem 7: 12/13/20 13:03 12/11/20 05:31 Labs: Abnormal Lab Results - Last 24 Hours (Table) 12/12/20 12/12/20 12/13/20 Range/Units 17:03 20:59 07:23 POC Glucose (mg/dL) 111 H 166 H 62 L (75-99) mg/dL 12/13/20 Range/Units 09:35 POC Glucose (mg/dL) 148 H (75-99) mg/dL Assessment and Plan Plan: 1. Acute seizure disorder, per patient, he has a history of seizures in the past this could be a conflict as the notes from the chart mentioned that this will be a new onset seizure, patient is receiving IV Keppra, serum ammonia level was normal, check EEG of the brain, MRI of the brain, consult with neurology, 2. Possible aspiration pneumonia, with infiltrate on chest x-ray, start on IV Zosyn, check pro- 3. History of hepatic liver disease with cirrhosis, follow transaminitis, and ammonia levels normal on admission, 3. History of hypo-gammaglobinemia, on IVIG treatments every 28 days, 4. COPD currently nonsmoker, nebulized treatment, when necessary 5. Metabolic encephalopathy with obtundation, mostly related to seizure episode as well as sedation, patient received IV Ativan, in the emergency room, EEG to be done, MRI to be done, neurology consultation, serum ammonia levels normal on admission 6. Abnormal EKG, with bifascicular block, LVH, age undetermined septal infarct 7 Diabetes mellitus type 2 follow the sugars, check A1c NovoLog scale, restart 8 History of bilateral lung transplantation on oral prednisone, 5 mg maintenance daily Zithromax 250 mg 3 times a week 9 Hypertension restart metoprolol 10 Acute kidney injury underlying CK D 11 on Florinef for unknown reason, either adrenal insufficiency, or autonomic dysfunction Chronic prednisone use, on 5 mg, start oral home dose at 5 mg might need hydroco rtisone Prognosis guarded
[2020-12-13] MEDS: SODIUM CHLORIDE 0.9% 1,000 ML IV SCH (19:30)
[2020-12-13] MEDS: HYDROcodone/APAP 5-325MG 1 EACH TAB PO PRN (19:34)
[2020-12-13 21:13] LABS: Glucose,Whole Blood 181 mg/dL (75-99)
[2020-12-13] MEDS: lisinopriL 10 MG TAB PO SCH (21:58)
[2020-12-13] MEDS: levETIRAcetam 500 MG TAB PO SCH (21:58)
[2020-12-13] MEDS: allopurinoL 100 MG TAB PO SCH (22:02)
[2020-12-14 06:33] LABS: ALT 24 U/L (4-49); AST 41 U/L (17-59); African American GFR (CKD) 77 (>60 ml/min/1.73 sqM); Albumin 2.9 g/dL (3.5-5.0); Alkaline Phosphatase 129 U/L (38-126); Anion Gap 4 mmol/L; Blood Urea Nitrogen 31 mg/dL (9-20); Calcium 8.1 mg/dL (8.4-10.2); Carbon Dioxide 26 mmol/L (22-30); Chloride 108 mmol/L (98-107); Globulin 2.8 g/dL; Non-African American GFR(CKD) 67 (>60 ml/min/1.73 sqM); Potassium 3.9 mmol/L (3.5-5.1); Sodium 138 mmol/L (137-145); Total Bilirubin 0.3 mg/dL (0.2-1.3); Total Protein 5.7 g/dL (6.3-8.2)
[2020-12-14 06:43] LABS: Glucose 45 mg/dL (74-99)
[2020-12-14 06:50] LABS: Glucose,Whole Blood 59 mg/dL (75-99)
[2020-12-14] MEDS: INSULIN ASPART (NovoLOG) 100 UNIT/ML VIAL SQ SCH ×4 (06:57→21:10)
[2020-12-14 07:13] LABS: Glucose,Whole Blood 61 mg/dL (75-99)
[2020-12-14 07:37] LABS: Glucose,Whole Blood 84 mg/dL (75-99)
[2020-12-14] MEDS: TACROLIMUS 1 MG CAP PO SCH ×2 (08:16→21:14)
[2020-12-14] MEDS: SODIUM BICARBONATE TAB 650 MG TAB PO SCH ×2 (08:17→21:13)
[2020-12-14] MEDS: HYDROcodone/APAP 5-325MG 1 EACH TAB PO PRN ×2 (08:17→17:43)
[2020-12-14] MEDS: lisinopriL 10 MG TAB PO SCH ×2 (08:17→21:14)
[2020-12-14] MEDS: allopurinoL 100 MG TAB PO SCH ×2 (08:18→21:13)
[2020-12-14] MEDS: FLUDROCORTISONE 0.1 MG TAB PO SCH (08:18)
[2020-12-14] MEDS: DOXYCYCLINE 100 MG CAP PO SCH ×2 (08:18→21:13)
[2020-12-14] MEDS: MAGNESIUM OXIDE 400 MG TAB PO SCH ×2 (08:19→17:42)
[2020-12-14] MEDS: levETIRAcetam 500 MG TAB PO SCH ×2 (08:19→21:13)
[2020-12-14] MEDS: predniSONE 5 MG TAB PO SCH (08:19)
[2020-12-14] MEDS: SERTRALINE 50 MG TAB PO SCH (08:19)
[2020-12-14] MEDS: METOPROLOL SUCCINATE (ER) 100 MG TAB.ER.24H PO SCH (08:19)
[2020-12-14] MEDS: ATORVASTATIN 10 MG TAB PO SCH (08:19)
[2020-12-14] MEDS: TACROLIMUS 0.5 MG CAP PO SCH ×2 (08:20→21:13)
[2020-12-14 11:15] LABS: Glucose,Whole Blood 171 mg/dL (75-99)
[2020-12-14] MEDS: INSULIN DETEMIR (LEVEMIR) 100 UNIT/ML SYR SQ SCH ×2 (11:18→21:13)
[2020-12-14] MEDS: SODIUM CHLORIDE 0.9% 1,000 ML IV SCH (13:06)
[2020-12-14] MEDS: IOPAMIDOL CONTRAST (ORAL USE) VIAL PO PRN ×2 (13:42→14:55)
--- NOTE | 2020-12-14 16:27 | P.PN ---
Subjective Progress Note Date: 12/14/20 HISTORY OF PRESENT ILLNESS This is a 70-year-old pleasant gentleman, with known history of bilateral lung transplantation, COPD, GI bleed, diabetes mellitus, liver disease, transferred from [facility], secondary to new onset seizure. According to patient, he had seizures in the past, however he is unreliable with the history today, and he is not reliable whether he takes compliance to medications or not for seizures. He was transferred from [facility], and was given IV Keppra, he was obtunded on his arrival at [facility], his pulse ox was in the 70s, nonre breather mask was provided, with improved oxygenation, and improvement of obtundation. Patient's blood sugar was 165, blood pressure was 202/127, heart rate was 71, he was given Keppra as well as IV benzodiazepine, 1m iv ativan when seen in ER by myself he was obtunded, but struggles to give me answers, has a bedpan in place and a flor cath. from chart review he has received ivig every 4 wks for immunodeficiency, he is for his mother no shot was November 25, has history of cirrhosis and renal sufficiency, apparently notes mention that patient underwent paracentesis yesterday, and pentamidine treatment. Which was due today however it was missed secondary to the current ER visit. 12/11: Patient has been seen by neurology for new onset of seizure rule out metabolic causes. Patient was started on Keppra 500 mg every 12 hours, EEG reveals abnormal slowing moderate degree suggestive of toxic metabolic encephalopathy. MRI of the brain with and without contrast ordered. Pro- calcitonin's were 18.35 and 9.33. Repeat CBC today reveals WBC 6, hemoglobin 10.2, platelet count 67. Capillary blood glucose running between 104 and 154. Patient's mental status seems to be improved today. No weakness noted. Patient denies having any cough or choking with eating. He has a Flor catheter which will be discontinued this morning. 12/12: Patient was seen for follow-up today, is more alert, more conversant, no headaches's sign, no nausea no vomiting, denies any cough or fever, patient underwent MRI of the brain that shows mild diffuse age-related cerebral atrophy, and nonspecific white matter changes, in moderate degree of degree. There is an old left frontal lobe coronary infarct, acute on chronic sphenoid sinus disease, EEG of the brain as noted above, plan is to continue on Keppra at this time, await further recommendations from neurology. Patient is aware for no driving, until seizure-free for 6 months. 12/13: Patient has had diarrhea at least 4 times already this morning, most likely related to IV Zosyn, patient has some cough, no fever, we discontinued IV Zosyn, and obtain stools for enteric pathogen, and C. diff toxin, patient has no significant abdominal pain, no purulence or cough, vitals are stable, with O2 sats 98% on room air, heart rate 55, blood pressure is the higher end of normal, between 160-170, creatinine are at 1.2, GFR of 60, we will start on lisinopril 10 mg twice a day, therefore renal function, and hypotension. Zosyn discontinued, and doxycycline 100 mg twice a day for suspected pneumonia, possible aspiration. Continue on Zithromax as scheduled Wednesday, unable to use Augmentin at this time, might need Flagyl, pro-calcitonin elevated at 0.2, 12/14, the diarrhea has subsided, with intensity, C. diff is negative, still has some cough, however no fever, noted to have severe hypoglycemia with blood sugar 45, patient is now eating appropriately, we have backed down on NovoLog to 14 units twice a day, however on physical examination, patient is more distended in the abdomen, with worrisome for some organomegaly, which is very unusual for his very thin physique, we requested an abdomen and pelvis CT oral contrast only, creatinine is at borderline, history off lung transplantation, and immunosuppression. We will hold discharge today, with anticipated discharge in the next 24 hours, once blood sugar has stabilized. Oral Keppra tolerated, no change in blood pressure medication, he tends to be in the higher 140s to 150s. Pulse ox 97-99% on room air, on doxycycline, and maintenance prophylaxis Zithromax as previous. Chronically on oral prednisone 5 mg daily, along with PPI, no GI bleed or evidence off GI bleed at this time. Patient is on maintenance Lasix 40 twice a day, we will restart REVIEW OF SYSTEMS Constitutional: No fever, no chills, no night sweats. No weight change. Report ed weakness, Reported fatigue Reported lethargy. No daytime sleepiness. EENT: No headache. No blurred vision or double vision, no loss of vision. No loss of Hearing, no ringing in the ears, no dizziness. No nasal drainage or congestion. No epistaxis. No sore throat. Lungs: No shortness of breath, cough, no sputum production. No wheezing. Cardiovascular: No chest pain, no lower extremity edema. No palpitations. No paroxysmal nocturnal dyspnea. No orthopnea. No lightheadedness or dizziness. No syncopal episodes. Abdominal: No abdominal pain. No nausea, vomiting. No diarrhea. No co nstipation. No bloody or tarry stools. Reported loss of appetite. Genitourinary: No dysuria, increased frequency, urgency. No urinary retention. Musculoskeletal: No myalgias. No muscle weakness, no gait dysfunction, no frequent falls. No back pain. No neck pain. Integumentary: No wounds, no lesions. No rash or pruritus. No unusual bruising. No change in hair or nails. Neurologic: No aphasia. No facial droop. Reported change in mentation. No head injury. No headache. No paralysis. No paresthesia. Psychiatric: No depression. No anxiety. Endocrine: No abnormal blood sugars. Objective - Vital Signs Vital signs: Vital Signs Temp 97.8 F 12/14/20 11:59 Pulse 68 12/14/20 11:59 Resp 18 12/14/20 11:59 BP 144/70 12/14/20 11:59 Pulse Ox 98 12/14/20 11:59 Intake & Output 12/13/20 12/14/20 12/14/20 18:59 06:59 18:59 Intake Total 0 Balance 0 Weight 64.41 kg Intake: Intake, IV Titration 0 Amount Sodium Chloride 0.9% 1, 0 000 ml @ 20 mls/hr IV . Q24H BARB Rx#:[id number] Other: Voiding Method Toilet # Bowel Movements 3 - Labs CBC & Chem 7: 12/13/20 13:03 12/14/20 05:44 Labs: Abnormal Lab Results - Last 24 Hours (Table) 12/13/20 12/14/20 12/14/20 Range/Units 21:11 05:44 06:49 Chloride 108 H (98-107) mmol/L BUN 31 H (9-20) mg/dL Glucose 45 L* (74-99) mg/dL POC Glucose (mg/dL) 181 H 59 L (75-99) mg/dL Calcium 8.1 L (8.4-10.2) mg/dL Alkaline Phosphatase 129 H (38-126) U/L Total Protein 5.7 L (6.3-8.2) g/dL Albumin 2.9 L (3.5-5.0) g/dL 12/14/20 12/14/20 Range/Units 07:12 11:12 Chloride (98-107) mmol/L BUN (9-20) mg/dL Glucose (74-99) mg/dL POC Glucose (mg/dL) 61 L 171 H (75-99) mg/dL Calcium (8.4-10.2) mg/dL Alkaline Phosphatase (38-126) U/L Total Protein (6.3-8.2) g/dL Albumin (3.5-5.0) g/dL Microbiology - Last 24 Hours (Table) 12/13/20 17:00 Stool Culture - Preliminary Stool Assessment and Plan Plan: 1. Acute seizure disorder, per patient, he has a history of seizures in the past this could be a conflict as the notes from the chart mentioned that this will be a new onset seizure, patient is receiving IV Keppra, serum ammonia level was normal, check EEG of the brain, MRI of the brain, consult with neurology, 2. Possible aspiration pneumonia, with infiltrate on chest x-ray, start on IV Zosyn, changed to oral doxycycline, had diarrhea with Zosyn, Augmentin most likely would get the same reaction, we will use doxycycline instead. Continue on Zithromax for prophylaxis 3. History of hepatic liver disease with cirrhosis, follow transaminitis, and ammonia levels normal on admission, 3. History of hypo-gammaglobinemia, on IVIG treatments every 28 days, 4. COPD currently nonsmoker, nebulized treatment, when necessary 5. Metabolic encephalopathy with obtundation, mostly related to seizure episode as well as sedation, patient received IV Ativan, in the emergency room, EEG to be done, MRI to be done, neurology consultation, serum ammonia levels normal on admission 6. Abnormal EKG, with bifascicular block, LVH, age undetermined septal infarct 7 Diabetes mellitus type 2 follow the sugars, check A1c NovoLog scale, restart has hypoglycemia, decrease Levemir to 14 units twice a day, is on chronic predni sone 5 mg, will see titrate the next 24 hours prior to discharge 8 History of bilateral lung transplantation on oral prednisone, 5 mg maintenance daily Zithromax 250 mg 3 times a week 9 Hypertension restart metoprolol 10 Acute kidney injury underlying CK D 11 on Florinef for unknown reason, either adrenal insufficiency, or autonomic dysfunction 12 Chronic prednisone use, on 5 mg, start oral home dose at 5 mg might need hydrocortisone 13 Abdominal distention, worrisome for organomegaly, check CT abdomen and pelvis, evaluate liver, ascites, and splenomegaly Prognosis guarded
[2020-12-14 17:32] LABS: Glucose,Whole Blood 114 mg/dL (75-99)
[2020-12-14] MEDS: PANTOPRAZOLE 40 MG TABLET PO SCH (17:42)
[2020-12-14 21:03] LABS: Glucose,Whole Blood 207 mg/dL (75-99)
--- NOTE | 2020-12-14 23:05 | CT ---
EXAMINATION TYPE: CT abdomen pelvis wo con DATE OF EXAM: 12/14/2020 COMPARISON: 08/05/2020 HISTORY: Abdominal distention, organ omegaly. Oral contrast only. CT DLP: 465.40 mGycm Automated exposure control for dose reduction was used. Images obtained from the diaphragm to the floor the pelvis without contrast. There is some mild atele ctasis at the lung bases. There is small right pleural effusion. Heart is enlarged. There is some ora l contrast material in the stomach and distal esophagus. There is contrast in the proximal small emily l. There are no dilated loops. I see no sign of a bowel obstruction. There is moderate abdominal ascites fluid. Liver shows no focal defect. Spleen is enlarged and measur es 17 cm. Liver has some patchy hypodensity consistent with cirrhosis. No discrete mass seen. The stomach is in tact. There is no evidence of pancreatic mass. There is no adrenal mass. Kidneys have normal size. There is no hydronephrosis. Ureters are not dilat ed. There are multiple sigmoid diverticula. There is no diverticulitis. There is small amount of air in the urinary bladder probably from catheterization. The lumbar vertebra show slight dextroscoliosis. There is no compression fracture. There is degenerat phyllis disc space narrowing at L3-4. The bony pelvis appears intact. The hip joints are intact. There is moderate atherosclerotic vascular calcification. I see no intestinal wall thickening. Appendix is not seen. There is no sign of thickened appendix. Th ere is subcutaneous fluid over the anterior right mid abdomen that could be abdominal wall hernia con taining ascites fluid. IMPRESSION: There is moderate abdominal ascites that is improved slightly compared to old exam. Sigmoid diverticu losis unchanged. Splenomegaly unchanged. Hepatic changes suggestive of cirrhosis unchanged. Small rig ht pleural effusion unchanged.
[2020-12-15 06:56] LABS: Glucose,Whole Blood 60 mg/dL (75-99)
[2020-12-15 07:23] LABS: Glucose,Whole Blood 78 mg/dL (75-99)
[2020-12-15 07:31] LABS: African American GFR (CKD) 75 (>60 ml/min/1.73 sqM); Anion Gap 4 mmol/L; Blood Urea Nitrogen 33 mg/dL (9-20); Calcium 8.3 mg/dL (8.4-10.2); Carbon Dioxide 29 mmol/L (22-30); Chloride 107 mmol/L (98-107); Glucose 58 mg/dL (74-99); Non-African American GFR(CKD) 65 (>60 ml/min/1.73 sqM); Potassium 4.5 mmol/L (3.5-5.1); Sodium 140 mmol/L (137-145)
[2020-12-15] MEDS: TACROLIMUS 1 MG CAP PO SCH (07:42)
[2020-12-15] MEDS: MAGNESIUM OXIDE 400 MG TAB PO SCH (07:43)
[2020-12-15] MEDS: FUROSEMIDE 40 MG TAB PO SCH ×2 (07:43→13:35)
[2020-12-15] MEDS: TACROLIMUS 0.5 MG CAP PO SCH (07:43)
[2020-12-15] MEDS: DOXYCYCLINE 100 MG CAP PO SCH (07:43)
[2020-12-15] MEDS: FLUDROCORTISONE 0.1 MG TAB PO SCH (07:43)
[2020-12-15] MEDS: levETIRAcetam 500 MG TAB PO SCH (07:43)
[2020-12-15] MEDS: METOPROLOL SUCCINATE (ER) 100 MG TAB.ER.24H PO SCH (07:43)
[2020-12-15] MEDS: SODIUM BICARBONATE TAB 650 MG TAB PO SCH (07:43)
[2020-12-15 07:44] LABS: Anisocytosis Slight; Basophils % (A) 1 %; Eosinophils # (A) 0.2 k/uL (0-0.7); Eosinophils % (A) 4 %; HCT 31.2 % (39.0-53.0); HGB 10.3 gm/dL (13.0-17.5); Hypochromasia Slight; Lymphocytes # (A) 0.7 k/uL (1.0-4.8); Lymphocytes % (A) 15 %; MCH 30.6 pg (25.0-35.0); MCHC 32.8 g/dL (31.0-37.0); MCV 93.2 fL (80.0-100.0); Monocytes # (A) 0.6 k/uL (0-1.0); Monocytes % (A) 13 %; Neutrophils # (A) 3.1 k/uL (1.3-7.7); Neutrophils % (A) 65 %; RBC 3.35 m/uL (4.30-5.90); RDW 17.3 % (11.5-15.5); WBC 4.7 k/uL (3.8-10.6)
[2020-12-15] MEDS: HYDROcodone/APAP 5-325MG 1 EACH TAB PO PRN ×2 (07:44→13:53)
[2020-12-15] MEDS: lisinopriL 10 MG TAB PO SCH (07:44)
[2020-12-15] MEDS: predniSONE 5 MG TAB PO SCH (07:44)
[2020-12-15] MEDS: allopurinoL 100 MG TAB PO SCH (07:44)
[2020-12-15] MEDS: SERTRALINE 50 MG TAB PO SCH (07:45)
[2020-12-15] MEDS: PANTOPRAZOLE 40 MG TABLET PO SCH (07:45)
[2020-12-15] MEDS: INSULIN DETEMIR (LEVEMIR) 100 UNIT/ML SYR SQ SCH (07:45)
[2020-12-15] MEDS: ATORVASTATIN 10 MG TAB PO SCH (07:45)
[2020-12-15] MEDS: INSULIN ASPART (NovoLOG) 100 UNIT/ML VIAL SQ SCH ×2 (07:49→13:36)
[2020-12-15] MEDS: SODIUM CHLORIDE 0.9% 1,000 ML IV SCH (07:49)
[2020-12-15 07:55] LABS: Platelet Count 63 k/uL (150-450)
[2020-12-15] MEDS ORDERED: METOCLOPRAMIDE 10 MG TAB PO SCH (09:00)
[2020-12-15] MEDS ORDERED: TAMSULOSIN 0.4 MG CAP.ER.24H PO SCH (09:00)
[2020-12-15 11:33] VITALS: BP 155/70; PULSE 61; RESP 18; TEMP 98.4
[2020-12-15 12:13] LABS: Glucose,Whole Blood 211 mg/dL (75-99)
--- NOTE | 2020-12-15 17:27 | P.DS ---
Providers Date of admission: 12/11/20 10:55 Expected date of discharge: 12/15/20 Attending physician: Lilian Whyte Consults: 12/10/20 10:42 Consult Physician Urgent Consulting Provider: Jevon Faust Consult Reason/Comments: new onset seizure Do you want consulting provider notified?: Yes Primary care physician: [facility] Course: HISTORY OF PRESENT ILLNESS This is a 70-year-old pleasant gentleman, with known history of bilateral lung transplantation, COPD, GI bleed, diabetes mellitus, liver disease, transferred from [facility], secondary to new onset seizure. According to patient, he had seizures in the past, however he is unreliable with the history today, and he is not reliable whether he takes compliance to medications or not for seizures. He was transferred from [facility], and was given IV Keppra, he was obtunded on his arrival at [facility], his pulse ox was in the 70s, nonrebreather mask was provided, with improved oxygenation, and improvement of obtundation. Patient's blood sugar was 165, blood pressure was 202/127, heart rate was 71, he was given Keppra as well as IV benzodiazepine, 1m iv ativan when seen in ER by myself he was obtunded, but struggles to give me answers, has a bedpan in place and a flor cath. from chart review he has received ivig every 4 wks for immunodeficiency, he is for his mother no shot was November 25, has history of cirrhosis and renal sufficiency, apparently notes mention that patient underwent paracentesis yesterday, and pentamidine treatment. Which was due toda y however it was missed secondary to the current ER visit. 12/11: Patient has been seen by neurology for new onset of seizure rule out metabolic causes. Patient was started on Keppra 500 mg every 12 hours, EEG reveals abnormal slowing moderate degree suggestive of toxic metabolic encephalopathy. MRI of the brain with and without contrast ordered. Pro- calcitonin's were 18.35 and 9.33. Repeat CBC today reveals WBC 6, hemoglobin 10.2, platelet count 67. Capillary blood glucose running between 104 and 154. Patient's mental status seems to be improved today. No weakness noted. Patient denies having any cough or choking with eating. He has a Flor catheter which will be discontinued this morning. 6/17: Patient was seen for follow-up today, is more alert, more conversant, no headaches's sign, no nausea no vomiting, denies any cough or fever, patient underwent MRI of the brain that shows mild diffuse age-related cerebral atrophy, and nonspecific white matter changes, in moderate degree of degree. There is an old left frontal lobe coronary infarct, acute on chronic sphenoid sinus disease, EEG of the brain as noted above, plan is to continue on Keppra at this time, await further recommendations from neurology. Patient is aware for no driving, until seizure-free for 6 months. 12/13: Patient has had diarrhea at least 4 times already this morning, most likely related to IV Zosyn, patient has some cough, no fever, we discontinued IV Zosyn, and obtain stools for enteric pathogen, and C. diff toxin, patient has no significant abdominal pain, no purulence or cough, vitals are stable, with O2 sats 98% on room air, heart rate 55, blood pressure is the higher end of normal, between 160-170, creatinine are at 1.2, GFR of 60, we will start on lisinopril 10 mg twice a day, therefore renal function, and hypotension. Zosyn discontinued, and doxycycline 100 mg twice a day for suspected pneumonia, possible aspiration. Continue on Zithromax as scheduled Wednesday, unable to use Augmentin at this time, might need Flagyl, pro-calcitonin elevated at 0.2, 12/14, the diarrhea has subsided, with intensity, C. diff is negative, still has some cough, however no fever, noted to have severe hypoglycemia with blood sugar 45, patient is now eating appropriately, we have backed down on NovoLog to 14 units twice a day, however on physical examination, patient is more distended in the abdomen, with worrisome for some organomegaly, which is very unusual for his very thin physique, we requested an abdomen and pelvis CT oral contrast only, creatinine is at borderline, history off lung transplantation, and immunosuppression. We will hold discharge today, with anticipated discharge in the next 24 hours, once blood sugar has stabilized. Oral Keppra tolerated, no change in blood pressure medication, he tends to be in the higher 140s to 150s. Pulse ox 97-99% on room air, on doxycycline, and maintenance prophylaxis Zithromax as previous. Chronically on oral prednisone 5 mg daily, along with PPI, no GI bleed or evidence off GI bleed at this time. Patient is on maintenance Lasix 40 twice a day, we will restart 12/15 patient's doing much better today, with improvement of diarrhea, patient has a CAT scan that shows ascites and splenomegaly, however this is smaller than previous, patient does not follow with any yacht builder, we will refer to Dr. Lord for outpatient management, patient's eating today, no new fevers, cough is better, no new seizures, patient is tolerating diet, blood sugars are between 60-207 with the new adjustment of the Levemir, patient feels good enough to go home today, Keppra on discharge, with follow-up levels as outpatient. Neurology Dr. Phill Cooper as outpatient. FINAL DIAGNOSIS 1. Acute seizure disorder, per patient, he has a history of seizures in the past this could be a conflict as the notes from the chart mentioned that this will be a new onset seizure, patient is receiving IV Keppra, serum ammonia level was normal, check EEG of the brain, MRI of the brain, consult with neurology, 2. Aspiration pneumonia, with infiltrate on chest x-ray, start on IV Zosyn, changed to oral doxycycline, had diarrhea with Zosyn, Augmentin most likely would get the same reaction, we will use doxycycline instead. Continue on Zithromax for prophylaxis 3. History of hepatic liver disease with cirrhosis, follow transaminitis, and ammonia levels normal on admission, 3. History of hypo-gammaglobinemia, on IVIG treatments every 28 days, 4. COPD currently nonsmoker, nebulized treatment, when necessary 5. Metabolic encephalopathy with obtundation, mostly related to seizure episode as well as sedation, patient received IV Ativan, in the emergency room, EEG to be done, MRI to be done, neurology consultation, serum ammonia levels normal on admission 6. Abnormal EKG, with bifascicular block, LVH, age undetermined septal infarct 7 Diabetes mellitus type 2 follow the sugars, check A1c NovoLog scale, restart has hypoglycemia, decrease Levemir to 14 units twice a day, is on chronic prednisone 5 mg, will see titrate the next 24 hours prior to discharge 8 History of bilateral lung transplantation on oral prednisone, 5 mg maintenance daily Zithromax 250 mg 3 times a week 9 Hypertension restart metoprolol 10 Acute kidney injury underlying CK D 11 on Florinef for unknown reason, either adrenal insufficiency, or autonomic dysfunction 12 Chronic prednisone use, on 5 mg, start oral home dose at 5 mg might need hydrocortisone 13 Abdominal distention, worrisome for organomegaly, check CT abdomen and pelvis, evaluate liver, ascites, and splenomegaly 14 Ascites and splenomegaly, outpatient follow-up with Dr. Lord gastroenterology Stable and improved on discharge Discharge Medication List Alendronate Sodium [Fosamax] 70 mg PO WE 11/06/13 [History] Ergocalciferol (Vitamin D2) [Drisdol] 50,000 units PO DIRECTED 11/06/13 [History] Fludrocortisone [Florinef] 0.1 mg PO DAILY 11/06/13 [History] Metoprolol Succinate (ER) [Toprol XL] 100 mg PO DAILY 11/06/13 [History] Tacrolimus [Prograf] 2 mg PO BID 11/06/13 [History] Multivitamins, Thera [Multivitamin (formulary)] 1 tab PO DAILY 07/23/16 [History] Ferrous Sulfate [Iron (65 MG Elemental)] 325 mg PO DAILY 09/29/16 [History] Allopurinol [Zyloprim] 100 mg PO BID 05/06/17 [History] Metoclopramide [Reglan] 10 mg PO DAILY 05/06/17 [History] Omeprazole [PriLOSEC] 40 mg PO BID 03/02/18 [History] Sertraline [Zoloft] 50 mg PO DAILY 03/02/18 [History] Tacrolimus [Prograf] 0.5 mg PO BID 08/16/19 [History] Tamsulosin HCl [Flomax] 0.4 mg PO DAILY 08/16/19 [History] predniSONE 5 mg PO DAILY #0 08/21/19 [Rx] Atorvastatin [Lipitor] 10 mg PO DAILY 05/30/20 [History] Sodium Bicarbonate 650 mg PO BID 08/05/20 [History] HYDROcodone/APAP 5-325MG [[place] 5-325] 1 tab PO TID PRN 08/15/20 [History] Azithromycin [Zithromax] 250 mg PO MOWEFR 09/30/20 [History] Magnesium Oxide [Mag-Ox] 400 mg PO BID 11/21/20 [History] calcitrioL [Calcitriol] 0.25 mcg PO TUFR 11/21/20 [History] Furosemide [Lasix] 40 mg PO BID@0900,1400 12/03/20 [History] Ipratropium-Albuterol Nebulize [Duoneb 0.5 mg-3 mg/3 ml Soln] 3 ml INHALATION RT-QID PRN 12/10/20 [History] Triamcinolone 0.1% Cream [Kenalog 0.1% Cream] 1 applicatio TOPICAL BID 12/10/20 [History] Doxycycline [Vibramycin] 100 mg PO BID #14 cap 12/15/20 [Rx] Insulin Detemir (Levemir) [Levemir] 14 unit SQ BID syr 12/15/20 [Rx] levETIRAcetam [Keppra] 500 mg PO Q12HR #60 tab 12/15/20 [Rx] lisinopriL [Zestril] 10 mg PO BID #60 tab 12/15/20 [Rx] Patient Condition at Discharge: Fair Plan - Discharge Summary New Discharge Prescriptions: New Insulin Detemir (Levemir) [Levemir] 14 unit SQ BID syr Doxycycline [Vibramycin] 100 mg PO BID #14 cap levETIRAcetam [Keppra] 500 mg PO Q12HR #60 tab lisinopriL [Zestril] 10 mg PO BID #60 tab Continue Metoprolol Succinate (ER) [Toprol XL] 100 mg PO DAILY Tacrolimus [Prograf] 2 mg PO BID Fludrocortisone [Florinef] 0.1 mg PO DAILY Ergocalciferol (Vitamin D2) [Drisdol] 50,000 units PO DIRECTED Alendronate Sodium [Fosamax] 70 mg PO WE Multivitamins, Thera [Multivitamin (formulary)] 1 tab PO DAILY Ferrous Sulfate [Iron (65 MG Elemental)] 325 mg PO DAILY Allopurinol [Zyloprim] 100 mg PO BID Metoclopramide [Reglan] 10 mg PO DAILY Sertraline [Zoloft] 50 mg PO DAILY Omeprazole [PriLOSEC] 40 mg PO BID Tacrolimus [Prograf] 0.5 mg PO BID Tamsulosin HCl [Flomax] 0.4 mg PO DAILY predniSONE 5 mg PO DAILY #0 Atorvastatin [Lipitor] 10 mg PO DAILY Sodium Bicarbonate 650 mg PO BID HYDROcodone/APAP 5-325MG [[place] 5-325] 1 tab PO TID PRN PRN Reason: Pain Ipratropium-Albuterol Nebulize [Duoneb 0.5 mg-3 mg/3 ml Soln] 3 ml INHALATION RT-QID PRN PRN Reason: Shortness Of Breath Azithromycin [Zithromax] 250 mg PO MOWEFR calcitrioL [Calcitriol] 0.25 mcg PO TUFR Magnesium Oxide [Mag-Ox] 400 mg PO BID Furosemide [Lasix] 40 mg PO BID@0900,1400 Triamcinolone 0.1% Cream [Kenalog 0.1% Cream] 1 applicatio TOPICAL BID Discontinued Insulin Detemir [Levemir Flextouch] 20 unit SQ BID Discharge Medication List Alendronate Sodium [Fosamax] 70 mg PO WE 11/06/13 [History] Ergocalciferol (Vitamin D2) [Drisdol] 50,000 units PO DIRECTED 11/06/13 [History] Fludrocortisone [Florinef] 0.1 mg PO DAILY 11/06/13 [History] Metoprolol Succinate (ER) [Toprol XL] 100 mg PO DAILY 11/06/13 [History] Tacrolimus [Prograf] 2 mg PO BID 11/06/13 [History] Multivitamins, Thera [Multivitamin (formulary)] 1 tab PO DAILY 07/23/16 [History] Ferrous Sulfate [Iron (65 MG Elemental)] 325 mg PO DAILY 09/29/16 [History] Allopurinol [Zyloprim] 100 mg PO BID 05/06/17 [History] Metoclopramide [Reglan] 10 mg PO DAILY 05/06/17 [History] Omeprazole [PriLOSEC] 40 mg PO BID 03/02/18 [History] Sertraline [Zoloft] 50 mg PO DAILY 03/02/18 [History] Tacrolimus [Prograf] 0.5 mg PO BID 08/16/19 [History] Tamsulosin HCl [Flomax] 0.4 mg PO DAILY 08/16/19 [History] predniSONE 5 mg PO DAILY #0 08/21/19 [Rx] Atorvastatin [Lipitor] 10 mg PO DAILY 05/30/20 [History] Sodium Bicarbonate 650 mg PO BID 08/05/20 [History] HYDROcodone/APAP 5-325MG [[place] 5-325] 1 tab PO TID PRN 08/15/20 [History] Azithromycin [Zithromax] 250 mg PO MOWEFR 09/30/20 [History] Magnesium Oxide [Mag-Ox] 400 mg PO BID 11/21/20 [History] calcitrioL [Calcitriol] 0.25 mcg PO TUFR 11/21/20 [History] Furosemide [Lasix] 40 mg PO BID@0900,1400 12/03/20 [History] Ipratropium-Albuterol Nebulize [Duoneb 0.5 mg-3 mg/3 ml Soln] 3 ml INHALATION RT-QID PRN 12/10/20 [History] Triamcinolone 0.1% Cream [Kenalog 0.1% Cream] 1 applicatio TOPICAL BID 12/10/20 [History] Doxycycline [Vibramycin] 100 mg PO BID #14 cap 12/15/20 [Rx] Insulin Detemir (Levemir) [Levemir] 14 unit SQ BID syr 12/15/20 [Rx] levETIRAcetam [Keppra] 500 mg PO Q12HR #60 tab 12/15/20 [Rx] lisinopriL [Zestril] 10 mg PO BID #60 tab 12/15/20 [Rx] Follow up Appointment(s)/Referral(s): Kymberly Suresh MD [STAFF PHYSICIAN] - 1 Week (The office is closed at time of discarge, please call Wednesday for appt) Dalia Cooper MD [REFERRING] - 1 Week (the office is closed at the time of discharge, please call wednesday for appt) Louie Alaniz MD [Primary Care Provider] - 1-2 days (the office is closed at the time of discharge, please call wednesday for appt) Patient Instructions/Handouts: Seizure/Epilepsy Discharge Instructions & Follow-Up, Lisinopril (By mouth), Doxycycline (By mouth), Levetiracetam (By mouth) Discharge Disposition: HOME SELF-CARE
== END 2020-12-15 14:47 | disposition home or self-care (01) | DRG 100 ==
LOC: EC 10:19 → 6NMEDSUR 10:49 → 5NMEDONC 11:50 → OBSVTOIN 12-11 10:55
PROVIDERS: ADMIT Family Medicine; ATTEND Family Medicine
DX: G40.909 Epilepsy, unspecified, not intractable, without status epilepticus (principal); J69.0 Pneumonitis due to inhalation of food and vomit; G92 Toxic encephalopathy; I45.2 Bifascicular block; Z94.2 Lung transplant status; N17.9 Acute kidney failure, unspecified; I13.0 Hypertensive heart and chronic kidney disease with heart failure and stage 1 through stage 4 chronic kidney disease, or unspecified chronic kidney disease; D80.1 Nonfamilial hypogammaglobulinemia; R18.8 Other ascites; E27.40 Unspecified adrenocortical insufficiency; Z20.822 Contact with and (suspected) exposure to COVID-19; Z79.4 Long term (current) use of insulin; J44.9 Chronic obstructive pulmonary disease, unspecified; E78.5 Hyperlipidemia, unspecified; I50.9 Heart failure, unspecified; M19.90 Unspecified osteoarthritis, unspecified site; Z87.01 Personal history of pneumonia (recurrent); Z87.891 Personal history of nicotine dependence; Z82.5 Family history of asthma and other chronic lower respiratory diseases; K74.60 Unspecified cirrhosis of liver; N40.0 Benign prostatic hyperplasia without lower urinary tract symptoms; N18.30 Chronic kidney disease, stage 3 unspecified; F32.9 Major depressive disorder, single episode, unspecified; F41.9 Anxiety disorder, unspecified; T42.4X5A Adverse effect of benzodiazepines, initial encounter; R19.7 Diarrhea, unspecified; T36.0X5A Adverse effect of penicillins, initial encounter; Y92.239 Unspecified place in hospital as the place of occurrence of the external cause; Z86.73 Personal history of transient ischemic attack (TIA), and cerebral infarction without residual deficits; E11.22 Type 2 diabetes mellitus with diabetic chronic kidney disease; Z79.52 Long term (current) use of systemic steroids; I48.91 Unspecified atrial fibrillation; M81.0 Age-related osteoporosis without current pathological fracture; Z79.83 Long term (current) use of bisphosphonates; Z79.899 Other long term (current) drug therapy; Z87.19 Personal history of other diseases of the digestive system; Z96.1 Presence of intraocular lens
CPT/HCPCS: 36415; 70553; 71046; 74176; 80048; 80053; 82140; 82565; 82947; 83735; 84145; 85025; 85049; 85610; 87045; 87046; 87324; 93005; 95819; 99285

== ENCOUNTER 2020-12-23 10:45 | Day surgery (SDC) | payer MEDICARE, OTHER ==
[2020-12-23 11:53] LABS: Platelet Count 88 k/uL (150-450)
[2020-12-23 11:55] LABS: INR 1.1 (<1.2); Prothrombin Time 11.4 sec (9.0-12.0)
[2020-12-23 12:24] VITALS: RESP 16; TEMP 98.3
[2020-12-23 13:07] VITALS: BP 149/77; PULSE 69
--- NOTE | 2020-12-24 08:56 | US ---
Ultrasound-guided paracentesis. DATE OF EXAM: 12/23/2020 CLINICAL HISTORY: Ascites The procedure was discussed with the patient. The risks, complications, benefits, and alternatives we re discussed and any questions were answered. Informed consent was obtained. The patient was placed s upine on the ultrasound table and prepped and draped in the usual sterile fashion. All elements of maximal barrier technique were utilized. Under ultrasound guidance, access into the right lower quadrant was obtained, via the paracentesis catheter system and direct ultrasound guidanc e. Approximately 3.1 liters of straw-colored fluid was removed. The patient was stable throughout the pr ocedure and remained stable upon discharge from Department of Radiology. IMPRESSION: Successful paracentesis under ultrasound guidance.
== END 2020-12-23 13:09 | disposition home or self-care (01) ==
LOC: RADPROMAIN 10:45
PROVIDERS: ATTEND Internal Medicine
DX: R18.8 Other ascites (principal)
CPT/HCPCS: 36415; 49083; 82565; 82947; 85049; 85610

== ENCOUNTER → 2020-12-30 | Outpatient (CLI) | payer MEDICARE, OTHER | END | disposition home or self-care (01) | CPT/HCPCS: 74220 ==

== ENCOUNTER 2021-01-06 08:41 | Day surgery (SDC) | payer MEDICARE, OTHER ==
[2021-01-06] MEDS ORDERED: ALBUMIN HUMAN 25% 50 ML in EMPTY BAG 1 BAG IVPB SCH (09:00)
[2021-01-06 09:20] LABS: Platelet Count 73 k/uL (150-450)
[2021-01-06 09:26] VITALS: TEMP 98.3
[2021-01-06 09:31] LABS: Prothrombin Time 10.9 sec (9.0-12.0)
[2021-01-06 10:30] VITALS: PULSE 65
[2021-01-06 11:01] VITALS: RESP 16
[2021-01-06 11:37] VITALS: BP 156/72
--- NOTE | 2021-01-06 13:20 | US ---
EXAMINATION TYPE: US paracentesis abd w/image DATE OF EXAM: 01/06/2021 CLINICAL HISTORY: Cirrhosis of liver COMPARISON: 12/15/[address] RAILWAY LINE INSTALLER: Dr. Sally Abdalla PROCEDURE: Preprocedure preliminary ultrasound imaging demonstrates large volume ascites. The procedure was discussed with the patient. The risks, complications, benefits, and alternatives we re discussed and any questions were answered. Informed consent was obtained. The patient was placed s upine on the ultrasound table and prepped and draped in the usual sterile fashion. All elements of maximal barrier technique were utilized. Under ultrasound guidance, access into the left lower quadrant was obtained with a 5 Divehi one-step centesis catheter. Approximately 3.6 liters of clear serous fluid was removed. Catheter was removed and sterile bandage was applied. The patient was stable throughout the procedure and remained stable upon discharge from Department of Radiology. IMPRESSION: Successful ultrasound-guided paracentesis, with removal of 3.6 liters of clear serous fluid.
== END 2021-01-06 11:20 | disposition home or self-care (01) ==
LOC: RADPROMAIN 08:41
PROVIDERS: ATTEND Internal Medicine
DX: R18.8 Other ascites (principal)
CPT/HCPCS: 36415; 49083; 82565; 82947; 85049; 85610

== ENCOUNTER → 2021-01-07 | Outpatient (CLI) | payer MEDICARE, OTHER ==
[~2021-01-07] MED LIST changes: -ALBUMIN HUMAN 25% 50 ML in EMPTY BAG 1 BAG IVPB SCH; +ALBUTEROL NEBULIZED 2.5 MG/3 ML INHALATION ONE; +[UNRECOGNIZED DRUG - OTHER] INHALATION ONE
[2021-01-07 14:01] VITALS: PULSE 64
== END ==
LOC: CPPFTMAIN 12:46
PROVIDERS: ATTEND Internal Medicine
DX: Z94.2 Lung transplant status (principal); Z88.1 Allergy status to other antibiotic agents; Z91.018 Allergy to other foods; Z88.6 Allergy status to analgesic agent; Z87.891 Personal history of nicotine dependence
CPT/HCPCS: 94640

== ENCOUNTER 2021-01-16 10:18 | Day surgery (SDC) | payer MEDICARE, OTHER ==
[2021-01-16 10:52] VITALS: TEMP 98.1
[2021-01-16] MEDS ORDERED: LACTATED RINGERS 1,000 ML IV ONE (10:57)
[2021-01-16 11:01] LABS: Glucose,Whole Blood 155 mg/dL (75-99)
[2021-01-16] MEDS ORDERED: PROPOFOL 10 MG/ML 20 ML VIAL IV ONE (11:26)
[2021-01-16] MEDS ORDERED: LIDOCAINE 1% INJ 10MG/ML (20 ML MDV) ONE (11:26)
--- NOTE | 2021-01-16 11:48 | P.PCN ---
Date of Procedure: 01/16/21 Description of Procedure: BRIEF HISTORY: Patient is a 70-year-old male presenting for outpatient esophagus or a duodenoscopy evaluation of other dysphagia, esophageal dysphagia and services of liver. Patient has multiple medical comorbidities including prior double lung transplant at [facility]. Recently he has been treated for decompensated cirrhosis of the liver requiring repeated large-volume paracentesis. He is having some symptoms of esophageal dysphagia. PROCEDURE PERFORMED: Esophagogastroduodenoscopy with biopsy. PREOPERATIVE DIAGNOSIS: Other dysphagia, esophageal dysphagia, cirrhosis. ESTIMATED BLOOD LOSS: Minimal. IV sedation per anesthesia. PROCEDURE: After informed consent was obtained, the patient was brought into the endoscopy unit. IV sedation was administered by Anesthesia under continuous monitoring. Initially the Olympus GIF-190 video endoscope was inserted into the mouth. Esophagus intubated without any difficulty. It was gradually advanced into the stomach and duodenum and carefully examined. The bulb and the second part of the duodenum appeared normal, with biopsies taken. The scope at this time was withdrawn to the stomach, adequately insufflated with air, and upon careful examination, mucosa of the antrum, body, cardia and the fundus appeared normal, except for some mild scattered erythema in the antrum and body suggestive of mild gastritis with biopsies taken. The scope was then withdrawn into the esophagus. The GE junction was located at 37 cm from the incisors. The esophagus appeared normal, with biopsies of the lower and mid esophagus taken. There were no erosions or varices or ulcerations seen and the patient tolerated the procedure well. IMPRESSION: 1. Mild gastritis. 2. Biopsies of the duodenum, antrum and body, lower esophagus and midesophagus. RECOMMENDATIONS: The findings of this examination were discussed with the patient and his partner. Okay to resume diet. Okay to resume medications. Await pathology from biopsies. Follow up in the gastroenterology clinic as scheduled. Follow up with [facility] scheduled. Recommend repeat EGD in 2 years for variceal screening.
[2021-01-16 12:04] VITALS: BP 164/79; PULSE 71; RESP 16
== END 2021-01-16 12:31 | disposition home or self-care (01) ==
LOC: ORWHC2ENDO 10:18
PROVIDERS: ATTEND Internal Medicine
DX: K29.80 Duodenitis without bleeding (principal); K21.9 Gastro-esophageal reflux disease without esophagitis; K29.50 Unspecified chronic gastritis without bleeding; Z94.2 Lung transplant status; I25.10 Atherosclerotic heart disease of native coronary artery without angina pectoris; I25.2 Old myocardial infarction; R56.9 Unspecified convulsions; M19.90 Unspecified osteoarthritis, unspecified site; Z97.2 Presence of dental prosthetic device (complete) (partial); Z85.89 Personal history of malignant neoplasm of other organs and systems
CPT/HCPCS: 88305; 88342; 43239; J2001; J2704

== ENCOUNTER 2021-01-20 08:38 | Day surgery (SDC) | payer MEDICARE, OTHER ==
[2021-01-20] MEDS ORDERED: ALBUMIN HUMAN 25% 50 ML in EMPTY BAG 1 BAG IVPB SCH (08:45)
[2021-01-20 09:08] LABS: Mean Platelet Volume 9.6
[2021-01-20 09:11] VITALS: TEMP 98.3
[2021-01-20 09:14] LABS: Platelet Count 79 k/uL (150-450)
[2021-01-20 09:33] LABS: INR 1.1 (<1.2); Prothrombin Time 11.1 sec (9.0-12.0)
[2021-01-20 10:46] VITALS: BP 140/70; PULSE 73; RESP 16
--- NOTE | 2021-01-20 14:36 | US ---
Ultrasound-guided paracentesis. DATE OF EXAM: 01/20/2021 CLINICAL HISTORY: Ascites The procedure was discussed with the patient. The risks, complications, benefits, and alternatives we re discussed and any questions were answered. Informed consent was obtained. The patient was placed s upine on the ultrasound table and prepped and draped in the usual sterile fashion. All elements of maximal barrier technique were utilized. Under ultrasound guidance, access into the right lower quadrant was obtained, via the paracentesis catheter system and direct ultrasound guidanc e. Approximately 3.1 liters of straw-colored fluid was removed. The patient was stable throughout the pr ocedure and remained stable upon discharge from Department of Radiology. IMPRESSION: Successful paracentesis under ultrasound guidance.
== END 2021-01-20 10:56 | disposition home or self-care (01) ==
LOC: RADPROMAIN 08:38
PROVIDERS: ATTEND Internal Medicine
DX: R18.8 Other ascites (principal)
CPT/HCPCS: 36415; 49083; 82565; 82947; 85049; 85610

== ENCOUNTER → 2021-01-22 | Outpatient (CLI) | payer MEDICARE, OTHER | END | disposition home or self-care (01) | LOC: LABWHC1 12:03 | PROVIDERS: ATTEND Internal Medicine | DX: K74.60 Unspecified cirrhosis of liver (principal) | CPT/HCPCS: 36415; 82140 ==

== ENCOUNTER 2021-02-03 12:42 | Day surgery (SDC) | payer MEDICARE, OTHER ==
[2021-02-03 13:18] VITALS: TEMP 97.8
[2021-02-03 13:24] LABS: Mean Platelet Volume 8.4
[2021-02-03 13:31] LABS: Platelet Count 76 k/uL (150-450)
[2021-02-03 13:39] LABS: INR 1.1 (<1.2); Prothrombin Time 11.3 sec (9.0-12.0)
[2021-02-03 15:13] VITALS: BP 151/75; PULSE 70; RESP 17
[2021-02-03] MEDS: ALBUMIN HUMAN 25% 50 ML in EMPTY BAG 1 BAG IVPB SCH ×2 (15:13→15:14)
--- NOTE | 2021-02-03 15:48 | US ---
Ultrasound-guided paracentesis. DATE OF EXAM: 02/03/2021 CLINICAL HISTORY: Ascites The procedure was discussed with the patient. The risks, complications, benefits, and alternatives we re discussed and any questions were answered. Informed consent was obtained. The patient was placed s upine on the ultrasound table and prepped and draped in the usual sterile fashion. All elements of maximal barrier technique were utilized. Under ultrasound guidance, access into the right lower quadrant was obtained, via the paracentesis catheter system and direct ultrasound guidanc e. Approximately 1.7 liters of straw-colored fluid was removed. The patient was stable throughout the pr ocedure and remained stable upon discharge from Department of Radiology. IMPRESSION: Successful paracentesis under ultrasound guidance.
== END 2021-02-03 15:10 | disposition home or self-care (01) ==
LOC: RADPROMAIN 12:42
PROVIDERS: ATTEND Internal Medicine Gastroenterology
DX: R18.8 Other ascites (principal)
CPT/HCPCS: 36415; 49083; 82565; 82947; 85049; 85610

== ENCOUNTER → 2021-02-04 | Outpatient (CLI) | payer MEDICARE, OTHER ==
[2021-02-04 14:05] VITALS: PULSE 80
== END | disposition home or self-care (01) ==
LOC: CPPFTMAIN 12:51
PROVIDERS: ATTEND Internal Medicine
DX: Z94.2 Lung transplant status (principal)
CPT/HCPCS: 94640

== ENCOUNTER → 2021-02-04 | Outpatient (CLI) | payer MEDICARE, OTHER | END | disposition home or self-care (01) | LOC: LABWHC1 11:16 | PROVIDERS: ATTEND Psychiatry & Neurology Neurology | DX: G40.009 Localization-related (focal) (partial) idiopathic epilepsy and epileptic syndromes with seizures of localized onset, not intractable, without status epilepticus (principal); R41.3 Other amnesia | CPT/HCPCS: 36415; 80177; 82306; 82607; 84439; 84443 ==

== ENCOUNTER 2021-02-24 12:19 | Day surgery (SDC) | payer MEDICARE, OTHER ==
[2021-02-24 12:53] LABS: Mean Platelet Volume 8.8
[2021-02-24 12:57] LABS: Platelet Count 74 k/uL (150-450)
[2021-02-24 13:07] LABS: Prothrombin Time 10.9 sec (9.0-12.0)
[2021-02-24 13:17] VITALS: RESP 18; TEMP 98.1
[2021-02-24 14:54] VITALS: BP 142/76; PULSE 66
[2021-02-24] MEDS: ALBUMIN HUMAN 25% 50 ML in EMPTY BAG 1 BAG IVPB SCH (15:00)
--- NOTE | 2021-02-24 16:11 | US ---
EXAMINATION TYPE: US paracentesis abd w/image DATE OF EXAM: 02/24/2021 COMPARISON: NONE HISTORY: Ascites. PROCEDURE: Maximal barrier technique was utilized. The skin overlying a suitable pocket of fluid was localized with ultrasound and the overlying skin was prepped and draped. Ultrasound was utilized with sterile technique. Lidocaine was used for local anesthesia and a skin meri made with a scalpel. Catheter was advanced under direct ultrasound guidance into a suitable pocket of fluid and approximately 1.1 liter s of serous fluid were removed. Catheter was withdrawn and hemostasis achieved. There is no immedia te complication; the patient is discharged in stable condition. IMPRESSION: STATUS POST ULTRASOUND GUIDED PARACENTESIS FOR PALLIATION OF ASCITES. THIS PROCEDURE WA S PERFORMED BY THE UNDERSIGNED.
== END 2021-02-24 14:35 | disposition home or self-care (01) ==
LOC: RADPROMAIN 12:19
PROVIDERS: ATTEND Internal Medicine
DX: R18.8 Other ascites (principal)
CPT/HCPCS: 49083; 82565; 82947; 85049; 85610

== ENCOUNTER → 2021-03-11 | Outpatient (CLI) | payer MEDICARE, OTHER ==
[2021-03-11 14:01] VITALS: PULSE 102
== END ==
LOC: CPPFTMAIN 13:10
PROVIDERS: ATTEND Internal Medicine
DX: Z94.2 Lung transplant status (principal); Z88.1 Allergy status to other antibiotic agents; Z88.6 Allergy status to analgesic agent; Z91.018 Allergy to other foods; Z87.891 Personal history of nicotine dependence
CPT/HCPCS: 94640

== ENCOUNTER → 2021-04-01 | Outpatient (CLI) | payer MEDICARE, OTHER ==
[2021-04-01 16:22] LABS: T4, Free (Free Thyroxine) 1.28 ng/dL (0.800-1.800)
== END | disposition home or self-care (01) ==
LOC: LABWHC1 08:16
PROVIDERS: ATTEND Psychiatry & Neurology Neurology
DX: G40.009 Localization-related (focal) (partial) idiopathic epilepsy and epileptic syndromes with seizures of localized onset, not intractable, without status epilepticus (principal)
CPT/HCPCS: 36415; 80177; 82607; 84439; 84443

== ENCOUNTER → 2021-04-08 | Outpatient (CLI) | payer MEDICARE, OTHER ==
[2021-04-08 15:08] VITALS: PULSE 88
== END ==
LOC: CPPFTMAIN 12:55
PROVIDERS: ATTEND Internal Medicine
DX: Z94.2 Lung transplant status (principal); Z87.891 Personal history of nicotine dependence; Z88.1 Allergy status to other antibiotic agents; Z88.6 Allergy status to analgesic agent; Z91.018 Allergy to other foods
CPT/HCPCS: 94642

== ENCOUNTER 2021-04-28 12:31 | Day surgery (SDC) | payer MEDICARE, OTHER ==
[2021-04-28] MEDS ORDERED: ALBUMIN HUMAN 25% 50 ML in EMPTY BAG 1 BAG IVPB SCH (13:00)
[2021-04-28 13:37] LABS: Mean Platelet Volume 9.6
[2021-04-28 14:11] LABS: INR 1.1 (<1.2); Prothrombin Time 11.2 sec (9.0-12.0)
[2021-04-28 14:19] LABS: Platelet Count 76 k/uL (150-450)
[2021-04-28 14:42] VITALS: RESP 18; TEMP 97.9
[2021-04-28 15:15] VITALS: BP 154/72; PULSE 66
--- NOTE | 2021-04-28 15:59 | US ---
Ultrasound-guided paracentesis. DATE OF EXAM: 04/28/2021 CLINICAL HISTORY: Ascites The procedure was discussed with the patient. The risks, complications, benefits, and alternatives we re discussed and any questions were answered. Informed consent was obtained. The patient was placed s upine on the ultrasound table and prepped and draped in the usual sterile fashion. All elements of maximal barrier technique were utilized. Under ultrasound guidance, access into the right lower quadrant was obtained, via the paracentesis catheter system and direct ultrasound guidanc e. Approximately 1.8 liters of straw-colored fluid was removed. The patient was stable throughout the pr ocedure and remained stable upon discharge from Department of Radiology. IMPRESSION: Successful paracentesis under ultrasound guidance.
== END 2021-04-28 15:45 | disposition home or self-care (01) ==
LOC: RADPROMAIN 12:31
PROVIDERS: ATTEND Internal Medicine Gastroenterology
DX: R18.8 Other ascites (principal)
CPT/HCPCS: 36415; 49083; 82565; 82947; 85049; 85610

== ENCOUNTER → 2021-05-06 | Outpatient (CLI) | payer MEDICARE, OTHER ==
[2021-05-06 14:07] VITALS: PULSE 70
== END ==
LOC: CPPFTMAIN 13:25
PROVIDERS: ATTEND Internal Medicine
DX: Z94.2 Lung transplant status (principal); Z87.891 Personal history of nicotine dependence; Z88.1 Allergy status to other antibiotic agents; Z88.6 Allergy status to analgesic agent; Z91.018 Allergy to other foods
CPT/HCPCS: 94640; 94642

== ENCOUNTER 2021-06-09 12:57 | Day surgery (SDC) | payer MEDICARE, OTHER ==
[2021-06-09 13:34] VITALS: TEMP 98
[2021-06-09 13:41] LABS: Mean Platelet Volume 8.8
[2021-06-09 13:43] LABS: Platelet Count 90 k/uL (150-450)
[2021-06-09 13:45] LABS: INR 1.1 (<1.2); Prothrombin Time 11.9 sec (9.0-12.0)
[2021-06-09 14:25] VITALS: RESP 18
[2021-06-09 15:12] VITALS: BP 134/60; PULSE 64
--- NOTE | 2021-06-09 15:47 | US ---
EXAMINATION TYPE: US paracentesis abd w/image DATE OF EXAM: 06/09/2021 COMPARISON: NONE HISTORY: Ascites. PROCEDURE: Maximal barrier technique was utilized. The skin overlying a suitable pocket of fluid was localized with ultrasound and the overlying skin was prepped and draped. Ultrasound was utilized with sterile technique. Lidocaine was used for local anesthesia and a skin meri made with a scalpel. Catheter was advanced under direct ultrasound guidance into a suitable pocket of fluid and approximately 2.6 liter s of serous fluid were removed. Catheter was withdrawn and hemostasis achieved. There is no immedia te complication; the patient is discharged in stable condition. IMPRESSION: STATUS POST ULTRASOUND GUIDED PARACENTESIS FOR PALLIATION OF ASCITES. THIS PROCEDURE WA S PERFORMED BY THE UNDERSIGNED.
== END 2021-06-09 15:30 | disposition home or self-care (01) ==
LOC: RADPROMAIN 12:57
PROVIDERS: ATTEND Internal Medicine Gastroenterology
DX: R18.8 Other ascites (principal)
CPT/HCPCS: 36415; 49083; 82565; 82947; 85049; 85610

== ENCOUNTER → 2021-06-10 | Outpatient (CLI) | payer MEDICARE, OTHER ==
[2021-06-10 14:19] VITALS: PULSE 70
== END ==
LOC: CPPFTMAIN 13:11
PROVIDERS: ATTEND Internal Medicine
DX: Z94.2 Lung transplant status (principal); Z87.891 Personal history of nicotine dependence; Z88.1 Allergy status to other antibiotic agents; Z91.018 Allergy to other foods; Z88.6 Allergy status to analgesic agent
CPT/HCPCS: 94640; 94642

== ENCOUNTER 2021-06-19 13:34 | Emergency (ER) | payer MEDICARE, OTHER ==
[2021-06-19 13:41] VITALS: TEMP 97.9
--- NOTE | 2021-06-19 14:51 | ED ---
General Adult HPI - General Chief complaint: Recheck/Abnormal Lab/Rx Stated complaint: lab recheck Time Seen by Provider: 06/19/21 14:09 Source: patient, family, RN notes reviewed Mode of arrival: wheelchair Limitations: physical limitation - History of Present Illness Initial comments: 70-year-old male presents to the emergency department for evaluation. Patient states he was seen by his lung transplant physician earlier today for a routine follow up visit resulting form a fall with rib injuries a few months ago. Provides paperwork with instructions to utilize incentive spirometry and start CellCept. States he had labs drawn prior to that visit then received a call after he left telling him he needed to go to the emergency Department due to an elevated BUN. Patient complains of generalized weakness. Denies any fever, chills, headache, dizziness, chest pain, abdominal pain, constipation, diarrhea, or dysuria. - Related Data Home Medications Medication Instructions Recorded Confirmed Alendronate Sodium [Fosamax] 70 mg PO WE 11/06/13 06/19/21 Ergocalciferol (Vitamin D2) 1,250 mcg PO Q15D 11/06/13 06/19/21 [Drisdol] Fludrocortisone [Florinef] 0.1 mg PO DAILY 11/06/13 06/19/21 Metoprolol Succinate (ER) [Toprol 100 mg PO DAILY 11/06/13 06/19/21 XL] Tacrolimus [Prograf] 2 mg PO BID 11/06/13 06/19/21 Multivitamins, Thera [Multivitamin 1 tab PO DAILY 07/23/16 06/19/21 (formulary)] Ferrous Sulfate [Iron (65 MG 325 mg PO DAILY 09/29/16 06/19/21 Elemental)] Allopurinol [Zyloprim] 100 mg PO BID 05/06/17 06/19/21 Metoclopramide [Reglan] 10 mg PO DAILY 05/06/17 06/19/21 Omeprazole [PriLOSEC] 40 mg PO BID 03/02/18 06/19/21 Sertraline [Zoloft] 50 mg PO DAILY 03/02/18 06/19/21 Tacrolimus [Prograf] 0.5 mg PO BID 08/16/19 06/19/21 Tamsulosin HCl [Flomax] 0.4 mg PO HS 08/16/19 06/19/21 Atorvastatin [Lipitor] 10 mg PO DAILY 05/30/20 06/19/21 Sodium Bicarbonate 650 mg PO BID 08/05/20 06/19/21 HYDROcodone/APAP 5-325MG [Commiskey 1 tab PO TID 08/15/20 06/19/21 5-325] Azithromycin [Zithromax] 250 mg PO MOWEFR 09/30/20 06/19/21 Magnesium Oxide [Mag-Ox] 400 mg PO BID 11/21/20 06/19/21 calcitrioL [Calcitriol] 0.25 mcg PO TUFR 11/21/20 06/19/21 Furosemide [Lasix] 40 mg PO BID@0900,1400 12/03/20 06/19/21 Ipratropium-Albuterol Nebulize 3 ml INHALATION RT-QID PRN 12/10/20 06/19/21 [Duoneb 0.5 mg-3 mg/3 ml Soln] Lactulose [Cephulac] 20 gm PO DAILY 04/28/21 06/19/21 amLODIPine [Norvasc] 5 mg PO DAILY 04/28/21 06/19/21 Ammonium Lactate Cream [Lac-Hydrin 1 applic TOPICAL BID 06/03/21 06/19/21 12% Cream] Ketoconazole [Ketoconazole 2% 1 applic TOPICAL MOWEFR 06/03/21 06/19/21 Shampoo] Furosemide [Lasix] 40 mg PO DAILY@0900 PRN 06/19/21 06/19/21 Gammagard 35,000 mg IV Q30D 06/19/21 06/19/21 Insulin Detemir [Levemir Flextouch 40 units SQ DAILY 06/19/21 06/19/21 Pen] Lactulose 20 gm PO DAILY@1400 PRN 06/19/21 06/19/21 Lisinopril [Prinivil] 10 mg PO BID 06/19/21 06/19/21 Pentamidine 300mg Inhalation 300 mg INHALATION Q28D 06/19/21 06/19/21 Solution levETIRAcetam [Keppra] 500 mg PO BID 06/19/21 06/19/21 predniSONE 5 mg PO W/BRKFST 06/19/21 06/19/21 Allergies Allergy/AdvReac Type Severity Reaction Status Date / Time clarithromycin [From Biaxin] AdvReac instructed Verified 06/19/21 16:46 not to take r/t lung transplant grapefruit AdvReac Unknowninstructed Verified 06/19/21 16:46 not to take r/t lung transplant ibuprofen [From Motrin] AdvReac instructed Verified 06/19/21 16:46 not to take r/t lung transplant orange juice AdvReac instructed Verified 06/19/21 16:46 not to take r/t lung transplant Review of Systems ROS Statement: Those systems with pertinent positive or pertinent negative responses have been documented in the HPI. ROS Other: All systems not noted in ROS Statement are negative. Past Medical History Past Medical History: Cancer, Heart Failure, COPD, Diabetes Mellitus, GERD/Reflux, GI Bleed, Hyperlipidemia, Hypertension, Liver Disease, Osteoarthritis (OA), Pneumonia, Prostate Disorder, Renal Disease, Respiratory Disorder Additional Past Medical History / Comment(s): recent fall and 9th rib fracture, hyperkalemia/acute kidney injury/ascities/transaminitis. Other hx; 2009 bilateral lung transplants, pt has had pne since transplant and prior to transplant had copd/pneumonia/pulmonary , skin cancer removed from nose, fibrosis/bronchitis/past chronic respiratory failure, chronic abdominal pain, liver cirrhosis, ascities with frequent paracentesis, lower GI bleed, diverticular disease, IDDM type II neuropathy bilateral hands/feet, CKD stage III, hypogammaglobulinemia with IVIG infusions, gout, diverticular disease, benign colon polyp, R abdominal hernia, BPH with surgery, chronic back pain, DDD History of Any Multi-Drug Resistant Organisms: None Reported Past Surgical History: Heart Catheterization, Hernia Repair Additional Past Surgical History / Comment(s): 2009 bilateral lung transplants at [facility], umbilical/bilateral inguinal hernia repairs and a femoral hernia repair, TURP, colonoscopy with benign polypectomy, bilateral cataract removals/lens implants, multiple large volume paracentesis procedures, skin cancer removed from nose Past Anesthesia/Blood Transfusion Reactions: No Reported Reaction Past Psychological History: Anxiety, Depression Smoking Status: Former smoker Past Alcohol Use History: None Reported Past Drug Use History: None Reported - Past Family History Mother Family Medical History: Asthma, COPD Additional Family Medical History / Comment(s): Mother at age 73 from asthma or COPD. Father Family Medical History: Asthma, Pneumonia Additional Family Medical History / Comment(s): Father at age 68 from asthma. Brother(s) Additional Family Medical History / Comment(s): Patient states he has 6 brothers and 5 sisters and is not sure of their medical history. Some have passed. Jayde ent has one daughter with no major medical problems. General Exam Limitations: physical limitation General appearance: alert, in no apparent distress, other (This is a well- developed male who presents to the emergency department with an initial temperature of 97.9, pulse 64, respirations 20, blood pressure 151/81, pulse ox 99% on room air.) Eye exam: Present: normal appearance, PERRL, EOMI. Absent: scleral icterus, conjunctival injection, periorbital swelling ENT exam: Present: mucous membranes dry Respiratory exam: Present: normal lung sounds bilaterally, chest wall tenderness (Right posterior chest wall tenderness upon palpation. Patient states this is the area of rib injury and is still sore.). Absent: respiratory distress, wheezes, rales, rhonchi, stridor GI/Abdominal exam: Present: soft, distended, normal bowel sounds. Absent: tenderness, guarding, rebound, rigid Extremities exam: Present: normal inspection, full ROM, normal capillary refill. Absent: tenderness, pedal edema, joint swelling, calf tenderness Back exam: Absent: CVA tenderness (R), CVA tenderness (L) Neurological exam: Present: alert, oriented X3, CN II-XII intact Psychiatric exam: Present: normal affect, normal mood Skin exam: Present: warm, dry, intact, normal color. Absent: rash Course Vital Signs 06/19/21 06/19/21 06/19/21 13:36 14:30 15:30 Temperature 97.9 F Pulse Rate 64 61 60 Respiratory 20 16 16 Rate Blood Pressure 151/81 141/74 143/74 O2 Sat by Pulse 99 100 96 Oximetry 06/19/21 06/19/21 16:00 19:07 Temperature Pulse Rate 59 L 66 Respiratory 18 88 H Rate Blood Pressure 122/68 145/79 O2 Sat by Pulse 97 97 Oximetry Medical Decision Making - Medical Decision Making 70-year-old male with a history of a double lung transplant, recent rib injury, and renal disease presents to the emergency department for evaluation of elevated BUN. Upon arrival, patient is resting comfortably and in no acute distress. Vital signs are stable. Patient is able to urinate without difficulty. Chest x-ray shows evidence of COPD; patient was seen by transplant provider earlier today who recommended incentive spirometry twice daily and made some minor medication adjustments. Laboratory studies were obtained and reviewed. Hemoglobin 11.4 is unchanged for patient. He is mildly dehydrated and has a BUN of 105 and creatinine 1.61. Liver enzymes are mildly elevated but stable for patient. Urinalysis shows large occult site esterase, 15 urine RBCs, many urine WBCs and clumps. These results were reviewed with the waiter/waitress take out, Dr. Alvarenga. Discussed patient's current home medication regimen. He felt that due to the disproportionate rise in BUN compared to creatinine that this is likely prerenal. Per his instructions, patient is instructed to hold his Lasix, but continue all his other home medications as prescribed. Reviewed importance of adequate hydration and patient was given IV fluids. Additional antibiotic therapy not merited as patient is currently on Zithromax and has been on additional oral antibiotics recently per his home medication list. Patient is instructed to call the nephrology office Wednesday the when they [facility] a follow up. Strict return parameters were discussed with patient and spouse. Questions answered, they verbalize understanding and agree with this plan. This patient's care was discussed with my attending Dr. Saini. - Lab Data Result diagrams: 06/19/21 14:51 06/19/21 14:51 Lab Results 06/19/21 06/19/21 06/19/21 Range/Units 14:51 14:51 14:51 WBC 6.2 (3.8-10.6) k/uL RBC 3.44 L (4.30-5.90) m/uL Hgb 11.4 L (13.0-17.5) gm/dL Hct 34.7 L (39.0-53.0) % MCV 100.8 H (80.0-100.0) fL MCH 33.1 (25.0-35.0) pg MCHC 32.9 (31.0-37.0) g/dL RDW 16.3 H (11.5-15.5) % Plt Count 70 L (150-450) k/uL MPV 8.9 Neutrophils % 83 % Lymphocytes % 7 % Monocytes % 8 % Eosinophils % 1 % Basophils % 0 % Neutrophils # 5.1 (1.3-7.7) k/uL Lymphocytes # 0.4 L (1.0-4.8) k/uL Monocytes # 0.5 (0-1.0) k/uL Eosinophils # 0.1 (0-0.7) k/uL Basophils # 0.0 (0-0.2) k/uL Anisocytosis Slight Macrocytosis Slight PT 11.3 (9.0-12.0) sec INR 1.1 (<1.2) APTT 25.7 (22.0-30.0) sec Sodium 133 L (137-145) mmol/L Potassium 4.3 (3.5-5.1) mmol/L Chloride 96 L (98-107) mmol/L Carbon Dioxide 25 (22-30) mmol/L Anion Gap 12 mmol/L BUN 105 H* (9-20) mg/dL Creatinine 1.61 H (0.66-1.25) mg/dL Est GFR (CKD-EPI)AfAm 49 (>60 ml/min/1.73 sqM) Est GFR (CKD-EPI)NonAf 42 (>60 ml/min/1.73 sqM) Glucose 162 H (74-99) mg/dL Plasma Lactic Acid Jaden (0.7-2.0) mmol/L Calcium 8.6 (8.4-10.2) mg/dL Phosphorus 4.2 (2.5-4.5) mg/dL Magnesium 2.2 (1.6-2.3) mg/dL Total Bilirubin 0.5 (0.2-1.3) mg/dL AST 60 H (17-59) U/L ALT 52 H (4-49) U/L Alkaline Phosphatase 168 H (38-126) U/L Troponin I (0.000-0.034) ng/mL Total Protein 6.6 (6.3-8.2) g/dL Albumin 3.5 (3.5-5.0) g/dL Urine Color Urine Appearance (Clear) Urine pH (5.0-8.0) Ur Specific Callaway (1.001-1.035) Urine Protein (Negative) Urine Glucose (UA) (Negative) Urine Ketones (Negative) Urine Blood (Negative) Urine Nitrite (Negative) Urine Bilirubin (Negative) Urine Urobilinogen (<2.0) mg/dL Ur Leukocyte Esterase (Negative) Urine RBC (0-5) /hpf Urine WBC (0-5) /hpf Urine WBC Clumps (None) /hpf Urine Bacteria (None) /hpf Urine Mucus (None) /hpf 06/19/21 06/19/21 06/19/21 Range/Units 14:51 14:51 15:14 WBC (3.8-10.6) k/uL RBC (4.30-5.90) m/uL Hgb (13.0-17.5) gm/dL Hct (39.0-53.0) % MCV (80.0-100.0) fL MCH (25.0-35.0) pg MCHC (31.0-37.0) g/dL RDW (11.5-15.5) % Plt Count (150-450) k/uL MPV Neutrophils % % Lymphocytes % % Monocytes % % Eosinophils % % Basophils % % Neutrophils # (1.3-7.7) k/uL Lymphocytes # (1.0-4.8) k/uL Monocytes # (0-1.0) k/uL Eosinophils # (0-0.7) k/uL Basophils # (0-0.2) k/uL Anisocytosis Macrocytosis PT (9.0-12.0) sec INR (<1.2) APTT (22.0-30.0) sec Sodium (137-145) mmol/L Potassium (3.5-5.1) mmol/L Chloride (98-107) mmol/L Carbon Dioxide (22-30) mmol/L Anion Gap mmol/L BUN (9-20) mg/dL Creatinine (0.66-1.25) mg/dL Est GFR (CKD-EPI)AfAm (>60 ml/min/1.73 sqM) Est GFR (CKD-EPI)NonAf (>60 ml/min/1.73 sqM) Glucose (74-99) mg/dL Plasma Lactic Acid Jaden 1.7 (0.7-2.0) mmol/L Calcium (8.4-10.2) mg/dL Phosphorus (2.5-4.5) mg/dL Magnesium (1.6-2.3) mg/dL Total Bilirubin (0.2-1.3) mg/dL AST (17-59) U/L ALT (4-49) U/L Alkaline Phosphatase (38-126) U/L Troponin I <0.012 (0.000-0.034) ng/mL Total Protein (6.3-8.2) g/dL Albumin (3.5-5.0) g/dL Urine Color Yellow Urine Appearance Turbid (Clear) Urine pH 5.5 (5.0-8.0) Ur Specific [place] 1.014 (1.001-1.035) Urine Protein Trace H (Negative) Urine Glucose (UA) Negative (Negative) Urine Ketones Negative (Negative) Urine Blood Small H (Negative) Urine Nitrite Negative (Negative) Urine Bilirubin Negative (Negative) Urine Urobilinogen <2.0 (<2.0) mg/dL Ur Leukocyte Esterase Large H (Negative) Urine RBC 15 H (0-5) /hpf Urine WBC >182 H (0-5) /hpf Urine WBC Clumps Many H (None) /hpf Urine Bacteria Rare H (None) /hpf Urine Mucus Rare H (None) /hpf - EKG Data EKG shows normal: sinus rhythm Rate: normal EKG Comments: EKG was obtained at 1358 and shows normal sinus rhythm with right bundle branch block and left anterior fascicular block. Ventricular rate 66, DC intervals 176, QRS duration 180, QT/QTc 474/496. Interpretation is abnormal ECG. - Radiology Data Radiology results: report reviewed, image reviewed Chest X-ray was obtained. Report was reviewed in its entirety. Impression per Dr. Nunez is COPD. Correlate for interstitial lung disease. Interstitial pneumonitis or mild venous congestion in the differential diagnosis. Correlate clinically. Disposition Clinical Impression: Chronic renal disease, Urinary tract infection Disposition: HOME SELF-CARE Condition: Stable Instructions (If sedation given, give patient instructions): Dehydration (ED), Chronic Kidney Disease (ED) Additional Instructions: Increase fluids. Hydration is very important. Please call Dr. Nesbitt's office on June 30 to schedule a follow-up appointment. Stop taking your Lasix/furosemide until you see Dr. Nesbitt in the office. Continue taking all your other home medications as prescribed. Return to the emergency department with any new, worsening, or concerning symptoms. Is patient prescribed a controlled substance at d/c from ED?: No Referrals: Louie Alaniz MD [Primary Care Provider] - 1-2 days Time of Disposition: 19:11
[2021-06-19 15:15] LABS: Anisocytosis Slight; Basophils % (A) 0 %; Eosinophils # (A) 0.1 k/uL (0-0.7); Eosinophils % (A) 1 %; HCT 34.7 % (39.0-53.0); HGB 11.4 gm/dL (13.0-17.5); Lymphocytes # (A) 0.4 k/uL (1.0-4.8); Lymphocytes % (A) 7 %; MCH 33.1 pg (25.0-35.0); MCHC 32.9 g/dL (31.0-37.0); MCV 100.8 fL (80.0-100.0); Macrocytosis Slight; Mean Platelet Volume 8.9; Monocytes # (A) 0.5 k/uL (0-1.0); Monocytes % (A) 8 %; Neutrophils # (A) 5.1 k/uL (1.3-7.7); Neutrophils % (A) 83 %; RBC 3.44 m/uL (4.30-5.90); RDW 16.3 % (11.5-15.5); WBC 6.2 k/uL (3.8-10.6)
[2021-06-19 15:16] LABS: Platelet Count 70 k/uL (150-450)
--- NOTE | 2021-06-19 15:19 | XR ---
EXAMINATION TYPE: XR chest 2V DATE OF EXAM: 06/19/2021 COMPARISON: 12/10/2020 TECHNIQUE: PA and lateral views submitted. HISTORY: Weakness FINDINGS: Heart is enlarged and there is atherosclerotic change aorta. Interstitial pattern seen. Pleural-based thickening involving the right lung noted with no pneumothorax. Tiny right pleural effusion. Hypertr ophic and degenerative change of the spine. IMPRESSION: 1. COPD correlate for interstitial chronic lung disease. Interstitial pneumonitis or mild venous marianna estion in the differential diagnosis correlate clinically.
[2021-06-19 15:24] LABS: Albumin 3.5 g/dL (3.5-5.0); Calcium 8.6 mg/dL (8.4-10.2); Magnesium 2.2 mg/dL (1.6-2.3); Phosphorus 4.2 mg/dL (2.5-4.5); Potassium 4.3 mmol/L (3.5-5.1); Total Bilirubin 0.5 mg/dL (0.2-1.3); Total Protein 6.6 g/dL (6.3-8.2)
[2021-06-19 15:27] LABS: INR 1.1 (<1.2); Partial Thromboplastin Time 25.7 sec (22.0-30.0); Prothrombin Time 11.3 sec (9.0-12.0)
[2021-06-19 15:31] LABS: Appearance,Urine Turbid (Clear); Bacteria,Urine Rare /hpf; Bilirubin,Urine Negative (Negative); Blood,Urine Small (Negative); Color,Urine Yellow; Glucose,Urine (UA) Negative (Negative); Ketones,Urine Negative (Negative); Leukocyte Esterase,Urine Large (Negative); Mucus,Urine Rare /hpf; Nitrite,Urine Negative (Negative); PH, Urine 5.5 (5.0-8.0); Protein,Urine Trace (Negative); RBC,Urine 15 /hpf (0-5); Specific Gravity,Urine 1.014 (1.001-1.035); Urobilinogen,Urine <2.0 mg/dL (<2.0); WBC,Urine >182 /hpf (0-5)
[2021-06-19] MEDS ORDERED: SODIUM CHLORIDE 0.9% 500 ML 500 ML IV STA (18:39)
[2021-06-19 19:08] VITALS: BP 145/79; PULSE 66; RESP 88
== END 2021-06-19 19:20 | disposition home or self-care (01) ==
LOC: EC 13:34
DX: N39.0 Urinary tract infection, site not specified (principal); E11.22 Type 2 diabetes mellitus with diabetic chronic kidney disease; E11.40 Type 2 diabetes mellitus with diabetic neuropathy, unspecified; N18.30 Chronic kidney disease, stage 3 unspecified; I13.0 Hypertensive heart and chronic kidney disease with heart failure and stage 1 through stage 4 chronic kidney disease, or unspecified chronic kidney disease; I50.9 Heart failure, unspecified; J44.9 Chronic obstructive pulmonary disease, unspecified; K21.9 Gastro-esophageal reflux disease without esophagitis; E78.5 Hyperlipidemia, unspecified; M19.90 Unspecified osteoarthritis, unspecified site; F32.A Depression, unspecified; F41.9 Anxiety disorder, unspecified; Z87.891 Personal history of nicotine dependence; Z79.52 Long term (current) use of systemic steroids; Z79.4 Long term (current) use of insulin; Z79.899 Other long term (current) drug therapy
CPT/HCPCS: 36415; 71046; 80053; 81001; 83605; 83735; 84100; 84484; 85025; 85610; 85730; 87086; 93005; 99285

== ENCOUNTER → 2021-07-15 | Outpatient (CLI) | payer MEDICARE, OTHER ==
[2021-07-15 13:58] VITALS: PULSE 80
[2021-07-15 13:59] VITALS: RESP 18
== END ==
LOC: CPPFTMAIN 13:11
PROVIDERS: ATTEND Internal Medicine
DX: Z94.2 Lung transplant status (principal); Z91.018 Allergy to other foods; Z88.1 Allergy status to other antibiotic agents; Z88.6 Allergy status to analgesic agent; Z87.891 Personal history of nicotine dependence
CPT/HCPCS: 94640

== ENCOUNTER 2021-08-11 12:15 | Day surgery (SDC) | payer MEDICARE, OTHER ==
[2021-08-11 12:42] VITALS: TEMP 98.4
[2021-08-11 12:46] LABS: Mean Platelet Volume 8.6
[2021-08-11 12:49] LABS: Platelet Count 93 k/uL (150-450)
[2021-08-11] MEDS: ALBUMIN HUMAN 25% 50 ML in EMPTY BAG 1 BAG IVPB SCH ×3 (13:52→14:16)
[2021-08-11 14:36] VITALS: RESP 14
[2021-08-11 14:55] VITALS: BP 121/61; PULSE 68
--- NOTE | 2021-08-11 15:19 | US ---
Ultrasound-guided paracentesis. DATE OF EXAM: 08/11/2021 CLINICAL HISTORY: Ascites The procedure was discussed with the patient. The risks, complications, benefits, and alternatives we re discussed and any questions were answered. Informed consent was obtained. The patient was placed s upine on the ultrasound table and prepped and draped in the usual sterile fashion. All elements of maximal barrier technique were utilized. Under ultrasound guidance, access into the left lower quadrant was obtained, via the paracentesis catheter system and direct ultrasound guidance . Approximately 5.4 liters of straw-colored fluid was removed. The patient was stable throughout the pr ocedure and remained stable upon discharge from Department of Radiology. IMPRESSION: Successful paracentesis under ultrasound guidance.
== END 2021-08-11 14:50 | disposition home or self-care (01) ==
LOC: RADPROMAIN 12:15
PROVIDERS: ATTEND Internal Medicine Gastroenterology
DX: R18.8 Other ascites (principal)
CPT/HCPCS: 49083; 82565; 82947; 85049; 85610; 36415; P9047

== ENCOUNTER 2021-08-13 14:40 | Emergency (ER) | payer MEDICARE, OTHER ==
[2021-08-13 15:31] VITALS: TEMP 97.7
[2021-08-13] MEDS ORDERED: ONDANSETRON 4 MG/2 ML VIAL IVP STA (16:17)
[2021-08-13] MEDS ORDERED: HYDROmorphone 1 MG/ML 1 ML SYRINGE IVP STA (16:17)
[2021-08-13 16:46] LABS: Anisocytosis Slight; Basophils % (A) 0 %; Eosinophils # (A) 0.1 k/uL (0-0.7); Eosinophils % (A) 2 %; HCT 34.9 % (39.0-53.0); HGB 11.3 gm/dL (13.0-17.5); Lymphocytes # (A) 0.4 k/uL (1.0-4.8); Lymphocytes % (A) 6 %; MCH 32.8 pg (25.0-35.0); MCHC 32.5 g/dL (31.0-37.0); MCV 100.9 fL (80.0-100.0); Macrocytosis Slight; Mean Platelet Volume 8.9; Monocytes # (A) 0.5 k/uL (0-1.0); Monocytes % (A) 7 %; Neutrophils # (A) 6.2 k/uL (1.3-7.7); Neutrophils % (A) 84 %; RBC 3.46 m/uL (4.30-5.90); RDW 16.6 % (11.5-15.5); WBC 7.4 k/uL (3.8-10.6)
[2021-08-13 16:47] LABS: Platelet Count 94 k/uL (150-450)
[2021-08-13 16:48] LABS: Appearance,Urine Clear (Clear); Bilirubin,Urine Negative (Negative); Blood,Urine Trace (Negative); Color,Urine Yellow; Glucose,Urine (UA) Negative (Negative); Hyaline Casts,Urine 9 /lpf (0-2); Ketones,Urine Negative (Negative); Leukocyte Esterase,Urine Large (Negative); Mucus,Urine Rare /hpf; Nitrite,Urine Negative (Negative); PH, Urine 5.5 (5.0-8.0); Protein,Urine 1+ (Negative); RBC,Urine 5 /hpf (0-5); Specific Gravity,Urine 1.012 (1.001-1.035); Urobilinogen,Urine <2.0 mg/dL (<2.0); WBC,Urine 76 /hpf (0-5)
--- NOTE | 2021-08-13 16:48 | ED ---
Abdominal Pain HPI - General Source: patient, family, RN notes reviewed Mode of arrival: wheelchair Limitations: no limitations - History of Present Illness MD Complaint: abdominal pain <Santino Avila - Last Filed: 08/14/21 00:37> <Leena Saini - Last Filed: 08/15/21 22:48> - General Chief Complaint: Abdominal Pain Stated Complaint: abd swelling Time Seen by Provider: 08/13/21 16:06 - History of Present Illness Initial Comments: This is a pleasant 70-year-old male with history of multiple medical comorbidities to include congestive heart failure, COPD, diabetes mellitus, GI bleeding, hypertension, liver disease, renal disease, lung cancer. Patient had a paracentesis done on Wednesday by Dr. Nunez. Since going home the patient has had increasing pain to the left flank and left upper quadrant area. Patient now has developed a mass and bruising to the area. Denies fever or chills. Denies any changes in breathing status. No chest pain. No headache, no fever or chills, no changes in vision or hearing, no sore throat or difficulty with speech, no neck pain, no chest pain or shortness of breath, no nausea or vomiting, no changes in urination or bowel movements, no numbness or tingling, no extremity pain, no skin rashes or lesions. (Santino Avila) - Related Data Home Medications Medication Instructions Recorded Confirmed Alendronate Sodium [Fosamax] 70 mg PO WE 11/06/13 08/13/21 Ergocalciferol (Vitamin D2) 1,250 mcg PO Q15D 11/06/13 08/13/21 [Drisdol] Fludrocortisone [Florinef] 0.1 mg PO DAILY 11/06/13 08/13/21 Metoprolol Succinate (ER) [Toprol 100 mg PO DAILY 11/06/13 08/13/21 XL] Tacrolimus [Prograf] 2 mg PO BID 11/06/13 08/13/21 Multivitamins, Thera [Multivitamin 1 tab PO DAILY 07/23/16 08/13/21 (formulary)] Ferrous Sulfate [Iron (65 MG 325 mg PO BID 09/29/16 08/13/21 Elemental)] Allopurinol [Zyloprim] 100 mg PO BID 05/06/17 08/13/21 Metoclopramide [Reglan] 10 mg PO DAILY 05/06/17 08/13/21 Omeprazole [PriLOSEC] 40 mg PO BID 03/02/18 08/13/21 Sertraline [Zoloft] 50 mg PO DAILY 03/02/18 08/13/21 Tacrolimus [Prograf] 0.5 mg PO BID 08/16/19 08/13/21 Tamsulosin HCl [Flomax] 0.4 mg PO HS 08/16/19 08/13/21 Atorvastatin [Lipitor] 10 mg PO DAILY 05/30/20 08/13/21 Sodium Bicarbonate 650 mg PO BID 08/05/20 08/13/21 HYDROcodone/APAP 5-325MG [[place] 1 tab PO TID 08/15/20 08/13/21 5-325] Azithromycin [Zithromax] 250 mg PO MOWEFR 09/30/20 08/13/21 Magnesium Oxide [Mag-Ox] 400 mg PO BID 11/21/20 08/13/21 calcitrioL [Calcitriol] 0.25 mcg PO TUFR 11/21/20 08/13/21 Ipratropium-Albuterol Nebulize 3 ml INHALATION RT-QID PRN 12/10/20 08/13/21 [Duoneb 0.5 mg-3 mg/3 ml Soln] amLODIPine [Norvasc] 5 mg PO DAILY 04/28/21 08/13/21 Ammonium Lactate Cream [Lac-Hydrin 1 applic TOPICAL BID 06/03/21 08/13/21 12% Cream] Ketoconazole [Ketoconazole 2% 1 applic TOPICAL MOWEFR 06/03/21 08/13/21 Shampoo] Furosemide [Lasix] 40 mg PO DAILY@0900 06/19/21 08/13/21 Gammagard 35,000 mg IV Q30D 06/19/21 08/13/21 Insulin Detemir [Levemir Flextouch 40 units SQ DAILY 06/19/21 08/13/21 Pen] Lisinopril [Prinivil] 10 mg PO BID 06/19/21 08/13/21 levETIRAcetam [Keppra] 500 mg PO BID 06/19/21 08/13/21 predniSONE 5 mg PO W/BRKFST 06/19/21 08/13/21 mycophenolate mofetiL [Cellcept] 500 mg PO BID 07/04/21 08/13/21 Previous Rx's Medication Instructions Recorded Cefdinir 300 mg PO Q12HR #14 cap 08/13/21 Allergies Allergy/AdvReac Type Severity Reaction Status Date / Time clarithromycin [From Biaxin] AdvReac instructed Verified 08/13/21 15:26 not to take r/t lung transplant grapefruit AdvReac Unknowninstructed Verified 08/13/21 15:26 not to take r/t lung transplant ibuprofen [From Motrin] AdvReac instructed Verified 08/13/21 15:26 not to take r/t lung transplant orange juice AdvReac instructed Verified 08/13/21 15:26 not to take r/t lung transplant Review of Systems ROS Other: All systems not noted in ROS Statement are negative. <Santino Avila - Last Filed: 08/14/21 00:37> ROS Other: All systems not noted in ROS Statement are negative. <Leena Saini - Last Filed: 08/15/21 22:48> ROS Statement: Those systems with pertinent positive or pertinent negative responses have been documented in the HPI. Past Medical History Past Medical History: Cancer, Heart Failure, COPD, Diabetes Mellitus, GERD/Reflux, GI Bleed, Hyperlipidemia, Hypertension, Liver Disease, Osteoarthritis (OA), Pneumonia, Prostate Disorder, Renal Disease, Respiratory Disorder Additional Past Medical History / Comment(s): recent fall and 9th rib fracture, hyperkalemia/acute kidney injury/ascities/transaminitis. Other hx; 2009 bilateral lung transplants, pt has had pne since transplant and prior to transplant had copd/pneumonia/pulmonary , skin cancer removed from nose, fibrosis/bronchitis/past chronic respiratory failure, chronic abdominal pain, liver cirrhosis, ascities with frequent paracentesis, lower GI bleed, diverticular disease, IDDM type II neuropathy bilateral hands/feet, CKD stage III, hypogammaglobulinemia with IVIG infusions, gout, diverticular disease, benign colon polyp, R abdominal hernia, BPH with surgery, chronic back pain, DDD History of Any Multi-Drug Resistant Organisms: None Reported Past Surgical History: Heart Catheterization, Hernia Repair Additional Past Surgical History / Comment(s): [address] [facility], umbilical/bilateral inguinal hernia repairs and a femoral hernia repair, TURP, colonoscopy with benign polypectomy, bilateral cataract removals/lens implants, multiple large volume paracentesis procedures, skin cancer removed from nose Past Anesthesia/Blood Transfusion Reactions: No Reported Reaction Past Psychological History: Anxiety, Depression Smoking Status: Former smoker Past Alcohol Use History: None Reported Past Drug Use History: None Reported - Past Family History Mother Family Medical History: Asthma, COPD Additional Family Medical History / Comment(s): Mother at age 73 from asthma or COPD. Father Family Medical History: Asthma, Pneumonia Additional Family Medical History / Comment(s): Father at age 68 from asthma. Brother(s) Additional Family Medical History / Comment(s): Patient states he has 6 brothers and 5 sisters and is not sure of their medical history. Some have passed. Patient has one daughter with no major medical problems. <Santino Avila - Last Filed: 08/14/21 00:37> General Exam Limitations: no limitations General appearance: alert, in distress Head exam: Present: atraumatic, normocephalic, normal inspection Eye exam: Present: normal appearance, PERRL, EOMI. Absent: scleral icterus, conjunctival injection, periorbital swelling ENT exam: Present: normal exam, normal oropharynx, mucous membranes moist, TM's normal bilaterally, normal external ear exam Neck exam: Present: normal inspection. Absent: tenderness, meningismus, lymphadenopathy Respiratory exam: Present: rales. Absent: respiratory distress, wheezes, rhonchi, stridor Cardiovascular Exam: Present: regular rate, normal rhythm, normal heart sounds. Absent: systolic murmur, diastolic murmur, rubs, gallop, clicks GI/Abdominal exam: Present: soft, tenderness, normal bowel sounds, mass, other (Patient has a palpable mass in the left upper quadrant and left flank with overlying bruising. There is evidence of an area of puncture from the aforementioned paracentesis. There is no evidence of overlying erythema.). Absent: distended, guarding, rebound, rigid Extremities exam: Present: normal inspection, full ROM, normal capillary refill. Absent: tenderness, pedal edema, joint swelling, calf tenderness Back exam: Present: normal inspection Neurological exam: Present: alert, oriented X3, CN II-XII intact Psychiatric exam: Present: normal affect, normal mood Skin exam: Present: warm, dry, intact, normal color. Absent: rash <Santino Avila - Last Filed: 08/14/21 00:37> - General Exam Comments Initial Comments: Disheveled and cachectic appearing elderly male in moderate distress secondary to abdominal pain. ([place]Santino) Course <Santino Avila - Last Filed: 08/14/21 00:37> Vital Signs 08/13/21 08/13/21 08/13/21 15:26 16:55 16:56 Temperature 97.7 F Pulse Rate 67 Respiratory 20 Rate Blood Pressure 117/63 140/68 O2 Sat by Pulse 99 100 100 Oximetry 08/13/21 08/13/21 08/13/21 16:58 17:00 17:30 Temperature Pulse Rate 66 Respiratory 18 Rate Blood Pressure 140/68 140/68 122/70 O2 Sat by Pulse 100 100 100 Oximetry 08/13/21 08/13/21 08/13/21 18:00 18:30 20:17 Temperature Pulse Rate 67 Respiratory 16 Rate Blood Pressure 122/69 122/66 126/74 O2 Sat by Pulse 100 100 96 Oximetry - Reevaluation(s) Reevaluation #1: 08/13/21 19:39 Medical record is reviewed Symptoms are improved here in the emergency department Patient is informed of results and questions answered Patient in no distress ([place]Santino) Medical Decision Making - Lab Data Result diagrams: 08/13/21 16:29 08/13/21 16:29 <Santino Avila - Last Filed: 08/14/21 00:37> - Lab Data Result diagrams: 08/13/21 16:29 08/13/21 16:29 <Leena Saini - Last Filed: 08/15/21 22:48> - Medical Decision Making She presents after paracentesis. Patient was noted to have low platelets. Suspect hematoma. However other intra-abdominal inflammatory versus infectious etiology is not ruled out. Basic laboratory work and computed tomography scan ordered. Cannot do contrast due to the patient's renal function. Given the patient's findings of a large hematoma in the left abdomen area did offer admission to the patient. Patient adamant that he wants to go home. Patient's pain is controlled. I did discuss this case with ED attending physician, Dr. Saini. I give the patient 1 dose of Kayexalate. Patient has a follow-up appointment tomorrow with his cotton jammer. Discussed limitations. Discussed return and follow-up parameters in detail. He Will Make His Own Medical Decisions. Patient Chooses to Be Treated Outpatient Basis. Patient hemodynamically stable with normal vital signs at discharge. (Santino Avila) I was available for consultation in the emergency department. The history and physical exam were done by the midlevel provider. I was consulted for this patients care. I reviewed the case with the midlevel provider and based on their presentation of the patient, I agree with the assessment, medical decision making and plan of care as documented. Chart was dictated using [employer] dictation software. Attempts were made to correct any dictation errors however some typographical errors may persist. Patient was seen during a national state of emergency due to the Covid-19 pandemic. (Leena Saini) - Lab Data Lab Results 08/13/21 08/13/21 08/13/21 Range/Units 16:29 16:29 16:29 WBC 7.4 (3.8-10.6) k/uL RBC 3.46 L (4.30-5.90) m/uL Hgb 11.3 L (13.0-17.5) gm/dL Hct 34.9 L (39.0-53.0) % MCV 100.9 H (80.0-100.0) fL MCH 32.8 (25.0-35.0) pg MCHC 32.5 (31.0-37.0) g/dL RDW 16.6 H (11.5-15.5) % Plt Count 94 L (150-450) k/uL MPV 8.9 Neutrophils % 84 % Lymphocytes % 6 % Monocytes % 7 % Eosinophils % 2 % Basophils % 0 % Neutrophils # 6.2 (1.3-7.7) k/uL Lymphocytes # 0.4 L (1.0-4.8) k/uL Monocytes # 0.5 (0-1.0) k/uL Eosinophils # 0.1 (0-0.7) k/uL Basophils # 0.0 (0-0.2) k/uL Anisocytosis Slight Macrocytosis Slight PT (9.0-12.0) sec INR (<1.2) APTT (22.0-30.0) sec Sodium 132 L (137-145) mmol/L Potassium 5.4 H (3.5-5.1) mmol/L Chloride 103 (98-107) mmol/L Carbon Dioxide 21 L (22-30) mmol/L Anion Gap 8 mmol/L BUN 88 H (9-20) mg/dL Creatinine 1.61 H (0.66-1.25) mg/dL Est GFR (CKD-EPI)AfAm 49 (>60 ml/min/1.73 sqM) Est GFR (CKD-EPI)NonAf 42 (>60 ml/min/1.73 sqM) Glucose 178 H (74-99) mg/dL Plasma Lactic Acid Jaden (0.7-2.0) mmol/L Calcium 8.7 (8.4-10.2) mg/dL Total Bilirubin 0.5 (0.2-1.3) mg/dL AST 43 (17-59) U/L ALT 35 (4-49) U/L Alkaline Phosphatase 180 H (38-126) U/L Total Protein 6.2 L (6.3-8.2) g/dL Albumin 3.5 (3.5-5.0) g/dL Lipase 62 (23-300) U/L Urine Color Yellow Urine Appearance Clear (Clear) Urine pH 5.5 (5.0-8.0) Ur Specific [place] 1.012 (1.001-1.035) Urine Protein 1+ H (Negative) Urine Glucose (UA) Negative (Negative) Urine Ketones Negative (Negative) Urine Blood Trace H (Negative) Urine Nitrite Negative (Negative) Urine Bilirubin Negative (Negative) Urine Urobilinogen <2.0 (<2.0) mg/dL Ur Leukocyte Esterase Large H (Negative) Urine RBC 5 (0-5) /hpf Urine WBC 76 H (0-5) /hpf Hyaline Casts 9 H (0-2) /lpf Urine Mucus Rare H (None) /hpf 08/13/21 08/13/21 Range/Units 16:29 16:29 WBC (3.8-10.6) k/uL RBC (4.30-5.90) m/uL Hgb (13.0-17.5) gm/dL Hct (39.0-53.0) % MCV (80.0-100.0) fL MCH (25.0-35.0) pg MCHC (31.0-37.0) g/dL RDW (11.5-15.5) % Plt Count (150-450) k/uL MPV Neutrophils % % Lymphocytes % % Monocytes % % Eosinophils % % Basophils % % Neutrophils # (1.3-7.7) k/uL Lymphocytes # (1.0-4.8) k/uL Monocytes # (0-1.0) k/uL Eosinophils # (0-0.7) k/uL Basophils # (0-0.2) k/uL Anisocytosis Macrocytosis PT 11.0 (9.0-12.0) sec INR 1.0 (<1.2) APTT 24.3 (22.0-30.0) sec Sodium (137-145) mmol/L Potassium (3.5-5.1) mmol/L Chloride (98-107) mmol/L Carbon Dioxide (22-30) mmol/L Anion Gap mmol/L BUN (9-20) mg/dL Creatinine (0.66-1.25) mg/dL Est GFR (CKD-EPI)AfAm (>60 ml/min/1.73 sqM) Est GFR (CKD-EPI)NonAf (>60 ml/min/1.73 sqM) Glucose (74-99) mg/dL Plasma Lactic Acid Jaden 1.1 (0.7-2.0) mmol/L Calcium (8.4-10.2) mg/dL Total Bilirubin (0.2-1.3) mg/dL AST (17-59) U/L ALT (4-49) U/L Alkaline Phosphatase (38-126) U/L Total Protein (6.3-8.2) g/dL Albumin (3.5-5.0) g/dL Lipase (23-300) U/L Urine Color Urine Appearance (Clear) Urine pH (5.0-8.0) Ur Specific [place] (1.001-1.035) Urine Protein (Negative) Urine Glucose (UA) (Negative) Urine Ketones (Negative) Urine Blood (Negative) Urine Nitrite (Negative) Urine Bilirubin (Negative) Urine Urobilinogen (<2.0) mg/dL Ur Leukocyte Esterase (Negative) Urine RBC (0-5) /hpf Urine WBC (0-5) /hpf Hyaline Casts (0-2) /lpf Urine Mucus (None) /hpf Disposition Is patient prescribed a controlled substance at d/c from ED?: No Time of Disposition: 19:42 <Santino Avila - Last Filed: 08/14/21 00:37> <Leena Saini - Last Filed: 08/15/21 22:48> Clinical Impression: Abdominal wall hematoma, Acute UTI Disposition: HOME SELF-CARE Condition: Stable Instructions (If sedation given, give patient instructions): Urinary Tract Infection in Men (ED), Hyperkalemia (ED), Hematoma (ED) Additional Instructions: Follow-up with your primary care physician on Wednesday. Follow-up with your cotton jammer tomorrow as planned. Take the antibiotic as directed unless otherwise instructed. Refrain from any strenuous exertion or activity which could injure the affected area on her abdomen. Make sure you tell the kidney doctor that you were here in the ER and had blood work done today. You need to have your potassium rechecked. He will also need to have your other blood work rechecked by her regular doctor. Mainly the hemoglobin and platelets. Follow-up with your regular physician as directed. Return to the ER immediately if any symptoms worsen, new symptoms arise, or any other problems develop. Prescriptions: Cefdinir 300 mg PO Q12HR #14 cap Referrals: Louie Alaniz MD [Primary Care Provider] - 1-2 days
[2021-08-13 16:56] LABS: Partial Thromboplastin Time 24.3 sec (22.0-30.0)
[2021-08-13 16:57] LABS: Albumin 3.5 g/dL (3.5-5.0); Calcium 8.7 mg/dL (8.4-10.2); Potassium 5.4 mmol/L (3.5-5.1); Total Bilirubin 0.5 mg/dL (0.2-1.3); Total Protein 6.2 g/dL (6.3-8.2)
--- NOTE | 2021-08-13 17:08 | XR ---
EXAMINATION TYPE: XR chest 1V portable DATE OF EXAM: 08/13/2021 COMPARISON: 06/19/2021 HISTORY: Abdominal pain chest pain TECHNIQUE: Single view FINDINGS: There is no heart failure. There is slight blunting of the right costophrenic angle. Thorac ic aorta is atheromatous. There is previous thoracic surgery. There is pleural thickening along the r ight lateral chest wall. IMPRESSION: Pleural scarring on the right side without change. Pulmonary fibrotic changes. No heart f ailure. No acute lung disease.
--- NOTE | 2021-08-13 17:57 | CT ---
EXAMINATION TYPE: CT abdomen pelvis wo con DATE OF EXAM: 08/13/2021 COMPARISON: 12/14/2020 HISTORY: Left upper quadrant and left flank pain post paracentesis [address] DLP: 526 mGycm Automated exposure control for dose reduction was used. Images obtained from the diaphragm to the floor the pelvis without contrast. There is some linear infiltrate or atelectasis at the right lung base. There is mild pleural thickeni ng right lung base. Heart is borderline enlarged. There is abdominal ascites fluid seen in the paracolic gutters. There is subcutaneous soft tissue den sity on the right anterior mid abdominal wall. This does not appear to be a hernia sac. There is rick cent ventral hernia containing fat. This area overall measures 6 x 2 cm. There is subcutaneous fluid accumulation on the left lateral abdomen that measures up to 3 cm in thickness. There are calcified g allstones. The bile ducts are not dilated. Spleen is intact. There is no evidence of pancreatic mass. The stomach is intact. There is moderate vascular calcification. There is no adrenal mass. Kidneys have normal size. There is no hydronephrosis. Ureters are not dilat ed. There are multiple sigmoid diverticula. There is urinary bladder wall thickening and irregular wa ll consistent with nonspecific cystitis and prostate surgery. There is no inguinal hernia. The lumbar vertebrae have normal alignment. There is disc space narrowing at L3-4. The bony pelvis is intact. The hip joints are intact. There is mild lumbar dextroscoliosis. There is no evidence of a bowel obstruction. There is no free air. IMPRESSION: Extensive subcutaneous fluid accumulation over the left lateral abdomen. Abdominal ascites. Cholelith iasis. Pleural thickening and atelectasis and scarring at the right lung base similar to old exam. Abdominal ascites slightly improved compared to the old exam. Abdominal wall fluid is new compared to old exam . Urinary bladder abnormalities as above not changed compared to old exam.
[2021-08-13] MEDS ORDERED: SODIUM POLYSTYRENE SULFONATE 15 GM/60 ML BOTTLE PO STA (19:38)
[2021-08-13] MEDS ORDERED: cefTRIAXone IN SWFI 1,000 MG/10 ML SYRINGE IVP STA (19:38)
[2021-08-13 20:20] VITALS: BP 126/74; PULSE 67; RESP 16
== END 2021-08-13 20:22 | disposition home or self-care (01) ==
LOC: EC 14:40
DX: S30.1XXA Contusion of abdominal wall, initial encounter (principal); N39.0 Urinary tract infection, site not specified; I11.0 Hypertensive heart disease with heart failure; E78.5 Hyperlipidemia, unspecified; M19.90 Unspecified osteoarthritis, unspecified site; F41.9 Anxiety disorder, unspecified; F32.A Depression, unspecified; Z87.891 Personal history of nicotine dependence; I12.9 Hypertensive chronic kidney disease with stage 1 through stage 4 chronic kidney disease, or unspecified chronic kidney disease; N18.30 Chronic kidney disease, stage 3 unspecified; I50.9 Heart failure, unspecified; K21.9 Gastro-esophageal reflux disease without esophagitis; J44.9 Chronic obstructive pulmonary disease, unspecified; E11.22 Type 2 diabetes mellitus with diabetic chronic kidney disease; Z79.4 Long term (current) use of insulin
CPT/HCPCS: 36415; 80053; 83605; 83690; 85025; 85610; 85730; 81001; 87086; 71045; 74176; 99284; 96374; 96375 ×2; J2405; J0696; J1170

== ENCOUNTER 2021-09-08 12:36 | Day surgery (SDC) | payer MEDICARE, OTHER ==
[2021-09-08 13:07] LABS: Mean Platelet Volume 9.7
[2021-09-08 13:11] VITALS: TEMP 97.7
[2021-09-08 13:14] LABS: Platelet Count 81 k/uL (150-450)
[2021-09-08 13:19] LABS: INR 1.1 (<1.2)
[2021-09-08] MEDS: ALBUMIN HUMAN 25% 50 ML in EMPTY BAG 1 BAG IVPB SCH ×3 (14:00→14:44)
[2021-09-08 15:03] VITALS: RESP 16
[2021-09-08 15:20] VITALS: BP 131/68; PULSE 60
--- NOTE | 2021-09-08 15:31 | US ---
EXAMINATION TYPE: US paracentesis abd w/image DATE OF EXAM: 09/08/2021 COMPARISON: NONE HISTORY: Ascites. PROCEDURE: Maximal barrier technique was utilized. The skin overlying a suitable pocket of fluid was localized with ultrasound and the overlying skin was prepped and draped. Ultrasound was utilized with sterile technique. Lidocaine was used for local anesthesia and a skin meri made with a scalpel. Catheter was advanced under direct ultrasound guidance into a suitable pocket of fluid and approximately 5.6 liter s of serous fluid were removed. Catheter was withdrawn and hemostasis achieved. There is no immedia te complication; the patient is discharged in stable condition. IMPRESSION: STATUS POST ULTRASOUND GUIDED PARACENTESIS FOR PALLIATION OF ASCITES. THIS PROCEDURE WA S PERFORMED BY THE UNDERSIGNED.
== END 2021-09-08 15:20 | disposition home or self-care (01) ==
LOC: RADPROMAIN 12:36
PROVIDERS: ATTEND Internal Medicine Gastroenterology
DX: K74.60 Unspecified cirrhosis of liver (principal); R18.8 Other ascites
CPT/HCPCS: 82565; 82947; 85049; 85610; 36415; 49083; P9047

== ENCOUNTER → 2021-09-09 | Outpatient (CLI) | payer MEDICARE, OTHER ==
[2021-09-09 14:22] VITALS: PULSE 62
== END ==
LOC: CPPFTMAIN 13:27
PROVIDERS: ATTEND Internal Medicine
DX: Z94.2 Lung transplant status (principal); Z88.1 Allergy status to other antibiotic agents; Z88.6 Allergy status to analgesic agent; Z91.018 Allergy to other foods; Z87.891 Personal history of nicotine dependence
CPT/HCPCS: 94640; 94642